=== PATIENT | female | born 1975 | race Caucasian/White ===

== ENCOUNTER 2025-06-01 23:32 | Emergency (ER) | payer OTHER, SELFPAY ==
--- NOTE | ~2025-06-01 | CT_ITS ---
EXAMINATION: CT abdomen pelvis w con DATE: 06/02/2025 02:05 INDICATION: Pelvic pain. Abscess. TECHNIQUE: Computed tomography (CT) of the abdomen and pelvis was performed with 100 mL Omnipaque-350 intravenous contrast. Automated exposure control and iterative reconstruction technique were employe d. The dose-length product was 2111.97 mGy-cm. COMPARISON: None FINDINGS: Lung bases are clear. Heart size normal. No pericardial or pleural effusion. Multiple small calcified gallstones the dependent aspect of the normal-appearing gallbladder. Liver, spleen, pancreas, bilate ral adrenal glands and kidneys are normal. Bowels including appendix are normal. Bladder, anteverted uterus and bilateral adnexa are unremarkable. No free intraperitoneal gas or fluid. There is prominen t soft tissue gas and stranding in the subcutaneous fat at the right pudendal region extending cephal ad into the right inguinal region and with minimal amount of gas within the right inguinal canal prop er which is concerning for necrotizing fasciitis. No abscess. Mild likely reactive right inguinal lym phadenopathy. No other pathologically enlarged abdominal or pelvic lymphadenopathy. Bones are unremar kable. IMPRESSION: 1. Stranding in soft tissue gas in the subcutaneous tissues at the right pudendal and inguinal region s suspicious for necrotizing fasciitis. Emergent surgical consultation was recommended and findings d iscussed with Dr. Nubia Benson by Dr. Rajesh Liu at 2:31 AM (-05:00). 2. Cholelithiasis. No acute intra-abdominal/pelvic process. Reviewed, dictated and finalized at location A. IMPRESSION: 1. Stranding in soft tissue gas in the subcutaneous tissues at the right pudend al and inguinal regions suspicious for necrotizing fasciitis. Emergent surgical consultation was recommended and findings discussed with Dr. Nubia Benson b y Dr. Rajesh Liu at 2:31 AM (-05:00). 2. Cholelithiasis. No acute intra-abdominal/pelvic process.
[2025-06-02] VITALS (14 sets, daily range): BP systolic 108–122; BP diastolic 42–60; PULSE 89–103; RESP 14–36; TEMP 36.6; O2SAT 96–99
--- OUTSIDE RECORDS SUMMARY | 2025-06-02 00:12 | XMS_ITS | Encounter Summary ---
Author Organization [facility] Address [address] [place] [address] Care Team Providers Care Systems Engineer Name Role Phone Rosie Aguilera DO Primary Care Provider [phone] Encounter Details Date Type Department Care Team (Late Contact Info) Description 05/22/2025 Results Follow-Up [facility] Family & Internal Medicine [address] [phone] Rosie Aguilera DO [address] [address] LIPID PANEL, BASIC METABOLIC PANEL, ALBUMIN URINE RANDOM W/CREATININE Social History Tobacco Use Types Packs/Day Years Used Date Smoking Tobacco: Never Smokeless Tobacco: Never Comments:Counseled by Dr Charisse vu. 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 [address] [place] [address] 12/26/2025 10:20 AM CDT Office Visit [facility] Medical Group Pulmonology Specialty Clinic - [address] [place] [address] Sebastien Naik MD 3 [facility] [address] [place] [address] documented as of this encounter Visit Diagnoses Diagnosis Dyslipidemia- Primary Other and unspecified hyperlipidemia documented in this encounter Additional Health Concerns Assessment Noted Time PHQ-9 Depression Total Score: 8 05/21/20 23 1:09 PM CDT documented as of this encounter Care Teams Systems Engineer Relationship Specialty Start Date End Date Rosie Aguilera DO [address] [place] [address] PCP - General FAMILY PRACTICE 05/21/25 documented as of this encounter
--- OUTSIDE RECORDS SUMMARY | 2025-06-02 00:12 | XMS_ITS | Encounter Summary ---
Author Organization [facility] Address [facility] [place] [address] Care Team Providers Care Spa Assistant Manager Name Role Phone Rosie Aguilera DO Primary Care Provider Encounter Details Date Type Department Care Team (Late st Contact Info) Description 05/21/2023 MyChart Message Enc [facility] Medical Group Multispecialty Care - [place] [address] [place] [address] [address] [place] [address] Sarthak Munguia MD [address] [place] [address] [address] [place] [address] Ileana Social History Tobacco Use Types Packs/Day Years Used Date Smoking Tobacco: Never Smokeless Tobacco: Never Comments:Counseled by Dr Charisse vu. 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 Question Answer Date of Assessment Author Status Little interest or pleasure in doing things Several days 05/21/2023 1:09 PM CDT Pennie Giordano Activ e Feeling down, depressed, or hopeless Several days 05/21/2023 1:09 PM CDT Pennie Giordano Active Patient Health Questionnaire-2 Score 2 05/21/2023 1:09 PM CDT Pennie Giordano Active * Question Answer Date of Assessment Author Status Trouble falling or staying asleep, or sleeping too much Nearly every day 05/21/2023 1:09 PM CDT Pennie Giordano Active Feeling tired or having little energy More than half the days 05/21/2023 1:09 PM CDT Pennie Giordano Active Poor appetite or overeating Not at all 05/21/2023 1:09 PM CDT Pennie Giordano Active Feeling bad about yourself - or that you are a failure or have let yourself or your family down Several days 05/21/2023 1:09 PM CDT Pennie Giordano Active Trouble concentrating on things, such as reading the newspaper or watching television Not at all 05/21/2023 1:09 PM SHUKRIT Pennie Giordano Active Moving or speaking so slowly that other people could have noticed? Or the opposite - being so fidgety or restless that you have been moving around a lot more than usual. Not at all 05/21/2023 1:09 PM SHUKRIT Pennie Giordano Active Thoughts that you would be better off or hurting yourself in some way Not at all 05/21/2023 1:09 PM CDT Pennie Giordano Active Patient Health Questionnaire-9 Score 8 05/21/2023 1:09 PM SHUKRIT Pennie Giordano Active * Calculated C-SSRS Risk Score (Lifetime/Recent) Answer Date of Assessment Author Status No Risk Indicated 05/21/2023 1:38 PM CDT Sarthak Munguia MD Active * If you checked off any problems on this questionnaire so far, Question Answer Date of Assessment Author Status How difficult have these problems made it for you to do your work, take care of things at home, or get along with other people? Somewhat difficult 05/21/2023 1:09 PM Pennie Brody Active * Over the last 2 weeks, how often have you been bothered by any of the following problems? Question Answer Date of Assessment Author Status Feeling nervous, anxious, or on edge 1 05/21/2023 1:10 PM CDT Giordano, Pennie D Activ e Not being able to stop or control worrying 0 05/21/2023 1:10 PM CDT Giordano Pennie D Acti ve Worrying too much about different things 0 05/21/2023 1:10 PM CDT Giordano Pennie D Acti ve Trouble relaxing 1 05/21/2023 1:10 PM CDT Echharris salgado Pennie D Active Being so restless that it is hard to sit still 0 05/21/2023 1:10 PM CDT Giordano, Pennie D Act abbie Becoming easily annoyed or irritable 3 05/21/2023 1:10 PM CDT Pasquale Pennie D Activ e Feeling afraid as if something awful might happen 0 05/21/2023 1:10 PM CDT Pasquale Pennie D Active SYD-7 Total Score 5 05/21/2023 1:10 PM CDT Latoya Orozcoi D Active * [place] Suicide Severity Rating Scale (Screener/Recent Self-Report) Question Answer Date of Assessment Author Status 1. Wish to be (Past 1 Month) No 05/21/2023 1:38 PM CDT Sarthak Munguia MD Active 2. Non-Specific Active Suici delmar Thoughts (Past 1 Month) No 05/21/2023 1:38 PM CDT Sarthak Munguia MD Active 6. Suicidal Behavior (Lifetime) No 05/21/2023 1:38 PM CDT Sarthak Munguia MD Active documented as of this encounter Plan of Treatment Upcoming Encounters Date Type Department Care Team (Late st Contact Info) Description 06/07/2025 9:00 AM CDT Office Visit [facility] Medical Group Family & Internal Medicine [address] [phone] Rosie Aguilera, DO [address] [address] 12/26/2025 10:20 AM CDT Office Visit [facility] Medical Group Pulmonology Specialty Clinic - [place] [address] [place] [address] Sebastien Naik MD [address] [place] [address] documented as of this encounter Visit Diagnoses Not on filedocumented in this encounter Additional Health Concerns Assessment Noted Time PHQ-9 Depression Total Score: 8 05/21/20 23 1:09 PM CDT documented as of this encounter Care Teams Spa Assistant Manager Relationship Specialty Start Date End Date Rosie Aguilera DO [address] [place] [address] PCP - General FAMILY PRACTICE 05/21/25 documented as of this encounter
--- OUTSIDE RECORDS SUMMARY | 2025-06-02 00:12 | XMS_ITS | Encounter Summary ---
Author Organization [facility] Address [facility] [place] [address] Care Team Providers Care Stadium Manager Name Role Phone Rosie Aguilera DO Primary Care Provider [phone] Encounter Details Date Type Department Care Team (Latest Contact Info) Description 11/17/2023 MyChart Message Enc [facility] Multispecialty Care - [place] [address] [address] [place] [address] [place] [address] [place] [address] [address] [place] [address] Pre-Authorization Needed for Farxiga 5mg Social History Tobacco Use Types Packs/Day Years Used Date Smoking Tobacco: Never Smokeless Tobacco: Never Comments:Counseled by Dr Charisse vu. 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 [place] [address] [place] [address] documented as of this encounter Visit Diagnoses Not on filedocumented in this encounter Additional Health Concerns Assessment Noted Time PHQ-9 Depression Total Score: 8 05/21/20 23 1:09 PM CDT documented as of this encounter Care Teams Stadium Manager Relationship Specialty Start Date End Date Rosie Aguilera DO [address] [place] [address] PCP - General FAMILY PRACTICE 05/21/25 documented as of this encounter
--- OUTSIDE RECORDS SUMMARY | 2025-06-02 00:12 | XMS_ITS | Encounter Summary ---
Author Organization [facility] Address [facility] [place] [address] Care Team Providers Care Jacket Changer Name Role Phone Rosie Aguilera DO Primary Care Provider [phone] Encounter Details Date Type Department Care Team (Latest Contact Info) Description 02/29/2024 MyChart Message Enc [facility] Multispecialty Care - [place] [address] [place] [address] [address] [place] [address] [place] [address] [place] [address] [address] [place] [address] Need Antibiotics for a skin Abcess Social History Tobacco Use Types Packs/Day Years Used Date Smoking Tobacco: Never Smokeless Tobacco: Never Comments:Counseled by Dr Charisse vu. 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 Gender Identity Female 05/21/2025 1:18 PM CDT Sexual Orientation Not on file documented as of this encounter Plan of Treatment Upcoming Encounters Date Type Department Care Team (Late st Contact Info) Description 06/07/2025 9:00 AM CDT Office Visit [facility] Medical Group Family & Internal Medicine - [address] [phone] Rosie Aguilera DO [address] [address] 12/26/2025 10:20 AM CDT Office Visit [facility] Medical Group Pulmonology Specialty Clinic - [address] [place] [address] Sebastien Naik MD [address] [place] [address] documented as of this encounter Visit Diagnoses Not on filedocumented in this encounter Additional Health Concerns Assessment Noted Time PHQ-9 Depression Total Score: 8 05/21/20 23 1:09 PM CDT documented as of this encounter Care Teams Jacket Changer Relationship Specialty Start Date End Date Rosie Aguilera DO [address] [place] [address] PCP - General FAMILY PRACTICE 05/21/25 documented as of this encounter
--- OUTSIDE RECORDS SUMMARY | 2025-06-02 00:12 | XMS_ITS | Encounter Summary ---
Author Organization [facility] Address [facility] [place] [address] Care Team Providers Care Core Dipper Name Role Phone Rosie Aguilera DO Primary Care Provider [phone] Encounter Details Date Type Department Care Team (Latest Contact Info) Description 05/26/2023 MyChart Message Enc [facility] Multispecialty Care - [place] [address] [place] [address] [address] [place] [address] [place] [address] [place] [address] 157 [place] [address] your rybelsus is approved thanks. Social History Tobacco Use Types Packs/Day Years Used Date Smoking Tobacco: Never Smokeless Tobacco: Never Comments:Counseled by Dr Charisse vu. 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 Gender Identity Female 05/21/2025 1:18 PM CDT Sexual Orientation Not on file documented as of this encounter Plan of Treatment Upcoming Encounters Date Type Department Care Team (Late st Contact Info) Description 06/07/2025 9:00 AM CDT Office Visit [facility] Medical Group Family & Internal Medicine - [address] [phone] Rosie Aguilera DO [address] [address] 12/26/2025 10:20 AM CDT Office Visit [facility] Medical Group Pulmonology Specialty Clinic - [address] [place] [address] Sebastien Niak MD [address] [place] [address] documented as of this encounter Visit Diagnoses Not on filedocumented in this encounter Additional Health Concerns Assessment Noted Time PHQ-9 Depression Total Score: 8 05/21/20 23 1:09 PM CDT documented as of this encounter Care Teams Core Dipper Relationship Specialty Start Date End Date Rosie Aguilera DO [address] [place] [address] PCP - General FAMILY PRACTICE 05/21/25 documented as of this encounter
--- OUTSIDE RECORDS SUMMARY | 2025-06-02 00:12 | XMS_ITS | Encounter Summary ---
Author Organization [facility] Address [facility] [place] [address] Care Team Providers Care Movie Theater Usher Name Role Phone Rosie Aguilera DO Primary Care Provider [phone] Encounter Details Date Type Department Care Team (Late st Contact Info) Description 06/10/2023 MyChart Message Enc [facility] Multispecialty Care - [place] [address] [address] [place] [address] [place] [address] [place] [address] 157 [place] [address] Blood Work Social History Tobacco Use Types Packs/Day Years Used Date Smoking Tobacco: Never Smokeless Tobacco: Never Comments:Counseled by Dr Charisse vu. 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 Gender Identity Female 05/21/2025 1:18 PM CDT Sexual Orientation Not on file documented as of this encounter Plan of Treatment Upcoming Encounters Date Type Department Care Team (Late st Contact Info) Description 06/07/2025 9:00 AM CDT Office Visit [facility] Family & Internal Medicine - [address] [phone] Rosie Aguilera DO [address] [address] 12/26/2025 10:20 AM CDT Office Visit [facility] Medical Group Pulmonology Specialty Clinic - [address] [place] [address] Sebastien Naik MD [address] [place] [address] [place] [address] documented as of this encounter Visit Diagnoses Not on filedocumented in this encounter Additional Health Concerns Assessment Noted Time PHQ-9 Depression Total Score: 8 05/21/20 23 1:09 PM CDT documented as of this encounter Care Teams Movie Theater Usher Relationship Specialty Start Date End Date Rosie Aguilera DO [address] [place] [address] PCP - General FAMILY PRACTICE 05/21/25 documented as of this encounter
--- OUTSIDE RECORDS SUMMARY | 2025-06-02 00:12 | XMS_ITS | Encounter Summary ---
Author Organization [facility] Address [facility] [place] [address] Care Team Providers Care Lean Engineer Name Role Phone Rosie Aguilera DO Primary Care Provider [phone] Encounter Details Date Type Department Care Team (Latest Contact Info) Description 05/26/2023 MyChart Message Enc [facility] Multispecialty Care - [address] [place] [address] Ana Stanton NP Prior authorization for Rybelsus Social History Tobacco Use Types Packs/Day Years Used Date Smoking Tobacco: Never Smokeless Tobacco: Never Comments:Counseled by Dr Charisse vu. 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 Gender Identity Female 05/21/2025 1:18 PM CDT Sexual Orientation Not on file documented as of this encounter Plan of Treatment Upcoming Encounters Date Type Department Care Team (Late st Contact Info) Description 06/07/2025 9:00 AM CDT Office [facility] Family & Internal Medicine - [address] [address] Rosie Aguilera DO [address] [address] 12/26/2025 10:20 AM CDT Office Visit [facility] Pulmonology Specialty Clinic - [address] [place] [address] Sebastien Naik MD [address] [place] [address] documented as of this encounter Visit Diagnoses Not on filedocumented in this encounter Additional Health Concerns Assessment Noted Time PHQ-9 Depression Total Score: 8 05/21/20 23 1:09 PM CDT documented as of this encounter Care Teams Lean Engineer Relationship Specialty Start Date End Date Rosie Aguilera DO [address] [place] [address] PCP - General FAMILY PRACTICE 05/21/25 documented as of this encounter
--- OUTSIDE RECORDS SUMMARY | 2025-06-02 00:12 | XMS_ITS | Encounter Summary ---
Author Organization [facility] Address [facility] [place] [address] Care Team Providers Care Sandwich Artist Name Role Phone Rosie Aguilera DO Primary Care Provider [phone] Encounter Details Date Type Department Care Team (Late st Contact Info) Description 05/24/2023 MyChart Message Enc [facility] Multispecialty Care - [place] [address] [address] [place] [address] Sarthak Munguia MD [address] [place] [address] [address] [place] [address] Ileana Social History Tobacco Use Types Packs/Day Years Used Date Smoking Tobacco: Never Smokeless Tobacco: Never Comments:Counseled by Dr Charisse vu. 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 Gender Identity Female 05/21/2025 1:18 PM CDT Sexual Orientation Not on file documented as of this encounter Plan of Treatment Upcoming Encounters Date Type Department Care Team (Late st Contact Info) Description 06/07/2025 9:00 AM CDT Office Visit [facility] Medical Group Family & Internal Medicine - [address] [address] Rosie Aguilera DO [address] [address] 12/26/2025 10:20 AM CDT Office Visit [facility] Medical Group Pulmonology Specialty Clinic - [address] [place] [address] Sebastien Naik MD [address] [place] [address] documented as of this encounter Visit Diagnoses Not on filedocumented in this encounter Additional Health Concerns Assessment Noted Time PHQ-9 Depression Total Score: 8 05/21/20 23 1:09 PM CDT documented as of this encounter Care Teams Sandwich Artist Relationship Specialty Start Date End Date Rosie Aguilera DO [address] [place] [address] PCP - General FAMILY PRACTICE 05/21/25 documented as of this encounter
--- OUTSIDE RECORDS SUMMARY | 2025-06-02 00:13 | XMS_ITS | Clinical Summary ---
Author Organization [facility] Address [address] [place] [address] Care Team Providers Care Greaser Helper Name Role Phone Rosie Aguilera DO Primary Care Provider [phone] Allergies Active Allergy Reactions Criticality Noted Date Comments Seasonal Runny Nose 05/21/2025 Medications insulin glargine (LANTUS SOLOSTAR) 100 UNIT/ML injection (PEN)Indications :Type 2 diabetes mellitus with hyperglycemia, with long-term current use of insulin ([facility]) Inject 28 Units into the skin nightly at bedtime. 15 mL 1 024 Active Additional Information Patient taking differently: 47 UnitsSubcutaneous Nightly at bedtime, Reported on 06/01/2025 insulin lispro, 1 Unit Dial, (HUMALOG) 100 UNIT/ML injection (PEN)Indications :Type 2 diabetes mellitus with hyperglycemia, with long-term current use of insulin ([facility]) Inject 6 Units into the skin 3 (three) times daily before meals. 9 mL 5 024 Active pravastatin (PRAVACHOL) 40 MG tabletIndication s:Type 2 diabetes mellitus with hyperglycemia, with long-term current use of insulin ([facility]),Hyperli pidemia associated with type 2 diabetes mellitus ([facility] HHS/HCC) TAKE 1 TABLET(40 MG) BY MOUTH EVERY NIGHT AT BEDTIME 90 tablet 1 024 Active lisinopril-hydro CHLOROthiazide (ZESTORETIC) 20-25 MG tabletIndication s:Type 2 diabetes mellitus with hyperglycemia, with long-term current use of insulin ([facility]),Hyperte nsion associated with type 2 diabetes mellitus ([facility]) take 1 tablet by mouth daily 90 tablet Active buPROPion XL (WELLBUTRIN XL) 150 MG 24 hr tabletIndication s:Anxiety,Episod e of recurrent major depressive disorder, unspecified depression episode severity TAKE 1 TABLET(150 MG) BY MOUTH EVERY MORNING 90 tablet 024 Active amLODIPine (NORVASC) 10 MG tablet Take 1 tablet (10 mg total) by mouth daily. Active venlafaxine XR (EFFEXOR-XR) 75 MG 24 hr capsule Take 1 capsule (75 mg total) by mouth daily. Active Drospirenone (SLYND) 4 MG Tab Take 4 mg by mouth daily. Active empagliflozin (JARDIANCE) 10 MG tabletIndication s:Type 2 diabetes mellitus with hyperglycemia, with long-term current use of insulin ([facility]) Take 1 tablet (10 mg total) by mouth daily. 30 tablet 2 025 Active atorvastatin (LIPITOR) 40 MG tabletIndication s:Dyslipidemia Take 1 tablet (40 mg total) by mouth nightly at bedtime. 30 tablet 3 025 Active estradiol (VIVELLE-DOT) 0.05 MG/24HR patch Place 1 patch (0.05 mg total) onto the skin twice a week. Active sulfamethoxazole -trimethoprim (BACTRIM DS) 800-160 MG tabletIndication s:Abscess Take 2 tablets by mouth 2 (two) times daily for 10 days. 40 tablet 025 2024 Active traMADol (ULTRAM) 50 MG tabletIndication s:Acute Pain < 7 Day Supply Take 1 tablet (50 mg total) by mouth every 6 (six) hours as needed for Pain. Indications: Acute Pain < 7 Day Supply 15 tablet 025 2024 Active nystatin (MYCOSTATIN) powderIndication s:Intertrigo Apply topically 2 (two) times daily. 30 g 025 Active Norgestimate-Eth inyl Estradiol 0.18/0.215/0.25 MG-25 MCG tabletIndication s: control counseling,Encou nter for surveillance of contraceptive pills Take 1 tablet by mouth daily. 28 tablet 023 2024 Discontin ued(Other - Please enter comment in Notes field) CPAP DEVICE, DME,Indications: CHUY (obstructive sleep apnea) Use nightly while sleeping; send to [facility]. 1 Device 023 2024 Discontin ued(Side effects) TRI-SPRINTEC 0.18/0.215/0.25 MG-35 MCG tablet Take 1 tablet by mouth daily. 023 2024 Discontin ued(Other - Please enter comment in Notes field) FLUoxetine (PROZAC) 20 MG capsuleIndicatio ns:Anxiety,Episo de of recurrent major depressive disorder, unspecified depression episode severity Take 3 capsules (60 mg total) by mouth daily. 270 capsule 1 023 2024 Discontin ued(Side effects) Semaglutide (RYBELSUS) 14 MG TabIndications:D iabetes Mellitus Take 14 mg by mouth daily. Indications: Diabetes 90 tablet 024 2024 Discontin ued(Side effects) Dapagliflozin Propanediol (FARXIGA) 5 MG TabIndications:T ype 2 diabetes mellitus with hyperglycemia, with long-term current use of insulin ([facility]) Take 1 tablet by mouth daily. 90 tablet 024 2024 Discontin ued(Side effects) buPROPion XL (WELLBUTRIN XL) 150 MG 24 hr tablet Take 1 tablet (150 mg total) by mouth daily. 2024 Discontin ued(Dupli rowena Med) SLYND 4 MG Tab 025 2024 Discontin ued(Dupli rowena Med) Active Problems Problem Noted Date Diagnosed Date Essential hypertension 03/08/2023 Morbid obesity 03/08/2023 Moderate episode of recurrent major depressive d isorder 08/12/2020 Overview (01/11/2023): Last Assessment & Plan: Stable Continue bupropion and fluoxetine BMI 60.0-69.9, adult 04/08/2018 Overview (01/11/2023): Last Assessment & Plan: BMI Follow-up includes: nutrition counseling, exercise counseling and education provided. Persistent disorder of initiating or maintaining sleep 04/08/2018 Obstructive sleep apnea 03/09/2018 Overview (01/11/2023): Last Assessment & Plan: Non compliant with CPAP Encouraged patient to use CPAP any time she sleeps or takes a nap Anxiety and depression 04/19/2017 Overview (01/11/2023): Last Assessment & Plan: Increase fluoxetine to 60mg daily Continue bupropion Encouraged her to start counseling Consider addition of buspar if anxiety remains uncontrolled Abnormal cervical Papanicolaou smear 04/06/2017 Type 2 diabetes mellitus ([facility]) 04/06 Overview (01/28/2023): Last Assessment & Plan: A1c today Continue omnipod Will check with insurance which GLP-1 is covered. Hyperlipidemia 01/24/2016 Overview (01/11/2023): Hyperlipidemia, unspecified hyperlipidemia type Last Assessment & Plan: Continue pravastatin Lipid panel today Resolved Problems Problem Noted Date Diagnosed Date Resolved Date Bilateral carpal tunnel syndrome 04/11/2020 05/18/2025 Overview (05/18/2025): Last Assessment & Plan: Recommended wearing wrist splints at night Referred to PMR for further management Difficulty using continuous positive airway pressure (CPAP) device 05/09/2018 05/18/2025 Left lower quadrant abdominal mass 04/28/2018 05/18/2025 Overview (05/18/2025): Last Assessment & Plan: states it is getting harder, reports no constitutional symptoms, I believe this is either due to injection or insect bite at this point I think we can safely follow her admitting have her try to use heat Encounters Date Type Department Care Team Description 06/01/2025 8:20 AM CDT Office Visit [facility] Family & Internal [address] [phone] Rosie Aguilera, DO Abscess (Pt is here today for a painful abscess on upper right inner thigh. Painful to walk. ) 06/01/2025 Abstract [facility] [place] [address] Delilah Hunt MA 06/01/2025 MyChart Message Enc [facility] [address] [phone] Rosie Aguilera, DO Abcess 06/01/2025 Travel 05/31/2025 Telephone [facility] [address] [phone] Rosie Aguilera, DO Advice (Nurse Triage - After Hours ([id number])/) 05/25/2025 Scan HEALTH INFO SRVCS Scanned, [facility] 05/25/2025 Telephone [facility] [address] [phone] Rosie Aguilera, DO Derm Problem 05/25/2025 MyChart Message Enc [facility] [address] [phone] Rosie Aguilera, DO [facility] 05/22/2025 MyChart Message Enc [facility] Family & Internal [address] [phone] Rosie Aguilera, DO Atorvastatin 05/22/2025 Results Follow-Up [facility] [address] [phone] Rosie Aguilera, DO LIPID PANEL, BASIC METABOLIC PANEL, ALBUMIN URINE RANDOM W/CREATININE 05/21/2025 1:00 PM CDT Office Visit [facility] Family & Internal Medicine [address] [phone] Rosie Aguilera, DO Meet and Greet Provider (P{t is here today for establish PCP. ); Hypertension; Hyperlipidemia; Diabetes 05/21/2025 Travel 03/15/2025 Scan [facility] HEALTH INFO SRVCS Scanned, [facility] 03/06/2025 Scan [facility] HEALTH INFO SRVCS Scanned, [facility] from Last 3 Months Immunizations Immunization Administration Dates Next Due Influenza (Generic) 10/18/2016 Influenza Adult (Generic) 07/26/2019,07/21/2018, 09/28/2016,07/18/2015 Tdap (Generic) 07/26/2019 Family History Medical History Relation Comments Depression Brother Cancer Father Lung Cancer Hypertension Father Cancer Maternal Grandfather Colon Cance r Colon Cancer Maternal Grandfather Diabetes Maternal Grandfather Heart Attack Maternal Grandfather Heart Disease Maternal Grandfather Hypertension Maternal Grandfather Diabetes Maternal Grandmother Heart Disease Maternal Grandmother Hypertension Maternal Grandmother Breast Cancer Maternal cousin Arthritis Mother COPD Mother Cancer Mother Kidney Cancer, S kin Cancer, Lung Cancer Diabetes Mother Early Mother at 72 in 20 20 Hyperlipidemia Mother Hypertension Mother Kidney Disease Mother Was on dialysis renal cancer Mother Diabetes Paternal Aunt Heart Attack Paternal Grandfather Heart Disease Paternal Grandfather Stroke Paternal Grandfather Cancer Paternal Grandmother Lukemia Diabetes Paternal Uncle 1 Diabetes Paternal Uncle 2 Diabetes Paternal Uncle 3 Thyroid cancer Sister 1 Cancer Sister 2 Thyroid Cancer Depression Sister 2 Relation Status Comments Brother Alive Father Alive Maternal Grandfather Maternal Grandmother Maternal cousin Mother Alive Paternal Aunt Paternal Grandfather Paternal Grandmother Paternal Uncle 1 Alive Paternal Uncle 2 Paternal Uncle 3 Alive Sister 1 Sister 2 Alive Social History Tobacco Use Types Packs/Day Years Used Date Smoking Tobacco: Never Smokeless Tobacco: Never Tobacco Cessation:Counseling Given: Yes Comments:Counseled by Dr Munguia. Alcohol Use Standard Drinks/Week Comments Never 0 (1 standard drink = 0.6 oz pur e alcohol) PHQ-2 Answer Date Recorded Patient Health Questionnaire-2 Score 1 05/21/2025 Comments No Sex and Gender Information Value Date Recorded Sex Assigned at Female 05/21/2025 1:18 PM CDT Legal Sex Female 8:24 AM ROUTE RETURNER Gender Identity Female 05/21/2025 1:18 PM CDT Sexual Orientation Not on file Last Filed Vital Signs Vital Sign Reading Time Taken Comments Blood Pressure 138/62 06/01/2025 8:08 AM CDT Pulse 113 06/01/2025 8:08 AM CDT Temperature 36.4 C (97.5 F) 06/01/2025 8:08 AM CDT Respiratory Rate 18 06/01/2025 8:08 AM CDT Oxygen Saturation 99% 06/01/2025 8:08 AM CDT Inhaled Oxygen Concentration - - Weight 159.5 kg (351 lb 11.2 oz) 06/01/2025 8:08 AM CDT Height 154.9 cm (5' 1) 06/01/2025 8:08 AM CDT Body Mass Index 66.45 06/01/2025 8:08 AM CDT Plan of Treatment Upcoming Encounters Date Type Department Care Team (Late st Contact Info) Description 06/07/2025 9:00 AM CDT Office Visit [facility] Family & Internal Medicine - [address] [phone] Rosie Aguilera DO 3 [facility] [address] [place] [address] 12/26/2025 10:20 AM CDT Office Visit [facility] Pulmonology Specialty Clinic - [address] [place] [address] Sebastien Naik MD 3 [facility] [address] [place] [address] Health Maintenance Due Date Last Done Comments Cervical Cancer Screening Pap Smear (Age 30 to 64) Every 3 Years 01/29/2024 01/28/2021 Annual Physical 05/21/2024 05/21/2023 Diabetes: Retinopathy Eye Exam 06/21/2025 Postponed from 1995 (Future Appointment) Hemoglobin A1C 08/21/2025 05/21/2025, 11/0 03/2023, 08/23/2023, Additional history exists Cervical Cancer Screening Pap with HPV Testing (Age 30 to 64) Every 5 Years 01/28/2026 01/28/2021 Cervical Cancer Screening with HPV 01/28/2026 COVID-19 Vaccine (2023- season) 2026 Postponed from 06/18/2024 (Patient Refused) Colorectal Cancer Screening Colonoscopy (10 Years) 05/21/2026 Postponed from 1977 (Patient Refused) Hepatitis B Vaccines (1 of 3 - 19+ 3-dose series) 05/21/2026 Postponed from 1996 (Patient/Guardian Refusal) Kidney Health Evaluation 05/21/2026 05/21/2025 Lipid Panel 05/21/2026 05/21/2025, 03/2023, 01/11/2023 Mammogram Screening 05/21/2026 04/09/2023, 03/03/2023, 11/14/2021, Additional history exists Postponed from 04/09/2025 (Patient Refused) Pneumococcal Vaccine: Pediatrics (0 to 5 Years) and At-Risk Patients (6 to 49 Years) (1 of 2 - PCV) 05/21/2026 Postponed from 1996 (Patient Refused) DTaP, Tdap and Td Vaccines (2 - Td or Tdap) 07/26/2029 07/26/2019 Hepatitis C Completed 08/23/2023 PHQ-2 (Physician Eek) Completed 05/21/2025 Meningococcal B Vaccine Aged Out No l onger eligible based on patient's age to complete this topic Meningococcal Vaccine Aged Out No dyan john eligible based on patient's age to complete this topic RSV Immunizations Under 20 Months Aged Out No longer eligible based on patient's age to complete this topic Procedures Procedure Name Priority Date/Time Associated Diagnosis Comments ALBUMIN URINE RANDOM W/CREATININE Routine 05/21/2025 4:21 PM CDT Type 2 diabetes mellitus with hyperglycemia, with long-term current use of insulin ([facility]) Essential hypertension BASIC METABOLIC PANEL Routine 05/21/2025 2:27 PM CDT Type 2 diabetes mellitus with hyperglycemia, with long-term current use of insulin ([facility]) Essential hypertension LIPID PANEL Routine 05/21/2025 2:27 PM CDT Hyperlipidemia, unspecified hyperlipidemia type COLLECTION VENOUS BLOOD VENIPUNCTURE Routine 05/21/2025 2:20 PM CDT Type 2 diabetes mellitus with hyperglycemia, with long-term current use of insulin ([facility]) Essential hypertension Hyperlipidemia, unspecified hyperlipidemia type COLLECT.CAPILLARY (FNGR,HEEL,EAR) Routine 05/21/2025 1:10 PM CDT Type 2 diabetes mellitus with hyperglycemia, with long-term current use of insulin ([facility]) HEMOGLOBIN, GLYCOSYLATED Routine 05/21/2025 HEPATITIS C ANTIBODY 08/23/2023 10:05 AM ROUTE RETURNER MG DIAG W JOE LT DIGI Routine 04/09/2023 1:25 PM CDT Abnormal mammogram from Last 3 Months or Most Recently Relevant to Health Maintenance Results * (ABNORMAL) ALBUMIN URINE RANDOM W/CREATININE (05/21/2025 4:21 PM CDT) MICROALBUMIN (U) 23.3(H) <20 MG/L 05/22/20 10:04 AM CDT [facility] CREATININE RANDOM (U) 127.5 MG/DL 05/22/2025 10:04 AM CDT [facility] ALBUMIN/CREAT RATIO 18.3 <30 MG/G 05/22/2025 10:04 AM CDT [facility] URINE SPECIMEN / Unknown 05/21/2025 4:21 PM CDT us Rosie Aguilera DO URINE ORDERABLES Final Result [facility] [address] [place] [address], [place] [phone] * (ABNORMAL) BASIC METABOLIC PANEL (05/21/2025 2:27 PM CDT) Pathologist [facility] SODIUM S/P/B 139 136 - 145 MMOL/L 05/22/2025 10:07 AM [facility] POTASSIUM S/P/B 4.9 3.5 - 5.1 MMOL/L 05/22/2025 10:07 AM [facility] CHLORIDE S/P/B 100 98 - 107 MMOL/L 05/22/2025 10:07 AM [facility] CO2 25.7 21 - 32 MMOL/L 05/22/2025 10:07 AM [facility] GLUCOSE 216(H) 70 - 99 MG/DL 05/22/2025 10:07 AM [facility] BUN 25(H) 7 - 18 MG/DL 05/22/2025 10:07 AM [facility] CREATININE S/P/B 0.84 0.55 - 1.02 MG/DL 05/22/2025 10:07 AM [facility] CALCIUM S/P/B 10.0 8.4 - 10.5 MG/DL 05/22/2025 10:07 AM [facility] ANION GAP 13.3 5 - 15 MMOL/L 05/22/2025 10:07 AM [facility] Comment:REFERENCE RANGE NOT ESTABLISHED OSMOLALITY (CALC) 299 MOSM/KG 025 10:07 AM [facility] Comment:REFERENCE RANGE NOT ESTABLISHED GFR ESTIMATE 86(L) >90 ML/MIN/1. 73 M2 05/22/2025 10:07 AM [facility] GFR NOTES GFR REFERENCE S: 05/22/2025 10:07 AM [facility] Comment: THE ESTIMATED GFR IS CALCULATED USING THE 2020 CKD-EPI EQUATION. THE FOLLOWING CATEGORIES FOR GRADING RENAL FUNCTION ARE RECOMMENDED BY THE INTERNATIONAL SOCIETY OF NEPHROLOGY (KDIGO 2012 CLINICAL PRACTICE GUIDELINE). G1,NORMAL OR HIGH: >89 ml/min/1.73 m2 G2,MILDLY DECREASED: 60-89 ml/min/1.73 m2 G3A,MILDLY TO MODERATELY DECREASED: 45-59 ml/min/1.73 m2 G3B,MODERATELY TO SEVERELY DECREASED: 30-44 ml/min/1.73 m2 G4,SEVERELY DECREASED: 15-29 ml/min/1.73 m2 G5,KIDNEY FAILURE: <15 ml/min/1.73 m2 05/21/2025 2:27 PM CDT Rosie Aguilera DO LABORATORY Final Result [facility] [address] [place] [address], * (ABNORMAL) LIPID PANEL (05/21/2025 2:27 PM CDT) CHOLESTEROL 235(H) <200 MG/DL 05/22/2025 10:07 AM CDT [facility] TRIGLYCERIDES 249(H) <150 MG/DL 05/22/2025 10:07 AM T [facility] HDL 71 >40 MG/DL 05/22/2025 10:07 AM CDT [facility] LDL-C 114(H) <100 MG/DL 05/22/2025 10:07 AM CDT [facility] VLDL CALCULATION 50(H) 5 - 28 MG/DL 05/22/2025 10:07 AM T [facility] CHOL/HDL RATIO 3.3 0.0 - 4.0 05/22/2025 10:07 AM CDT [facility] LDL/HDL 1.6 0.41 - 2.13 05/22/2025 10:07 AM T [facility] NON HDL CHOLESTEROL 164(H) <140 MG/DL 05/22/2025 10:07 AM T [facility] 05/21/2025 2:27 PM CDT Rosie Aguilera DO LABORATORY Final Result [facility] [id number] [facility] [place] [address], * HEMOGLOBIN, GLYCOSYLATED (05/21/2025) HGB A1C 10.7 % 05/21/2025 us [facility] Abstract LABORATORY Final Res ult * HEPATITIS C ANTIBODY (08/23/2023 10:05 AM ROUTE RETURNER) HEPATITIS C AB Non Reactive Non Reacti [facility] 1 Comment: HCV antibody alone does not differentiate between previously resolved infection and active infection. Equivocal and Reactive HCV antibody results should be followed up with an HCV RNA test to support the diagnosis of active HCV infection. 08/23/2023 10:0 5 AM ROUTE RETURNER 08/23/2023 Narrative [facility] - 08/24/2023 5:08 AM ROUTE RETURNER Performed at: 01 - [facility] [id number] Plumbing Manager: Maninder Saenz PhD, Phone: [phone] Sarthak Munguia MD LABORATORY Final Result [facility] [address] [place] [address] [facility] 1 * MG DIAG W JOE LT DIGI (04/09/2023 1:25 PM CDT) Anatomical Region Laterality Modality Breast Left Mammography 04/09/2023 3:05 PM CDT Narrative 04/09/2023 3:12 PM CDT EXAMINATION: Digital left diagnostic mammogram with 3-D tomography and left breast ultrasound [id number] EXAM DATE/TIME: 04/09/2023 1:25 PM REASON FOR EXAM: abnormal mammogram COMPARISON: October 2021, April 2020, February 2023. TECHNIQUE: Digital diagnostic mammography of the left breast was performed in addition to 3-D Tomosynthesis technique. This study was read with the assistance of a computer-aided detection system. Grayscale and color Doppler images of the left breast. TISSUE DENSITY: There are scattered areas of fibroglandular density. FINDINGS: The left breast mass is once again identified on compression views. Grade mammogram was performed and subsequent 10 gentle views were performed. The mass did persist. Subsequent targeted ultrasound is performed. At the 9:00 position approximately 10 cm from the nipple there is a small hyperechoic area that is present. This measures approximately 6 millimeters in maximal dimension. This is noted to be hyperechoic. No increased color flow is present within this. This may relate to an area of induration or inflammatory changes present within the subcutaneous breast tissues. Six-month follow-up recommended. =====IMPRESSION:===== Left breast mass persists mammographically. This is suspected to be an area of induration present subcutaneous left breast tissues. Six-month follow up recommended. ASSESSMENT: ACR BI-RADS 3 - PROBABLY BENIGN FINDING(S) - SHORT INTERVAL FOLLOW-UP SUGGESTED Recommendation: 1: Short interval follow-up in 6 months. Right COMMENTS: Ordered By: PAYAL TERAN Interpreted By: Jose Ramon Duque MD, 04/09/2023 3:05 PM Payal Teran MD MAMMO Final Result from Last 3 Months or Most Recently Relevant to Health Maintenance Insurance [facility] Care Teams Greaser Helper Relationship Specialty Start Date End Date Rosie Aguilera DO [address] [place] [phone] PCP - General FAMILY PRACTICE 05/21/25
--- OUTSIDE RECORDS SUMMARY | 2025-06-02 00:13 | XMS_ITS | Encounter Summary ---
Author Organization [facility] Address [address] [place] [address] Care Team Providers Care Drop Forger Name Role Phone Qi Gabriel MD Primary Care Pr ovider [facility] Rosie Aguilera DO Primary Care Provider Encounter Details Date Type Department Care Team (Late st Contact Info) Description 01/15/2023 MyChart Message Enc [facility] Multispecialty [address] [place] [address] Qi [facility] MD [facility] Social History Tobacco Use Types Packs/Day Years Used Date Smoking Tobacco: Never Smokeless Tobacco: Never Comments No Sex and Gender Information Value Date Recorded Sex Assigned at Female 05/21/2025 1:18 PM CDT Legal Sex Female 8:24 AM EXPRESSIVE MUSIC THERAPIST Gender Identity Female 05/21/2025 1:18 PM CDT Sexual Orientation Not on file COVID-19 Exposure Response Date Recorded In the last 10 days, have yo u been in contact with someone who was confirmed or suspected to have Coronavirus/COVID-19? No / Unsure 01/11/2023 8:56 AM CDT documented as of this encounter Plan of Treatment Upcoming Encounters Date Type Department Care Team (Late st Contact Info) Description 06/07/2025 9:00 AM CDT Office Visit [facility] Family & Internal Medicine - [address] [phone] Rosie Aguilera DO [address] [address] 12/26/2025 10:20 AM CDT Office Visit [facility] Pulmonology Specialty Clinic - [address] [place] [address] Sebastien Naik MD 3 [facility] [address] [place] [address] documented as of this encounter Visit Diagnoses Not on filedocumented in this encounter Care Teams Drop Forger Relationship Specialty Start Date End Date Qi Gabriel MD PCP - General FAMILY PRACTICE 01/11/23 03/21/23 Rosie Aguilera DO [address] [place] [id number] PCP - General FAMILY PRACTICE 05/21/25 documented as of this encounter
--- OUTSIDE RECORDS SUMMARY | 2025-06-02 00:13 | XMS_ITS | Encounter Summary ---
Author Organization [facility] Address [address] [place] [address] Care Team Providers Care Nc Machinist Name Role Phone Qi Gabriel MD Primary Care Pr ovider Rosie Gifford DO Primary Care Provider [phone] Encounter Details Date Type Department Care Team (Late Contact Info) Description 01/19/2023 Rupture Message Enc [facility] Multispecialty [address] [place] [address] [place], [facility] Provider medication Social History Tobacco Use Types Packs/Day Years Used Date Smoking Tobacco: Never Smokeless Tobacco: Never Comments No Sex and Gender Information Value Date Recorded Sex Assigned at Female 05/21/2025 1:18 PM CDT Legal Sex Female 8:24 AM PREPARER 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 No / Unsure 01/11/2023 8:56 AM CDT documented as of this encounter Plan of Treatment Upcoming Encounters Date Type Department Care Team (Late Contact Info) Description 06/07/2025 9:00 AM CDT Office Visit [facility] Family & Internal Medicine - [address] [address] Rosie Aguilera DO [address] [place] [address] 12/26/2025 10:20 AM CDT Office Visit [facility] Pul[facility]ology Specialty Clinic - [address] [place] [address] Sebastien Naik MD [address] [place] [address] documented as of this encounter Visit Diagnoses Not on filedocumented in this encounter Care Teams Nc Machinist Relationship Specialty Start Date End Date Qi Gabriel MD PCP - General FAMILY PRACTICE 01/11/23 03/21/23 Rosie Aguilera DO [address] [place] [address] PCP - General FAMILY PRACTICE 05/21/25 documented as of this encounter
--- OUTSIDE RECORDS SUMMARY | 2025-06-02 00:13 | XMS_ITS | Encounter Summary ---
Author Organization [facility] Address [address] [place] [address] Care Team Providers Care Public Transit Trolley Driver Name Role Phone Qi Gabriel MD Primary Care Pr ovider [facility] Rosie Aguilera DO Primary Care Provider [phone] Encounter Details Date Type Department Care Team (Late Contact Info) Description 01/13/2023 MyChart Message Enc [facility] Multispecialty [address] [place] [address] Qi Gabriel MD PRIOR AUTHORIZATION REQUIRED Social History Tobacco Use Types Packs/Day Years Used Date Smoking Tobacco: Never Smokeless Tobacco: Never Comments No Sex and Gender Information Value Date Recorded Sex Assigned at Female 05/21/2025 1:18 PM CDT Legal Sex Female 8:24 AM LEARNING AND DEVELOPMENT INTERN Gender Identity Female 05/21/2025 1:18 PM CDT [...] Description 06/07/2025 9:00 AM CDT Office Visit [facility] Family & Internal Medicine - [address] [address] Rosie Aguilera DO [address] [address] [place] [address] 12/26/2025 10:20 AM CDT Office Visit [facility] Medical Group Pul[facility]ology Specialty Clinic - [address] [place] [address] Sebastien Naik MD [address] [facility] [address] [place] [address] documented as of this encounter Visit Diagnoses Not on filedocumented in this encounter Care Teams Public Transit Trolley Driver Relationship Specialty Start Date End Date Qi Gabriel MD PCP - General FAMILY PRACTICE 01/11/23 03/21/23 Rosie Aguilera DO [address] [place] [address] PCP - General FAMILY PRACTICE 05/21/25 documented as of this encounter
--- OUTSIDE RECORDS SUMMARY | 2025-06-02 00:13 | XMS_ITS | Encounter Summary ---
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 Gender Identity Female 05/21/2025 1:18 PM CDT Sexual Orientation Not on file documented as of this encounter Plan of Treatment Upcoming Encounters Date Type Department Care Team (Late st Contact Info) Description 06/07/2025 9:00 AM CDT Office Visit [facility] Medical Group Family & Internal Medicine - [address] [address] Rosie Aguilera DO [address] [address] 12/26/2025 10:20 AM CDT Office Visit [facility] Medical Group Pulmonology Specialty Clinic - [address] [place] [address] Sebastien Naik MD [address] [place] [address] documented as of this encounter Visit Diagnoses Not on filedocumented in this encounter Additional Health Concerns Assessment Noted Time PHQ-9 Depression Total Score: 8 05/21/20 23 1:09 PM CDT documented as of this encounter Care Teams Repairer Pump Relationship Specialty Start Date End Date Rosie Aguilera DO [address] [place] [address] PCP - General FAMILY PRACTICE 05/21/25 documented as of this encounter
--- OUTSIDE RECORDS SUMMARY | 2025-06-02 00:13 | XMS_ITS | Encounter Summary ---
Author Organization [facility] Address [facility] [place] [address] Care Team Providers Care Garbage Truck Driver Name Role Phone Rosie Aguilera DO Primary Care Provider [phone] Encounter Details Date Type Department Care Team (Latest Contact Info) Description 07/26/2023 MyChart Message Enc [facility] Multispecialty Care - [address] [address] [address] [place] [address] Sarthak Munguia MD [address] [place] [address] 157 [place] [address] UPDATED MEDICATION LIST Social History Tobacco Use Types Packs/Day Years Used Date Smoking Tobacco: Never Smokeless Tobacco: Never Comments:Counseled by Dr Charisse vu. 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 Gender Identity Female 05/21/2025 1:18 PM CDT Sexual Orientation Not on file documented as of this encounter Plan of Treatment Upcoming Encounters Date Type Department Care Team (Late st Contact Info) Description 06/07/2025 9:00 AM CDT Office Visit [facility] Medical Group Family & Internal Medicine - [address] [address] Rosie Aguilera DO [address] [address] 12/26/2025 10:20 AM CDT Office Visit [facility] Medical Group Pulmonology Specialty Clinic - [address] [place] [address] Sebastien Naik MD [address] [place] [address] [place] [address] documented as of this encounter Visit Diagnoses Not on filedocumented in this encounter Additional Health Concerns Assessment Noted Time PHQ-9 Depression Total Score: 8 05/21/20 23 1:09 PM CDT documented as of this encounter Care Teams Garbage Truck Driver Relationship Specialty Start Date End Date Rosie Aguilera DO [address] [place] [address] PCP - General FAMILY PRACTICE 05/21/25 documented as of this encounter
--- OUTSIDE RECORDS SUMMARY | 2025-06-02 00:13 | XMS_ITS | Clinical Summary ---
Author Organization [facility] Address [address] [place] [address] Phone Care Team Providers Care Market Asset Protection Manager Name Role Phone Unavailable Primary Care Provider Unavailabl e Allergies Active Allergy Reactions Criticality Noted Date Comments Bupropion Other (See Comments) Low 04/11/2020 Prochlorperazine Unknown 01/28/2021 Medications amoxicillin-cl avulanate (AUGMENTIN) 875-125 mg tablet Take 1 Tablet by mouth every 12 hours. 14 Tablet 0 Active ALPRAZolam (XANAX) 0.25 mg tablet Take 1 Tablet by mouth see administration instructions. 0 Active metFORMIN (GLUCOPHAGE XR) 500 mg Extended Release 24 hour tablet Take 1,000 mg by mouth daily. 0 Active glipiZIDE (GLUCOTROL XL) 10 mg Extended Release 24 hour tablet Take 10 mg by mouth 2 times daily. 0 Active FLUoxetine (PROzac) 40 mg capsule Take 40 mg by mouth daily. 0 Active dulaglutide (TRULICITY) 1.5 mg/0.5 mL injection Inject 1.5 mg by subcutaneous injection every 7 days. 0 Active pravastatin (PRAVACHOL) 40 mg tablet Take 40 mg by mouth daily. 0 Active lisinopril-hyd roCHLOROthiazi de (ZESTORETIC) 20-25 mg tablet Take 1 Tablet by mouth daily. 1 Active fluticasone propionate (FLONASE) 50 mcg/spray [place], Suspension nasal inhaler Administer 2 Sprays in each nostril see administration instructions. 9 Active Insulin Pump Cartridge (Omnipod Dash 5 Pack Pod) Cartridge Inject 1 Packet by intramuscular injection see administration instructions. 0 Active flash glucose sensor (FreeStyle Ly 14 Day Sensor) Kit Inject 1 Device by intramuscular injection see administration instructions. 0 Active flash glucose scanning reader (FreeStyle Ly 14 Day [place]) Misc Take 1 Tablet by mouth see administration instructions. 0 Active Norgestimate-E thinyl estradiol (Iqd-Qn-Faqqur ec) 0.18/0.215/0.2 5 mg-25 mcg tablet Take 1 Tablet by mouth daily. 84 Tablet 4 1 Active Active Problems No known active problems Family History Medical History Relation Name Comments No Known Problems Daughter No Known Problems Maternal Grandmother No Known Problems Mother No Known Problems Other No Known Problems Sister Breast Cancer Neg Hx Cancer Neg Hx Ovarian Cancer Neg Hx Relation Name Status Comments Daughter Maternal Grandmother Mother Other Sister Social History Tobacco Use Types Packs/Day Years Used Date Smoking Tobacco: Never Smokeless Tobacco: Never Alcohol Use Standard Drinks/Week Comments Never 0 (1 standard drink = 0.6 oz pur e alcohol) Comments No Sex and Gender Information Value Date Recorded Sex Assigned at Not on file 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 Gender Identity Not on file Sexual Orientation Not on file Last Filed Vital Signs Vital Sign Reading Time Taken Comments Blood Pressure 130/70 01/28/2021 2:10 PM CDT Pulse - - Temperature - - Respiratory Rate - - Oxygen Saturation - - Inhaled Oxygen Concentration - - Weight 167.8 kg (370 lb) 01/28/2021 2:10 PM CDT Height 154.9 cm (5' 1) 01/28/2021 2:10 PM CDT Body Mass Index 69.91 01/28/2021 2:10 PM CDT Plan of Treatment Health Maintenance Due Date Last Done Comments DIABETES ANNUAL RETINAL EXAM 1995 DIABETES MICROALBUMIN ANNUAL SCREEN 1995 LDL CHOLESTEROL ANNUAL 1995 HEPATITIS B VACCINES (1 of 3 - 19+ 3-dose series) 1996 BREAST CANCER SCREENING 03/23/2018 03/23/2017 DIABETES HBA1C Q 6 MONTHS 07/17/2021 01/15/2021 DIABETES ANNUAL FOOT EXAM 01/15/2022 01/15/2021 COLORECTAL SCREENING 2022 Colorectal Cancer Screening 2022 FIT-DNA Q 3 years 2022 FIT/FOBT Q 1 year 2022 Flex Sig/CT Colonography Q 5 years 2022 PAP SMEAR 01/29/2024 01/28/2021 INFLUENZA VACCINE (#1) 2025 9, 07/21/2018, 09/28/2016, Additional history exists CERVICAL CANCER SCREENING 01/28/2026 HPV/Cotest (21-29) 01/28/2026 01/28/2021 HPV/Cotest (30-65) 01/28/2026 01/28/2021 DTAP/TDAP/TD VACCINES (2 - T d or Tdap) 07/26/2029 07/26/2019 Procedures Procedure Name Priority Date/Time Associated Diagnosis Comments CERV/VAG CYTO AGE BASED SCREEN PAP Routine 01/28/2021 3:14 PM CDT Well woman exam with routine gynecological exam MAMMO SCREEN BILAT W OR WO CAD Routine 03/23/2017 10:03 AM CDT Visit for screening mammogram from Last 3 Months or Most Recently Relevant to Health Maintenance Results * CERV/VAG CYTO AGE BASED SCREEN PAP (01/28/2021 3:14 PM CDT) COMMENT (PAP): SEE COMMENT 3:39 PM CDT [facility] Comment: This order for age-based cervical cancer and STI screening follows ACOG guidelines(PB 168, 140, KBO945). See individual assays for performing site location. CLINICAL INFORMATION Routine exam 02/03/2021 3:39 PM CDT [facility] LAST MENSTRUAL PERIOD INFORMATION NOT PROVIDED 02/03/2021 3:39 PM CDT [facility] PREV PAP: INFORMATION NOT PROVIDED 02/03/2021 3:39 PM CDT [facility] PREV BX: INFORMATION NOT PROVIDED 02/03/2021 3:39 PM CDT [facility] SOURCE Endocervix 02/03/2021 3:39 PM CDT [facility] ADEQUACY: SEE COMMENT 02/03/2021 3:39 PM CDT [facility] Comment: Satisfactory for evaluation. Endocervical/transformation zone component absent. Age and/or menstrual status not provided PAP INTERP Negative for intraepithelial lesion or malignancy. 02/03/2021 3:39 PM CDT [facility] COMMENT This Pap test has been evaluated with computer assisted technology. 02/03/2021 3:39 PM CDT [facility] ELECTRICAL LOGGING OPERATOR: SEE COMMENT 2020 3:39 PM CDT [facility] Comment: MDG, CT(ASCP) CT screening location: [place] [address] [address] BRIGIDO [facility] REVIEW ELECTRICAL LOGGING OPERATOR: SEE COMMENT 02/03/2021 3:39 PM CDT [facility] Comment: BEF, CT(ASCP) CT screening location: [place] [address] [address] BRIGIDO [facility] EXPLANATORY NOTE SEE COMMENT 3:39 PM CDT [facility] Comment: EXPLANATORY NOTE: The Pap is a screening test for cervical cancer. It is not a diagnostic test and is subject to false negative and false positive results. It is most reliable when a satisfactory sample, regularly obtained, is submitted with relevant clinical findings and history, and when the Pap result is evaluated along with historic and current clinical information. HPV E6/E7 Not Detected Not Detected 02/03/2021 3:39 PM CDT [facility] Comment: Methodology: Software Educator-Mediated Amplification This assay detects E6/E7 viral messenger RNA (mRNA) from 14 high-risk HPV types (16,18,31,33,35,39,45,51,52,56,58,59,66,68). The analytical performance characteristics of this assay have been determined by [employer]. The modifications have not been cleared or approved by the FDA. This assay has been validated pursuant to the CLIA regulations and is used for clinical purposes. For additional information, please refer to http://education.International Battery.Customcells/faq/JVO782q0 (This link if provided for information/ educational purposes only.) Genital SWAB OF ENDOCERVIX / Unknown Collection / Unknown 01/28/2021 3:14 PM CDT 01/28/2021 7:10 PM CDT Narrative [facility] - 02/03/2021 3:39 PM CDT Performing Organization Information: Site ID: [id number] Name: [facility] Address: [address] [address] Director: Manfred Mack D.O., MPH Site ID: [id number] [facility] Address: [address] [place] [id number] Director: Cece Ross us Jerman Berg MD PATHOLOGY/CYTOLOGY ORDERABLES Fi nal Result [facility] [phone] * MAMMO SCREEN BILAT W OR WO CAD (03/23/2017 10:03 AM CDT) Anatomical Region Laterality Modality Breast Bilateral Mammography Narrative 03/23/2017 1:38 PM CDT Bilateral digital screening mammogram with computer assisted diagnosis History: Annual screening exam. Findings: A bilateral screening mammogram was performed. This is the patient's baseline study. The breast parenchyma is almost completely fatty replaced. No masses, suspicious calcifications, or areas of asymmetry or distortion are identified. CAD was utilized. Impression: Negative screening mammogram. Recommendation: Routine annual follow-up Overall Assessment: Birads Category 1: Negative External Provider [facility] MAMMO ORDERABLES Final R esult from Last 3 Months or Most Recently Relevant to Health Maintenance Insurance BC EXCHANGE
--- OUTSIDE RECORDS SUMMARY | 2025-06-02 00:13 | XMS_ITS | Encounter Summary ---
Author Organization [facility] Address [facility] [place] [address] Care Team Providers Care Support Teacher Name Role Phone Rosie Aguilera DO Primary Care Provider [phone] Encounter Details Date Type Department Care Team (Latest Contact Info) Description 04/12/2023 MyChart Message Enc [facility] Multispecialty Care - [address] [address] [address] [place] [address] [place] [address] [place] [address] [address] [place] [address] Need a Refill on Farxiga 5mg STEWART Social History Tobacco Use Types Packs/Day Years Used Date Smoking Tobacco: Never Smokeless Tobacco: Never Comments No Sex and Gender Information Value Date Recorded Sex Assigned at Female 05/21/2025 1:18 PM CDT 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 Gender Identity Female 05/21/2025 1:18 PM CDT Sexual Orientation Not on file documented as of this encounter Plan of Treatment Upcoming Encounters Date Type Department Care Team (Late st Contact Info) Description 06/07/2025 9:00 AM CDT Office Visit [facility] Family & Internal Medicine - [address] [address] Rosie Aguilera DO [address] [address] 12/26/2025 10:20 AM CDT Office Visit [facility] Pulmonology Specialty Clinic - [address] [place] [address] Sebastien Naik MD [address] [place] [address] documented as of this encounter Visit Diagnoses Not on filedocumented in this encounter Care Teams Support Teacher Relationship Specialty Start Date End Date Rosie Aguilera DO [facility] [place] [address] PCP - General FAMILY PRACTICE 05/21/25 documented as of this encounter
--- OUTSIDE RECORDS SUMMARY | 2025-06-02 00:13 | XMS_ITS | Encounter Summary ---
Author Organization [facility] Address [address] [place] [address] Care Team Providers Care Sash Finisher Name Role Phone Qi Gabriel MD Primary Care Pr ovider Rosie Gifford DO Primary Care Provider [phone] Encounter Details Date Type Department Care Team (Late Contact Info) Description 01/19/2023 [facility] Message Enc [facility] Multispecialty [address] [place] [address] [employer], [facility] Provider medication Social History Tobacco Use Types Packs/Day Years Used Date Smoking Tobacco: Never Smokeless Tobacco: Never Comments No Sex and Gender Information Value Date Recorded Sex Assigned at Female 05/21/2025 1:18 PM CDT 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 Gender Identity Female 05/21/2025 1:18 PM CDT [...] Description 06/07/2025 9:00 AM CDT Office Visit [facility] Medical Group Family & Internal Medicine - [address] [address] Rosie Aguilera DO [address] [place] [address] 12/26/2025 10:20 AM CDT Office Visit [facility] Medical Group Pulmonology Specialty Clinic - [address] [place] [address] Sebastien Naik MD [address] [place] [address] documented as of this encounter Visit Diagnoses Not on filedocumented in this encounter Care Teams Sash Finisher Relationship Specialty Start Date End Date Qi Gabriel MD PCP - General FAMILY PRACTICE 01/11/23 03/21/23 Rosie Aguilera DO [address] [place] [address] PCP - General FAMILY PRACTICE 05/21/25 documented as of this encounter
--- OUTSIDE RECORDS SUMMARY | 2025-06-02 00:13 | XMS_ITS | Encounter Summary ---
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 Gender Identity Female 05/21/2025 1:18 PM CDT Sexual Orientation Not on file documented as of this encounter Plan of Treatment Upcoming Encounters Date Type Department Care Team (Late st Contact Info) Description 06/07/2025 9:00 AM CDT Office Visit [facility] Medical Group Family & Internal Medicine [address] [address] Rosie Aguilera DO [address] [address] 12/26/2025 10:20 AM CDT Office Visit [facility] Pulmonology Specialty Clinic - [address] [place] [address] Sebastien Naik MD [address] [place] [address] documented as of this encounter Procedures Procedure Name Priority Date/Time Associated Diagnosis Comments HEMOGLOBIN, GLYCOSYLATED Routine 05/21/2025 documented in this encounter Results * HEMOGLOBIN, GLYCOSYLATED (05/21/2025) HGB A1C 10.7 % 05/21/2025 [facility] Abstract LABORATORY Final Res ult documented in this encounter Visit Diagnoses Not on filedocumented in this encounter Additional Health Concerns Assessment Noted Time PHQ-9 Depression Total Score: 8 05/21/20 23 1:09 PM CDT documented as of this encounter Care Teams Rental Car Ferry Driver Relationship Specialty Start Date End Date Rosie Aguilera DO [address] [place] [address] PCP - General FAMILY PRACTICE 05/21/25 documented as of this encounter
--- OUTSIDE RECORDS SUMMARY | 2025-06-02 00:13 | XMS_ITS | Encounter Summary ---
Author Organization [facility] Address [address] [place] [address] Care Team Providers Care Emt Name Role Phone Qi Gabriel MD Primary Care Pr ovider Rosie Gifford DO Primary Care Provider [phone] Encounter Details Date Type Department Care Team (Late st Contact Info) Description 01/11/2023 MyChart Message Enc [facility] Multispecialty [address] [place] [address] Qi [facility] MD [facility] Social History Tobacco Use Types Packs/Day Years Used Date Smoking Tobacco: Never Smokeless Tobacco: Never Comments No Sex and Gender Information Value Date Recorded Sex Assigned at Female 05/21/2025 1:18 PM CDT 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 Gender Identity Female 05/21/2025 1:18 PM CDT [...] Description 06/07/2025 9:00 AM CDT Office Visit [facility] Medical Group Family & Internal Medicine - [address] [address] Rosie Aguilera DO [address] [address] [place] [address] 12/26/2025 10:20 AM CDT Office Visit [facility] Medical Group Pulmonology Specialty Clinic - [address] [place] [address] Sebastien Naik MD 3 [facility] [address] [place] [address] documented as of this encounter Visit Diagnoses Not on filedocumented in this encounter Care Teams Emt Relationship Specialty Start Date End Date Qi Gabriel MD PCP - General FAMILY PRACTICE 01/11/23 03/21/23 Rosie Aguilera DO [facility] [place] [address] PCP - General FAMILY PRACTICE 05/21/25 documented as of this encounter
--- OUTSIDE RECORDS SUMMARY | 2025-06-02 00:13 | XMS_ITS | Encounter Summary ---
Author Organization [facility] Address [address] [place] [address] Care Team Providers Care Roll Up Machine Operator Name Role Phone Qi Gabriel MD Primary Care Pr ovider Rosie Gifford DO Primary Care Provider [phone] Encounter Details Date Type Department Care Team (Late st Contact Info) Description 01/28/2023 MyChart Message Enc [facility] Multispecialty [address] [place] [address] Qi Gabriel MD Diarrhea/abdominal cramping Social History Tobacco Use Types Packs/Day Years Used Date Smoking Tobacco: Never Smokeless Tobacco: Never Comments No Sex and Gender Information Value Date Recorded Sex Assigned at Female 05/21/2025 1:18 PM CDT 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 No / Unsure 01/25/2023 8:47 AM CDT documented as of this encounter Plan of Treatment Upcoming Encounters Date Type Department Care Team (Late st Contact Info) Description 06/07/2025 9:00 AM CDT Office Visit [facility] Family & Internal Medicine - [address] [phone] Rosie Aguilera DO [address] [address] [place] [address] 12/26/2025 10:20 AM CDT Office Visit [facility] Pul[facility]ology Specialty Clinic - [address] [place] [address] Sebastien Naik MD 3 [facility] [address] [place] [address] documented as of this encounter Visit Diagnoses Not on filedocumented in this encounter Care Teams Roll Up Machine Operator Relationship Specialty Start Date End Date Qi Gabriel MD PCP - General FAMILY PRACTICE 01/11/23 03/21/23 Rosie Aguilera DO [facility] [place] [address] PCP - General FAMILY PRACTICE 05/21/25 documented as of this encounter
--- OUTSIDE RECORDS SUMMARY | 2025-06-02 00:13 | XMS_ITS | Encounter Summary ---
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 [address] [place] [address] 12/26/2025 10:20 AM CDT Office Visit [facility] Pulmonology Specialty Clinic - [address] [place] [address] Sebastien Naik MD 3 [facility] [address] [place] [address] documented as of this encounter Visit Diagnoses Not on filedocumented in this encounter Additional Health Concerns Assessment Noted Time PHQ-9 Depression Total Score: 8 05/21/20 23 1:09 PM CDT documented as of this encounter Care Teams Molding Machine Operator Helper Relationship Specialty Start Date End Date Rosie Aguilera DO [address] [place] [address] PCP - General FAMILY PRACTICE 05/21/25 documented as of this encounter
--- OUTSIDE RECORDS SUMMARY | 2025-06-02 00:13 | XMS_ITS | Encounter Summary ---
Author Organization [facility] Address [address] [place] [address] Care Team Providers Care Consumer Insights Specialist Name Role Phone Qi Gabriel MD Primary Care Pr ovider Rosie Gifford DO Primary Care Provider [phone] Encounter Details Date Type Department Care Team (Late Contact Info) Description 01/15/2023 X2TV Message Enc [facility] Multispecialty [address] [place] [address] [employer], [facility] Provider Lab Results Social History Tobacco Use Types Packs/Day Years Used Date Smoking Tobacco: Never Smokeless Tobacco: Never Comments No Sex and Gender Information Value Date Recorded Sex Assigned at Female 05/21/2025 1:18 PM CDT 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 Gender Identity Female 05/21/2025 1:18 PM CDT [...] Description 06/07/2025 9:00 AM CDT Office Visit [facility] Family & Internal Medicine - [address] [phone] Rosie Aguilera DO [address] [place] [address] 12/26/2025 10:20 AM CDT Office Visit [facility] Pulmonology Specialty Clinic - [address] [place] [address] Sebastien Naik MD [address] [place] [address] documented as of this encounter Visit Diagnoses Not on filedocumented in this encounter Care Teams Consumer Insights Specialist Relationship Specialty Start Date End Date Qi Gabriel MD PCP - General FAMILY PRACTICE 01/11/23 03/21/23 Rosie Aguilera DO [address] [place] [address] PCP - General FAMILY PRACTICE 05/21/25 documented as of this encounter
--- OUTSIDE RECORDS SUMMARY | 2025-06-02 00:13 | XMS_ITS | Encounter Summary ---
Author Organization [facility] Address [address] [place] [address] Care Team Providers Care Lacquer Coater Name Role Phone Qi Gabriel MD Primary Care Pr ovid Rosie Gifford DO Primary Care Provider [phone] Encounter Details Date Type Department Care Team (Late st Contact Info) Description 01/21/2023 MyChart Message Enc [facility] Multispecialty [address] [place] [address] Qi Gabriel MD Update on my prescriptions & health Social History Tobacco Use Types Packs/Day Years Used Date Smoking Tobacco: Never Smokeless Tobacco: Never Comments No Sex and Gender Information Value Date Recorded Sex Assigned at Female 05/21/2025 1:18 PM CDT 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 Gender Identity Female 05/21/2025 1:18 PM [...] Description 06/07/2025 9:00 AM CDT Office Visit [facility] Family & Internal Medicine - [address] [phone] Rosie Aguilera DO [address] [address] [place] [address] 12/26/2025 10:20 AM CDT Office Visit [facility] Pulmonology Specialty Clinic - [address] [place] [address] Sebastien Naik MD 3 [facility] [address] [place] [address] documented as of this encounter Visit Diagnoses Not on filedocumented in this encounter Care Teams Lacquer Coater Relationship Specialty Start Date End Date Qi Gabriel MD PCP - General FAMILY PRACTICE 01/11/23 03/21/23 Rosie Aguilera DO [facility] [place] [address] PCP - General FAMILY PRACTICE 05/21/25 documented as of this encounter
--- OUTSIDE RECORDS SUMMARY | 2025-06-02 00:13 | XMS_ITS | Encounter Summary ---
Author Organization [facility] Address [address] [place] [address] Care Team Providers Care Dieing Out Machine Operator Name Role Phone Qi Gabriel MD Primary Care Pr ovider [facility] Rosie Aguilera DO Primary Care Provider [phone] Encounter Details Date Type Department Care Team (Late st Contact Info) Description 01/18/2023 MyChart Message Enc [facility] Multispecialty [address] [place] [address] Qi Gabriel MD My Blood Sugar Readings 01-11-23/01-17-23 Social History Tobacco Use Types Packs/Day Years Used Date Smoking Tobacco: Never Smokeless Tobacco: Never Comments No Sex and Gender Information Value Date Recorded Sex Assigned at Female 05/21/2025 1:18 PM CDT Legal Sex Female 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 [facility] [address] [place] [address] 12/26/2025 10:20 AM CDT Office Visit [facility] Pulmonology Specialty Clinic - [address] [place] [address] Sebastien Naik MD 3 [facility] [address] [place] [address] documented as of this encounter Visit Diagnoses Not on filedocumented in this encounter Care Teams Dieing Out Machine Operator Relationship Specialty Start Date End Date Qi Gabriel MD PCP - General FAMILY PRACTICE 01/11/23 03/21/23 Rosie Aguilera DO [facility] [place] [address] PCP - General FAMILY PRACTICE 05/21/25 documented as of this encounter
--- OUTSIDE RECORDS SUMMARY | 2025-06-02 00:13 | XMS_ITS | Clinical Summary ---
Author Organization [facility] Address [address] [place] [address] Care Team Providers Care Shoe Lay Out Planner Name Role Phone Unavailable Primary Care Provider Unavailabl e Allergies Active Allergy Reactions Criticality Noted Date Comments Prochlorperazine Unknown Bupropion Mental status changes Low 04/11/2020 Medications norgestimate-et hinyl estradioL (ORTHO TRI-CYCLEN LO) 0.18/0.215/0.25 mg-25 mcg per tablet Active fluticasone propionate (FLONASE) 50 mcg/actuation nasal spray Administer 2 sprays into each nostril daily 16 g 5 9 Active insulin aspart (NovoLOG) 100 unit/mL vial for injection For use with omnipod maximum of 100 units a day 45 mL 3 2 Active metFORMIN XR (GLUCOPHAGE XR) 500 mg 24 hr tablet Take 2 tablets (1,000 mg total) by mouth daily with breakfast 180 tablet 3 2 Active Omnipod Dash 5 Pack Pod cartridge Replace cartridge every 2 days 50 each 3 2 Active FLUoxetine (PROzac) 20 mg capsule Take 3 capsules (60 mg total) by mouth daily 270 capsule 3 2 Active insulin glargine (insulin glargine) 100 unit/mL (3 mL) pen for injection Inject 40 Units under the skin nightly 36 mL 3 2 Active pen needle, diabetic 31 gauge x 5/16 needle Use to inject 4 times daily as directed. 400 each 4 2 Active insulin lispro (HumaLOG, ADMELOG) 100 unit/mL pen for injection Inject 25 Units under the skin 3 (three) times a day before meals Inject 1-4 times per day as directed. 72 mL 4 2 Active lisinopril-hydr oCHLOROthiazide (ZESTORETIC) 20-25 mg per tablet TAKE 1 TABLET BY MOUTH DAILY 90 tablet 1 3 Active buPROPion XL (WELLBUTRIN XL) 150 mg 24 hr tabletIndicatio ns:Moderate episode of recurrent major depressive disorder (HCC) TAKE 1 TABLET(150 MG) BY MOUTH EVERY MORNING 90 tablet 1 3 Active pravastatin (PRAVACHOL) 40 mg tablet TAKE 1 TABLET BY MOUTH DAILY 90 tablet 3 3 Active dulaglutide (TRULICITY) 0.75 mg/0.5 mL pen injector Inject 0.5 mL (0.75 mg total) under the skin every 7 days 2 mL 1 3 Active Active Problems Problem Noted Date Diagnosed Date Moderate episode of recurrent major depressive d isorder 08/12/2020 Assessment & Plan (11/05/2021 9:16 AM PUBLIC POLICY ANALYST): Stable Continue bupropion and fluoxetine Assessment & Plan (01/15/2021 11:20 AM CDT): Improved Continue bupropion 150 and prozac Assessment & Plan (08/12/2020 1:47 PM CDT): Continue Prozac 40 daily Trial Wellbutrin in combination with Prozac - she will discontinue if she develops worsening agitation/irritability like last time. Bilateral carpal tunnel syndrome 04/11/2020 Assessment & Plan (04/11/2020 9:41 AM CDT): Recommended wearing wrist splints at night Referred to PMR for further management Difficulty using continuous positive airway pressure (CPAP) device 05/09/2018 Left lower quadrant abdominal mass 04/28/2018 Assessment & Plan (04/28/2018 10:42 AM CDT): states it is getting harder, reports no constitutional symptoms, I believe this is either due to injection or insect bite at this point I think we can safely follow her admitting have her try to use heat BMI 60.0-69.9, adult ([facility]) 04/08/2018 Assessment & Plan (03/06/2022 12:05 PM CDT): BMI Follow-up includes: nutrition counseling, exercise counseling and education provided. Assessment & Plan (11/05/2021 8:47 AM PUBLIC POLICY ANALYST): BMI Follow-up includes: nutrition counseling, exercise counseling and education provided. Assessment & Plan (04/11/2020 8:47 AM CDT): BMI Follow-up includes: nutrition counseling, exercise counseling and education provided. Assessment & Plan (01/03/2020 4:52 PM CDT): BMI Follow-up includes: nutrition counseling, exercise counseling and education provided. Assessment & Plan (07/15/2018 1:21 PM CDT): Obesity is improving with lifestyle modifications. Discussed the patient's BMI. The BMI is above average; BMI management plan is completed. Diet interventions: moderate (500 kCal/d) deficit diet. Regular aerobic exercise program discussed. 1 mg DST to rule out [place]'s syndrome. Assessment & Plan (05/08/2018 12:00 AM CDT): Discussed the patient's BMI. The BMI is above average; BMI management plan is completed. Diet interventions: moderate (500 kCal/d) deficit diet. Regular aerobic exercise program discussed. Evaluation for [place]'s syndrome once off steroid cream. Surgical weight loss discussed: Not receptive to the idea. Persistent disorder of initiating or maintaining sleep 04/08/2018 Anxiety 03/29/2018 Assessment & Plan (11/05/2021 9:16 AM PUBLIC POLICY ANALYST): Increase fluoxetine to 60mg daily Continue bupropion Encouraged her to start counseling Consider addition of buspar if anxiety remains uncontrolled Assessment & Plan (04/11/2020 9:41 AM CDT): Continue fluoxetine and Xanax p.r.n. Obstructive sleep apnea 03/09/2018 Assessment & Plan (04/11/2020 9:39 AM CDT): Non compliant with CPAP Encouraged patient to use CPAP any time she sleeps or takes a nap Assessment & Plan (01/11/2020 8:05 AM CDT): We will order replacement CPAP machine supplies today Assessment & Plan (01/03/2020 4:51 PM CDT): Stable on current regimen Type 2 diabetes mellitus 04/06/2017 Assessment & Plan (03/06/2022 12:03 PM CDT): A1c today Continue omnipod Will check with insurance which GLP-1 is covered. Assessment & Plan (11/05/2021 9:15 AM PUBLIC POLICY ANALYST): A1c today asked patient to call her insurance company to see if there is a GLP1 that is more affordable than Trulicity was for her as I think this would be very beneficial Continue omnipod, metformin and glipizide Encouraged to schedule eye exam Urine micral/cr today Follow up 3 months Assessment & Plan (01/15/2021 11:20 AM CDT): Repeat A1c today Encouraged medication compliance Foot exam today without neuropathy Follow up 4 months Assessment & Plan (08/12/2020 1:46 PM CDT): Repeat A1c today Urine micral/cr today Continue current regimen Encouraged lifestyle modifications Follow up 3 months Assessment & Plan (04/11/2020 9:44 AM CDT): Blood glucose values appear well controlled on review of Omnipod report Repeat A1c today Continue current regimen Will order Dexcom Follow-up 3 months Assessment & Plan (01/11/2020 8:07 AM CDT): We have discussed various options we have decided on an insulin pump in the form of Omnipod, We will begin with evaluation with the company Assessment & Plan (01/03/2020 4:52 PM CDT): She is now on an insulin pump, due for an A1c we will recheck this today, continue to follow on current regimen Assessment & Plan (07/15/2018 1:22 PM CDT): 42 years old female with morbid obesity, hypertension and hyperlipidemia presents for follow-up of uncontrolled type 2 diabetes mellitus. Hemoglobin A1c has improved from 10.3% to 8.3%. 1. Will increase ozempic to 1 mg weekly. 2. Continue basaglar 25 units at bedtime. 3. Continue metformin ER 500 mg b.i.d. with meals 4. Continue glipizide 10 mg with b.i.d. with meals 5. Consistent carb diet exercise and weight loss discussed. 6. SMBG b.i.d. and send log in 4 weeks 7. Advised to call if having lows. Plan to taper off glipizide. Reminded to bring in blood sugar diary at next visit. Dietary recommendations for ADA diet. Regular aerobic exercise. Discussed ways to avoid symptomatic hypoglycemia. Discussed foot care. Reminded to get yearly retinal exam. Diabetes will be reassessed in 3 months. Potential side effects of Ozempic including but not limited to nausea, vomiting and acute pancreatitis discussed Assessment & Plan (05/08/2018 12:07 AM CDT): 42 years old female with history of morbid obesity, hypertension hyperlipidemia seen for management of uncontrolled type 2 diabetes mellitus. Hemoglobin A1c is 10.1%. Poor dietary compliance. 1. Will increase Ozempic to 0.5 mg weekly. 2. Will increase to 1 mg weekly in 4 weeks if tolerating. 3. Continue Lantus 25 units at bedtime. 4. Continue metformin ER 500 mg BID. 5. Continue glipizide 10 mg t.i.d. with meals. 6. SMBG b.i.d. and send log in 1-2 weeks. 6. Consistent carb diet and exercise as tolerated. 7. Referral for diabetes education/nutrition counseling. 8. RTC in 2 months. Potential side effects of Ozemic including but not limited to nausea, vomiting and acute pancreatitis discussed. No family history of MEN 2. Reports history of thyroid cancer in her sister (not sure of type). Advised to obtain more history from her sister. Will DC Ozemic if family history history is positive for MTC. Assessment & Plan (03/29/2018 9:32 AM CDT): A1c is very poor at 10.1 the patient also has a BMI of 66.1 we have increased her glargine insulin to 25 daily. I am also going to add ozempic I have given her samples she is to do see Endocrinology in April Assessment & Plan (03/09/2018 9:24 AM CDT): Diabetic control has been poor with review of patient's last a1c, I have reviewed and addressed all of the other diabetic benchmarks including the diabetic eye exam, foot exam, renal protection, reaching LDL goal of <100. Will make adjustments to the current regimen. Last a1c of 10.1, diabetic control is very unclear, I will refer her to Endocrinology as she has not been attended to in quite a time Hypertension 04/06/2017 Assessment & Plan (03/06/2022 12:04 PM CDT): BP well controlled Continue lisinopril-hctz 20-25 Continue weight loss Assessment & Plan (11/05/2021 9:13 AM PUBLIC POLICY ANALYST): BP above goal Continue weight loss Continue current regimen follow-up 3 months Assessment & Plan (01/15/2021 11:18 AM CDT): BP elevated but did not take meds this morning Continue current regimen Follow up 4 months Assessment & Plan (08/12/2020 1:45 PM CDT): BP acceptable Continue current regimen Assessment & Plan (04/11/2020 9:39 AM CDT): BP above goal Continue lisinopril-HCTZ 20-25 If still elevated at next visit, will increase lisinopril Assessment & Plan (01/11/2020 8:06 AM CDT): Blood pressure appears to be controlled currently Assessment & Plan (01/03/2020 4:51 PM CDT): Blood pressure appears to be controlled currently Assessment & Plan (03/29/2018 9:32 AM CDT): Blood pressure appears to be controlled currently Assessment & Plan (03/09/2018 9:25 AM CDT): Blood pressure is under good control currently Abnormal cervical Papanicolaou smear 04/06/2017 Hyperlipidemia 01/24/2016 Overview (01/21/2017): Hyperlipidemia, unspecified hyperlipidemia type Assessment & Plan (11/05/2021 9:12 AM PUBLIC POLICY ANALYST): Continue pravastatin Lipid panel today Assessment & Plan (08/12/2020 1:47 PM CDT): Continue pravastatin 40 Assessment & Plan (04/11/2020 9:40 AM CDT): Fasting lipid panel today Continue pravastatin 40 Assessment & Plan (07/15/2018 1:20 PM CDT): Controlled on pravastatin Assessment & Plan (05/08/2018 12:01 AM CDT): Stable on pravastatin. Assessment & Plan (03/09/2018 9:25 AM CDT): Recheck a lipid profile today continues on Pravachol Morbid obesity 01/24/2016 Overview (01/21/2017): Morbid obesity, unspecified obesity type Assessment & Plan (03/29/2018 9:33 AM CDT): She is describing quite a bit of problems with her family situation situational stress she states she is working now Continue encourage her to work on weight loss Resolved Problems Problem Noted Date Diagnosed Date Resolved Date URI, acute 11/29/2019 04/10/2020 Overview (01/11/2020): We discussed today. It sounds like the patient has an upper respiratory infection which is worsening. I recomended increased oral fluid intake. I will institute antibiotics and monitor as clinical course dictates. Preventative health care 07/26/2019 Assessment & Plan (07/26/2019 2:29 PM CDT): Patient here to today for physical exam. The patient was evaluated and all health maintenance objectives were discussed and addressed. Rash 07/26/2019 04/10/2020 Assessment & Plan (12/01/2019 11:17 AM PUBLIC POLICY ANALYST): Patient has a small erythematous rash on the posterior of her left calf, we will try Lotrisone ointment, follow on current regimen Assessment & Plan (07/26/2019 2:45 PM CDT): Evidence of his severe fungal rash under her pannus she will finish up Diflucan, begin nystatin powder Preventative [facility] care 03/09/2018 Assessment & Plan (03/09/2018 8:59 AM CDT): Patient here to today for physical exam. The patient was evaluated and all health maintenance objectives were discussed and addressed. Morbid obesity with BMI of 5 0.0-59.9, adult ([facility]) 11/23/2017 03/06/2022 Overview (03/09/2018): BMI Follow-up includes: nutrition counseling, exercise counseling and education provided. Assessment & Plan (01/15/2021 11:21 AM CDT): BMI Follow-up includes: nutrition counseling, exercise counseling and education provided. Assessment & Plan (08/12/2020 12:03 PM CDT): BMI Follow-up includes: nutrition counseling, exercise counseling and education provided. Assessment & Plan (07/26/2019 2:19 PM CDT): BMI Follow-up includes: nutrition counseling, exercise counseling and education provided. Assessment & Plan (03/09/2018 9:26 AM CDT): We had a very long discussion about her weight, I explained to her that she is very high risk for stroke and heart attack with her very poor control of diabetes and BMI of 66. She understands this at this time Assessment & Plan (11/23/2017 3:45 PM PUBLIC POLICY ANALYST): BMI Follow-up includes: nutrition counseling, exercise counseling and education provided. Sinus complaint 11/23/2017 04/10/2020 Assessment & Plan (11/23/2017 4:09 PM PUBLIC POLICY ANALYST): Start antibiotic. Irrigate sinuses with saline. If no improvement or symptoms progress contact office. Laryngitis 07/01/2017 04/10/2020 Assessment & Plan (07/01/2017 11:04 PM CDT): Unremarkable oropharyngeal exam. Try Medrol dose Pack. Strep throat 07/01/2017 04/10/2020 Assessment & Plan (07/01/2017 11:09 PM CDT): Strep swab NEGATIVE. Likely viral pharyngitis. Continue conservative measures. Hypercholesterolemia 04/06/2017 020 Assessment & Plan (03/29/2018 9:32 AM CDT): We reviewed her lipid abnormalities her triglycerides are very high likely due to her [id number] diabetes otherwise LDL is excellent Acute non-recurrent maxillary sinusitis 07/13/2016 04/10/2020 Overview (01/21/2017): Acute non-recurrent maxillary sinusitis Assessment & Plan (07/01/2017 11:04 PM CDT): Start Augmentin, Medrol dose pack. Essential hypertension 01/24/201604/10 Overview (01/21/2017): Essential hypertension, hypertension with unspecified goal Assessment & Plan (07/15/2018 1:21 PM CDT): Hypertension is stable on current regimen Dietary sodium restriction. Weight loss. Regular aerobic exercise. Assessment & Plan (05/08/2018 12:01 AM CDT): Well controlled on lisinopril-HCTZ. Immunizations Immunization Administration Dates Next Due Influenza, Quadrivalent, Spl it, Intramuscular 09/28/2016,07/18/2015 Influenza, Quadrivalent, Spl it, Preservative Free, Intramuscular 07/26/2019,07/21/2018 Influenza, Unspecified 03/06/2022(Deferr ed: Patient Refused),10/18/2016 Tdap 07/26/2019 Surgical History Surgery Date Site/Laterality Comments TONSILLECTOMY SINUS SURGERY Medical History Medical History Date Comments Type 2 diabetes mellitus Diabete s type 2; Comments: [facility] 01/24/2016 - Hypertension Hypertension Hyperlipidemia Hyperlipidemia; Comments: [facility] 01/24/2016 - Morbid obesity (HCC) Anxiety Depression Neuropathy in diabetes Sleep apnea Family History Medical History Relation Name Comments Diabetes Father's Brother Cancer Maternal Grandfather Colon c ancer Diabetes Maternal Grandfather Diabetes Maternal Grandmother Cancer Mother Kidney cancer s tatus post nephrectomy Coronary artery disease Mother Katrina nary artery disease; Diabetes Mother ESKD Requiring Dialysis Mother Diabetes Mother's Brother Diabetes Mother's Sister Cancer Sister Thyroid cancer Relation Name Status Comments Father's Brother Maternal Grandfather Maternal Grandmother Mother Alive Mother's Brother Mother's Sister Sister Alive Social History Tobacco Use Types Packs/Day Years Used Date Smoking Tobacco: Never Smokeless Tobacco: Never Alcohol Use Standard Drinks/Week Comments Not Currently 0 (1 standard drink = 0.6 oz pur e alcohol) PHQ-2 Answer Date Recorded PHQ-2 Total Score 0 03/06/2022 Comments No Sex and Gender Information Value Date Recorded Sex Assigned at Not on file Legal Sex Female 2:20 AM PUBLIC POLICY ANALYST Gender Identity Female 10/21/2019 10:23 PM PUBLIC POLICY ANALYST Sexual Orientation Not on file 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
--- OUTSIDE RECORDS SUMMARY | 2025-06-02 00:13 | XMS_ITS | Encounter Summary ---
Author Organization [facility] Address [facility] [place] [address] Care Team Providers Care Candy Department Manager Name Role Phone Rosie Aguilera DO Primary Care Provider [phone] Encounter Details Date Type Department Care Team (Late st Contact Info) Description 11/04/2023 MyChart Message Enc [facility] Care - [address] [address] [address] [place] [address] Sarthak Munguia MD [address] [place] [address] [address] [place] [address] Humalog Social History Tobacco Use Types Packs/Day Years Used Date Smoking Tobacco: Never Smokeless Tobacco: Never Comments:Counseled by Dr Charisse vu. 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 ASSISTANT Gender Identity Female 05/21/2025 1:18 PM CDT Sexual Orientation Not on file documented as of this encounter Plan of Treatment Upcoming Encounters Date Type Department Care Team (Late st Contact Info) Description 06/07/2025 9:00 AM CDT Office Visit [facility] Family & Internal Medicine - [address] [phone] Rosie Aguilera DO [address] [address] 12/26/2025 10:20 AM CDT Office Visit [facility]ty Clinic - [address] [place] [address] Sebastien Naik MD [address] [place] [address] [place] [address] documented as of this encounter Visit Diagnoses Not on filedocumented in this encounter Additional Health Concerns Assessment Noted Time PHQ-9 Depression Total Score: 8 05/21/20 23 1:09 PM CDT documented as of this encounter Care Teams Candy Department Manager Relationship Specialty Start Date End Date Rosie Aguilera DO [address] [place] [address] PCP - General FAMILY PRACTICE 05/21/25 documented as of this encounter
--- OUTSIDE RECORDS SUMMARY | 2025-06-02 00:13 | XMS_ITS | Encounter Summary ---
Author Organization [facility] Address [address] [place] [address] Care Team Providers Care Technical Communicator Name Role Phone Qi Gabriel MD Primary Care Pr ovider Rosie Gifford DO Primary Care Provider [phone] Encounter Details Date Type Department Care Team (Late st Contact Info) Description 01/11/2023 MyChart Message Enc [facility] Multispecialty [address] [place] [address] Qi Gabriel MD My Graphic Engineer's Number Social History Tobacco Use Types Packs/Day Years Used Date Smoking Tobacco: Never Smokeless Tobacco: Never Comments No Sex and Gender Information Value Date Recorded Sex Assigned at Female 05/21/2025 1:18 PM CDT Legal Sex Female 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 Gender Identity Female 05/21/2025 1:18 PM CDT [...] Description 06/07/2025 9:00 AM CDT Office Visit [facility] Family & Internal Medicine - [address] [phone] Rosie Aguilera DO [address] [address] [place] [address] 12/26/2025 10:20 AM CDT Office Visit [facility] Medical [facility] Pul[facility]ty [facility] - [address] [place] [address] Sebastien Naik MD 3 [facility] [address] [place] [address] documented as of this encounter Visit Diagnoses Not on filedocumented in this encounter Care Teams Technical Communicator Relationship Specialty Start Date End Date Qi Gabriel MD PCP - General FAMILY PRACTICE 01/11/23 03/21/23 Rosie Aguilera DO [facility] [place] [place] [address] PCP - General FAMILY PRACTICE 05/21/25 documented as of this encounter
--- OUTSIDE RECORDS SUMMARY | 2025-06-02 00:13 | XMS_ITS | Encounter Summary ---
Author Organization [facility] Address [address] [place] [address] Care Team Providers Care Ice Hockey Coach Name Role Phone Rosie Aguilera DO Primary Care Provider [phone] Encounter Details Date Type Department Care Team (Latest Contact Info) Description 05/25/2025 Scan [facility] INFO [facility] Scanned, Doc Med Group Social History Tobacco Use Types Packs/Day Years [...] PM CDT Legal Sex Female 8:24 AM PUBLICATION DIRECTOR Gender Identity Female 05/21/2025 1:18 PM CDT Sexual Orientation Not on file documented as of this encounter Plan of Treatment Upcoming Encounters Date Type Department Care Team (Late st Contact Info) Description 06/07/2025 9:00 AM CDT Office Visit [facility] Medical Group Family & Internal Medicine - [address] [address] Rosie Aguilera DO [address] [address] 12/26/2025 10:20 AM CDT Office Visit [facility] Medical [facility] Pul[facility]ty Clinic - [address] [place] [address] Sebastien Naik MD [address] [address] documented as of this encounter Visit Diagnoses Not on filedocumented in this encounter Additional Health Concerns Assessment Noted Time PHQ-9 Depression Total Score: 8 05/21/20 23 1:09 PM CDT documented as of this encounter Care Teams Ice Hockey Coach Relationship Specialty Start Date End Date Rosie Aguilera DO [facility] [place] [address] PCP - General FAMILY PRACTICE 05/21/25 documented as of this encounter
--- OUTSIDE RECORDS SUMMARY | 2025-06-02 00:13 | XMS_ITS | Encounter Summary ---
Author Organization [facility] Address [address] [place] [address] Care Team Providers Care Consumer Credit Counselor Name Role Phone Rosie Aguilera DO Primary Care Provider [phone] Reason for Visit * Reason Onset Date Comments Advice 05/31/2025 Nurse Triage - A fter Hours ([id number]) Encounter Details Date Type Department Care Team (Late st Contact [facility]) Description 05/31/2025 Telephone [facility] Medical Group Family & Internal Medicine [address] [phone] Rosie Aguilera DO [address] [address] Advice (Nurse Triage - After Hours ([id number])/) Social History Tobacco Use Types Packs/Day Years [...] PM CDT Legal Sex Female 8:[address]GE Gender Identity Female 05/21/2025 1:18 PM CDT Sexual Orientation Not on file documented as of this encounter Progress Notes * Thanh Donald - 05/31/2025 6:44 AM CDT Nurse Triage - After Hours ([id number]) Comments Pt Have A. Really Bad Abscess On Her Inner Thigh, and She Is On Antibiotics Until Wednesday, and It Hurts Really Bad and Gooey Assessment Notes pt states she has an abcess in her pubic area. pt is requesting an appointment for tomorrow. rn advised pt to call in the morning for an appointment. pt verbalized understanding. suzanna,rn information only documented in this encounter Plan of Treatment Upcoming Encounters Date Type Department Care Team (Late st Contact Info) Description 06/07/2025 9:00 AM CDT Office Visit [facility] Medical Group Family & Internal Medicine - [address] [phone] Rosie Aguilera DO 3 [facility]. [facility] [address] [place] [address] 12/26/2025 10:20 AM CDT Office Visit [facility] Medical [facility] Pulmonology Specialty Clinic - [address] [place] [address] Sebastien Naik MD 3 [facility] [address] [place] [address] documented as of this encounter Visit Diagnoses Not on filedocumented in this encounter Additional Health Concerns Assessment Noted Time PHQ-9 Depression Total Score: 8 05/21/20 23 1:09 PM CDT documented as of this encounter Care Teams Consumer Credit Counselor Relationship Specialty Start Date End Date Rosie Aguilera DO [address] [place] [address] PCP - General FAMILY PRACTICE 05/21/25 documented as of this encounter
--- OUTSIDE RECORDS SUMMARY | 2025-06-02 00:13 | XMS_ITS | Encounter Summary ---
Author Organization [facility] Address [address] [place] [address] Care Team Providers Care Coil Tester Name Role Phone Rosie Aguilera DO Primary Care Provider [phone] Reason for Visit * Reason Comments Abscess Pt is here today for a painful abscess on upper right inner thigh. Painful to walk. Encounter Details Date Type Department Care Team (Late st Contact Info) Description 06/01/2025 8:20 AM CDT Office Visit [facility] Medical Group Family & Internal Medicine [address] [phone] Rosie Aguilera DO [address] [place] [phone] Abscess (Pt is here today for a painful abscess on upper right inner thigh. Painful to walk. 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 Encounter Date: 06/01/2025 Reason for Visit: Abscess (Pt is here today for a painful abscess on upper right inner thigh. Painful to walk. ) History of Present Illness: Nelly Russ is a 49-year-old female here for painful abscess. Abscess first noticed approximately 3 days ago. Patient states abscess is on her upper right thigh however on exam it is under her pannus. Patient states her popped it open and it drained purulent material. She had some leftover antibiotics which she started. She stated that antibiotics were Bactrim. Patient statesit is no longer draining purulent material however it is still exquisitely tender. It is not bleeding. Patient denies any fevers, chills, body aches. ROS: See HPI. Medications: Medications Taking[1] Allergies: Review of patient's allergies indicates: Allergen Reactions Seasonal Runny Nose Medical History: Past Medical History[2] Surgical History: Past Surgical History[3] Social History: Social History[4] Family History: Family History[5] PE: Vitals: 06/01/25 0808 Patient Position: Sitting BP Location: Right wrist Cuff size: Adult Small BP: 138/62 Pulse: (!) 113 Body mass index is 66.45 kg/m??. PHQ-9: 05/21/2023 1:09 PM 05/21/2025 1:19 PM PHQ2/PHQ 9 DEPRESSION SCREEN QUESTIONAIRE Little interest or pleasure in doing things Several days Several days Feeling down, depressed, or hopeless Several days Not at all Patient Health Questionnaire-2 Score 2 1 Trouble falling or staying asleep, or sleeping too much Almost all Feeling tired or having little energy Over half Poor appetite or overeating Not at all Feeling bad about yourself - or that you are a failure or have let yourself or your family down Several days Trouble concentrating on things, such as reading the newspaper or watching television Not at all Moving or speaking so slowly that other people could have noticed? Or the opposite - being so fidgety or restless that you have been moving around a lot more than usual. Not at all Thoughts that you would be better off or hurting yourself in some way Not at all Patient Health Questionnaire-9 Score 8 How difficult have these problems made it for you to do your work, take care of things at home, or get along with other people? Somewhat difficult Physical Exam Constitutional: General: She is not in acute distress. Appearance: Normal appearance. She is not ill-appearing, toxic-appearing or diaphoretic. HENT: Head: Normocephalic and atraumatic. Pulmonary: Effort: Pulmonary effort is normal. No respiratory distress. Skin: Comments: Under right pannus there is a 1.5 cm abscess that has drained. Small amount of purulent material expressed. Slight surrounding erythema. Patient also had surrounding intertrigo. Very tenderto palpation. Neurological: Mental Status: She is alert. Psychiatric: Mood and Affect: Mood normal. Behavior: Behavior normal. Thought Content: Thought content normal. Judgment: Judgment normal. Diagnoses/Impression: 1. Abscess sulfamethoxazole-trimethoprim (BACTRIM DS) 800-160 MG tablet traMADol (ULTRAM) 50 MG tablet 2. Intertrigo nystatin (MYCOSTATIN) powder Recommendations and Plan: 1. Abscess Start Bactrim. Short course of tramadol prescribed for exquisite pain that is refractory to ibuprofen. Keep area clean and dry. Follow-up in 1 week. - sulfamethoxazole-trimethoprim (BACTRIM DS) 800-160 MG tablet; Take 2 tablets by mouth 2 (two) times daily for 10 days. Dispense: 40 tablet; Refill: 0 - traMADol (ULTRAM) 50 MG tablet; Take 1 tablet (50 mg total) by mouth every 6 (six) hours as needed for Pain. Indications: Acute Pain < 7 Day Supply Dispense: 15 tablet; Refill: 0 2. Intertrigo Keep area clean, cool, and dry. Start topical nystatin powder. Follow-up in 1 week. - nystatin (MYCOSTATIN) powder; Apply topically 2 (two) times daily. Dispense: 30 g; Refill: 0 Rosie Aguilera DO 06/01/2025 [1] Outpatient Medications Marked as Taking for the 06/01/25 encounter (Office Visit) with Rosie Aguilera DO Medication Sig Dispense Refill amLODIPine (NORVASC) 10 MG tablet Take 1 tablet (10 mg total) by mouth daily. atorvastatin (LIPITOR) 40 MG tablet Take 1 tablet (40 mg total) by mouth nightly at bedtime. 30 tablet 3 buPROPion XL (WELLBUTRIN XL) 150 MG 24 hr tablet TAKE 1 TABLET(150 MG) BY MOUTH EVERY MORNING 90 tablet 0 Drospirenone (SLYND) 4 MG Tab Take 4 mg by mouth daily. empagliflozin (JARDIANCE) 10 MG tablet Take 1 tablet (10 mg total) by mouth daily. 30 tablet 2 estradiol (VIVELLE-DOT) 0.05 MG/24HR patch Place 1 patch (0.05 mg total) onto the skin twice a week. insulin glargine (LANTUS SOLOSTAR) 100 UNIT/ML injection (PEN) Inject 28 Units into the skin nightly at bedtime. (Patient taking differently: Inject 47 Units into the skin nightly at bedtime.) 15 mL 1 insulin lispro, 1 Unit Dial, (HUMALOG) 100 UNIT/ML injection (PEN) Inject 6 Units into the skin 3 (three) times daily before meals. 9 mL 5 lisinopril-hydroCHLOROthiazide (ZESTORETIC) 20-25 MG tablet take 1 tablet by mouth daily 90 tablet 0 nystatin (MYCOSTATIN) powder Apply topically 2 (two) times daily. 30 g 0 pravastatin (PRAVACHOL) 40 MG tablet TAKE 1 TABLET(40 MG) BY MOUTH EVERY NIGHT AT BEDTIME 90 tablet1 sulfamethoxazole-trimethoprim (BACTRIM DS) 800-160 MG tablet Take 2 tablets by mouth 2 (two) times daily for 10 days. 40 tablet 0 traMADol (ULTRAM) 50 MG tablet Take 1 tablet (50 mg total) by mouth every 6 (six) hours as needed for Pain. Indications: Acute Pain < 7 Day Supply 15 tablet 0 venlafaxine XR (EFFEXOR-XR) 75 MG 24 hr capsule Take 1 capsule (75 mg total) by mouth daily. [2] Past Medical History: Diagnosis Date Anxiety Arthritis I don't know Perimenopause Depression Diabetes mellitus (CMS/HCC HHS/HCC) Hypertension [3] History reviewed. No pertinent surgical history. [4] Social History Tobacco Use Smoking status: Never Smokeless tobacco: Never Tobacco comments: Counseled by Dr Munguia. Vaping Use Vaping status: Never Used Substance Use Topics Alcohol use: Never Drug use: Never [5] Family History Problem Relation Name Age of Onset Diabetes Mother Flakita Lange Hypertension Mother Flakita Lange Hyperlipidemia Mother Flakita Lange Other (renal cancer) Mother Flakita Lange Arthritis Mother Flakita Lange Cancer Mother Flakita Lange Kidney Cancer, Skin Cancer, Lung Cancer COPD Mother Flakita Lange Kidney Disease Mother Flakita Lange Was on dialysis Early Mother Flakita Lange at 72 in 2019 Thyroid cancer Sister Diabetes Maternal Grandmother Violet Toybes Hypertension Maternal Grandmother Violet Toybes Heart Disease Maternal Grandmother Violet Toybes Hypertension Father Manfred Lange Cancer Father Manfred Lange Lung Cancer Diabetes Maternal Grandfather Messi Toybes Heart Attack Maternal Grandfather Messi Toybes Colon Cancer Maternal Grandfather Messi Toybes Cancer Maternal Grandfather Messi Toybes Colon Cancer Hypertension Maternal Grandfather Messi Toybes Heart Disease Maternal Grandfather Messi Toybes Heart Attack Paternal Grandfather Musa Lange 74 Stroke Paternal Grandfather Musa Lange Heart Disease Paternal Grandfather Musa Lange Breast Cancer Maternal cousin Sonia Brasgoran-Marisolnaomycheo Cancer Paternal Grandmother Joanie (Ronakjefferson) Nazario Lukemia Cancer Sister [place] Thyroid Cancer Depression Sister [place] Depression Brother Everette Lange Diabetes Paternal Uncle Andrew Lange Diabetes Paternal Uncle Martinez Lange Diabetes Paternal Uncle Dg Lange Diabetes Paternal Aunt Tompkins (Sherman) Yeny documented in this encounter Plan of Treatment Upcoming Encounters Date Type Department Care Team (Late st Contact Info) Description 06/07/2025 9:00 AM CDT Office Visit [facility] Medical Group Family & Internal Medicine - [address] [phone] Rosie Aguilera DO 3 [facility]. [email or web address] [address] [place] [address] 12/26/2025 10:20 AM CDT Office Visit [facility] Medical Group Pulmonology Specialty Clinic - [address] [place] [address] Sebastien Naik MD 3 [facility] [address] [place] [address] documented as of this encounter Visit Diagnoses Diagnosis Abscess- Primary Cellulitis and abscess of unspecified site Intertrigo Other specified erythematous condition documented in this encounter Additional Health Concerns Assessment Noted Time PHQ-9 Depression Total Score: 8 05/21/20 23 1:09 PM CDT documented as of this encounter Care Teams Coil Tester Relationship Specialty Start Date End Date Rosie Aguilera DO [address] [place] [address] PCP - General FAMILY PRACTICE 05/21/25 documented as of this encounter
--- OUTSIDE RECORDS SUMMARY | 2025-06-02 00:13 | XMS_ITS | Encounter Summary ---
Author Organization [facility] Address [facility] [place] [address] Care Team Providers Care Traveling Auditor Name Role Phone Rosie Aguilrea DO Primary Care Provider [phone] Encounter Details Date Type Department Care Team (Latest Contact Info) Description 04/14/2023 MyChart Message Enc [facility] Multispecialty Care - [address] [address] [address] [place] [address] [place] [address] [place] [address] [address] [place] [address] Ozempic 0.25-0.5 Social History Tobacco Use Types Packs/Day Years Used Date Smoking Tobacco: Never Smokeless Tobacco: Never Comments No Sex and Gender Information Value Date Recorded Sex Assigned at Female 05/21/2025 1:18 PM CDT 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 Gender Identity Female 05/21/2025 1:18 PM CDT Sexual Orientation Not on file documented as of this encounter Plan of Treatment Upcoming Encounters Date Type Department Care Team (Late st Contact Info) Description 06/07/2025 9:00 AM CDT Office Visit [facility] Medical Group Family & Internal Medicine - [address] [phone] Rosie Aguilera DO [address] [address] 12/26/2025 10:20 AM CDT Office Visit [facility] Medical Group Pulmonology Specialty Clinic - [address] [place] [address] Sebastien Naik MD [address] [place] [address] documented as of this encounter Visit Diagnoses Not on filedocumented in this encounter Care Teams Traveling Auditor Relationship Specialty Start Date End Date Rosie Aguilera DO [address] [place] [address] PCP - General FAMILY PRACTICE 05/21/25 documented as of this encounter
--- OUTSIDE RECORDS SUMMARY | 2025-06-02 00:13 | XMS_ITS | Encounter Summary ---
Author Organization [facility] Address [address] [place] [address] Care Team Providers Care Capital Campaign Fundraiser Name Role Phone Qi Gabriel MD Primary Care Pr ovider [facility] Rosie Aguilera DO Primary Care Provider [phone] Encounter Details Date Type Department Care Team (Late st Contact Info) Description 01/28/2023 MyChart Message Enc [facility] Multispecialty [address] [place] [address] Qi Gabriel MD [facility] Social History Tobacco Use Types Packs/Day Years Used Date Smoking Tobacco: Never Smokeless Tobacco: Never Comments No Sex and Gender Information Value Date Recorded Sex Assigned at Female 05/21/2025 1:18 PM CDT 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 Family & Internal Medicine - [address] [phone] Rosie Aguilera DO [address] [address] 12/26/2025 10:20 AM CDT Office Visit [facility] Medical Group Pulmonology Specialty Clinic - [address] [place] [address] Sebastien Niak MD 3 [facility] [address] [place] [address] documented as of this encounter Visit Diagnoses Not on filedocumented in this encounter Care Teams Capital Campaign Fundraiser Relationship Specialty Start Date End Date Qi Gabriel MD PCP - General FAMILY PRACTICE 01/11/23 03/21/23 Rosie Aguilera DO [address] [place] [address] PCP - General FAMILY PRACTICE 05/21/25 documented as of this encounter
--- OUTSIDE RECORDS SUMMARY | 2025-06-02 00:13 | XMS_ITS | Encounter Summary ---
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 Internal [address] [phone] Rosie Aguilera DO 3 [facility]. [facility] [address] [place] [address] 12/26/2025 10:20 AM CDT Office Visit [facility] Medical Group Pulmonology Specialty Clinic - [address] [place] [address] Sebastien Naik MD 3 [facility] [address] [place] [address] documented as of this encounter Visit Diagnoses Not on filedocumented in this encounter Additional Health Concerns Assessment Noted Time PHQ-9 Depression Total Score: 8 05/21/20 23 1:09 PM CDT documented as of this encounter Care Teams Bank Sales And Service Manager Relationship Specialty Start Date End Date Rosie Aguilera DO [address] [place] [address] PCP - General FAMILY PRACTICE 05/21/25 documented as of this encounter
--- NOTE | 2025-06-02 00:29 | ED.SKABFB ---
HPI - Skin/Abscess/Foreign Bdy General Chief complaint: Skin/Abscess/Foreign Body <Rosa Benson PA-C - Last Filed: 06/03/25 14:15> Stated complaint: abcess <WOLFGANG Nayak Last Filed: 06/03/25 14:15> Time Seen by Provider: 06/01/25 23:42 <WOLFGANG Nayak Last Filed: 06/03/25 14:15> Source: patient <Rosa WOLFGANG Renee Last Filed: 06/03/25 14:15> Mode of arrival: ambulatory <WOLFGANG Nayak Last Filed: 06/03/25 14:15> Limitations: no limitations <Rosa Benson PA-C - Last Filed: 06/03/25 14:15> History of Present Illness HPI narrative: This is a 49-year-old female that presents to the emergency department for swelling and pain to the right pubic area. Reports redness, swelling, pain worsening over the last 3 days. Denies fevers. <Rosa Benson PA-C - Last Filed: 06/03/25 14:15> Related Data Allergies/Adverse reactions: Allergies Allergy/AdvReac Type Severity Reaction Status Date / Time No Known Allergies Allergy Verified 06/02/25 02:15 <Rosa Benson PA-C - Last Filed: 06/03/25 14:15> Review of Systems Review of Systems: All systems reviewed & are unremarkable except as noted in HPI and below <Rosa Benson PA-C - Last Filed: 06/03/25 14:15> [facility] Past Medical History Medical History: Medical History (Updated 06/03/25 @ 00:00 by Background [place]) History of diabetes mellitus <WOLFGANG Nayak Last Filed: 06/03/25 14:15> Exam Narrative: GENERAL: Well-appearing, obese, and in no acute distress. HEAD: Normocephalic, atraumatic. EYES: EOMI. CHEST: Clear to auscultation. No respiratory distress. No wheezes rales or rhonchi HEART: Regular rate and rhythm. No murmur heard. Normal peripheral pulses. ABDOMEN: Soft, nontender, nondistended, normal active bowel sounds. Pubic area with severe edema, erythema draining brown liquid when palpated EXTREMITIES: Normal range of motion. No edema. SKIN: Warm, dry, no rash. NEURO: No focal deficits. Alert and oriented x3. PSYCH: Normal mood and affect <Rosa Benson PA-C - Last Filed: 06/03/25 14:15> Course LANGUAGE THERAPIST/PA Physician Supervision This visit was performed by both a physician and an APC. I performed all aspects of the MDM as documented. <Tom Mabry MD - Last Filed: 06/02/25 07:13> Consultations Consultation #1: Spoke with Dr. Khalil, [place] surgeon, about patient and workup who recommends transfer to the ER <Rosa Benson PA-C - Last Filed: 06/03/25 14:15> Date: 06/02/25 <Rosa Benson PA-C - Last Filed: 06/03/25 14:15> Consultation #2: Dr. Barba accepts patient as transfer to [place] [facility] <Rosa Benson PA-C - Last Filed: 06/03/25 14:15> Date: 06/02/25 <Rosa Benson PA-C - Last Filed: 06/03/25 14:15> Vital Signs Vital signs: Vital Signs Pulse Rate 98 06/02/25 01:08 Respiratory Rate 29 H 06/02/25 01:08 Pulse Oximetry 97 06/02/25 01:08 Temperature 98 F 06/02/25 01:11 Pulse Rate 90 06/02/25 04:00 Respiratory Rate 36 H 06/02/25 04:00 Blood Pressure 122/60 06/02/25 03:31 Pulse Oximetry 98 06/02/25 03:45 Oxygen Delivery Room Air 06/02/25 01:11 <Rosa Benson PA-C - Last Filed: 06/03/25 14:15> Vital Signs Pulse Rate 98 06/02/25 01:08 Respiratory Rate 29 H 06/02/25 01:08 Pulse Oximetry 97 06/02/25 01:08 Temperature 98 F 06/02/25 01:11 Pulse Rate 90 06/02/25 04:00 Respiratory Rate 36 H 06/02/25 04:00 Blood Pressure 122/60 06/02/25 03:31 Pulse Oximetry 98 06/02/25 03:45 Oxygen Delivery Room Air 06/02/25 01:11 <Tom Mabry MD - Last Filed: 06/02/25 07:13> MDM - Skin/Abscess/Foreign Bdy MDM Narrative Medical decision making narrative: Patient presents the emergency department for redness, swelling, abnormal drainage from the right groin. Patient is afebrile and nontoxic appearing. Her vitals are stable. CBC with leukocytosis to 28.8. Metabolic panel with evidence of dehydration, patient hydrated with IV fluids. Lactic acid is elevated at 2.3, CRP greater than 9. CT abdomen and pelvis concerning for necrotizing fasciitis. Blood cultures and wound cultures obtained, patient started on IV antibiotics. Spoke with Dr. Khalil, [place] surgeon, about patient and workup who recommends transfer to the ER. Dr. Barba accepts patient as transfer to [place] [facility] <Rosa Benson PA-C - Last Filed: 06/03/25 14:15> Differential Diagnosis Differential diagnosis: Likely abscess of skin or subcutaneous tissue and other (Necrotizing fasciitis) <Rosa Benson PA-C - Last Filed: 06/03/25 14:15> Lab Data Result diagrams: 06/02/25 00:43 06/02/25 02:29 <Rosa Benson PA-C - Last Filed: 06/03/25 14:15> Labs: Lab Results 06/02/25 06/02/25 06/02/25 Range/Units 00:43 01:15 02:29 WBC 28.8 H (4.5-10.0) K/mm3 RBC 4.62 (4.2-5.4) M/mm3 Hgb 13.2 (12.0-15.0) g/dL Hct 39.4 (37.0-47.0) % MCV 85.3 (80-100) fl MCH 28.6 (26-34) pg MCHC 33.5 (32-36) g/dl RDW 13.4 (11.5-14.5) % Plt Count 334 (150-375) k/mm3 MPV 10.5 H (7.4-10.4) fl Immature Gran % (Auto) Not Reportable Neut % (Auto) Not Reportable Lymph % (Auto) Not Reportable Piatt % (Auto) Not Reportable Eos % (Auto) Not Reportable Baso % (Auto) Not Reportable Lymph # (Auto) Not Reportable Piatt # (Auto) Not Reportable Eos # (Auto) Not Reportable Baso # (Auto) Not Reportable Abs Immat Gran (auto) Not Reportable Absolute Neuts (auto) Not Reportable Absolute Nucleated RBC Not Reportable Total Counted 100 Neutrophils % (Manual) 88 H (46-73) % Band Neutrophils % 3 (0-6) % Lymphocytes % (Manual) 5.0 L (18-44) % Monocytes % (Manual) 4 (3-9) % Nucleated RBC % Not Reportable Abs Neuts (Manual) 26.20 H (1.3-6.7) K/mm3 Abs Lymphs (Manual) 1.44 (1.1-4.5) K/mm3 Abs Monocytes (Manual) 1.15 H (0.1-0.90) K/mm3 Platelet Estimate Increased (Adequate) Anisocytosis 1+ Leslie Cells 1+ Schistocytes None seen ESR 17 (0-20) mm/hr PT 14.9 H (11.1-14.7) Seconds INR 1.2 APTT 30.4 (22.3-36.8) Seconds Sodium 126 L (137-145) mmol/L Potassium 4.3 (3.4-5.0) mmol/L Chloride 95 L (98-107) mmol/L Carbon Dioxide 13 L (22-30) mmol/L Anion Gap 18 H (4-12) mmol/L BUN 30 H (7-17) mg/dL Creatinine 1.47 H (0.7-1.0) mg/dL Estim Creat Clear Calc 62 ml/min Estimated GFR 38 L (59 - ) Glucose 455 H (65-110) mg/dL Lactic Acid 2.3 H (0.7-2.0) mmol/L Calcium 9.0 (8.4-10.2) mg/dL Total Bilirubin 0.5 (0.2-1.3) mg/dL AST 25 (14-36) U/L ALT 23 (6-35) U/L Alkaline Phosphatase 136 H (38-126) U/L C-Reactive Protein > 45.0 H (<1.0) mg/dL Total Protein 6.5 (6.3-8.2) g/dL Albumin 3.3 L (3.5-5.1) g/dL <Rosa Benson PA-C - Last Filed: 06/03/25 14:15> Lab Results 06/02/25 06/02/25 06/02/25 Range/Units 00:43 01:15 02:29 WBC 28.8 H (4.5-10.0) K/mm3 RBC 4.62 (4.2-5.4) M/mm3 Hgb 13.2 (12.0-15.0) g/dL Hct 39.4 (37.0-47.0) % MCV 85.3 (80-100) fl MCH 28.6 (26-34) pg MCHC 33.5 (32-36) g/dl RDW 13.4 (11.5-14.5) % Plt Count 334 (150-375) k/mm3 MPV 10.5 H (7.4-10.4) fl Immature Gran % (Auto) Not Reportable Neut % (Auto) Not Reportable Lymph % (Auto) Not Reportable Piatt % (Auto) Not Reportable Eos % (Auto) Not Reportable Baso % (Auto) Not Reportable Lymph # (Auto) Not Reportable Piatt # (Auto) Not Reportable Eos # (Auto) Not Reportable Baso # (Auto) Not Reportable Abs Immat Gran (auto) Not Reportable Absolute Neuts (auto) Not Reportable Absolute Nucleated RBC Not Reportable Total Counted 100 Neutrophils % (Manual) 88 H (46-73) % Band Neutrophils % 3 (0-6) % Lymphocytes % (Manual) 5.0 L (18-44) % Monocytes % (Manual) 4 (3-9) % Nucleated RBC % Not Reportable Abs Neuts (Manual) 26.20 H (1.3-6.7) K/mm3 Abs Lymphs (Manual) 1.44 (1.1-4.5) K/mm3 Abs Monocytes (Manual) 1.15 H (0.1-0.90) K/mm3 Platelet Estimate Increased (Adequate) Anisocytosis 1+ [place] Cells 1+ Schistocytes None seen ESR 17 (0-20) mm/hr PT 14.9 H (11.1-14.7) Seconds INR 1.2 APTT 30.4 (22.3-36.8) Seconds Sodium 126 L (137-145) mmol/L Potassium 4.3 (3.4-5.0) mmol/L Chloride 95 L (98-107) mmol/L Carbon Dioxide 13 L (22-30) mmol/L Anion Gap 18 H (4-12) mmol/L BUN 30 H (7-17) mg/dL Creatinine 1.47 H (0.7-1.0) mg/dL Estim Creat Clear Calc 62 ml/min Estimated GFR 38 L (59 - ) Glucose 455 H (65-110) mg/dL Lactic Acid 2.3 H (0.7-2.0) mmol/L Calcium 9.0 (8.4-10.2) mg/dL Total Bilirubin 0.5 (0.2-1.3) mg/dL AST 25 (14-36) U/L ALT 23 (6-35) U/L Alkaline Phosphatase 136 H (38-126) U/L C-Reactive Protein > 45.0 H (<1.0) mg/dL Total Protein 6.5 (6.3-8.2) g/dL Albumin 3.3 L (3.5-5.1) g/dL <Tom Mabry MD - Last Filed: 06/02/25 07:13> Imaging Data Radiologist's impression: CT abdomen pelvis with contrast: Abnormal fat stranding with extensive tracking subcutaneous emphysema extending from the right inguinal region inferiorly to the medial aspect of the proximal thigh and into the right pannus. Appearance consistent with necrotizing fasciitis and emergent surgical consultation is recommended <Rosa Benson PA-C - Last Filed: 06/03/25 14:15> Critical Care Time Critical Care Time Critical Care Time: Yes <Rosa Benson PA-C - Last Filed: 06/03/25 14:15> Total Critical Care Time: 35 <Rosa Benson PA-C - Last Filed: 06/03/25 14:15> 95 <Tom Mabry MD - Last Filed: 06/02/25 07:13> Discharge Plan Discharge Clinical Impression: Narendra gangrene in female, Necrotizing fasciitis <Rosa Benson PA-C - Last Filed: 06/03/25 14:15> Patient Disposition: Acute Care Hospital <Rosa Benson PA-C - Last Filed: 06/03/25 14:15> Condition: Guarded Prognosis <Rosa Benson PA-C - Last Filed: 06/03/25 14:15> Patient Language: Bolivian <Rosa Benson PA-C - Last Filed: 06/03/25 14:15> Follow-up/Referrals: UNKNOWN,DOCTOR [Primary Care Provider] - <WOLFGANG Nayak Last Filed: 06/03/25 14:15>
[2025-06-02 00:52] LABS: Hematocrit 39.4 % (37.0-47.0); Hemoglobin 13.2 g/dL (12.0-15.0); Mean Corpuscular HGB Conc 33.5 g/dl (32-36); Mean Corpuscular Hemoglobin 28.6 pg (26-34); Mean Corpuscular Volume 85.3 fl (80-100); Platelet Count Result 334 k/mm3 (150-375); Red Blood Count 4.62 M/mm3 (4.2-5.4); White Blood Count 28.8 K/mm3 (4.5-10.0)
[2025-06-02 01:03] LABS: INR 1.2; Prothrombin Time 14.9 Seconds (11.1-14.7)
[2025-06-02 01:04] LABS: Partial Thromboplastin Time 30.4 Seconds (22.3-36.8)
[2025-06-02 01:13] LABS: Anisocytosis 1+; Band Neutrophils Percent 3 % (0-6); Burr Cells 1+; Lymphocytes Absolute Manual 1.44 K/mm3 (1.1-4.5); Lymphocytes Percent Manual 5.0 % (18-44); Monocytes Absolute Manual 1.15 K/mm3 (0.1-0.90); Monocytes Percent Manual 4 % (3-9); Neutrophils Absolute Manual 26.20 K/mm3 (1.3-6.7); Neutrophils Percent Manual 88 % (46-73); Schistocytes None Seen; Total Cells Counted 100
[2025-06-02] MEDS: CLINDAMYCIN 900 MG/D5W 50 ML 900 MG/50 ML PIGGYBACK 50 MG IVPB (02:25)
[2025-06-02] MEDS: Please add drug allergy info to patient profile. 1 EACH XX (02:34)
[2025-06-02] MEDS: FLUCONAZOLE 150 MG TABLET PO (02:39)
[2025-06-02] MEDS: MEROPENEM 1 GM in SODIUM CHLORIDE 0.9% IV 100 ML 200 ML IVPB (02:40)
[2025-06-02] MEDS: SODIUM CHLORIDE 0.9% IV 1,000 ML 999 ML IV CONT (02:40)
[2025-06-02 04:20] LABS: Alanine Aminotransferase 23 U/L (6-35); Albumin Level 3.3 g/dL (3.5-5.1); Alkaline Phosphatase 136 U/L (38-126); Anion Gap 18 mmol/L (4-12); Aspartate Amino Transferase 25 U/L (14-36); Bilirubin,Total 0.5 mg/dL (0.2-1.3); Blood Urea Nitrogen 30 mg/dL (7-17); CRP > 45.0 mg/dL (<1.0); Calcium 9.0 mg/dL (8.4-10.2); Carbon Dioxide 13 mmol/L (22-30); Chloride 95 mmol/L (98-107); Estimated CRCL calculation 62 ml/min; Estimated Glomerular Filt Rate 38; Glucose 455 mg/dL (65-110); Potassium 4.3 mmol/L (3.4-5.0); Sodium 126 mmol/L (137-145); Total Protein 6.5 g/dL (6.3-8.2)
== END 2025-06-02 03:55 | disposition short-term general hospital (02) ==
PROVIDERS: Emergency Provider Physician Assistant
DX: N76.82 Fournier disease of vagina and vulva (principal); E11.9 Type 2 diabetes mellitus without complications
CPT/HCPCS: 36415; 74177; 80053; 83605; 85025; 85610; 85652; 85730; 86140; 87040; 87070; 87075; 87205; 96365; 96368; 99284; A9270; J2185; J7030; Q9967

== ENCOUNTER 2025-08-21 16:31 | Emergency (ER) | payer OTHER, SELFPAY ==
[2025-08-21] VITALS (9 sets, daily range): BP systolic 123–174; BP diastolic 50–106; PULSE 84–107; RESP 12–23; TEMP 36.6; O2SAT 97–99
--- NOTE | ~2025-08-21 | CT_ITS ---
EXAMINATION: CT abdomen pelvis w con DATE: 08/21/2025 20:16 INDICATION: Rule out necrotizing fasciitis TECHNIQUE: Computed tomography (CT) of the abdomen and pelvis was performed with 100 cc Omnipaque 350 intravenous contrast. The dose-length product was 2168.44 mGy-cm. Automated exposure control and iterative reconstruction technique were employed. COMPARISON: CT dated 06/02/2025. FINDINGS: Lung bases are unremarkable. Heart size normal. No significant pleural or pericardial effusion. Small hiatal hernia. There are gallstones. There is geographic hypodensity of the liver near the falciform ligament, consistent with fatty infiltration. There is mild subcutaneous edema the lower abdomen. There is stranding of the right inguinal fat, although the inguinal region is incompletely occluded. No fluid collection is identified to suggest abscess. There are enlarged right inguinal lymph nodes, likely reactive. Nonobstructive bowel gas pattern. No significant vascular abnormality. No free air or free fluid. The spleen, pancreas, adrenal glands and kidneys are unremarkable. No acute osseous abnormality. Mild lumbar spondylosis. IMPRESSION: 1. Mild diffuse subcutaneous edema lower anterior abdominal wall, nonspecific. Fatty stranding is noted in the right inguinal region extending toward the groin, although incompletely visualized, suspicious for cellulitis. This abnormality is incompletely visualized. No definite abscess is seen. 2: Mildly enlarged right inguinal lymph nodes, likely reactive. 3: Cholelithiasis. Reviewed, dictated and finalized at location O. [facility] ATTENDANT IMPRESSION: 1. Mild diffuse subcutaneous edema lower anterior abdominal wall, nonspecific. Fatty stranding is noted in the right inguinal region extending toward the groi n, although incompletely visualized, suspicious for cellulitis. This abnormalit y is incompletely visualized. No definite abscess is seen. 2: Mildly enlarged right inguinal lymph nodes, likely reactive. 3: Cholelithiasis.
--- OUTSIDE RECORDS SUMMARY | 2025-08-21 16:58 | XMS_ITS | Encounter Summary ---
Author Organization [facility] Address [address] [place] [address] Care Team Providers Care Metal Coater Operator Name Role Phone Qi Gabriel MD Primary Care Pr ovidRosie Quick DO Primary Care Provider [phone] Encounter Details Date Type Department Care Team (Late st Contact Info) Description 01/15/2023 [employer]Rock Energ[employer] Message Enc [facility] Multispecialty Care - [address] [place] [address] Qi Gabriel MD Farxiin Social History Tobacco Use Types Packs/Day Years Used Date Smoking Tobacco: Never Smokeless Tobacco: Never Comments No Sex and Gender Information Value Date Recorded Sex Assigned at Female 05/21/2025 1:18 PM CDT Legal Sex Female 8:24 AM ADMISSIONS GATE ATTENDANT Gender Identity Female 05/21/2025 1:18 PM CDT [...] Care Team (Late st Contact Info) Description 08/30/2025 11:00 AM ADMISSIONS GATE ATTENDANT Office Visit [facility], [place] [address] [place] [address] Matthew Agustin MD 3 [place] [address] 12/26/2025 10:20 AM CDT Office Visit [facility] - [address] [place] [address] Sebastien Naik MD 3 [facility] [place] [facility] [place] [address] documented as of this encounter Visit Diagnoses Not on filedocumented in this encounter Care Teams Metal Coater Operator Relationship Specialty Start Date End Date Qi Gabriel MD PCP - General FAMILY PRACTICE 01/11/23 03/21/23 Rosie Aguilera DO [facility]1 [place] [address] PCP - General FAMILY PRACTICE 05/21/25 documented as of this encounter
--- OUTSIDE RECORDS SUMMARY | 2025-08-21 16:58 | XMS_ITS | Encounter Summary ---
Author Organization [facility] Address [facility] [place] [address] Care Team Providers Care Front Desk Specialist Name Role Phone Qi Gabriel MD Primary Care Pr ovidRosie Quick DO Primary Care Provider [phone] Encounter Details Date Type Department Care Team (Late Contact Info) Description 01/19/2023 [employer]IHO Technology Message Enc [facility] Multispecialty Care [address] [place] [address] [employer], [facility] Provider medication Social History Tobacco Use Types Packs/Day Years Used Date Smoking Tobacco: Never Smokeless Tobacco: Never Comments No Sex and Gender Information Value Date Recorded Sex Assigned at Female 05/21/2025 1:18 PM CDT Legal Sex Female 8:24 AM RESTORER PAPER AND PRINTS Gender Identity Female 05/21/2025 1:18 PM CDT [...] Department Care Team (Late Contact Info) Description 08/30/2025 11:00 AM RESTORER PAPER AND PRINTS Office Visit [facility], [facility] [address] [place] [address] Matthew Agustin MD 3 [place] [address] 12/26/2025 10:20 AM CDT Office Visit [facility] Pulmonology Specialty Clinic - [address] [place] [address] Sebastien Naik MD 3 [facility] [address] [place] [address] documented as of this encounter Visit Diagnoses Not on filedocumented in this encounter Care Teams Front Desk Specialist Relationship Specialty Start Date End Date Qi Gabriel MD PCP - General FAMILY PRACTICE 01/11/23 03/21/23 Rosie Aguilera DO [address] [place] [address] PCP - General FAMILY PRACTICE 05/21/25 documented as of this encounter
--- OUTSIDE RECORDS SUMMARY | 2025-08-21 16:58 | XMS_ITS | Encounter Summary ---
Author Organization [facility] Address [facility] [place] [address] Care Team Providers Care Asphalt Tamper Name Role Phone Qi Gabriel MD Primary Care Pr ovidRosie Quick DO Primary Care Provider [phone] Encounter Details Date Type Department Care Team (Late Contact Info) Description 01/19/2023 Picwing Message Enc [facility] Multispecialty Care [address] [place] [address] [employer], [facility] Provider medication Social History Tobacco Use Types Packs/Day Years Used Date Smoking Tobacco: Never Smokeless Tobacco: Never Comments No Sex and Gender Information Value Date Recorded Sex Assigned at Female 05/21/2025 1:18 PM CDT Legal Sex Female 8:24 AM CHURCH SUPERVISOR Gender Identity Female 05/21/2025 1:18 PM [...] (Late Contact Info) Description 08/30/2025 11:00 AM CHURCH SUPERVISOR Office Visit [facility] [facility] [address] [place] [address] Matthew Agustin MD 3 [place] [address] 12/26/2025 10:20 AM CDT Office Visit [facility] Pul[facility]ty [facility] - [address] [place] [address] Sebastien Naik MD 3 [facility] [address] [place] [address] documented as of this encounter Visit Diagnoses Not on filedocumented in this encounter Care Teams Asphalt Tamper Relationship Specialty Start Date End Date Qi Gabriel MD PCP - General FAMILY PRACTICE 01/11/23 03/21/23 Rosie Aguilera DO [address] [place] [address] PCP - General FAMILY PRACTICE 05/21/25 documented as of this encounter
--- OUTSIDE RECORDS SUMMARY | 2025-08-21 16:58 | XMS_ITS | Encounter Summary ---
Author Organization [facility] Address [address] [place] [address] Care Team Providers Care Medication Reconciliation Technician Name Role Phone Qi Gabriel MD Primary Care Pr ovidRosie Quick DO Primary Care Provider [phone] Encounter Details Date Type Department Care Team (Late st Contact Info) Description 01/11/2023 WebChalett Message Enc [facility] Multispecialty Care - [address] [place] [address] Qi Gabriel MD [facility] Social History Tobacco Use Types Packs/Day Years Used Date Smoking Tobacco: Never Smokeless Tobacco: Never Comments No Sex and Gender Information Value Date Recorded Sex Assigned at Female 05/21/2025 1:18 PM CDT Legal Sex Female 8:24 AM DISTRIBUTOR OF DIRECTORIES Gender Identity Female 05/21/2025 1:18 PM CDT [...] st Contact Info) Description 08/30/2025 11:00 AM DISTRIBUTOR OF DIRECTORIES Office Visit [facility] THREE [facility], [address] [address] Matthew Agustin MD 3 [place] [address] 12/26/2025 10:20 AM CDT Office Visit [facility] Pul[facility]ty Clinic - [address] [place] [address] Sebastien Naik MD [address] [address] documented as of this encounter Visit Diagnoses Not on filedocumented in this encounter Care Teams Medication Reconciliation Technician Relationship Specialty Start Date End Date Qi Gabriel MD PCP - General FAMILY PRACTICE 01/11/23 03/21/23 Rosie Aguilera DO [address] [place] [address] PCP - General FAMILY PRACTICE 05/21/25 documented as of this encounter
--- OUTSIDE RECORDS SUMMARY | 2025-08-21 16:58 | XMS_ITS | Encounter Summary ---
Author Organization [facility] Address [facility] [place] [address] Care Team Providers Care Otm Consultant Name Role Phone WillyRosie carranza Maylin CARCAMO Primary Care Provider [phone] Encounter Details Date Type Department Care Team (Latest Contact Info) Description 11/17/2023 MyChart Message Enc [facility] Multispecialty Care - [place] [address] [address] [place] [address] [place] [address] [place] [address] [address] [place] [address] Pre-Authorization Needed for Farxiga 5mg Social History Tobacco Use Types Packs/Day Years Used Date Smoking Tobacco: Never Smokeless Tobacco: Never Comments:Counseled by Dr Charisse vu. 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 AM FIRE PROTECTION DESIGNER Gender Identity Female 05/21/2025 1:18 PM CDT Sexual Orientation Not on file documented as of this encounter Plan of Treatment Upcoming Encounters Date Type Department Care Team (Late st Contact Info) Description 08/30/2025 11:00 AM FIRE PROTECTION DESIGNER Office Visit [facility] [facility], [address] [address] Matthew Agustin MD 3 [place] [address] 12/26/2025 10:20 AM CDT Office Visit [facility] Pulmonology Specialty Clinic - [address] [place] [address] Sebastien Naik MD 3 [facility] [address] [place] [address] documented as of this encounter Visit Diagnoses Not on filedocumented in this encounter Additional Health Concerns Assessment Noted Time PHQ-9 Depression Total Score: 8 05/21/20 23 1:09 PM CDT documented as of this encounter Care Teams Otm Consultant Relationship Specialty Start Date End Date Rosie Aguilera DO [address] [place] [address] PCP - General FAMILY PRACTICE 05/21/25 documented as of this encounter
--- OUTSIDE RECORDS SUMMARY | 2025-08-21 16:58 | XMS_ITS | Encounter Summary ---
Author Organization [facility] Address [address] [place] [address] Care Team Providers Care Cement Cutter Name Role Phone Qi Gabriel MD Primary Care Pr ovidRosie Quick DO Primary Care Provider [phone] Encounter Details Date Type Department Care Team (Late Contact Info) Description 01/13/2023 Bizzabot Message Enc [facility] Multispecialty Care [address] [place] [address] Qi Gabriel MD PRIOR AUTHORIZATION REQUIRED Social History Tobacco Use Types Packs/Day Years Used Date Smoking Tobacco: Never Smokeless Tobacco: Never Comments No Sex and Gender Information Value Date Recorded Sex Assigned at Female 05/21/2025 1:18 PM CDT Legal Sex Female 8:24 AM MIDLEVEL PROVIDER Gender Identity Female 05/21/2025 1:18 PM CDT [...] st Contact Info) Description 08/30/2025 11:00 AM MIDLEVEL PROVIDER Office Visit [facility] [facility], [place] [address] [place] [address] Matthew Agustin MD 3 [place] [address] 12/26/2025 10:20 AM CDT Office Visit [facility] Pulmonology Specialty Clinic - [address] [place] [address] Sebastien Naik MD 3 [facility] [place] [address] [place] [address] documented as of this encounter Visit Diagnoses Not on filedocumented in this encounter Care Teams Cement Cutter Relationship Specialty Start Date End Date Qi Gabriel MD PCP - General FAMILY PRACTICE 01/11/23 03/21/23 Rosie Aguilera DO [address] [place] [address] PCP - General FAMILY PRACTICE 05/21/25 documented as of this encounter
--- OUTSIDE RECORDS SUMMARY | 2025-08-21 16:58 | XMS_ITS | Data Portability ---
Author Organization [facility] Address [address] [place] [address] Assessment No assessment recorded. Plan of Treatment Reminders Order Date Submit Date Provider Last Modified By Organization Details Last Modified Time Details Appointments None recorded. Lab None recorded. Referral None recorded. Procedures None recorded. Surgeries None recorded. Imaging None recorded. Medication Orders estradiol 0.05 mg/24 hr semiweekly transdermal patch 2024 025 [id number], [address] [facility], [place], [id number], 12:04:14 Slynd 4 mg (28) tablet [address], [address] [place] [address], [address], 11:54:26 Patient TargetsNo targets recorded. Patient InstructionsNo instructions recorded. Reason for Referral None Reported. Procedures Surgical History Date Name Laterality Status Provider Name and Address Organization Details Recorded Time 02/27/2022 Date of Last Pap Smear completed [facility] 04/26/2025 12:00:08 tonsilectom y/adenoids completed [facility] 04/26/2025 12:13:18 Imaging Results None recorded. Procedure Notes None recorded. Medical Equipment None Reported. Allergies No known drug allergies Medications Name Sig Start Date Stop Date Status Note LastModified by Organization Details LastModified Time atorvastati n 40 mg tablet Take 1 tablet every day by oral route. active Not Available Not Available No t Available venlafaxine ER 37.5 mg capsule,ext ended release 24 hr TAKE 1 CAPSULE BY MOUTH EVERY DAY 04/26 completed Not Available Not Available Not Available venlafaxine ER 75 mg capsule,ext ended release 24 hr TAKE 1 CAPSULE BY MOUTH EVERY DAY active Not Available Not Available No t Available pravastatin 40 mg tablet 1 tablet every day by oral route. active Not Available Not Available No t Available sulfamethox azole 800 mg-trimetho prim 160 mg tablet TAKE 2 TABLETS BY MOUTH TWICE DAILY FOR 10 DAYS active Not Available Not Available No t Available amlodipine 10 mg tablet 1 tablet every day by oral route. active Not Available Not Available No t Available cephalexin 500 mg capsule TAKE 1 CAPSULE BY MOUTH FOUR TIMES DAILY FOR 10 DAYS active Not Available Not Available No t Available venlafaxine ER 75 mg capsule,ext ended release Take 1 capsule every day by oral route. 04/26 completed Not Available Not Available Not Available lisinopril 20 mg-hydrochl orothiazide 25 mg tablet Take 1 tablet every day by oral route. active Not Available Not Available No t Available mupirocin 2 % topical ointment APPLY GRAM TOPICALLY TO THE AFFECTED AREA THREE TIMES DAILY FOR 7 DAYS active Not Available Not Available No t Available insulin lispro (U-100) 100 unit/mL subcutaneou s pen ADMINISTE R 6 UNITS UNDER THE SKIN THREE TIMES DAILY WITH MEALS active Not Available Not Available No t Available bupropion HCl XL 150 mg 24 hr tablet, extended release 1 tablet every day by oral route. active Not Available Not Available No t Available Tri-Sprinte c (28) 0.18 mg(7)/0.215 mg(7)/0.25 mg(7)-0.035 mg tablet TAKE 1 TABLET BY MOUTH EVERY DAY 04/26 completed Not Available Not Available Not Available insulin lispro 04/26 completed Not Available Not Available Not Available Lantus Solostar U-100 Insulin 100 unit/mL (3 mL) subcutaneou s pen ADMINISTE R 47 UNITS UNDER THE SKIN EVERY DAY AT BEDTIME active Not Available Not Available No t Available Lantus Solostar U-100 Insulin 04/26 completed Not Available Not Available Not Available Estarylla 0.25 mg-0.035 mg tablet Take 1 tablet every day by oral route. 04/26 completed Not Available Not Available Not Available Farxiga 5 mg tablet TAKE 1 TABLET BY MOUTH EVERY DAY 04/26 completed Not Available Not Available Not Available Jardiance 10 mg tablet Take 1 tablet every day by oral route. active Not Available Not Available No t Available Slynd 4 mg (28) tablet Take 1 tablet every day by oral route. 05/23 completed Not Available Not Available Not Available Lyllana 0.05 mg/24 hr transdermal patch APPLY 1 PATCH TO SKIN TWICE A WEEK 2024 active Not Available Not Available Not Avai lable Ozempic 1 mg/dose (4 mg/3 mL) subcutaneou s pen injector INJECT 1 MG UNDER THE SKIN ONCE WEEKLY 04/26 completed Not Available Not Available Not Available Paxlovid 300 mg (150 mg x 2)-100 mg tablets in a dose pack FOLLOW PACKAGE DIRECTION S 04/26 completed Not Available Not Available Not Available Ozempic 2 mg/dose (8 mg/3 mL) subcutaneou s pen injector INJECT 2 MG UNDER THE SKIN ONCE WEEKLY ON THE SAME DAY OF EACH WEEK 04/26 completed Not Available Not Available Not Available Klayesta 100,000 unit/gram topical powder APPLY TO THE AFFECTED AREA TWICE DAILY active Not Available Not Available No t Available Vitals Date Recorded Body height Body mass index (BMI) Body weight Systolic And Diastolic Provider Name and Address Organization Details Last Updated DateTime 04/26/2025 154.94 cm 67.9 kg/m2 664347.38 g 162/82 mm[Hg] [facility] 04/26/2025 12:05:41 Date Recorded Body height Body mass index (BMI) Body weight Systolic And Diastolic Provider Name and Address Organization Details Last Updated DateTime 05/23/2025 154.94 cm 67.3 kg/m2 707439.88 g 126/69 mm[Hg] [facility] 05/23/2025 11:43:04 Social History Question Answer Notes LastModified by Organizat ion Details LastModified Time Tobacco Smoking Status Never Smoker Ana Padilla [facility] 04/26/2025 12:12:20 Do You Have An Advance Directive? No [email or web address] Information n ot available 04/26/2025 If You Are , What Was Your Level Of Alcohol Consumption Prior To ? None [email or web address] Information not available 04/26/2025 Are You Blind Or Do You Have Difficulty Seeing? No [email or web address] Information n ot available 04/26/2025 What Is Your Level Of Caffeine Consumption? Moderate [email or web address] Information not available 04/26/2025 In The 14 Days Before Symptom Onset, Have You Had Close Contact With A Laboratory-confirm ed COVID-19 While That Case Was Ill? No [email or web address] Information n ot available 04/26/2025 In The 14 Days Before Symptom Onset, Have You Had Close Contact With A Person Who Is Under Investigation For COVID-19 While That Person Was Ill? No Information not available 04/26/2025 Have You Been To An Area Known To Be High Risk For COVID-19? No [email or web address] Information not available 04/26/2025 Are You Deaf Or Do You Have Serious Difficulty Hearing? No Information not available 04/26/2025 What Is The Highest Grade Or Level Of School You Have Completed Or The Highest Degree You Have Received? TL48961-5 [email or web address] Information not available 04/26/2025 Are There Any Guns Present In Your Home? No [email or web address] Information not available 04/26/2025 Do You Use Protection During Sex? No [email or web address] Information not available 04/26/2025 Do You Use Your Seat Belt Or Car Seat Routinely? No [email or web address] Information not available 04/26/2025 Are You Sexually Active? No [email or web address] Information not available 04/26/2025 Do You Have Smoke And Carbon Monoxide Detectors In Your Home? Yes [email or web address] Information not available 04/26/2025 Do You Use Sunscreen Routinely? No [email or web address] Information not available 04/26/2025 Have You Used IV Drugs? No [email or web address] Information not available 04/26/2025 Do You Have Difficulty Walking Or Climbing Stairs? No [email or web address] Information not available 04/26/2025 Sex: Unknown Functional Status Question Answer Note LastModified by Organizat ion Details LastModified Time Do you use any illicit or recreational drugs? No Information not available 04/26/2025 What is your level of alcohol consumption? None Information not available 04/26/2025 Are you currently employed? No Information not available 04/26/2025 Are you able to walk independently without assistance or assistive devices? YESWOREST [email or web address] Information not available 04/26/2025 Are you able to care for yourself independently? Yes [email or web address] Information not available 04/26/2025 What is your occupation? N/A [email or web address] Information not available 04/26/2025 Do you have difficulty dressing, bathing, grooming, or toileting? No [email or web address] Information not available 04/26/2025 What is your exercise level? None [email or web address] Information not available 04/26/2025 Mental Status Question Answer Note LastModified by Organization D etails LastModified Time Do you feel stressed (tense, restless, nervous, or anxious, or unable to sleep at night)? [id number] [email or web address] Information not available 04/26/2025 Family History Relationship Description Onset Age of this Age Resolved Age Notes LastModified by Organization Details LastModified Time Paternal Uncle Hypertensive disorder [email or web address] Not available 2024 12:00:07 Brother Mental disorder [email or web address] Not available 2024 12:00:07 Father Malignant neoplasm of lung Not available 2024 12:00:07 Father Hypertensive disorder [email or web address] Not available 2024 12:00:07 Mother Malignant neoplasm of lung [email or web address] Not available 2024 12:00:07 Mother Hypertensive disorder [email or web address] Not available 2024 12:00:07 Mother Kidney disease Not available 2024 12:00:07 Paternal Aunt Hypertensive disorder [email or web address] Not available 2024 12:00:07 Maternal Grandmother Hypertensive disorder [email or web address] Not available 2024 12:00:07 Sister Disorder of thyroid gland [email or web address] Not available 2024 12:00:07 Sister Mental disorder [email or web address] Not available 2024 12:00:07 Maternal Grandfather Malignant neoplasm of colon [email or web address] Not available 2024 12:00:07 Maternal Grandfather Hypertensive disorder [email or web address] Not available 2024 12:00:07 Maternal Grandfather Heart disease [email or web address] Not available 2024 12:00:07 Paternal Grandfather Heart disease [email or web address] Not available 2024 12:00:07 Medical History Condition Response Allergies (Food, seasonal, environmental ) Y Diabetes Y Hypertension Y High Cholesterol Y Depression/ depression Y Gynecological History Statement/Question Response Flow Moderate Date of LMP 05/01/2025 On BCP's at Conception? N N Was last menstrual period normal N STIs/STDs N HPV Vaccine N Duration of Flow (days) 8 Current Control Method BCPs Are cycles usually normal N Frequency of Cycle (Q days) 28 Sexually Active? N Menses Monthly N Age of first menstrual cycle 13 Date of Last Pap Smear 02/27/2022 Sexual Problems? N Desired Control Method None LMP Definite N Obstetrics History GPAL:G 0 P 0 0 0 0 Past Encounters Encounter ID Performer Location Encounter Start Date Encounter Closed Date Diagnosis/Indication Diagnosis SNOMED-CT Code Diagnosis ICD10 Code Diagnosis IMO Codes Diagnosis Note [id number] Miguel Florian MD [facility] [address] [address] 04/26/2025 11:54:31 04/26/2025 14:36:23 Menopausal symptom 84139042 N95.1 [id number] Reviewed self-help strategies (dietary changes/ex ercise/acu puncture/e tc.), herbal and other OTC therapies, hormonal options as well as other medication s used to treat common menopausal symptoms.D iscussed switching to a progestero ne-only pill, such as Slynd, or hormonal IUD to help better manage periods and symptoms.D iscussed HRT, including risks/bene fits/AEs/c ontraindic ations. Discussed that systemic/o ral HRT with estrogen is not recommende d due to patient's elevated cardiovasc ular risk (hx of HTN, hyperlipid emia, obesity, and DM II).Patien t desires to trial Slynd.Samp le given, rx sent.Jessica gonzales to [facility] in 3 months for WWE/med check, or sooner with any questions or concerns.P CP list given as patient reports that she is searching for a new PCP. [id number] HOWIE TOMAS NP [facility] [address] [address] 05/23/2025 11:31:46 05/23/2025 13:56:58 Menopausal symptom [id number] N95.1 [id number] Patient reporting worsening hot flashes, night sweats, and joint pain since stopping KWABENA and starting Slynd.Disc ussed transderma l estradiol for HRT and to help improve vasomotor symptoms, including risks/bene fits/AEs/c ontraindic ations.Thi s method allows the hormone to be absorbed directly into the bloodstrea m, bypassing the gastrointe stinal tract and liver, which can reduce the risk of certain side effects associated with oral estrogen and has greater CV safety.We discussed Menopausal Hormone therapy (MHT) for women with intact uterus with the goals of reliving vaso-motor sx's using estrogen/p rogestin therapy (EPT) using lowest doses for shortest duration in women 40-59yo. Side effects can include but are not limited to: Irregular vag bleeding, breast tenderness , nausea, weight changes, libido changes, nausea. Adverse Rxn: Elevated BP migraine w/ visual changes, breast cancer dx, [place]/stroke, DVT/PE, Endometria l cancer. Please contact office with any new or worsening side effects or adverse reactions. Or if a medical emergency please go to nearest ED/Urgency care for further evaluation . Discussed progestero ne options for endometria l protection , including hormonal IUD, cyclical micronized progestero ne, or staying on POP.Lyndon mckeon desires to continue Slynd for BC and endometria l protection . Patient to [facility] in 2 months for WWE/med check, or sooner with any questions or concerns. Health Concerns Section Related Observation LastModified by Organization Detai ls LastModified Time None Recorded Concern Status LastModified by Organization Details LastModified Time None Recorded Advance Directives Directive N: Payers Insurance Date Sequence Insurance Name Policy Number Policy Williamson Covered Member ID Williamson Member ID Guarantor Name 05/22/2025 1 [id number] Nelly Russ [id number] Nelly Russ 05/23/2025 1 [facility] [place] Nelly Russ [id number] Nelly Russ Notes Date Note Type Note Provider Name and Address Organization Details Recorded Time 04/26/2025 text/html 49 y/o female presents to establish care and to discuss theodore-menopausal symptoms. Patient reports that she has been on a KWABENA for several years to regulate her periods and was recently switched from Tri-Sprintec to Estarylla KWABENA by PCP to help with menopausal sx, but reports that she has been having light bleeding since 04/06/25 on the new pill. Patient reports symptoms of join pain, hot flashes, and mood swings. Patient reports that she is also taking venlafaxine 75 mg PO daily and it is not helping her vasomotor symptoms. Patient reports that she is not sexually active. HOWIE TOMAS NP [address], [place], [address], [facility] 04/26/2025 14:28:23 05/23/2025 text/html 49 y/o female presents with c/o worsening hot flashes, night sweats, and joint pain since switching to Slynd from a KWABENA.Patient reports that she had irregular bleeding when she first started Slynd, but now she has not had bleeding since 05/01/25.Has been established with a new PCP. HOWIE TOMAS NP [address], [place], [address], [facility] 05/23/2025 13:43:30 OBGyn Episode No OBEpisode recorded.
--- OUTSIDE RECORDS SUMMARY | 2025-08-21 16:58 | XMS_ITS | Encounter Summary ---
Author Organization [facility] Address [address] [place] [address] Care Team Providers Care Web Manager Name Role Phone Qi Gabriel MD Primary Care Pr ovidRosie Quick DO Primary Care Provider [phone] Encounter Details Date Type Department Care Team (Late st Contact Info) Description 01/21/2023 Rapid Pathogen Screeningt Message Enc [facility] Multispecialty Care - [address] [place] [address] Qi Gabriel MD Update on my prescriptions & health Social History Tobacco Use Types Packs/Day Years Used Date Smoking Tobacco: Never Smokeless Tobacco: Never Comments No Sex and Gender Information Value Date Recorded Sex Assigned at Female 05/21/2025 1:18 PM CDT Legal Sex Female 8:24 AM BREAD JOCKEY Gender Identity Female 05/21/2025 1:18 PM CDT [...] st Contact Info) Description 08/30/2025 11:00 AM BREAD JOCKEY Office Visit [facility], [address] [address] Matthew Agustin MD 3 [place] [address] 12/26/2025 10:20 AM CDT Office Visit [facility] - [address] [place] [address] Sebastien Naik MD [address] [address] documented as of this encounter Visit Diagnoses Not on filedocumented in this encounter Care Teams Web Manager Relationship Specialty Start Date End Date Qi Gabriel MD PCP - General FAMILY PRACTICE 01/11/23 03/21/23 Rosie Aguilera DO [address] [place] [address] PCP - General FAMILY PRACTICE 05/21/25 documented as of this encounter
--- OUTSIDE RECORDS SUMMARY | 2025-08-21 16:58 | XMS_ITS | Encounter Summary ---
Author Organization [facility] Address [address] [place] [address] Care Team Providers Care Repairer Wood Furniture Name Role Phone Qi Gabriel MD Primary Care Pr ovidRosie Quick DO Primary Care Provider [phone] Encounter Details Date Type Department Care Team (Late Contact Info) Description 01/15/2023 Big Frame Message Enc [facility] Medical Group Multispecialty Care [address] [place] [address] [facility], [facility] Provider Lab Results Social History Tobacco Use Types Packs/Day Years Used Date Smoking Tobacco: Never Smokeless Tobacco: Never Comments No Sex and Gender Information Value Date Recorded Sex Assigned at Female 05/21/2025 1:18 PM CDT Legal Sex Female 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 HELPER Gender Identity Female 05/21/2025 1:18 PM [...] (Late Contact Info) Description 08/30/2025 11:00 AM MARBLE MECHANIC HELPER Office Visit [facility] [facility], [facility] [address] [place] [address] Matthew Agustin MD 3 [place] [address] 12/26/2025 10:20 AM CDT Office Visit [facility]ty [facility] - [address] [place] [address] Sebastien Naik MD 3 [facility] [place] [address] [place] [address] documented as of this encounter Visit Diagnoses Not on filedocumented in this encounter Care Teams Repairer Wood Furniture Relationship Specialty Start Date End Date Qi Gabriel MD PCP - General FAMILY PRACTICE 01/11/23 03/21/23 Rosie Aguilera DO [address] [place] [address] PCP - General FAMILY PRACTICE 05/21/25 documented as of this encounter
--- OUTSIDE RECORDS SUMMARY | 2025-08-21 16:58 | XMS_ITS | Encounter Summary ---
Author Organization [facility] Address [facility] [place] [address] Care Team Providers Care Electric Meter Tester Helper Name Role Phone WillyRosie carranza Maylin CARCAMO Primary Care Provider [phone] Encounter Details Date Type Department Care Team (Latest Contact Info) Description 05/26/2023 MyChart Message Enc [facility] Medical Group Multispecialty Care - [place] [address] [place] [address] [address] [place] [address] [place] [address] [place] [address] [address] [place] [address] your rybelsus is approved thanks. Social History Tobacco Use Types Packs/Day Years Used Date Smoking Tobacco: Never Smokeless Tobacco: Never Comments:Counseled by Dr Charisse vu. 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 PAINTER Gender Identity Female 05/21/2025 1:18 PM CDT Sexual Orientation Not on file documented as of this encounter Plan of Treatment Upcoming Encounters Date Type Department Care Team (Late st Contact Info) Description 08/30/2025 11:00 AM INDUSTRIAL SPRAY PAINTER Office Visit [facility] [facility] [place], [facility] [address] [place] [address] Matthew Agustin MD 3 [place] [address] 12/26/2025 10:20 AM CDT Office Visit [facility] Medical [facility] Pul[facility] Specialty Clinic - [address] [place] [address] Sebastien Naik MD 3 [facility] [place] [address] [place] [address] documented as of this encounter Visit Diagnoses Not on filedocumented in this encounter Additional Health Concerns Assessment Noted Time PHQ-9 Depression Total Score: 8 05/21/20 23 1:09 PM CDT documented as of this encounter Care Teams Electric Meter Tester Helper Relationship Specialty Start Date End Date Rosie Aguilera DO [address] [place] [address] PCP - General FAMILY PRACTICE 05/21/25 documented as of this encounter
--- OUTSIDE RECORDS SUMMARY | 2025-08-21 16:58 | XMS_ITS | Encounter Summary ---
Author Organization [facility] Address [facility] [place] [address] Care Team Providers Care Die Maker Name Role Phone WillyRosie Maylin CARCAMO Primary Care Provider [phone] Encounter Details Date Type Department Care Team (Latest Contact Info) Description 07/26/2023 MyChart Message Enc [facility] Medical Group Multispecialty Care - [place] [address] [address] [place] [address] [place] [address] [place] [address] [address] [place] [address] UPDATED MEDICATION LIST Social History Tobacco Use Types Packs/Day Years Used Date Smoking Tobacco: Never Smokeless Tobacco: Never Comments:Counseled by Dr Charisse vu. 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 AM DATA ENTRY SUPERVISOR Gender Identity Female 05/21/2025 1:18 PM CDT Sexual Orientation Not on file documented as of this encounter Plan of Treatment Upcoming Encounters Date Type Department Care Team (Late st Contact Info) Description 08/30/2025 11:00 AM DATA ENTRY SUPERVISOR Office Visit [facility] [facility], [place] [address] [place] [address] Matthew Agustin MD 3 [place], [place] [id number] 12/26/2025 10:20 AM CDT Office Visit [facility] Medical [facility] Pul[facility] Specialty Clinic - [address] [place] [address] Sebastien Naik MD [address] [place] [address] documented as of this encounter Visit Diagnoses Not on filedocumented in this encounter Additional Health Concerns Assessment Noted Time PHQ-9 Depression Total Score: 8 05/21/20 23 1:09 PM CDT documented as of this encounter Care Teams Die Maker Relationship Specialty Start Date End Date Rosie Aguilera DO [address] [place] [address] PCP - General FAMILY PRACTICE 05/21/25 documented as of this encounter
--- OUTSIDE RECORDS SUMMARY | 2025-08-21 16:58 | XMS_ITS | Encounter Summary ---
Author Organization [facility] Address Formerly [facility] [place] [address] Care Team Providers Care Welder Gas Tungsten Arc Name Role Phone WlilyRosie carranza Maylin CARCAMO Primary Care Provider [phone] Encounter Details Date Type Department Care Team (Latest Contact Info) Description 05/26/2023 MyChart Message Enc [facility] Medical Group Multispecialty Care - [address] [place] [address] Ana Stanton NP Prior authorization for [employer] Social History Tobacco Use Types Packs/Day Years Used Date Smoking Tobacco: Never Smokeless Tobacco: Never Comments:Counseled by Dr Charisse vu. 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 AM GARNETT MACHINE OPERATOR HELPER Gender Identity Female 05/21/2025 1:18 PM CDT Sexual Orientation Not on file documented as of this encounter Plan of Treatment Upcoming Encounters Date Type Department Care Team (Late st Contact Info) Description 08/30/2025 11:00 AM GARNETT MACHINE OPERATOR HELPER Office Visit [facility], [address] [address] Matthew Agustin MD 3 [place], [place] [id number] 12/26/2025 10:20 AM CDT Office Visit [facility] Medical [facility] Pul[facility]ology Specialty Clinic - [address] [place] [address] Sebastien Naik MD [address] [place] [address] documented as of this encounter Visit Diagnoses Not on filedocumented in this encounter Additional Health Concerns Assessment Noted Time PHQ-9 Depression Total Score: 8 05/21/20 23 1:09 PM CDT documented as of this encounter Care Teams Welder Gas Tungsten Arc Relationship Specialty Start Date End Date Rosie Aguilera DO [address] [place] [address] [id number] PCP - General FAMILY PRACTICE 05/21/25 documented as of this encounter
--- OUTSIDE RECORDS SUMMARY | 2025-08-21 16:58 | XMS_ITS | Encounter Summary ---
Author Organization [facility] Address [address] [place] [address] Care Team Providers Care Art Preparator Name Role Phone Rosie Aguilera DO Primary Care Provider [phone] Encounter Details Date Type Department Care Team (Late st Contact Info) Description 05/21/2023 MyChart Message Enc [facility] Medical Group Multispecialty Care - [place] [address] [place] [address] [address] [place] [address] Sarthak Munguia MD [address] [place] [address] [address] [place] [address] Ileana Social History Tobacco Use Types Packs/Day Years Used Date Smoking Tobacco: Never Smokeless Tobacco: Never Comments:Counseled by Dr Charisse vu. 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 AM MEDIA MARKETING SPECIALIST Gender Identity Female 05/21/2025 1:18 PM CDT Sexual Orientation Not on file documented as of this encounter Functional Status * Over the past 2 weeks, how often have you been bothered by any of the following problems? Question Answer Date of Assessment Author Status Little interest or pleasure in doing things Several days 05/21/2023 1:09 PM CDT Pennie Giordano, Nurse Ssn/Ssbn Assistant Navigator I Active Feeling down, depressed, or hopeless Several days 05/21/2023 1:09 PM SHUKRIT Chiara Giordano, Nurse Ssn/Ssbn Assistant Navigator I Active Patient Health Questionnaire-2 Score 2 05/21/2023 1:09 PM CDT Elvie Giordano, Nurse Annie I Active * Question Answer Date of Assessment Author Status Trouble falling or staying asleep, or sleeping too much Nearly every day 05/21/2023 1:09 PM SHUKRIT Pennie Giordano, Nurse Annie I Active Feeling tired or having little energy More than half the days 05/21/2023 1:09 PM SHUKRIT Pennie Giordano, Nurse Annie I Active Poor appetite or overeating Not at all 05/21/2023 1:09 PM SHUKRIT Pennie Giordano, Nurse Annie I Active Feeling bad about yourself - or that you are a failure or have let yourself or your family down Several days 05/21/2023 1:09 PM Pennie Brody, Nurse Annie I Active Trouble concentrating on things, such as reading the newspaper or watching television Not at all 05/21/2023 1:09 PM SHUKRIT Pennie Giordano, Nurse Annie I Active Moving or speaking so slowly that other people could have noticed? Or the opposite - being so fidgety or restless that you have been moving around a lot more than usual. Not at all 05/21/2023 1:09 PM Pennie Brody, Nurse Annie I Active Thoughts that you would be better off or hurting yourself in some way Not at all 05/21/2023 1:09 PM Pennie Brody, Nurse Annie I Active Patient Health Questionnaire-9 Score 8 05/21/2023 1:09 PM CDPennie Roman, Nurse Annie I Active * Calculated C-SSRS Risk Score (Lifetime/Recent) [...] other people? Somewhat difficult 05/21/2023 1:09 PM CDT Pennie Giordano, Nurse Ssn/Ssbn Assistant Navigator I Active * Over the last 2 weeks, how often have you been bothered by any of the following problems? Question Answer Date of Assessment Author Status Feeling nervous, anxious, or on edge 1 05/21/2023 1:10 PM CDT Pennie Giordano, Nurse Ssn/Ssbn Assistant Navigator I Active Not being able to stop or control worrying 0 05/21/2023 1:10 PM CDT Pennie Giordano, Nurse Ssn/Ssbn Assistant Navigator I Active Worrying too much about different things 0 05/21/2023 1:10 PM CDT Pennie Giordano, Nurse Ssn/Ssbn Assistant Navigator I Active Trouble relaxing 1 05/21/2023 1:10 PM CDT Pennie Rosario, Nurse Ssn/Ssbn Assistant Navigator I Active Being so restless that it is hard to sit still 0 05/21/2023 1:10 PM CDT Latoya Giordano i, Nurse Ssn/Ssbn Assistant Navigator I Active Becoming easily annoyed or irritable 3 05/21/2023 1:10 PM CDT Pennie Giordano, Nurse Ssn/Ssbn Assistant Navigator I Active Feeling afraid as if something awful might happen 0 05/21/2023 1:10 PM CDT Pennie Giordano, Nurse Ssn/Ssbn Assistant Navigator I Active SYD-7 Total Score 5 05/21/2023 1:10 PM CDT Pennie Giordano, Nurse Ssn/Ssbn Assistant Navigator I Active * [place] Suicide Severity Rating Scale (Screener/Recent Self-Report) Question Answer Date of Assessment Author Status 1. Wish to be (Past 1 Month) No 05/21/2023 1:38 PM SHUKRIT Sarthak Munguia MD Active 2. Non-Specific Active Suici delmar Thoughts (Past 1 Month) No 05/21/2023 1:38 PM SHUKRIT Sarthak Munguia MD Active 6. Suicidal Behavior (Lifetime) No 05/21/2023 1:38 PM Sarthak Lowe MD Active documented as of this encounter Plan of Treatment Upcoming Encounters Date Type Department Care Team (Late st Contact Info) Description 08/30/2025 11:00 AM MEDIA MARKETING SPECIALIST Office Visit [facility], [address] [address] Matthew Agustin MD 3 [place] [address] 12/26/2025 10:20 AM CDT Office Visit [facility] Medical Group Pulmonology Specialty Clinic - [address] [place] [address] Sebastien Naik MD [address] [address] documented as of this encounter Visit Diagnoses Not on filedocumented in this encounter Additional Health Concerns Assessment Noted Time PHQ-9 Depression Total Score: 8 05/21/20 23 1:09 PM CDT documented as of this encounter Care Teams Art Preparator Relationship Specialty Start Date End Date Rosie Aguilera DO [address] [place] [address] PCP - General FAMILY PRACTICE 05/21/25 documented as of this encounter
--- OUTSIDE RECORDS SUMMARY | 2025-08-21 16:58 | XMS_ITS | Encounter Summary ---
Author Organization [facility] Address Pending sale to [facility] [place] [address] Care Team Providers Care Back Filler Operator Name Role Phone WillyRosie carranza Maylin CARCAMO Primary Care Provider [phone] Encounter Details Date Type Department Care Team (Late st Contact Info) Description 11/04/2023 MyChart Message Enc [facility] Medical Group Multispecialty Care - [place] [address] [address] [place] [address] [place] [address] [place] [address] 157 [place] [address] Humalog Social History Tobacco Use Types Packs/Day Years Used Date Smoking Tobacco: Never Smokeless Tobacco: Never Comments:Counseled by Dr Charisse vu. 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 AM MUSIC LEADER Gender Identity Female 05/21/2025 1:18 PM CDT Sexual Orientation Not on file documented as of this encounter Plan of Treatment Upcoming Encounters Date Type Department Care Team (Late st Contact Info) Description 08/30/2025 11:00 AM MUSIC LEADER Office Visit [facility] [facility], [address] [address] Matthew Agustin MD 3 [place] [address] 12/26/2025 10:20 AM CDT Office Visit [facility] Medical Group Pulmonology Specialty Clinic - [address] [place] [address] Sebastien Naik MD [address] [place] [address] documented as of this encounter Visit Diagnoses Not on filedocumented in this encounter Additional Health Concerns Assessment Noted Time PHQ-9 Depression Total Score: 8 05/21/20 23 1:09 PM CDT documented as of this encounter Care Teams Back Filler Operator Relationship Specialty Start Date End Date Rosie Aguilera DO [address] [place] [address] PCP - General FAMILY PRACTICE 05/21/25 documented as of this encounter
--- OUTSIDE RECORDS SUMMARY | 2025-08-21 16:58 | XMS_ITS | Encounter Summary ---
Author Organization [facility] Address [facility] [place] [address] Care Team Providers Care Police Artist Name Role Phone WillyRosie carranza Maylin CARCAMO Primary Care Provider [phone] Encounter Details Date Type Department Care Team (Latest Contact Info) Description 02/29/2024 MyChart Message Enc [facility] Medical Group Multispecialty Care - [place] [address] [address] [place] [address] [place] [address] [place] [address] 157 [place] [address] Need Antibiotics for a skin Abcess Social History Tobacco Use Types Packs/Day Years Used Date Smoking Tobacco: Never Smokeless Tobacco: Never Comments:Counseled by Dr Charisse vu. 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 AM JOURNEYMAN MOLDER Gender Identity Female 05/21/2025 1:18 PM CDT Sexual Orientation Not on file documented as of this encounter Plan of Treatment Upcoming Encounters Date Type Department Care Team (Late st Contact Info) Description 08/30/2025 11:00 AM JOURNEYMAN MOLDER Office Visit [facility] [facility], [facility] [address] [place] [address] Matthew Agustin MD 3 [place] [address] 12/26/2025 10:20 AM CDT Office Visit [facility] Medical Group Pulmonology Specialty Clinic - [address] [place] [address] Sebastien Naik MD [address] [place] [address] documented as of this encounter Visit Diagnoses Not on filedocumented in this encounter Additional Health Concerns Assessment Noted Time PHQ-9 Depression Total Score: 8 05/21/20 23 1:09 PM CDT documented as of this encounter Care Teams Police Artist Relationship Specialty Start Date End Date Rosie Aguilera DO [address] [place] [address] PCP - General FAMILY PRACTICE 05/21/25 documented as of this encounter
--- OUTSIDE RECORDS SUMMARY | 2025-08-21 16:58 | XMS_ITS | Encounter Summary ---
Author Organization [facility] Address [address] [place] [address] Care Team Providers Care Tie Bucker Name Role Phone Qi Gabriel MD Primary Care Pr ovidRosie Quick DO Primary Care Provider [phone] Encounter Details Date Type Department Care Team (Late st Contact Info) Description 01/11/2023 Akashi Therapeuticst Message Enc [facility] Medical Group Multispecialty Care - [address] [place] [address] Qi Gabriel MD My Pilot Plant Technician's Number Social History Tobacco Use Types Packs/Day Years Used Date Smoking Tobacco: Never Smokeless Tobacco: Never Comments No Sex and Gender Information Value Date Recorded Sex Assigned at Female 05/21/2025 1:18 PM CDT Legal Sex Female 8:24 AM STORAGE CONSULTANT Gender Identity Female 05/21/2025 1:18 PM CDT [...] st Contact Info) Description 08/30/2025 11:00 AM STORAGE CONSULTANT Office Visit [facility] [facility], [address] [address] Matthew Agustin MD 3 [place] [address] 12/26/2025 10:20 AM CDT Office Visit [facility] Pulmonology Specialty Clinic - [address] [place] [address] Sebastien Naik MD [address] [address] documented as of this encounter Visit Diagnoses Not on filedocumented in this encounter Care Teams Tie Bucker Relationship Specialty Start Date End Date Qi Gabriel MD PCP - General FAMILY PRACTICE 01/11/23 03/21/23 Rosie Aguilera DO [address] [place] [address] PCP - General FAMILY PRACTICE 05/21/25 documented as of this encounter
--- OUTSIDE RECORDS SUMMARY | 2025-08-21 16:58 | XMS_ITS | Encounter Summary ---
Author Organization [facility] Address [facility] [place] [address] Care Team Providers Care Television Writer Name Role Phone WillyRosie carranza Maylin CARCAMO Primary Care Provider [phone] Encounter Details Date Type Department Care Team (Late st Contact Info) Description 06/10/2023 MyChart Message Enc [facility] Medical Group Multispecialty Care - [place] [address] [address] [place] [address] [place] [address] [place] [address] 157 [place] [address] Blood Work Social History Tobacco Use Types Packs/Day Years Used Date Smoking Tobacco: Never Smokeless Tobacco: Never Comments:Counseled by Dr Charisse vu. 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 AM PIPE FITTER WELDING Gender Identity Female 05/21/2025 1:18 PM CDT Sexual Orientation Not on file documented as of this encounter Plan of Treatment Upcoming Encounters Date Type Department Care Team (Late st Contact Info) Description 08/30/2025 11:00 AM PIPE FITTER WELDING Office [facility] [facility], [address] [address] Matthew Agustin MD 3 [place], [place] [address] 12/26/2025 10:20 AM CDT Office Visit [facility] Medical Group Pulmonology Specialty Clinic - [address] [place] [address] Sebastien Naik MD [address] [place] [address] documented as of this encounter Visit Diagnoses Not on filedocumented in this encounter Additional Health Concerns Assessment Noted Time PHQ-9 Depression Total Score: 8 05/21/20 23 1:09 PM CDT documented as of this encounter Care Teams Television Writer Relationship Specialty Start Date End Date Rosie Aguilera DO [address] [place] [address] PCP - General FAMILY PRACTICE 05/21/25 documented as of this encounter
--- OUTSIDE RECORDS SUMMARY | 2025-08-21 16:58 | XMS_ITS | Encounter Summary ---
Author Organization [facility] Address [address] [place] [address] Care Team Providers Care Police Patrol Lieutenant Name Role Phone Qi Gabriel MD Primary Care Pr ovidRosie Quick DO Primary Care Provider [phone] Encounter Details Date Type Department Care Team (Late st Contact Info) Description 01/18/2023 MyChart Message Enc [facility] Medical Group Multispecialty Care - [address] [place] [address] Qi Gabriel MD My Blood Sugar Readings 01-11-23/01-17-23 Social History Tobacco Use Types Packs/Day Years Used Date Smoking Tobacco: Never Smokeless Tobacco: Never Comments No Sex and Gender Information Value Date Recorded Sex Assigned at Female 05/21/2025 1:18 PM CDT Legal Sex Female 8:24 AM POT LINING SUPERVISOR Gender Identity Female 05/21/2025 1:18 PM [...] st Contact Info) Description 08/30/2025 11:00 AM POT LINING SUPERVISOR Office Visit [facility], [address] [address] Matthew Agustin MD 3 [place] [address] 12/26/2025 10:20 AM CDT Office Visit [facility] Pulmonology Specialty Clinic - [address] [place] [address] Sebastien Naik MD [address] [address] documented as of this encounter Visit Diagnoses Not on filedocumented in this encounter Care Teams Police Patrol Lieutenant Relationship Specialty Start Date End Date Qi Gabriel MD PCP - General FAMILY PRACTICE 01/11/23 03/21/23 Rosie Aguilera DO [address] [place] [address] PCP - General FAMILY PRACTICE 05/21/25 documented as of this encounter
--- OUTSIDE RECORDS SUMMARY | 2025-08-21 16:58 | XMS_ITS | Clinical Summary ---
Author Organization [facility] Address [address] [place] [address] Phone Care Team Providers Care Trap Puller Name Role Phone Unavailable Primary Care Provider [...] 1 Active fluticasone propionate (FLONASE) 50 mcg/spray [place], Suspension nasal inhaler Administer 2 Sprays in each nostril see administration instructions. 9 Active Insulin Pump Cartridge (Omnipod Dash 5 Pack Pod) Cartridge Inject 1 Packet by intramuscular injection see administration instructions. 0 Active flash glucose sensor (FreeStyle Ly 14 Day Sensor) Kit Inject 1 Device by intramuscular injection see administration instructions. 0 Active flash glucose scanning reader (FreeStyle Ly 14 Day [place]) Misc Take 1 Tablet by mouth see administration instructions. 0 Active Norgestimate-E thinyl estradiol (Wrr-Nb-Gqurtq ec) 0.18/0.215/0.2 5 mg-25 mcg tablet Take [...] on file Legal Sex Female 3:26 AM BUILDING INSULATION INSTALLER Gender Identity Not on file Sexual Orientation [...] STI screening follows ACOG guidelines(PB 168, 140, OYJ475). See individual assays for performing site location. [...] ADEQUACY: SEE COMMENT 02/03/2021 3:39 PM CDT [facility] Comment: Satisfactory for evaluation. Endocervical/transformation zone component absent. Age and/or menstrual status not provided PAP INTERP Negative for intraepithelial lesion or malignancy. 02/03/2021 3:39 PM CDT [facility] COMMENT This Pap test has been evaluated with computer assisted technology. 02/03/2021 3:39 PM CDT [facility] REAL ESTATE MANAGEMENT SPECIALIST: SEE COMMENT 2020 3:39 PM CDT [facility] Comment: MDG, CT(ASCP) CT screening location: [place] [address] [address] [facility] REVIEW REAL ESTATE MANAGEMENT SPECIALIST: SEE COMMENT 02/03/2021 3:39 PM CDT [facility] Comment: BEF, CT(ASCP) CT screening location: [place] [address] [address] BRIGIDO [facility] EXPLANATORY NOTE SEE COMMENT 3:39 PM CDT [facility] Comment: EXPLANATORY NOTE: The Pap [...] Detected Not Detected 02/03/2021 3:39 PM CDT [facility] Comment: Methodology: Guest Services Attendant-Mediated Amplification This assay detects E6/E7 viral messenger RNA (mRNA) from 14 high-risk HPV types (16,18,31,33,35,39,45,51,52,56,58,59,66,68). The analytical performance characteristics of this assay have been determined by [employer]. The modifications have not been cleared or approved by the FDA. This assay has been validated pursuant to the CLIA regulations and is used for clinical purposes. For additional information, please refer to http://education.Onaro.SoCloz/faq/IMY191w9 (This link if provided for information/ educational purposes only.) Genital SWAB OF ENDOCERVIX / Unknown Collection / Unknown 01/28/2021 3:14 PM CDT 01/28/2021 7:10 PM CDT Narrative [facility] - 02/03/2021 3:39 PM CDT Performing Organization Information: Site ID: [id number] Name: [facility] Address: [address] [address] Director: Manfred Mack D.O., MPH Site ID: [id number] [facility] Address: [address] [place] [address] Director: Cece Ross us Jerman Berg MD PATHOLOGY/CYTOLOGY ORDERABLES Fi nal Result [facility] [phone] * MAMMO SCREEN BILAT W OR WO [...] Assessment: Birads Category 1: Negative External Provider [facility] MAMMO ORDERABLES Final R esult from Last 3 Months or Most Recently Relevant to Health Maintenance Insurance BC EXCHANGE
--- OUTSIDE RECORDS SUMMARY | 2025-08-21 16:58 | XMS_ITS | Encounter Summary ---
Author Organization [facility] Address Count includes the [facility] [place] [address] Care Team Providers Care Publication Director Name Role Phone Rosie Aguilera Maylin CARCAMO Primary Care Provider [phone] Encounter Details Date Type Department Care Team (Late st Contact Info) Description 05/24/2023 MyChart Message Enc [facility] Medical Group Multispecialty Care - [place] [address] [address] [place] [address] [place] [address] [place] [address] 157 [place] [address] Ileana Social History Tobacco Use Types Packs/Day Years Used Date Smoking Tobacco: Never Smokeless Tobacco: Never Comments:Counseled by Dr Charisse vu. 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 AM SUPERVISOR ORNAMENTAL IRONWORKING Gender Identity Female 05/21/2025 1:18 PM CDT Sexual Orientation Not on file documented as of this encounter Plan of Treatment Upcoming Encounters Date Type Department Care Team (Late st Contact Info) Description 08/30/2025 11:00 AM SUPERVISOR ORNAMENTAL IRONWORKING Office Visit [facility] [facility], [place] [address] [place] [address] Matthew Agustin MD 3 [place] [address] 12/26/2025 10:20 AM CDT Office Visit [facility] Medical Group Pulmonology Specialty Clinic - [address] [place] [address] Sebastien Naik MD [address] [place] [address] documented as of this encounter Visit Diagnoses Not on filedocumented in this encounter Additional Health Concerns Assessment Noted Time PHQ-9 Depression Total Score: 8 05/21/20 23 1:09 PM CDT documented as of this encounter Care Teams Publication Director Relationship Specialty Start Date End Date Rosie Aguilera DO [address] [place] [address] PCP - General FAMILY PRACTICE 05/21/25 documented as of this encounter
--- OUTSIDE RECORDS SUMMARY | 2025-08-21 17:00 | XMS_ITS | Encounter Summary ---
Author Organization [facility] Address Formerly [facility] [place] [address] Care Team Providers Care Wash Tank Tender Name Role Phone Willy Rosie Carlisle DO Primary Care Provider [phone] Encounter Details Date Type Department Care Team (Latest Contact Info) Description 04/14/2023 MyChart Message Enc [facility] Medical Group Multispecialty Care - [place] [address] [address] [address] [place] [address] Sarthak Munguia MD [address] [place] [address] [address] [place] [address] Ozempic 0.25-0.5 Social History Tobacco Use Types Packs/Day Years Used Date Smoking Tobacco: Never Smokeless Tobacco: Never Comments No Sex and Gender Information Value Date Recorded Sex Assigned at Female 05/21/2025 1:18 PM CDT Legal Sex Female 8:24 AM SAP BUSINESS OBJECTS DEVELOPER Gender Identity Female 05/21/2025 1:18 PM CDT Sexual Orientation Not on file documented as of this encounter Plan of Treatment Upcoming Encounters Date Type Department Care Team (Late st Contact Info) Description 08/30/2025 11:00 AM SAP BUSINESS OBJECTS DEVELOPER Office Visit [facility] [facility], [place] [address] [place] [address] Matthew Agustin MD 3 [place] [address] 12/26/2025 10:20 AM CDT Office Visit [facility] Medical Group Pulmonology Specialty Clinic - [address] [place] [address] Sebastien Naik MD [address] [place] [address] documented as of this encounter Visit Diagnoses Not on filedocumented in this encounter Care Teams Wash Tank Tender Relationship Specialty Start Date End Date Rosie Aguilera DO [facility] [place] [address] PCP - General FAMILY PRACTICE 05/21/25 documented as of this encounter
--- OUTSIDE RECORDS SUMMARY | 2025-08-21 17:00 | XMS_ITS | Encounter Summary ---
Author Organization [facility] Address [address] [place] [address] Care Team Providers Care Senior Asic Engineer Name Role Phone Qi Gabriel MD Primary Care Pr ovidRosie Quick DO Primary Care Provider [phone] Encounter Details Date Type Department Care Team (Late st Contact Info) Description 01/28/2023 Glycomindst Message Enc [facility] Medical Group Multispecialty Care - [address] [place] [address] Qi Gabriel MD [id number] Social History Tobacco Use Types Packs/Day Years Used Date Smoking Tobacco: Never Smokeless Tobacco: Never Comments No Sex and Gender Information Value Date Recorded Sex Assigned at Female 05/21/2025 1:18 PM CDT Legal Sex Female 8:24 AM ELECTRODYNAMICIST Gender Identity Female 05/21/2025 1:18 PM CDT [...] st Contact Info) Description 08/30/2025 11:00 AM ELECTRODYNAMICIST Office Visit [facility] [facility], [place] [address] [place] [address] Matthew Agustin MD 3 [place] [address] 12/26/2025 10:20 AM CDT Office Visit [facility] Medical Group Pulmonology Specialty Clinic - [address] [place] [address] Sebastien Naik MD [address] [facility] [place] [facility] [address] documented as of this encounter Visit Diagnoses Not on filedocumented in this encounter Care Teams Senior Asic Engineer Relationship Specialty Start Date End Date Qi Gabriel MD PCP - General FAMILY PRACTICE 01/11/23 03/21/23 Rosie Aguilera DO [facility] [place] [address] PCP - General FAMILY PRACTICE 05/21/25 documented as of this encounter
--- OUTSIDE RECORDS SUMMARY | 2025-08-21 17:00 | XMS_ITS | Encounter Summary ---
Author Organization [facility] Address [address] [place] [address] Phone Care Team Providers Care Accounting Software Specialist Name Role Phone Rosie Aguilera DO Primary Care Provider [phone] Encounter Details Date Type Department Care Team (Late st Contact Info) Description 07/02/2025 Nursing Facility [facility] [place] [address] Zahraa Carreno, PATIENT SAFETY OFFICER, REGIONAL OPERATIONS DIRECTOR [address] [place] [address] Social History Tobacco Use Types Packs/Day Years Used Date Smoking Tobacco: Never Assessed Comments No Sex and Gender Information Value Date Recorded Sex Assigned at Not on file Legal Sex Female 12:09 PM CDT Gender Identity Not on file Sexual Orientation Not on file documented as of this encounter Progress Notes * Zahraa Carreno, PATIENT SAFETY OFFICER, REGIONAL OPERATIONS DIRECTOR - 07/02/2025 11:59 PM CDT [facility] PROGRESS NOTE Nelly J Petrona is a 49 y.o. female at [facility] for rehabilitation. Subjective: Interval History: I am seeing this resident for routine follow up encounter. Review of Systems: A 14 point comprehensive review of systems was negative except what is documented in interval history above. Objective: Exam: General: well developed well nourished, alert, oriented and in no acute distress Skin: normal coloration and turgor, no rashes HEENT: normocephalic, atraumatic. Pupils equal, round and reactive to light. Extraocular movements intact. Oronasopharynx pink and moist, no lesion or exudate. Neck: Supple. No JVD, lymphadenopathy thyromegaly or carotid bruits auscultated CVS: RRR, S1/S2 normal, no murmurs, gallops or rubs Chest: clear to auscultation, no wheezes, rales or rhonchi, symmetric air entry and normal respiratory effort Abdominal: large rt perineum wound with sutures intact with small opening with drainage, otherwise,soft, nontender, nondistended. Positive Bowel sounds, no organomegaly appreciated Extremities: no edema, no clubbing or cyanosis Neuro: alert and orient x 3. Moves all extremities well. No neurological deficits noted. Gait not tested Lab Results: none Imaging: none Assessment/Plan: Recent Necrotizing Fasciitis to Right Perineum Multiple Incision and drainage at [facility]. Sutures intact, found to have large volume of drainage from area. Sent to [facility] for CT A/P. Results noted and sent to her surgeon at [facility]. Pt to follow up in the office tomorrow at [facility] Continue local wound care DM type 2 A1C was > 11 during hospitalization at [facility] BS still running high in 200-300s Increased lantus insulin to 60 units and 20 unit with meals and continue sliding scale with insulin HTN/HLD Bp stable, continue antihypertensives CHUY Has not been using CPAP Morbid Obesity Wt 352lbs, encouraged diabetic low fat diet VTE Prophylaxis: activity By: Zahraa Carreno APRN, CNP, 07/03/2025 6:26 AM CDT documented in this encounter Plan of Treatment Not on file documented as of this encounter Visit Diagnoses Not on filedocumented in this encounter Care Teams Accounting Software Specialist Relationship Specialty Start Date End Date Rosie Aguilera DO [address] [place] [address] PCP - General Family Medicine 07/02/25 documented as of this encounter
--- OUTSIDE RECORDS SUMMARY | 2025-08-21 17:00 | XMS_ITS | Encounter Summary ---
Author Organization [facility] Address [facility]ly [facility] [place] [address] Care Team Providers Care Security Threat Analyst Name Role Phone Rosie Rivera DO Primary Care Provider [phone] Reason for Visit * Reason Onset Date Comments Medication Request 08/20/2025 Encounter Details Date Type Department Care Team (Late st Contact Info) Description 08/20/2025 Telephone [facility] Medical Group Family & Internal Medicine [address] [address] Rosie Rivera DO [address] [address] Medication Request Social History Tobacco Use Types Packs/Day Years [...] PM CDT Legal Sex Female 8:24 AM REVIEW TRAINER Gender Identity Female 05/21/2025 1:18 PM CDT Sexual Orientation Not on file documented as of this encounter Progress Notes * Graciela Downey MA - 08/20/2025 4:00 PM CST Refill request received from Patient Last visit with ROSIE RIVERA in FAMILY PRACTICE was on: 08/06/2025 in [facility] Future Appointments Date Time Provider Department Center 08/30/2025 11:00 AM [facility] 10:20 AM Sebastien Naik MD [facility]GP[facility] [id number] Prescription request responded to early today from a MyChart message from patient. [id number] - [place], [place] - [address] [place] [address] [place] [facility] [address] [facility] - [place], [place] - [address] [facility] [address] [facility] [address] Medications - Current, Listed Continuously[1] [1] Current Outpatient Medications: Acetaminophen 500 MG Cap, Take 1,000 mg by mouth 3 (three) times daily., Disp: , Rfl: amLODIPine (NORVASC) 10 MG tablet, Take 1 tablet (10 mg total) by mouth daily., Disp: , Rfl: apixaban (ELIQUIS) 5 MG tablet, Take 1 tablet (5 mg total) by mouth 2 (two) times daily., Disp: , Rfl: atorvastatin (LIPITOR) 40 MG tablet, Take 1 tablet (40 mg total) by mouth nightly at bedtime., Disp: 30 tablet, Rfl: 3 buPROPion XL (WELLBUTRIN XL) 150 MG 24 hr tablet, TAKE 1 TABLET(150 MG) BY MOUTH EVERY MORNING, Disp: 90 tablet, Rfl: 0 doxycycline monohydrate 100 MG capsule, Take 1 capsule (100 mg total) by mouth daily., Disp: , Rfl: Drospirenone (SLYND) 4 MG Tab, Take 4 mg by mouth daily., Disp: , Rfl: estradiol (CLIMARA) 0.05 MG/24HR, Place 1 patch (0.05 mg total) onto the skin once a week., Disp: ,Rfl: estradiol (VIVELLE-DOT) 0.05 MG/24HR patch, Place 1 patch (0.05 mg total) onto the skin twice a week., Disp: , Rfl: fluticasone propionate (FLONASE) 50 MCG/ACT nasal spray, 1 spray by Nasal route., Disp: , Rfl: gabapentin (NEURONTIN) 300 MG capsule, Take 1 capsule (300 mg total) by mouth 3 (three) times daily., Disp: , Rfl: gabapentin (NEURONTIN) 300 MG capsule, Take 1 capsule (300 mg total) by mouth 3 (three) times daily., Disp: 90 capsule, Rfl: 2 insulin glargine (LANTUS SOLOSTAR) 100 UNIT/ML injection (PEN), Inject 28 Units into the skin nightly at bedtime. (Patient taking differently: Inject 47 Units into the skin nightly at bedtime. 35 before breakfast 37 at night), Disp: 15 mL, Rfl: 1 insulin lispro, 1 Unit Dial, (HUMALOG) 100 UNIT/ML injection (PEN), Inject 18 Units into the skin 3(three) times daily. Plus sliding scale, Disp: 48.6 mL, Rfl: 1 lisinopril (PRINIVIL) 30 MG tablet, Take 1 tablet (30 mg total) by mouth daily., Disp: , Rfl: nystatin (MYCOSTATIN) powder, Apply topically 2 (two) times daily., Disp: 30 g, Rfl: 0 oxyCODONE immediate release (ROXICODONE) 5 MG immediate release tablet, , Disp: , Rfl: ramelteon (ROZEREM) 8 MG tablet, Take 1 tablet (8 mg total) by mouth daily., Disp: 30 tablet, Rfl: 2 semaglutide (OZEMPIC, 0.25 OR 0.5 MG/DOSE,) 2 MG/3ML injection (PEN), Inject 0.25 mg into the skin every 7 days. Indications: Diabetes, Disp: 3 Pen, Rfl: 3 Venlafaxine HCl (VENLAFAXINE XR) 75 MG TABLET SR 24 HR 24 hr tablet, Take 75 mg by mouth daily., Disp: , Rfl: venlafaxine XR (EFFEXOR-XR) 75 MG 24 hr capsule, Take 1 capsule (75 mg total) by mouth daily., Disp: , Rfl: EW TRAINER * Pia Sow - 08/20/2025 9:55 AM CST Refill request received from Patient Medication: insulin lispro, 1 Unit Dial, (HUMALOG) 100 UNIT/ML injection (PEN) Pharmacy: [id number] - [place] - [address] [place] Last visit with ROSIE RIVERA in FAMILY PRACTICE was on: 08/06/2025 in [facility] Future Appointments Date Time Provider Department Center 08/30/2025 11:00 AM [facility] 10:20 AM Sebastien Naik MD [id number] Patient said she only has 1 pen left please advise. EW TRAINER documented in this encounter Plan of Treatment Upcoming Encounters Date Type Department Care Team (Late st Contact Info) Description 08/30/2025 11:00 AM REVIEW TRAINER Office Visit [facility], [address] [address] Matthew Agustin MD 3 [place] [address] 12/26/2025 10:20 AM CDT Office Visit [facility] Medical Group Pulmonology Specialty Clinic - [address] [place] [address] Sebastien Naik MD [address] [address] documented as of this encounter Visit Diagnoses Not on filedocumented in this encounter Additional Health Concerns Assessment Noted Time PHQ-9 Depression Total Score: 8 05/21/20 23 1:09 PM CDT documented as of this encounter Care Teams Security Threat Analyst Relationship Specialty Start Date End Date Rosie Rivera DO [address] [place] [address] PCP - General FAMILY PRACTICE 05/21/25 documented as of this encounter
--- OUTSIDE RECORDS SUMMARY | 2025-08-21 17:00 | XMS_ITS | Encounter Summary ---
Author Organization [facility] Address [facility] [place] [address] Care Team Providers Care Central Office Maintainer Name Role Phone Rosie Aguilera DO Primary Care Provider [phone] Reason for Visit * Reason Onset Date Comments Lab Results 08/21/2025 Encounter Details Date Type Department Care Team (Late st Contact Info) Description 08/21/2025 Telephone [facility] Medical Group Family & Internal Medicine [address] [address] Rosie Aguilera DO [address] [address] Lab Results Social History Tobacco Use Types [...] Progress Notes * Graciela Downey MA - 08/21/2025 3:52 PM CST Labs where received from [facility] for a Anaerobic Bacteria w/Gram stain culture from her wound. Samplewas taken by LUANN. Results shown to Dr. Aguilera. Per Dr. Aguilera, pt is to go to ED results came back as MRSA. Spoke with patient and advised of results and Dr. Aguilera's advise. Pt was agreeable and will go to the ED. SSIONS GATE ATTENDANT documented in this encounter Plan of Treatment Upcoming Encounters Date Type Department Care Team (Late st Contact Info) Description 08/30/2025 11:00 AM ADMISSIONS GATE ATTENDANT Office Visit [facility] [place] [address] [place] [address] Matthew Agustin MD 3 [place] [address] 12/26/2025 10:20 AM CDT Office Visit [facility] Medical Group Pulmonology Specialty Clinic - [address] [place] [address] Sebastien Naik MD 3 [facility] [place] [address] [place] [address] documented as of this encounter Visit Diagnoses Not on filedocumented in this encounter Additional Health Concerns Assessment Noted Time PHQ-9 Depression Total Score: 8 05/21/20 23 1:09 PM CDT documented as of this encounter Care Teams Central Office Maintainer Relationship Specialty Start Date End Date Rosie Aguilera DO [address] [place] [address] PCP - General FAMILY PRACTICE 05/21/25 documented as of this encounter
--- OUTSIDE RECORDS SUMMARY | 2025-08-21 17:00 | XMS_ITS | Encounter Summary ---
Author Organization [facility] Address [address] [place] [address] Care Team Providers Care Youth Associate Name Role Phone Rosie Aguilera DO Primary Care Provider [phone] Encounter Details Date Type Department Care Team (Late Contact Info) Description 05/25/2025 MyChart Message Enc [facility] Medical Group Family & Internal Medicine [address] [phone] Rosie Aguilera DO 3 [facility]. 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 Gender Identity Female 05/21/2025 1:18 PM CDT Sexual Orientation Not on file documented as of this encounter Plan of Treatment Upcoming Encounters Date Type Department Care Team (Late st Contact Info) Description 08/30/2025 11:00 AM AIRPLANE PILOT COMMERCIAL Office Visit [facility] [address] [place], [place] [id number] Matthew Agustin MD 3 [place] [address] 12/26/2025 10:20 AM CDT Office Visit [facility] Medical Group Pulmonology Specialty Clinic - [address] [place] [address] Sebastien Naik MD 3 [facility] [place] [address] [place] [address] documented as of this encounter Visit Diagnoses Not on filedocumented in this encounter Additional Health Concerns Assessment Noted Time PHQ-9 Depression Total Score: 8 05/21/20 23 1:09 PM CDT documented as of this encounter Care Teams Youth Associate Relationship Specialty Start Date End Date Rosie Aguilera DO [address] [place] [address] PCP - General FAMILY PRACTICE 05/21/25 documented as of this encounter
--- OUTSIDE RECORDS SUMMARY | 2025-08-21 17:00 | XMS_ITS | Clinical Summary ---
Author Organization [facility] Address Formerly [facility] [place] [address] Care Team Providers Care Business Analysis Specialist Name Role Phone Rosie Aguilera DO Primary Care Provider [phone] Allergies Active Allergy Reactions Criticality Noted Date Comments Seasonal Runny Nose 05/21/2025 Medications insulin glargine (LANTUS SOLOSTAR) 100 UNIT/ML injection (PEN)Indicati ons:Type 2 diabetes mellitus with hyperglycemia , with long-term current use of insulin ([facility]) Inject 28 Units into the skin nightly at bedtime. 15 mL 1 024 Active Additional Information Patient taking differently: 47 UnitsSubcutaneous Nightly at bedtime, 35 before at night, Reported on 08/06/2025 buPROPion XL (WELLBUTRIN XL) 150 MG 24 hr tabletIndicat ions:Anxiety, Episode of recurrent major depressive disorder, unspecified depression [...] Take 4 mg by mouth daily. Active atorvastatin (LIPITOR) 40 MG tabletIndicat ions:Dyslipid emia Take 1 tablet (40 mg total) by mouth nightly at bedtime. 30 tablet 3 025 Active estradiol (VIVELLE-DOT) 0.05 MG/24HR patch Place 1 patch (0.05 mg total) onto the skin twice a week. Active nystatin (MYCOSTATIN) powderIndicat ions:Intertri go Apply topically 2 (two) times daily. 30 g Active apixaban (ELIQUIS) 5 MG tablet Take 1 tablet (5 mg total) by mouth 2 (two) times daily. 2024 Active gabapentin (NEURONTIN) 300 MG capsule Take 1 capsule (300 mg total) by mouth 3 (three) times daily. Active fluticasone propionate (FLONASE) 50 MCG/ACT nasal spray 1 spray by Nasal route. Active lisinopril (PRINIVIL) 30 MG tablet Take 1 tablet (30 mg total) by mouth daily. 2024 Active oxyCODONE immediate release (ROXICODONE) 5 MG immediate release tablet Active doxycycline monohydrate 100 MG capsule Take 1 capsule (100 mg total) by mouth daily. Active Acetaminophen 500 MG Cap Take 1,000 mg by mouth 3 (three) times daily. Active estradiol (CLIMARA) 0.05 MG/24HR Place 1 patch (0.05 mg total) onto the skin once a week. Active Venlafaxine HCl (VENLAFAXINE XR) 75 MG TABLET SR 24 HR 24 hr tablet Take 75 mg by mouth daily. Active semaglutide (OZEMPIC, 0.25 OR 0.5 MG/DOSE,) 2 MG/3ML injection (PEN)Indicati ons:Diabetes Mellitus Inject 0.25 mg into the skin every 7 days. Indications: Diabetes 3 Pen 3 Active gabapentin (NEURONTIN) 300 MG capsuleIndica tions:Wound pain Take 1 capsule (300 mg total) by mouth 3 (three) times daily. 90 capsule 2 Active ramelteon (ROZEREM) 8 MG tabletIndicat ions:Insomnia , unspecified type Take 1 tablet (8 mg total) by mouth daily. 30 tablet 2 Active insulin lispro, 1 Unit Dial, (HUMALOG) 100 UNIT/ML injection (PEN)Indicati ons:Type 2 diabetes mellitus with hyperglycemia , with long-term current use of insulin ([facility] HHS/HCC) Inject 18 Units into the skin 3 (three) times daily. Plus sliding scale 48.6 mL 1 025 Active insulin lispro, 1 Unit Dial, (HUMALOG) 100 UNIT/ML injection (PEN)Indicati ons:Type 2 diabetes mellitus with hyperglycemia , with long-term current use of insulin ([facility] HHS/HCC) Inject 6 Units into the skin 3 (three) times daily before meals. 9 mL 5 024 2024 Discontinued(D ose adjustment) pravastatin (PRAVACHOL) 40 MG tabletIndicat ions:Type 2 diabetes mellitus with hyperglycemia , with long-term current use of insulin ([facility] HHS/HCC),Hype rlipidemia associated with type 2 diabetes mellitus ([facility] HHS/HCC) TAKE 1 TABLET(40 MG) BY MOUTH EVERY NIGHT AT BEDTIME 90 tablet 1 024 2024 Discontinued(D ose adjustment) lisinopril-hy droCHLOROthia zide (ZESTORETIC) 20-25 MG tabletIndicat ions:Type 2 diabetes mellitus with hyperglycemia , with long-term current use of insulin ([facility] HHS/HCC),Hype rtension associated with type 2 diabetes mellitus ([facility] HHS/HCC) take 1 tablet by mouth daily 90 tablet 024 2024 Discontinued(D ose adjustment) empagliflozin (JARDIANCE) 10 MG tabletIndicat ions:Type 2 diabetes mellitus with hyperglycemia , with long-term current use of insulin ([facility] HHS/H[facility]) Take 1 tablet (10 mg total) by mouth daily. 30 tablet 2 2024 Discontinued ramelteon (ROZEREM) 8 MG tablet Take 1 tablet (8 mg total) by mouth daily. 025 2024 Discontinued(R eorder) insulin lispro, 1 Unit Dial, (HUMALOG) 100 UNIT/ML injection (PEN) Inject 18 Units into the skin 3 (three) times daily. 2024 Discontinued(R eorder) Active Problems Problem Noted Date Diagnosed Date [...] Papanicolaou smear 04/06/2017 Type 2 diabetes mellitus 04/06/2017 Overview (01/28/2023): Last Assessment & Plan: A1c [...] Encounters Date Type Department Care Team Description 08/21/2025 Telephone [facility] Family Internal [address] [phone] Rosie Aguilera, DO Lab Results 08/20/[address] [phone] Rosie Aguilera, DO Medication Request 08/17/[address] [phone] Rosie Aguilera, DO Information 08/07/2025 Telephone [facility] Internal [address] [phone] Rosie Aguilera, DO Prior Authorization (Ramelteon 8 mg tablets) 08/07/2025 Joosyhart Message Enc [address] [phone] Rosie Aguilera, DO Pain Meds for my Post Surgery Wound 08/06/2025 1:20 PM CDT Office Visit [facility] Internal [address] [phone] Rosie Aguilera, DO TCM (Pt is here for f/u from [facility] d/c on 07/25/25 for cellulitis. Previous admitted to [facility] from [place] for Necrotizing Fasciitis, then placed at [facility] in [place]. Pt does have home health coming to her house now. /Pt was dx with new onset of Afib while at [facility] and has an appt with [facility] on 08/30/25/) 08/06/2025 Travel 08/03/2025 Scan HEALTH INFO SRVCS Scanned, [facility] 08/01/2025 Telephone [facility] [address] [address] Malissa Alonso, RMA Consult 07/31/2025 Telephone [facility] Family Internal [address] [phone] Rosie Aguilera, DO Medication 07/26/2025 Orders Only [address] [phone] Rosie Aguilera, 07/26/2025 MyChart Message Enc [facility] [address] [phone] [place], [facility] Provider cardiology 07/25/2025 Telephone [facility] [address] [phone] Rosie Aguilera, Information 07/25/2025 MyChart Message Enc [address] [phone] Rosie Aguilera, A Referral for a Alcohol And Drug Counselor 07/16/2025 MyChart Message Enc [facility] [address] [phone] Rosie Aguilera, Admitted to [facility] 07/10/[address] [phone] Rosie Aguilera, Information 07/05/[address] [phone] Rosie Aguilera, DO Medication Request 07/05/2025 Scan HEALTH INFO SRVCS Scanned, [facility] 07/04/2025 MyChart Message Enc [facility] Family & Internal [phone] [place] [address] Rosie Aguilera, DO My Blood Sugars 07/02/2025 Telephone [facility] [address] [phone] Rosie Aguilera, DO Information 06/25/2025 MyChart Message Enc [facility] Family Internal [address] [phone] Rosie Aguilera, DO My hospital records 06/11/2025 MyChart Message Enc [facility] [address] [place] [address] Sebastien Naik MD CPAP Machine 06/11/2025 Telephone [facility] [address] [phone] Rosie Aguilera, DO Information 06/07/2025 MyChart Message Enc [facility] [address] [phone] Rosie Aguilera, DO URGENT PRIOR AUTHORIZATION For OMNIPOD 06/03/2025 MyChart Message Enc [facility] [address] [phone] Rosie Aguilera, DO Abcess-Yeast Infection Visit on 06-01-25 06/01/2025 8:20 AM CDT Office Visit [facility] [address] [phone] Rosie Aguilera, DO Abscess (Pt is here today for a painful abscess on upper right inner thigh. Painful to walk. ) 06/01/2025 Abstract [facility] BUSINESS OFFICE [address] [place] [address] Delilah Hunt MA 06/01/2025 MyChart Message Enc [facility] [address] [phone] Rosie Aguilera, DO Abcess 06/01/2025 Travel 05/31/[address] [phone] Rosie Aguilera, DO Advice (Nurse Triage - After Hours ([id number])/) 05/25/2025 Scan Auramist INFO SRVCS Scanned, [facility] 05/25/[address] [phone] Rosie Aguilera, DO Derm Problem 05/25/2025 MyChart Message Enc [address] [phone] Rosie Aguilera, DO [facility] 05/22/2025 MyChart Message Enc [facility] [address] [phone] Rosie Aguilera, DO Atorvastatin 05/22/2025 Results Follow-Up [address] [phone] Rosie Aguilera, LIPID PANEL, BASIC METABOLIC PANEL, ALBUMIN URINE RANDOM W/CREATININE 05/21/2025 1:00 PM CDT Office Visit [facility] [address] [phone] Rosie Aguilera, DO Meet and Greet Provider (P{t is here today for establish PCP. ); Hypertension; Hyperlipidemia; Diabetes 05/21/2025 Travel from Last 3 Months Immunizations Immunization Administration [...] PM CDT Legal Sex Female 8:24 AM [facility] Gender Identity Female 05/21/2025 1:18 PM CDT Sexual Orientation Not on file Last Filed Vital Signs Vital Sign Reading Time Taken Comments Blood Pressure 108/60 08/06/2025 1:27 PM CDT Pulse 91 08/06/2025 1:27 PM CDT Temperature 36.3 C (97.3 F) 08/06/2025 1:27 PM CDT Respiratory Rate 16 08/06/2025 1:27 PM CDT Oxygen Saturation 97% 08/06/2025 1:27 PM CDT Inhaled Oxygen Concentration - - Weight 160.3 kg (353 lb 6.4 oz) 08/06/2025 1:27 PM CDT Height 154.9 cm (5' 1) 08/06/2025 1:27 PM CDT Body Mass Index 66.77 08/06/2025 1:27 PM CDT Plan of Treatment Upcoming Encounters Date Type Department Care Team (Late st Contact Info) Description 08/30/2025 11:00 AM [facility] Office Visit [facility] [address] [place] [address] Matthew Agustin MD 3 [facility] [address] 12/26/2025 10:20 AM CDT Office Visit [facility] - [address] [place] [address] Sebastien Naik MD 3 [facility] [address] [place], [place] [phone] Health Maintenance Due Date Last Done Comments Diabetes: Retinopathy Eye Exam 1995 Cervical Cancer Screening Pap Smear (Age 30 to 64) Every 3 Years 01/29/2024 01/28/2021 Annual Physical 05/21/2024 05/21/2023 COVID-19 Vaccine ( season) 2025 Hemoglobin A1C 09/05/2025 06/05/2025, 080 01/2025, 06/27/2024, Additional history exists Cervical Cancer Screening Pap with HPV Testing (Age 30 to 64) Every 5 Years 01/28/2026 01/28/2021 Cervical Cancer Screening with HPV 01/28/2026 Hepatitis B Vaccines (1 of 3 - 19+ 3-dose series) 05/21/2026 Postponed from 1996 (Patient/Guardian Refusal) Kidney Health Evaluation 05/21/2026 05/21/2025 Lipid Panel 05/21/2026 05/21/2025, 09/0 03/2023, 01/11/2023 Mammogram Screening 05/21/2026 04/09/2023, 03/03/2023, 11/14/2021, Additional history exists Postponed from 04/09/2025 (Patient Refused) Pneumococcal Vaccine: Pediatrics (0 to 5 Years) and At-Risk Patients (6 to 49 Years) (1 of 2 - PCV) 05/21/2026 Postponed from 1996 (Patient Refused) Influenza Adult (#1) 2026 07/26/2019, 07/21/2018, 10/18/2016, Additional history exists Postponed from 07/18/2025 (Patient Refused) Colorectal Cancer Screening FIT-DNA (3 Years) 05/28/2028 05/28/2025, 05/28/2025 DTaP, Tdap and Td Vaccines (2 - Td or Tdap) 07/26/2029 07/26/2019 Hepatitis C Completed 08/23/2023 PHQ-2 (Physician [place]) Completed 05/21/2025 Hepatitis A Vaccines Aged Out No long er eligible based on patient's age to complete this topic Meningococcal B Vaccine Aged Out No l onger eligible based on patient's age to complete this topic Meningococcal Vaccine Aged Out No dyan john eligible based on patient's age to complete this topic RSV Immunizations Under 20 Months Aged Out No longer eligible based on patient's age to complete this topic Procedures Procedure Name Priority Date/Time Associated Diagnosis Comments WHITNEY (EXACT SCIENCE) Routine 05/28/2025 7:10 AM CDT Colon cancer screening ALBUMIN URINE RANDOM W/CREATININE Routine 05/21/2025 4:21 PM CDT Type 2 diabetes mellitus with hyperglycemia, with long-term current use of insulin ([facility]) Essential hypertension BASIC METABOLIC PANEL Routine 05/21/2025 2:27 PM CDT Type 2 diabetes mellitus with hyperglycemia, with long-term current use of insulin ([facility]) Essential hypertension LIPID PANEL Routine 05/21/2025 2:27 PM CDT Hyperlipidemia, unspecified hyperlipidemia type COLLECTION VENOUS BLOOD VENIPUNCTURE Routine 05/21/2025 2:20 PM CDT Type 2 diabetes mellitus with hyperglycemia, with long-term current use of insulin (CMS/HCC HHS/HCC) Essential hypertension Hyperlipidemia, unspecified hyperlipidemia type COLLECT.CAPILLARY (FNGR,HEEL,EAR) Routine 05/21/2025 1:10 PM CDT Type 2 diabetes mellitus with hyperglycemia, with long-term current use of insulin (CMS/HCC HHS/HCC) HEMOGLOBIN, GLYCOSYLATED Routine 05/21/2025 HEPATITIS C ANTIBODY 08/23/2023 10:05 AM [facility] MG DIAG W JOE LT DIGI Routine 04/09/2023 1:25 PM CDT Abnormal mammogram from Last 3 Months or Most Recently Relevant to Health Maintenance Results * COLOGUARD (EXACT SCIENCE) (05/28/2025 7:10 AM CDT) COLOGUARD RESULT Negative Negative [employer] (CLIA #:[id number]) Comment: The Cologuard (TM) test was performed on this specimen. NEGATIVE TEST RESULT. A negative Cologuard result indicates a low likelihood that a colorectal cancer (CRC) or advanced adenoma (adenomatous polyps with more advanced pre-malignant features) is present. The chance that a person with a negative Cologuard test has a colorectal cancer is less than 1 in 1500 (negative predictive value >99.9%) or has an advanced adenoma is less than 5.3% (negative predictive value 94.7%). These data are based on a prospective cross-sectional study of 10,000 individuals at average risk for colorectal cancer who were screened with both Cologuard and colonoscopy. (Becca Hankins al, N Engl J Med 2014;370(14):1286- 1297) The normal value (reference range) for this assay is negative. COLOGUARD RE-SCREENING RECOMMENDATION: Periodic colorectal cancer screening is an important part of preventive healthcare for asymptomatic individuals at average risk for colorectal cancer. Following a negative Cologuard result, the [place] [employer] Society and U.S. Multi-Society Task Force screening guidelines recommend a Cologuard re-screening interval of 3 years. References: [place] [employer] Guideline for Colorectal Cancer Screening: https://www.cancer.org/cancer/topbq-twndtv-tjqgbc/cufrovklt-rbuaetbov-tspjsmm/ac s-rec ommendations.html.; Derek DK, Justin CR, Darrel ContrerasK, Colorectal Cancer Screening: Recommendations for Physicians and Patients from the U.S. Multi-Society Task Force on Colorectal Cancer Screening , Am J Gastroenterology 2017; 112:1489-8990. TEST DESCRIPTION: Composite algorithmic analysis of stool DNA-biomarkers with hemoglobin immunoassay. Quantitative values of individual biomarkers are not reportable and are not associated with individual biomarker result reference ranges. Cologuard is intended for colorectal cancer screening of adults of either sex, 45 years or older, who are at average-risk for colorectal cancer (CRC). Cologuard has been approved for use by the U.S. FDA. The performance of Cologuard was established in a cross sectional study of average-risk adults aged 50-84. Cologuard performance in patients ages 45 to 49 years was estimated by sub-group analysis of near-age groups. Colonoscopies performed for a positive result may find as the most clinically significant lesion: colorectal cancer [4.0%], advanced adenoma (including sessile serrated polyps greater than or equal to 1cm diameter) [20%] or non- advanced adenoma [31%]; or no colorectal neoplasia [45%]. These estimates are derived from a prospective cross-sectional screening study of 10,000 individuals at average risk for colorectal cancer who were screened with both Cologuard and colonoscopy. (Becca Hankins al, N Engl J Med 2014;370(14):2481-2796.) Cologuard may produce a false negative or false positive result (no colorectal cancer or precancerous polyp present at colonoscopy follow up). A negative Cologuard test result does not guarantee the absence of CRC or advanced adenoma (pre-cancer). The current Cologuard screening interval is every 3 years. ([place] [employer] and U.S. Multi-Society Task Force). Cologuard performance data in a 10,000 patient pivotal study using colonoscopy as the reference method can be accessed at the following location: www.[employer].CityPockets/results. Additional description of the Cologuard test process, warnings and precautions can be found at www.[employer].com. STOOL STOOL SPECIMEN / Unknown 05/28/2025 7:10 AM CDT 05/29/2025 10:01 AM CDT us Rosie Aguilera DO BODY FLUIDS AND STOOLS ORDERABL ES Final Result [employer] [employer] [address] [place] [address], [place] [phone] [employer] (CLIA #:[id number]) [address] [place] [address] * (ABNORMAL) ALBUMIN URINE RANDOM W/CREATININE (05/21/2025 4:21 PM CDT) MICROALBUMIN (U) 23.3(H) <20 MG/L 05/22/20 10:04 AM CDT [facility] CREATININE RANDOM (U) 127.5 MG/DL 05/22/2025 10:04 AM CDT [facility] ALBUMIN/CREAT RATIO 18.3 <30 MG/G 05/22/2025 10:04 AM CDT [facility] URINE SPECIMEN / Unknown 05/21/2025 4:21 PM CDT us Rosie Aguilera DO URINE ORDERABLES Final Result Performing Organization Address [facility] de Phone Number [facility] [address] [place] [address], [place] [phone] * (ABNORMAL) BASIC METABOLIC PANEL (05/21/2025 2:27 PM CDT) SODIUM S/P/B 139 136 - 145 MMOL/L 05/22/2025 10:07 AM CDT [facility] POTASSIUM S/P/B 4.9 3.5 - 5.1 MMOL/L 05/22/2025 10:07 AM CDT [facility] CHLORIDE S/P/B 100 98 - 107 MMOL/L 05/22/2025 10:[address] [facility] CO2 25.7 21 - 32 MMOL/L 05/22/2025 10:[address] [facility] GLUCOSE 216(H) 70 - 99 MG/DL 05/22/2025 10:[address] [facility] BUN 25(H) 7 - 18 MG/DL 05/22/2025 10:[address] [facility] CREATININE S/P/B 0.84 0.55 - 1.02 MG/DL 05/22/2025 10:[address] [facility] CALCIUM S/P/B 10.0 8.4 - 10.5 MG/DL 05/22/2025 10:[address] [facility] ANION GAP 13.3 5 - 15 MMOL/L 05/22/2025 10:[address] [facility] Comment:REFERENCE RANGE NOT ESTABLISHED OSMOLALITY (CALC) 299 MOSM/KG 025 10:[address] [facility] Comment:REFERENCE RANGE NOT ESTABLISHED GFR ESTIMATE 86(L) >90 ML/MIN/1. 73 M2 05/22/2025 10:[address] [facility] GFR NOTES GFR REFERENCE S: 05/22/2025 10:[address] [facility] Comment: THE ESTIMATED GFR IS [...] CDT Rosie Aguilera DO LABORATORY Final Result [facility] [address] [place] [address], [place] [phone] * (ABNORMAL) LIPID PANEL (05/21/2025 2:27 PM CDT) CHOLESTEROL 235(H) <200 MG/DL 05/22/2025 10:07 AM CDT [facility] TRIGLYCERIDES 249(H) <150 MG/DL 05/22/2025 10:07 AM CDT [facility] HDL 71 >40 MG/DL 05/22/2025 10:07 AM CDT [facility] LDL-C 114(H) <100 MG/DL 05/22/2025 10:07 AM CDT [facility] VLDL CALCULATION 50(H) 5 - 28 MG/DL 05/22/2025 10:07 AM CDT [facility] CHOL/HDL RATIO 3.3 0.0 - 4.0 05/22/2025 10:07 AM CDT [facility] LDL/HDL 1.6 0.41 - 2.13 05/22/2025 10:07 AM CDT [facility] NON HDL CHOLESTEROL 164(H) <140 MG/DL 05/22/2025 10:07 AM CDT [facility] 05/21/2025 2:27 PM CDT us Rosie Aguilera DO LABORATORY Final Result [facility] [address] [place] [address], [place] [phone] * HEMOGLOBIN, GLYCOSYLATED (05/21/2025) HGB A1C 10.7 % 05/21/2025 us [facility] Abstract LABORATORY Final Res ult * HEPATITIS C ANTIBODY (08/23/2023 10:05 AM [facility]) HEPATITIS C AB Non Reactive Non Reacti [facility] 1 Comment: HCV antibody alone does not differentiate between previously resolved infection and active infection. Equivocal and Reactive HCV antibody results should be followed up with an HCV RNA test to support the diagnosis of active HCV infection. 08/23/2023 10:0 5 AM [facility] 08/23/2023 Narrative [facility] - 08/24/2023 5:08 AM [facility] Performed at: [address] [place] [id number] [employer] Adminstrator: Maninder Saenz PhD, Phone: [phone] us Sarthak Munguia MD LABORATORY Final Result Performing Organization Address City/State/[facility] Co de Phone Number [facility] [address] [phone] [facility] 1 * MG DIAG W JOE LT DIGI (04/09/2023 1:25 PM CDT) Anatomical Region Laterality Modality Breast Left Mammography 04/09/2023 3:05 PM CDT Narrative 04/09/2023 3:12 PM CDT EXAMINATION: Digital left diagnostic mammogram with 3-D tomography and left breast ultrasound [id number] EXAM DATE/TIME: 04/09/2023 1:25 PM REASON FOR [...] 6 months. Right COMMENTS: Ordered By: PAYAL WREN Interpreted By: Jose Ramon Duque MD, 04/09/2023 3:05 PM Payal Wren MD MAMMO Final Result from Last 3 Months or Most Recently Relevant to Health Maintenance Insurance Dr [facility] [address] Care Teams Business Analysis Specialist Relationship Specialty Start Date End Date Rosie Aguilera DO [address] [place] [id number] PCP - General FAMILY PRACTICE 05/21/25
--- OUTSIDE RECORDS SUMMARY | 2025-08-21 17:00 | XMS_ITS | Encounter Summary ---
Author Organization [facility] Address [address] [place] [id number] Care Team Providers Care Special Machine Operator Name Role Phone Rosie Aguilera Primary Care Provider [phone] Encounter Details Date Type Department Care Team (Latest Contact Info) Description 06/27/2024 Scan [facility] Scanned, Doc Med [facility] Social History Tobacco Use Types Packs/Day Years Used Date Smoking Tobacco: Never Smokeless Tobacco: Never Comments:Counseled by Dr Charisse vu. PHQ-2 Answer Date Recorded Patient Health Questionnaire-2 Score 1 05/21/2025 Comments No Sex and Gender Information Value Date Recorded Sex Assigned at Female 05/21/2025 1:18 PM CDT Legal Sex Female 8:24 AM PORTAL ADMINISTRATOR Gender Identity Female 05/21/2025 1:18 PM CDT Sexual Orientation Not on file documented as of this encounter Functional Status * Over the past 2 weeks, how often have you been bothered by any of the following problems? Question Answer Date of Assessment Author Status Little interest or pleasure in doing things Several days 05/21/2025 1:19 PM CDT Graciela Downey MA Activ e Feeling down, depressed, or hopeless Not at all 05/21/2025 1:19 PM CDT Graciela Downey M A Active Patient Health Questionnaire-2 Score 1 05/21/2025 1:19 PM CDT Graciela Downey MA Active documented as of this encounter Plan of Treatment Upcoming Encounters Date Type Department Care Team (Late Contact Info) Description 08/30/2025 11:00 AM PORTAL ADMINISTRATOR Office Visit [facility], [facility] [address] [place] [address] Matthew Agustin MD 3 [place] [address] 12/26/2025 10:20 AM CDT Office Visit [facility] - [address] [place] [address] Sebastien Naik MD 3 [facility] [address] [place] [address] documented as of this encounter Visit Diagnoses Not on filedocumented in this encounter Additional Health Concerns Assessment Noted Time PHQ-9 Depression Total Score: 8 05/21/20 23 1:09 PM CDT documented as of this encounter Care Teams Special Machine Operator Relationship Specialty Start Date End Date Rosie Aguilera DO [address] [place] [id number] PCP - General FAMILY PRACTICE 05/21/25 documented as of this encounter
--- OUTSIDE RECORDS SUMMARY | 2025-08-21 17:00 | XMS_ITS | Encounter Summary ---
Author Organization [facility] Address [address] [place] [address] Care Team Providers Care Plant Science Professor Name Role Phone Qi Gabriel MD Primary Care Pr ovidRosie Quick DO Primary Care Provider [phone] Encounter Details Date Type Department Care Team (Late st Contact Info) Description 01/28/2023 ValuNett Message Enc [facility] Multispecialty Care - [address] [place] [address] Qi Gabriel MD Diarrhea/abdominal cramping Social History Tobacco Use Types Packs/Day Years Used Date Smoking Tobacco: Never Smokeless Tobacco: Never Comments No Sex and Gender Information Value Date Recorded Sex Assigned at Female 05/21/2025 1:18 PM CDT Legal Sex Female 8:24 AM HOGSHEAD INSPECTOR Gender Identity Female 05/21/2025 1:18 PM CDT [...] st Contact Info) Description 08/30/2025 11:00 AM HOGSHEAD INSPECTOR Office Visit [facility], [address] [address] Matthew Agustin MD 3 [place] [address] 12/26/2025 10:20 AM CDT Office Visit [facility] - [address] [place] [address] Sebastien Naik MD [address] [address] documented as of this encounter Visit Diagnoses Not on filedocumented in this encounter Care Teams Plant Science Professor Relationship Specialty Start Date End Date Qi Gabriel MD PCP - General FAMILY PRACTICE 01/11/23 03/21/23 Rosie Aguilera DO [address] [place] [address] PCP - General FAMILY PRACTICE 05/21/25 documented as of this encounter
--- OUTSIDE RECORDS SUMMARY | 2025-08-21 17:00 | XMS_ITS | Clinical Summary ---
Author Organization [facility] Address [address] [place] [address] Phone Care Team Providers Care Supervisor Labor Gang Name Role Phone Rosie Aguilera Primary Care Provider [phone] Allergies No known active allergies Medications No known medications Encounters Date Type Department Care Team Description 07/05/2025 Nursing Facility [facility] [place] [address] Zahraa Carreno APRN, [place] 07/02/2025 12:09 PM CDT - 07/02/2025 7:21 PM CDT Emergency [facility] Emergency [address] [place] [address] Edgar Mckeon DO Disruption of wound of perineum in female Discharge Disposition: Discharged to home or Selfcare 07/02/2025 Nursing Facility [facility] [place] [address] Zahraa Carreno APRN, [place] 07/02/2025 Travel 06/29/2025 Nursing Facility [facility] [place] [address] Balaji Thrasher MD from Last 3 Months Social History Tobacco Use Types Packs/Day Years Used Date Smoking Tobacco: Never Assessed Comments No Sex and Gender Information Value Date Recorded Sex Assigned at Not on file Legal Sex Female 12:09 PM CDT Gender Identity Not on file Sexual Orientation Not on file Last Filed Vital Signs Vital Sign Reading Time Taken Comments Blood Pressure 126/60 07/02/2025 5:30 PM CDT Pulse 89 07/02/2025 3:30 PM CDT Temperature 37 C (98.6 F) 07/02/2025 12:15 PM CDT Respiratory Rate 17 07/02/2025 5:00 PM CDT Oxygen Saturation 99% 07/02/2025 3:30 PM CDT Inhaled Oxygen Concentration - - Weight 159.7 kg (352 lb) 07/02/2025 12:15 PM CDT Height 154.9 cm (5' 1) 07/02/2025 12:15 PM CDT Body Mass Index 66.51 07/02/2025 12:15 PM CDT Plan of Treatment Health Maintenance Due Date Last Done Comments Hepatitis B Immunization (1 of 3 - 19+ 3-dose series) 1996 HPV/Cotest 2007 Cologuard 2022 Colonoscopy 2022 Colorectal Cancer Screening 2022 Immunochemical Fecal Occult Blood 2022 Cervical Cancer Screening (CCS) 01/29/2024 Pap Smear 01/29/2024 01/28/2021 Mammogram 04/09/2024 04/09/2023, 02/15, 11/14/2021, Additional history exists Influenza Immunization (#1) 2025 10/0 06/2019, 07/21/2018, 10/18/2016, Additional history exists SARS-COV-2 Immunization ( - 2024- season) 2025 Respiratory Syncytial Virus (RSV) Immunization (Adult) (1 - 1-dose 75+ series) 2052 TdaP Immunization Completed 07/26/2019 Discussion re Starting/Frequency of Mammograms Completed 04/09/2023, 03/03/2023, 11/14/2021, Additional history exists Hepatitis C Virus (HCV) Screening Completed 08/23/2023 Human Papillomavirus (HPV) Immunization Aged Out No longer eligible based on patient's age to complete this topic Meningococcal Immunization (ACWY) Aged Out No longer eligible based on patient's age to complete this topic Pneumococcal Immunization Combined Aged Out No longer eligible based on patient's age to complete this topic Rotavirus Immunization Aged Out No lo nger eligible based on patient's age to complete this topic Procedures Procedure Name Priority Date/Time Associated Diagnosis Comments POCT GLUCOSE STAT 07/02/2025 3:[address] ABDOMEN PELVIS W/ CONTRAST Stat with Interpretation 07/02/2025 3:07 PM CDT GOLD TOP TUBE STAT 07/02/2025 1:20 PM CDT CBC WITH AUTO DIFFERENTIAL STAT 07/02/2025 1:20 PM CDT EXTRA TUBES STAT 07/02/2025 1:20 PM CDT LACTIC ACID (LACTATE) STAT 07/02/2025 1:20 PM CDT COMPLETE BLOOD COUNT (CBC) WITH DIFF STAT 07/02/2025 1:20 PM CDT CMP (COMPREHENSIVE METABOLIC PANEL) STAT 07/02/2025 1:20 PM CDT CULTURE, BLOOD STAT 07/02/2025 1:20 PM CDT CULTURE, BLOOD STAT 07/02/2025 1:20 PM CDT from Last 3 Months Results * (ABNORMAL) POCT Glucose (07/02/2025 3:28 PM CDT) GLUCOSE,BEDSID E POCT 113(H) 70 - 99 mg/dL 07/02/2025 3:33 PM CDT [facility] Blood 07/02/2025 3:28 PM CDT 07/02/2025 3:33 PM CDT us None Provider POINT OF CARE TESTING Final Resu lt [facility] [address] [place] [address] * CT ABDOMEN PELVIS W/ CONTRAST (07/02/2025 3:07 PM CDT) Anatomical Region Laterality Modality Abdomen N/A Computed Tomogra phy 07/02/2025 3:07 PM CDT Impressions 07/02/2025 3:32 PM CDT Impression: 1. A 5.0 cm soft tissue wound centered within the right labia which communicates with the patient's skin. Inflammatory changes extend more superiorly within the right perineum and along the right inguinal canal as well as posteriorly towards the right inferomedial gluteal crease. 2. No deeper organized/drainable fluid collection within the right perineum. No deeper areas of soft tissue gas separate from the wounds communicating with the patient's skin. 3. Enlarged right inguinal lymph nodes, reactive in nature. Narrative 07/02/2025 3:32 PM CDT DICTATING PHYSICIAN: Derek Rodriguez M.D. - [facility] Examination: CT abdomen and pelvis with contrast. Clinical Information: 49-year-old female with history of pelvic/lower abdominal wound. History of necrotizing fasciitis. Comparison: None. Technique: IV contrast: 100 mL of Isovue-300. Enteric contrast: Oral contrast: None. Technical comments: Standard technique. Dose reduction: This CT exam was performed using one or more of the following dose-reduction techniques: Automated exposure control, adjustment of the mA and/or kV according to patient size, and/or use of iterative reconstruction technique.Total exam DLP: 3023 mGy-cm. Findings: LOWER CHEST The heart is normal in size. No pericardial effusion. The lung bases are clear. No pleural effusion. UPPER ABDOMEN Liver and bile ducts: The liver is morphologically normal. No focal suspicious hepatic lesions demonstrated. Hepatic steatosis. The portal and hepatic veins are patent. No biliary ductal dilatation. Gallbladder: Cholelithiasis. No evident gallbladder wall thickening or pericholecystic inflammatory changes. Pancreas: Normal in morphology. No peripancreatic inflammatory changes. Spleen: Normal. RETROPERITONEUM Adrenals: Normal. Kidneys: The kidneys are morphologically normal and symmetrically enhance. No focal suspicious renal lesion demonstrated. No hydronephrosis or ureterectasis, bilaterally. Lymph nodes: Mildly prominent right inguinal lymph nodes, favored reactive in nature. No suspicious upper abdominal, mesenteric, or retroperitoneal lymphadenopathy. BOWEL AND PERITONEUM Bowel: The small and large bowel is normal in caliber and wall thickness. There is no small or large bowel obstruction. Mild colonic stool burden. The appendix is normal. The terminal ileum is normal. The distal esophagus, stomach, and duodenum are normal. The duodenum crosses midline. Free air or fluid: None. VASCULATURE There is no abdominal aortic aneurysm. The IVC is normal in caliber. The renal veins are patent. The mesenteric veins are patent. PELVIS Centered within the right labia, there is a 5.0 x 3.7 cm soft tissue wound which communicates with the patient's skin (series 303, image #252). There is overlying cutaneous thickening and subcutaneous stranding. Inflammatory changes extend superiorly within the right perineum and along the right inguinal canal. Inflammatory changes also extend posteriorly and possibly communicate with the right inferomedial gluteal fold (series 303, image #230). Adjacent mildly prominent right inguinal lymph nodes are favored reactive in nature. No evident organized/drainable fluid collection deeper within the right perineum or within the right inguinal region. Nonspecific subcutaneous stranding within the patient's pannus and mons pubis. No organized/drainable fluid collection within the anterior abdominal wall. BONES AND SOFT TISSUES No acute or suspicious osseous lesions demonstrated. Procedure Note Derek Rodriguez MD - 07/02/2025 DICTATING PHYSICIAN: Derek Rodriguez M.D. - [facility] Examination: CT abdomen and pelvis with contrast. Clinical Information: 49-year-old female with history of pelvic/lowerabdominal wound. History of necrotizing fasciitis. Comparison: None. Technique: IV contrast: 100 mL of Isovue-300. Enteric contrast: Oral contrast: None. Technical comments: Standard technique. Dose reduction: This CT exam was performed using one or more of thefollowing dose-reduction techniques: Automated exposure control,adjustment of the mA and/or kV according to patient size, and/or use ofiterative reconstruction technique.Total exam DLP: 3023 mGy-cm. Findings: LOWER CHEST The heart is normal in size. No pericardial effusion. The lung basesare clear. No pleural effusion. UPPER ABDOMEN Liver and bile ducts: The liver is morphologically normal. No focalsuspicious hepatic lesions demonstrated. Hepatic steatosis. The [place] hepatic veins are patent. No biliary ductal dilatation. Gallbladder: Cholelithiasis. No evident gallbladder wall thickeningor pericholecystic inflammatory changes. Pancreas: Normal in morphology. No peripancreatic inflammatorychanges. Spleen: Normal. RETROPERITONEUM Adrenals: Normal. Kidneys: The kidneys are morphologically normal and symmetricallyenhance. No focal suspicious renal lesion demonstrated. Nohydronephrosis or ureterectasis, bilaterally. Lymph nodes: Mildly prominent right inguinal lymph nodes, favoredreactive in nature. No suspicious upper abdominal, mesenteric, orretroperitoneal lymphadenopathy. BOWEL AND PERITONEUM Bowel: The small and large bowel is normal in caliber and wallthickness. There is no small or large bowel obstruction. Mild colonicstool burden. The appendix is normal. The terminal ileum is normal. Thedistal esophagus, stomach, and duodenum are normal. The duodenum crossesmidline. Free air or fluid: None. VASCULATURE There is no abdominal aortic aneurysm. The IVC is normal in caliber.The renal veins are patent. The mesenteric veins are patent. PELVIS Centered within the right labia, there is a 5.0 x 3.7 cm soft tissue woundwhich communicates with the patient's skin (series 303, image #252).There is overlying cutaneous thickening and subcutaneous stranding.Inflammatory changes extend superiorly within the right perineum and alongthe right inguinal canal. Inflammatory changes also extend posteriorlyand possibly communicate with the right inferomedial gluteal fold ([id number], image #230). Adjacent mildly prominent right inguinal lymph nodesare favored reactive in nature. No evident organized/drainable fluidcollection deeper within the right perineum or within the right inguinalregion. Nonspecific subcutaneous stranding within the patient's pannusand mons pubis. No organized/drainable fluid collection within theanterior abdominal wall. BONES AND SOFT TISSUES No acute or suspicious osseous lesions demonstrated. Impression: 1. A 5.0 cm soft tissue wound centered within the right labia whichcommunicates with the patient's skin. Inflammatory changes extend moresuperiorly within the right perineum and along the right inguinal canal aswell as posteriorly towards the right inferomedial gluteal crease. 2. No deeper organized/drainable fluid collection within the rightperineum. No deeper areas of soft tissue gas separate from the woundscommunicating with the patient's skin. 3. Enlarged right inguinal lymph nodes, reactive in nature. us Edgar Mckeon DO IMG CT ORDERABLES Final Result * Gold Top Tube (07/02/2025 1:20 PM CDT) Blood No Phlebotomy Charged / Unknown 07/02/2025 1:20 PM CDT 07/02/2025 1:33 PM CDT us Edgar Mckeon DO CHEMISTRY ORDERABLES Fi nal Result [facility] [address] [place] [address] * (ABNORMAL) CBC with Auto Differential (07/02/2025 1:20 PM CDT) WBC 10.53 4.00 - 12.00 10(3)/mcL 07/02/2025 2:21 PM CDT [facility] RBC 3.78(L) 3.80 - 5.30 10(6)/mcL 07/02/2025 2:21 PM CDT [facility] HEMOGLOBIN (HGB) 10.6(L) 12.0 - 15.8 g/dL 07/02/2025 2:21 PM CDT [facility] HEMATOCRIT (HCT) 34.7(L) 36.0 - 47.0 % 07/02/2025 2:21 PM CDT [facility] MCV 91.8 82.0 - 96.0 fL 07/02/2025 2:21 PM CDT [facility] MCH 28.0 26.0 - 34.0 pg 07/02/2025 2:21 PM CDT [facility] MCHC 30.5(L) 31.0 - 36.0 g/dL 07/02/2025 2:21 PM CDT [facility] PLATELET COUNT 441(H) 140 - 440 10(3)/mcL 07/02/2025 2:21 PM CDT [facility] RDW 16.6(H) 11.8 - 15.5 % 07/02/2025 2:21 PM CDT [facility] MPV 11.3 9.7 - 12.4 fL 07/02/2025 2:21 PM CDT [facility] NEUTROPHILS 51.6 47.0 - 73.0 % 07/02/2025 2:21 PM CDT [facility] LYMPHOCYTES 35.7 18.0 - 42.0 % 07/02/2025 2:21 PM CDT [facility] MONOCYTES 9.0 4.0 - 12.0 % 07/02/2025 2:21 PM CDT [facility] EOSINOPHILS 2.4 0.0 - 5.0 % 07/02/2025 2:21 PM CDT [facility] BASOPHILS 0.9 0.0 - 1.0 % 07/02/2025 2:21 PM CDT [facility] IMMATURE GRANULOCYTE 0.4 0.0 - 0.4 % 07/02/2025 2:21 PM CDT [facility] ABSOLUTE NEUTROPHILS 5.44 1.60 - 7.70 10(3)/[facility] 07/02/2025 2:21 PM CDT [facility] ABSOLUTE LYMPHOCYTES 3.76(H) 1.30 - 3.20 10(3)/[facility] 07/02/2025 2:21 PM CDT [facility] ABSOLUTE MONOCYTES 0.95 0.20 - 1.00 10(3)/[facility] 07/02/2025 2:21 PM CDT [facility] ABSOLUTE EOSINOPHIL 0.25 0.00 - 0.40 10(3)/[facility] 07/02/2025 2:21 PM CDT [facility] ABSOLUTE BASOPHILS 0.09 0.00 - 0.10 10(3)/[facility] 07/02/2025 2:21 PM CDT [facility] ABSOLUTE IMMATURE GRANULOCYTE 0.04(H) 0.00 - 0.03 10 (3) mcL. 07/02/2025 2:21 PM CDT [facility] NRBC PER 100 WBC 0 07/02/20 2:21 PM CDT [facility] RESULTS ARE CONSISTENT WITH PERIPHERAL SMEAR REVIEW Yes 07/02/2025 2:21 PM CDT [facility] Blood Venipuncture / Unknown 07/02/2025 1:20 PM CDT 07/02/2025 1:32 PM CDT us Edgar Mckeon DO HEMATOLOGY ORDERABLES F inal Result [facility] [address] [place] [address] * Lactic Acid (Lactate) Serum (07/02/2025 1:20 PM CDT) LACTIC ACID 1.1 0.7 - 2.0 mmol/L 07/02/2025 2:06 PM CDT [facility] Blood Venipuncture / Unknown 07/02/2025 1:20 PM CDT 07/02/2025 1:34 PM CDT us Edgar Mckeon DO CHEMISTRY ORDERABLES Fi nal Result Performing Organization Address [facility]/ZIP Co de Phone Number [facility] [address] [place] [address] * Culture, Blood (07/02/2025 1:20 PM CDT) Only the most recent of2 resultswithin the time period is included. CULTURE RESULTS NO GROWTH WITHIN 5 DAYS, FINAL RESULT 07/07/2025 2:00 PM CDT [facility] Culture BLOOD SPECIMEN / Unknown Venipuncture / Unknown 07/02/2025 1:20 PM CDT 07/02/2025 1:32 PM CDT us Edgar Mckeon DO MICROBIOLOGY - GENERAL ORDERABLES Final Result [facility] [address] [place] [address], * (ABNORMAL) CMP (Comprehensive Metabolic Panel) (07/02/2025 1:20 PM CDT) SODIUM 140 136 - 145 mmol/L 07/02/2025 2:08 PM CDT [facility] POTASSIUM 4.7 3.5 - 5.1 mmol/L 07/02/2025 2:08 PM CDT [facility] CHLORIDE 107 98 - 107 mmol/L 07/02/2025 2:08 PM CDT [facility] CO2, VENOUS 22 22 - 30 mmol/L 07/02/2025 2:08 PM CDT [facility] ANION GAP 15.7 <18.0 mmol/L 07/02/2025 2:08 PM CDT [facility] GLUCOSE 131(H) 70 - 99 mg/dL 07/02/2025 2:08 PM CDT [facility] BUN 26(H) 5 - 18 mg/dL 07/02/2025 2:08 PM CDT [facility] CREATININE, BLOOD 0.49(L) 0.60 - 1.00 mg/dL 07/02/2025 2:08 PM CDT [facility] BUN/CREATININE RATIO 53(H) 12 - 20 ratio 07/02/2025 2:08 PM CDT [facility] TOTAL PROTEIN 7.3 6.0 - 8.0 g/dL 07/02/2025 2:08 PM CDT [facility] ALBUMIN 3.7 3.5 - 5.0 g/dL 07/02/2025 2:08 PM CDT [facility] A/G RATIO 1.0 1.0 - 2.2 07/02/2025 2:08 PM CDT [facility] CALCIUM 9.2 8.7 - 10.5 mg/dL 07/02/2025 2:08 PM CDT [facility] T BILI 0.2 0.2 - 1.2 mg/dL 07/02/2025 2:08 PM CDT [facility] SGOT (AST) 31 <43 U/L 07/02/2025 2:08 PM CDT [facility] Comment: Specimen is hemolyzed. In vitro hemolysis could affect results. Clinical correlation advised. SGPT (ALT) 19 <56 U/L 07/02/2025 2:08 PM CDT [facility] ALKALINE PHOSPHATASE 65 40 - 150 U/L 07/02/2025 2:08 PM CDT [facility] GFR, ESTIMATED >60 >=60 07/02/2025 2:08 PM CDT [facility] Comment: Creatinine Clearance is the preferred criteria for selecting drug dose adjustments in renally impaired patients. The GFR is provided as additional pertinent clinical information. GFR is reported in mL/min/1.73 sq m. Calculation based on the 2020 Chronic Kidney Disease Epidemiology Collaboration (CKD-EPI) equation refit without adjustment for race. GFR, EST. >60 >=60 2:08 PM CDT [facility] Comment: Creatinine Clearance is the preferred criteria for selecting drug dose adjustments in renally impaired patients. The GFR is provided as additional pertinent clinical information. GFR is reported in mL/min/1.73 sq m. Calculation based on the 2009 Chronic Kidney Disease Epidemiology Collaboration (CKD-EPI). GFR, EST. NONAFRICAN >60 >=60 07/02/2025 2:08 PM CDT [facility] Comment: Creatinine Clearance is the preferred criteria for selecting drug dose adjustments in renally impaired patients. The GFR is provided as additional pertinent clinical information. GFR is reported in mL/min/1.73 sq m. Calculation based on the 2009 Chronic Kidney Disease Epidemiology Collaboration (CKD-EPI). Blood Venipuncture / Unknown 07/02/2025 1:20 PM CDT 07/02/2025 1:32 PM CDT us Edgar Mckeon DO CHEMISTRY ORDERABLES Fi nal Result [facility] [address] [place] [address] from Last 3 Months Insurance [facility] O[facility] Care Teams Supervisor Labor Gang Relationship Specialty Start Date End Date Rosie Aguilera DO [address] [address] [address] [place], [place] [id number] PCP - General Family Medicine 07/02/25
--- OUTSIDE RECORDS SUMMARY | 2025-08-21 17:00 | XMS_ITS | Encounter Summary ---
Author Organization [facility] Address [address] [place] [address] Phone Care Team Providers Care Appliance Assembler Name Role Phone Rosie Aguilera DO Primary Care Provider [phone] Encounter Details Date Type Department Care Team (Late st Contact Info) Description 07/05/2025 Nursing Facility [facility] [place] [address] Zahraa Carreno, JOSHUA, WINDER CONTORT OPERATOR [address] [place] [address] Social History Tobacco Use Types Packs/Day Years Used Date Smoking Tobacco: Never Assessed Comments No Sex and Gender Information Value Date Recorded Sex Assigned at Not on file Legal Sex Female 12:09 PM CDT Gender Identity Not on file Sexual Orientation Not on file documented as of this encounter Progress Notes * Zahraa Carreno, PHARMACOVIGILANCE SPECIALIST, WINDER CONTORT OPERATOR - 07/05/2025 11:59 PM CDT [facility] PROGRESS NOTE Nelly J Petrona is a 49 y.o. female at [facility] for rehabilitation. Subjective: Interval History: I am [...] air entry and normal respiratory effort Abdominal: soft, nontender, nondistended. Positive Bowel sounds, no organomegaly appreciated Extremities: no edema, no clubbing or cyanosis Neuro: alert and orient x 3. Moves all extremities well. No neurological deficits noted. Gait not tested Lab Results: none Imaging: none Assessment/Plan: Recent Necrotizing Fasciitis to Right Perineum Multiple Incision and drainage at [facility]. Sutures intact, found to have large volume of drainage from area. Sent to [facility] ED for CT A/P. Results noted and sent to her surgeon at [facility]. Pt to follow up in the office tomorrow at [facility] Continue local wound care Seen by surgeon at [facility] and continue current local wound care and sutures to be removed on next visit per pt DM type 2 A1C was > 11 during hospitalization at [facility] BS still running high in 200-300s Increased lantus insulin to 60 units and 20 unit with meals and continue sliding scale with insulin BS ranging 99-250s, encourage pt to limit snacking. Continue current basal bolurs with lantus and 20 units of meal time insulin with sliding scale HTN/HLD Bp stable, continue antihypertensives CHUY Has not been using CPAP Morbid Obesity Wt 352lbs, encouraged diabetic low fat diet VTE Prophylaxis: activity By: Zahraa Carreno APRN, CNP, 07/06/2025 4:29 AM CDT documented in this encounter Plan of Treatment Not on file documented as of this encounter Visit Diagnoses Not on filedocumented in this encounter Care Teams Appliance Assembler Relationship Specialty Start Date End Date Rosie Aguilera DO [address] [place] [address], [place] [address] [place] [address] PCP - General Family Medicine 07/02/25 documented as of this encounter
--- OUTSIDE RECORDS SUMMARY | 2025-08-21 17:00 | XMS_ITS | Encounter Summary ---
Author Organization [facility] Address [facility]ly [facility] [place] [address] Care Team Providers Care Radiologic Technologist Mammogram Name Role Phone Rosie Aguilera DO Primary Care Provider [phone] Encounter Details Date Type Department Care Team (Late Contact Info) Description 06/25/2025 MyChart Message Enc [facility] Family & Internal Medicine [address] [phone] Rosie Aguilera DO 3 [facility]. [facility] [address] [place], [place] [phone] My hospital records Social History Tobacco Use Types Packs/Day Years [...] PM CDT Legal Sex Female 8:24 AM PATIENT SERVICE COORDINATOR Gender Identity Female 05/21/2025 1:18 PM CDT Sexual Orientation Not on file documented as of this encounter Plan of Treatment Upcoming Encounters Date Type Department Care Team (Late Contact Info) Description 08/30/2025 11:00 AM PATIENT SERVICE COORDINATOR Office Visit Adelina [place] [facility] [address] [place], [place] [phone] Matthew Agustin MD [address] [place] [address] 12/26/2025 10:20 AM CDT Office Visit [facility] - [address] [place] [address] Sebastien Naik MD [address] [address] documented as of this encounter Visit Diagnoses Not on filedocumented in this encounter Additional Health Concerns Assessment Noted Time PHQ-9 Depression Total Score: 8 05/21/20 23 1:09 PM CDT documented as of this encounter Care Teams Radiologic Technologist Mammogram Relationship Specialty Start Date End Date Rosie Aguilera DO [address] [place] [address] PCP - General FAMILY PRACTICE 05/21/25 documented as of this encounter
--- OUTSIDE RECORDS SUMMARY | 2025-08-21 17:00 | XMS_ITS | Clinical Summary ---
Author Organization [facility] Address [address] [place] [address] Care Team Providers Care Phonograph Needle Tip Maker Name Role Phone Rosie Aguilera DO Primary Care Provider [phone] Chip Hagen MD Unavailable +- [phone] Chad Castellon MD Unavailable + [phone] Allergies No known active allergies Medications pen needle, diabetic 31 gauge x 5/16 needle Use to inject 4 times daily as directed. 400 each 4 04/30/20 22 Active buPROPion XL (WELLBUTRIN XL) 150 mg 24 hr tabletIndicatio ns:Moderate episode of recurrent major depressive disorder (HCC) TAKE 1 TABLET(150 MG) BY MOUTH EVERY MORNING 90 tablet 1 11/20/19 23 Active acetaminophen 500 mg capsule Take 2 capsules (1,000 mg total) by mouth 3 times a day 06/21/20 25 Active ramelteon (ROZEREM) 8 mg tabletIndicatio ns:Sleep-Onset Insomnia Take 1 tablet (8 mg total) by mouth nightly 0 06/21/20 25 026 Active amLODIPine (NORVASC) 10 mg tablet Take 1 tablet (10 mg total) by mouth daily Active atorvastatin (LIPITOR) 40 mg tablet Take 1 tablet (40 mg total) by mouth nightly Active drospirenone, contraceptive, (SLYND) tablet tablet Take 1 each (4 mg total) by mouth daily Active estradioL (CLIMARA) 0.05 mg/[address] 1 patch on the skin Twice a week Active venlafaxine 75 mg tablet extended release 24hr 24 hr tablet Take 1 tablet (75 mg total) by mouth daily Active fluticasone propionate (FLONASE) 50 mcg/actuation nasal spray Administer 1 spray into each nostril daily as needed for rhinitis 06/21/20 25 Active insulin lispro (HumaLOG, ADMELOG) 100 unit/mL pen for injection Inject 2-10 units under the skin 3 (three) times a day with meals. Blood glucose mg/dL 150-199: 2 units, 200-249: 4 units, 250-299: 6 units, 300-349: 8 units, 350 or greater: 10 units. Notify provider for blood glucose greater than 299 mg/dL. Refer to After Visit Summary for Sliding Scale Insulin Instructions. 06/21/20 25 Active doxycycline (VIBRAMYCIN) 100 mg capsuleIndicati ons:Chronic Suppression Take 1 tablet/capsul e (100 mg total) by mouth daily 120 tablet/caps ule 07/29/20 25 026 Active apixaban (ELIQUIS) 5 mg tabletIndicatio ns:atrial fibrillation Take 1 tablet (5 mg total) by mouth every 12 (twelve) hours 60 tablet 1 07/21/20 25 025 Active lisinopriL (PRINIVIL,ZESTR IL) 30 mg tablet Take 1 tablet (30 mg total) by mouth daily 30 tablet 1 07/21/20 25 025 Active insulin glargine 100 unit/mL (3 mL) pen for injection Inject 35 Units under the skin daily before breakfast AND 37 Units nightly. 21.6 mL 07/26/20 25 025 Active insulin lispro (HumaLOG, ADMELOG) 100 unit/mL pen for injection Inject 18 Units under the skin 3 (three) times a day with meals 16.2 mL 07/27/20 25 Active gabapentin (NEURONTIN) 300 mg capsule Take 1 capsule (300 mg total) by mouth 3 (three) times a day for 7 days 21 capsule 07/27/20 25 Active semaglutide (Ozempic) 0.25 mg or 0.5 mg(2 mg/1.5 mL) pen injector injection Inject 0.25 mg under the skin every 7 days for 30 days, THEN 0.5 mg every 7 days. 3 mL 3 11/14/19 22 025 Discontinued(S top Taking at Discharge) lisinopril-hydr oCHLOROthiazide (ZESTORETIC) 20-25 mg per tablet TAKE 1 TABLET BY MOUTH DAILY 90 tablet 1 11/20/19 23 025 Discontinued(S top Taking at Discharge) insulin lispro (HumaLOG, ADMELOG) 100 unit/mL pen for injection Inject 6 Units under the skin 2 (two) times a day as needed (Administer insulin when snack arrives.) 0 06/21/20 25 025 Discontinued(S top Taking at Discharge) ascorbic acid (VITAMIN C) 500 mg tablet,chewable Take 1 tablet/chew tab (500 mg total) by mouth 2 (two) times a day for 14 days 0 06/21/20 25 025 Discontinued(P atient Reported) gabapentin (NEURONTIN) 300 mg capsule Take 1 capsule (300 mg total) by mouth 3 (three) times a day 0 06/21/20 25 025 Discontinued PNV with aqeronf-ifdd-IS 27 mg iron- 1 mg tablet Take 1 tablet by mouth daily 0 06/21/20 25 025 Discontinued(S top Taking at Discharge) zinc sulfate (ZINCATE) 50 mg zinc (220 mg) capsule Take 1 capsule (220 mg total) by mouth daily for 14 days 0 06/21/20 25 025 Discontinued(S top Taking at Discharge) insulin lispro (HumaLOG, ADMELOG) 100 unit/mL pen for injection Inject 18 Units under the skin 3 (three) times a day with meals 06/21/20 25 025 Discontinued(P atient Reported) semaglutide (OZEMPIC) 0.25 mg or 0.5 mg (2 mg/3 mL) pen injector injection Inject 0.5 mg under the skin every 7 days for 2 doses 06/22/20 25 025 Discontinued(S top Taking at Discharge) insulin glargine 100 unit/mL vial for injection Inject 60 Units under the skin nightly 025 Discontinued(S top Taking at Discharge) doxycycline (MONODOX) 100 mg capsuleIndicati ons:Skin/Soft Tissue Infection Take 1 capsule (100 mg total) by mouth 2 (two) times a day for 7 days 14 capsule 07/21/20 25 025 insulin glargine 100 unit/mL (3 mL) pen for injection Inject 30 Units under the skin 2 (two) times a day 15 mL 1 07/21/20 025 Discontinued Active Problems Problem Noted Date Diagnosed Date Cellulitis of abdominal wall 07/14/2025 Encounter for medication review 06/21/2025 Assessment & Plan (06/21/2025 11:23 AM CDT): 06/21 [facility] dispense report reviewed and updated in admissions tab Hormone replacement therapy 06/21/2025 Assessment & Plan (06/21/2025 11:39 AM CDT): Home regimen: drospirenone (non-formulary), estradiol (continued) --- f/u PCP or previously established provider for ongoing management on hospital discharge Frequent loose stools 06/19/2025 Assessment & Plan (06/20/2025 8:22 AM CDT): 06/19 wbc 16, bm x4/24h, send cdiff 06/20 wbc 11, no bm/24h, cdiff cancelled RESOLVED Cdiff 06/12: negative Cdiff 06/19: no specimen to collect Discharge planning issues 06/11/2025 Assessment & Plan (06/22/2025 9:12 AM CDT): -06/11 OR tomorrow for closure, ADD weds vs Thurs -06/12 OR today, ADD end of week -06/13 pending VC, diabetes education, DOAC sommer, ADD end of week. -06/14 pending diabetes education, ADD tomorrow -06/15 Patient is medically stable for discharge, SW/CM updated. Discharge pending facility acceptance 06/17: recheck WBC tomorrow. Awaiting facility acceptance. 06/18-06/22 Awaiting SNF acceptance and ins auth Atrial fibrillation with rapid ventricular respo nse 06/05/2025 Assessment & Plan (06/22/2025 9:13 AM CDT): New onset 06/03. Required amio gtt. TSH wnl. Has been in NSR since. - 06/06: metop increased from 12.5 to 25mg BID - TTE without valvular pathology, hyperdynamic LV with EF 75% 06/07 HR 68-84, NSR 06/12 rate controlled, tele in OU, continue metoprolol, EKG: NSR, will discuss anticoagulation on discharge, will need sommer check 06/13 rate controlled, ordered sommer check, EKG on 06/13 shows normal sinus rhythm. 06/14-06/22 rate controlled and hemodynamically stable otherwise --- one new episode of Afib during admission, EKG/TTE unremarkable, NO DOAC on discharge, referral sent out for op Cardiology evaluation Nadia Lala Pradaxa $20 copay. Edoxaban [Savaysa) not covered CAD (coronary artery disease) 06/05/2025 Groin abscess 06/04/2025 Assessment & Plan (06/22/2025 9:11 AM CDT): 06/02: OR w/ Anabelle, I&D of R groin, perineum, packed with Dakins soaked kerlix. 06/04: OR w/ Tomasz, repeat I&D; minimal necrotic subcutaneous tissue at the right mons pubis wound base, minimal drainage, no further purulent fluid collections. Packed w/ Dakins soaked Kerlix. 06/07: OR w/ Gabriela, repeat I&D: Purulence in the deep wound space with overlying skin necrosis/ischemia, tunneling of the wound infero-posteriorly. Packed w/ Dakins soaked Kerlix. - 06/05: De-escalated from zosyn to cef/flagyl, vanc continued for +S. Lugdenensis - 06/07: Vanc d/lyla, linezolid started - 06/08: Continue WTD Dakins dressing changes and abx. Plan to RTOR tomorrow for I&D, possible closure. - 06/10: OR today, will post-op check, pain control. - 06/11: AFVSS, wbc 25.59 from 20.88, Irrigating Wound Vac intact, will RTOR tomorrow for closure - 06/12 OR today, wbc 18 from 25, abx as below - 06/13 POD1 from closure, wbc 20.49 from 18.16, JASMEET drain output 65cc, switched abx to bactrim x4days. - 06/14 POD2 from closure, wbc 18.95, JASMEET drain op 145cc, 2-3 sutures dehiscence, pic uploaded, will WTD BID. - 06/15 POD3 from closure, wbc stable, JASMEET drain op 30cc, continue WTD BID. Abx total 7 days from closure. 06/17: POD 5. WBC 19.73 from 18.7. Afebrile. JASMEET drain OP 50ml/24h; murky serosang. Bactrim stopped at end of 7-day course yesterday. Plan: continue dressing changes at least BID with interdry to skin folds, Vashe WTD to open area of dehisced sutures, dry ABD. Monitor WBC tomorrow; resume antibiotics if elevated. 06/18 POD 6, WBC slowly trending down 17.7, JASMEET drain serous 20 ml. Suture line clean with area that dehisced-tissue pink and clean. Vashe wet to dry BID. Interdry dressing to groin fold. 06/19 POD7 afebrile, wbc 16 from 17, hgb stable, wound clean, JASMEET 8cc/24h serous, continue local wound care 06/20 POD8 afebrile, wbc 11, wound clean - photo uploaded, JASMEET removed as it is no longer holding suction, continue local wound care 06/21 POD9 afebrile, no labs, wound unchanged 06/22 POD10 afebrile, no labs, wound unchanged - photo uploaded --- follow up with ACCS team on 06/28/2025 --- patient added to culture list Cultures Blood cx 06/02: negative Abscess cx 06/02: Mixed aerobic and anaerobic microorganisms Fungal: NGTD Tissue cx 06/02: Abundant Mixed aerobic and anaerobic microorganisms, rare Staphylococcus lugdunensis Fungal NGTD Tissue cx 06/04: mixed anaerobic microorganisms Antibiotics: Clindamycin (06/02 - 06/04) Zosyn (06/02- 06/04) Vancomycin (06/02- 06/06) Ceftriaxone (06/05 - 06/13) Flagyl (06/05 - 06/13 ) Linezolid (06/07 - 06/13) Bactrim (06/13- 06/16) Path: none Necrotizing soft tissue infection 06/02/2025 Assessment & Plan (06/12/2025 11:33 AM CDT): See alternate parameter for management Plantar fasciitis of right foot 07/14/2024 Moderate episode of recurrent major depressive d isorder 08/12/2020 Assessment & Plan (11/05/2021 9:16 AM VACUUM REPAIRER): Stable Continue bupropion and fluoxetine Assessment & [...] have her try to use heat BMI 50.0-59.9, adult 04/08/2018 Assessment & Plan (06/22/2025 9:12 AM CDT): Body mass index is 59.33 kg/m . --- semaglutide rx provided on discharge, f/u with PCP v Sal in network for ongoing management Assessment & Plan (03/06/2022 12:05 PM CDT): BMI Follow-up includes: nutrition counseling, exercise counseling and education provided. Assessment & Plan (11/05/2021 8:47 AM VACUUM REPAIRER): BMI Follow-up includes: nutrition counseling, exercise counseling [...] discussed. 1 mg DST to rule out Rebecca's syndrome. Assessment & Plan (05/08/2018 12:00 AM CDT): Discussed the patient's BMI. The BMI is above average; BMI management plan is completed. Diet interventions: moderate (500 kCal/d) deficit diet. Regular aerobic exercise program discussed. Evaluation for [place]'s syndrome once off steroid cream. Surgical weight loss discussed: Not receptive to the idea. Persistent disorder of initiating or maintaining sleep 04/08/2018 Anxiety 03/29/2018 Assessment & Plan (06/21/2025 11:41 AM CDT): Home regimen: welbutrin, venlefaxine (continued) --- f/u PCP or previously established provider for ongoing management on hospital discharge Assessment & Plan (11/05/2021 9:16 AM VACUUM REPAIRER): Increase fluoxetine to 60mg daily Continue bupropion Encouraged her to start counseling Consider addition of buspar if anxiety remains uncontrolled Assessment & Plan (04/11/2020 9:41 AM CDT): Continue fluoxetine and Xanax p.r.n. CHUY (obstructive sleep apnea) 03/09/2018 Assessment & Plan (06/06/2025 6:34 AM CDT): Pt has a dx of CHUY, but does not wear CPAP Assessment & Plan (04/11/2020 9:39 AM CDT): Non compliant with CPAP Encouraged patient to use CPAP any time she sleeps or takes a nap Assessment & Plan (01/11/2020 8:05 AM CDT): We will order replacement CPAP machine supplies today Assessment & Plan (01/03/2020 4:51 PM CDT): Stable on current regimen Type 2 diabetes mellitus 04/06/2017 Assessment & Plan (06/22/2025 9:11 AM CDT): 06/05 A1C 11 Home regimen: trulicity, metformin, 40u glargine qhs, lispro 25u with meals Presented w/ BG ~300s, AG 19, BHB 2.1. Resolved. Ongoing difficulty with glucose control requiring insulin gtt. - 06/06: Transitioned off of insulin gtt to degludec 12u qhs and lispro 4u TID, HDSSI. Glucose not well-controlled overnight. On reg diet today, will need dose adjustment. - 06/07: Insulin increased to 45u qhs, lispro 15u with meals, HDSSI. Glucose still uncontrolled overnight (200-280). Endocrinology consulted. - 06/08: Back on insulin gtt since yesterday. Endocrinology to assist with insulin regimen once requirements are clear - also recommended that pt should permanently d/c SGLT2 d/t high risk of future groin abscesses/NSTI. - 06/10: on insulin gtt since OR today. - 06/11: off insulin, switched to Tresiba 40 units every day, then discontinue insulin infusion 2 hours after first dose, lispro 14 units TID with meals and resistant correctional insulin TID/HS and 0200. - 06/12 remains off of insulin, additional tresiba + incr prandial coverage postop, Endo following, diabetes education ordered - 06/13 BG 127-234, Endo following, pending diabetes enducation. - 06/14 BG 182-263, Endo following, increased insulin dose. - 06/15 BG 188-235, Endo adjusted insulin and rec discharge treatment plan, diabetes education done. - 06/17-06/22 BG controlled, cont to appreciate endo recommendations and adjust as needed. Discharge plan: - discontinue empagliflozin and all SGLT2i indefinitely - glargine/insulin degludec 45 units subcutaneously Q AM - lispro 18 units subcutaneously TID with meals, 6 units BID PRN snacks and resistant (3 units per 50 points greater than 150 mg/dl) TID/HS; max daily dose 120 units) - semaglutide 0.5 mg subcutaneously x 2 weeks, then increase to 1.0 mg subcutaneously Q week x 2 weeks, then increase to 2.0 mg subcutaneously Q week Follow up with an welder 2nd shift in her insurance network and will contact them to schedule an appointment Assessment & Plan (03/06/2022 12:03 PM CDT): A1c today Continue omnipod Will check with insurance which GLP-1 is covered. Assessment & Plan (11/05/2021 9:15 AM VACUUM REPAIRER): A1c today asked patient to call her [...] a time Hypertension 04/06/2017 Assessment & Plan (06/22/2025 9:11 AM CDT): Holding home lisinopril-hctz, norvasc 06/06: Started on amlodipine 10mg and metoprolol increased to 25mg BID (see afib plan) 06/08: Resume lisinopril-hctz when able per Endo--> messaged with Endo, okay to resume as able. 06/18 Resumed lisinopril 20 mg and HCTZ 25 mg daily as surrogate for her combination medication at home. 06/19-06/22 HDS on current regimen --- f/u PCP for ongoing management on hospital discharge Assessment & Plan (03/06/2022 12:04 PM CDT): BP well controlled Continue lisinopril-hctz 20-25 Continue weight loss Assessment & Plan (11/05/2021 9:13 AM VACUUM REPAIRER): BP above goal Continue weight loss Continue [...] Hyperlipidemia, unspecified hyperlipidemia type Assessment & Plan (06/21/2025 11:39 AM CDT): Home regimen: atorvastatin (continued) --- f/u PCP for ongoing management on hospital discharge Assessment & Plan (11/05/2021 9:12 AM VACUUM REPAIRER): Continue pravastatin Lipid panel today Assessment & [...] antibiotics and monitor as clinical course dictates. [facility] health care 07/26/2019 Assessment & Plan (07/26/2019 2:29 PM CDT): Patient here to today for physical exam. The patient was evaluated and all health maintenance objectives were discussed and addressed. Rash 07/26/2019 04/10/2020 Assessment & Plan (12/01/2019 11:17 AM VACUUM REPAIRER): Patient has a small erythematous rash on the posterior of her left calf, we will try Lotrisone ointment, follow on current regimen Assessment & Plan (07/26/2019 2:45 PM CDT): Evidence of his severe fungal rash under her pannus she will finish up Diflucan, begin nystatin powder Preventative health care 03/09/2018 Assessment & Plan (03/09/2018 8:59 AM CDT): Patient here to today for physical exam. The patient was evaluated and all health maintenance objectives were discussed and addressed. Morbid obesity with BMI of 5 0.0-59.9, adult ([facility]) 11/23/2017 03/06/2022 Overview (03/09/2018): BMI Follow-up [...] time Assessment & Plan (11/23/2017 3:45 PM VACUUM REPAIRER): BMI Follow-up includes: nutrition counseling, exercise counseling and education provided. Sinus complaint 11/23/2017 04/10/2020 Assessment & Plan (11/23/2017 4:09 PM VACUUM REPAIRER): Start antibiotic. Irrigate sinuses with saline. If [...] are very high likely due to her tlo-eo-iyfnmny diabetes otherwise LDL is excellent Acute non-recurrent [...] 12:01 AM CDT): Well controlled on lisinopril-HCTZ. Encounters Date Type Department Care Team Description 08/03/2025 Telephone [facility] [address] [place] [address] [address] [place] [address] Socorro Morris, RN 08/03/2025 Telephone [facility] [address] [place] [address] [address] [place] [address] Chloé Villalta 08/03/2025 Telephone [facility] [address] [place] [address] [address] [place] [address] Socorro Morris, RN 08/02/2025 11:15 AM CDT Office Visit [facility] Acute and Critical Care Services [address] [place] [address] [place] [address] Necrotizing soft tissue infection (Primary Dx) 08/02/2025 Telephone [facility] [address] [facility] [address] [place] [address] Darien Koroma MD 08/02/2025 Telephone [facility] [address] [place] [address] [address] [place] [phone] Connie Carreno Appointment 07/23/2025 Telephone [facility] [address] [facility] [address] [place] [address] Chip Hagen MD Hospital Follow Up 07/14/2025 2:39 PM CDT - 07/26/2025 3:55 PM CDT Hospital Encounter [facility] [address] [place] [address] Miranda Chambers MD Shaba, Winnie, MD Kheirkhahan, Nazanin, MD Cellulitis of abdominal wall (Primary Dx); Paroxysmal A-fib (HCC); Primary hypertension Discharge Disposition: Discharge to home, home health skilled care 07/11/2025 Telephone [facility] [address] [place] [address] [address] [place] [phone] Connie Carreno wound/ wound d ishenced 07/05/2025 Telephone [facility] Acute and Critical Care Services [address] [place] [address] [address] [place] [address] Josephine Dhillon RN stitches coming out/lot of drainage 07/03/2025 10:30 AM CDT Office Visit [facility] Acute and Critical Care Services [address] [place] [address] [address] [place] [address] Necrotizing soft tissue infection (Primary Dx) 07/02/2025 Telephone [facility] Surgeon [address] [place] [address] Félix Arteaga MD 07/02/2025 Documentation General Surgery Adri Horvath PA 07/02/2025 Telephone [facility] [address] [place] [address] [address] [place] [phone] CarrenoRemigioen 06/29/2025 Documentation General Surgery Lisha Hernandez NP 06/12/2025 2:56 PM CDT Anesthesia Event [facility] Operating Room [address] [place] [phone] Higinio Tamayo MD PhD Aiyana Alcantara NP 06/12/2025 2:13 PM CDT - 06/12/2025 5:23 PM CDT Surgery [facility] Operating Room [address] [place] [phone] Claire Krishnan MD WOUND CLOSURE - PERINEUM 06/10/2025 4:06 PM CDT Anesthesia Event [facility] Operating Room [address] [place] [phone] Higinio Tamayo MD PhD Lucretia Robles MD 06/10/2025 2:45 PM CDT - 06/10/2025 5:05 PM CDT Surgery [facility] Operating Room [address] [place] [phone] Claire Krishnan MD DEBRIDEMENT - PERINEUM,PARTIAL CLOSURE WOUND 06/08/2025 Documentation [facility]patient [facility] Acute and Critical Care Services [address] [place] [address] [address] [place] [address] Krystyna Menjivar 06/07/2025 5:12 PM CDT Anesthesia Event [facility] Operating Room [address] [place] [phone] Dayana Dias MD Jablonski, Melody A., NP 06/07/2025 3:59 PM CDT - 06/07/2025 5:49 PM CDT Surgery [facility] Operating Room [address] [place] [phone] Dari Bojorquez MD DEBRIDEMENT - PERINEUM 06/04/2025 2:53 PM CDT Anesthesia Event [facility] Operating Room [address] [place] [address] Edgar Blank MD Fischer, Elissa U., NP 06/04/2025 1:15 PM CDT - 06/04/2025 3:55 PM CDT Surgery [facility] Operating Room [address] [place] [phone] Lexi Tolbert, IRRIGATION AND DEBRIDEMENT - GROIN, PERINEUM, VULVAR 06/02/2025 7:43 AM CDT Anesthesia Event [facility] Operating Room [address] [place] [phone] Niki Medrano MD Bharadwaj, Millie Malik MD 06/02/2025 7:30 AM CDT - 06/02/2025 9:20 AM CDT Surgery [facility] Operating Room [address] [place] [address] Romana Ahn MD IRRIGATION AND DEBRIDEMENT GROIN 06/02/2025 4:47 AM CDT - 06/22/2025 1:15 PM CDT Hospital Encounter [address] [phone] Sol Barba MD Matsumoto, Dari Pierre MD Acute abdominal pain (Primary Dx); Necrotizing soft tissue infection; At risk for sepsis; Necrotizing fasciitis (HCC); Groin abscess; BMI 50.0-59.9, adult (HCC); Atrial fibrillation with rapid ventricular response (HCC) Discharge Disposition: Discharge to SNF from Last 3 Months Immunizations Immunization Administration Dates Next Due Influenza, Quadrivalent, Spl it, Intramuscular 09/28/2016,07/18/2015 Influenza, Quadrivalent, Spl it, Preservative Free, Intramuscular 07/26/2019,07/21/2018 Influenza, Unspecified 03/06/2022(Deferr ed: Patient Refused),10/18/2016 Tdap 07/26/2019 Surgical History Surgery Date Site/Laterality Comments TONSILLECTOMY SINUS SURGERY Medical History Medical History Date Comments Type 2 diabetes mellitus Diabete s type 2; Comments: [facility] 01/24/2016 - Hypertension Hypertension Hyperlipidemia Hyperlipidemia; Comments: [facility] 01/24/2016 - Morbid obesity (HCC) Anxiety Depression [...] Never Smokeless Tobacco: Never Tobacco Cessation:Counseling Given: Not Answered Alcohol Use Standard Drinks/Week Comments Not Currently 0 (1 standard drink = 0.6 oz pur e alcohol) PHQ-2 Answer Date Recorded PHQ-2 Total Score 0 03/06/2022 Social Connection and Isolation Panel Answer Date Recorded In a typical week, how many times do you talk on the phone with family, friends, or neighbors? More than three times a week 07/16/2025 How often do you get togethe r with friends or relatives? Twice a week 07/16/2025 How often do you attend chur ch or hoahaoism services? Never 07/16/2025 Do you belong to any clubs o r organizations such as sabianism groups, unions, fraternal or athletic groups, or school groups? No 07/16/2025 How often do you attend meet ings of the clubs or organizations you belong to? Never 07/16/2025 Are you , , di vorced, , never , or living with a partner? 07/16/2025 AUDIT-C Answer Date Recorded Q1: How often do you have a drink containing alcohol? Never 07/14/2025 Q2: How many drinks containi ng alcohol do you have on a typical day when you are drinking? Patient does not drink Q3: How often do you have si x or more drinks on one occasion? Never 07/14/2025 Overall Financial Resource Strain (CARDIA) Answe r Date Recorded How hard is it for you to pa y for the very basics like food, housing, medical care, and heating? Not very hard 07/16/2025 Hunger Vital Sign Answer Date Recorded Within the past 12 months, y ou worried that your food would run out before you got the money to buy more. Never true 08/02/20 25 Within the past 12 months, t he food you bought just didn't last and you didn't have money to get more. Never true 08/02/2025 PRAPARE - Transportation Answer Date Re corded In the past 12 months, has l ack of transportation kept you from medical appointments or from getting medications? No 06/19 In the past 12 months, has l ack of transportation kept you from meetings, work, or from getting things needed for daily living? No 07/16/2025 Housing Stability Vital Sign Answer Alexander e Recorded In the last 12 months, was t here a time when you were not able to pay the mortgage or rent on time? No 07/16/2025 In the past 12 months, how m any times have you moved where you were living? 0 07/16/2025 At any time in the past 12 m [facility], were you homeless or living in a long term (including now)? No 07/16/2025 [facility] Utilities Answer Date Recorded In the past 12 months has th e electric, gas, oil, or water company threatened to shut off services in your home? No 07/16/2025 Personal Safety Answer Date Recorded Have you ever been in or are you currently in a harmful physical or emotional relationship or is someone making you feel afraid or unsafe? 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 Not on file Not on file Last Filed Vital Signs Vital Sign Reading Time Taken Comments Blood Pressure 158/57 08/02/2025 10:49 AM CDT Pulse 96 08/02/2025 10:49 AM CDT Temperature 36.2 C (97.2 F) 08/02/2025 10:49 AM CDT Respiratory Rate 16 07/26/2025 2:33 AM CDT Oxygen Saturation 99% 07/26/2025 7:50 AM CDT Inhaled Oxygen Concentration - - Weight 161.9 kg (357 lb) 08/02/2025 10:49 AM CDT Height 154.9 cm (5' 1) 08/02/2025 10:49 AM CDT Body Mass Index 67.45 08/02/2025 10:49 AM CDT Plan of Treatment Health Maintenance Due Date Last Done Comments Cervical Cancer Screening 1977 Colon Cancer Screening-Colonoscopy 1977 Hepatitis C Screening 1977 Hepatitis B Screening 1995 Pneumococcal vaccine <65 (1 of 2 - PCV) 1996 Regular Well Visit/Exam 18-64 07/26/2020 07/26/2019, 03/09/2018 Foot Exam 01/15/2022 01/15/2021, 06/2019, 07/15/2018 Albumin Creatinine Ratio, Urine 11/05/2022 , 08/12/2020 Dilated Eye Exam 11/24/2022 11/24/2021, 09/2019, 08/24/2018, Additional history exists Depression Screening 03/06/2023 03/06/2022, 11/05/2021, 01/15/2021, Additional history exists Breast Cancer Screening-Mammogram 03/03/2024 03/03/2023, 11/14/2021, 04/24/2020, Additional history exists Influenza Vaccine (#1) 2025 9, 07/21/2018, 10/18/2016, Additional history exists Hemoglobin A1C 12/06/2025 06/05/2025, 02/16, 11/05/2021, Additional history exists Lipid Panel 06/07/2026 06/07/2025, 05/18, 05/21/2025, Additional history exists eGFR 07/26/2026 07/26/2025, 06/2025, 07/25/2025, Additional history exists DTaP/Tdap/Td Vaccine (2 - Td or Tdap) 07/26/2029 07/26/2019 Procedures Procedure Name Priority Date/Time Associated Diagnosis Comments DISCHARGE DRESSING Routine 08/02/2025 11 :26 AM CDT EGFR Timed 07/26/2025 12:13 PM CDT BASIC METABOLIC PANEL Timed 07/26/2025 12:13 PM CDT POCT GLUCOSE DEVICE Routine 07/26/2025 1 1:53 AM CDT POCT GLUCOSE DEVICE Routine 07/26/2025 7 :58 AM CDT EGFR Routine 07/26/2025 6:33 AM CDT CBC WITHOUT DIFFERENTIAL Routine 07/26/2025 6:33 AM CDT BASIC METABOLIC PANEL Routine 07/26/2025 6:33 AM CDT POCT GLUCOSE DEVICE Routine 07/26/2025 2 :25 AM CDT POCT GLUCOSE DEVICE Routine 07/25/2025 9 :24 PM CDT POCT GLUCOSE DEVICE Routine 07/25/2025 4 :27 PM CDT POCT GLUCOSE DEVICE Routine 07/25/2025 1 0:53 AM CDT POCT GLUCOSE DEVICE Routine 07/25/2025 7 :34 AM CDT EGFR Routine 07/25/2025 5:46 AM CDT CBC WITHOUT DIFFERENTIAL Routine 07/25/2025 5:46 AM CDT BASIC METABOLIC PANEL Routine 07/25/2025 5:46 AM CDT POCT GLUCOSE DEVICE Routine 07/25/2025 2 :39 AM CDT POCT GLUCOSE DEVICE Routine 07/24/2025 8 :21 PM CDT POCT GLUCOSE DEVICE Routine 07/24/2025 4 :35 PM CDT POCT GLUCOSE DEVICE Routine 07/24/2025 1 1:17 AM CDT POCT GLUCOSE DEVICE Routine 07/24/2025 7 :58 AM CDT EGFR Routine 07/24/2025 4:53 AM CDT CBC WITHOUT DIFFERENTIAL Routine 07/24/2025 4:53 AM CDT BASIC METABOLIC PANEL Routine 07/24/2025 4:53 AM CDT POCT GLUCOSE DEVICE Routine 07/24/2025 2 :34 AM CDT POCT GLUCOSE DEVICE Routine 07/23/2025 8 :40 PM CDT POCT GLUCOSE DEVICE Routine 07/23/2025 5 :08 PM CDT POCT GLUCOSE DEVICE Routine 07/23/2025 1 1:36 AM CDT POCT GLUCOSE DEVICE Routine 07/23/2025 7 :35 AM CDT EGFR Routine 07/23/2025 5:10 AM CDT CBC WITHOUT DIFFERENTIAL Routine 07/23/2025 5:10 AM CDT BASIC METABOLIC PANEL Routine 07/23/2025 5:10 AM CDT POCT GLUCOSE DEVICE Routine 07/23/2025 2 :37 AM CDT POCT GLUCOSE DEVICE Routine 07/22/2025 7 :54 PM CDT POCT GLUCOSE DEVICE Routine 07/22/2025 4 :48 PM CDT POCT GLUCOSE DEVICE Routine 07/22/2025 1 1:39 AM CDT POCT GLUCOSE DEVICE Routine 07/22/2025 7 :41 AM CDT EGFR Routine 07/22/2025 5:22 AM CDT CBC WITHOUT DIFFERENTIAL Routine 07/22/2025 5:22 AM CDT BASIC METABOLIC PANEL Routine 07/22/2025 5:22 AM CDT POCT GLUCOSE DEVICE Routine 07/22/2025 3 :07 AM CDT POCT GLUCOSE DEVICE Routine 07/21/2025 7 :43 PM CDT POCT GLUCOSE DEVICE Routine 07/21/2025 4 :21 PM CDT POCT GLUCOSE DEVICE Routine 07/21/2025 1 1:27 AM CDT POCT GLUCOSE DEVICE Routine 07/21/2025 7 :53 AM CDT EGFR Routine 07/21/2025 5:45 AM CDT CBC WITHOUT DIFFERENTIAL Routine 07/21/2025 5:45 AM CDT BASIC METABOLIC PANEL Routine 07/21/2025 5:45 AM CDT POCT GLUCOSE DEVICE Routine 07/21/2025 2 :27 AM CDT POCT GLUCOSE DEVICE Routine 07/20/2025 9 :29 PM CDT POCT GLUCOSE DEVICE Routine 07/20/2025 7 :19 PM CDT POCT GLUCOSE DEVICE Routine 07/20/2025 4 :38 PM CDT EGFR STAT 07/20/2025 3:03 PM CDT CREATININE STAT 07/20/2025 3:03 PM CDT HEPATIC FUNCTION PANEL STAT 07/20/2025 3:03 PM CDT CBC WITHOUT DIFFERENTIAL STAT 07/20/2025 3:03 PM CDT PROTIME-INR STAT 07/20/2025 3:03 PM CDT POCT GLUCOSE DEVICE Routine 07/20/2025 1 1:33 AM CDT VANCOMYCIN LEVEL TROUGH Timed 07/20/2025 10:14 AM CDT POCT GLUCOSE DEVICE Routine 07/20/2025 7 :46 AM CDT EGFR Timed 07/20/2025 6:05 AM CDT CREATININE Timed 07/20/2025 6:05 AM CDT POCT GLUCOSE DEVICE Routine 07/20/2025 1 :37 AM CDT POCT GLUCOSE DEVICE Routine 07/19/2025 8 :54 PM CDT POCT GLUCOSE DEVICE Routine 07/19/2025 4 :43 PM CDT POCT GLUCOSE DEVICE Routine 07/19/2025 1 1:39 AM CDT POCT GLUCOSE DEVICE Routine 07/19/2025 7 :56 AM CDT EGFR Routine 07/19/2025 5:15 AM CDT DIFFERENTIAL AUTO Routine 07/19/2025 5:1 5 AM CDT COMPREHENSIVE METABOLIC PANEL Routine 07/19/2025 5:15 AM CDT CBC WITH AUTO DIFFERENTIAL Routine 07/19/2025 5:15 AM CDT POCT GLUCOSE DEVICE Routine 07/19/2025 2 :12 AM CDT POCT GLUCOSE DEVICE Routine 07/18/2025 8 :54 PM CDT POCT GLUCOSE DEVICE Routine 07/18/2025 4 :57 PM CDT RESPIRATORY PATHOGEN PANEL Routine 07/18/2025 3:51 PM CDT XR CHEST 1 VIEW IP Routine 07/18/2025 2:45 PM CDT POCT GLUCOSE DEVICE Routine 07/18/2025 1 2:09 PM CDT POCT GLUCOSE DEVICE Routine 07/18/2025 7 :59 AM CDT PRO B-TYPE NATRIURETIC PEPTIDE Add-On 07/18/2025 4:36 AM CDT EGFR Routine 07/18/2025 4:36 AM CDT DIFFERENTIAL AUTO Routine 07/18/2025 4:3 6 AM CDT COMPREHENSIVE METABOLIC PANEL Routine 07/18/2025 4:36 AM CDT CBC WITH AUTO DIFFERENTIAL Routine 07/18/2025 4:36 AM CDT POCT GLUCOSE DEVICE Routine 07/18/2025 1 :59 AM CDT VANCOMYCIN LEVEL TROUGH Timed 07/17/2025 9:06 PM CDT POCT GLUCOSE DEVICE Routine 07/17/2025 7 :39 PM CDT POCT GLUCOSE DEVICE Routine 07/17/2025 4 :40 PM CDT POCT GLUCOSE DEVICE Routine 07/17/2025 1 1:28 AM CDT POCT GLUCOSE DEVICE Routine 07/17/2025 7 :38 AM CDT EGFR Routine 07/17/2025 5:44 AM CDT DIFFERENTIAL AUTO Routine 07/17/2025 5:4 4 AM CDT COMPREHENSIVE METABOLIC PANEL Routine 07/17/2025 5:44 AM CDT CBC WITH AUTO DIFFERENTIAL Routine 07/17/2025 5:44 AM CDT POCT GLUCOSE DEVICE Routine 07/17/2025 2 :06 AM CDT POCT GLUCOSE DEVICE Routine 07/16/2025 8 :50 PM CDT POCT GLUCOSE DEVICE Routine 07/16/2025 4 :51 PM CDT POCT GLUCOSE DEVICE Routine 07/16/2025 1 2:06 PM CDT POCT GLUCOSE DEVICE Routine 07/16/2025 7 :54 AM CDT EGFR Routine 07/16/2025 7:45 AM CDT DIFFERENTIAL AUTO Routine 07/16/2025 7:4 5 AM CDT VANCOMYCIN LEVEL TROUGH Timed 07/16/2025 7:45 AM CDT COMPREHENSIVE METABOLIC PANEL Routine 07/16/2025 7:45 AM CDT CBC WITH AUTO DIFFERENTIAL Routine 07/16/2025 7:45 AM CDT POCT GLUCOSE DEVICE Routine 07/16/2025 5 :28 AM CDT POCT GLUCOSE DEVICE Routine 07/16/2025 2 :18 AM CDT POCT GLUCOSE DEVICE Routine 07/15/2025 9 :53 PM CDT POCT GLUCOSE DEVICE Routine 07/15/2025 4 :32 PM CDT POCT GLUCOSE DEVICE Routine 07/15/2025 1 1:34 AM CDT POCT GLUCOSE DEVICE Routine 07/15/2025 7 :25 AM CDT EGFR Routine 07/15/2025 4:19 AM CDT DIFFERENTIAL AUTO Routine 07/15/2025 4:1 9 AM CDT MAGNESIUM Routine 07/15/2025 4:19 AM CDT COMPREHENSIVE METABOLIC PANEL Routine 07/15/2025 4:19 AM CDT CBC WITH AUTO DIFFERENTIAL Routine 07/15/2025 4:19 AM CDT POCT GLUCOSE DEVICE Routine 07/15/2025 2 :34 AM CDT URINALYSIS, MICROSCOPIC ONLY STAT 07/14/2025 10:44 PM CDT URINE CULTURE STAT 07/14/2025 10:44 PM CDT URINALYSIS AND REFLEX TO MICROSCOPIC AND CULTURE STAT 07/14/2025 10:44 PM CDT POCT GLUCOSE DEVICE Routine 07/14/2025 8 :00 PM CDT POCT GLUCOSE DEVICE Routine 07/14/2025 6 :[address] ABDOMEN PELVIS W CONTRAST ED 07/14/2025 4:14 PM CDT XR CHEST 1 VIEW ED 07/14/2025 4:07 PM CDT BLOOD CULTURE STAT 07/14/2025 2:51 PM CDT BLOOD CULTURE STAT 07/14/2025 2:51 PM CDT EGFR STAT 07/14/2025 2:26 PM CDT DIFFERENTIAL AUTO STAT 07/14/2025 2:2 6 PM CDT SEPSIS LACTATE WITH REFLEX STAT 07/14/2025 2:26 PM CDT COMPREHENSIVE METABOLIC PANEL STAT 07/14/2025 2:26 PM CDT CBC WITH AUTO DIFFERENTIAL STAT 07/14/2025 2:26 PM CDT APPLY DRESSING Routine 07/03/2025 10:51 AM CDT POCT GLUCOSE DEVICE Routine 06/22/2025 1 2:19 PM CDT POCT GLUCOSE DEVICE Routine 06/22/2025 6 :58 AM CDT POCT GLUCOSE DEVICE Routine 06/22/2025 2 :40 AM CDT POCT GLUCOSE DEVICE Routine 06/21/2025 8 :16 PM CDT POCT GLUCOSE DEVICE Routine 06/21/2025 5 :59 PM CDT POCT GLUCOSE DEVICE Routine 06/21/2025 1 1:57 AM CDT POCT GLUCOSE DEVICE Routine 06/21/2025 7 :48 AM CDT POCT GLUCOSE DEVICE Routine 06/21/2025 6 :07 AM CDT POCT GLUCOSE DEVICE Routine 06/21/2025 1 :41 AM CDT POCT GLUCOSE DEVICE Routine 06/20/2025 9 :11 PM CDT POCT GLUCOSE DEVICE Routine 06/20/2025 5 :13 PM CDT POCT GLUCOSE DEVICE Routine 06/20/2025 1 2:25 PM CDT POCT GLUCOSE DEVICE Routine 06/20/2025 8 :39 AM CDT POCT GLUCOSE DEVICE Routine 06/20/2025 1 :46 AM CDT INFECTION PREVENTION NIKHIL AURIS PCR, SURVEILLANCE Routine 06/20/2025 12:31 AM CDT MANUAL DIFFERENTIAL Routine 06/19/2025 1 0:31 PM CDT EGFR Routine 06/19/2025 10:31 PM CDT ALBUMIN Routine 06/19/2025 10:31 PM CDT PREALBUMIN Routine 06/19/2025 10:31 PM CDT PHOSPHORUS Routine 06/19/2025 10:31 PM CDT CBC WITHOUT DIFFERENTIAL Routine 06/19/2025 10:31 PM CDT BASIC METABOLIC PANEL Routine 06/19/2025 10:31 PM CDT POCT GLUCOSE DEVICE Routine 06/19/2025 8 :13 PM CDT POCT GLUCOSE DEVICE Routine 06/19/2025 5 :10 PM CDT POCT GLUCOSE DEVICE Routine 06/19/2025 1 2:10 PM CDT POCT GLUCOSE DEVICE Routine 06/19/2025 8 :54 AM CDT POCT GLUCOSE DEVICE Routine 06/19/2025 1 2:47 AM CDT EGFR Routine 06/18/2025 9:47 PM CDT PHOSPHORUS Routine 06/18/2025 9:47 PM CDT CBC WITHOUT DIFFERENTIAL Routine 06/18/2025 9:47 PM CDT BASIC METABOLIC PANEL Routine 06/18/2025 9:47 PM CDT POCT GLUCOSE DEVICE Routine 06/18/2025 7 :50 PM CDT POCT GLUCOSE DEVICE Routine 06/18/2025 4 :44 PM CDT POCT GLUCOSE DEVICE Routine 06/18/2025 1 1:44 AM CDT POCT GLUCOSE DEVICE Routine 06/18/2025 8 :00 AM CDT POCT GLUCOSE DEVICE Routine 06/18/2025 2 :19 AM CDT POCT GLUCOSE DEVICE Routine 06/17/2025 8 :06 PM CDT EGFR Routine 06/17/2025 7:36 PM CDT PHOSPHORUS Routine 06/17/2025 7:36 PM CDT MAGNESIUM Routine 06/17/2025 7:36 PM CDT CBC WITHOUT DIFFERENTIAL Routine 06/17/2025 7:36 PM CDT BASIC METABOLIC PANEL Routine 06/17/2025 7:36 PM CDT POCT GLUCOSE DEVICE Routine 06/17/2025 6 :23 PM CDT POCT GLUCOSE DEVICE Routine 06/17/2025 1 2:51 PM CDT POCT GLUCOSE DEVICE Routine 06/17/2025 9 :39 AM CDT POCT GLUCOSE DEVICE Routine 06/17/2025 1 :54 AM CDT EGFR Routine 06/16/2025 10:31 PM CDT PHOSPHORUS Routine 06/16/2025 10:31 PM CDT MAGNESIUM Routine 06/16/2025 10:31 PM CDT CBC WITHOUT DIFFERENTIAL Routine 06/16/2025 10:31 PM CDT BASIC METABOLIC PANEL Routine 06/16/2025 10:31 PM CDT POCT GLUCOSE DEVICE Routine 06/16/2025 9 :01 PM CDT POCT GLUCOSE DEVICE Routine 06/16/2025 3 :57 PM CDT POCT GLUCOSE DEVICE Routine 06/16/2025 1 1:45 AM CDT POCT GLUCOSE DEVICE Routine 06/16/2025 7 :51 AM CDT EGFR Routine 06/15/2025 9:56 PM CDT PHOSPHORUS Routine 06/15/2025 9:56 PM CDT MAGNESIUM Routine 06/15/2025 9:56 PM CDT CBC WITHOUT DIFFERENTIAL Routine 06/15/2025 9:56 PM CDT BASIC METABOLIC PANEL Routine 06/15/2025 9:56 PM CDT POCT GLUCOSE DEVICE Routine 06/15/2025 8 :05 PM CDT POCT GLUCOSE DEVICE Routine 06/15/2025 5 :35 PM CDT COVID-19 CORONAVIRUS RNA Routine 06/15/2025 12:21 PM CDT POCT GLUCOSE DEVICE Routine 06/15/2025 1 2:05 PM CDT POCT GLUCOSE DEVICE Routine 06/15/2025 7 :52 AM CDT SODIUM, WHOLE BLOOD STAT 06/15/2025 3 :46 AM CDT INFECTION PREVENTION NIKHIL AURIS PCR, SURVEILLANCE Routine 06/15/2025 3:46 AM CDT EGFR Routine 06/14/2025 8:41 PM CDT PHOSPHORUS Routine 06/14/2025 8:41 PM CDT MAGNESIUM Routine 06/14/2025 8:41 PM CDT CBC WITHOUT DIFFERENTIAL Routine 06/14/2025 8:41 PM CDT BASIC METABOLIC PANEL Routine 06/14/2025 8:41 PM CDT POCT GLUCOSE DEVICE Routine 06/14/2025 7 :42 PM CDT POCT GLUCOSE DEVICE Routine 06/14/2025 4 :59 PM CDT POCT GLUCOSE DEVICE Routine 06/14/2025 1 1:50 AM CDT POCT GLUCOSE DEVICE Routine 06/14/2025 7 :49 AM CDT EGFR Routine 06/13/2025 11:24 PM CDT PHOSPHORUS Routine 06/13/2025 11:24 PM CDT MAGNESIUM Routine 06/13/2025 11:24 PM CDT CBC WITHOUT DIFFERENTIAL Routine 06/13/2025 11:24 PM CDT BASIC METABOLIC PANEL Routine 06/13/2025 11:24 PM CDT POCT GLUCOSE DEVICE Routine 06/13/2025 7 :58 PM CDT POCT GLUCOSE DEVICE Routine 06/13/2025 4 :03 PM CDT POCT GLUCOSE DEVICE Routine 06/13/2025 1 2:11 PM CDT ECG 12-LEAD Routine 06/13/2025 10:56 AM CDT POCT GLUCOSE DEVICE Routine 06/13/2025 8 :01 AM CDT EGFR Routine 06/12/2025 9:05 PM CDT ALBUMIN Routine 06/12/2025 9:05 PM CDT PREALBUMIN Timed 06/12/2025 9:05 PM CDT PHOSPHORUS Routine 06/12/2025 9:05 PM CDT MAGNESIUM Routine 06/12/2025 9:05 PM CDT CBC WITHOUT DIFFERENTIAL Routine 06/12/2025 9:05 PM CDT BASIC METABOLIC PANEL Routine 06/12/2025 9:05 PM CDT POCT GLUCOSE DEVICE Routine 06/12/2025 9 :01 PM CDT POCT GLUCOSE DEVICE Routine 06/12/2025 5 :22 PM CDT [place] 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 Routine 06/12/2025 3:36 PM CDT [place] AN ELECTIVE ENDOTRACHEAL AIRWAY Routine 06/12/2025 3:36 PM CDT DEBRIDEMENT - PERINEUM 06/12/2025 3:02 PM CDT Necrotizing soft tissue infection BMI 50.0-59.9, adult (HCC) Case Notes 06/11/25, Sent email to [place] resource nurse about blank dpc. [facility] Special Needs lithotomy POCT GLUCOSE DEVICE Routine 06/12/2025 2 :51 PM CDT POCT GLUCOSE DEVICE Routine 06/12/2025 1 :11 PM CDT INFECTION PREVENTION VRE CULTURE Routine 06/12/2025 9:46 AM CDT C. DIFFICILE TESTING STAT 06/12/2025 9:46 AM CDT POCT GLUCOSE DEVICE Routine 06/12/2025 7 :29 AM CDT POCT GLUCOSE DEVICE Routine 06/12/2025 4 :10 AM CDT POCT GLUCOSE DEVICE Routine 06/12/2025 1 2:29 AM CDT EGFR Routine 06/11/2025 8:41 PM CDT PHOSPHORUS Routine 06/11/2025 8:41 PM CDT MAGNESIUM Routine 06/11/2025 8:41 PM CDT CBC WITHOUT DIFFERENTIAL Routine 06/11/2025 8:41 PM CDT BASIC METABOLIC PANEL Routine 06/11/2025 8:41 PM CDT POCT GLUCOSE DEVICE Routine 06/11/2025 7 :57 PM CDT POCT GLUCOSE DEVICE Routine 06/11/2025 4 :59 PM CDT POCT GLUCOSE DEVICE Routine 06/11/2025 3 :02 PM CDT POCT GLUCOSE DEVICE Routine 06/11/2025 2 :20 PM CDT POCT GLUCOSE DEVICE Routine 06/11/2025 1 :05 PM CDT POCT GLUCOSE DEVICE Routine 06/11/2025 1 2:09 PM CDT POCT GLUCOSE DEVICE Routine 06/11/2025 1 1:13 AM CDT POCT GLUCOSE DEVICE Routine 06/11/2025 1 0:08 AM CDT POCT GLUCOSE DEVICE Routine 06/11/2025 9 :23 AM CDT POCT GLUCOSE DEVICE Routine 06/11/2025 7 :59 AM CDT POCT GLUCOSE DEVICE Routine 06/11/2025 6 :02 AM CDT POCT GLUCOSE DEVICE Routine 06/11/2025 4 :30 AM CDT POCT GLUCOSE DEVICE Routine 06/11/2025 3 :37 AM CDT POCT GLUCOSE DEVICE Routine 06/11/2025 2 :29 AM CDT POCT GLUCOSE DEVICE Routine 06/11/2025 1 :26 AM CDT POCT GLUCOSE DEVICE Routine 06/11/2025 1 2:16 AM CDT POCT GLUCOSE DEVICE Routine 06/10/2025 1 1:00 PM CDT POCT GLUCOSE DEVICE Routine 06/10/2025 9 :52 PM CDT POCT GLUCOSE DEVICE Routine 06/10/2025 8 :58 PM CDT EGFR Routine 06/10/2025 8:47 PM CDT PHOSPHORUS Routine 06/10/2025 8:47 PM CDT MAGNESIUM Routine 06/10/2025 8:47 PM CDT CBC WITHOUT DIFFERENTIAL Routine 06/10/2025 8:47 PM CDT BASIC METABOLIC PANEL Routine 06/10/2025 8:47 PM CDT POCT GLUCOSE DEVICE Routine 06/10/2025 8 :03 PM CDT POCT GLUCOSE DEVICE Routine 06/10/2025 6 :55 PM CDT POCT GLUCOSE DEVICE Routine 06/10/2025 6 :01 PM CDT POCT GLUCOSE DEVICE Routine 06/10/2025 4 :52 PM CDT [place] 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 Routine 06/10/2025 4:40 PM CDT [place] AN ELECTIVE ENDOTRACHEAL AIRWAY Routine 06/10/2025 4:40 PM CDT POCT HCG, URINE Routine 06/10/2025 4:16 PM CDT PLACEMENT WOUND VACUUM 06/10/2025 4:14 PM CDT Necrotizing soft tissue infection DEBRIDEMENT - PERINEUM 06/10/2025 4:14 PM CDT Necrotizing soft tissue infection POCT GLUCOSE DEVICE Routine 06/10/2025 3 :36 PM CDT POCT GLUCOSE DEVICE Routine 06/10/2025 2 :22 PM CDT POCT GLUCOSE DEVICE Routine 06/10/2025 1 :11 PM CDT POCT GLUCOSE DEVICE Routine 06/10/2025 1 2:19 PM CDT POCT GLUCOSE DEVICE Routine 06/10/2025 1 1:13 AM CDT POCT GLUCOSE DEVICE Routine 06/10/2025 1 0:09 AM CDT POCT GLUCOSE DEVICE Routine 06/10/2025 9 :13 AM CDT POCT GLUCOSE DEVICE Routine 06/10/2025 7 :56 AM CDT POCT GLUCOSE DEVICE Routine 06/10/2025 6 :56 AM CDT POCT GLUCOSE DEVICE Routine 06/10/2025 6 :11 AM CDT POCT GLUCOSE DEVICE Routine 06/10/2025 4 :50 AM CDT POCT GLUCOSE DEVICE Routine 06/10/2025 4 :06 AM CDT POCT GLUCOSE DEVICE Routine 06/10/2025 3 :11 AM CDT POCT GLUCOSE DEVICE Routine 06/10/2025 1 :58 AM CDT POCT GLUCOSE DEVICE Routine 06/10/2025 1 :07 AM CDT POCT GLUCOSE DEVICE Routine 06/10/2025 1 2:08 AM CDT POCT GLUCOSE DEVICE Routine 06/09/2025 1 1:11 PM CDT POCT GLUCOSE DEVICE Routine 06/09/2025 1 0:03 PM CDT POCT GLUCOSE DEVICE Routine 06/09/2025 9 :06 PM CDT EGFR Routine 06/09/2025 8:07 PM CDT PHOSPHORUS Routine 06/09/2025 8:07 PM CDT MAGNESIUM Routine 06/09/2025 8:07 PM CDT CBC WITHOUT DIFFERENTIAL Routine 06/09/2025 8:07 PM CDT BASIC METABOLIC PANEL Routine 06/09/2025 8:07 PM CDT POCT GLUCOSE DEVICE Routine 06/09/2025 8 :05 PM CDT POCT GLUCOSE DEVICE Routine 06/09/2025 7 :09 PM CDT POCT GLUCOSE DEVICE Routine 06/09/2025 6 :17 PM CDT POCT GLUCOSE DEVICE Routine 06/09/2025 5 :14 PM CDT POCT GLUCOSE DEVICE Routine 06/09/2025 4 :19 PM CDT POCT GLUCOSE DEVICE Routine 06/09/2025 3 :09 PM CDT POCT GLUCOSE DEVICE Routine 06/09/2025 2 :11 PM CDT POCT GLUCOSE DEVICE Routine 06/09/2025 1 :15 PM CDT POCT GLUCOSE DEVICE Routine 06/09/2025 1 2:00 PM CDT POCT GLUCOSE DEVICE Routine 06/09/2025 1 1:03 AM CDT POCT GLUCOSE DEVICE Routine 06/09/2025 1 0:03 AM CDT POCT GLUCOSE DEVICE Routine 06/09/2025 9 :18 AM CDT POCT GLUCOSE DEVICE Routine 06/09/2025 8 :02 AM CDT POCT GLUCOSE DEVICE Routine 06/09/2025 6 :53 AM CDT POCT GLUCOSE DEVICE Routine 06/09/2025 6 :10 AM CDT POCT GLUCOSE DEVICE Routine 06/09/2025 4 :58 AM CDT POCT GLUCOSE DEVICE Routine 06/09/2025 4 :07 AM CDT POCT GLUCOSE DEVICE Routine 06/09/2025 3 :01 AM CDT POCT GLUCOSE DEVICE Routine 06/09/2025 2 :06 AM CDT POCT GLUCOSE DEVICE Routine 06/09/2025 1 :02 AM CDT POCT GLUCOSE DEVICE Routine 06/09/2025 1 2:09 AM CDT POCT GLUCOSE DEVICE Routine 06/08/2025 1 1:08 PM CDT POCT GLUCOSE DEVICE Routine 06/08/2025 1 0:05 PM CDT POCT GLUCOSE DEVICE Routine 06/08/2025 9 :11 PM CDT EGFR Routine 06/08/2025 8:49 PM CDT PHOSPHORUS Routine 06/08/2025 8:49 PM CDT MAGNESIUM Routine 06/08/2025 8:49 PM CDT CBC WITHOUT DIFFERENTIAL Routine 06/08/2025 8:49 PM CDT BASIC METABOLIC PANEL Routine 06/08/2025 8:49 PM CDT POCT GLUCOSE DEVICE Routine 06/08/2025 8 :04 PM CDT POCT GLUCOSE DEVICE Routine 06/08/2025 6 :59 PM CDT POCT GLUCOSE DEVICE Routine 06/08/2025 6 :00 PM CDT POCT GLUCOSE DEVICE Routine 06/08/2025 4 :59 PM CDT POCT GLUCOSE DEVICE Routine 06/08/2025 4 :07 PM CDT POCT GLUCOSE DEVICE Routine 06/08/2025 2 :49 PM CDT POCT GLUCOSE DEVICE Routine 06/08/2025 1 2:50 PM CDT POCT GLUCOSE DEVICE Routine 06/08/2025 1 0:57 AM CDT POCT GLUCOSE DEVICE Routine 06/08/2025 1 0:07 AM CDT POCT GLUCOSE DEVICE Routine 06/08/2025 8 :54 AM CDT POCT GLUCOSE DEVICE Routine 06/08/2025 7 :59 AM CDT POCT GLUCOSE DEVICE Routine 06/08/2025 6 :58 AM CDT POCT GLUCOSE DEVICE Routine 06/08/2025 5 :59 AM CDT CRITICAL CARE Routine 06/08/2025 5:57 AM CDT Necrotizing soft tissue infection POCT GLUCOSE DEVICE Routine 06/08/2025 4 :59 AM CDT POCT GLUCOSE DEVICE Routine 06/08/2025 3 :59 AM CDT POCT GLUCOSE DEVICE Routine 06/08/2025 3 :03 AM CDT POCT GLUCOSE DEVICE Routine 06/08/2025 2 :04 AM CDT POCT GLUCOSE DEVICE Routine 06/08/2025 1 2:57 AM CDT POCT GLUCOSE DEVICE Routine 06/08/2025 1 2:04 AM CDT POCT GLUCOSE DEVICE Routine 06/07/2025 1 1:06 PM CDT POCT GLUCOSE DEVICE Routine 06/07/2025 1 0:04 PM CDT POCT GLUCOSE DEVICE Routine 06/07/2025 9 :01 PM CDT LIPID PANEL Routine 06/07/2025 8:02 PM CDT EGFR Routine 06/07/2025 8:02 PM CDT PHOSPHORUS Routine 06/07/2025 8:02 PM CDT MAGNESIUM Routine 06/07/2025 8:02 PM CDT CBC WITHOUT DIFFERENTIAL Routine 06/07/2025 8:02 PM CDT BASIC METABOLIC PANEL Routine 06/07/2025 8:02 PM CDT CRITICAL CARE Routine 06/07/2025 7:41 PM CDT Acute abdominal pain POCT GLUCOSE DEVICE Routine 06/07/2025 7 :33 PM CDT POCT GLUCOSE DEVICE Routine 06/07/2025 6 :52 PM CDT [place] 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 Routine 06/07/2025 5:49 PM CDT [place] AN ELECTIVE ENDOTRACHEAL AIRWAY Routine 06/07/2025 5:49 PM CDT DEBRIDEMENT - PERINEUM 06/07/2025 5:12 PM CDT Necrotizing soft tissue infection Groin abscess POCT GLUCOSE DEVICE Routine 06/07/2025 4 :55 PM CDT POCT GLUCOSE DEVICE Routine 06/07/2025 4 :15 PM CDT POCT GLUCOSE DEVICE Routine 06/07/2025 3 :03 PM CDT POCT GLUCOSE DEVICE Routine 06/07/2025 2 :24 PM CDT POCT GLUCOSE DEVICE Routine 06/07/2025 1 :[address] PELVIS W CONTRAST ED Urgent/IP Urgent 06/07/2025 12:51 PM CDT POCT GLUCOSE DEVICE Routine 06/07/2025 1 2:06 PM CDT POCT GLUCOSE DEVICE Routine 06/07/2025 1 1:00 AM CDT POCT GLUCOSE DEVICE Routine 06/07/2025 9 :54 AM CDT CRITICAL CARE Routine 06/07/2025 6:44 AM CDT Necrotizing fasciitis (HCC) POCT GLUCOSE DEVICE Routine 06/07/2025 1 :59 AM CDT VANCOMYCIN LEVEL TROUGH Timed 06/06/2025 10:29 PM CDT POCT GLUCOSE DEVICE Routine 06/06/2025 8 :51 PM CDT EGFR Routine 06/06/2025 7:52 PM CDT PHOSPHORUS Routine 06/06/2025 7:52 PM CDT MAGNESIUM Routine 06/06/2025 7:52 PM CDT CBC WITHOUT DIFFERENTIAL Routine 06/06/2025 7:52 PM CDT BASIC METABOLIC PANEL Routine 06/06/2025 7:52 PM CDT POCT GLUCOSE DEVICE Routine 06/06/2025 7 :16 PM CDT CRITICAL CARE Routine 06/06/2025 7:00 PM CDT Acute abdominal pain CRITICAL CARE Routine 06/06/2025 3:20 PM CDT Necrotizing fasciitis (HCC) POCT GLUCOSE DEVICE Routine 06/06/2025 2 :30 PM CDT POCT GLUCOSE DEVICE Routine 06/06/2025 1 1:30 AM CDT POCT GLUCOSE DEVICE Routine 06/06/2025 7 :25 AM CDT POCT GLUCOSE DEVICE Routine 06/06/2025 3 :52 AM CDT POCT GLUCOSE DEVICE Routine 06/06/2025 2 :24 AM CDT POCT GLUCOSE DEVICE Routine 06/05/2025 1 1:59 PM CDT POCT GLUCOSE DEVICE Routine 06/05/2025 1 1:09 PM CDT EGFR Routine 06/05/2025 9:06 PM CDT HEMOGLOBIN A1C Routine 06/05/2025 9:06 PM CDT PHOSPHORUS Routine 06/05/2025 9:06 PM CDT MAGNESIUM Routine 06/05/2025 9:06 PM CDT CBC WITHOUT DIFFERENTIAL Routine 06/05/2025 9:06 PM CDT BASIC METABOLIC PANEL Routine 06/05/2025 9:06 PM CDT POCT GLUCOSE DEVICE Routine 06/05/2025 8 :48 PM CDT CRITICAL CARE Routine 06/05/2025 6:49 PM CDT Acute abdominal pain POCT GLUCOSE DEVICE Routine 06/05/2025 6 :33 PM CDT CRITICAL CARE Routine 06/05/2025 5:01 PM CDT Groin abscess TRANSTHORACIC ECHO (TTE) COMPLETE W DOPPLER/CF W CONTRAST Routine 06/05/2025 2:22 PM CDT POCT GLUCOSE DEVICE Routine 06/05/2025 1 :19 PM CDT POCT GLUCOSE DEVICE Routine 06/05/2025 1 2:55 PM CDT POCT GLUCOSE DEVICE Routine 06/05/2025 1 2:07 PM CDT POCT GLUCOSE DEVICE Routine 06/05/2025 1 1:09 AM CDT POCT GLUCOSE DEVICE Routine 06/05/2025 1 0:03 AM CDT POCT GLUCOSE DEVICE Routine 06/05/2025 8 :55 AM CDT POCT GLUCOSE DEVICE Routine 06/05/2025 8 :03 AM CDT POCT GLUCOSE DEVICE Routine 06/05/2025 7 :26 AM CDT POCT GLUCOSE DEVICE Routine 06/05/2025 6 :10 AM CDT POCT GLUCOSE DEVICE Routine 06/05/2025 4 :59 AM CDT POCT GLUCOSE DEVICE Routine 06/05/2025 4 :02 AM CDT POCT GLUCOSE DEVICE Routine 06/05/2025 2 :08 AM CDT POCT GLUCOSE DEVICE Routine 06/05/2025 1 2:08 AM CDT POCT GLUCOSE DEVICE Routine 06/04/2025 1 0:53 PM CDT POCT GLUCOSE DEVICE Routine 06/04/2025 1 0:10 PM CDT EGFR Timed 06/04/2025 9:35 PM CDT PHOSPHORUS Timed 06/04/2025 9:35 PM CDT MAGNESIUM Timed 06/04/2025 9:35 PM CDT CBC WITHOUT DIFFERENTIAL Timed 06/04/2025 9:35 PM CDT BASIC METABOLIC PANEL Timed 06/04/2025 9:35 PM CDT POCT GLUCOSE DEVICE Routine 06/04/2025 8 :56 PM CDT POCT GLUCOSE DEVICE Routine 06/04/2025 8 :08 PM CDT CRITICAL CARE Routine 06/04/2025 6:15 PM CDT Acute abdominal pain POCT GLUCOSE DEVICE Routine 06/04/2025 6 :06 PM CDT CRITICAL CARE Routine 06/04/2025 4:36 PM CDT Necrotizing fasciitis (HCC) POCT GLUCOSE DEVICE Routine 06/04/2025 4 :24 PM CDT TISSUE AEROBIC AND ANAEROBIC CULTURE AND GRAM STAIN STAT 06/04/2025 3:55 PM CDT POCT GLUCOSE DEVICE Routine 06/04/2025 3 :33 PM CDT [place] 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 Routine 06/04/2025 3:31 PM CDT [place] AN ELECTIVE ENDOTRACHEAL AIRWAY Routine 06/04/2025 3:31 PM CDT DEBRIDEMENT - PERINEUM 06/04/2025 2:57 PM CDT Necrotizing soft tissue infection Case Notes [facility] [phone] Special Needs lithotomy POCT GLUCOSE DEVICE Routine 06/04/2025 2 :03 PM CDT POCT GLUCOSE DEVICE Routine 06/04/2025 1 :03 PM CDT POCT GLUCOSE DEVICE Routine 06/04/2025 1 2:05 PM CDT POCT GLUCOSE DEVICE Routine 06/04/2025 1 1:08 AM CDT POCT GLUCOSE DEVICE Routine 06/04/2025 1 0:01 AM CDT POCT GLUCOSE DEVICE Routine 06/04/2025 9 :22 AM CDT EGFR Timed 06/04/2025 8:24 AM CDT PHOSPHORUS Timed 06/04/2025 8:24 AM CDT MAGNESIUM Timed 06/04/2025 8:24 AM CDT CBC WITHOUT DIFFERENTIAL Timed 06/04/2025 8:24 AM CDT BASIC METABOLIC PANEL Timed 06/04/2025 8:24 AM CDT POCT GLUCOSE DEVICE Routine 06/04/2025 7 :36 AM CDT POCT GLUCOSE DEVICE Routine 06/04/2025 3 :57 AM CDT POCT GLUCOSE DEVICE Routine 06/03/2025 1 1:33 PM CDT EGFR Timed 06/03/2025 10:05 PM CDT PHOSPHORUS Timed 06/03/2025 10:05 PM CDT MAGNESIUM Timed 06/03/2025 10:05 PM CDT CBC WITHOUT DIFFERENTIAL Timed 06/03/2025 10:05 PM CDT BASIC METABOLIC PANEL Timed 06/03/2025 10:05 PM CDT THYROID FUNCTION CASCADE Routine 06/03/2025 10:05 PM CDT CRITICAL CARE Routine 06/03/2025 7:24 PM CDT Acute abdominal pain POCT GLUCOSE DEVICE Routine 06/03/2025 6 :48 PM CDT POCT GLUCOSE DEVICE Routine 06/03/2025 3 :30 PM CDT CRITICAL CARE Routine 06/03/2025 3:00 PM CDT Necrotizing fasciitis (HCC) POCT GLUCOSE DEVICE Routine 06/03/2025 2 :45 PM CDT POCT GLUCOSE DEVICE Routine 06/03/2025 1 :02 PM CDT POCT GLUCOSE DEVICE Routine 06/03/2025 1 2:02 PM CDT POCT GLUCOSE DEVICE Routine 06/03/2025 1 1:13 AM CDT POCT GLUCOSE DEVICE Routine 06/03/2025 8 :53 AM CDT POCT GLUCOSE DEVICE Routine 06/03/2025 6 :53 AM CDT POCT GLUCOSE DEVICE Routine 06/03/2025 4 :54 AM CDT POCT GLUCOSE DEVICE Routine 06/03/2025 3 :51 AM CDT POCT GLUCOSE DEVICE Routine 06/03/2025 2 :51 AM CDT POCT GLUCOSE DEVICE Routine 06/03/2025 1 2:57 AM CDT POCT GLUCOSE DEVICE Routine 06/02/2025 1 1:53 PM CDT POCT GLUCOSE DEVICE Routine 06/02/2025 1 0:55 PM CDT POCT GLUCOSE DEVICE Routine 06/02/2025 9 :56 PM CDT LIPID PANEL STAT 06/02/2025 9:54 PM CDT EGFR STAT 06/02/2025 9:54 PM CDT PHOSPHORUS STAT 06/02/2025 9:54 PM CDT MAGNESIUM STAT 06/02/2025 9:54 PM CDT CBC WITHOUT DIFFERENTIAL STAT 06/02/2025 9:54 PM CDT BASIC METABOLIC PANEL STAT 06/02/2025 9:54 PM CDT POCT GLUCOSE DEVICE Routine 06/02/2025 8 :55 PM CDT POCT GLUCOSE DEVICE Routine 06/02/2025 8 :01 PM CDT CRITICAL CARE Routine 06/02/2025 7:10 PM CDT Acute abdominal pain POCT GLUCOSE DEVICE Routine 06/02/2025 6 :49 PM CDT POCT GLUCOSE DEVICE Routine 06/02/2025 5 :07 PM CDT EGFR Timed 06/02/2025 4:35 PM CDT PHOSPHORUS Timed 06/02/2025 4:35 PM CDT MAGNESIUM Timed 06/02/2025 4:35 PM CDT BASIC METABOLIC PANEL Timed 06/02/2025 4:35 PM CDT POCT GLUCOSE DEVICE Routine 06/02/2025 4 :28 PM CDT POCT GLUCOSE DEVICE Routine 06/02/2025 3 :16 PM CDT POCT GLUCOSE DEVICE Routine 06/02/2025 2 :34 PM CDT EGFR Routine 06/02/2025 1:35 PM CDT COMPREHENSIVE METABOLIC PANEL Routine 06/02/2025 1:35 PM CDT CBC WITHOUT DIFFERENTIAL Routine 06/02/2025 1:35 PM CDT BETA-HYDROXYBUTYRATE Routine 06/02/2025 1:35 PM CDT POCT GLUCOSE DEVICE Routine 06/02/2025 1 2:54 PM CDT POCT GLUCOSE DEVICE Routine 06/02/2025 1 1:50 AM CDT POCT GLUCOSE DEVICE Routine 06/02/2025 1 0:54 AM CDT POCT GLUCOSE DEVICE Routine 06/02/2025 9 :44 AM CDT MYCOLOGY (FUNGAL) CULTURE AND STAIN Routine 06/02/2025 9:26 AM CDT AEROBIC AND ANAEROBIC CULTURE AND GRAM STAIN Routine 06/02/2025 9:26 AM CDT MYCOLOGY (FUNGAL) CULTURE AND STAIN Routine 06/02/2025 9:26 AM CDT TISSUE AEROBIC AND ANAEROBIC CULTURE AND GRAM STAIN Routine 06/02/2025 9:26 AM CDT POCT GLUCOSE DEVICE Routine 06/02/2025 9 :06 AM CDT POCT GLUCOSE DEVICE Routine 06/02/2025 8 :35 AM CDT ANESTHESIA INTUBATION Routine 06/02/2025 8:24 AM CDT IRRIGATION AND DEBRIDEMENT 06/02/2025 7:43 AM CDT Necrotizing soft tissue infection CRITICAL CARE Routine 06/02/2025 6:48 AM CDT Necrotizing fasciitis (HCC) POCT GLUCOSE DEVICE Routine 06/02/2025 6 :36 AM CDT URINALYSIS, MICROSCOPIC ONLY STAT 06/02/2025 6:11 AM CDT B CHECK SAMPLE STAT 06/02/2025 6:11 AM CDT URINALYSIS AND REFLEX TO MICROSCOPIC AND CULTURE STAT 06/02/2025 6:11 AM CDT POCT KETONE, BLOOD Routine 06/02/2025 5: 25 AM CDT POCT GLUCOSE DEVICE Routine 06/02/2025 5 :24 AM CDT COMPREHENSIVE METABOLIC PANEL STAT 06/02/2025 5:22 AM CDT EGFR STAT 06/02/2025 5:22 AM CDT DIFFERENTIAL AUTO STAT 06/02/2025 5:2 2 AM CDT BLOOD GAS, VENOUS STAT 06/02/2025 5:2 2 AM CDT ERYTHROCYTE SEDIMENTATION RATE STAT 06/02/2025 5:22 AM CDT CRP (ACUTE PHASE) STAT 06/02/2025 5:2 2 AM CDT PROTIME-INR STAT 06/02/2025 5:22 AM CDT APTT STAT 06/02/2025 5:22 AM CDT TYPE AND SCREEN STAT 06/02/2025 5:22 AM CDT CBC WITH AUTO DIFFERENTIAL STAT 06/02/2025 5:22 AM CDT SEPSIS LACTATE WITH REFLEX STAT 06/02/2025 5:22 AM CDT BLOOD CULTURE STAT 06/02/2025 5:22 AM CDT BLOOD CULTURE STAT 06/02/2025 5:[address] BODY OUTSIDE CONSULT Routine 06/02/2025 5:21 AM CDT DIABETIC EYE EXAM Routine 11/24/2021 SCREENING MAMMOGRAM BILATERAL W TIM Schedule Routine, Read Routine (OP Routine) 11/14/2021 9:21 AM 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 us Terry Javier MD NURSING WOUND CARE Final Re sult * eGFR (07/26/2025 12:13 PM CDT) eGFR >90 >=60 mL/min/1. 73 m2 Comment: Interpretive Data Reference Interval Normal >/= 90 mL/min/1.73m2 Mildly decreased* 60 - 89 mL/min/1.73m2 Mildly to moderately decreased 45 - 59 mL/min/1.73m2 Moderately to severely decreased 30 - 44 mL/min/1.73m2 Severely decreased 15 - 29 mL/min/1.73m2 Kidney Failure < 15 mL/min/1.73m2 *Relative to young adult level Estimated glomerular filtration rate is determined by the 2020 CKD-EPI equation recommended by the National Kidney Foundation (A Unifying Approach to GFR Estimation: Recommendations of the NKF-ASK Task Force on Reassessing the Inclusion of Race in Diagnosing Kidney Disease, JASN 2020). The CKD-EPI equation should not be used for patients with unstable renal function and has not been validated in children and those over 70. Current interpretive data was last reviewed 2021. Blood 07/26/2025 12:1 3 PM CDT 07/26/2025 12:20 PM CDT Miranda Chambers MD LAB BLOOD ORDERABLES Final Result [facility] ([place]) 1 [facility] [place] [place] [address] * (ABNORMAL) Basic metabolic panel (07/26/2025 12:13 PM CDT) Sodium 138 135 - 145 mmol/L [facility] ([place]) Potassium, pl 4.0 3.3 - 4.9 mmol/L [facility] ([place]) Chloride 99 97 - 110 mmol/L [facility] ([place]) CO2 29 22 - 32 mmol/L [facility] ([place]) Anion gap 10 2 - 15 mmol/L [facility] ([place]) BUN 25 6 - 25 mg/dL [facility] ([place]) Creatinine 0.51(L) 0.60 - 1.10 mg/dL [facility] ([place]) Glucose 207(H) 70 - 199 mg/dL [facility] ([place]) Comment: Interpretive Data Fasting glucose >/= 126 mg/dl is diagnostic for diabetes. Fasting is defined as no caloric intake for at least 8 hours. Fasting glucose between 100 mg/dl to 125 mg/dl is diagnostic of prediabetes. In a patient with classic symptoms of hyperglycemia or hyperglycemic crisis, a random glucose >/= 200 mg/dl is diagnostic for diabetes. In the absence of unequivocal hyperglycemia, results should be confirmed by repeat testing. The classification and Diagnosis of Diabetes Diabetes Care 2021; 46: S19-S40. Current interpretive data was last revised 2022. Calcium 9.7 8.5 - 10.3 mg/dL [facility] ([place]) Blood 07/26/2025 12:1 3 PM CDT 07/26/2025 12:20 PM CDT Miranda Chambers MD LAB BLOOD ORDERABLES Final Result [facility] ([place]) 1 [facility] [place] [place] [address] * POCT glucose (07/26/2025 11:53 AM CDT) Glucose, POC 199 70 - 199 mg/dL Blood 07/26/2025 11:5 3 AM CDT 07/26/2025 11:53 AM CDT Miranda Chambers MD LAB POCT ORDERABLES - DEVICE Final Result [facility] ([place]) 1 [facility] [place] [place] [address] * (ABNORMAL) POCT glucose (07/26/2025 7:58 AM CDT) Glucose, POC 202(H) 70 - 199 mg/dL Blood 07/26/2025 7:58 AM CDT 07/26/2025 7:58 AM CDT Miranda Chambers MD LAB POCT ORDERABLES - DEVICE Final Result Performing Organization Address City/[facility]/ZIP Co de Phone Number [facility] ([place]) 1 [facility] [place] [place] [address] * eGFR (07/26/2025 6:33 AM CDT) eGFR >90 >=60 mL/min/1. 73 m2 Comment: Interpretive Data Reference Interval Normal >/= 90 mL/min/1.73m2 Mildly decreased* 60 - 89 mL/min/1.73m2 Mildly to moderately decreased 45 - 59 mL/min/1.73m2 Moderately to severely decreased 30 - 44 mL/min/1.73m2 Severely decreased 15 - 29 mL/min/1.73m2 Kidney Failure < 15 mL/min/1.73m2 *Relative to young adult level Estimated glomerular filtration rate is determined by the 2020 CKD-EPI equation recommended by the National Kidney Foundation (A Unifying Approach to GFR Estimation: Recommendations of the NKF-ASK Task Force on Reassessing the Inclusion of Race in Diagnosing Kidney Disease, JASN 2020). The CKD-EPI equation should not be used for patients with unstable renal function and has not been validated in children and those over 70. Current interpretive data was last reviewed 2021. Blood 07/26/2025 6:33 AM CDT 07/26/2025 6:36 AM CDT us Nova Michael MD LAB BLOOD ORDERABLES Yolanda abdul Result [facility] ([place]) 1 [facility] [place] [address] * (ABNORMAL) CBC without differential (07/26/2025 6:33 AM CDT) WBC 14.52(H) 3.80 - 9.90 K/cumm Hgb 10.4(L) 11.9 - 15.5 g/dL [facility] ([place]) Hct 34.3(L) 35.6 - 45.5 % [facility] ([place]) Plt 496(H) 150 - 400 K/cumm [facility] ([place]) MPV 9.2 9.1 - 12.3 fL [facility] ([place]) RBC 3.95 3.90 - 5.20 M/cumm [facility] ([place]) MCV 86.8 81.3 - 96.4 fL [facility] ([place]) MCH 26.3(L) 27.1 - 33.3 pg [facility] ([place]) MCHC 30.3(L) 32.3 - 35.7 g/dL [facility] ([place]) RDW CV 16.1(H) 11.1 - 14.9 % [facility] ([place]) RDW SD 50.3(H) 35.7 - 48.1 fL [facility] ([place]) NRBC abs 0.00 0.00 - 0.01 K/cumm [facility] ([place]) Blood 07/26/2025 6:33 AM CDT 07/26/2025 6:36 AM CDT us Nova Michael MD LAB BLOOD ORDERABLES Yolanda l Result [facility] ([place]) 1 [facility] [place] [address] * (ABNORMAL) Basic metabolic panel (07/26/2025 6:33 AM CDT) Sodium 138 135 - 145 mmol/L [facility] ([place]) Potassium, pl 5.6(H) 3.3 - 4.9 mmol/L [facility] ([place]) Chloride 100 97 - 110 mmol/L [facility] ([place]) CO2 29 22 - 32 mmol/L [facility] ([place]) Anion gap 9 2 - 15 mmol/L [facility] ([place]) BUN 25 6 - 25 mg/dL [facility] ([place]) Creatinine 0.53(L) 0.60 - 1.10 mg/dL [facility] ([place]) Glucose 189 70 - 199 mg/dL [facility] ([place]) Comment: Interpretive Data Fasting glucose >/= 126 mg/dl is diagnostic for diabetes. Fasting is defined as no caloric intake for at least 8 hours. Fasting glucose between 100 mg/dl to 125 mg/dl is diagnostic of prediabetes. In a patient with classic symptoms of hyperglycemia or hyperglycemic crisis, a random glucose >/= 200 mg/dl is diagnostic for diabetes. In the absence of unequivocal hyperglycemia, results should be confirmed by repeat testing. The classification and Diagnosis of Diabetes Diabetes Care 202; 46: S19-S40. Current interpretive data was last revised 2022. Calcium 9.4 8.5 - 10.3 mg/dL [facility] ([place]) Blood 07/26/2025 6:33 AM CDT 07/26/2025 6:36 AM CDT Nova Michael MD LAB BLOOD ORDERABLES Yolanda l Result [facility] ([place]) 1 [facility] [place] [address] * POCT glucose (07/26/2025 2:25 AM CDT) Glucose, POC 138 70 - 199 mg/dL Blood 07/26/2025 2:25 AM CDT 07/26/2025 2:25 AM CDT us Miranda Chambers MD LAB POCT ORDERABLES - DEVICE Final Result Performing Organization Address City/[facility]/ZIP Co de Phone Number [facility] ([place]) 1 [facility] [place] [address] * POCT glucose (07/25/2025 9:24 PM CDT) Glucose, POC 186 70 - 199 mg/dL Blood 07/25/2025 9:24 PM CDT 07/25/2025 9:24 PM CDT us Miranda Chambers MD LAB POCT ORDERABLES - DEVICE Final Result Performing Organization Address City/[facility]/ZIP Co de Phone Number [facility] ([place]) 1 [facility] [place] [address] * POCT glucose (07/25/2025 4:27 PM CDT) Glucose, POC 160 70 - 199 mg/dL Blood 07/25/2025 4:27 PM CDT 07/25/2025 4:27 PM CDT Miranda Chambers MD LAB POCT ORDERABLES - DEVICE Final Result [facility] ([place]) 1 [facility] [place] [address] * POCT glucose (07/25/2025 10:53 AM CDT) Glucose, POC 193 70 - 199 mg/dL Blood 07/25/2025 10:5 3 AM CDT 07/25/2025 10:53 AM CDT Miranda Chambers MD LAB POCT ORDERABLES - DEVICE Final Result [facility] [place]) 1 [facility] [place] [address] * POCT glucose (07/25/2025 7:34 AM CDT) Glucose, POC 189 70 - 199 mg/dL Blood 07/25/2025 7:34 AM CDT 07/25/2025 7:34 AM CDT Miranda Chambers MD LAB POCT ORDERABLES - DEVICE Final Result Performing Organization Address City/[facility] Co de Phone Number [facility] [place]) 1 [facility] [place] [address] * eGFR (07/25/2025 5:46 AM CDT) eGFR >90 >=60 mL/min/1. 73 m2 Comment: Interpretive Data Reference Interval Normal >/= 90 mL/min/1.73m2 Mildly decreased* 60 - 89 mL/min/1.73m2 Mildly to moderately decreased 45 - 59 mL/min/1.73m2 Moderately to severely decreased 30 - 44 mL/min/1.73m2 Severely decreased 15 - 29 mL/min/1.73m2 Kidney Failure < 15 mL/min/1.73m2 *Relative to young adult level Estimated glomerular filtration rate is determined by the 2020 CKD-EPI equation recommended by the National Kidney Foundation (A Unifying Approach to GFR Estimation: Recommendations of the NKF-ASK Task Force on Reassessing the Inclusion of Race in Diagnosing Kidney Disease, JASN 2020). The CKD-EPI equation should not be used for patients with unstable renal function and has not been validated in children and those over 70. Current interpretive data was last reviewed 2021. Blood 07/25/2025 5:46 AM CDT 07/25/2025 5:48 AM CDT us Nova Michael MD LAB BLOOD ORDERABLES Yolanda l Result [facility] ([place]) 1 [facility] [place] [employer] [place] [address] * (ABNORMAL) CBC without differential (07/25/2025 5:46 AM CDT) [facility] WBC 14.76(H) 3.80 - 9.90 K/cumm Hgb 10.1(L) 11.9 - 15.5 g/dL [facility] ([place]) Hct 33.0(L) 35.6 - 45.5 % [facility] ([place]) Plt 470(H) 150 - 400 K/cumm [facility] ([place]) MPV 9.0(L) 9.1 - 12.3 fL [facility] ([place]) RBC 3.78(L) 3.90 - 5.20 M/cumm [facility] ([place]) MCV 87.3 81.3 - 96.4 fL [facility] ([place]) MCH 26.7(L) 27.1 - 33.3 pg [facility] ([place]) MCHC 30.6(L) 32.3 - 35.7 g/dL [facility] ([place]) RDW CV 16.0(H) 11.1 - 14.9 % [facility] ([place]) RDW SD 50.3(H) 35.7 - 48.1 fL [facility] ([place]) NRBC abs 0.00 0.00 - 0.01 K/cumm [facility] ([place]) Blood 07/25/2025 5:46 AM CDT 07/25/2025 5:48 AM CDT us Nova Michael MD LAB BLOOD ORDERABLES Yolanda l Result [facility] ([place]) 1 [facility] [place] [address] * (ABNORMAL) Basic metabolic panel (07/25/2025 5:46 AM CDT) Sodium 138 135 - 145 mmol/L [facility] ([place]) Potassium, pl 4.4 3.3 - 4.9 mmol/L [facility] ([place]) Chloride 100 97 - 110 mmol/L [facility] ([place]) CO2 27 22 - 32 mmol/L [facility] ([place]) Anion gap 11 2 - 15 mmol/L [facility] ([place]) BUN 25 6 - 25 mg/dL [facility] ([place]) Creatinine 0.54(L) 0.60 - 1.10 mg/dL [facility] ([place]) Glucose 184 70 - 199 mg/dL [facility] ([place]) Comment: Interpretive Data Fasting glucose >/= 126 mg/dl is diagnostic for diabetes. Fasting is defined as no caloric intake for at least 8 hours. Fasting glucose between 100 mg/dl to 125 mg/dl is diagnostic of prediabetes. In a patient with classic symptoms of hyperglycemia or hyperglycemic crisis, a random glucose >/= 200 mg/dl is diagnostic for diabetes. In the absence of unequivocal hyperglycemia, results should be confirmed by repeat testing. The classification and Diagnosis of Diabetes Diabetes Care 2021; 46: S19-S40. Current interpretive data was last revised 2022. Calcium 9.3 8.5 - 10.3 mg/dL [facility] ([place]) Blood 07/25/2025 5:46 AM CDT 07/25/2025 5:48 AM CDT us Nova Michael MD LAB BLOOD ORDERABLES Yolanda l Result [facility] ([place]) 1 [facility] [place] [address] * POCT glucose (07/25/2025 2:39 AM CDT) Glucose, POC 152 70 - 199 mg/dL Blood 07/25/2025 2:39 AM CDT 07/25/2025 2:39 AM CDT Miranda Chambers MD LAB POCT ORDERABLES - DEVICE Final Result [facility] ([place]) 1 [facility] [place] [address] * POCT glucose (07/24/2025 8:21 PM CDT) Glucose, POC 162 70 - 199 mg/dL Blood 07/24/2025 8:21 PM CDT 07/24/2025 8:21 PM CDT Miranda Chambers MD LAB POCT ORDERABLES - DEVICE Final Result Performing Organization Address City/[facility]/ZIP Co de Phone Number [facility] ([place]) 1 [facility] [place] [address] * POCT glucose (07/24/2025 4:35 PM CDT) Glucose, POC 139 70 - 199 mg/dL Blood 07/24/2025 4:35 PM CDT 07/24/2025 4:35 PM CDT Miranda Chambers MD LAB POCT ORDERABLES - DEVICE Final Result Performing Organization Address City/[facility]/ZIP Co de Phone Number [facility] ([place]) 1 [facility] [place] [address] * (ABNORMAL) POCT glucose (07/24/2025 11:17 AM CDT) Glucose, POC 223(H) 70 - 199 mg/dL Blood 07/24/2025 11:1 7 AM CDT 07/24/2025 11:17 AM CDT us Miranda Chambers MD LAB POCT ORDERABLES - DEVICE Final Result [facility] ([place]) 1 [facility] [place] [address] * (ABNORMAL) POCT glucose (07/24/2025 7:58 AM CDT) Glucose, POC 213(H) 70 - 199 mg/dL Blood 07/24/2025 7:58 AM CDT 07/24/2025 7:58 AM CDT us Miranda Chambers MD LAB POCT ORDERABLES - DEVICE Final Result Performing Organization Address City/[facility]/ZIP Co de Phone Number [facility] ([place]) 1 [facility] [place] [place] [address] * eGFR (07/24/2025 4:53 AM CDT) Pathologist [facility] eGFR >90 >=60 mL/min/1. 73 m2 Comment: Interpretive Data Reference Interval Normal >/= 90 mL/min/1.73m2 Mildly decreased* 60 - 89 mL/min/1.73m2 Mildly to moderately decreased 45 - 59 mL/min/1.73m2 Moderately to severely decreased 30 - 44 mL/min/1.73m2 Severely decreased 15 - 29 mL/min/1.73m2 Kidney Failure < 15 mL/min/1.73m2 *Relative to young adult level Estimated glomerular filtration rate is determined by the 2020 CKD-EPI equation recommended by the National Kidney Foundation (A Unifying Approach to GFR Estimation: Recommendations of the NKF-ASK Task Force on Reassessing the Inclusion of Race in Diagnosing Kidney Disease, JASN 2020). The CKD-EPI equation should not be used for patients with unstable renal function and has not been validated in children and those over 70. Current interpretive data was last reviewed 2021. Blood 07/24/2025 4:53 AM CDT 07/24/2025 4:59 AM CDT us Nova Michael MD LAB BLOOD ORDERABLES Yolanda l Result Performing Organization Address City/[facility]/ZIP Co de Phone Number [facility] ([place]) 1 [facility] [place] [place] [address] * (ABNORMAL) CBC without differential (07/24/2025 4:53 AM CDT) WBC 14.46(H) 3.80 - 9.90 K/cumm Hgb 10.0(L) 11.9 - 15.5 g/dL [facility] ([place]) Hct 32.8(L) 35.6 - 45.5 % [facility] ([place]) Plt 494(H) 150 - 400 K/cumm [facility] ([place]) MPV 8.9(L) 9.1 - 12.3 fL [facility] ([place]) RBC 3.75(L) 3.90 - 5.20 M/cumm [facility] ([place]) MCV 87.5 81.3 - 96.4 fL [facility] ([place]) MCH 26.7(L) 27.1 - 33.3 pg [facility] ([place]) MCHC 30.5(L) 32.3 - 35.7 g/dL [facility] ([place]) RDW CV 15.9(H) 11.1 - 14.9 % [facility] ([place]) RDW SD 50.4(H) 35.7 - 48.1 fL [facility] ([place]) NRBC abs 0.00 0.00 - 0.01 K/cumm [facility] ([place]) Blood 07/24/2025 4:53 AM CDT 07/24/2025 4:59 AM CDT us Nova Michael MD LAB BLOOD ORDERABLES Yolanda l Result [facility] ([place]) 1 [facility] [place] [address] * (ABNORMAL) Basic metabolic panel (07/24/2025 4:53 AM CDT) Pathologist [facility] Sodium 140 135 - 145 mmol/L [facility] ([place]) Potassium, pl 4.1 3.3 - 4.9 mmol/L [facility] ([place]) Chloride 100 97 - 110 mmol/L [facility] ([place]) CO2 29 22 - 32 mmol/L [facility] ([place] Anion gap 11 2 - 15 mmol/L [facility] ([place]) BUN 18 6 - 25 mg/dL [facility] ([place]) Creatinine 0.52(L) 0.60 - 1.10 mg/dL [facility] ([place]) Glucose 164 70 - 199 mg/dL [facility] ([place]) Comment: Interpretive Data Fasting glucose >/= 126 mg/dl is diagnostic for diabetes. Fasting is defined as no caloric intake for at least 8 hours. Fasting glucose between 100 mg/dl to 125 mg/dl is diagnostic of prediabetes. In a patient with classic symptoms of hyperglycemia or hyperglycemic crisis, a random glucose >/= 200 mg/dl is diagnostic for diabetes. In the absence of unequivocal hyperglycemia, results should be confirmed by repeat testing. The classification and Diagnosis of Diabetes Diabetes Care 2021; 46: S19-S40. Current interpretive data was last revised 2022. Calcium 9.4 8.5 - 10.3 mg/dL [facility] ([place]) Blood 07/24/2025 4:53 AM CDT 07/24/2025 4:59 AM CDT Nova Michael MD LAB BLOOD ORDERABLES Yolanda l Result [facility] ([place]) 1 [facility] [place] [place] [address] * POCT glucose (07/24/2025 2:34 AM CDT) [facility] Signature Glucose, POC 145 70 - 199 mg/dL Blood 07/24/2025 2:34 AM CDT 07/24/2025 2:34 AM CDT Nova Michael MD LAB POCT ORDERABLES - DEV ICE Final Result [facility] ([place]) 1 [facility] [place] [employer] [place] [address] * POCT glucose (07/23/2025 8:40 PM CDT) Glucose, POC 134 70 - 199 mg/dL Blood 07/23/2025 8:40 PM CDT 07/23/2025 8:40 PM CDT Nova Michael MD LAB POCT ORDERABLES - DEV ICE Final Result Performing Organization Address City/[facility]/ZIP Co de Phone Number [id number] ([place]) [address] [place] [place] [address] * POCT glucose (07/23/2025 5:08 PM CDT) Glucose, POC 123 70 - 199 mg/dL Blood 07/23/2025 5:08 PM CDT 07/23/2025 5:08 PM CDT Nova Michael MD LAB POCT ORDERABLES - DEV ICE Final Result Performing Organization Address City/[facility] Co de Phone Number VIKKI MERCADO ([place]) 1 [facility] [place] [address] * (ABNORMAL) POCT glucose (07/23/2025 11:36 AM CDT) Glucose, POC 239(H) 70 - 199 mg/dL Blood 07/23/2025 11:3 6 AM CDT 07/23/2025 11:36 AM CDT Nova Michael MD LAB POCT ORDERABLES - DEV ICE Final Result VIKKI MERCADO ([place]) 1 [facility] [place] [address] * (ABNORMAL) POCT glucose (07/23/2025 7:35 AM CDT) Glucose, POC 229(H) 70 - 199 mg/dL Blood 07/23/2025 7:35 AM CDT 07/23/2025 7:35 AM CDT Nova Michael MD LAB POCT ORDERABLES - DEV ICE Final Result Performing Organization Address City/[facility]/ZIP Co de Phone Number VIKKI MERCADO ([place]) 1 [facility] [place] [place] [address] * eGFR (07/23/2025 5:10 AM CDT) eGFR >90 >=60 mL/min/1. 73 m2 Comment: Interpretive Data Reference Interval Normal >/= 90 mL/min/1.73m2 Mildly decreased* 60 - 89 mL/min/1.73m2 Mildly to moderately decreased 45 - 59 mL/min/1.73m2 Moderately to severely decreased 30 - 44 mL/min/1.73m2 Severely decreased 15 - 29 mL/min/1.73m2 Kidney Failure < 15 mL/min/1.73m2 *Relative to young adult level Estimated glomerular filtration rate is determined by the 2020 CKD-EPI equation recommended by the National Kidney Foundation (A Unifying Approach to GFR Estimation: Recommendations of the NKF-ASK Task Force on Reassessing the Inclusion of Race in Diagnosing Kidney Disease, JASN 2020). The CKD-EPI equation should not be used for patients with unstable renal function and has not been validated in children and those over 70. Current interpretive data was last reviewed 2021. Blood 07/23/2025 5:10 AM CDT 07/23/2025 5:13 AM CDT us Nova Michael MD LAB BLOOD ORDERABLES Yolanda l Result VIKKI MERCADO ([place]) 1 [facility] [place] [employer] [place] [address] * (ABNORMAL) CBC without differential (07/23/2025 5:10 AM CDT) WBC 14.55(H) 3.80 - 9.90 K/cumm Hgb 9.6(L) 11.9 - 15.5 g/dL [facility] ([place]) Hct 31.7(L) 35.6 - 45.5 % [facility] ([place]) Plt 458(H) 150 - 400 K/cumm [facility] ([place]) MPV 8.8(L) 9.1 - 12.3 fL [facility] ([place]) RBC 3.65(L) 3.90 - 5.20 M/cumm [facility] ([place]) MCV 86.8 81.3 - 96.4 fL [facility] ([place]) MCH 26.3(L) 27.1 - 33.3 pg [facility] ([place]) MCHC 30.3(L) 32.3 - 35.7 g/dL [facility] ([place]) RDW CV 15.8(H) 11.1 - 14.9 % [facility] ([place]) RDW SD 49.7(H) 35.7 - 48.1 fL [facility] ([place]) NRBC abs 0.00 0.00 - 0.01 K/cumm [facility] ([place]) Blood 07/23/2025 5:10 AM CDT 07/23/2025 5:13 AM CDT us Nova Michael MD LAB BLOOD ORDERABLES Yolanda abdul Result [facility] ([place]) 1 [facility] [place] [address] * (ABNORMAL) Basic metabolic panel (07/23/2025 5:10 AM CDT) Sodium 135 135 - 145 mmol/L [facility] ([place]) Potassium, pl 4.5 3.3 - 4.9 mmol/L [facility] ([place]) Chloride 95(L) 97 - 110 mmol/L [facility] ([place]) CO2 29 22 - 32 mmol/L [facility] ([place]) Anion gap 11 2 - 15 mmol/L [facility] ([place]) BUN 18 6 - 25 mg/dL [facility] ([place]) Creatinine 0.50(L) 0.60 - 1.10 mg/dL [facility] ([place]) Glucose 199 70 - 199 mg/dL VIKKI [facility] ([place]) Comment: Interpretive Data Fasting glucose >/= 126 mg/dl is diagnostic for diabetes. Fasting is defined as no caloric intake for at least 8 hours. Fasting glucose between 100 mg/dl to 125 mg/dl is diagnostic of prediabetes. In a patient with classic symptoms of hyperglycemia or hyperglycemic crisis, a random glucose >/= 200 mg/dl is diagnostic for diabetes. In the absence of unequivocal hyperglycemia, results should be confirmed by repeat testing. The classification and Diagnosis of Diabetes Diabetes Care 2021; 46: S19-S40. Current interpretive data was last revised 2022. Calcium 9.5 8.5 - 10.3 mg/dL VIKKI [facility] ([place]) Blood 07/23/2025 5:10 AM CDT 07/23/2025 5:13 AM CDT Nova Michael MD LAB BLOOD ORDERABLES Yolanda l Result Performing Organization Address City/[facility]/ZIP Co de Phone Number VIKKI [facility] ([place]) 1 [facility] [place] [place] [address] * POCT glucose (07/23/2025 2:37 AM CDT) Glucose, POC 193 70 - 199 mg/dL Blood 07/23/2025 2:37 AM CDT 07/23/2025 2:37 AM CDT Nova Michael MD LAB POCT ORDERABLES - DEV ICE Final Result [facility] ([place]) 1 [facility] [place] [address] * POCT glucose (07/22/2025 7:54 PM CDT) Glucose, POC 196 70 - 199 mg/dL Blood 07/22/2025 7:54 PM CDT 07/22/2025 7:54 PM CDT us Nova Michael MD LAB POCT ORDERABLES - DEV ICE Final Result Performing Organization Address [facility] Co de Phone Number VIKKI MERCADO ([place]) 1 [facility] [place] [address] * POCT glucose (07/22/2025 4:48 PM CDT) Glucose, POC 161 70 - 199 mg/dL Blood 07/22/2025 4:48 PM CDT 07/22/2025 4:48 PM CDT us Nova Michael MD LAB POCT ORDERABLES - DEV ICE Final Result Performing Organization Address [facility] de Phone Number VIKKI MERCADO ([place]) 1 [facility] [place] [place] [address] * (ABNORMAL) POCT glucose (07/22/2025 11:39 AM CDT) Glucose, POC 212(H) 70 - 199 mg/dL Blood 07/22/2025 11:3 9 AM CDT 07/22/2025 11:39 AM CDT us Nova Michael MD LAB POCT ORDERABLES - DEV ICE Final Result Performing Organization Address [facility] de Phone Number VIKKI MERCADO ([place]) 1 [facility] [place] [place] [address] * (ABNORMAL) POCT glucose (07/22/2025 7:41 AM CDT) Glucose, POC 201(H) 70 - 199 mg/dL Blood 07/22/2025 7:41 AM CDT 07/22/2025 7:41 AM CDT us Nova Michael MD LAB POCT ORDERABLES - DEV ICE Final Result Performing Organization Address [facility]/State/ZIP Co de Phone Number VIKKI MERCADO ([place]) 1 [facility] [place] [address] * eGFR (07/22/2025 5:22 AM CDT) eGFR >90 >=60 mL/min/1. 73 m2 Comment: Interpretive Data Reference Interval Normal >/= 90 mL/min/1.73m2 Mildly decreased* 60 - 89 mL/min/1.73m2 Mildly to moderately decreased 45 - 59 mL/min/1.73m2 Moderately to severely decreased 30 - 44 mL/min/1.73m2 Severely decreased 15 - 29 mL/min/1.73m2 Kidney Failure < 15 mL/min/1.73m2 *Relative to young adult level Estimated glomerular filtration rate is determined by the 2020 CKD-EPI equation recommended by the National Kidney Foundation (A Unifying Approach to GFR Estimation: Recommendations of the NKF-ASK Task Force on Reassessing the Inclusion of Race in Diagnosing Kidney Disease, JASN 2020). The CKD-EPI equation should not be used for patients with unstable renal function and has not been validated in children and those over 70. Current interpretive data was last reviewed 2021. Blood 07/22/2025 5:22 AM CDT 07/22/2025 5:29 AM CDT us Nova Michael MD LAB BLOOD ORDERABLES Yolanda abdul Result VIKKI MONTENEGRON) 1 [facility] [place] [address] * (ABNORMAL) CBC without differential (07/22/2025 5:22 AM CDT) WBC 13.69(H) 3.80 - 9.90 K/cumm Hgb 9.6(L) 11.9 - 15.5 g/dL [facility] ([place]) Hct 31.6(L) 35.6 - 45.5 % [facility] ([place]) Plt 476(H) 150 - 400 K/cumm [facility] ([place]) MPV 9.0(L) 9.1 - 12.3 fL [facility] ([place]) RBC 3.61(L) 3.90 - 5.20 M/cumm [facility] ([place]) MCV 87.5 81.3 - 96.4 fL [facility] ([place]) MCH 26.6(L) 27.1 - 33.3 pg [facility] ([place]) MCHC 30.4(L) 32.3 - 35.7 g/dL [facility] ([place]) RDW CV 15.9(H) 11.1 - 14.9 % [facility] ([place]) RDW SD 50.1(H) 35.7 - 48.1 fL [facility] ([place]) NRBC abs 0.00 0.00 - 0.01 K/cumm [facility] ([place]) Blood 07/22/2025 5:22 AM CDT 07/22/2025 5:29 AM CDT Nova Michael MD LAB BLOOD ORDERABLES Yolanda l Result [facility] ([place]) 1 [facility] Department of Laboratories [place], [place] [id number] * (ABNORMAL) Basic metabolic panel (07/22/2025 5:22 AM CDT) Sodium 141 135 - 145 mmol/L [facility] ([place]) Potassium, pl 4.1 3.3 - 4.9 mmol/L [facility] ([place]) Chloride 99 97 - 110 mmol/L [facility] ([place]) CO2 30 22 - 32 mmol/L [facility] ([place]) Anion gap 12 2 - 15 mmol/L [facility] ([place]) BUN 11 6 - 25 mg/dL [facility] ([place]) Creatinine 0.47(L) 0.60 - 1.10 mg/dL [facility] ([place]) Glucose 199 70 - 199 mg/dL [facility] ([place]) Comment: Interpretive Data Fasting glucose >/= 126 mg/dl is diagnostic for diabetes. Fasting is defined as no caloric intake for at least 8 hours. Fasting glucose between 100 mg/dl to 125 mg/dl is diagnostic of prediabetes. In a patient with classic symptoms of hyperglycemia or hyperglycemic crisis, a random glucose >/= 200 mg/dl is diagnostic for diabetes. In the absence of unequivocal hyperglycemia, results should be confirmed by repeat testing. The classification and Diagnosis of Diabetes Diabetes Care 2021; 46: S19-S40. Current interpretive data was last revised 2022. Calcium 9.7 8.5 - 10.3 mg/dL TITUS[facility] ROGEL[facility] ([place]) Blood 07/22/2025 5:22 AM CDT 07/22/2025 5:29 AM CDT Nova Michael MD LAB BLOOD ORDERABLES Yolanda l Result Performing Organization Address City/[facility]/ZIP Co de Phone Number VIKKI MERCADO ([place]) 1 [facility] [place] [address] * POCT glucose (07/22/2025 3:07 AM CDT) Glucose, POC 174 70 - 199 mg/dL Blood 07/22/2025 3:07 AM CDT 07/22/2025 3:07 AM CDT Nova Michael MD LAB POCT ORDERABLES - DEV ICE Final Result Performing Organization Address [facility] Co de Phone Number VIKKI MERCADO ([place]) 1 [facility] [place] [address] * (ABNORMAL) POCT glucose (07/21/2025 7:43 PM CDT) Glucose, POC 281(H) 70 - 199 mg/dL Blood 07/21/2025 7:43 PM CDT 07/21/2025 7:43 PM CDT Nova Michael MD LAB POCT ORDERABLES - DEV ICE Final Result Performing Organization Address City/[facility] Co de Phone Number VIKKI MERCADO ([place]) 1 [facility] [place] [address] * POCT glucose (07/21/2025 4:21 PM CDT) Glucose, POC 180 70 - 199 mg/dL Blood 07/21/2025 4:21 PM CDT 07/21/2025 4:21 PM CDT Nova Michael MD LAB POCT ORDERABLES - DEV ICE Final Result VIKKI MERCADO ([place]) 1 [place] [address] * (ABNORMAL) POCT glucose (07/21/2025 11:27 AM CDT) [facility] Signature Glucose, POC 253(H) 70 - 199 mg/dL Blood 07/21/2025 11:2 7 AM CDT 07/21/2025 11:27 AM CDT us Nova Michael MD LAB POCT ORDERABLES - DEV ICE Final Result VIKKI MERCADO ([place]) 1 [facility] [place] [address] * POCT glucose (07/21/2025 7:53 AM CDT) [facility] Glucose, POC 192 70 - 199 mg/dL Blood 07/21/2025 7:53 AM CDT 07/21/2025 7:53 AM CDT Nova Michael MD LAB POCT ORDERABLES - DEV ICE Final Result VIKKI MERCADO ([place]) 1 [place] [address] * eGFR (07/21/2025 5:45 AM CDT) eGFR >90 >=60 mL/min/1. 73 m2 Comment: Interpretive Data Reference Interval Normal >/= 90 mL/min/1.73m2 Mildly decreased* 60 - 89 mL/min/1.73m2 Mildly to moderately decreased 45 - 59 mL/min/1.73m2 Moderately to severely decreased 30 - 44 mL/min/1.73m2 Severely decreased 15 - 29 mL/min/1.73m2 Kidney Failure < 15 mL/min/1.73m2 *Relative to young adult level Estimated glomerular filtration rate is determined by the 2020 CKD-EPI equation recommended by the National Kidney Foundation (A Unifying Approach to GFR Estimation: Recommendations of the NKF-ASK Task Force on Reassessing the Inclusion of Race in Diagnosing Kidney Disease, JASN 2020). The CKD-EPI equation should not be used for patients with unstable renal function and has not been validated in children and those over 70. Current interpretive data was last reviewed 2021. Blood 07/21/2025 5:45 AM CDT 07/21/2025 5:48 AM CDT us Nova Michael MD LAB BLOOD ORDERABLES Yolanda abdul Result VIKKI [facility] ([place]) 1 [facility] [place] [address] * (ABNORMAL) CBC without differential (07/21/2025 5:45 AM CDT) WBC 13.95(H) 3.80 - 9.90 K/cumm Hgb 9.2(L) 11.9 - 15.5 g/dL [facility] ([place]) Hct 30.4(L) 35.6 - 45.5 % [facility] ([place]) Plt 460(H) 150 - 400 K/cumm [facility] ([place]) MPV 9.0(L) 9.1 - 12.3 fL [facility] ([place]) RBC 3.50(L) 3.90 - 5.20 M/cumm [facility] ([place]) MCV 86.9 81.3 - 96.4 fL [facility] ([place]) MCH 26.3(L) 27.1 - 33.3 pg [facility] ([place]) MCHC 30.3(L) 32.3 - 35.7 g/dL [facility] ([place]) RDW CV 15.9(H) 11.1 - 14.9 % [facility] ([place]) RDW SD 49.6(H) 35.7 - 48.1 fL [facility] ([place]) NRBC abs 0.00 0.00 - 0.01 K/cumm [facility] ([place]) Blood 07/21/2025 5:45 AM CDT 07/21/2025 5:48 AM CDT us Nova Michael MD LAB BLOOD ORDERABLES Yolanda abdul Result [facility] ([place]) 1 [facility] [place] [address] * (ABNORMAL) Basic metabolic panel (07/21/2025 5:45 AM CDT) Sodium 142 135 - 145 mmol/L [facility] ([place]) Potassium, pl 3.9 3.3 - 4.9 mmol/L [facility] ([place]) Chloride 102 97 - 110 mmol/L [facility] ([place]) CO2 28 22 - 32 mmol/L [facility] ([place]) Anion gap 12 2 - 15 mmol/L [facility] ([place]) BUN 13 6 - 25 mg/dL [facility] ([place]) Creatinine 0.52(L) 0.60 - 1.10 mg/dL [facility] ([place]) Glucose 213(H) 70 - 199 mg/dL [facility] ([place]) Comment: Interpretive Data Fasting glucose >/= 126 mg/dl is diagnostic for diabetes. Fasting is defined as no caloric intake for at least 8 hours. Fasting glucose between 100 mg/dl to 125 mg/dl is diagnostic of prediabetes. In a patient with classic symptoms of hyperglycemia or hyperglycemic crisis, a random glucose >/= 200 mg/dl is diagnostic for diabetes. In the absence of unequivocal hyperglycemia, results should be confirmed by repeat testing. The classification and Diagnosis of Diabetes Diabetes Care 2021; 46: S19-S40. Current interpretive data was last revised 2022. Calcium 9.4 8.5 - 10.3 mg/dL VIKKI MERCADO ([place]) Blood 07/21/2025 5:45 AM CDT 07/21/2025 5:48 AM CDT Nova Michael MD LAB BLOOD ORDERABLES Yolanda l Result VIKKI MERCADO ([place]) 1 [facility] [place] [address] * POCT glucose (07/21/2025 2:27 AM CDT) Glucose, POC 97 70 - 199 mg/dL Blood 07/21/2025 2:27 AM CDT 07/21/2025 2:27 AM CDT Nova Michael MD LAB POCT ORDERABLES - DEV ICE Final Result Performing Organization Address [facility] Co de Phone Number VIKKI MERCADO ([place]) 1 [facility] [place] [address] * POCT glucose (07/20/2025 9:29 PM CDT) Glucose, POC 111 70 - 199 mg/dL Blood 07/20/2025 9:29 PM CDT 07/20/2025 9:29 PM CDT Nova Michael MD LAB POCT ORDERABLES - DEV ICE Final Result Performing Organization Address City/[facility] Co de Phone Number VIKKI MERCADO ([place]) 1 [facility] [place] [address] * POCT glucose (07/20/2025 7:19 PM CDT) Glucose, POC 85 70 - 199 mg/dL Blood 07/20/2025 7:19 PM CDT 07/20/2025 7:19 PM CDT Nova Michael MD LAB POCT ORDERABLES - DEV ICE Final Result VIKKI [place]gsJ[place]) 1 [facility] [place] [address] * POCT glucose (07/20/2025 4:38 PM CDT) Glucose, POC 122 70 - 199 mg/dL Blood 07/20/2025 4:38 PM CDT 07/20/2025 4:38 PM CDT Nova Michael MD LAB POCT ORDERABLES - DEV ICE Final Result Performing Organization Address City/[facility] Co de Phone Number VIKKI [place]) 1 [facility] [place] [address] * eGFR (07/20/2025 3:03 PM CDT) eGFR >90 >=60 mL/min/1. 73 m2 Comment: Interpretive Data Reference Interval Normal >/= 90 mL/min/1.73m2 Mildly decreased* 60 - 89 mL/min/1.73m2 Mildly to moderately decreased 45 - 59 mL/min/1.73m2 Moderately to severely decreased 30 - 44 mL/min/1.73m2 Severely decreased 15 - 29 mL/min/1.73m2 Kidney Failure < 15 mL/min/1.73m2 *Relative to young adult level Estimated glomerular filtration rate is determined by the 2020 CKD-EPI equation recommended by the National Kidney Foundation (A Unifying Approach to GFR Estimation: Recommendations of the NKF-ASK Task Force on Reassessing the Inclusion of Race in Diagnosing Kidney Disease, JASN 2020). The CKD-EPI equation should not be used for patients with unstable renal function and has not been validated in children and those over 70. Current interpretive data was last reviewed 2021. Blood 07/20/2025 3:03 PM CDT 07/20/2025 3:07 PM CDT Nova Michael MD LAB BLOOD ORDERABLES Yolanda l Result VIKKI MERCADO ([place]) 1 [facility] [place] [address] * Protime-INR (07/20/2025 3:03 PM CDT) PT 11.6 10.2 - 13.5 sec VIKKI [facility] ([place]) INR 1.03 0.90 - 1.20 VIKKI [facility] ([place]) Comment: Interpretive data Oral anticoagulant therapeutic ranges: Venous thromboembolism prophylaxis or treatment: 2.0-3.0 CARDIOLOGY Standard range: 2.0-3.0 High-intensity range: 2.5-3.5 Refer to indication-specific guidelines for appropriate target ranges for prosthetic heart valve replacement. Current interpretive data was last revised on 2019. Blood 07/20/2025 3:03 PM CDT 07/20/2025 3:07 PM CDT Narrative [facility] ([place]) - 07/20/2025 3:39 PM CDT Baseline prior to apixaban initiation. us Nova Michael MD LAB BLOOD ORDERABLES Yolanda l Result Performing Organization Address City/[facility]/ZIP Co de Phone Number VIKKI MERCADO ([place]) 1 [facility] [place] [address] * (ABNORMAL) CBC without differential (07/20/2025 3:03 PM CDT) WBC 14.10(H) 3.80 - 9.90 K/cumm Hgb 9.4(L) 11.9 - 15.5 g/dL VIKKI [facility] ([place]) Hct 30.5(L) 35.6 - 45.5 % [facility] ([place]) Plt 517(H) 150 - 400 K/cumm [facility] ([place]) MPV 9.1 9.1 - 12.3 fL [facility] ([place]) RBC 3.50(L) 3.90 - 5.20 M/cumm [facility] ([place]) MCV 87.1 81.3 - 96.4 fL [facility] ([place]) MCH 26.9(L) 27.1 - 33.3 pg [facility] ([place]) MCHC 30.8(L) 32.3 - 35.7 g/dL [facility] ([place]) RDW CV 15.8(H) 11.1 - 14.9 % [facility] ([place]) RDW SD 49.5(H) 35.7 - 48.1 fL [facility] ([place]) NRBC abs 0.00 0.00 - 0.01 K/cumm [facility] ([place]) Blood 07/20/2025 3:03 PM CDT 07/20/2025 3:07 PM CDT Narrative [facility] ([place]) - 07/20/2025 3:09 PM CDT Baseline prior to apixaban initiation. Nova Michael MD LAB BLOOD ORDERABLES Yolanda l Result Performing Organization Address City/[facility]/ZIP Co de Phone Number VIKKI MERCADO ([place]) 1 [facility] [place] [place] [address] * (ABNORMAL) Creatinine (07/20/2025 3:03 PM CDT) Creatinine 0.48(L) 0.60 - 1.10 mg/dL [facility] ([place]) Blood 07/20/2025 3:03 PM CDT 07/20/2025 3:07 PM CDT Narrative [facility] ([place]) - 07/20/2025 3:27 PM CDT Baseline prior to apixaban initiation. Nova Michael MD LAB BLOOD ORDERABLES Yolanda l Result VIKKI MERCADO ([place]) 1 [facility] [place] [employer] [place] [address] * (ABNORMAL) Hepatic function panel (07/20/2025 3:03 PM CDT) Bilirubin, total 0.2 0.1 - 1.2 mg/dL [facility] ([place]) Bilirubin, direct 0.1 0.1 - 0.3 mg/dL [facility] ([place]) Protein, pl 6.6 6.5 - 8.5 g/dL [facility] ([place]) Albumin 3.2(L) 3.5 - 5.0 g/dL [facility] ([place]) Alk phos 101 40 - 130 Units/L [facility] ([place]) ALT 43 7 - 45 Units/L [facility] ([place]) AST 21 10 - 45 Units/L [facility] ([place]) Blood 07/20/2025 3:03 PM CDT 07/20/2025 3:07 PM CDT Narrative [facility] ([place]) - 07/20/2025 3:27 PM CDT Baseline prior to apixaban initiation. Nova Michael MD LAB BLOOD ORDERABLES Yolanda l Result [facility] ([place]) 1 [facility] [place] [place] [address] * POCT glucose (07/20/2025 11:33 AM CDT) Glucose, POC 172 70 - 199 mg/dL Blood 07/20/2025 11:3 3 AM CDT 07/20/2025 11:33 AM CDT Nova Michael MD LAB POCT ORDERABLES - DEV ICE Final Result VIKKI [facility] ([place]) 1 [facility] [place] [place] [address] * Vancomycin level trough (07/20/2025 10:14 AM CDT) Vancomycin trough 10.0 10.0 - 20.0 mcg/mL VIKKI MERCADO ([place]) Blood 07/20/2025 10:1 4 AM CDT 07/20/2025 10:19 AM CDT Narrative VIKKI CASTELLON) - 07/20/2025 10:47 AM CDT Line bag and called to [facility]. 07/20/2025 08:52:38 CDT [id number] Nova Michael MD LAB BLOOD ORDERABLES Yolanda l Result VIKKI MERCADO ([place]) 1 [facility] [place] [address] * POCT glucose (07/20/2025 7:46 AM CDT) Glucose, POC 181 70 - 199 mg/dL Blood 07/20/2025 7:46 AM CDT 07/20/2025 7:46 AM CDT us Nova Michael MD LAB POCT ORDERABLES - DEV ICE Final Result Performing Organization Address City/[facility]/ZIP Co de Phone Number VIKKI MERCADO ([place]) 1 [facility] [place] [place] [address] * eGFR (07/20/2025 6:05 AM CDT) eGFR >90 >=60 mL/min/1. 73 m2 Comment: Interpretive Data Reference Interval Normal >/= 90 mL/min/1.73m2 Mildly decreased* 60 - 89 mL/min/1.73m2 Mildly to moderately decreased 45 - 59 mL/min/1.73m2 Moderately to severely decreased 30 - 44 mL/min/1.73m2 Severely decreased 15 - 29 mL/min/1.73m2 Kidney Failure < 15 mL/min/1.73m2 *Relative to young adult level Estimated glomerular filtration rate is determined by the 2020 CKD-EPI equation recommended by the National Kidney Foundation (A Unifying Approach to GFR Estimation: Recommendations of the NKF-ASK Task Force on Reassessing the Inclusion of Race in Diagnosing Kidney Disease, JASN 2020). The CKD-EPI equation should not be used for patients with unstable renal function and has not been validated in children and those over 70. Current interpretive data was last reviewed 2021. Blood 07/20/2025 6:05 AM CDT 07/20/2025 6:28 AM CDT Nova Michael MD LAB BLOOD ORDERABLES Yolanda l Result VIKKI MERCADO ([place]) 1 [facility] [place] [address] * (ABNORMAL) Creatinine (07/20/2025 6:05 AM CDT) Creatinine 0.45(L) 0.60 - 1.10 mg/dL [facility] ([place]) Blood 07/20/2025 6:05 AM CDT 07/20/2025 6:28 AM CDT Nova Michael MD LAB BLOOD ORDERABLES Yolanda l Result Performing Organization Address City/[facility] Co de Phone Number VIKKI MERCADO ([place]) [address] [place] [address] [place] [address] * POCT glucose (07/20/2025 1:37 AM CDT) Glucose, POC 182 70 - 199 mg/dL Blood 07/20/2025 1:37 AM CDT 07/20/2025 1:37 AM CDT Nova Michael MD LAB POCT ORDERABLES - DEV ICE Final Result Performing Organization Address City/[facility] Co de Phone Number VIKKI MERCADO ([place]) 1 [facility] [place] [place] [address] * POCT glucose (07/19/2025 8:54 PM CDT) Glucose, POC 125 70 - 199 mg/dL Blood 07/19/2025 8:54 PM CDT 07/19/2025 8:54 PM CDT Nova Michael MD LAB POCT ORDERABLES - DEV ICE Final Result Performing Organization Address City/[facility] Co de Phone Number VIKKI MERCADO ([place]) 1 [facility] [place] [place] [address] * POCT glucose (07/19/2025 4:43 PM CDT) Glucose, POC 186 70 - 199 mg/dL Blood 07/19/2025 4:43 PM CDT 07/19/2025 4:43 PM CDT Nova Michael MD LAB POCT ORDERABLES - DEV ICE Final Result Performing Organization Address [facility] de Phone Number VIKKI MERCADO ([place]) 1 [facility] [place] [place] [address] * (ABNORMAL) POCT glucose (07/19/2025 11:39 AM CDT) Glucose, POC 274(H) 70 - 199 mg/dL Blood 07/19/2025 11:3 9 AM CDT 07/19/2025 11:39 AM CDT Nova Michael MD LAB POCT ORDERABLES - DEV ICE Final Result Performing Organization Address City/[facility] Co de Phone Number VIKKI MERCADO ([place]) 1 [facility] [place] [place] [address] * POCT glucose (07/19/2025 7:56 AM CDT) Glucose, POC 193 70 - 199 mg/dL Blood 07/19/2025 7:56 AM CDT 07/19/2025 7:56 AM CDT us Nova Michael MD LAB POCT ORDERABLES - DEV ICE Final Result Performing Organization Address City/[facility]/ZIP Co de Phone Number VIKKI MERCADO ([place]) 1 [facility] [place] [place] [address] * eGFR (07/19/2025 5:15 AM CDT) eGFR >90 >=60 mL/min/1. 73 m2 Comment: Interpretive Data Reference Interval Normal >/= 90 mL/min/1.73m2 Mildly decreased* 60 - 89 mL/min/1.73m2 Mildly to moderately decreased 45 - 59 mL/min/1.73m2 Moderately to severely decreased 30 - 44 mL/min/1.73m2 Severely decreased 15 - 29 mL/min/1.73m2 Kidney Failure < 15 mL/min/1.73m2 *Relative to young adult level Estimated glomerular filtration rate is determined by the 2020 CKD-EPI equation recommended by the National Kidney Foundation (A Unifying Approach to GFR Estimation: Recommendations of the NKF-ASK Task Force on Reassessing the Inclusion of Race in Diagnosing Kidney Disease, JASN 2020). The CKD-EPI equation should not be used for patients with unstable renal function and has not been validated in children and those over 70. Current interpretive data was last reviewed 2021. Blood 07/19/2025 5:15 AM CDT 07/19/2025 6:16 AM CDT us Trip Ley MD LAB BLOOD ORDERABLES Fi nal Result Performing Organization Address City/[facility]/ZIP Co de Phone Number VIKKI MERCADO ([place]) 1 [facility] [place] [employer] [place] [address] * (ABNORMAL) Differential, auto (07/19/2025 5:15 AM CDT) Neutrophil abs 9.27(H) 1.50 - 6.50 K/cumm Imm gran abs 0.11(H) 0.00 - 0.10 K/cumm VIKKI MERCADO ([place]) Lymphocyte abs 3.93(H) 0.80 - 3.30 K/cumm [facility] ([place]) Monocyte abs 1.09(H) 0.20 - 0.80 K/cumm [facility] ([place]) Eosinophil abs 0.39 0.00 - 0.50 K/cumm [facility] ([place]) Basophil abs 0.06 0.00 - 0.10 K/cumm [facility] ([place]) Neutrophil pct 62.5 % [facility] ([place]) Comment: Interpretive Data Percent cell count reference ranges are not reported, since discordance with absolute values may lead to misinterpretation of CBC data. Current Interpretive Data was last revised on 2018. Imm gran pct 0.7 % [facility] ([place]) Comment: Interpretive Data Percent cell count reference ranges are not reported, since discordance with absolute values may lead to misinterpretation of CBC data. Current Interpretive Data was last revised on 2018. Lymphocyte pct 26.5 % [facility] ([place]) Comment: Interpretive Data Percent cell count reference ranges are not reported, since discordance with absolute values may lead to misinterpretation of CBC data. Current Interpretive Data was last revised on 2018. Monocyte pct 7.3 % [facility] ([place]) Comment: Interpretive Data Percent cell count reference ranges are not reported, since discordance with absolute values may lead to misinterpretation of CBC data. Current Interpretive Data was last revised on 2018. Eosinophil pct 2.6 % [facility] ([place]) Comment: Interpretive Data Percent cell count reference ranges are not reported, since discordance with absolute values may lead to misinterpretation of CBC data. Current Interpretive Data was last revised on 2018. Basophil pct 0.4 % [facility] ([place]) Comment: Interpretive Data Percent cell count reference ranges are not reported, since discordance with absolute values may lead to misinterpretation of CBC data. Current Interpretive Data was last revised on 2018. Blood 07/19/2025 5:15 AM CDT 07/19/2025 6:16 AM CDT us Trip Ley MD LAB BLOOD ORDERABLES Fi nal Result [facility] ([place]) 1 [facility] [place] [address] * (ABNORMAL) CBC with auto differential (07/19/2025 5:15 AM CDT) [facility] WBC 14.85(H) 3.80 - 9.90 K/cumm Hgb 9.9(L) 11.9 - 15.5 g/dL [facility] ([place]) Hct 32.8(L) 35.6 - 45.5 % [facility] ([place]) Plt 587(H) 150 - 400 K/cumm [facility] ([place]) MPV 9.7 9.1 - 12.3 fL [facility] ([place]) RBC 3.72(L) 3.90 - 5.20 M/cumm [facility] ([place]) MCV 88.2 81.3 - 96.4 fL [facility] ([place]) MCH 26.6(L) 27.1 - 33.3 pg [facility] ([place]) MCHC 30.2(L) 32.3 - 35.7 g/dL [facility] ([place]) RDW CV 16.0(H) 11.1 - 14.9 % [facility] ([place]) RDW SD 51.2(H) 35.7 - 48.1 fL [facility] ([place]) NRBC abs 0.00 0.00 - 0.01 K/cumm [facility] ([place]) Blood 07/19/2025 5:15 AM CDT 07/19/2025 6:16 AM CDT us Trip Ley MD LAB BLOOD ORDERABLES nal Result VIKKI MERCADO ([place]) 1 [facility] [place] [address] * (ABNORMAL) Comprehensive metabolic panel (07/19/2025 5:15 AM CDT) [facility] Sodium 142 135 - 145 mmol/L [facility] ([place]) Potassium, pl 4.1 3.3 - 4.9 mmol/L [facility] ([place]) Chloride 103 97 - 110 mmol/L [facility] ([place]) CO2 26 22 - 32 mmol/L [facility] ([place]) Anion gap 13 2 - 15 mmol/L [facility] ([place]) BUN 10 6 - 25 mg/dL [facility] ([place]) Creatinine 0.48(L) 0.60 - 1.10 mg/dL [facility] ([place]) Glucose 157 70 - 199 mg/dL [facility] ([place]) Comment: Interpretive Data Fasting glucose >/= 126 mg/dl is diagnostic for diabetes. Fasting is defined as no caloric intake for at least 8 hours. Fasting glucose between 100 mg/dl to 125 mg/dl is diagnostic of prediabetes. In a patient with classic symptoms of hyperglycemia or hyperglycemic crisis, a random glucose >/= 200 mg/dl is diagnostic for diabetes. In the absence of unequivocal hyperglycemia, results should be confirmed by repeat testing. The classification and Diagnosis of Diabetes Diabetes Care 2021; 46: S19-S40. Current interpretive data was last revised 2022. Calcium 9.7 8.5 - 10.3 mg/dL [facility] ([place]) Bilirubin, total 0.3 0.1 - 1.2 mg/dL [facility] ([place]) Protein, pl 7.5 6.5 - 8.5 g/dL [facility] ([place]) Albumin 3.4(L) 3.5 - 5.0 g/dL [facility] ([place]) Alk phos 128 40 - 130 Units/L [facility] ([place]) ALT 62(H) 7 - 45 Units/L [facility] ([place]) AST 38 10 - 45 Units/L [facility] ([place]) Blood 07/19/2025 5:15 AM CDT 07/19/2025 6:16 AM CDT us Trip Ley MD LAB BLOOD ORDERABLES Fi nal Result [facility] ([place]) 1 [facility] [place] [address] * POCT glucose (07/19/2025 2:12 AM CDT) Glucose, POC 113 70 - 199 mg/dL Blood 07/19/2025 2:12 AM CDT 07/19/2025 2:12 AM CDT Nova Michael MD LAB POCT ORDERABLES - DEV ICE Final Result Performing Organization Address [facility]/ZIP Co de Phone Number VIKKI MERCADO ([place]) 1 [facility] [place] [place] [address] * POCT glucose (07/18/2025 8:54 PM CDT) [facility] Glucose, POC 185 70 - 199 mg/dL Blood 07/18/2025 8:54 PM CDT 07/18/2025 8:54 PM CDT Nova Michael MD LAB POCT ORDERABLES - DEV ICE Final Result Performing Organization Address [facility] Co de Phone Number TITUSJOE MERCADO ([place]) 1 [place] [address] * (ABNORMAL) POCT glucose (07/18/2025 4:57 PM CDT) [facility] Glucose, POC 214(H) 70 - 199 mg/dL Blood 07/18/2025 4:57 PM CDT 07/18/2025 4:57 PM CDT Nova Michael MD LAB POCT ORDERABLES - DEV ICE Final Result Performing Organization Address City/[facility] Co de Phone Number VIKKI MERCADO ([place]) 1 [facility] [place] [place] [address] * Respiratory pathogen panel Nasopharyngeal (07/18/2025 3:51 PM CDT) [facility] Influenza A RNA Not Detected Not Detected [facility] Comment:Testing performed by : [facility], [address] [place] [address], [place]., [address] Influenza B RNA Not Detected Not Detected [facility] ([place]) Comment:Testing performed by : [facility], [address] [place] [address]., [id number] RSV RNA Not Detected Not Detected [facility] ([place]) Comment:Testing performed by : [facility], [address] [place] [address]., [id number] COVID-19 RNA Not Detected Not Detected [facility] ([place]) Comment:Testing performed by : [facility], [address] [place] [address]., [id number] Coronavirus 229E RNA Not Detected Not Detected [facility] ([place]) Comment:Testing performed by : [facility], [address] [place] [address]., [id number] Coronavirus HKU1 RNA Not Detected Not Detected [facility] ([place]) Comment:Testing performed by : [facility], [address] [place] [address]., [id number] Coronavirus NL63 RNA Not Detected Not Detected [facility] ([place]) Comment:Testing performed by : [facility], [address] [place] [address], [id number] Coronavirus OC43 RNA Not Detected Not Detected [facility] ([place]) Comment:Testing performed by : [facility], [address] [place] [address]., [address] Adenovirus DNA Not Detected Not Detected [facility] ([place]) Comment:Testing performed by : [facility], [address] [place] [address], [id number] Metapneumovirus RNA Not Detected Not Detected [facility] ([place]) Comment:Testing performed by : [facility], [address] [place] [address], [id number] Rhinovirus/Enterov irus RNA Not Detected Not Detected [facility] ([place]) Comment:Testing performed by : [facility], [address] [place] [address]., [address] Parainfluenza 1 RNA Not Detected Not Detected [facility] ([place]) Comment:Testing performed by : [facility], [address] [place] [address], [id number] Parainfluenza 2 RNA Not Detected Not Detected [facility] ([place]) Comment:Testing performed by : [facility], [address] [place] [address], [address] Parainfluenza 3 RNA Not Detected Not Detected [facility] ([place]) Comment:Testing performed by : [facility], [address] [place] [address]., [address] Parainfluenza 4 RNA Not Detected Not Detected [facility] ([place]) Comment:Testing performed by : [facility], [address] [place] [address]., [id number] B. pertussis DNA Not Detected Not Detected [facility] ([place]) Comment:Testing performed by : [facility], [address] [place] [address]., [id number] B. parapertussis DNA Not Detected Not Detected [facility] ([place]) Comment:Testing performed by : [facility], [address] [place] [address]., [id number] C. pneumoniae DNA Not Detected Not Detected [facility] ([place]) Comment:Testing performed by : [facility], [address] [place] [address]., [id number] M. pneumoniae DNA Not Detected Not Detected [facility] ([place]) Comment: Interpretive Data [employer] FilmArray Respiratory Panel (RP2.1) assay is a multiplexed real-time PCR based nucleic acid test capable of simultaneous qualitative detection and identification of multiple respiratory viral and bacterial nucleic acids, including SARS Coronavirus 2 (the causative agent of COVID-19). The following bacteria, viruses and virus subtypes can be identified using the FilmArray RP2.1 assay: Bordetella pertussis, Bordetella parapertussis, Chlamydia pneumoniae, Mycoplasma pneumoniae, Adenovirus, SARS Coronavirus 2, seasonal coronaviruses (Coronavirus HKU1, Coronavirus NL63, Coronavirus 229E, and Coronavirus OC43), Influenza A, Influenza A subtype H1, Influenza A subtype H3, Influenza A subtype 2009 H1, Influenza B, Metapneumovirus, Parainfluenza 1, Parainfluenza 2, Parainfluenza 3, Parainfluenza 4, RSV, Rhinovirus/Enterovirus. Due to the genetic similarity between human Rhinovirus and Enterovirus, the FilmArray RP2.1 assay cannot reliably differentiate them. Coronavirus OC43 may cross-react with some isolates of Coronavirus HKU1. A dual positive result may be due to cross-reactivity or may indicate a co- infection. The detection and identification of specific viral and bacterial nucleic acids from individuals exhibiting signs and symptoms of a respiratory infection aids in the diagnosis of respiratory infection if used in conjunction with other clinical and epidemiological information. The results of this test should not be used as the sole basis for diagnosis, treatment, or other management decisions. Negative results in the setting of a respiratory illness may be due to infection with pathogens that are not detected by this test. Positive results do not rule out infection/co-infection with other organisms. The agent(s) detected by the FilmArray RP2.1 may not be the definite cause of disease. Additional testing (lab, imaging, etc.) may be necessary when evaluating a patient with possible respiratory tract infection. The FilmArray RP2.1 assay has FDA clearance for testing of CLINICAL SCIENTIST swabs. The performance characteristics of this assay have been determined by [facility]. Current interpretive data was last revised on 2021. Testing performed by: [facility], [address] [place] [address]., [id number] Nasopharyngeal 07/18/2025 3: 51 PM CDT 07/18/2025 5:23 PM CDT Narrative VIKKI MERCADO ([place]) - 07/18/2025 7:00 PM CDT Is the Patient experiencing symptoms consistent with COVID?->Unknown Surveillance testing for transplant patient?->No Nova Michael MD LAB MICROBIOLOGY - GENERA L ORDERABLES Final Result VIKKI ROGELIO ([place]) 1 [facility] [place] [address] CH * XR CHEST 1 VIEW PORTABLE (07/18/2025 2:45 PM CDT) Anatomical Region Laterality Modality Body, Chest N/A Computed Radiogr aphy 07/18/2025 10:1 3 PM CDT Narrative 07/18/2025 10:14 PM CDT EXAM DESCRIPTION: XR CHEST 1 VIEW REASON FOR STUDY: wheezing wheezing TECHNIQUE: Single radiographic view of the chest. COMPARISON: None. FINDINGS: LUNGS/PLEURA: Evaluation of the lung morgan is somewhat limited secondary to underpenetration. Lungs are relatively well expanded. HEART/MEDIASTINUM: Cardiac silhouette is normal. Remaining mediastinal silhouettes are unremarkable. HARDWARE/LINES/TUBES: EKG leads overlie the film. BONES: No acute findings. IMPRESSION: Limited chest x-ray without gross cardiopulmonary disease. THIS IS AN ELECTRONICALLY VERIFIED FINAL REPORT 07/18/2025 10:14 PM - Electronically signed by Helen Mccullough M.D. SN: Report ID: [id number] Reading Location: [id number] Procedure Note Helen Mccullough MD - 07/18/2025 EXAM DESCRIPTION: XR CHEST 1 VIEW REASON FOR STUDY: wheezing wheezing TECHNIQUE: Single radiographic view of the chest. COMPARISON: None. FINDINGS: LUNGS/PLEURA: Evaluation of the lung morgan is somewhat limitedsecondary to underpenetration. Lungs are relatively well expanded. HEART/MEDIASTINUM: Cardiac silhouette is normal. Remaining mediastinal silhouettes are unremarkable. HARDWARE/LINES/TUBES: EKG leads overlie the film. BONES: No acute findings. IMPRESSION: Limited chest x-ray without gross cardiopulmonary disease. THIS IS AN ELECTRONICALLY VERIFIED FINAL REPORT 07/18/2025 10:14 PM - Electronically signed by Helen Mccullough M.D. SN: Report ID: [id number] Reading Location: [id number] Nova Michael MD IMG XR PROCEDURES Final R esult * (ABNORMAL) POCT glucose (07/18/2025 12:09 PM CDT) Glucose, POC 257(H) 70 - 199 mg/dL Blood 07/18/2025 12:0 9 PM CDT 07/18/2025 12:09 PM CDT Nova Michael MD LAB POCT ORDERABLES - DEV ICE Final Result [facility] ([place]) 1 [facility] [place] [address] * (ABNORMAL) POCT glucose (07/18/2025 7:59 AM CDT) Glucose, POC 288(H) 70 - 199 mg/dL Blood 07/18/2025 7:59 AM CDT 07/18/2025 7:59 AM CDT Nova Michael MD LAB POCT ORDERABLES - DEV ICE Final Result Performing Organization Address City/[facility]/ZIP Co de Phone Number [facility] ([place]) 1 [facility] [place] [place] [address] * eGFR (07/18/2025 4:36 AM CDT) eGFR >90 >=60 mL/min/1. 73 m2 Comment: Interpretive Data Reference Interval Normal >/= 90 mL/min/1.73m2 Mildly decreased* 60 - 89 mL/min/1.73m2 Mildly to moderately decreased 45 - 59 mL/min/1.73m2 Moderately to severely decreased 30 - 44 mL/min/1.73m2 Severely decreased 15 - 29 mL/min/1.73m2 Kidney Failure < 15 mL/min/1.73m2 *Relative to young adult level Estimated glomerular filtration rate is determined by the 2020 CKD-EPI equation recommended by the National Kidney Foundation (A Unifying Approach to GFR Estimation: Recommendations of the NKF-ASK Task Force on Reassessing the Inclusion of Race in Diagnosing Kidney Disease, JASN 2020). The CKD-EPI equation should not be used for patients with unstable renal function and has not been validated in children and those over 70. Current interpretive data was last reviewed 2021. Blood 07/18/2025 4:36 AM CDT 07/18/2025 5:48 AM CDT us Trip Ley MD LAB BLOOD ORDERABLES Fi nal Result Performing Organization Address City/[facility]/ZIP Co de Phone Number [facility] ([place]) 1 [facility] [place] [place] [address] * (ABNORMAL) Differential, auto (07/18/2025 4:36 AM CDT) Neutrophil abs 10.19(H) 1.50 - 6.50 K/cumm Imm gran abs 0.06 0.00 - 0.10 K/cumm [facility] ([place]) Lymphocyte abs 2.52 0.80 - 3.30 K/cumm [facility] ([place]) Monocyte abs 0.97(H) 0.20 - 0.80 K/cumm [facility] ([place]) Eosinophil abs 0.34 0.00 - 0.50 K/cumm [facility] ([place]) Basophil abs 0.05 0.00 - 0.10 K/cumm [facility] ([place]) Neutrophil pct 72.1 % [facility] ([place]) Comment: Interpretive Data Percent cell count reference ranges are not reported, since discordance with absolute values may lead to misinterpretation of CBC data. Current Interpretive Data was last revised on 2018. Imm gran pct 0.4 % [facility] ([place]) Comment: Interpretive Data Percent cell count reference ranges are not reported, since discordance with absolute values may lead to misinterpretation of CBC data. Current Interpretive Data was last revised on 2018. Lymphocyte pct 17.8 % [facility] ([place]) Comment: Interpretive Data Percent cell count reference ranges are not reported, since discordance with absolute values may lead to misinterpretation of CBC data. Current Interpretive Data was last revised on 2018. Monocyte pct 6.9 % [facility] ([place]) Comment: Interpretive Data Percent cell count reference ranges are not reported, since discordance with absolute values may lead to misinterpretation of CBC data. Current Interpretive Data was last revised on 2018. Eosinophil pct 2.4 % [facility] ([place]) Comment: Interpretive Data Percent cell count reference ranges are not reported, since discordance with absolute values may lead to misinterpretation of CBC data. Current Interpretive Data was last revised on 2018. Basophil pct 0.4 % [facility] ([place]) Comment: Interpretive Data Percent cell count reference ranges are not reported, since discordance with absolute values may lead to misinterpretation of CBC data. Current Interpretive Data was last revised on 2018. Blood 07/18/2025 4:36 AM CDT 07/18/2025 5:21 AM CDT us Trip Ley MD LAB BLOOD ORDERABLES Fi nal Result VIKKI MERCADO ([place]) 1 [facility] [place] [address] * Pro B-type natriuretic peptide (07/18/2025 4:36 AM CDT) NT-proBNP 178 <=300 pg/mL VIKKI MERCADO ([place]) Comment: Interpretive Comments: A. Dyspnea in Acute Care Setting All Ages: < 300 pg/ml, acute heart failure unlikely. < 50 yrs: 300 - 450 pg/ml, further investigation warranted. > 450 pg/ml, acute heart failure likely. 50 - 74 yrs: 300 - 900 pg/ml, further investigation warranted. > 900 pg/ml, acute heart failure likely . > or = 75 yrs: 450 - 1800 pg/ml, further investigation warranted. > 1800 pg/ml, acute heart failure likely. B. Non-acute Setting < 75 yrs < 125 pg/ml, rules out heart failure. > or = 125 pg/ml, further investigation warranted. > or = 75 yrs < 450 pg/ml, rules out heart failure. > or = 450 pg/ml, further investigation warranted. - Knowledge of each individual patient's NT-proBNP range may be more useful than using similar cut-points for every patient. Please note that marked elevations in NT-proBNP levels may be observed in state other than Left Ventricular Congestive Failure, including: acute coronary syndromes, right heart strain/failure (including pulmonary embolism and cor pulmonale), critical illness, renal failure, as well as advanced age. - References: 1. Berry HYMAN et.al. Eur Heart J. 2006:27:330-337. 2. Triny RW, Jj CAMACHO. J. AM Eugenia Cardiol: Cardiovasc Imag. 2009;2: 216- 225. Interpretive Data Last Revised Date: 2018. Blood 07/18/2025 4:36 AM CDT 07/18/2025 2:39 PM CDT us Nova Michael MD LAB BLOOD ORDERABLES Yolanda l Result [facility] ([place]) 1 [facility] [place] [address] * (ABNORMAL) CBC with auto differential (07/18/2025 4:36 AM CDT) WBC 14.13(H) 3.80 - 9.90 K/cumm Hgb 9.5(L) 11.9 - 15.5 g/dL [facility] ([place]) Hct 31.4(L) 35.6 - 45.5 % [facility] ([place]) Plt 516(H) 150 - 400 K/cumm [facility] ([place]) MPV 9.9 9.1 - 12.3 fL [facility] ([place]) RBC 3.56(L) 3.90 - 5.20 M/cumm [facility] ([place]) MCV 88.2 81.3 - 96.4 fL [facility] ([place]) MCH 26.7(L) 27.1 - 33.3 pg [facility] ([place]) MCHC 30.3(L) 32.3 - 35.7 g/dL [facility] ([place]) RDW CV 16.0(H) 11.1 - 14.9 % [facility] ([place]) RDW SD 51.1(H) 35.7 - 48.1 fL [facility] ([place]) NRBC abs 0.00 0.00 - 0.01 K/cumm [facility] ([place]) Blood 07/18/2025 4:36 AM CDT 07/18/2025 5:21 AM CDT us Trip Ley MD LAB BLOOD ORDERABLES Fi nal Result VIKKI MERCADO ([place]) 1 [facility] [place] [address] * (ABNORMAL) Comprehensive metabolic panel (07/18/2025 4:36 AM CDT) Sodium 140 135 - 145 mmol/L [facility] ([place]) Potassium, pl 4.0 3.3 - 4.9 mmol/L [facility] ([place]) Chloride 103 97 - 110 mmol/L [facility] ([place]) CO2 22 22 - 32 mmol/L [facility] ([place]) Anion gap 15 2 - 15 mmol/L [facility] ([place]) BUN 10 6 - 25 mg/dL [facility] ([place]) Creatinine 0.45(L) 0.60 - 1.10 mg/dL [facility] ([place]) Glucose 239(H) 70 - 199 mg/dL [facility] ([place]) Comment: Interpretive Data Fasting glucose >/= 126 mg/dl is diagnostic for diabetes. Fasting is defined as no caloric intake for at least 8 hours. Fasting glucose between 100 mg/dl to 125 mg/dl is diagnostic of prediabetes. In a patient with classic symptoms of hyperglycemia or hyperglycemic crisis, a random glucose >/= 200 mg/dl is diagnostic for diabetes. In the absence of unequivocal hyperglycemia, results should be confirmed by repeat testing. The classification and Diagnosis of Diabetes Diabetes Care 2021; 46: S19-S40. Current interpretive data was last revised 2022. Calcium 9.1 8.5 - 10.3 mg/dL [facility] ([place]) Bilirubin, total 0.4 0.1 - 1.2 mg/dL [facility] ([place]) Protein, pl 7.1 6.5 - 8.5 g/dL [facility] ([place]) Albumin 3.1(L) 3.5 - 5.0 g/dL [facility] ([place]) Alk phos 115 40 - 130 Units/L [facility] [facility] ([facility]) ALT 51(H) 7 - 45 Units/L [facility] ([place]) AST 38 10 - 45 Units/L [facility] ([place]) Blood 07/18/2025 4:36 AM CDT 07/18/2025 5:48 AM CDT Trip Ley MD LAB BLOOD ORDERABLES Fi nal Result VIKKI MERCADO ([place]) 1 [facility] [place] [address] * POCT glucose (07/18/2025 1:59 AM CDT) Glucose, POC 185 70 - 199 mg/dL Comment:Glu2: RN/MD Notified Blood 07/18/2025 1:59 AM CDT 07/18/2025 1:59 AM CDT us Nova Michael MD LAB POCT ORDERABLES - DEV ICE Final Result Performing Organization Address [facility] Co de Phone Number VIKKI MERCADO ([place]) 1 [facility] [place] [address] * Vancomycin level trough (07/17/2025 9:06 PM CDT) [facility] Vancomycin trough 17.1 10.0 - 20.0 mcg/mL VIKKI MERCADO ([place]) Blood 07/17/2025 9:06 PM CDT 07/17/2025 9:11 PM CDT us Sylvia Malone MD LAB BLOOD ORDERABLES Final Resul t Performing Organization Address [facility] Co de Phone Number VIKKI MERCADO ([place]) 1 [facility] [place] [place] [address] * (ABNORMAL) POCT glucose (07/17/2025 7:39 PM CDT) Glucose, POC 236(H) 70 - 199 mg/dL Blood 07/17/2025 7:39 PM CDT 07/17/2025 7:39 PM CDT us Nova Michael MD LAB POCT ORDERABLES - DEV ICE Final Result Performing Organization Address City/[facility]/ZIP Co de Phone Number VIKKI MERCADO ([place]) 1 [facility] [place] [place] [address] * (ABNORMAL) POCT glucose (07/17/2025 4:40 PM CDT) Glucose, POC 225(H) 70 - 199 mg/dL Blood 07/17/2025 4:40 PM CDT 07/17/2025 4:40 PM CDT Nova Michael MD LAB POCT ORDERABLES - DEV ICE Final Result Performing Organization Address City/[facility]/ZIP Co de Phone Number VIKKI MERCADO ([place]) 1 [facility] [place] [address] * (ABNORMAL) POCT glucose (07/17/2025 11:28 AM CDT) Glucose, POC 337(H) 70 - 199 mg/dL Blood 07/17/2025 11:2 8 AM CDT 07/17/2025 11:28 AM CDT Nova Michael MD LAB POCT ORDERABLES - DEV ICE Final Result Performing Organization Address City/[facility] Co de Phone Number VIKKI MERCADO ([place]) 1 [facility] [place] [address] * (ABNORMAL) POCT glucose (07/17/2025 7:38 AM CDT) Glucose, POC 315(H) 70 - 199 mg/dL Blood 07/17/2025 7:38 AM CDT 07/17/2025 7:38 AM CDT Nova Michael MD LAB POCT ORDERABLES - DEV ICE Final Result Performing Organization Address City/[facility] Co de Phone Number VIKKI MERCADO ([place]) 1 [facility] [place] [address] * eGFR (07/17/2025 5:44 AM CDT) eGFR >90 >=60 mL/min/1. 73 m2 Comment: Interpretive Data Reference Interval Normal >/= 90 mL/min/1.73m2 Mildly decreased* 60 - 89 mL/min/1.73m2 Mildly to moderately decreased 45 - 59 mL/min/1.73m2 Moderately to severely decreased 30 - 44 mL/min/1.73m2 Severely decreased 15 - 29 mL/min/1.73m2 Kidney Failure < 15 mL/min/1.73m2 *Relative to young adult level Estimated glomerular filtration rate is determined by the 2020 CKD-EPI equation recommended by the National Kidney Foundation (A Unifying Approach to GFR Estimation: Recommendations of the NKF-ASK Task Force on Reassessing the Inclusion of Race in Diagnosing Kidney Disease, JASN 2020). The CKD-EPI equation should not be used for patients with unstable renal function and has not been validated in children and those over 70. Current interpretive data was last reviewed 2021. Blood 07/17/2025 5:44 AM CDT 07/17/2025 6:11 AM CDT us Trip Ley MD LAB BLOOD ORDERABLES Fi nal Result [facility] ([place]) 1 [facility] [place] [address] * (ABNORMAL) Differential, auto (07/17/2025 5:44 AM CDT) Neutrophil abs 13.40(H) 1.50 - 6.50 K/cumm Imm gran abs 0.07 0.00 - 0.10 K/cumm [facility] ([place]) Lymphocyte abs 2.19 0.80 - 3.30 K/cumm [facility] ([place]) Monocyte abs 1.06(H) 0.20 - 0.80 K/cumm [facility] ([place]) Eosinophil abs 0.30 0.00 - 0.50 K/cumm [facility] ([place]) Basophil abs 0.07 0.00 - 0.10 K/cumm [facility] ([place]) Neutrophil pct 78.4 % [facility] ([place]) Comment: Interpretive Data Percent cell count reference ranges are not reported, since discordance with absolute values may lead to misinterpretation of CBC data. Current Interpretive Data was last revised on 2018. Imm gran pct 0.4 % [facility] ([place]) Comment: Interpretive Data Percent cell count reference ranges are not reported, since discordance with absolute values may lead to misinterpretation of CBC data. Current Interpretive Data was last revised on 2018. Lymphocyte pct 12.8 % [facility] ([place]) Comment: Interpretive Data Percent cell count reference ranges are not reported, since discordance with absolute values may lead to misinterpretation of CBC data. Current Interpretive Data was last revised on 2018. Monocyte pct 6.2 % [facility]KK[facility] MERCAD[facility] ([place]) Comment: Interpretive Data Percent cell count reference ranges are not reported, since discordance with absolute values may lead to misinterpretation of CBC data. Current Interpretive Data was last revised on 2018. Eosinophil pct 1.8 % [facility] ([place]) Comment: Interpretive Data Percent cell count reference ranges are not reported, since discordance with absolute values may lead to misinterpretation of CBC data. Current Interpretive Data was last revised on 2018. Basophil pct 0.4 % [facility]KK[facility] MERCADO ([place]) Comment: Interpretive Data Percent cell count reference ranges are not reported, since discordance with absolute values may lead to misinterpretation of CBC data. Current Interpretive Data was last revised on 2018. Blood 07/17/2025 5:44 AM CDT 07/17/2025 6:11 AM CDT us Trip Ley MD LAB BLOOD ORDERABLES Fi nal Result VIKKI MERCADO ([place]) 1 [facility] Department of Laboratories [place], [place] [id number] * (ABNORMAL) CBC with auto differential (07/17/2025 5:44 AM CDT) WBC 17.09(H) 3.80 - 9.90 K/cumm Hgb 9.6(L) 11.9 - 15.5 g/dL [facility] ([place]) Hct 31.7(L) 35.6 - 45.5 % [facility] ([place]) Plt 509(H) 150 - 400 K/cumm [facility] ([place]) MPV 9.8 9.1 - 12.3 fL [facility] ([place]) RBC 3.61(L) 3.90 - 5.20 M/cumm [facility] ([place]) MCV 87.8 81.3 - 96.4 fL [facility] ([place]) MCH 26.6(L) 27.1 - 33.3 pg [facility] ([place]) MCHC 30.3(L) 32.3 - 35.7 g/dL [facility] ([place]) RDW CV 15.9(H) 11.1 - 14.9 % [facility] ([place]) RDW SD 49.5(H) 35.7 - 48.1 fL [facility] ([place]) NRBC abs 0.00 0.00 - 0.01 K/cumm [facility] ([place]) Blood 07/17/2025 5:44 AM CDT 07/17/2025 6:11 AM CDT us Trip Ley MD LAB BLOOD ORDERABLES nal Result [facility] ([place]) 1 [facility] [place] [address] * (ABNORMAL) Comprehensive metabolic panel (07/17/2025 5:44 AM CDT) Sodium 138 135 - 145 mmol/L [facility] ([place]) Potassium, pl 3.9 3.3 - 4.9 mmol/L [facility] ([place]) Chloride 103 97 - 110 mmol/L [facility] ([place]) CO2 20(L) 22 - 32 mmol/L [facility] ([place]) Anion gap 15 2 - 15 mmol/L [facility] ([place]) BUN 10 6 - 25 mg/dL [facility] ([place]) Creatinine 0.47(L) 0.60 - 1.10 mg/dL [facility] ([place]) Glucose 310(H) 70 - 199 mg/dL [facility] ([place]) Comment: Interpretive Data Fasting glucose >/= 126 mg/dl is diagnostic for diabetes. Fasting is defined as no caloric intake for at least 8 hours. Fasting glucose between 100 mg/dl to 125 mg/dl is diagnostic of prediabetes. In a patient with classic symptoms of hyperglycemia or hyperglycemic crisis, a random glucose >/= 200 mg/dl is diagnostic for diabetes. In the absence of unequivocal hyperglycemia, results should be confirmed by repeat testing. The classification and Diagnosis of Diabetes Diabetes Care 202; 46: S19-S40. Current interpretive data was last revised 2022. Calcium 8.8 8.5 - 10.3 mg/dL [facility] ([place]) Bilirubin, total 0.3 0.1 - 1.2 mg/dL [facility] ([place]) Protein, pl 6.8 6.5 - 8.5 g/dL [facility] ([place]) Albumin 3.1(L) 3.5 - 5.0 g/dL [facility] ([place]) Alk phos 109 40 - 130 Units/L [facility] ([place]) ALT 26 7 - 45 Units/L [facility] ([place]) AST 20 10 - 45 Units/L [facility] ([place]) Blood 07/17/2025 5:44 AM CDT 07/17/2025 6:11 AM CDT us Trip Ley MD LAB BLOOD ORDERABLES Fi nal Result Performing Organization Address [facility]/ZIP Co de Phone Number VIKKI MERCADO ([place]) 1 [facility] [place] [address] * POCT glucose (07/17/2025 2:06 AM CDT) Glucose, POC 180 70 - 199 mg/dL Blood 07/17/2025 2:06 AM CDT 07/17/2025 2:06 AM CDT us Sylvia Malone MD LAB POCT ORDERABLES - DEVICE Fin al Result VIKKI MERCADO ([place]) 1 [facility] [place] [address] * (ABNORMAL) POCT glucose (07/16/2025 8:50 PM CDT) Glucose, POC 253(H) 70 - 199 mg/dL Blood 07/16/2025 8:50 PM CDT 07/16/2025 8:50 PM CDT us Sylvia Malone MD LAB POCT ORDERABLES - DEVICE Fin al Result VIKKI MERCADO ([place]) 1 [place] [address] * (ABNORMAL) POCT glucose (07/16/2025 4:51 PM CDT) Glucose, POC 217(H) 70 - 199 mg/dL Blood 07/16/2025 4:51 PM CDT 07/16/2025 4:51 PM CDT us Sylvia Malone MD LAB POCT ORDERABLES - DEVICE Fin al Result Performing Organization Address City/[facility]/ZIP Co de Phone Number VIKKI MERCADO ([place]) 1 [facility] [place] [address] * (ABNORMAL) POCT glucose (07/16/2025 12:06 PM CDT) Glucose, POC 225(H) 70 - 199 mg/dL Blood 07/16/2025 12:0 6 PM CDT 07/16/2025 12:06 PM CDT us Sylvia Malone MD LAB POCT ORDERABLES - DEVICE Fin al Result VIKKI MERCADO ([place]) 1 [facility] [place] [address] * (ABNORMAL) POCT glucose (07/16/2025 7:54 AM CDT) [facility] Glucose, POC 237(H) 70 - 199 mg/dL Blood 07/16/2025 7:54 AM CDT 07/16/2025 7:54 AM CDT us Sylvia Malone MD LAB POCT ORDERABLES - DEVICE Fin al Result Performing Organization Address City/[facility]/ZIP Co de Phone Number VIKKI MERCADO ([place]) [address] [place] [address] [place] [address] * eGFR (07/16/2025 7:45 AM CDT) [facility] eGFR >90 >=60 mL/min/1. 73 m2 Comment: Interpretive Data Reference Interval Normal >/= 90 mL/min/1.73m2 Mildly decreased* 60 - 89 mL/min/1.73m2 Mildly to moderately decreased 45 - 59 mL/min/1.73m2 Moderately to severely decreased 30 - 44 mL/min/1.73m2 Severely decreased 15 - 29 mL/min/1.73m2 Kidney Failure < 15 mL/min/1.73m2 *Relative to young adult level Estimated glomerular filtration rate is determined by the 2020 CKD-EPI equation recommended by the National Kidney Foundation (A Unifying Approach to GFR Estimation: Recommendations of the NKF-ASK Task Force on Reassessing the Inclusion of Race in Diagnosing Kidney Disease, JASN 2020). The CKD-EPI equation should not be used for patients with unstable renal function and has not been validated in children and those over 70. Current interpretive data was last reviewed 2021. Blood 07/16/2025 7:45 AM CDT 07/16/2025 8:12 AM CDT us Trip Ley MD LAB BLOOD ORDERABLES Fi nal Result [facility] ([place]) 1 [facility] [place] [address] * (ABNORMAL) Differential, auto (07/16/2025 7:45 AM CDT) Neutrophil abs 16.04(H) 1.50 - 6.50 K/cumm Imm gran abs 0.11(H) 0.00 - 0.10 K/cumm [facility] ([place]) Lymphocyte abs 2.14 0.80 - 3.30 K/cumm [facility] ([place]) Monocyte abs 1.18(H) 0.20 - 0.80 K/cumm [facility] ([place]) Eosinophil abs 0.11 0.00 - 0.50 K/cumm [facility] ([place]) Basophil abs 0.06 0.00 - 0.10 K/cumm [facility] ([place]) Neutrophil pct 81.6 % [facility] ([place]) Comment: Interpretive Data Percent cell count reference ranges are not reported, since discordance with absolute values may lead to misinterpretation of CBC data. Current Interpretive Data was last revised on 2018. Imm gran pct 0.6 % [facility] ([place]) Comment: Interpretive Data Percent cell count reference ranges are not reported, since discordance with absolute values may lead to misinterpretation of CBC data. Current Interpretive Data was last revised on 2018. Lymphocyte pct 10.9 % [facility] ([place]) Comment: Interpretive Data Percent cell count reference ranges are not reported, since discordance with absolute values may lead to misinterpretation of CBC data. Current Interpretive Data was last revised on 2018. Monocyte pct 6.0 % [facility] ([place]) Comment: Interpretive Data Percent cell count reference ranges are not reported, since discordance with absolute values may lead to misinterpretation of CBC data. Current Interpretive Data was last revised on 2018. Eosinophil pct 0.6 % [facility] ([place]) Comment: Interpretive Data Percent cell count reference ranges are not reported, since discordance with absolute values may lead to misinterpretation of CBC data. Current Interpretive Data was last revised on 2018. Basophil pct 0.3 % [facility] ([place]) Comment: Interpretive Data Percent cell count reference ranges are not reported, since discordance with absolute values may lead to misinterpretation of CBC data. Current Interpretive Data was last revised on 2018. Blood 07/16/2025 7:45 AM CDT 07/16/2025 8:12 AM CDT us Trip Ley MD LAB BLOOD ORDERABLES Fi nal Result [facility] ([place]) 1 [facility] [place] [address] * (ABNORMAL) CBC with auto differential (07/16/2025 7:45 AM CDT) WBC 19.64(H) 3.80 - 9.90 K/cumm Hgb 9.3(L) 11.9 - 15.5 g/dL [facility] ([place]) Hct 30.6(L) 35.6 - 45.5 % [facility] ([place]) Plt 493(H) 150 - 400 K/cumm [facility] ([place]) MPV 9.9 9.1 - 12.3 fL [facility] ([place]) RBC 3.43(L) 3.90 - 5.20 M/cumm [facility] ([place]) MCV 89.2 81.3 - 96.4 fL [facility] ([place]) MCH 27.1 27.1 - 33.3 pg [facility] ([place]) MCHC 30.4(L) 32.3 - 35.7 g/dL [facility] ([place]) RDW CV 15.9(H) 11.1 - 14.9 % [facility] ([place]) RDW SD 50.7(H) 35.7 - 48.1 fL [facility] ([place]) NRBC abs 0.00 0.00 - 0.01 K/cumm [facility] ([place]) Blood 07/16/2025 7:45 AM CDT 07/16/2025 8:12 AM CDT us Trip Ley MD LAB BLOOD ORDERABLES Fi nal Result VIKKI MERCADO ([place]) 1 [facility] [place] [address] * (ABNORMAL) Vancomycin level trough (07/16/2025 7:45 AM CDT) Vancomycin trough 9.5(L) 10.0 - 20.0 mcg/mL [facility] ([place]) Blood 07/16/2025 7:45 AM CDT 07/16/2025 8:12 AM CDT us Miranda Chambers MD LAB BLOOD ORDERABLES Final Result [facility] ([place]) 1 [facility] [place] [address] * (ABNORMAL) Comprehensive metabolic panel (07/16/2025 7:45 AM CDT) Sodium 137 135 - 145 mmol/L [facility] ([place]) Potassium, pl 4.0 3.3 - 4.9 mmol/L [facility] ([place]) Chloride 102 97 - 110 mmol/L [facility] ([place]) CO2 22 22 - 32 mmol/L [facility] ([place]) Anion gap 13 2 - 15 mmol/L [facility] ([place]) BUN 8 6 - 25 mg/dL [facility] ([place]) Creatinine 0.42(L) 0.60 - 1.10 mg/dL [facility] ([place]) Glucose 243(H) 70 - 199 mg/dL [facility] ([place]) Comment: Interpretive Data Fasting glucose >/= 126 mg/dl is diagnostic for diabetes. Fasting is defined as no caloric intake for at least 8 hours. Fasting glucose between 100 mg/dl to 125 mg/dl is diagnostic of prediabetes. In a patient with classic symptoms of hyperglycemia or hyperglycemic crisis, a random glucose >/= 200 mg/dl is diagnostic for diabetes. In the absence of unequivocal hyperglycemia, results should be confirmed by repeat testing. The classification and Diagnosis of Diabetes Diabetes Care 2021; 46: S19-S40. Current interpretive data was last revised 2022. Calcium 8.9 8.5 - 10.3 mg/dL [facility] ([place]) Bilirubin, total 0.3 0.1 - 1.2 mg/dL [facility] ([place]) Protein, pl 6.8 6.5 - 8.5 g/dL [facility] ([place]) Albumin 3.3(L) 3.5 - 5.0 g/dL [facility] ([place]) Alk phos 84 40 - 130 Units/L [facility] ([place]) ALT 20 7 - 45 Units/L [facility] ([place]) AST 15 10 - 45 Units/L [facility] ([place]) Blood 07/16/2025 7:45 AM CDT 07/16/2025 8:12 AM CDT us Trip Ley MD LAB BLOOD ORDERABLES Fi nal Result VIKKI MERCADO ([place]) 1 [facility] [place] [employer] [place] [address] * (ABNORMAL) POCT glucose (07/16/2025 5:28 AM CDT) Glucose, POC 321(H) 70 - 199 mg/dL Blood 07/16/2025 5:28 AM CDT 07/16/2025 5:28 AM CDT us Sylvia Malone MD LAB POCT ORDERABLES - DEVICE Fin al Result Performing Organization Address [facility]/ZIP Co de Phone Number VIKKI MERCADO ([place]) 1 [facility] [place] [employer] [place] [address] * (ABNORMAL) POCT glucose (07/16/2025 2:18 AM CDT) Glucose, POC 311(H) 70 - 199 mg/dL Blood 07/16/2025 2:18 AM CDT 07/16/2025 2:18 AM CDT Sylvia Malone MD LAB POCT ORDERABLES - DEVICE Fin al Result VIKKI MERCADO ([place]) 1 [facility] [place] [address] * (ABNORMAL) POCT glucose (07/15/2025 9:53 PM CDT) Glucose, POC 231(H) 70 - 199 mg/dL Blood 07/15/2025 9:53 PM CDT 07/15/2025 9:53 PM CDT Sylvia Malone MD LAB POCT ORDERABLES - DEVICE Fin al Result Performing Organization Address City/[facility] Co de Phone Number [facility] ([place]) 1 [facility] [place] [address] * (ABNORMAL) POCT glucose (07/15/2025 4:32 PM CDT) Glucose, POC 248(H) 70 - 199 mg/dL Blood 07/15/2025 4:32 PM CDT 07/15/2025 4:32 PM CDT Sylvia Malone MD LAB POCT ORDERABLES - DEVICE Fin al Result Performing Organization Address [facility] Co de Phone Number [facility] ([place]) [address] [place] [address] [place] [address] * (ABNORMAL) POCT glucose (07/15/2025 11:34 AM CDT) Glucose, POC 375(H) 70 - 199 mg/dL Blood 07/15/2025 11:3 4 AM CDT 07/15/2025 11:34 AM CDT Sylvia Malone MD LAB POCT ORDERABLES - DEVICE Fin al Result Performing Organization Address City/[facility] Co de Phone Number [facility] ([place]) 1 [facility] [place] [address] * (ABNORMAL) POCT glucose (07/15/2025 7:25 AM CDT) Glucose, POC 267(H) 70 - 199 mg/dL Blood 07/15/2025 7:25 AM CDT 07/15/2025 7:25 AM CDT us Sylvia Malone MD LAB POCT ORDERABLES - DEVICE Fin al Result VIKKI MERCADO ([place]) 1 [facility] [place] [place] [address] * eGFR (07/15/2025 4:19 AM CDT) eGFR >90 >=60 mL/min/1. 73 m2 Comment: Interpretive Data Reference Interval Normal >/= 90 mL/min/1.73m2 Mildly decreased* 60 - 89 mL/min/1.73m2 Mildly to moderately decreased 45 - 59 mL/min/1.73m2 Moderately to severely decreased 30 - 44 mL/min/1.73m2 Severely decreased 15 - 29 mL/min/1.73m2 Kidney Failure < 15 mL/min/1.73m2 *Relative to young adult level Estimated glomerular filtration rate is determined by the 2020 CKD-EPI equation recommended by the National Kidney Foundation (A Unifying Approach to GFR Estimation: Recommendations of the NKF-ASK Task Force on Reassessing the Inclusion of Race in Diagnosing Kidney Disease, JASN 2020). The CKD-EPI equation should not be used for patients with unstable renal function and has not been validated in children and those over 70. Current interpretive data was last reviewed 2021. Blood 07/15/2025 4:19 AM CDT 07/15/2025 5:16 AM CDT us Trip Ley MD LAB BLOOD ORDERABLES Fi nal Result VIKKI MERCADO ([place]) 1 [facility] [place] [place] [address] * (ABNORMAL) Differential, auto (07/15/2025 4:19 AM CDT) Neutrophil abs 17.23(H) 1.50 - 6.50 K/cumm Imm gran abs 0.13(H) 0.00 - 0.10 K/cumm [facility] ([place]) Lymphocyte abs 1.86 0.80 - 3.30 K/cumm [facility] ([place]) Monocyte abs 1.65(H) 0.20 - 0.80 K/cumm [facility] ([place]) Eosinophil abs 0.10 0.00 - 0.50 K/cumm [facility] ([place]) Basophil abs 0.07 0.00 - 0.10 K/cumm [facility] ([place]) Neutrophil pct 82.0 % [facility] ([place]) Comment: Interpretive Data Percent cell count reference ranges are not reported, since discordance with absolute values may lead to misinterpretation of CBC data. Current Interpretive Data was last revised on 2018. Imm gran pct 0.6 % [facility] ([place]) Comment: Interpretive Data Percent cell count reference ranges are not reported, since discordance with absolute values may lead to misinterpretation of CBC data. Current Interpretive Data was last revised on 2018. Lymphocyte pct 8.8 % [facility] ([place]) Comment: Interpretive Data Percent cell count reference ranges are not reported, since discordance with absolute values may lead to misinterpretation of CBC data. Current Interpretive Data was last revised on 2018. Monocyte pct 7.8 % [facility] ([place]) Comment: Interpretive Data Percent cell count reference ranges are not reported, since discordance with absolute values may lead to misinterpretation of CBC data. Current Interpretive Data was last revised on 2018. Eosinophil pct 0.5 % [facility] ([place]) Comment: Interpretive Data Percent cell count reference ranges are not reported, since discordance with absolute values may lead to misinterpretation of CBC data. Current Interpretive Data was last revised on 2018. Basophil pct 0.3 % [facility] ([place]) Comment: Interpretive Data Percent cell count reference ranges are not reported, since discordance with absolute values may lead to misinterpretation of CBC data. Current Interpretive Data was last revised on 2018. Blood 07/15/2025 4:19 AM CDT 07/15/2025 5:16 AM CDT us Trip Ley MD LAB BLOOD ORDERABLES Fi nal Result [facility] ([place]) 1 [facility] [place] [place] [address] * (ABNORMAL) CBC with auto differential (07/15/2025 4:19 AM CDT) WBC 21.04(H) 3.80 - 9.90 K/cumm Hgb 9.9(L) 11.9 - 15.5 g/dL [facility] ([place]) Hct 32.2(L) 35.6 - 45.5 % [facility] ([place]) Plt 516(H) 150 - 400 K/cumm [facility] ([place]) MPV 10.3 9.1 - 12.3 fL [facility] ([place]) RBC 3.63(L) 3.90 - 5.20 M/cumm [facility] ([place]) MCV 88.7 81.3 - 96.4 fL [facility] ([place]) MCH 27.3 27.1 - 33.3 pg [facility] ([place]) MCHC 30.7(L) 32.3 - 35.7 g/dL [facility] ([place]) RDW CV 15.8(H) 11.1 - 14.9 % [facility] ([place]) RDW SD 50.9(H) 35.7 - 48.1 fL [facility] ([place]) NRBC abs 0.00 0.00 - 0.01 K/cumm [facility] ([place]) Blood 07/15/2025 4:19 AM CDT 07/15/2025 5:16 AM CDT us Trip Ley MD LAB BLOOD ORDERABLES Fi nal Result VIKKI MERCADO ([place]) 1 [facility] [employer] [place] [place] [address] * Magnesium (07/15/2025 4:19 AM CDT) Magnesium 1.6 1.4 - 2.5 mg/dL [facility] ([place]) Blood 07/15/2025 4:19 AM CDT 07/15/2025 5:16 AM CDT Trip Ley MD LAB BLOOD ORDERABLES Fi nal Result [facility] ([place]) 1 [facility] [place] [address] * (ABNORMAL) Comprehensive metabolic panel (07/15/2025 4:19 AM CDT) Sodium 135 135 - 145 mmol/L [facility] ([place]) Potassium, pl 3.9 3.3 - 4.9 mmol/L [facility] ([place]) Chloride 101 97 - 110 mmol/L [facility] ([place]) CO2 21(L) 22 - 32 mmol/L [facility] ([place]) Anion gap 13 2 - 15 mmol/L [facility] ([place]) BUN 14 6 - 25 mg/dL [facility] ([place]) Creatinine 0.49(L) 0.60 - 1.10 mg/dL [facility] ([place]) Glucose 269(H) 70 - 199 mg/dL [facility] ([place]) Comment: Interpretive Data Fasting glucose >/= 126 mg/dl is diagnostic for diabetes. Fasting is defined as no caloric intake for at least 8 hours. Fasting glucose between 100 mg/dl to 125 mg/dl is diagnostic of prediabetes. In a patient with classic symptoms of hyperglycemia or hyperglycemic crisis, a random glucose >/= 200 mg/dl is diagnostic for diabetes. In the absence of unequivocal hyperglycemia, results should be confirmed by repeat testing. The classification and Diagnosis of Diabetes Diabetes Care 2021; 46: S19-S40. Current interpretive data was last revised 2022. Calcium 8.9 8.5 - 10.3 mg/dL [facility] ([place]) Bilirubin, total 0.4 0.1 - 1.2 mg/dL [facility] ([place]) Protein, pl 7.0 6.5 - 8.5 g/dL [facility] ([place]) Albumin 3.5 3.5 - 5.0 g/dL [facility] ([place]) Alk phos 82 40 - 130 Units/L [facility] ([place]) ALT 18 7 - 45 Units/L [facility] ([place]) AST 13 10 - 45 Units/L [facility] ([place]) Blood 07/15/2025 4:19 AM CDT 07/15/2025 5:16 AM CDT us Trip Ley MD LAB BLOOD ORDERABLES Fi nal Result VIKKI [facility] ([place]) 1 [facility] [place] [address] * (ABNORMAL) POCT glucose (07/15/2025 2:34 AM CDT) Glucose, POC 268(H) 70 - 199 mg/dL Blood 07/15/2025 2:34 AM CDT 07/15/2025 2:34 AM CDT us Miranda Chambers MD LAB POCT ORDERABLES - DEVICE Final Result Performing Organization Address [facility] Co de Phone Number VIKKI [facility] ([place]) 1 [facility] [place] [address] * (ABNORMAL) Urinalysis reflex to microscopic and culture Urine (07/14/2025 10:44 PM CDT) Color, ur Yellow Yellow Clarity, ur Clear Clear VIKKI A ([place]) Specific gravity, ur 1.037(H) 1.003 - 1.030 [facility] ([place]) pH, urine 6.0 [facility] ([place]) Comment: Interpretive Data U rine pH is affected by diet, medications, systemic acid-base disturbances, and renal tubular function. pH may affect urinary stone formation. For example, urine pH below 6.0 may help reduce the tendency for calcium phosphate stones and pH greater than 6.0 may reduce the tendency for uric acid stone formation. Source: [facility] [employer] Current Interpretive Data was last revised on 2017 Protein, ur ql Trace Negative [facility] ([place]) Glucose, ur ql 1+(A) Negative [facility] ([place]) Ketones, ur Negative Negative [facility] ([place]) Bilirubin, ur Negative Negative [facility] ([place]) Blood, ur Negative Negative [facility] ([place]) Urobilinogen, ur <2.0 <2.0 mg/dL [facility] ([place]) Nitrite, ur Negative Negative [facility] ([place]) Leukocyte esterase, ur 4+(A) Negative [facility] ([place]) UA reflex comment Reflex to microscopic UA will be performed. [facility] ([place]) Urine 07/14/2025 10:4 4 PM CDT 07/14/2025 10:56 PM CDT Narrative [facility] ([place]) - 07/14/2025 11:02 PM CDT If patient unable to urinate, straight cath us Trip Ley MD LAB MICROBIOLOGY - GENE RAL ORDERABLES Final Result Performing Organization Address City/[facility]/ZIP Co de Phone Number VIKKI [facility] ([place]) 1 [facility] [employer] [place] [address] * (ABNORMAL) Urinalysis, microscopic only (07/14/2025 10:44 PM CDT) WBC, ur 21-50(A) 0 - 5 /HPF RBC, ur 3-5(A) 0 - 2 /HPF [facility] ([place]) Epithelial cells, squamous, ur 1-5 0 - 5 /HPF [facility] ([place]) Bacteria, ur Trace(A) [facility] ([place]) Culture Reflex Comment Reflex to urine culture will be performed. [facility] ([place]) Urine 07/14/2025 10:4 4 PM CDT 07/14/2025 10:56 PM CDT us Sky Monroe MD LAB URINE ORDERABLES Final Result Performing Organization Address City/[facility]/ZIP Co de Phone Number VIKKI [facility] ([place]) 1 [facility] [place] [address] * Urine culture Urine (07/14/2025 10:44 PM CDT) Report Final Report: Less than 100,000 colonies/mL (clinically insignificant growth based on current clinical standards) Comment:Testing performed by : [facility], [address] [place]., [address] Organism (CLINICALLY INSIGNIFICANT GROWTH [facility]E [facility] ([place]) Urine 07/14/2025 10:4 4 PM CDT 07/15/2025 2:11 AM CDT Narrative [facility] ([place]) - 07/16/2025 3:13 AM CDT Urine culture reflexed based upon urinalysis results. Testing performed by [facility] Microbiology Laboratory ([phone]) us Sky Monroe MD LAB MICROBIOLOGY - GENERAL ORDERABLES Final Result Performing Organization Address City/[facility]/ZIP Co de Phone Number VIKKI [facility] ([place]) 1 [facility] [place] [place] [address] * (ABNORMAL) POCT glucose (07/14/2025 8:00 PM CDT) Glucose, POC 238(H) 70 - 199 mg/dL Blood 07/14/2025 8:00 PM CDT 07/14/2025 8:00 PM CDT Miranda Chambers MD LAB POCT ORDERABLES - DEVICE Final Result VIKKI [facility] ([place]) 1 [facility] [place] [place] [address] * POCT glucose (07/14/2025 6:16 PM CDT) Glucose, POC 196 70 - 199 mg/dL Blood 07/14/2025 6:16 PM CDT 07/14/2025 6:16 PM CDT Miranda Chambers MD LAB POCT ORDERABLES - DEVICE Final Result [facility] [place] 1 [facility] [place] [address] * CT Abdomen Pelvis W Contrast (07/14/2025 4:14 PM CDT) Anatomical Region Laterality Modality Body N/A Computed Tomogra phy 07/14/2025 4:18 PM CDT Narrative 07/14/2025 4:30 PM CDT EXAM DESCRIPTION: CT ABDOMEN PELVIS W CONTRAST REASON FOR STUDY: Pain, significant erythema to right lower quadrant after recent necrotizing fasciitis infection Complaint of redness and pain above previous surgical site, RLQ. States she has had several surgeries on her abd that had necrotizing fascitis. TECHNIQUE: CT scan of the abdomen and pelvis performed with intravenous and without oral contrast using helical scanning technique with dynamic intravenous contrast injection. Reconstructed coronal and sagittal MPR images reviewed. All images stored on PACS. Automated exposure control was used as a dose optimization technique for this examination. CONTRAST TYPE/DOSE: 100mL of IOVERSOL 350 MG IODINE/ML INTRAVENOUS SYRINGE injected via intravenous COMPARISON: CT pelvis 06/07/2025 FINDINGS: LOWER CHEST: No significant pulmonary abnormalities. No effusion. LIVER: Normal size. No identified cystic or solid masses. GALLBLADDER: Cholelithiasis. No gallbladder wall thickening or surrounding inflammatory stranding. BILE DUCTS: No intrahepatic or extrahepatic ductal dilatation. SPLEEN: Normal size. No focal lesions. PANCREAS: No identified cystic or solid masses. No significant calcifications. No adjacent inflammation or peripancreatic fluid collections. Pancreatic duct not dilated. ADRENALS: Normal. KIDNEYS/URINARY TRACT: No identified significant cystic or solid masses. No visualized stones. No hydronephrosis or hydroureter. Symmetric enhancement. Urinary bladder is unremarkable. GI: No dilated bowel loops. No obvious wall thickening. No evidence of acute appendicitis. No significant diverticular disease. PERITONEUM: No ascites or free air. RETROPERITONEUM: No mass or adenopathy. REPRODUCTIVE: No significant abnormality. VASCULATURE: No abdominal aortic aneurysm. MUSCULOSKELETAL: No significant abnormality. OTHER: Subcutaneous edema in the right groin region. A few foci of gas within the right labial region. No organized fluid collection. IMPRESSION: 1. Subcutaneous edema in the right groin region. A few foci of gas within the right labial region. No organized fluid collection. 2. Cholelithiasis. THIS IS AN ELECTRONICALLY VERIFIED FINAL REPORT 07/14/2025 4:30 PM - Electronically signed by Zan Julian M.D. KR: KR Report ID: [id number] Reading Location: [id number] Procedure Note Zan Julian MD - 07/14/2025 EXAM DESCRIPTION: CT ABDOMEN PELVIS W CONTRAST REASON FOR STUDY: Pain, significant erythema to right lower quadrantafter recent necrotizing fasciitis infection Complaint of redness and pain above previous surgical site, RLQ. Mell has had several surgeries on her abd that had necrotizing fascitis. TECHNIQUE: CT scan of the abdomen and pelvis performed with intravenousand without oral contrast using helical scanning technique with dynamic intravenous contrast injection. Reconstructed coronal and sagittal MPRimages reviewed. All images stored on PACS. Automated exposure control was usedas a dose optimization technique for this examination. CONTRAST TYPE/DOSE: 100mL of IOVERSOL 350 MG IODINE/ML INTRAVENOUSSYRINGE injected via intravenous COMPARISON: CT pelvis 06/07/2025 FINDINGS: LOWER CHEST: No significant pulmonary abnormalities. No effusion. LIVER: Normal size. No identified cystic or solid masses. GALLBLADDER: Cholelithiasis. No gallbladder wall thickening orsurrounding inflammatory stranding. BILE DUCTS: No intrahepatic or extrahepatic ductal dilatation. SPLEEN: Normal size. No focal lesions. PANCREAS: No identified cystic or solid masses. No significant calcifications. No adjacent inflammation or peripancreatic fluidcollections. Pancreatic duct not dilated. ADRENALS: Normal. KIDNEYS/URINARY TRACT: No identified significant cystic or solid masses.No visualized stones. No hydronephrosis or hydroureter. Symmetricenhancement. Urinary bladder is unremarkable. GI: No dilated bowel loops. No obvious wall thickening. No evidence of acute appendicitis. No significant diverticular disease. PERITONEUM: No ascites or free air. RETROPERITONEUM: No mass or adenopathy. REPRODUCTIVE: No significant abnormality. VASCULATURE: No abdominal aortic aneurysm. MUSCULOSKELETAL: No significant abnormality. OTHER: Subcutaneous edema in the right groin region. A few foci of gas within the right labial region. No organized fluid collection. IMPRESSION: 1. Subcutaneous edema in the right groin region. A few foci of gaswithin the right labial region. No organized fluid collection. 2. Cholelithiasis. THIS IS AN ELECTRONICALLY VERIFIED FINAL REPORT 07/14/2025 4:30 PM - Electronically signed by Zan Julian M.D. 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 States she has had several surgeries on her abd that had necrotizing fascitis. Pain is R lower abd. TECHNIQUE: Single radiographic view(s) of the chest. COMPARISON: No prior. FINDINGS: LUNGS: Minimal prominence of vascularity. No confluent infiltrate or effusion. Minimal haziness of the lungs favors prominent overlapping soft tissues and portable technique. Mild edema possible. HEART/MEDIASTINUM: Prominent cardiomegaly. LINES/TUBES: None. BONES: No acute osseous abnormality. IMPRESSION: There is prominent cardiomegaly and mild prominence of vascularity. THIS IS AN ELECTRONICALLY VERIFIED FINAL REPORT 07/14/2025 4:09 PM - Electronically signed by Evert Manley M.D. 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 States she has had several surgeries on herabd that had necrotizing fascitis. Pain is R lower abd. TECHNIQUE: Single radiographic view(s) of the chest. COMPARISON: No prior. FINDINGS: LUNGS: Minimal prominence of vascularity. No confluent infiltrate or effusion. Minimal haziness of the lungs favors prominent overlappingsoft tissues and portable technique. Mild edema possible. HEART/MEDIASTINUM: Prominent cardiomegaly. LINES/TUBES: None. BONES: No acute osseous abnormality. IMPRESSION: There is prominent cardiomegaly and mild prominence of vascularity. THIS IS AN ELECTRONICALLY VERIFIED FINAL REPORT 07/14/2025 4:09 PM - Electronically signed by Evert Manley M.D. MJ: BRAYAN Report ID: [id number] Reading Location: [place] [address] Sky Monroe MD IMG XR PROCEDURES Final Res ult * Blood culture Blood Peripheral (07/14/2025 2:51 PM CDT) Report Final Report: No growth Comment:Testing performed by : [facility], [address] [facility], [place]., [address] Blood (Peripheral) 07/14/2025 2:51 PM CDT 07/14/2025 6:08 PM CDT Narrative [facility] ([place]) - 07/19/2025 7:00 AM CDT From a different site than #1. Draw Blood cultures before administration of Antibiotics Collection->Peripheral 1. Blood cultures are incubated for 4 days on a continuously monitored blood culture system. The first report of a negative culture is issued within 24 hours of receipt of the specimen in the laboratory. 2. Positive culture results are reported as soon as they are detected. 3. The most important factor for detection of microbes in the setting of bloodstream infection is the volume of blood submitted for culture. Failure to collect an optimal blood volume can result in false negative blood cultures. 4. For pediatric patients, the recommended blood volume to collect follows a weight based strategy. See the electronic test catalog for collection instructions. 5. For positive blood cultures, a rapid molecular test may be performed for organism identification using the adelso ePlex blood culture identification panel for gram positive (BCID-GP) and gram negative (BCID-GN) organisms. This nucleic acid amplification test detects microbial DNA in positive blood culture broth. This assay has been cleared by the [place] Food and Drug Administration and its performance characteristics have been verified by the [facility] Microbiology Laboratory. For questions about this culture, contact the Microbiology Laboratory at [phone]. Interpretive data was last revised on 24. Ashley SCOTT LAB MICROBIOLOGY - GENERAL PEDRO [place] Final Result VIKKI [facility] ([place]) 1 [facility] [place] [address] * Blood culture Blood Peripheral (07/14/2025 2:51 PM CDT) Report Final Report: No growth Comment:Testing performed by : [facility], [address] [facility], [place]., [address] Blood (Peripheral) 07/14/2025 2:51 PM CDT 07/14/2025 6:08 PM CDT Narrative VIKKI [facility] ([place]) - 07/19/2025 7:00 AM CDT Draw Blood cultures before administration of Antibiotics Collection->Peripheral 1. Blood cultures are incubated for 4 days on a continuously monitored blood culture system. The first report of a negative culture is issued within 24 hours of receipt of the specimen in the laboratory. 2. Positive culture results are reported as soon as they are detected. 3. The most important factor for detection of microbes in the setting of bloodstream infection is the volume of blood submitted for culture. Failure to collect an optimal blood volume can result in false negative blood cultures. 4. For pediatric patients, the recommended blood volume to collect follows a weight based strategy. See the electronic test catalog for collection instructions. 5. For positive blood cultures, a rapid molecular test may be performed for organism identification using the adelso ePlex blood culture identification panel for gram positive (BCID-GP) and gram negative (BCID-GN) organisms. This nucleic acid amplification test detects microbial DNA in positive blood culture broth. This assay has been cleared by the [place] Food and Drug Administration and its performance characteristics have been verified by the [facility]. For questions about this culture, contact the Microbiology Laboratory at [phone]. Interpretive data was last revised on 24. Ashley SCOTT LAB MICROBIOLOGY - GENERAL PEDRO [place] Final Result VIKKI [facility] [place]) 1 [facility] [place] [place] [address] * Sepsis Lactate w/ Reflex (07/14/2025 2:26 PM CDT) Pathologist [facility] Sepsis Lactate 1.7 0.7 - 2.0 mmol/L Blood 07/14/2025 2:26 PM CDT 07/14/2025 2:30 PM CDT Miranda Chambers MD LAB BLOOD ORDERABLES Final Result VIKKI [facility] ([place]) 1 [facility] [place] [place] [address] * eGFR (07/14/2025 2:26 PM CDT) eGFR >90 >=60 mL/min/1. 73 m2 Comment: Interpretive Data Reference Interval Normal >/= 90 mL/min/1.73m2 Mildly decreased* 60 - 89 mL/min/1.73m2 Mildly to moderately decreased 45 - 59 mL/min/1.73m2 Moderately to severely decreased 30 - 44 mL/min/1.73m2 Severely decreased 15 - 29 mL/min/1.73m2 Kidney Failure < 15 mL/min/1.73m2 *Relative to young adult level Estimated glomerular filtration rate is determined by the 2020 CKD-EPI equation recommended by the National Kidney Foundation (A Unifying Approach to GFR Estimation: Recommendations of the NKF-ASK Task Force on Reassessing the Inclusion of Race in Diagnosing Kidney Disease, YAMILASN 2020). The CKD-EPI equation should not be used for patients with unstable renal function and has not been validated in children and those over 70. Current interpretive data was last reviewed 2021. Blood 07/14/2025 2:26 PM CDT 07/14/2025 2:30 PM CDT Miranda Chambers MD LAB BLOOD ORDERABLES Final Result [facility] ([place]) 1 [facility] [place] [address] * (ABNORMAL) Differential, auto (07/14/2025 2:26 PM CDT) Neutrophil abs 16.83(H) 1.50 - 6.50 K/cumm Imm gran abs 0.08 0.00 - 0.10 K/cumm [facility] ([place]) Lymphocyte abs 1.69 0.80 - 3.30 K/cumm [facility] ([place]) Monocyte abs 1.02(H) 0.20 - 0.80 K/cumm [facility] ([place]) Eosinophil abs 0.04 0.00 - 0.50 K/cumm [facility] ([place]) Basophil abs 0.05 0.00 - 0.10 K/cumm [facility] ([place]) Neutrophil pct 85.3 % [facility] ([place]) Comment: Interpretive Data Percent cell count reference ranges are not reported, since discordance with absolute values may lead to misinterpretation of CBC data. Current Interpretive Data was last revised on 2018. Imm gran pct 0.4 % [facility] ([place]) Comment: Interpretive Data Percent cell count reference ranges are not reported, since discordance with absolute values may lead to misinterpretation of CBC data. Current Interpretive Data was last revised on 2018. Lymphocyte pct 8.6 % [facility] ([place]) Comment: Interpretive Data Percent cell count reference ranges are not reported, since discordance with absolute values may lead to misinterpretation of CBC data. Current Interpretive Data was last revised on 2018. Monocyte pct 5.2 % [facility] ([place]) Comment: Interpretive Data Percent cell count reference ranges are not reported, since discordance with absolute values may lead to misinterpretation of CBC data. Current Interpretive Data was last revised on 2018. Eosinophil pct 0.2 % [facility] ([place]) Comment: Interpretive Data Percent cell count reference ranges are not reported, since discordance with absolute values may lead to misinterpretation of CBC data. Current Interpretive Data was last revised on 2018. Basophil pct 0.3 % [facility] ([place]) Comment: Interpretive Data Percent cell count reference ranges are not reported, since discordance with absolute values may lead to misinterpretation of CBC data. Current Interpretive Data was last revised on 2018. Blood 07/14/2025 2:26 PM CDT 07/14/2025 2:30 PM CDT us Miranda Chambers MD LAB BLOOD ORDERABLES Final Result [facility] ([place]) 1 [facility] [place] [address] * (ABNORMAL) CBC with auto differential (07/14/2025 2:26 PM CDT) WBC 19.71(H) 3.80 - 9.90 K/cumm Hgb 10.7(L) 11.9 - 15.5 g/dL [facility] ([place]) Hct 34.1(L) 35.6 - 45.5 % [facility] ([place]) Plt 510(H) 150 - 400 K/cumm [facility] ([place]) MPV 9.8 9.1 - 12.3 fL [facility] ([place]) RBC 3.87(L) 3.90 - 5.20 M/cumm [facility] ([place]) MCV 88.1 81.3 - 96.4 fL [facility] ([place]) MCH 27.6 27.1 - 33.3 pg [facility] ([place]) MCHC 31.4(L) 32.3 - 35.7 g/dL [facility] ([place]) RDW CV 15.9(H) 11.1 - 14.9 % [facility] ([place]) RDW SD 50.3(H) 35.7 - 48.1 fL [facility] ([place]) NRBC abs 0.00 0.00 - 0.01 K/cumm [facility] ([place]) Blood 07/14/2025 2:2 6 PM CDT 07/14/2025 2:30 PM CDT Miranda Chambers MD LAB BLOOD ORDERABLES Final Result [facility] ([place]) 1 [facility] [place] [address] * (ABNORMAL) Comprehensive metabolic panel (07/14/2025 2:26 PM CDT) Sodium 135 135 - 145 mmol/L [facility] ([place]) Potassium, pl 4.3 3.3 - 4.9 mmol/L [facility] ([place]) Chloride 101 97 - 110 mmol/L [facility] ([place]) CO2 19(L) 22 - 32 mmol/L [facility] ([place]) Anion gap 15 2 - 15 mmol/L [facility] ([place]) BUN 16 6 - 25 mg/dL [facility] ([place]) Creatinine 0.46(L) 0.60 - 1.10 mg/dL [facility] ([place]) Glucose 283(H) 70 - 199 mg/dL [facility] ([place]) Comment: Interpretive Data Fasting glucose >/= 126 mg/dl is diagnostic for diabetes. Fasting is defined as no caloric intake for at least 8 hours. Fasting glucose between 100 mg/dl to 125 mg/dl is diagnostic of prediabetes. In a patient with classic symptoms of hyperglycemia or hyperglycemic crisis, a random glucose >/= 200 mg/dl is diagnostic for diabetes. In the absence of unequivocal hyperglycemia, results should be confirmed by repeat testing. The classification and Diagnosis of Diabetes Diabetes Care 202; 46: S19-S40. Current interpretive data was last revised 2022. Calcium 9.3 8.5 - 10.3 mg/dL [facility] ([place]) Bilirubin, total 0.4 0.1 - 1.2 mg/dL [facility] ([place]) Protein, pl 7.0 6.5 - 8.5 g/dL [facility] ([place]) Albumin 3.6 3.5 - 5.0 g/dL [facility] ([place]) Alk phos 73 40 - 130 Units/L [facility] ([place]) ALT 18 7 - 45 Units/L [facility] ([place]) AST 18 10 - 45 Units/L [facility] ([place]) Blood 07/14/2025 2:26 PM CDT 07/14/2025 2:30 PM CDT us Miranda Chambers MD LAB BLOOD ORDERABLES Final Result Performing Organization Address City/[facility]/ZIP Co de Phone Number VIKKI [facility] ([place]) 1 [facility] [place] [address] * Apply dressing Incision Perineum Right Groin (07/03/2025 10:51 AM CDT) Narrative rBandi Stoll RN - 07/03/2025 10:51 AM CDT Lightly moistened kerlix WTD, cover with abd pad and tape in place with medipore tape Wound care performed per order. us Madeleine Ryan DO NURSING WOUND CARE Final Result * POCT glucose (06/22/2025 12:19 PM CDT) Glucose, POC 149 70 - 199 mg/dL Blood 06/22/2025 12:1 9 PM CDT 06/22/2025 12:19 PM CDT us Dari Bojorquez MD LAB POCT ORDERABLES - DEVICE Final Result [facility] Department [place] [address] * POCT glucose (06/22/2025 6:58 AM CDT) Glucose, POC 121 70 - 199 mg/dL Blood 06/22/2025 6:58 AM CDT 06/22/2025 6:58 AM CDT Dari Bojorquez MD LAB POCT ORDERABLES - DEVICE Final Result Performing Organization Address [facility] Co de Phone Number [facility] [place] [address] * POCT glucose (06/22/2025 2:40 AM CDT) Glucose, POC 81 70 - 199 mg/dL Blood 06/22/2025 2:40 AM CDT 06/22/2025 2:40 AM CDT Dari Bojorquez MD LAB POCT ORDERABLES - DEVICE Final Result Performing Organization Address [facility] Co de Phone Number [facility] [place] [address] * POCT glucose (06/21/2025 8:16 PM CDT) Glucose, POC 156 70 - 199 mg/dL Blood 06/21/2025 8:16 PM CDT 06/21/2025 8:16 PM CDT Dari Bojorquez MD LAB POCT ORDERABLES - DEVICE Final Result Performing Organization Address [facility] Co de Phone Number [facility] [place] [address] * POCT glucose (06/21/2025 5:59 PM CDT) Glucose, POC 111 70 - 199 mg/dL Comment:Glu2: RN/ Notified Glucose comment 1 Glu2: RN/ Notified [facility] Blood 06/21/2025 5:59 PM CDT 06/21/2025 5:59 PM CDT us Dari Bojorquez MD LAB POCT ORDERABLES - DEVICE Final Result Performing Organization Address [facility] de Phone Number [facility] [place] [address] * POCT glucose (06/21/2025 11:57 AM CDT) Glucose, POC 134 70 - 199 mg/dL Blood 06/21/2025 11:5 7 AM CDT 06/21/2025 11:57 AM CDT us Dari Bojorquez MD LAB POCT ORDERABLES - DEVICE Final Result Performing Organization Address [facility] de Phone Number [facility] [place] [address] * POCT glucose (06/21/2025 7:48 AM CDT) Glucose, POC 126 70 - 199 mg/dL Blood 06/21/2025 7:48 AM CDT 06/21/2025 7:48 AM CDT us Dari Bojorquez MD LAB POCT ORDERABLES - DEVICE Final Result Performing Organization Address [facility] de Phone Number [facility] [place] [address] * POCT glucose (06/21/2025 6:07 AM CDT) Glucose, POC 104 70 - 199 mg/dL Blood 06/21/2025 6:07 AM CDT 06/21/2025 6:07 AM CDT Dari Bojorquez MD LAB POCT ORDERABLES - DEVICE Final Result Performing Organization Address City/[facility] Co de Phone Number [facility] [place] [address] * POCT glucose (06/21/2025 1:41 AM CDT) Glucose, POC 197 70 - 199 mg/dL Blood 06/21/2025 1:41 AM CDT 06/21/2025 1:41 AM CDT us Dari Bojorquez MD LAB POCT ORDERABLES - DEVICE Final Result Performing Organization Address [facility] [place] [address] * POCT glucose (06/20/2025 9:11 PM CDT) Glucose, POC 130 70 - 199 mg/dL Blood 06/20/2025 9:11 PM CDT 06/20/2025 9:11 PM CDT Dari Bojorquez MD LAB POCT ORDERABLES - DEVICE Final Result Performing Organization Address [facility]/ZIP Co de Phone Number [facility] [place] [address] * POCT glucose (06/20/2025 5:13 PM CDT) Glucose, POC 99 70 - 199 mg/dL Blood 06/20/2025 5:13 PM CDT 06/20/2025 5:13 PM CDT Dari Bojorquez MD LAB POCT ORDERABLES - DEVICE Final Result Performing Organization Address City/[facility]/ZIP Co de Phone Number [facility] [place] [address] * (ABNORMAL) POCT glucose (06/20/2025 12:25 PM CDT) Glucose, POC 205(H) 70 - 199 mg/dL Blood 06/20/2025 12:2 5 PM CDT 06/20/2025 12:25 PM CDT Dari Bojorquez MD LAB POCT ORDERABLES - DEVICE Final Result Performing Organization Address City/[facility] Co de Phone Number [facility] [place] [address] * POCT glucose (06/20/2025 8:39 AM CDT) Glucose, POC 134 70 - 199 mg/dL Blood 06/20/2025 8:39 AM CDT 06/20/2025 8:39 AM CDT Dari Bojorquez MD LAB POCT ORDERABLES - DEVICE Final Result Performing Organization Address [facility] de Phone Number [facility] [place] [address] * POCT glucose (06/20/2025 1:46 AM CDT) Glucose, POC 120 70 - 199 mg/dL Blood 06/20/2025 1:46 AM CDT 06/20/2025 1:46 AM CDT Dari Bojorquez MD LAB POCT ORDERABLES - DEVICE Final Result Performing Organization Address [facility] de Phone Number [id number] [place] [address] * Infection Prevention Nikhil auris PCR, surveillance Axilla/Groin (06/20/2025 12:31 AM CDT) Nikhil auris DNA Not Detected Not Detected [facility] Comment: Interpretive Data Testing performed by [facility] using the Daisy adelso 6800 Nikhil auris assay. This assay detects DNA from Nikhil auris using Real-Time PCR. This assay is laboratory developed and is not cleared by the [place] Food and Drug Administration. The performance characteristics have been verified by the [facility]. Axilla/Groin 06/20/2025 12:3 1 AM CDT 06/20/2025 12:52 AM CDT Narrative [facility] - 06/20/2025 2:26 PM CDT Order placed by [facility] due to ring surveillance. us Instant Order Generic Provider LAB MICROBIOLOGY - GENERAL ORDERABLES Final Result [facility] Department [place] [address] [facility] * eGFR (06/19/2025 10:31 PM CDT) eGFR 83 >=60 mL/min/1. 73 m2 Comment: Interpretive Data Reference Interval Normal >/= 90 mL/min/1.73m2 Mildly decreased* 60 - 89 mL/min/1.73m2 Mildly to moderately decreased 45 - 59 mL/min/1.73m2 Moderately to severely decreased 30 - 44 mL/min/1.73m2 Severely decreased 15 - 29 mL/min/1.73m2 Kidney Failure < 15 mL/min/1.73m2 *Relative to young adult level Estimated glomerular filtration rate is determined by the 2020 CKD-EPI equation recommended by the National Kidney Foundation (A Unifying Approach to GFR Estimation: Recommendations of the NKF-ASK Task Force on Reassessing the Inclusion of Race in Diagnosing Kidney Disease, JASN 202). The CKD-EPI equation should not be used for patients with unstable renal function and has not been validated in children and those over 70. Current interpretive data was last reviewed 2021. Blood 06/19/2025 10:3 1 PM CDT 06/19/2025 11:00 PM CDT Kelly SCOTT LAB BLOOD ORDERABLES Fin al Result [facility] Department [place] [address] * (ABNORMAL) Manual Differential (06/19/2025 10:31 PM CDT) Differential Manual Cells [facility]ed [facility] Neutrophil abs 5.99 1.50 - 6.50 K/cumm [facility] Lymphocyte abs 4.70(H) 0.80 - 3.30 K/cumm [facility] Monocyte abs 0.58 0.20 - 0.80 K/cumm [facility] Eosinophil abs 0.29 0.00 - 0.50 K/cumm [facility] Basophil abs 0.09 0.00 - 0.10 K/cumm [facility] Neutrophil pct 51.4 % [facility] Comment: Interpretive Data Percent cell count reference ranges are not reported, since discordance with absolute values may lead to misinterpretation of CBC data. Current Interpretive Data was last revised on 2018. Lymphocyte pct 40.3 % [facility] Comment: Interpretive Data Percent cell count reference ranges are not reported, since discordance with absolute values may lead to misinterpretation of CBC data. Current Interpretive Data was last revised on 2018. Monocyte pct 5.0 % [facility] Comment: Interpretive Data Percent cell count reference ranges are not reported, since discordance with absolute values may lead to misinterpretation of CBC data. Current Interpretive Data was last revised on 2018. Eosinophil pct 2.5 % [facility] Comment: Interpretive Data Percent cell count reference ranges are not reported, since discordance with absolute values may lead to misinterpretation of CBC data. Current Interpretive Data was last revised on 2018. Basophil pct 0.8 % [facility] Comment: Interpretive Data Percent cell count reference ranges are not reported, since discordance with absolute values may lead to misinterpretation of CBC data. Current Interpretive Data was last revised on 2018. Blood 06/19/2025 10:3 1 PM CDT 06/19/2025 11:03 PM CDT Kelly SCOTT LAB BLOOD ORDERABLES Fin al Result [facility] Department [place] [address] * (ABNORMAL) CBC without differential (06/19/2025 10:31 PM CDT) WBC 11.66(H) 3.80 - 9.90 K/cumm Hgb 12.3 11.9 - 15.5 g/dL [facility] Hct 38.5 35.6 - 45.5 % [facility] Plt 349 150 - 400 K/cumm [facility] MPV 9.2 9.1 - 12.3 fL [facility] RBC 4.30 3.90 - 5.20 M/cumm [facility] MCV 89.5 81.3 - 96.4 fL [facility] MCH 28.6 27.1 - 33.3 pg [facility] MCHC 31.9(L) 32.3 - 35.7 g/dL [facility] RDW CV 17.6(H) 11.1 - 14.9 % [facility] RDW SD 48.2(H) 35.7 - 48.1 fL [facility] NRBC abs 0.03(H) 0.00 - 0.01 K/cumm [facility] Morphologic Screen Results confirmed by manual morphology review. [facility] Blood 06/19/2025 10:3 1 PM CDT 06/19/2025 11:00 PM CDT Kelly SCOTT LAB BLOOD ORDERABLES Parmjit dianne Result - Final [facility] Department [place] [address] * Prealbumin (06/19/2025 10:31 PM CDT) Prealbumin 28.0 20.0 - 40.0 mg/dL Comment: Repeated and Verified Telephone report made to: Lona Vasquez RN on 06/20/2025 17:40:23 CDT by [facility] . Blood 06/19/2025 10:3 1 PM CDT 06/19/2025 11:00 PM CDT Jovita Mo CLINICAL SCIENTIST LAB BLOOD ORDERABLES Edite d Result - Final Performing Organization Address City/[facility]/ZIP Co de Phone Number [facility] Department [place] [address] * Phosphorus (06/19/2025 10:31 PM CDT) Pathologist [facility] Phosphorus, pl 4.5 2.3 - 4.5 mg/dL Blood 06/19/2025 10:3 1 PM CDT 06/19/2025 11:00 PM CDT Kelly No PA LAB BLOOD ORDERABLES Fin al Result Performing Organization Address [facility] Co de Phone Number [facility] Department [place] [address] * (ABNORMAL) Albumin (06/19/2025 10:31 PM CDT) [facility] Albumin 3.1(L) 3.5 - 5.0 g/dL Blood 06/19/2025 10:3 1 PM CDT 06/19/2025 11:00 PM CDT Jovita Mo CLINICAL SCIENTIST LAB BLOOD ORDERABLES Final Result Performing Organization Address [facility] Co de Phone Number [facility] Department [place] [address] * Basic metabolic panel (06/19/2025 10:31 PM CDT) Sodium 141 135 - 145 mmol/L Potassium, pl 4.5 3.3 - 4.9 mmol/L [facility] Chloride 105 97 - 110 mmol/L [facility] CO2 28 22 - 32 mmol/L [facility] Anion gap 8 2 - 15 mmol/L [facility] BUN 18 6 - 25 mg/dL [facility] Creatinine 0.87 0.60 - 1.10 mg/dL [facility] Glucose 118 70 - 199 mg/dL [facility] Comment: Interpretive Data Fasting glucose >/= 126 mg/dl is diagnostic for diabetes. Fasting is defined as no caloric intake for at least 8 hours. Fasting glucose between 100 mg/dl to 125 mg/dl is diagnostic of prediabetes. In a patient with classic symptoms of hyperglycemia or hyperglycemic crisis, a random glucose >/= 200 mg/dl is diagnostic for diabetes. In the absence of unequivocal hyperglycemia, results should be confirmed by repeat testing. The classification and Diagnosis of Diabetes Diabetes Care 2021; 46: S19-S40. Current interpretive data was last revised 2022. Calcium 8.7 8.5 - 10.3 mg/dL [facility] Blood 06/19/2025 10:3 1 PM CDT 06/19/2025 11:00 PM CDT us Kelly SCOTT LAB BLOOD ORDERABLES Fin al Result Performing Organization Address City/[facility]/ZIP Co de Phone Number [facility] Department [place] [place] [address] * POCT glucose (06/19/2025 8:13 PM CDT) [facility] Signature Glucose, POC 121 70 - 199 mg/dL Blood 06/19/2025 8:13 PM CDT 06/19/2025 8:13 PM CDT us Dari Bojorquez MD LAB POCT ORDERABLES - DEVICE Final Result Performing Organization Address [facility] Co de Phone Number [facility] Department [place] [address] * POCT glucose (06/19/2025 5:10 PM CDT) Glucose, POC 132 70 - 199 mg/dL Blood 06/19/2025 5:10 PM CDT 06/19/2025 5:10 PM CDT Dari Bojorquez MD LAB POCT ORDERABLES - DEVICE Final Result Performing Organization Address City/[facility]/ZIP Co de Phone Number [facility] [place] [address] * POCT glucose (06/19/2025 12:10 PM CDT) Glucose, POC 150 70 - 199 mg/dL Blood 06/19/2025 12:1 0 PM CDT 06/19/2025 12:10 PM CDT Dari Bojorquez MD LAB POCT ORDERABLES - DEVICE Final Result Performing Organization Address City/[facility] Co de Phone Number [facility] [place] [address] * POCT glucose (06/19/2025 8:54 AM CDT) Glucose, POC 145 70 - 199 mg/dL Blood 06/19/2025 8:54 AM CDT 06/19/2025 8:54 AM CDT Dari Bojorquez MD LAB POCT ORDERABLES - DEVICE Final Result Performing Organization Address [facility] Co de Phone Number [facility] [place] [address] * POCT glucose (06/19/2025 12:47 AM CDT) Glucose, POC 104 70 - 199 mg/dL Blood 06/19/2025 12:4 7 AM CDT 06/19/2025 12:47 AM CDT us Dari Bojorquez MD LAB POCT ORDERABLES - DEVICE Final Result Performing Organization Address [facility] Co de Phone Number [facility] Department [place] [address] * eGFR (06/18/2025 9:47 PM CDT) eGFR >90 >=60 mL/min/1. 73 m2 Comment: Interpretive Data Reference Interval Normal >/= 90 mL/min/1.73m2 Mildly decreased* 60 - 89 mL/min/1.73m2 Mildly to moderately decreased 45 - 59 mL/min/1.73m2 Moderately to severely decreased 30 - 44 mL/min/1.73m2 Severely decreased 15 - 29 mL/min/1.73m2 Kidney Failure < 15 mL/min/1.73m2 *Relative to young adult level Estimated glomerular filtration rate is determined by the 2020 CKD-EPI equation recommended by the National Kidney Foundation (A Unifying Approach to GFR Estimation: Recommendations of the NKF-ASK Task Force on Reassessing the Inclusion of Race in Diagnosing Kidney Disease, JASN 2020). The CKD-EPI equation should not be used for patients with unstable renal function and has not been validated in children and those over 70. Current interpretive data was last reviewed 2021. Blood 06/18/2025 9:47 PM CDT 06/18/2025 10:06 PM CDT us Kelly SCOTT LAB BLOOD ORDERABLES Fin al Result Performing Organization Address City/[facility]/ZIP Co de Phone Number [facility] Department [place] [address] * (ABNORMAL) CBC without differential (06/18/2025 9:47 PM CDT) WBC 16.03(H) 3.80 - 9.90 K/cumm Hgb 9.4(L) 11.9 - 15.5 g/dL [facility] Hct 29.4(L) 35.6 - 45.5 % [facility] Plt 725(H) 150 - 400 K/cumm [facility] MPV 9.0(L) 9.1 - 12.3 fL [facility] RBC 3.29(L) 3.90 - 5.20 M/cumm [facility] MCV 89.4 81.3 - 96.4 fL [facility] MCH 28.6 27.1 - 33.3 pg [facility] MCHC 32.0(L) 32.3 - 35.7 g/dL [facility] RDW CV 17.0(H) 11.1 - 14.9 % [facility] RDW SD 46.6 35.7 - 48.1 fL [facility] NRBC abs 0.14(H) 0.00 - 0.01 K/cumm [facility] Blood 06/18/2025 9:47 PM CDT 06/18/2025 10:04 PM CDT Kelly SCOTT LAB BLOOD ORDERABLES Fin al Result [facility] [place] [address] * Phosphorus (06/18/2025 9:47 PM CDT) Pathologist [facility] Phosphorus, pl 4.4 2.3 - 4.5 mg/dL Blood 06/18/2025 9:47 PM CDT 06/18/2025 10:06 PM CDT Kelly SCOTT LAB BLOOD ORDERABLES Fin al Result [facility] [place] [address] * Basic metabolic panel (06/18/2025 9:47 PM CDT) Sodium 141 135 - 145 mmol/L Potassium, pl 4.9 3.3 - 4.9 mmol/L [facility] Chloride 104 97 - 110 mmol/L [facility] CO2 26 22 - 32 mmol/L [facility] Anion gap 11 2 - 15 mmol/L [facility] BUN 19 6 - 25 mg/dL [facility] Creatinine 0.60 0.60 - 1.10 mg/dL [facility] Glucose 94 70 - 199 mg/dL [facility] Comment: Interpretive Data Fasting glucose >/= 126 mg/dl is diagnostic for diabetes. Fasting is defined as no caloric intake for at least 8 hours. Fasting glucose between 100 mg/dl to 125 mg/dl is diagnostic of prediabetes. In a patient with classic symptoms of hyperglycemia or hyperglycemic crisis, a random glucose >/= 200 mg/dl is diagnostic for diabetes. In the absence of unequivocal hyperglycemia, results should be confirmed by repeat testing. The classification and Diagnosis of Diabetes Diabetes Care 202; 46: S19-S40. Current interpretive data was last revised 2022. Calcium 8.9 8.5 - 10.3 mg/dL [facility] Blood 06/18/2025 9:47 PM CDT 06/18/2025 10:06 PM CDT us Kelly SCOTT LAB BLOOD ORDERABLES Fin al Result Performing Organization Address City/[facility]/ZIP Co de Phone Number [facility] Department [place] [address] * POCT glucose (06/18/2025 7:50 PM CDT) [facility] Signature Glucose, POC 172 70 - 199 mg/dL Blood 06/18/2025 7:50 PM CDT 06/18/2025 7:50 PM CDT us Dari Bojorquez MD LAB POCT ORDERABLES - DEVICE Final Result Performing Organization Address [facility] Co de Phone Number [facility] Department [place] [address] * POCT glucose (06/18/2025 4:44 PM CDT) Glucose, POC 186 70 - 199 mg/dL Blood 06/18/2025 4:44 PM CDT 06/18/2025 4:44 PM CDT Dari Bojorquez MD LAB POCT ORDERABLES - DEVICE Final Result Performing Organization Address City/[facility] Co de Phone Number [facility] [place] [address] * POCT glucose (06/18/2025 11:44 AM CDT) Glucose, POC 145 70 - 199 mg/dL Blood 06/18/2025 11:4 4 AM CDT 06/18/2025 11:44 AM CDT Dari Bojorquez MD LAB POCT ORDERABLES - DEVICE Final Result Performing Organization Address [facility] Co de Phone Number [facility] [place] [address] * POCT glucose (06/18/2025 8:00 AM CDT) Glucose, POC 136 70 - 199 mg/dL Blood 06/18/2025 8:00 AM CDT 06/18/2025 8:00 AM CDT Dari Bojorquez MD LAB POCT ORDERABLES - DEVICE Final Result Performing Organization Address City/[facility] Co de Phone Number [facility] [place] [address] * POCT glucose (06/18/2025 2:19 AM CDT) Glucose, POC 93 70 - 199 mg/dL Blood 06/18/2025 2:19 AM CDT 06/18/2025 2:19 AM CDT Dari Bojorquez MD LAB POCT ORDERABLES - DEVICE Final Result Performing Organization Address City/State/[facility] Co de Phone Number [facility] [place] [address] * POCT glucose (06/17/2025 8:06 PM CDT) Glucose, POC 196 70 - 199 mg/dL Blood 06/17/2025 8:06 PM CDT 06/17/2025 8:06 PM CDT Dari Bojorquez MD LAB POCT ORDERABLES - DEVICE Final Result Performing Organization Address [facility] de Phone Number [facility] [place] [address] * eGFR (06/17/2025 7:36 PM CDT) eGFR >90 >=60 mL/min/1. 73 m2 Comment: Interpretive Data Reference Interval Normal >/= 90 mL/min/1.73m2 Mildly decreased* 60 - 89 mL/min/1.73m2 Mildly to moderately decreased 45 - 59 mL/min/1.73m2 Moderately to severely decreased 30 - 44 mL/min/1.73m2 Severely decreased 15 - 29 mL/min/1.73m2 Kidney Failure < 15 mL/min/1.73m2 *Relative to young adult level Estimated glomerular filtration rate is determined by the 2020 CKD-EPI equation recommended by the National Kidney Foundation (A Unifying Approach to GFR Estimation: Recommendations of the NKF-ASK Task Force on Reassessing the Inclusion of Race in Diagnosing Kidney Disease, JASN 2020). The CKD-EPI equation should not be used for patients with unstable renal function and has not been validated in children and those over 70. Current interpretive data was last reviewed 2021. Blood 06/17/2025 7:36 PM CDT 06/17/2025 9:27 PM CDT Kelly SCOTT LAB BLOOD ORDERABLES Fin al Result Performing Organization Address [facility] Co de Phone Number [facility] Department [place] [address] * (ABNORMAL) CBC without differential (06/17/2025 7:36 PM CDT) WBC 17.70(H) 3.80 - 9.90 K/cumm Hgb 9.0(L) 11.9 - 15.5 g/dL [facility] Hct 28.8(L) 35.6 - 45.5 % [facility] Plt 752(H) 150 - 400 K/cumm [facility] MPV 9.1 9.1 - 12.3 fL [facility] RBC 3.18(L) 3.90 - 5.20 M/cumm [facility] MCV 90.6 81.3 - 96.4 fL [facility] MCH 28.3 27.1 - 33.3 pg [facility] MCHC 31.3(L) 32.3 - 35.7 g/dL [facility] RDW CV 16.2(H) 11.1 - 14.9 % [facility] RDW SD 46.5 35.7 - 48.1 fL [facility] NRBC abs 0.10(H) 0.00 - 0.01 K/cumm [facility] Blood 06/17/2025 7:36 PM CDT 06/17/2025 9:28 PM CDT Kelly SCOTT LAB BLOOD ORDERABLES Fin al Result Performing Organization Address [facility] Co de Phone Number [facility] Department [place] [address] * Phosphorus (06/17/2025 7:36 PM CDT) Pathologist [facility] Phosphorus, pl 4.5 2.3 - 4.5 mg/dL Blood 06/17/2025 7:36 PM CDT 06/17/2025 9:27 PM CDT Kelly SCOTT LAB BLOOD ORDERABLES Fin al Result Performing Organization Address [facility] de Phone Number [facility] [place] [address] * Magnesium (06/17/2025 7:36 PM CDT) Pathologist [facility] Magnesium 1.6 1.4 - 2.5 mg/dL Blood 06/17/2025 7:36 PM CDT 06/17/2025 9:27 PM CDT Kelly SCOTT LAB BLOOD ORDERABLES Fin al Result Performing Organization Address [facility] de Phone Number [facility] Department [place] [address] * Basic metabolic panel (06/17/2025 7:36 PM CDT) Pathologist [facility] Sodium 140 135 - 145 mmol/L Potassium, pl 4.5 3.3 - 4.9 mmol/L [facility] Chloride 102 97 - 110 mmol/L [facility] CO2 26 22 - 32 mmol/L [facility] Anion gap 12 2 - 15 mmol/L [facility] BUN 18 6 - 25 mg/dL [facility] Creatinine 0.65 0.60 - 1.10 mg/dL [facility] Glucose 158 70 - 199 mg/dL [facility] Comment: Interpretive Data Fasting glucose >/= 126 mg/dl is diagnostic for diabetes. Fasting is defined as no caloric intake for at least 8 hours. Fasting glucose between 100 mg/dl to 125 mg/dl is diagnostic of prediabetes. In a patient with classic symptoms of hyperglycemia or hyperglycemic crisis, a random glucose >/= 200 mg/dl is diagnostic for diabetes. In the absence of unequivocal hyperglycemia, results should be confirmed by repeat testing. The classification and Diagnosis of Diabetes Diabetes Care 202; 46: S19-S40. Current interpretive data was last revised 2022. Calcium 8.9 8.5 - 10.3 mg/dL [facility] Blood 06/17/2025 7:36 PM CDT 06/17/2025 9:27 PM CDT Kelly SCOTT LAB BLOOD ORDERABLES Fin al Result Performing Organization Address City/[facility]/ZIP Co de Phone Number [facility] [place] [address] * POCT glucose (06/17/2025 6:23 PM CDT) Glucose, POC 115 70 - 199 mg/dL Blood 06/17/2025 6:23 PM CDT 06/17/2025 6:23 PM CDT us Dari Bojorquez MD LAB POCT ORDERABLES - DEVICE Final Result Performing Organization Address [facility] Co de Phone Number [facility] [place] [address] * POCT glucose (06/17/2025 12:51 PM CDT) Glucose, POC 158 70 - 199 mg/dL Blood 06/17/2025 12:5 1 PM CDT 06/17/2025 12:51 PM CDT us Dari Bojorquez MD LAB POCT ORDERABLES - DEVICE Final Result Performing Organization Address City/[facility] Co de Phone Number [facility] [place] [address] * POCT glucose (06/17/2025 9:39 AM CDT) Glucose, POC 156 70 - 199 mg/dL Blood 06/17/2025 9:39 AM CDT 06/17/2025 9:39 AM CDT Dari Bojorquez MD LAB POCT ORDERABLES - DEVICE Final Result Performing Organization Address City/[facility] Co de Phone Number [facility] [place] [address] * POCT glucose (06/17/2025 1:54 AM CDT) Glucose, POC 100 70 - 199 mg/dL Blood 06/17/2025 1:54 AM CDT 06/17/2025 1:54 AM CDT Dari Bojorquez MD LAB POCT ORDERABLES - DEVICE Final Result Performing Organization Address City/[facility] Co de Phone Number [facility] [place] [address] * eGFR (06/16/2025 10:31 PM CDT) eGFR >90 >=60 mL/min/1. 73 m2 Comment: Interpretive Data Reference Interval Normal >/= 90 mL/min/1.73m2 Mildly decreased* 60 - 89 mL/min/1.73m2 Mildly to moderately decreased 45 - 59 mL/min/1.73m2 Moderately to severely decreased 30 - 44 mL/min/1.73m2 Severely decreased 15 - 29 mL/min/1.73m2 Kidney Failure < 15 mL/min/1.73m2 *Relative to young adult level Estimated glomerular filtration rate is determined by the 2020 CKD-EPI equation recommended by the National Kidney Foundation (A Unifying Approach to GFR Estimation: Recommendations of the NKF-ASK Task Force on Reassessing the Inclusion of Race in Diagnosing Kidney Disease, JASN 2020). The CKD-EPI equation should not be used for patients with unstable renal function and has not been validated in children and those over 70. Current interpretive data was last reviewed 2021. Blood 06/16/2025 10:3 1 PM CDT 06/16/2025 11:28 PM CDT Kelly SCOTT LAB BLOOD ORDERABLES Fin al Result Performing Organization Address [facility] Co de Phone Number [facility] Department [place] [address] * (ABNORMAL) CBC without differential (06/16/2025 10:31 PM CDT) WBC 19.73(H) 3.80 - 9.90 K/cumm Hgb 8.8(L) 11.9 - 15.5 g/dL [facility] Hct 27.6(L) 35.6 - 45.5 % [facility] Plt 783(H) 150 - 400 K/cumm [facility] MPV 9.3 9.1 - 12.3 fL [facility] RBC 3.09(L) 3.90 - 5.20 M/cumm [facility] MCV 89.3 81.3 - 96.4 fL [facility] MCH 28.5 27.1 - 33.3 pg [facility] MCHC 31.9(L) 32.3 - 35.7 g/dL [facility] RDW CV 15.9(H) 11.1 - 14.9 % [facility] RDW SD 46.9 35.7 - 48.1 fL [facility] NRBC abs 0.07(H) 0.00 - 0.01 K/cumm [facility] Blood 06/16/2025 10:3 1 PM CDT 06/16/2025 11:30 PM CDT Kelly SCOTT LAB BLOOD ORDERABLES Ramiro al Result Performing Organization Address [facility] Co de Phone Number [facility] Department [place] [address] * Phosphorus (06/16/2025 10:31 PM CDT) Phosphorus, pl 4.4 2.3 - 4.5 mg/dL Blood 06/16/2025 10:3 1 PM CDT 06/16/2025 11:[address] [facility] [place] LAB BLOOD ORDERABLES Fin al Result Performing Organization Address City/[facility] Co de Phone Number [facility] [place] [address] * Magnesium (06/16/2025 10:31 PM CDT) Pathologist [facility] Magnesium 1.7 1.4 - 2.5 mg/dL Blood 06/16/2025 10:3 1 PM CDT 06/16/2025 11:[address] [facility] Kelly No [place] LAB BLOOD ORDERABLES Fin al Result Performing Organization Address [facility] de Phone Number [facility] [place] [address] * Basic metabolic panel (06/16/2025 10:31 PM CDT) Pathologist [facility] Sodium 140 135 - 145 mmol/L Potassium, pl 4.6 3.3 - 4.9 mmol/L [facility] Chloride 104 97 - 110 mmol/L [facility] CO2 25 22 - 32 mmol/L [facility] Anion gap 11 2 - 15 mmol/L [facility] BUN 16 6 - 25 mg/dL [facility] Creatinine 0.69 0.60 - 1.10 mg/dL [facility] Glucose 111 70 - 199 mg/dL [facility] Comment: Interpretive Data Fasting glucose >/= 126 mg/dl is diagnostic for diabetes. Fasting is defined as no caloric intake for at least 8 hours. Fasting glucose between 100 mg/dl to 125 mg/dl is diagnostic of prediabetes. In a patient with classic symptoms of hyperglycemia or hyperglycemic crisis, a random glucose >/= 200 mg/dl is diagnostic for diabetes. In the absence of unequivocal hyperglycemia, results should be confirmed by repeat testing. The classification and Diagnosis of Diabetes Diabetes Care 2021; 46: S19-S40. Current interpretive data was last revised 2022. Calcium 9.2 8.5 - 10.3 mg/dL [facility] Blood 06/16/2025 10:3 1 PM CDT 06/16/2025 11:28 PM CDT Kelly SCOTT LAB BLOOD ORDERABLES Fin al Result Performing Organization Address City/[facility] Co de Phone Number [facility] [place] [address] * POCT glucose (06/16/2025 9:01 PM CDT) Glucose, POC 133 70 - 199 mg/dL Blood 06/16/2025 9:01 PM CDT 06/16/2025 9:01 PM CDT us Dari Bojorquez MD LAB POCT ORDERABLES - DEVICE Final Result Performing Organization Address [facility] de Phone Number [facility] [place] [address] * POCT glucose (06/16/2025 3:57 PM CDT) Glucose, POC 172 70 - 199 mg/dL Blood 06/16/2025 3:57 PM CDT 06/16/2025 3:57 PM CDT Dari Bojorquez MD LAB POCT ORDERABLES - DEVICE Final Result Performing Organization Address [facility] de Phone Number [facility] [place] [address] * POCT glucose (06/16/2025 11:45 AM CDT) Glucose, POC 137 70 - 199 mg/dL Blood 06/16/2025 11:4 5 AM CDT 06/16/2025 11:45 AM CDT Dari Bojorquez MD LAB POCT ORDERABLES - DEVICE Final Result Performing Organization Address City/[facility] Co de Phone Number [facility] [place] [address] * POCT glucose (06/16/2025 7:51 AM CDT) Glucose, POC 176 70 - 199 mg/dL Blood 06/16/2025 7:51 AM CDT 06/16/2025 7:51 AM CDT Dari Bojorquez MD LAB POCT ORDERABLES - DEVICE Final Result Performing Organization Address [facility] de Phone Number [facility] Department [place] [address] * eGFR (06/15/2025 9:56 PM CDT) eGFR >90 >=60 mL/min/1. 73 m2 Comment: Interpretive Data Reference Interval Normal >/= 90 mL/min/1.73m2 Mildly decreased* 60 - 89 mL/min/1.73m2 Mildly to moderately decreased 45 - 59 mL/min/1.73m2 Moderately to severely decreased 30 - 44 mL/min/1.73m2 Severely decreased 15 - 29 mL/min/1.73m2 Kidney Failure < 15 mL/min/1.73m2 *Relative to young adult level Estimated glomerular filtration rate is determined by the 2020 CKD-EPI equation recommended by the National Kidney Foundation (A Unifying Approach to GFR Estimation: Recommendations of the NKF-ASK Task Force on Reassessing the Inclusion of Race in Diagnosing Kidney Disease, JASN 2020). The CKD-EPI equation should not be used for patients with unstable renal function and has not been validated in children and those over 70. Current interpretive data was last reviewed 2021. Blood 06/15/2025 9:56 PM CDT 06/15/2025 10:35 PM CDT Kelly SCOTT LAB BLOOD ORDERABLES Fin al Result Performing Organization Address [facility] de Phone Number [facility] Department [place] [address] * (ABNORMAL) CBC without differential (06/15/2025 9:56 PM CDT) Pathologist [facility] WBC 18.70(H) 3.80 - 9.90 K/cumm Hgb 8.8(L) 11.9 - 15.5 g/dL [facility] Hct 27.2(L) 35.6 - 45.5 % [facility] Plt 736(H) 150 - 400 K/cumm [facility] MPV 8.9(L) 9.1 - 12.3 fL [facility] RBC 3.10(L) 3.90 - 5.20 M/cumm [facility] MCV 87.7 81.3 - 96.4 fL [facility] MCH 28.4 27.1 - 33.3 pg [facility] MCHC 32.4 32.3 - 35.7 g/dL [facility] RDW CV 15.3(H) 11.1 - 14.9 % [facility] RDW SD 44.8 35.7 - 48.1 fL [facility] NRBC abs 0.04(H) 0.00 - 0.01 K/cumm [facility] Blood 06/15/2025 9:56 PM CDT 06/15/2025 10:36 PM CDT Kelly SCOTT LAB BLOOD ORDERABLES Fin al Result Performing Organization Address [facility]/ZIP Co de Phone Number [facility] Department [place] [address] * Phosphorus (06/15/2025 9:56 PM CDT) Pathologist [facility] Phosphorus, pl 3.2 2.3 - 4.5 mg/dL Blood 06/15/2025 9:56 PM CDT 06/15/2025 10:35 PM CDT Kelly SCOTT LAB BLOOD ORDERABLES Fin al Result Performing Organization Address [facility] de Phone Number [facility] [place] [address] * Magnesium (06/15/2025 9:56 PM CDT) Pathologist [facility] Magnesium 1.7 1.4 - 2.5 mg/dL Blood 06/15/2025 9:56 PM CDT 06/15/2025 10:35 PM CDT Kelly SCOTT LAB BLOOD ORDERABLES Fin al Result Performing Organization Address [facility] de Phone Number [facility] [place] [address] * Basic metabolic panel (06/15/2025 9:56 PM CDT) Pathologist [facility] Sodium 142 135 - 145 mmol/L Comment:Repeated and Verifie d Potassium, pl 4.3 3.3 - 4.9 mmol/L [facility] Chloride 106 97 - 110 mmol/L [facility] Comment:Repeated and Verifie d CO2 28 22 - 32 mmol/L [facility] Anion gap 8 2 - 15 mmol/L [facility] Comment:Reviewed BUN 14 6 - 25 mg/dL [facility] Creatinine 0.64 0.60 - 1.10 mg/dL [facility] Glucose 153 70 - 199 mg/dL [facility] Comment: Interpretive Data Fasting glucose >/= 126 mg/dl is diagnostic for diabetes. Fasting is defined as no caloric intake for at least 8 hours. Fasting glucose between 100 mg/dl to 125 mg/dl is diagnostic of prediabetes. In a patient with classic symptoms of hyperglycemia or hyperglycemic crisis, a random glucose >/= 200 mg/dl is diagnostic for diabetes. In the absence of unequivocal hyperglycemia, results should be confirmed by repeat testing. The classification and Diagnosis of Diabetes Diabetes Care 2021; 46: S19-S40. Current interpretive data was last revised 2022. Calcium 9.2 8.5 - 10.3 mg/dL [facility] Blood 06/15/2025 9:56 PM CDT 06/15/2025 10:35 PM CDT Kelly SCOTT LAB BLOOD ORDERABLES Fin al Result Performing Organization Address City/[facility] Co de Phone Number [facility] [place] [address] * (ABNORMAL) POCT glucose (06/15/2025 8:05 PM CDT) Glucose, POC 227(H) 70 - 199 mg/dL Blood 06/15/2025 8:05 PM CDT 06/15/2025 8:05 PM CDT Dari Bojorquez MD LAB POCT ORDERABLES - DEVICE Final Result Performing Organization Address [facility] Co de Phone Number [facility] [place] [address] * POCT glucose (06/15/2025 5:35 PM CDT) Glucose, POC 197 70 - 199 mg/dL Comment:Glu2: RN/MD Notified Glucose comment 1 Glu2: RN/MD Notified [facility] Blood 06/15/2025 5:35 PM CDT 06/15/2025 5:35 PM CDT Dari Bojorquez MD LAB POCT ORDERABLES - DEVICE Final Result Performing Organization Address City/[facility]/ZIP Co de Phone Number [facility] [place] [address] * COVID-19 Coronavirus RNA Nasopharyngeal (06/15/2025 12:21 PM CDT) Pathologist [facility] COVID-19 RNA Negative Negative [facility] Nasopharyngeal 06/15/2025 12 :21 PM CDT 06/15/2025 12:50 PM CDT Ariadna FLOREZ [facility] - 06/15/2025 1:25 PM CDT Is the patient experiencing any symptoms consistent with COVID (eg. Fever, cough, shortness of breath)?->No What is the reason for testing?->Screening for post-acute care placement Interpretive data Testing performed by [facility] ([phone]). This test is performed using the [employer] Xpert Xpress CoV-2 plus assay. This is a real-time RT-PCR test intended for the qualitative detection of nucleic acid from the SARS-CoV-2. This assay has been cleared by the [place] Food and Drug administration. The performance characteristics have been verified by the [facility]. Results must be considered in the clinical context, and a negative result does not rule out infection. Interpretive data last revised 2024. Interpretive data Testing performed by [facility] ([phone]). This test is performed using the [employer]ishop[employer] Xpert Xpress CoV-2 plus assay. This is a real-time RT-PCR test intended for the qualitative detection of nucleic acid from the SARS-CoV-2. This assay has been cleared by the [place] Food and Drug administration. The performance characteristics have been verified by the [facility]. Results must be considered in the clinical context, and a negative result does not rule out infection. Interpretive data last revised 2024. us Yessy Campbell PhD LAB MICROBIOLOGY - GENERAL ORDER RUPERTO Final Result [facility] [place] [address] [facility] * (ABNORMAL) POCT glucose (06/15/2025 12:05 PM CDT) Glucose, POC 215(H) 70 - 199 mg/dL Comment:Glu2: RN/ Notified Glucose comment 1 Glu2: RACHEL/ Notified [facility] Blood 06/15/2025 12:0 5 PM CDT 06/15/2025 12:05 PM CDT Dari Bojorquez MD LAB POCT ORDERABLES - DEVICE Final Result Performing Organization Address [facility] Co de Phone Number [facility] Department [place] [address] * (ABNORMAL) POCT glucose (06/15/2025 7:52 AM CDT) [facility] Glucose, POC 235(H) 70 - 199 mg/dL Comment:Glu2: RACHEL/ Notified Glucose comment 1 Glu2: RACHEL/ Notified [facility] Blood 06/15/2025 7:52 AM CDT 06/15/2025 7:52 AM CDT Dari Bojorquez MD LAB POCT ORDERABLES - DEVICE Final Result Performing Organization Address [facility] de Phone Number [facility] Department [place] [address] * Infection Prevention Nikhil auris PCR, surveillance Axilla/Groin (06/15/2025 3:46 AM CDT) [facility] Nikhil auris DNA Not Detected Not Detected [facility] Comment: Interpretive Data Testing performed by [facility] Infectious Disease Laboratory using the Daisy adelso 6800 Nikhil auris assay. This assay detects DNA from Nikhil auris using Real-Time PCR. This assay is laboratory developed and is not cleared by the [place] Food and Drug Administration. The performance characteristics have been verified by the [facility]. Axilla/Groin 06/15/2025 3:46 AM CDT 06/15/2025 4:17 AM CDT Narrative VIKKI [facility] - 06/15/2025 2:26 PM CDT Order placed by [facility] due to ring surveillance. us Instant Order Generic Provider LAB MICROBIOLOGY - GENERAL ORDERABLES Final Result [facility] Department [place] [address] [facility] * Sodium, whole blood (06/15/2025 3:46 AM CDT) Sodium, Whole Blood 140 135 - 145 mmol/L Blood 06/15/2025 3:46 AM CDT 06/15/2025 3:55 AM CDT us Dari Bojorquez MD LAB BLOOD ORDERABLES Final Result Performing Organization Address City/[facility]/ZIP Co de Phone Number [facility] Department [place] [address] * eGFR (06/14/2025 8:41 PM CDT) eGFR >90 >=60 mL/min/1. 73 m2 Comment: Interpretive Data Reference Interval Normal >/= 90 mL/min/1.73m2 Mildly decreased* 60 - 89 mL/min/1.73m2 Mildly to moderately decreased 45 - 59 mL/min/1.73m2 Moderately to severely decreased 30 - 44 mL/min/1.73m2 Severely decreased 15 - 29 mL/min/1.73m2 Kidney Failure < 15 mL/min/1.73m2 *Relative to young adult level Estimated glomerular filtration rate is determined by the 2020 CKD-EPI equation recommended by the National Kidney Foundation (A Unifying Approach to GFR Estimation: Recommendations of the NKF-ASK Task Force on Reassessing the Inclusion of Race in Diagnosing Kidney Disease, JASN 2020). The CKD-EPI equation should not be used for patients with unstable renal function and has not been validated in children and those over 70. Current interpretive data was last reviewed 2021. Blood 06/14/2025 8:41 PM CDT 06/14/2025 8:56 PM CDT Kelly SCOTT LAB BLOOD ORDERABLES Fin al Result Performing Organization Address [facility] Co de Phone Number [facility] Department [place] [address] * (ABNORMAL) CBC without differential (06/14/2025 8:41 PM CDT) Pathologist [facility] WBC 18.53(H) 3.80 - 9.90 K/cumm Hgb 8.4(L) 11.9 - 15.5 g/dL [facility] Hct 26.0(L) 35.6 - 45.5 % [facility] Plt 664(H) 150 - 400 K/cumm [facility] MPV 8.8(L) 9.1 - 12.3 fL [facility] RBC 2.94(L) 3.90 - 5.20 M/cumm [facility] MCV 88.4 81.3 - 96.4 fL [facility] MCH 28.6 27.1 - 33.3 pg [facility] MCHC 32.3 32.3 - 35.7 g/dL [facility] RDW CV 14.8 11.1 - 14.9 % [facility] RDW SD 45.4 35.7 - 48.1 fL [facility] NRBC abs 0.00 0.00 - 0.01 K/cumm [facility] Blood 06/14/2025 8:41 PM CDT 06/14/2025 8:55 PM CDT Kelly SCOTT LAB BLOOD ORDERABLES Fin al Result Performing Organization Address [facility] Co de Phone Number [facility] Department [place] [address] * Phosphorus (06/14/2025 8:41 PM CDT) Pathologist [facility] Phosphorus, pl 2.3 2.3 - 4.5 mg/dL Blood 06/14/2025 8:41 PM CDT 06/14/2025 8:56 PM CDT Kelly SCOTT LAB BLOOD ORDERABLES Fin al Result Performing Organization Address City/[facility]/ZIP Co de Phone Number [facility] Department [place] [address] * Magnesium (06/14/2025 8:41 PM CDT) [facility] Magnesium 1.5 1.4 - 2.5 mg/dL Blood 06/14/2025 8:41 PM CDT 06/14/2025 8:56 PM CDT Kelly SCOTT LAB BLOOD ORDERABLES Fin al Result Performing Organization Address [facility] de Phone Number [facility] Department [place] [address] * (ABNORMAL) Basic metabolic panel (06/14/2025 8:41 PM CDT) [facility] Sodium 150(H) 135 - 145 mmol/L Comment:Repeated and Verifie d Potassium, pl 4.8 3.3 - 4.9 mmol/L [facility] Chloride 115(H) 97 - 110 mmol/L [facility] CO2 25 22 - 32 mmol/L [facility] Anion gap 10 2 - 15 mmol/L [facility] BUN 11 6 - 25 mg/dL [facility] Creatinine 0.56(L) 0.60 - 1.10 mg/dL [facility] Glucose 200(H) 70 - 199 mg/dL [facility] Comment: Interpretive Data Fasting glucose >/= 126 mg/dl is diagnostic for diabetes. Fasting is defined as no caloric intake for at least 8 hours. Fasting glucose between 100 mg/dl to 125 mg/dl is diagnostic of prediabetes. In a patient with classic symptoms of hyperglycemia or hyperglycemic crisis, a random glucose >/= 200 mg/dl is diagnostic for diabetes. In the absence of unequivocal hyperglycemia, results should be confirmed by repeat testing. The classification and Diagnosis of Diabetes Diabetes Care 2021; 46: S19-S40. Current interpretive data was last revised 2022. Calcium 8.5 8.5 - 10.3 mg/dL [facility] Blood 06/14/2025 8:41 PM CDT 06/14/2025 8:56 PM CDT us Kelly SCOTT LAB BLOOD ORDERABLES Fin al Result [facility] [place] [address] * POCT glucose (06/14/2025 7:42 PM CDT) Glucose, POC 188 70 - 199 mg/dL Blood 06/14/2025 7:42 PM CDT 06/14/2025 7:42 PM CDT us Dari Bojorquez MD LAB POCT ORDERABLES - DEVICE Final Result Performing Organization Address City/[facility]/ZIP Co de Phone Number [facility] [place] [address] * POCT glucose (06/14/2025 4:59 PM CDT) Glucose, POC 131 70 - 199 mg/dL Blood 06/14/2025 4:59 PM CDT 06/14/2025 4:59 PM CDT Dari Bojorquez MD LAB POCT ORDERABLES - DEVICE Final Result Performing Organization Address City/[facility] Co de Phone Number [facility] [place] [address] * (ABNORMAL) POCT glucose (06/14/2025 11:50 AM CDT) Glucose, POC 263(H) 70 - 199 mg/dL Comment:Glu2: RN/ Notified Glucose comment 1 Glu2: RN/ Notified [facility] Blood 06/14/2025 11:5 0 AM CDT 06/14/2025 11:50 AM CDT us Dari Bojorquez MD LAB POCT ORDERABLES - DEVICE Final Result Performing Organization Address City/[facility] Co de Phone Number [facility] Department [place] [address] * (ABNORMAL) POCT glucose (06/14/2025 7:49 AM CDT) Glucose, POC 220(H) 70 - 199 mg/dL Comment:Glu2: RACHEL/ Notified Glucose comment 1 Glu2: RACHEL/ Notified [facility] Blood 06/14/2025 7:49 AM CDT 06/14/2025 7:49 AM CDT us Dari Bojorquez MD LAB POCT ORDERABLES - DEVICE Final Result Performing Organization Address [facility] de Phone Number [facility] Department [place] [address] * eGFR (06/13/2025 11:24 PM CDT) eGFR >90 >=60 mL/min/1. 73 m2 Comment: Interpretive Data Reference Interval Normal >/= 90 mL/min/1.73m2 Mildly decreased* 60 - 89 mL/min/1.73m2 Mildly to moderately decreased 45 - 59 mL/min/1.73m2 Moderately to severely decreased 30 - 44 mL/min/1.73m2 Severely decreased 15 - 29 mL/min/1.73m2 Kidney Failure < 15 mL/min/1.73m2 *Relative to young adult level Estimated glomerular filtration rate is determined by the 2020 CKD-EPI equation recommended by the National Kidney Foundation (A Unifying Approach to GFR Estimation: Recommendations of the NKF-ASK Task Force on Reassessing the Inclusion of Race in Diagnosing Kidney Disease, JASN 2020). The CKD-EPI equation should not be used for patients with unstable renal function and has not been validated in children and those over 70. Current interpretive data was last reviewed 2021. Blood 06/13/2025 11:2 4 PM CDT 06/13/2025 11:42 PM CDT Kelly SCOTT LAB BLOOD ORDERABLES Fin al Result Performing Organization Address City/[facility]/ZIP Co de Phone Number [facility] Department [place] [address] * (ABNORMAL) CBC without differential (06/13/2025 11:24 PM CDT) WBC 18.95(H) 3.80 - 9.90 K/cumm Hgb 9.3(L) 11.9 - 15.5 g/dL [facility] Hct 28.5(L) 35.6 - 45.5 % [facility] Plt 546(H) 150 - 400 K/cumm [facility] MPV 9.2 9.1 - 12.3 fL [facility] RBC 3.20(L) 3.90 - 5.20 M/cumm [facility] MCV 89.1 81.3 - 96.4 fL [facility] MCH 29.1 27.1 - 33.3 pg [facility] MCHC 32.6 32.3 - 35.7 g/dL [facility] RDW CV 14.7 11.1 - 14.9 % [facility] RDW SD 46.3 35.7 - 48.1 fL [facility] NRBC abs 0.00 0.00 - 0.01 K/cumm [facility] Blood 06/13/2025 11:2 4 PM CDT 06/13/2025 11:43 PM CDT Kelly SCOTT LAB BLOOD ORDERABLES Fin al Result Performing Organization Address City/[facility]/ZIP Co de Phone Number [facility] Department [place] [address] * Phosphorus (06/13/2025 11:24 PM CDT) [facility] Phosphorus, pl 2.9 2.3 - 4.5 mg/dL Blood 06/13/2025 11:2 4 PM CDT 06/13/2025 11:42 PM CDT Kelly SCOTT LAB BLOOD ORDERABLES Fin al Result Performing Organization Address [facility] [place] [address] * Magnesium (06/13/2025 11:24 PM CDT) [facility] Magnesium 1.8 1.4 - 2.5 mg/dL Blood 06/13/2025 11:2 4 PM CDT 06/13/2025 11:42 PM CDT Kelly SCTOT LAB BLOOD ORDERABLES Fin al Result Performing Organization Address [facility] de Phone Number [facility] [place] [address] * (ABNORMAL) Basic metabolic panel (06/13/2025 11:24 PM CDT) [facility] Sodium 141 135 - 145 mmol/L Potassium, pl 4.3 3.3 - 4.9 mmol/L [facility] Chloride 106 97 - 110 mmol/L [facility] CO2 27 22 - 32 mmol/L [facility] Anion gap 8 2 - 15 mmol/L [facility] BUN 14 6 - 25 mg/dL [facility] Creatinine 0.51(L) 0.60 - 1.10 mg/dL [facility] Glucose 193 70 - 199 mg/dL [facility] Comment: Interpretive Data Fasting glucose >/= 126 mg/dl is diagnostic for diabetes. Fasting is defined as no caloric intake for at least 8 hours. Fasting glucose between 100 mg/dl to 125 mg/dl is diagnostic of prediabetes. In a patient with classic symptoms of hyperglycemia or hyperglycemic crisis, a random glucose >/= 200 mg/dl is diagnostic for diabetes. In the absence of unequivocal hyperglycemia, results should be confirmed by repeat testing. The classification and Diagnosis of Diabetes Diabetes Care 2021; 46: S19-S40. Current interpretive data was last revised 2022. Calcium 8.2(L) 8.5 - 10.3 mg/dL [facility] Blood 06/13/2025 11:2 4 PM CDT 06/13/2025 11:42 PM CDT Kelly SCOTT LAB BLOOD ORDERABLES Fin al Result Performing Organization Address [facility] Co de Phone Number [facility] Department [place] [address] * POCT glucose (06/13/2025 7:58 PM CDT) Glucose, POC 182 70 - 199 mg/dL Blood 06/13/2025 7:58 PM CDT 06/13/2025 7:58 PM CDT Dari Bojorquez MD LAB POCT ORDERABLES - DEVICE Final Result Performing Organization Address [facility] de Phone Number [facility] Department [place] [address] * POCT glucose (06/13/2025 4:03 PM CDT) Glucose, POC 195 70 - 199 mg/dL Blood 06/13/2025 4:03 PM CDT 06/13/2025 4:03 PM CDT Dari Bojorquez MD LAB POCT ORDERABLES - DEVICE Final Result Performing Organization Address [facility]/State/ZIP Co de Phone Number [facility] Department [place] [address] * (ABNORMAL) POCT glucose (06/13/2025 12:11 PM CDT) Glucose, POC 226(H) 70 - 199 mg/dL Blood 06/13/2025 12:1 1 PM CDT 06/13/2025 12:11 PM CDT us Dari Bojorquez MD LAB POCT ORDERABLES - DEVICE Final Result Performing Organization Address [facility] Co de Phone Number [facility] [place] [address] * ECG 12 lead (06/13/2025 10:56 AM CDT) [facility] Ventricular Rate EKG/Min 63 BPM [facility] Atrial Rate 63 BPM [facility] [place]-Interval (MSEC) 148 ms [facility] QRS-Interval (MSEC) 82 ms [facility] QT-Interval (MSEC) 396 ms [facility] QTc 405 ms [facility] P [place] 20 degrees [facility] R [place] 50 degrees [facility] T [place] 72 degrees [facility] Diagnosis Normal sinus rhythm Low voltage QRS Septal infarct , age undetermined Abnormal ECG No previous ECGs available Confirmed by Peter HEALY, [id number] on 06/14/2025 12:48:01 PM [facility] 06/13/2025 10:5 6 AM CDT 06/14/2025 12:48 PM CDT us Jovita Mo CLINICAL SCIENTIST ECG ORDERABLES Final Resu lt [facility] * POCT glucose (06/13/2025 8:01 AM CDT) Glucose, POC 189 70 - 199 mg/dL Blood 06/13/2025 8:01 AM CDT 06/13/2025 8:01 AM CDT Dari Bojorquez MD LAB POCT ORDERABLES - DEVICE Final Result Performing Organization Address [facility] Co de Phone Number [facility] Department [place] [address] * eGFR (06/12/2025 9:05 PM CDT) Pathologist [facility] eGFR >90 >=60 mL/min/1. 73 m2 Comment: Interpretive Data Reference Interval Normal >/= 90 mL/min/1.73m2 Mildly decreased* 60 - 89 mL/min/1.73m2 Mildly to moderately decreased 45 - 59 mL/min/1.73m2 Moderately to severely decreased 30 - 44 mL/min/1.73m2 Severely decreased 15 - 29 mL/min/1.73m2 Kidney Failure < 15 mL/min/1.73m2 *Relative to young adult level Estimated glomerular filtration rate is determined by the 2020 CKD-EPI equation recommended by the National Kidney Foundation (A Unifying Approach to GFR Estimation: Recommendations of the NKF-ASK Task Force on Reassessing the Inclusion of Race in Diagnosing Kidney Disease, JASN 2020). The CKD-EPI equation should not be used for patients with unstable renal function and has not been validated in children and those over 70. Current interpretive data was last reviewed 2021. Blood 06/12/2025 9:05 PM CDT 06/12/2025 9:34 PM CDT us Kelly SCOTT LAB BLOOD ORDERABLES Fin al Result Performing Organization Address City/[facility]/ZIP Co de Phone Number [facility] Department [place] [address] * (ABNORMAL) CBC without differential (06/12/2025 9:05 PM CDT) Pathologist [facility] WBC 20.49(H) 3.80 - 9.90 K/cumm Hgb 9.2(L) 11.9 - 15.5 g/dL [facility] Hct 29.2(L) 35.6 - 45.5 % [facility] Plt 603(H) 150 - 400 K/cumm [facility] MPV 9.1 9.1 - 12.3 fL [facility] RBC 3.25(L) 3.90 - 5.20 M/cumm [facility] MCV 89.8 81.3 - 96.4 fL [facility] MCH 28.3 27.1 - 33.3 pg [facility] MCHC 31.5(L) 32.3 - 35.7 g/dL [facility] RDW CV 14.7 11.1 - 14.9 % [facility] RDW SD 46.4 35.7 - 48.1 fL [facility] NRBC abs 0.00 0.00 - 0.01 K/cumm [facility] Blood 06/12/2025 9:05 PM CDT 06/12/2025 9:24 PM CDT us Kelly No PA LAB BLOOD ORDERABLES Fin al Result [facility] Department [place] [address] * (ABNORMAL) Prealbumin (06/12/2025 9:05 PM CDT) Prealbumin 18.0(L) 20.0 - 40.0 mg/dL Blood 06/12/2025 9:05 PM CDT 06/12/2025 9:26 PM CDT us Jovita Mo CLINICAL SCIENTIST LAB BLOOD ORDERABLES Final Result [facility] Department [place] [address] * Phosphorus (06/12/2025 9:05 PM CDT) Phosphorus, pl 3.3 2.3 - 4.5 mg/dL Blood 06/12/2025 9:05 PM CDT 06/12/2025 9:21 PM CDT Kelly SCOTT LAB BLOOD ORDERABLES Fin al Result Performing Organization Address [facility] de Phone Number [facility] [place] [address] * Magnesium (06/12/2025 9:05 PM CDT) [facility] Magnesium 1.4 1.4 - 2.5 mg/dL Blood 06/12/2025 9:05 PM CDT 06/12/2025 9:21 PM CDT Kelly SCOTT LAB BLOOD ORDERABLES Fin al Result Performing Organization Address [facility] de Phone Number [facility] [place] [address] * (ABNORMAL) Albumin (06/12/2025 9:05 PM CDT) [facility] Albumin 2.6(L) 3.5 - 5.0 g/dL Blood 06/12/2025 9:05 PM CDT 06/12/2025 9:21 PM CDT Dari Bojorquez MD LAB BLOOD ORDERABLES Final Result Performing Organization Address [facility] [place] [address] * (ABNORMAL) Basic metabolic panel (06/12/2025 9:05 PM CDT) [facility] Sodium 141 135 - 145 mmol/L Potassium, pl 4.3 3.3 - 4.9 mmol/L [facility] Chloride 107 97 - 110 mmol/L [facility] CO2 25 22 - 32 mmol/L [facility] Anion gap 9 2 - 15 mmol/L [facility] BUN 9 6 - 25 mg/dL [facility] Creatinine 0.49(L) 0.60 - 1.10 mg/dL [facility] Glucose 209(H) 70 - 199 mg/dL [facility] Comment: Interpretive Data Fasting glucose >/= 126 mg/dl is diagnostic for diabetes. Fasting is defined as no caloric intake for at least 8 hours. Fasting glucose between 100 mg/dl to 125 mg/dl is diagnostic of prediabetes. In a patient with classic symptoms of hyperglycemia or hyperglycemic crisis, a random glucose >/= 200 mg/dl is diagnostic for diabetes. In the absence of unequivocal hyperglycemia, results should be confirmed by repeat testing. The classification and Diagnosis of Diabetes Diabetes Care 2021; 46: S19-S40. Current interpretive data was last revised 2022. Calcium 8.2(L) 8.5 - 10.3 mg/dL [facility] Blood 06/12/2025 9:05 PM CDT 06/12/2025 9:21 PM CDT us Kelly SCOTT LAB BLOOD ORDERABLES Fin al Result [facility] Department of [employer] [place], [place] [id number] * (ABNORMAL) POCT glucose (06/12/2025 9:01 PM CDT) Glucose, POC 234(H) 70 - 199 mg/dL Blood 06/12/2025 9:01 PM CDT 06/12/2025 9:01 PM CDT Dari Bojorquez MD LAB POCT ORDERABLES - DEVICE Final Result [facility] Department [place] [address] * POCT glucose (06/12/2025 5:22 PM CDT) Glucose, POC 146 70 - 199 mg/dL Blood 06/12/2025 5:22 PM CDT 06/12/2025 5:22 PM CDT us Dari Bojorquez MD LAB POCT ORDERABLES - DEVICE Final Result VI[facility]I [facility] Department [place] [address] * [place] AN ELECTIVE ENDOTRACHEAL AIRWAY, [place] 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 (06/12/2025 3:36 PM CDT) Narrative Narendra Barnard CRNA - 06/12/2025 3:36 PM CDT Narendra Barnard CRNA 06/12/2025 3:36 PM Airway Patient location: OR Urgency: elective Date/time: 06/12/2025 3:36 PM Indications for airway management: anesthesia Difficult airway: no Staff: Supervising provider: Higinio Tamayo MD PhD Placed by: Other staff: Narendra Barnard CRNA Emergent airway documentation: Risks and benefits discussed: yes Consent obtained: yes Consent given by: patient Airway prep: Preoxygenated: yes Patient position: sniffing Mask difficulty assessment: 0 - not attempted Spontaneous ventilation during airway: absent Sedation level during airway: GA Final airway details: Final airway type: endotracheal airway Tube type: ETT ETT size: 7.0 mm Cuffed: yes Technique used for successful ETT placement: video laryngoscopy Devices/Methods used in placement: stylet Insertion site: oral Blade type: Jacklyn Video blade type: Moore Blade size: 3 Cormack-Lehane (video): grade I - full view of glottis Cuff volume: 8 mL Cuff inflated with: air ETT to lips: 22 cm Placement verified by: auscultation and CO2 detection Airway secured with: silk tape Number of attempts: 1 us Higinio Tamayo MD PhD ANESTHESIA ORDERABLES Final Result * POCT glucose (06/12/2025 2:51 PM CDT) Glucose, POC 127 70 - 199 mg/dL Blood 06/12/2025 2:51 PM CDT 06/12/2025 2:51 PM CDT Dari Bojorquez MD LAB POCT ORDERABLES - DEVICE Final Result Performing Organization Address [facility] Co de Phone Number [facility] [place] [address] * POCT glucose (06/12/2025 1:11 PM CDT) Pathologist [facility] Glucose, POC 180 70 - 199 mg/dL Blood 06/12/2025 1:11 PM CDT 06/12/2025 1:11 PM CDT Dari Bojorquez MD LAB POCT ORDERABLES - DEVICE Final Result Performing Organization Address [facility] [place] [address] * C. difficile testing Stool (06/12/2025 9:46 AM CDT) Pathologist [facility] Result Negative Negative Toxin Result Negative Negative [facility] C. diff result Negative, free toxin Negative, free toxin [facility] C. diff interp Negative for toxigenic Clostridioides (Clostridium) difficile. Analysis was performed using a glutamate dehydrogenase antigen detection assay combined with a C. difficile toxin detection assay. [facility] Stool 06/12/2025 9:46 AM CDT 06/12/2025 11:12 AM CDT Jovita Mo NP LAB MICROBIOLOGY - GENERAL ORDERABLES Final Result Performing Organization Address [facility] [place] [address] * Infection Prevention VRE Culture Stool (06/12/2025 9:46 AM CDT) Pathologist [facility] Report Final Report: Negative Stool 06/12/2025 9:46 AM CDT 06/12/2025 12:21 PM CDT Narrative [facility] 06/14/2025 2:19 PM CDT Surveillance culture for Infection Prevention purposes only; results indicate colonization, not infection requiring treatment. Testing performed by [facility] ([phone]). Jovita Mo NP LAB MICROBIOLOGY - GENERAL ORDERABLES Final Result Performing Organization Address City/[facility] Co de Phone Number [facility] [place] [address] * POCT glucose (06/12/2025 7:29 AM CDT) Glucose, POC 197 70 - 199 mg/dL Blood 06/12/2025 7:29 AM CDT 06/12/2025 7:29 AM CDT Dari Bojorquez MD LAB POCT ORDERABLES - DEVICE Final Result Performing Organization Address [facility] Co de Phone Number [facility] [place] [address] * POCT glucose (06/12/2025 4:10 AM CDT) Glucose, POC 187 70 - 199 mg/dL Blood 06/12/2025 4:10 AM CDT 06/12/2025 4:10 AM CDT Dari Bojorquez MD LAB POCT ORDERABLES - DEVICE Final Result Performing Organization Address City/[facility] Co de Phone Number [facility] [place] [address] * POCT glucose (06/12/2025 12:29 AM CDT) Glucose, POC 167 70 - 199 mg/dL Blood 06/12/2025 12:2 9 AM CDT 06/12/2025 12:29 AM CDT us Dari Bojorquez MD LAB POCT ORDERABLES - DEVICE Final Result Performing Organization Address [facility] Co de Phone Number VIKK[facility] Department [place] [address] * eGFR (06/11/2025 8:41 PM CDT) eGFR >90 >=60 mL/min/1. 73 m2 Comment: Interpretive Data Reference Interval Normal >/= 90 mL/min/1.73m2 Mildly decreased* 60 - 89 mL/min/1.73m2 Mildly to moderately decreased 45 - 59 mL/min/1.73m2 Moderately to severely decreased 30 - 44 mL/min/1.73m2 Severely decreased 15 - 29 mL/min/1.73m2 Kidney Failure < 15 mL/min/1.73m2 *Relative to young adult level Estimated glomerular filtration rate is determined by the 2020 CKD-EPI equation recommended by the National Kidney Foundation (A Unifying Approach to GFR Estimation: Recommendations of the NKF-ASK Task Force on Reassessing the Inclusion of Race in Diagnosing Kidney Disease, JASN 2020). The CKD-EPI equation should not be used for patients with unstable renal function and has not been validated in children and those over 70. Current interpretive data was last reviewed 2021. Blood 06/11/2025 8:41 PM CDT 06/11/2025 9:01 PM CDT us Kelly SCOTT LAB BLOOD ORDERABLES Fin al Result Performing Organization Address City/[facility]/ZIP Co de Phone Number [facility] Department [place] [address] * (ABNORMAL) CBC without differential (06/11/2025 8:41 PM CDT) WBC 18.16(H) 3.80 - 9.90 K/cumm Hgb 9.3(L) 11.9 - 15.5 g/dL [facility] Hct 29.1(L) 35.6 - 45.5 % [facility] Plt 553(H) 150 - 400 K/cumm [facility] MPV 9.3 9.1 - 12.3 fL [facility] RBC 3.30(L) 3.90 - 5.20 M/cumm [facility] MCV 88.2 81.3 - 96.4 fL [facility] MCH 28.2 27.1 - 33.3 pg [facility] MCHC 32.0(L) 32.3 - 35.7 g/dL [facility] RDW CV 14.9 11.1 - 14.9 % [facility] RDW SD 47.0 35.7 - 48.1 fL [facility] NRBC abs 0.02(H) 0.00 - 0.01 K/cumm [facility] Blood 06/11/2025 8:41 PM CDT 06/11/2025 9:01 PM CDT Kelly SCOTT LAB BLOOD ORDERABLES Fin al Result Performing Organization Address City/[facility] Co de Phone Number [facility] Department [place] [place] [address] * Phosphorus (06/11/2025 8:41 PM CDT) [facility] Phosphorus, pl 3.2 2.3 - 4.5 mg/dL Blood 06/11/2025 8:41 PM CDT 06/11/2025 9:01 PM CDT Kelly SCOTT LAB BLOOD ORDERABLES Fin al Result [facility] [place] [address] * Magnesium (06/11/2025 8:41 PM CDT) Magnesium 1.5 1.4 - 2.5 mg/dL Blood 06/11/2025 8:41 PM CDT 06/11/2025 9:01 PM CDT Kelly SCOTT LAB BLOOD ORDERABLES Fin al Result Performing Organization Address [facility] Co de Phone Number [facility] [place] [address] * Basic metabolic panel (06/11/2025 8:41 PM CDT) [facility] Sodium 143 135 - 145 mmol/L Potassium, pl 4.2 3.3 - 4.9 mmol/L [facility] Chloride 108 97 - 110 mmol/L [facility] CO2 25 22 - 32 mmol/L [facility] Anion gap 10 2 - 15 mmol/L [facility] BUN 11 6 - 25 mg/dL [facility] Creatinine 0.67 0.60 - 1.10 mg/dL [facility] Glucose 150 70 - 199 mg/dL [facility] Comment: Interpretive Data Fasting glucose >/= 126 mg/dl is diagnostic for diabetes. Fasting is defined as no caloric intake for at least 8 hours. Fasting glucose between 100 mg/dl to 125 mg/dl is diagnostic of prediabetes. In a patient with classic symptoms of hyperglycemia or hyperglycemic crisis, a random glucose >/= 200 mg/dl is diagnostic for diabetes. In the absence of unequivocal hyperglycemia, results should be confirmed by repeat testing. The classification and Diagnosis of Diabetes Diabetes Care 2021; 46: S19-S40. Current interpretive data was last revised 2022. Calcium 8.5 8.5 - 10.3 mg/dL [facility] Blood 06/11/2025 8:41 PM CDT 06/11/2025 9:01 PM CDT Kelly SCOTT LAB BLOOD ORDERABLES Fin al Result Performing Organization Address [facility] Co de Phone Number [facility] [place] [address] * POCT glucose (06/11/2025 7:57 PM CDT) Glucose, POC 174 70 - 199 mg/dL Blood 06/11/2025 7:57 PM CDT 06/11/2025 7:57 PM CDT us Dari Bojorquez MD LAB POCT ORDERABLES - DEVICE Final Result Performing Organization Address City/[facility] Co de Phone Number [facility] [place] [address] * POCT glucose (06/11/2025 4:59 PM CDT) Glucose, POC 126 70 - 199 mg/dL Blood 06/11/2025 4:59 PM CDT 06/11/2025 4:59 PM CDT us Dari Bojorquez MD LAB POCT ORDERABLES - DEVICE Final Result Performing Organization Address [facility] Co de Phone Number [facility] [place] [address] * POCT glucose (06/11/2025 3:02 PM CDT) Glucose, POC 114 70 - 199 mg/dL Blood 06/11/2025 3:02 PM CDT 06/11/2025 3:02 PM CDT us Dari Bojorquez MD LAB POCT ORDERABLES - DEVICE Final Result Performing Organization Address [facility] Co de Phone Number [facility] [place] [address] * POCT glucose (06/11/2025 2:20 PM CDT) Glucose, POC 124 70 - 199 mg/dL Blood 06/11/2025 2:20 PM CDT 06/11/2025 2:20 PM CDT us Dari Bojorquez MD LAB POCT ORDERABLES - DEVICE Final Result Performing Organization Address [facility] Co de Phone Number [facility] [place] [address] * POCT glucose (06/11/2025 1:05 PM CDT) Glucose, POC 114 70 - 199 mg/dL Blood 06/11/2025 1:05 PM CDT 06/11/2025 1:05 PM CDT Dari Bojorquez MD LAB POCT ORDERABLES - DEVICE Final Result Performing Organization Address [facility] de Phone Number [facility] [place] [address] * POCT glucose (06/11/2025 12:09 PM CDT) Glucose, POC 152 70 - 199 mg/dL Blood 06/11/2025 12:0 9 PM CDT 06/11/2025 12:09 PM CDT Dari Bojorquez MD LAB POCT ORDERABLES - DEVICE Final Result Performing Organization Address [facility] de Phone Number [facility] [place] [address] * POCT glucose (06/11/2025 11:13 AM CDT) Glucose, POC 162 70 - 199 mg/dL Blood 06/11/2025 11:1 3 AM CDT 06/11/2025 11:13 AM CDT Dari Bojorquez MD LAB POCT ORDERABLES - DEVICE Final Result Performing Organization Address City/[facility]/ZIP Co de Phone Number [facility] [place] [address] * (ABNORMAL) POCT glucose (06/11/2025 10:08 AM CDT) Glucose, POC 205(H) 70 - 199 mg/dL Blood 06/11/2025 10:0 8 AM CDT 06/11/2025 10:08 AM CDT us Dari Bojorquez MD LAB POCT ORDERABLES - DEVICE Final Result Performing Organization Address [facility] Co de Phone Number [facility] [place] [address] * POCT glucose (06/11/2025 9:23 AM CDT) Glucose, POC 176 70 - 199 mg/dL Blood 06/11/2025 9:23 AM CDT 06/11/2025 9:23 AM CDT us Dari Bojorquez MD LAB POCT ORDERABLES - DEVICE Final Result Performing Organization Address [facility] Co de Phone Number [facility] [place] [address] * POCT glucose (06/11/2025 7:59 AM CDT) Glucose, POC 76 70 - 199 mg/dL Blood 06/11/2025 7:59 AM CDT 06/11/2025 7:59 AM CDT Dari Bojorquez MD LAB POCT ORDERABLES - DEVICE Final Result Performing Organization Address [facility]/ZIP Co de Phone Number [facility] [place] [address] * POCT glucose (06/11/2025 6:02 AM CDT) Glucose, POC 113 70 - 199 mg/dL Blood 06/11/2025 6:02 AM CDT 06/11/2025 6:02 AM CDT us Dari Bojorquez MD LAB POCT ORDERABLES - [place] [address] * POCT glucose (06/11/2025 4:30 AM CDT) Glucose, POC 117 70 - 199 mg/dL Blood 06/11/2025 4:30 AM CDT 06/11/2025 4:30 AM CDT us Dari Bojorquez MD LAB POCT ORDERABLES - DEVICE Final Result Performing Organization Address [facility]/[place] [address] * POCT glucose (06/11/2025 3:37 AM CDT) Glucose, POC 117 70 - 199 mg/dL Blood 06/11/2025 3:37 AM CDT 06/11/2025 3:37 AM CDT us Dari Bojorquez MD LAB POCT ORDERABLES - DEVICE Final Result Performing Organization Address [facility]/[place] [address] * POCT glucose (06/11/2025 2:29 AM CDT) Glucose, POC 121 70 - 199 mg/dL Blood 06/11/2025 2:29 AM CDT 06/11/2025 2:29 AM CDT Dari Bojorquez MD LAB POCT ORDERABLES - DEVICE Final Result Performing Organization Address [facility] de Phone Number [facility] [place] [address] * POCT glucose (06/11/2025 1:26 AM CDT) Glucose, POC 140 70 - 199 mg/dL Blood 06/11/2025 1:26 AM CDT 06/11/2025 1:26 AM CDT Dari Bojorquez MD LAB POCT ORDERABLES - DEVICE Final Result Performing Organization Address [facility] de Phone Number [facility] [place] [address] * POCT glucose (06/11/2025 12:16 AM CDT) Glucose, POC 157 70 - 199 mg/dL Blood 06/11/2025 12:1 6 AM CDT 06/11/2025 12:16 AM CDT Dari Bojorquez MD LAB POCT ORDERABLES - DEVICE Final Result Performing Organization Address [facility] de Phone Number [facility] [place] [address] * POCT glucose (06/10/2025 11:00 PM CDT) Glucose, POC 194 70 - 199 mg/dL Blood 06/10/2025 11:0 0 PM CDT 06/10/2025 11:00 PM CDT us Dari Bojorquez MD LAB POCT ORDERABLES - DEVICE Final Result Performing Organization Address [facility] Co de Phone Number [facility] [place] [address] * (ABNORMAL) POCT glucose (06/10/2025 9:52 PM CDT) Glucose, POC 211(H) 70 - 199 mg/dL Blood 06/10/2025 9:52 PM CDT 06/10/2025 9:52 PM CDT Dari Bojorquez MD LAB POCT ORDERABLES - DEVICE Final Result Performing Organization Address [facility] Co de Phone Number [facility] [place] [address] * POCT glucose (06/10/2025 8:58 PM CDT) Glucose, POC 164 70 - 199 mg/dL Blood 06/10/2025 8:58 PM CDT 06/10/2025 8:58 PM CDT Dari Bojorquez MD LAB POCT ORDERABLES - DEVICE Final Result Performing Organization Address [facility] Co de Phone Number [facility] [place] [address] * eGFR (06/10/2025 8:47 PM CDT) eGFR >90 >=60 mL/min/1. 73 m2 Comment: Interpretive Data Reference Interval Normal >/= 90 mL/min/1.73m2 Mildly decreased* 60 - 89 mL/min/1.73m2 Mildly to moderately decreased 45 - 59 mL/min/1.73m2 Moderately to severely decreased 30 - 44 mL/min/1.73m2 Severely decreased 15 - 29 mL/min/1.73m2 Kidney Failure < 15 mL/min/1.73m2 *Relative to young adult level Estimated glomerular filtration rate is determined by the 2020 CKD-EPI equation recommended by the National Kidney Foundation (A Unifying Approach to GFR Estimation: Recommendations of the NKF-ASK Task Force on Reassessing the Inclusion of Race in Diagnosing Kidney Disease, JASN 2020). The CKD-EPI equation should not be used for patients with unstable renal function and has not been validated in children and those over 70. Current interpretive data was last reviewed 2021. Blood 06/10/2025 8:47 PM CDT 06/10/2025 9:07 PM CDT us Kelly SCOTT LAB BLOOD ORDERABLES Fin al Result [facility] Department [place] [address] * (ABNORMAL) CBC without differential (06/10/2025 8:47 PM CDT) WBC 25.59(H) 3.80 - 9.90 K/cumm Hgb 10.2(L) 11.9 - 15.5 g/dL [facility] Hct 32.5(L) 35.6 - 45.5 % [facility] Plt 522(H) 150 - 400 K/cumm [facility] MPV 9.4 9.1 - 12.3 fL [facility] RBC 3.67(L) 3.90 - 5.20 M/cumm [facility] MCV 88.6 81.3 - 96.4 fL [facility] MCH 27.8 27.1 - 33.3 pg [facility] MCHC 31.4(L) 32.3 - 35.7 g/dL [facility] RDW CV 14.6 11.1 - 14.9 % [facility] RDW SD 46.5 35.7 - 48.1 fL [facility] NRBC abs 0.02(H) 0.00 - 0.01 K/cumm [facility] Blood 06/10/2025 8:47 PM CDT 06/10/2025 9:07 PM CDT Kelly SCOTT LAB BLOOD ORDERABLES Fin al Result Performing Organization Address [facility] Co de Phone Number [facility] [place] [address] * Phosphorus (06/10/2025 8:47 PM CDT) Pathologist [facility] Phosphorus, pl 3.5 2.3 - 4.5 mg/dL Blood 06/10/2025 8:47 PM CDT 06/10/2025 9:07 PM CDT Kelly SCOTT LAB BLOOD ORDERABLES Fin al Result Performing Organization Address [facility] de Phone Number [facility] [place] [address] * Magnesium (06/10/2025 8:47 PM CDT) [facility] Magnesium 1.6 1.4 - 2.5 mg/dL Blood 06/10/2025 8:47 PM CDT 06/10/2025 9:07 PM CDT Kelly SCOTT LAB BLOOD ORDERABLES Fin al Result Performing Organization Address [facility] de Phone Number [facility] [place] [address] * (ABNORMAL) Basic metabolic panel (06/10/2025 8:47 PM CDT) Pathologist [facility] Sodium 147(H) 135 - 145 mmol/L Potassium, pl 4.4 3.3 - 4.9 mmol/L [facility] Chloride 113(H) 97 - 110 mmol/L [facility] CO2 24 22 - 32 mmol/L [facility] Anion gap 10 2 - 15 mmol/L [facility] BUN 9 6 - 25 mg/dL [facility] Creatinine 0.49(L) 0.60 - 1.10 mg/dL [facility] Glucose 153 70 - 199 mg/dL [facility] Comment: Interpretive Data Fasting glucose >/= 126 mg/dl is diagnostic for diabetes. Fasting is defined as no caloric intake for at least 8 hours. Fasting glucose between 100 mg/dl to 125 mg/dl is diagnostic of prediabetes. In a patient with classic symptoms of hyperglycemia or hyperglycemic crisis, a random glucose >/= 200 mg/dl is diagnostic for diabetes. In the absence of unequivocal hyperglycemia, results should be confirmed by repeat testing. The classification and Diagnosis of Diabetes Diabetes Care 2021; 46: S19-S40. Current interpretive data was last revised 2022. Calcium 8.7 8.5 - 10.3 mg/dL [facility] Blood 06/10/2025 8:47 PM CDT 06/10/2025 9:07 PM CDT Kelly SCOTT LAB BLOOD ORDERABLES Fin al Result [facility] Department [place] [place] [address] * POCT glucose (06/10/2025 8:03 PM CDT) Glucose, POC 141 70 - 199 mg/dL Blood 06/10/2025 8:03 PM CDT 06/10/2025 8:03 PM CDT Dari Bojorquez MD LAB POCT ORDERABLES - DEVICE Final Result [facility] Department [place] [place] [address] * POCT glucose (06/10/2025 6:55 PM CDT) Glucose, POC 125 70 - 199 mg/dL Blood 06/10/2025 6:55 PM CDT 06/10/2025 6:55 PM CDT Dari Bojorquez MD LAB POCT ORDERABLES - DEVICE Final Result Performing Organization Address [facility] de Phone Number [facility] [place] [address] * POCT glucose (06/10/2025 6:01 PM CDT) Glucose, POC 111 70 - 199 mg/dL Blood 06/10/2025 6:01 PM CDT 06/10/2025 6:01 PM CDT Dari Bojorquez MD LAB POCT ORDERABLES - DEVICE Final Result Performing Organization Address [facility] de Phone Number [facility] [place] [address] * POCT glucose (06/10/2025 4:52 PM CDT) Glucose, POC 103 70 - 199 mg/dL Blood 06/10/2025 4:52 PM CDT 06/10/2025 4:52 PM CDT Dari Bojorquez MD LAB POCT ORDERABLES - DEVICE Final Result Performing Organization Address [facility] [place] [address] * [place] AN ELECTIVE ENDOTRACHEAL AIRWAY, [place] 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 (06/10/2025 4:40 PM CDT) Narrative Roselia Rios CRNA - 06/10/2025 4:40 PM CDT Roselia Rios CRNA 06/10/2025 4:40 PM Airway Patient location: OR Urgency: elective Indications for airway management: anesthesia Difficult airway: no Staff: Supervising provider: Higinio Tamayo MD PhD Placed by: GRILL CHEF: Roselia Rios CRNA Emergent airway documentation: Risks and benefits discussed: yes Consent obtained: yes Consent given by: patient Airway prep: Preoxygenated: yes Patient position: sniffing MILS maintained throughout: yes Mask difficulty assessment: 0 - not attempted Spontaneous ventilation during airway: absent Sedation level during airway: GA Final airway details: Final airway type: endotracheal airway Tube type: ETT ETT size: 7.0 mm Cuffed: yes Technique used for successful ETT placement: video laryngoscopy Devices/Methods used in placement: intubating stylet Insertion site: oral Blade type: Jacklyn Video blade type: Moore Blade size: 3 Cormack-Lehane (video): grade I - full view of glottis Cuff volume: 8 mL Cuff inflated with: air ETT to teeth: 22 cm Placement verified by: auscultation and CO2 detection Airway secured with: silk tape Number of attempts: 1 us Higinio Tamayo MD PhD ANESTHESIA ORDERABLES Final Result * POCT hCG, urine (06/10/2025 4:16 PM CDT) HCG, ur, POC Negative Negative Lot Number [id number] QC Backgroud Clear Acceptable QC Control Line Acceptable Urine 06/10/2025 4:16 PM CDT us Higinio Tamayo MD PhD POINT OF CARE TEST ORD ERABLES Final Result * POCT glucose (06/10/2025 3:36 PM CDT) Glucose, POC 116 70 - 199 mg/dL Blood 06/10/2025 3:36 PM CDT 06/10/2025 3:36 PM CDT us Dari Bojorquez MD LAB POCT ORDERABLES - DEVICE Final Result [facility] [place] [address] * POCT glucose (06/10/2025 2:22 PM CDT) Glucose, POC 131 70 - 199 mg/dL Blood 06/10/2025 2:22 PM CDT 06/10/2025 2:22 PM CDT Dari Bojorquez MD LAB POCT ORDERABLES - DEVICE Final Result Performing Organization Address [facility] de Phone Number [facility] [place] [address] * POCT glucose (06/10/2025 1:11 PM CDT) Glucose, POC 124 70 - 199 mg/dL Blood 06/10/2025 1:11 PM CDT 06/10/2025 1:11 PM CDT Dari Bojorquez MD LAB POCT ORDERABLES - DEVICE Final Result Performing Organization Address [facility] de Phone Number [facility] [place] [address] * POCT glucose (06/10/2025 12:19 PM CDT) Glucose, POC 99 70 - 199 mg/dL Blood 06/10/2025 12:1 9 PM CDT 06/10/2025 12:19 PM CDT Dari Bojorquez MD LAB POCT ORDERABLES - DEVICE Final Result Performing Organization Address [facility] de Phone Number [facility] [place] [address] * POCT glucose (06/10/2025 11:13 AM CDT) Glucose, POC 103 70 - 199 mg/dL Blood 06/10/2025 11:1 3 AM CDT 06/10/2025 11:13 AM CDT us Dari Bojorquez MD LAB POCT ORDERABLES - DEVICE Final Result Performing Organization Address City/[facility] Co de Phone Number [facility] [place] [address] * POCT glucose (06/10/2025 10:09 AM CDT) Glucose, POC 114 70 - 199 mg/dL Blood 06/10/2025 10:0 9 AM CDT 06/10/2025 10:09 AM CDT us Dari Bojorquez MD LAB POCT ORDERABLES - DEVICE Final Result Performing Organization Address [facility] de Phone Number [facility] [place] [address] * POCT glucose (06/10/2025 9:13 AM CDT) Glucose, POC 123 70 - 199 mg/dL Blood 06/10/2025 9:13 AM CDT 06/10/2025 9:13 AM CDT us Dari Bojorquez MD LAB POCT ORDERABLES - DEVICE Final Result Performing Organization Address [facility] Co de Phone Number [facility] Department [place] [place] [address] * POCT glucose (06/10/2025 7:56 AM CDT) Glucose, POC 130 70 - 199 mg/dL Blood 06/10/2025 7:56 AM CDT 06/10/2025 7:56 AM CDT Dari Bojorquez MD LAB POCT ORDERABLES - DEVICE Final Result Performing Organization Address [facility] Co de Phone Number [facility] Department [place] [address] * POCT glucose (06/10/2025 6:56 AM CDT) Glucose, POC 144 70 - 199 mg/dL Blood 06/10/2025 6:56 AM CDT 06/10/2025 6:56 AM CDT us Dari Bojorquez MD LAB POCT ORDERABLES - DEVICE Final Result Performing Organization Address [facility]/[place] [address] * POCT glucose (06/10/2025 6:11 AM CDT) Glucose, POC 115 70 - 199 mg/dL Blood 06/10/2025 6:11 AM CDT 06/10/2025 6:11 AM CDT us Dari Bojorquez MD LAB POCT ORDERABLES - DEVICE Final Result Performing Organization Address [facility]/[place] [address] * POCT glucose (06/10/2025 4:50 AM CDT) Glucose, POC 92 70 - 199 mg/dL Blood 06/10/2025 4:50 AM CDT 06/10/2025 4:50 AM CDT us Dari Bojorquez MD LAB POCT ORDERABLES - DEVICE Final Result Performing Organization Address [facility]/[place] [address] * POCT glucose (06/10/2025 4:06 AM CDT) Glucose, POC 105 70 - 199 mg/dL Blood 06/10/2025 4:06 AM CDT 06/10/2025 4:06 AM CDT Dari Bojorquez MD LAB POCT ORDERABLES - DEVICE Final Result Performing Organization Address [facility] Co de Phone Number [facility] [place] [address] * POCT glucose (06/10/2025 3:11 AM CDT) Glucose, POC 129 70 - 199 mg/dL Blood 06/10/2025 3:11 AM CDT 06/10/2025 3:11 AM CDT Dari Bojorquez MD LAB POCT ORDERABLES - DEVICE Final Result Performing Organization Address [facility] de Phone Number [facility] [place] [address] * POCT glucose (06/10/2025 1:58 AM CDT) Glucose, POC 155 70 - 199 mg/dL Blood 06/10/2025 1:58 AM CDT 06/10/2025 1:58 AM CDT Dari Bojorquez MD LAB POCT ORDERABLES - DEVICE Final Result Performing Organization Address [facility] de Phone Number [facility] [place] [address] * POCT glucose (06/10/2025 1:07 AM CDT) Glucose, POC 122 70 - 199 mg/dL Blood 06/10/2025 1:07 AM CDT 06/10/2025 1:07 AM CDT us Dari Bojorquez MD LAB POCT ORDERABLES - DEVICE Final Result Performing Organization Address [facility] Co de Phone Number [facility] [place] [address] * POCT glucose (06/10/2025 12:08 AM CDT) Glucose, POC 144 70 - 199 mg/dL Blood 06/10/2025 12:0 8 AM CDT 06/10/2025 12:08 AM CDT Dari Bojorquez MD LAB POCT ORDERABLES - DEVICE Final Result Performing Organization Address [facility] de Phone Number [facility] [place] [address] * POCT glucose (06/09/2025 11:11 PM CDT) Glucose, POC 159 70 - 199 mg/dL Blood 06/09/2025 11:1 1 PM CDT 06/09/2025 11:11 PM CDT us Dari Bojorquez MD LAB POCT ORDERABLES - DEVICE Final Result Performing Organization Address [facility] Co de Phone Number [facility] Department [place] [address] * POCT glucose (06/09/2025 10:03 PM CDT) Glucose, POC 183 70 - 199 mg/dL Blood 06/09/2025 10:0 3 PM CDT 06/09/2025 10:03 PM CDT Dari Bojorquez MD LAB POCT ORDERABLES - DEVICE Final Result Performing Organization Address [facility] Co de Phone Number [facility] [place] [address] * (ABNORMAL) POCT glucose (06/09/2025 9:06 PM CDT) [facility] Glucose, POC 206(H) 70 - 199 mg/dL Blood 06/09/2025 9:06 PM CDT 06/09/2025 9:06 PM CDT us Dari Bojorquez MD LAB POCT ORDERABLES - DEVICE Final Result Performing Organization Address City/[facility]/ZIP Co de Phone Number [facility] [place] [address] * eGFR (06/09/2025 8:07 PM CDT) [facility] eGFR >90 >=60 mL/min/1. 73 m2 Comment: Interpretive Data Reference Interval Normal >/= 90 mL/min/1.73m2 Mildly decreased* 60 - 89 mL/min/1.73m2 Mildly to moderately decreased 45 - 59 mL/min/1.73m2 Moderately to severely decreased 30 - 44 mL/min/1.73m2 Severely decreased 15 - 29 mL/min/1.73m2 Kidney Failure < 15 mL/min/1.73m2 *Relative to young adult level Estimated glomerular filtration rate is determined by the 2020 CKD-EPI equation recommended by the National Kidney Foundation (A Unifying Approach to GFR Estimation: Recommendations of the NKF-ASK Task Force on Reassessing the Inclusion of Race in Diagnosing Kidney Disease, JASN 2020). The CKD-EPI equation should not be used for patients with unstable renal function and has not been validated in children and those over 70. Current interpretive data was last reviewed 2021. Blood 06/09/2025 8:07 PM CDT 06/09/2025 8:59 PM CDT us Kelly SCOTT LAB BLOOD ORDERABLES Fin al Result [facility] Department [place] [address] * (ABNORMAL) CBC without differential (06/09/2025 8:07 PM CDT) [facility] WBC 20.86(H) 3.80 - 9.90 K/cumm Hgb 9.5(L) 11.9 - 15.5 g/dL [facility] Hct 30.3(L) 35.6 - 45.5 % [facility] Plt 431(H) 150 - 400 K/cumm [facility] MPV 9.9 9.1 - 12.3 fL [facility] RBC 3.42(L) 3.90 - 5.20 M/cumm [facility] MCV 88.6 81.3 - 96.4 fL [facility] MCH 27.8 27.1 - 33.3 pg [facility] MCHC 31.4(L) 32.3 - 35.7 g/dL [facility] RDW CV 14.6 11.1 - 14.9 % [facility] RDW SD 46.2 35.7 - 48.1 fL [facility] NRBC abs 0.02(H) 0.00 - 0.01 K/cumm [facility] Blood 06/09/2025 8:07 PM CDT 06/09/2025 8:59 PM CDT Kelly SCOTT LAB BLOOD ORDERABLES Fin al Result Performing Organization Address City/[facility] Co de Phone Number [facility] Department [place] [address] * Phosphorus (06/09/2025 8:07 PM CDT) [facility] Phosphorus, pl 2.4 2.3 - 4.5 mg/dL Blood 06/09/2025 8:07 PM CDT 06/09/2025 8:59 PM CDT Kelly SCOTT LAB BLOOD ORDERABLES Fin al Result Performing Organization Address City/State/[facility] Co de Phone Number [facility] Department [place] [address] * Magnesium (06/09/2025 8:07 PM CDT) [facility] Magnesium 1.5 1.4 - 2.5 mg/dL Blood 06/09/2025 8:07 PM CDT 06/09/2025 8:59 PM CDT Kelly SCOTT LAB BLOOD ORDERABLES Fin al Result Performing Organization Address [facility] Co de Phone Number [facility] [place] [address] * (ABNORMAL) Basic metabolic panel (06/09/2025 8:07 PM CDT) [facility] Sodium 141 135 - 145 mmol/L Potassium, pl 4.1 3.3 - 4.9 mmol/L [facility] Chloride 107 97 - 110 mmol/L [facility] CO2 25 22 - 32 mmol/L [facility] Anion gap 9 2 - 15 mmol/L [facility] [facility] 10 6 - 25 mg/dL [facility] Creatinine 0.49(L) 0.60 - 1.10 mg/dL [facility] Glucose 210(H) 70 - 199 mg/dL [facility] Comment: Interpretive Data Fasting glucose >/= 126 mg/dl is diagnostic for diabetes. Fasting is defined as no caloric intake for at least 8 hours. Fasting glucose between 100 mg/dl to 125 mg/dl is diagnostic of prediabetes. In a patient with classic symptoms of hyperglycemia or hyperglycemic crisis, a random glucose >/= 200 mg/dl is diagnostic for diabetes. In the absence of unequivocal hyperglycemia, results should be confirmed by repeat testing. The classification and Diagnosis of Diabetes Diabetes Care 2021; 46: S19-S40. Current interpretive data was last revised 2022. Calcium 8.2(L) 8.5 - 10.3 mg/dL [facility] Blood 06/09/2025 8:07 PM CDT 06/09/2025 8:59 PM CDT us Kelly SCOTT LAB BLOOD ORDERABLES Fin al Result Performing Organization Address [facility] Co de Phone Number [facility] [place] [address] * (ABNORMAL) POCT glucose (06/09/2025 8:05 PM CDT) Glucose, POC 208(H) 70 - 199 mg/dL Blood 06/09/2025 8:05 PM CDT 06/09/2025 8:05 PM CDT us Dari Bojorquez MD LAB POCT ORDERABLES - DEVICE Final Result Performing Organization Address [facility] de Phone Number [facility] [place] [address] * (ABNORMAL) POCT glucose (06/09/2025 7:09 PM CDT) Glucose, POC 248(H) 70 - 199 mg/dL Blood 06/09/2025 7:09 PM CDT 06/09/2025 7:09 PM CDT us Dari Bojorquez MD LAB POCT ORDERABLES - DEVICE Final Result Performing Organization Address [facility] Co de Phone Number [facility] [place] [address] * POCT glucose (06/09/2025 6:17 PM CDT) Glucose, POC 176 70 - 199 mg/dL Blood 06/09/2025 6:17 PM CDT 06/09/2025 6:17 PM CDT Dari Bojorquez MD LAB POCT ORDERABLES - DEVICE Final Result Performing Organization Address [facility] Co de Phone Number [facility] [place] [address] * POCT glucose (06/09/2025 5:14 PM CDT) Glucose, POC 186 70 - 199 mg/dL Blood 06/09/2025 5:14 PM CDT 06/09/2025 5:14 PM CDT us Dari Bojorquez MD LAB POCT ORDERABLES - DEVICE Final Result Performing Organization Address [facility] [place] [address] * POCT glucose (06/09/2025 4:19 PM CDT) Glucose, POC 193 70 - 199 mg/dL Blood 06/09/2025 4:19 PM CDT 06/09/2025 4:19 PM CDT us Dari Bojorquez MD LAB POCT ORDERABLES - DEVICE Final Result Performing Organization Address [facility] Co de Phone Number [facility] [place] [address] * POCT glucose (06/09/2025 3:09 PM CDT) Glucose, POC 187 70 - 199 mg/dL Blood 06/09/2025 3:09 PM CDT 06/09/2025 3:09 PM CDT Dari Bojorquez MD LAB POCT ORDERABLES - DEVICE Final Result Performing Organization Address [facility] Co de Phone Number [facility] [place] [address] * POCT glucose (06/09/2025 2:11 PM CDT) Glucose, POC 180 70 - 199 mg/dL Blood 06/09/2025 2:11 PM CDT 06/09/2025 2:11 PM CDT Dari Bojorquez MD LAB POCT ORDERABLES - DEVICE Final Result Performing Organization Address [facility] Co de Phone Number [facility] [place] [address] * POCT glucose (06/09/2025 1:15 PM CDT) Glucose, POC 191 70 - 199 mg/dL Blood 06/09/2025 1:15 PM CDT 06/09/2025 1:15 PM CDT us Dari Bojorquez MD LAB POCT ORDERABLES - DEVICE Final Result Performing Organization Address [facility] Co de Phone Number [facility] [place] [address] * POCT glucose (06/09/2025 12:00 PM CDT) Glucose, POC 147 70 - 199 mg/dL Blood 06/09/2025 12:0 0 PM CDT 06/09/2025 12:00 PM CDT Dari Bojorquez MD LAB POCT ORDERABLES - DEVICE Final Result Performing Organization Address [facility] Co de Phone Number [facility] [place] [address] * (ABNORMAL) POCT glucose (06/09/2025 11:03 AM CDT) Glucose, POC 202(H) 70 - 199 mg/dL Blood 06/09/2025 11:0 3 AM CDT 06/09/2025 11:03 AM CDT Dari Bojorquez MD LAB POCT ORDERABLES - DEVICE Final Result Performing Organization Address [facility] de Phone Number [facility] [place] [address] * POCT glucose (06/09/2025 10:03 AM CDT) Glucose, POC 186 70 - 199 mg/dL Blood 06/09/2025 10:0 3 AM CDT 06/09/2025 10:03 AM CDT Dari Bojorquez MD LAB POCT ORDERABLES - DEVICE Final Result Performing Organization Address [facility] de Phone Number [facility] [place] [address] * POCT glucose (06/09/2025 9:18 AM CDT) Glucose, POC 154 70 - 199 mg/dL Blood 06/09/2025 9:18 AM CDT 06/09/2025 9:18 AM CDT Dari Bojorquez MD LAB POCT ORDERABLES - DEVICE Final Result Performing Organization Address [facility] [place] [address] * POCT glucose (06/09/2025 8:02 AM CDT) Glucose, POC 102 70 - 199 mg/dL Blood 06/09/2025 8:02 AM CDT 06/09/2025 8:02 AM CDT Dari Bojorquez MD LAB POCT ORDERABLES - DEVICE Final Result Performing Organization Address City/[facility]/ZIP Co de Phone Number [facility] [place] [address] * POCT glucose (06/09/2025 6:53 AM CDT) Glucose, POC 111 70 - 199 mg/dL Blood 06/09/2025 6:53 AM CDT 06/09/2025 6:53 AM CDT Dari Bojorquez MD LAB POCT ORDERABLES - DEVICE Final Result Performing Organization Address [facility] [place] [address] * POCT glucose (06/09/2025 6:10 AM CDT) Glucose, POC 121 70 - 199 mg/dL Blood 06/09/2025 6:10 AM CDT 06/09/2025 6:10 AM CDT Dari Bojorquez MD LAB POCT ORDERABLES - DEVICE Final Result Performing Organization Address [facility]/ZIP Co de Phone Number [facility] [place] [address] * POCT glucose (06/09/2025 4:58 AM CDT) Glucose, POC 115 70 - 199 mg/dL Blood 06/09/2025 4:58 AM CDT 06/09/2025 4:58 AM CDT Dari Bojorquez MD LAB POCT ORDERABLES - DEVICE Final Result Performing Organization Address [facility]/ZIP Co de Phone Number [facility] [place] [address] * POCT glucose (06/09/2025 4:07 AM CDT) Glucose, POC 132 70 - 199 mg/dL Blood 06/09/2025 4:07 AM CDT 06/09/2025 4:07 AM CDT Dari Bojorquez MD LAB POCT ORDERABLES - DEVICE Final Result Performing Organization Address [facility]/ZIP Co de Phone Number [facility] [place] [address] * POCT glucose (06/09/2025 3:01 AM CDT) Glucose, POC 85 70 - 199 mg/dL Blood 06/09/2025 3:01 AM CDT 06/09/2025 3:01 AM CDT us Dari Bojorquez MD LAB POCT ORDERABLES - DEVICE Final Result Performing Organization Address [facility]/ZIP Co de Phone Number [facility] [place] [address] * POCT glucose (06/09/2025 2:06 AM CDT) Glucose, POC 125 70 - 199 mg/dL Blood 06/09/2025 2:06 AM CDT 06/09/2025 2:06 AM CDT Dari Bojorquez MD LAB POCT ORDERABLES - DEVICE Final Result Performing Organization Address [facility] [place] [address] * POCT glucose (06/09/2025 1:02 AM CDT) Glucose, POC 142 70 - 199 mg/dL Blood 06/09/2025 1:02 AM CDT 06/09/2025 1:02 AM CDT Dari Bojorquez MD LAB POCT ORDERABLES - DEVICE Final Result Performing Organization Address [facility] de Phone Number [facility] [place] [address] * POCT glucose (06/09/2025 12:09 AM CDT) Glucose, POC 172 70 - 199 mg/dL Blood 06/09/2025 12:0 9 AM CDT 06/09/2025 12:09 AM CDT Dari Bojorquez MD LAB POCT ORDERABLES - DEVICE Final Result Performing Organization Address [facility] de Phone Number [facility] [place] [address] * (ABNORMAL) POCT glucose (06/08/2025 11:08 PM CDT) Glucose, POC 208(H) 70 - 199 mg/dL Blood 06/08/2025 11:0 8 PM CDT 06/08/2025 11:08 PM CDT Dari Bojorquez MD LAB POCT ORDERABLES - DEVICE Final Result Performing Organization Address [facility] [place] [address] * (ABNORMAL) POCT glucose (06/08/2025 10:05 PM CDT) Glucose, POC 202(H) 70 - 199 mg/dL Blood 06/08/2025 10:0 5 PM CDT 06/08/2025 10:05 PM CDT Dari Bojorquez MD LAB POCT ORDERABLES - DEVICE Final Result [facility] Department [place] [address] * POCT glucose (06/08/2025 9:11 PM CDT) Glucose, POC 169 70 - 199 mg/dL Blood 06/08/2025 9:11 PM CDT 06/08/2025 9:11 PM CDT Dari Bojorquez MD LAB POCT ORDERABLES - DEVICE Final Result Performing Organization Address [facility] Co de Phone Number [facility] [place] [address] * eGFR (06/08/2025 8:49 PM CDT) [facility] eGFR >90 >=60 mL/min/1. 73 m2 Comment: Interpretive Data Reference Interval Normal >/= 90 mL/min/1.73m2 Mildly decreased* 60 - 89 mL/min/1.73m2 Mildly to moderately decreased 45 - 59 mL/min/1.73m2 Moderately to severely decreased 30 - 44 mL/min/1.73m2 Severely decreased 15 - 29 mL/min/1.73m2 Kidney Failure < 15 mL/min/1.73m2 *Relative to young adult level Estimated glomerular filtration rate is determined by the 2020 CKD-EPI equation recommended by the National Kid[employer] (A Unifying Approach to GFR Estimation: Recommendations of the NKF-ASK Task Force on Reassessing the Inclusion of Race in Diagnosing Kidney Disease, JASN 2020). The CKD-EPI equation should not be used for patients with unstable renal function and has not been validated in children and those over 70. Current interpretive data was last reviewed 2021. Blood 06/08/2025 8:49 PM CDT 06/08/2025 9:04 PM CDT Kelly SCOTT LAB BLOOD ORDERABLES Fin al Result Performing Organization Address [facility]/ZIP Co de Phone Number [facility] Department [place] [address] * (ABNORMAL) CBC without differential (06/08/2025 8:49 PM CDT) WBC 26.41(H) 3.80 - 9.90 K/cumm Hgb 10.2(L) 11.9 - 15.5 g/dL [facility] Hct 32.3(L) 35.6 - 45.5 % [facility] Plt 430(H) 150 - 400 K/cumm [facility] MPV 9.7 9.1 - 12.3 fL [facility] RBC 3.65(L) 3.90 - 5.20 M/cumm [facility] MCV 88.5 81.3 - 96.4 fL [facility] MCH 27.9 27.1 - 33.3 pg [facility] MCHC 31.6(L) 32.3 - 35.7 g/dL [facility] RDW CV 14.4 11.1 - 14.9 % [facility] RDW SD 45.8 35.7 - 48.1 fL [facility] NRBC abs 0.07(H) 0.00 - 0.01 K/cumm [facility] Blood 06/08/2025 8:49 PM CDT 06/08/2025 9:04 PM CDT Kelly SCOTT LAB BLOOD ORDERABLES Fin al Result [facility] [place] [address] * Phosphorus (06/08/2025 8:49 PM CDT) Phosphorus, pl 3.3 2.3 - 4.5 mg/dL Blood 06/08/2025 8:49 PM CDT 06/08/2025 9:04 PM CDT Kelly SCOTT LAB BLOOD ORDERABLES Fin al Result Performing Organization Address [facility]/ZIP Co de Phone Number [facility] [place] [address] * Magnesium (06/08/2025 8:49 PM CDT) Pathologist [facility] Magnesium 1.7 1.4 - 2.5 mg/dL Blood 06/08/2025 8:49 PM CDT 06/08/2025 9:04 PM CDT Kelly SCOTT LAB BLOOD ORDERABLES Fin al Result Performing Organization Address [facility] de Phone Number [facility] [place] [address] * (ABNORMAL) Basic metabolic panel (06/08/2025 8:49 PM CDT) [facility] Sodium 140 135 - 145 mmol/L Potassium, pl 4.0 3.3 - 4.9 mmol/L [facility] Chloride 106 97 - 110 mmol/L [facility] CO2 24 22 - 32 mmol/L [facility] Anion gap 10 2 - 15 mmol/L [facility] BUN 10 6 - 25 mg/dL [facility] Creatinine 0.50(L) 0.60 - 1.10 mg/dL [facility] Glucose 107 70 - 199 mg/dL [facility] Comment: Interpretive Data Fasting glucose >/= 126 mg/dl is diagnostic for diabetes. Fasting is defined as no caloric intake for at least 8 hours. Fasting glucose between 100 mg/dl to 125 mg/dl is diagnostic of prediabetes. In a patient with classic symptoms of hyperglycemia or hyperglycemic crisis, a random glucose >/= 200 mg/dl is diagnostic for diabetes. In the absence of unequivocal hyperglycemia, results should be confirmed by repeat testing. The classification and Diagnosis of Diabetes Diabetes Care 2021; 46: S19-S40. Current interpretive data was last revised 2022. Calcium 8.6 8.5 - 10.3 mg/dL [facility] Blood 06/08/2025 8:49 PM CDT 06/08/2025 9:04 PM CDT Kelly SCOTT LAB BLOOD ORDERABLES Fin al Result Performing Organization Address [facility] Co de Phone Number [facility] [place] [address] * POCT glucose (06/08/2025 8:04 PM CDT) Glucose, POC 77 70 - 199 mg/dL Blood 06/08/2025 8:04 PM CDT 06/08/2025 8:04 PM CDT Dari Bojorquez MD LAB POCT ORDERABLES - DEVICE Final Result Performing Organization Address [facility] Co de Phone Number [facility] [place] [address] * POCT glucose (06/08/2025 6:59 PM CDT) Glucose, POC 132 70 - 199 mg/dL Blood 06/08/2025 6:5 9 PM CDT 06/08/2025 6:59 PM CDT Dari Bojorquez MD LAB POCT ORDERABLES - DEVICE Final Result Performing Organization Address [facility] de Phone Number [facility] [place] [address] * POCT glucose (06/08/2025 6:00 PM CDT) Glucose, POC 125 70 - 199 mg/dL Blood 06/08/2025 6:00 PM CDT 06/08/2025 6:00 PM CDT Dari Bojorquez MD LAB POCT ORDERABLES - DEVICE Final Result Performing Organization Address [facility] de Phone Number [facility] [place] [address] * POCT glucose (06/08/2025 4:59 PM CDT) Glucose, POC 144 70 - 199 mg/dL Blood 06/08/2025 4:59 PM CDT 06/08/2025 4:59 PM CDT us Dair Bojorquez MD LAB POCT ORDERABLES - DEVICE Final Result Performing Organization Address [facility] de Phone Number [facility] [place] [address] * POCT glucose (06/08/2025 4:07 PM CDT) Glucose, POC 182 70 - 199 mg/dL Blood 06/08/2025 4:07 PM CDT 06/08/2025 4:07 PM CDT Dari Bojorquez MD LAB POCT ORDERABLES - DEVICE Final Result Performing Organization Address [facility] de Phone Number [facility] [place] [address] * (ABNORMAL) POCT glucose (06/08/2025 2:49 PM CDT) Glucose, POC 218(H) 70 - 199 mg/dL Blood 06/08/2025 2:49 PM CDT 06/08/2025 2:49 PM CDT Dari Bojorquez MD LAB POCT ORDERABLES - DEVICE Final Result Performing Organization Address [facility]/State/ZIP Co de Phone Number [facility] [place] [address] * POCT glucose (06/08/2025 12:50 PM CDT) Glucose, POC 139 70 - 199 mg/dL Blood 06/08/2025 12:5 0 PM CDT 06/08/2025 12:50 PM CDT us Dari Bojorquez MD LAB POCT ORDERABLES - DEVICE Final Result Performing Organization Address [facility] [place] [address] * POCT glucose (06/08/2025 10:57 AM CDT) Glucose, POC 149 70 - 199 mg/dL Blood 06/08/2025 10:5 7 AM CDT 06/08/2025 10:57 AM CDT us Dari Bojorquez MD LAB POCT ORDERABLES - DEVICE Final Result Performing Organization Address [facility]/ZIP Co de Phone Number [facility] [place] [address] * POCT glucose (06/08/2025 10:07 AM CDT) Glucose, POC 141 70 - 199 mg/dL Blood 06/08/2025 10:0 7 AM CDT 06/08/2025 10:07 AM CDT us Dari Bojorquez MD LAB POCT ORDERABLES - DEVICE Final Result [facility] [place] [address] * POCT glucose (06/08/2025 8:54 AM CDT) Glucose, POC 102 70 - 199 mg/dL Blood 06/08/2025 8:54 AM CDT 06/08/2025 8:54 AM CDT Dari Bojorquez MD LAB POCT ORDERABLES - DEVICE Final Result Performing Organization Address [facility] Co de Phone Number [facility] [place] [address] * POCT glucose (06/08/2025 7:59 AM CDT) Glucose, POC 104 70 - 199 mg/dL Blood 06/08/2025 7:59 AM CDT 06/08/2025 7:59 AM CDT us Dari Bojorquez MD LAB POCT ORDERABLES - DEVICE Final Result Performing Organization Address [facility] Co de Phone Number [facility] [place] [address] * POCT glucose (06/08/2025 6:58 AM CDT) Glucose, POC 123 70 - 199 mg/dL Blood 06/08/2025 6:58 AM CDT 06/08/2025 6:58 AM CDT Dari Bojorquez MD LAB POCT ORDERABLES - DEVICE Final Result Performing Organization Address [facility] Co de Phone Number [facility] [place] [address] * POCT glucose (06/08/2025 5:59 AM CDT) Glucose, POC 149 70 - 199 mg/dL Blood 06/08/2025 5:59 AM CDT 06/08/2025 5:59 AM CDT us Dari Bojorquez MD LAB POCT ORDERABLES - DEVICE Final Result Performing Organization Address [facility] Co de Phone Number [facility] Department [place] [address] * Critical Care (06/08/2025 5:57 AM CDT) Narrative Rajesh Jeffries MD - 06/08/2025 5:57 AM CDT Rajesh Jeffries MD 06/09/2025 5:58 AM Critical Care Performed by: Rajesh Jeffries MD Authorized by: Rajesh Jeffries MD CRITICAL CARE: Team: SICU BLUE Shift: AM Level of Billing: Subsequent Hospital Visit Level 3 My time spent with this patient was 25 minutes: Critical Provider Statement: I have seen and examined the patient on this day of service. I have reviewed and confirmed the history, physical exam, laboratory, and radiographic data as documented in the ICU note. I have reviewed and discussed my treatment plan with the patient's team and other medical/healthcare management consultant staff. This time was in addition to and separate from care provided by other practitioners on this day of service. us Rajesh Jeffries MD IN CLINIC/BEDSIDE ORDERABLE S Final Result * POCT glucose (06/08/2025 4:59 AM CDT) Glucose, POC 172 70 - 199 mg/dL Blood 06/08/2025 4:59 AM CDT 06/08/2025 4:59 AM CDT us Dari Bojorquez MD LAB POCT ORDERABLES - DEVICE Final Result Performing Organization Address [facility]/ZIP Co de Phone Number [facility] [place] [address] * POCT glucose (06/08/2025 3:59 AM CDT) Glucose, POC 194 70 - 199 mg/dL Blood 06/08/2025 3:59 AM CDT 06/08/2025 3:59 AM CDT us Dari Bojorquez MD LAB POCT ORDERABLES - DEVICE Final Result Performing Organization Address [facility] Co de Phone Number [facility] [place] [address] * POCT glucose (06/08/2025 3:03 AM CDT) Glucose, POC 174 70 - 199 mg/dL Blood 06/08/2025 3:03 AM CDT 06/08/2025 3:03 AM CDT Dari Bojorquez MD LAB POCT ORDERABLES - DEVICE Final Result Performing Organization Address [facility] de Phone Number [facility] [place] [address] * (ABNORMAL) POCT glucose (06/08/2025 2:04 AM CDT) Glucose, POC 244(H) 70 - 199 mg/dL Blood 06/08/2025 2:04 AM CDT 06/08/2025 2:04 AM CDT Dari Bojorquez MD LAB POCT ORDERABLES - DEVICE Final Result Performing Organization Address [facility] [place] [address] * (ABNORMAL) POCT glucose (06/08/2025 12:57 AM CDT) Glucose, POC 221(H) 70 - 199 mg/dL Blood 06/08/2025 12:5 7 AM CDT 06/08/2025 12:57 AM CDT Dari Bojorquez MD LAB POCT ORDERABLES - DEVICE Final Result Performing Organization Address [facility] Co de Phone Number [facility] [place] [address] * (ABNORMAL) POCT glucose (06/08/2025 12:04 AM CDT) Glucose, POC 243(H) 70 - 199 mg/dL Comment:Glu2: RN/MD Notified Glucose comment 1 Glu2: RN/MD Notified [facility] Blood 06/08/2025 12:0 4 AM CDT 06/08/2025 12:04 AM CDT us Dari Bojorquez MD LAB POCT ORDERABLES - DEVICE Final Result Performing Organization Address [facility] Co de Phone Number [facility] [place] [address] * POCT glucose (06/07/2025 11:06 PM CDT) Glucose, POC 186 70 - 199 mg/dL Blood 06/07/2025 11:0 6 PM CDT 06/07/2025 11:06 PM CDT us Dari Bojorquez MD LAB POCT ORDERABLES - DEVICE Final Result Performing Organization Address [facility] Co de Phone Number [facility] [place] [address] * (ABNORMAL) POCT glucose (06/07/2025 10:04 PM CDT) Glucose, POC 205(H) 70 - 199 mg/dL Blood 06/07/2025 10:0 4 PM CDT 06/07/2025 10:04 PM CDT us Dari Bojorquez MD LAB POCT ORDERABLES - DEVICE Final Result [facility] [place] [address] * POCT glucose (06/07/2025 9:01 PM CDT) Glucose, POC 140 70 - 199 mg/dL Blood 06/07/2025 9:01 PM CDT 06/07/2025 9:01 PM CDT us Dari Bojorquez MD LAB POCT ORDERABLES - DEVICE Final Result Performing Organization Address [facility] HEALTH CARE SERVICES Co de Phone Number [facility] [place] [address] * eGFR (06/07/2025 8:02 PM CDT) eGFR >90 >=60 mL/min/1. 73 m2 Comment: Interpretive Data Reference Interval Normal >/= 90 mL/min/1.73m2 Mildly decreased* 60 - 89 mL/min/1.73m2 Mildly to moderately decreased 45 - 59 mL/min/1.73m2 Moderately to severely decreased 30 - 44 mL/min/1.73m2 Severely decreased 15 - 29 mL/min/1.73m2 Kidney Failure < 15 mL/min/1.73m2 *Relative to young adult level Estimated glomerular filtration rate is determined by the 2020 CKD-EPI equation recommended by the National Kidney Foundation (A Unifying Approach to GFR Estimation: Recommendations of the NKF-ASK Task Force on Reassessing the Inclusion of Race in Diagnosing Kidney Disease, JASN 2020). The CKD-EPI equation should not be used for patients with unstable renal function and has not been validated in children and those over 70. Current interpretive data was last reviewed 2021. Blood 06/07/2025 8:02 PM CDT 06/07/2025 8:20 PM CDT us Kelly SCOTT LAB BLOOD ORDERABLES Fin al Result Performing Organization Address [facility] de Phone Number [facility] Department [place] [address] * (ABNORMAL) CBC without differential (06/07/2025 8:02 PM CDT) Pathologist [facility] WBC 24.89(H) 3.80 - 9.90 K/cumm Hgb 11.6(L) 11.9 - 15.5 g/dL [facility] Hct 35.9 35.6 - 45.5 % [facility] Plt 444(H) 150 - 400 K/cumm [facility] MPV 9.5 9.1 - 12.3 fL [facility] RBC 4.12 3.90 - 5.20 M/cumm [facility] MCV 87.1 81.3 - 96.4 fL [facility] MCH 28.2 27.1 - 33.3 pg [facility] MCHC 32.3 32.3 - 35.7 g/dL [facility] RDW CV 14.5 11.1 - 14.9 % [facility] RDW SD 45.8 35.7 - 48.1 fL [facility] NRBC abs 0.07(H) 0.00 - 0.01 K/cumm [facility] Blood 06/07/2025 8:02 PM CDT 06/07/2025 8:20 PM CDT Kelly SCOTT LAB BLOOD ORDERABLES Fin al Result Performing Organization Address [facility] de Phone Number [facility] Department [place] [address] * Phosphorus (06/07/2025 8:02 PM CDT) Pathologist [facility] Phosphorus, pl 4.1 2.3 - 4.5 mg/dL Blood 06/07/2025 8:02 PM CDT 06/07/2025 8:14 PM CDT Kelly SCOTT LAB BLOOD ORDERABLES Fin al Result Performing Organization Address [facility] Co de Phone Number [facility] Department [place] [address] * Magnesium (06/07/2025 8:02 PM CDT) Magnesium 2.2 1.4 - 2.5 mg/dL Blood 06/07/2025 8:02 PM CDT 06/07/2025 8:14 PM CDT Kelly Mendoza No PA LAB BLOOD ORDERABLES Fin al Result Performing Organization Address [facility] de Phone Number [facility] Department [place] [address] * (ABNORMAL) Lipid panel (06/07/2025 8:02 PM CDT) Cholesterol 99 30 - 199 mg/dL Comment: Interpretive Data Ages < or = 19 years Acceptable: <170 mg/dL Borderline high: 170-199 mg/dL High: >or= 200 mg/dL Ages > or = 20 years Desirable: <200 mg/dL Borderline high: 200-239 mg/dL High: >or= 240 mg/dL Literature References: 1. Expert Panel on Integrated Guidelines for Cardiovascular Health and Risk Reduction in Children and Adolescents. Pediatrics 2011;128:S213 2. NCEP Expert Panel. Circulation 2004;110:227 Current Interpretive Data was last revised on 2018. Triglycerides 153(H) <=149 mg/dL [facility] Comment: Interpretive Data Ages < or = 9 years Acceptable: <75 mg/dL Borderline high: 75-99 mg/dL High: >or= 100 mg/dL Ages 10 to 20 years Acceptable: <90 mg/dL Borderline high: 90-129 mg/dL High: >or= 130 mg/dL Ages > or = 20 years Desirable: <150 mg/dL Borderline high: 150-199 mg/dL High: 200-499 mg/dL Very high: >or= 499 mg/dL Literature References: 1. Expert Panel on Integrated Guidelines for Cardiovascular Health and Risk Reduction in Children and Adolescents. Pediatrics 2011;128:S213 2. NCEP Expert Panel. Circulation 2004;110:227 Current Interpretive Data was last revised on 2018. HDL 33(L) >=40 mg/dL [facility] Comment: Interpretive Data Ages < or = 19 years Acceptable: >45 mg/dL Borderline low: 40-45 mg/dL Low: <40 mg/dL Ages > or = 20 years Desirable: >or= 60 mg/dL Low: <40 mg/dL Literature References: 1. Expert Panel on Integrated Guidelines for Cardiovascular Health and Risk Reduction in Children and Adolescents. Pediatrics 2011;128:S213 2. NCEP Expert Panel. Circulation 2004;110:227 Current Interpretive Data was last revised on 2018. LDL, calculated 40 <=129 mg/dL [facility] Comment: Interpretive Data Ages < or = 19 years Acceptable: <110 mg/dL Borderline high: 110-129 mg/dL High: >or= 130 mg/dL Ages > or = 20 years Optimal: <100 mg/dL Near optimal: 100-129 mg/dL Borderline high: 130-159 mg/dL High: >160 mg/dL Calculated using the Jean LDL-C estimating equation. This equation was implemented on 2024. Prior to this date LDL-C was estimated using the Friedewald equation. Literature References: 1. Expert Panel on Integrated Guidelines for Cardiovascular Health and Risk Reduction in Children and Adolescents. Pediatrics 2011;128:S213 2. NCEP Expert Panel. Circulation 2004;110:227 3. Jean Deal et al. PAULA Cardiol. 2019February 15;5(5):540-548. doi: [email or web address] Current Interpretive Data was last revised on 2024. Non-HDL Cholesterol 66 mg/dL [facility] Comment: Interpretive Data Ages < or = 19 years Acceptable: <120 mg/dL Borderline high: 120-144 mg/dL High: >145 mg/dL Ages > or = 20 years When triglycerides are >200 mg/dL, Non-HDL cholesterol is a secondary target of therapy with treatment goals that are 30 mg/dL greater than the LDL cholesterol target. Literature References: 1. Expert Panel on Integrated Guidelines for Cardiovascular Health and Risk Reduction in Children and Adolescents. Pediatrics 2011;128:S213 2. NCEP Expert Panel. Circulation 2004;110:227 Current Interpretive Data was last revised on 2018. Chol/HDL ratio 3 [facility] Blood 06/07/2025 8:02 PM CDT 06/07/2025 8:14 PM CDT us Dari Bojorquez MD LAB BLOOD ORDERABLES Final Result [facility] Department [place] [address] * (ABNORMAL) Basic metabolic panel (06/07/2025 8:02 PM CDT) Sodium 144 135 - 145 mmol/L Potassium, pl 4.3 3.3 - 4.9 mmol/L [facility] Chloride 109 97 - 110 mmol/L [facility] CO2 26 22 - 32 mmol/L [facility] Anion gap 9 2 - 15 mmol/L [facility] BUN 8 6 - 25 mg/dL [facility] Creatinine 0.52(L) 0.60 - 1.10 mg/dL [facility] Glucose 127 70 - 199 mg/dL [facility] Comment: Interpretive Data Fasting glucose >/= 126 mg/dl is diagnostic for diabetes. Fasting is defined as no caloric intake for at least 8 hours. Fasting glucose between 100 mg/dl to 125 mg/dl is diagnostic of prediabetes. In a patient with classic symptoms of hyperglycemia or hyperglycemic crisis, a random glucose >/= 200 mg/dl is diagnostic for diabetes. In the absence of unequivocal hyperglycemia, results should be confirmed by repeat testing. The classification and Diagnosis of Diabetes Diabetes Care 2021; 46: S19-S40. Current interpretive data was last revised 2022. Calcium 8.7 8.5 - 10.3 mg/dL [facility] Blood 06/07/2025 8:02 PM CDT 06/07/2025 8:14 PM CDT us Kelly SCOTT LAB BLOOD ORDERABLES Fin al Result [facility] Department [place] [address] * Critical Care (06/07/2025 7:41 PM CDT) Narrative Joana Cuellar MD - 06/07/2025 7:41 PM CDT Joana Cuellar MD 06/08/2025 6:14 AM Critical Care Performed by: Joana Cuellar MD Authorized by: Joana Cuellar MD CRITICAL CARE: Team: SICU BLUE Shift: PM Level of Billing: Critical Care My time spent with this patient was 30 minutes: Critical Provider Statement: I have seen and examined the patient on this day of service. I have reviewed and confirmed the history, physical exam, laboratory and radiologic data as documented in the signed ICU note. I have reviewed and discussed my treatment plan with the ICU team and other medical/healthcare management consultant staff, making frequent assessments and decisions regarding this patient's complex medical care. Critical Care time was exclusive of time spent performing separately billed procedures, treating other patients, and teaching. This time was in addition to and separate from critical care provided by other practitioners in my group on this day of service. Critical Care was necessary to treat or prevent imminent or life-threatening deterioration of the following conditions: Acute pain/acute postoperative pain Necrotizing soft tissue infection This time was spent by me doing the following: Serial laboratory checks, Resuscitation with fluids and Obtaining peripheral venous access or blood draws Acute pain control Review of prior or current culture/gram stain results Preparation for emergent procedure/operating room I spent time discussing the management of this critically ill patient with consultants and the medical staff and I spent time reviewing and interpreting data from bedside monitors, laboratory results, and imaging us Joana Cuellar MD IN CLINIC/BEDSIDE ORDERABLES F inal Result * POCT glucose (06/07/2025 7:33 PM CDT) Glucose, POC 108 70 - 199 mg/dL Blood 06/07/2025 7:33 PM CDT 06/07/2025 7:33 PM CDT us Dari Bojorquez MD LAB POCT ORDERABLES - DEVICE Final Result Performing Organization Address [facility] Co de Phone Number [facility] [place] [address] * POCT glucose (06/07/2025 6:52 PM CDT) Glucose, POC 107 70 - 199 mg/dL Blood 06/07/2025 6:52 PM CDT 06/07/2025 6:52 PM CDT Dari Bojorquez MD LAB POCT ORDERABLES - DEVICE Final Result Performing Organization Address [facility] de Phone Number [facility] [place] [address] * [place] AN ELECTIVE ENDOTRACHEAL AIRWAY, [place] 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 (06/07/2025 5:49 PM CDT) Narrative Radhika Cage CRNA - 06/07/2025 5:49 PM CDT Radhika Cage CRNA 06/07/2025 5:49 PM Airway Patient location: OR Urgency: elective Indications for airway management: anesthesia and airway protection Difficult airway: no Staff: Supervising provider: Dayana Dias MD Placed by: GRILL CHEF: Radhika Cage CRNA Emergent airway documentation: Risks and benefits discussed: yes Consent obtained: yes Consent given by: patient Airway prep: Preoxygenated: yes Patient position: sniffing MILS maintained throughout: yes Mask difficulty assessment: 1 - vent by mask Spontaneous ventilation during airway: absent Sedation level during airway: GA Final airway details: Final airway type: endotracheal airway Tube type: ETT ETT size: 7.0 mm Cuffed: yes Technique used for successful ETT placement: video laryngoscopy Devices/Methods used in placement: stylet Insertion site: oral Blade type: Jacklyn Video blade type: Moore Blade size: 3 Cormack-Lehane (video): grade I - full view of glottis Initial cuff pressure: 27 cm H2O Cuff volume: 7 mL Cuff inflated with: air ETT to teeth: 22 cm Placement verified by: auscultation and CO2 detection Airway secured with: silk tape Number of attempts: 1 Planned trial extubation: yes Dayana Dias MD ANESTHESIA ORD ERABLES Final Result * POCT glucose (06/07/2025 4:55 PM CDT) Glucose, POC 142 70 - 199 mg/dL Blood 06/07/2025 4:55 PM CDT 06/07/2025 4:55 PM CDT Dari Bojorquez MD LAB POCT ORDERABLES - DEVICE Final Result Performing Organization Address [facility] de Phone Number [facility] [place] [address] * POCT glucose (06/07/2025 4:15 PM CDT) Glucose, POC 133 70 - 199 mg/dL Blood 06/07/2025 4:15 PM CDT 06/07/2025 4:15 PM CDT Dari Bojorquez MD LAB POCT ORDERABLES - DEVICE Final Result Performing Organization Address [facility] de Phone Number [facility] [place] [address] * POCT glucose (06/07/2025 3:03 PM CDT) Glucose, POC 156 70 - 199 mg/dL Blood 06/07/2025 3:03 PM CDT 06/07/2025 3:03 PM CDT Dari Bojorquez MD LAB POCT ORDERABLES - DEVICE Final Result Performing Organization Address [facility] Co de Phone Number [facility] [place] [address] * POCT glucose (06/07/2025 2:24 PM CDT) Glucose, POC 170 70 - 199 mg/dL Blood 06/07/2025 2:24 PM CDT 06/07/2025 2:24 PM CDT Dari Bojorquez MD LAB POCT ORDERABLES - DEVICE Final Result Performing Organization Address [facility] Co de Phone Number [facility] Department [place] [address] * POCT glucose (06/07/2025 1:11 PM CDT) Glucose, POC 182 70 - 199 mg/dL Blood 06/07/2025 1:11 PM CDT 06/07/2025 1:11 PM CDT Dari Bojorquez MD LAB POCT ORDERABLES - DEVICE Final Result Performing Organization Address [facility] de Phone Number [facility] [place] [place] [address] * CT Pelvis W Contrast (06/07/2025 12:51 PM CDT) Anatomical Region Laterality Modality Body N/A Computed Tomogra phy 06/07/2025 12:5 8 PM CDT Impressions 06/07/2025 1:10 PM CDT Mildly improved subcutaneous soft tissue gas and stranding in the right groin region likely related to necrotizing fasciitis status post debridement. Dictated by: Yessy Reynolds M.D. The radiology attending physician has personally reviewed this study, and had reviewed and/or edited this written report and agrees with it. Electronically signed by: Carmen Thornton M.D. Narrative 06/07/2025 1:10 PM CDT EXAMINATION: Computed tomography of the pelvis with intravenous contrast HISTORY: Status post debridement of groin necrotizing fasciitis TECHNIQUE: Transaxial computed tomographic images of the pelvis were obtained with intravenous contrast according to the standard protocol after the uneventful administration of 93 mL Opti-Ray 350 intravenous contrast. COMPARISON: CT 06/02/2025 FINDINGS: Noted are subcutaneous soft tissue gas and stranding in the right groin region status post debridement likely related to mildly improved necrotizing fasciitis. No organized fluid collections to suggest abscess formation. A Castrejon catheter is noted within a decompressed bladder. Normal appearance of pelvic organs. Procedure Note Carmen Thornton MD - 06/07/2025 EXAMINATION: Computed tomography of the pelvis with intravenous contrast HISTORY: Status post debridement of groin necrotizing fasciitis TECHNIQUE: Transaxial computed tomographic images of the pelvis were obtained with intravenous contrast according to the standard protocol after the uneventful administration of 93 mL Opti-Ray 350 intravenous contrast. COMPARISON: CT 06/02/2025 FINDINGS: Noted are subcutaneous soft tissue gas and stranding in the right groin region status post debridement likely related to mildly improved necrotizing fasciitis. No organized fluid collections to suggest abscess formation. A Castrejon catheter is noted within a decompressed bladder. Normal appearance of pelvic organs. IMPRESSION: Mildly improved subcutaneous soft tissue gas and stranding in the right groin region likely related to necrotizing fasciitis status post debridement. Dictated by: Yessy Reynolds M.D. The radiology attending physician has personally reviewed this study, and had reviewed and/or edited this written report and agrees with it. Electronically signed by: Carmen Thornton M.D. Dari Bojorquez MD IMG CT PROCEDURES Fi nal Result * (ABNORMAL) POCT glucose (06/07/2025 12:06 PM CDT) Glucose, POC 209(H) 70 - 199 mg/dL Blood 06/07/2025 12:0 6 PM CDT 06/07/2025 12:06 PM CDT Dari Bojorquez MD LAB POCT ORDERABLES - DEVICE Final Result [facility] [place] [address] * (ABNORMAL) POCT glucose (06/07/2025 11:00 AM CDT) Glucose, POC 217(H) 70 - 199 mg/dL Blood 06/07/2025 11:0 0 AM CDT 06/07/2025 11:00 AM CDT Dari Bojorquez MD LAB POCT ORDERABLES - DEVICE Final Result Performing Organization Address [facility] [place] [address] * (ABNORMAL) POCT glucose (06/07/2025 9:54 AM CDT) Glucose, POC 201(H) 70 - 199 mg/dL Blood 06/07/2025 9:54 AM CDT 06/07/2025 9:54 AM CDT Dari Bojorquez MD LAB POCT ORDERABLES - DEVICE Final Result Performing Organization Address [facility] [place] [address] * Critical Care (06/07/2025 6:44 AM CDT) Narrative Rajesh Jeffries MD - 06/07/2025 6:44 AM CDT Rajesh Jeffries MD 06/08/2025 6:45 AM Critical Care Performed by: Rajesh Jeffries MD Authorized by: Rajesh Jeffries MD CRITICAL CARE: Team: SICU BLUE Shift: AM Level of Billing: Subsequent Hospital Visit Level 3 My time spent with this patient was 20 minutes: Critical Provider Statement: I have seen and examined the patient on this day of service. I have reviewed and confirmed the history, physical exam, laboratory, and radiographic data as documented in the ICU note. I have reviewed and discussed my treatment plan with the patient's team and other medical/healthcare management consultant staff. This time was in addition to and separate from care provided by other practitioners on this day of service. Rajesh Jeffries MD IN CLINIC/BEDSIDE ORDERABLE S Final Result * (ABNORMAL) POCT glucose (06/07/2025 1:59 AM CDT) Glucose, POC 200(H) 70 - 199 mg/dL Blood 06/07/2025 1:59 AM CDT 06/07/2025 1:59 AM CDT Result [facility] Dari Bojorquez MD LAB POCT ORDERABLES - DEVICE Final Result Performing Organization Address [facility] de Phone Number [facility] Department [place] [address] * (ABNORMAL) Vancomycin level trough Draw trough 30 minutes prior to 4th dose. (06/06/2025 10:29 PM CDT) [facility] Vancomycin trough 7.1(L) 10.0 - 20.0 mcg/mL Blood 06/06/2025 10:2 9 PM CDT 06/06/2025 10:35 PM CDT Narrative [facility] 06/06/2025 11:43 PM CDT Draw trough 30 minutes prior to 4th dose. Result [facility] Kelly SCOTT LAB BLOOD ORDERABLES Fin al Result Performing Organization Address [facility] Co de Phone Number [facility] Department [place] [address] * (ABNORMAL) POCT glucose (06/06/2025 8:51 PM CDT) Glucose, POC 283(H) 70 - 199 mg/dL Blood 06/06/2025 8:51 PM CDT 06/06/2025 8:51 PM CDT Dari Bojorquez MD LAB POCT ORDERABLES - DEVICE Final Result Performing Organization Address [facility] Co de Phone Number [facility] Department [place] [address] * eGFR (06/06/2025 7:52 PM CDT) Pathologist [facility] eGFR >90 >=60 mL/min/1. 73 m2 Comment: Interpretive Data Reference Interval Normal >/= 90 mL/min/1.73m2 Mildly decreased* 60 - 89 mL/min/1.73m2 Mildly to moderately decreased 45 - 59 mL/min/1.73m2 Moderately to severely decreased 30 - 44 mL/min/1.73m2 Severely decreased 15 - 29 mL/min/1.73m2 Kidney Failure < 15 mL/min/1.73m2 *Relative to young adult level Estimated glomerular filtration rate is determined by the 2020 CKD-EPI equation recommended by the National Kidney Foundation (A Unifying Approach to GFR Estimation: Recommendations of the NKF-ASK Task Force on Reassessing the Inclusion of Race in Diagnosing Kidney Disease, JASN 2020). The CKD-EPI equation should not be used for patients with unstable renal function and has not been validated in children and those over 70. Current interpretive data was last reviewed 2021. Blood 06/06/2025 7:52 PM CDT 06/06/2025 8:05 PM CDT Kelly SCOTT LAB BLOOD ORDERABLES Fin al Result Performing Organization Address [facility] Co de Phone Number [facility] Department [place] [address] * (ABNORMAL) CBC without differential (06/06/2025 7:52 PM CDT) [facility] WBC 21.30(H) 3.80 - 9.90 K/cumm Hgb 11.0(L) 11.9 - 15.5 g/dL [facility] Hct 33.4(L) 35.6 - 45.5 % [facility] Plt 416(H) 150 - 400 K/cumm [facility] MPV 10.0 9.1 - 12.3 fL [facility] RBC 3.90 3.90 - 5.20 M/cumm [facility] MCV 85.6 81.3 - 96.4 fL [facility] MCH 28.2 27.1 - 33.3 pg [facility] MCHC 32.9 32.3 - 35.7 g/dL [facility] RDW CV 14.0 11.1 - 14.9 % [facility] RDW SD 43.5 35.7 - 48.1 fL [facility] NRBC abs 0.06(H) 0.00 - 0.01 K/cumm [facility] Blood 06/06/2025 7:52 PM CDT 06/06/2025 8:05 PM CDT Kelly SCOTT LAB BLOOD ORDERABLES Fin al Result Performing Organization Address [facility] de Phone Number [facility] Department [place] [address] * (ABNORMAL) Phosphorus (06/06/2025 7:52 PM CDT) Pathologist [facility] Phosphorus, pl 2.2(L) 2.3 - 4.5 mg/dL Blood 06/06/2025 7:52 PM CDT 06/06/2025 8:05 PM CDT Kelly SCOTT LAB BLOOD ORDERABLES Fin al Result [facility] [place] [address] * Magnesium (06/06/2025 7:52 PM CDT) Pathologist [facility] Magnesium 1.7 1.4 - 2.5 mg/dL Blood 06/06/2025 7:52 PM CDT 06/06/2025 8:05 PM CDT Kelly SCOTT LAB BLOOD ORDERABLES Fin al Result [facility] Department [place] [address] * (ABNORMAL) Basic metabolic panel (06/06/2025 7:52 PM CDT) Sodium 139 135 - 145 mmol/L Potassium, pl 4.4 3.3 - 4.9 mmol/L [facility] Chloride 107 97 - 110 mmol/L [facility] CO2 22 22 - 32 mmol/L [facility] Anion gap 10 2 - 15 mmol/L [facility] BUN 11 6 - 25 mg/dL [facility] Creatinine 0.46(L) 0.60 - 1.10 mg/dL [facility] Glucose 283(H) 70 - 199 mg/dL [facility] Comment: Interpretive Data Fasting glucose >/= 126 mg/dl is diagnostic for diabetes. Fasting is defined as no caloric intake for at least 8 hours. Fasting glucose between 100 mg/dl to 125 mg/dl is diagnostic of prediabetes. In a patient with classic symptoms of hyperglycemia or hyperglycemic crisis, a random glucose >/= 200 mg/dl is diagnostic for diabetes. In the absence of unequivocal hyperglycemia, results should be confirmed by repeat testing. The classification and Diagnosis of Diabetes Diabetes Care 202; 46: S19-S40. Current interpretive data was last revised 2022. Calcium 8.5 8.5 - 10.3 mg/dL [facility] Blood 06/06/2025 7:52 PM CDT 06/06/2025 8:05 PM CDT Kelly SCOTT LAB BLOOD ORDERABLES Fin al Result [facility] Department [place] [address] * (ABNORMAL) POCT glucose (06/06/2025 7:16 PM CDT) Glucose, POC 273(H) 70 - 199 mg/dL Comment:Glu2: RN/MD Notified Glucose comment 1 Glu2: RN/MD Notified VIKKI [facility] Blood 06/06/2025 7:16 PM CDT 06/06/2025 7:16 PM CDT us Dari Bojorquez MD LAB POCT ORDERABLES - DEVICE Final Result [facility] Department [place] [address] * Critical Care (06/06/2025 7:00 PM CDT) Narrative Joana Cuellar MD - 06/06/2025 7:00 PM CDT Joana Cuellar MD 06/07/2025 6:00 AM Critical Care Performed by: Joana Cuellar MD Authorized by: Joana Cuellar MD CRITICAL CARE: Team: SICU BLUE Shift: PM Level of Billing: Critical Care My time spent with this patient was 30 minutes: Critical Provider Statement: I have seen and examined the patient on this day of service. I have reviewed and confirmed the history, physical exam, laboratory and radiologic data as documented in the signed ICU note. I have reviewed and discussed my treatment plan with the ICU team and other medical/healthcare management consultant staff, making frequent assessments and decisions regarding this patient's complex medical care. Critical Care time was exclusive of time spent performing separately billed procedures, treating other patients, and teaching. This time was in addition to and separate from critical care provided by other practitioners in my group on this day of service. Critical Care was necessary to treat or prevent imminent or life-threatening deterioration of the following conditions: Acute pain/acute postoperative pain Hypo- or Hyperglycemia This time was spent by me doing the following: Serial bedside patient exams, Serial laboratory checks and Obtaining peripheral venous access or blood draws Administration of sedatives and psychotropic medications Glycemic control I spent time reviewing and interpreting data from bedside monitors, laboratory results, and imaging and I spent time discussing the management of this critically ill patient with consultants and the medical staff us Joana Cuellar MD IN CLINIC/BEDSIDE ORDERABLES F inal Result * Critical Care (06/06/2025 3:20 PM CDT) Narrative Rajesh Jeffries MD - 06/06/2025 3:20 PM CDT Rajesh Jeffries MD 06/06/2025 3:21 PM Critical Care Performed by: Rajesh Jeffries MD Authorized by: Rajesh Jeffries MD CRITICAL CARE: Team: SICU BLUE Shift: AM Level of Billing: Subsequent Hospital Visit Level 3 My time spent with this patient was 25 minutes: Critical Provider Statement: I have seen and examined the patient on this day of service. I have reviewed and confirmed the history, physical exam, laboratory, and radiographic data as documented in the ICU note. I have reviewed and discussed my treatment plan with the patient's team and other medical/healthcare management consultant staff. This time was in addition to and separate from care provided by other practitioners on this day of service. us Rajesh Jeffries MD IN CLINIC/BEDSIDE ORDERABLE S Final Result * (ABNORMAL) POCT glucose (06/06/2025 2:30 PM CDT) Glucose, POC 250(H) 70 - 199 mg/dL Blood 06/06/2025 2:30 PM CDT 06/06/2025 2:30 PM CDT Dari Bojorquez MD LAB POCT ORDERABLES - DEVICE Final Result [facility] Department [place] [address] * (ABNORMAL) POCT glucose (06/06/2025 11:30 AM CDT) Glucose, POC 278(H) 70 - 199 mg/dL Comment:Glu2: RN/ Notified Glucose comment 1 Glu2: RN/ Notified [facility] Blood 06/06/2025 11:3 0 AM CDT 06/06/2025 11:30 AM CDT Dari Bojorquez MD LAB POCT ORDERABLES - DEVICE Final Result Performing Organization Address [facility] [place] [address] * (ABNORMAL) POCT glucose (06/06/2025 7:25 AM CDT) Glucose, POC 257(H) 70 - 199 mg/dL Comment:Glu2: RN/MD Notified Glucose comment 1 Glu2: RN/MD Notified [facility] Blood 06/06/2025 7:25 AM CDT 06/06/2025 7:25 AM CDT us Dari Bojorquez MD LAB POCT ORDERABLES - DEVICE Final Result Performing Organization Address [facility] [place] [address] * (ABNORMAL) POCT glucose (06/06/2025 3:52 AM CDT) Glucose, POC 219(H) 70 - 199 mg/dL Blood 06/06/2025 3:52 AM CDT 06/06/2025 3:52 AM CDT us Dari Bojorquez MD LAB POCT ORDERABLES - DEVICE Final Result Performing Organization Address [facility] de Phone Number [facility] [place] [address] * (ABNORMAL) POCT glucose (06/06/2025 2:24 AM CDT) Glucose, POC 237(H) 70 - 199 mg/dL Blood 06/06/2025 2:24 AM CDT 06/06/2025 2:24 AM CDT us Dari Bojorquez MD LAB POCT ORDERABLES - DEVICE Final Result Performing Organization Address [facility] Co de Phone Number [facility] [place] [address] * (ABNORMAL) POCT glucose (06/05/2025 11:59 PM CDT) Glucose, POC 277(H) 70 - 199 mg/dL Blood 06/05/2025 11:5 9 PM CDT 06/05/2025 11:59 PM CDT us Dari Bojorquez MD LAB POCT ORDERABLES - DEVICE Final Result Performing Organization Address [facility] Co de Phone Number [facility] [place] [address] * (ABNORMAL) POCT glucose (06/05/2025 11:09 PM CDT) [facility] Glucose, POC 280(H) 70 - 199 mg/dL Comment:Glu2: RN/MD Notified Glucose comment 1 Glu2: RN/MD Notified [facility] Blood 06/05/2025 11:0 9 PM CDT 06/05/2025 11:09 PM CDT us Dari Bojorquez MD LAB POCT ORDERABLES - DEVICE Final Result Performing Organization Address [facility] de Phone Number [facility] [place] [address] * eGFR (06/05/2025 9:06 PM CDT) [facility] eGFR >90 >=60 mL/min/1. 73 m2 Comment: Interpretive Data Reference Interval Normal >/= 90 mL/min/1.73m2 Mildly decreased* 60 - 89 mL/min/1.73m2 Mildly to moderately decreased 45 - 59 mL/min/1.73m2 Moderately to severely decreased 30 - 44 mL/min/1.73m2 Severely decreased 15 - 29 mL/min/1.73m2 Kidney Failure < 15 mL/min/1.73m2 *Relative to young adult level Estimated glomerular filtration rate is determined by the 2020 CKD-EPI equation recommended by the National Kidney Foundation (A Unifying Approach to GFR Estimation: Recommendations of the NKF-ASK Task Force on Reassessing the Inclusion of Race in Diagnosing Kidney Disease, JASN 2020). The CKD-EPI equation should not be used for patients with unstable renal function and has not been validated in children and those over 70. Current interpretive data was last reviewed 2021. Blood 06/05/2025 9:06 PM CDT 06/05/2025 9:39 PM CDT us Kelly SCOTT LAB BLOOD ORDERABLES Fin al Result [facility] Department [place] [address] * (ABNORMAL) CBC without differential (06/05/2025 9:06 PM CDT) WBC 17.75(H) 3.80 - 9.90 K/cumm Hgb 11.5(L) 11.9 - 15.5 g/dL [facility] Hct 34.3(L) 35.6 - 45.5 % [facility] Plt 378 150 - 400 K/cumm [facility] MPV 10.4 9.1 - 12.3 fL [facility] RBC 4.05 3.90 - 5.20 M/cumm [facility] MCV 84.7 81.3 - 96.4 fL [facility] MCH 28.4 27.1 - 33.3 pg [facility] MCHC 33.5 32.3 - 35.7 g/dL [facility] RDW CV 14.3 11.1 - 14.9 % [facility] RDW SD 44.3 35.7 - 48.1 fL [facility] NRBC abs 0.03(H) 0.00 - 0.01 K/cumm [facility] Blood 06/05/2025 9:06 PM CDT 06/05/2025 9:40 PM CDT Kelly SCOTT LAB BLOOD ORDERABLES Fin al Result Performing Organization Address [facility] de Phone Number [facility] [place] [address] * Phosphorus (06/05/2025 9:06 PM CDT) Phosphorus, pl 2.6 2.3 - 4.5 mg/dL Blood 06/05/2025 9:06 PM CDT 06/05/2025 9:39 PM CDT Kelly SCOTT LAB BLOOD ORDERABLES Fin al Result Performing Organization Address [facility] [place] [address] * Magnesium (06/05/2025 9:06 PM CDT) Magnesium 2.1 1.4 - 2.5 mg/dL Blood 06/05/2025 9:06 PM CDT 06/05/2025 9:39 PM CDT Kelly SCOTT LAB BLOOD ORDERABLES Fin al Result Performing Organization Address [facility] Phone Number [facility] [place] [address] * (ABNORMAL) Hemoglobin A1c (06/05/2025 9:06 PM CDT) Hgb A1C 11.0(H) 4.0 - 5.6 % Estimated Average Glucose 269 mg/dL [facility] Comment: The ADA recommends reporting an estimated Average Glucose (eAG) with all Hemoglobin A1c results using the equation derived from a study of 507 normal and diabetic adults. Minority populations were underrepresented and children were not included. (Diabetes Care 2020; 43(S1): S66-S76). The eAG is not equivalent to a fasting glucose. Blood 06/05/2025 9:06 PM CDT 06/05/2025 9:40 PM CDT Kelly SCOTT LAB BLOOD ORDERABLES Fin al Result Performing Organization Address [facility] Co de Phone Number [facility] Department [place] [place] [address] * (ABNORMAL) Basic metabolic panel (06/05/2025 9:06 PM CDT) [facility] Sodium 137 135 - 145 mmol/L Potassium, pl 4.6 3.3 - 4.9 mmol/L [facility] Chloride 103 97 - 110 mmol/L [facility] CO2 23 22 - 32 mmol/L [facility] Anion gap 11 2 - 15 mmol/L [facility] BUN 15 6 - 25 mg/dL [facility] Creatinine 0.73 0.60 - 1.10 mg/dL [facility] Glucose 356(H) 70 - 199 mg/dL [facility] Comment: Interpretive Data Fasting glucose >/= 126 mg/dl is diagnostic for diabetes. Fasting is defined as no caloric intake for at least 8 hours. Fasting glucose between 100 mg/dl to 125 mg/dl is diagnostic of prediabetes. In a patient with classic symptoms of hyperglycemia or hyperglycemic crisis, a random glucose >/= 200 mg/dl is diagnostic for diabetes. In the absence of unequivocal hyperglycemia, results should be confirmed by repeat testing. The classification and Diagnosis of Diabetes Diabetes Care 2021; 46: S19-S40. Current interpretive data was last revised 2022. Calcium 8.4(L) 8.5 - 10.3 mg/dL [facility] Blood 06/05/2025 9:06 PM CDT 06/05/2025 9:39 PM CDT Kelly SCOTT LAB BLOOD ORDERABLES Fin al Result Performing Organization Address [facility] Co de Phone Number [facility] Department [place] [address] * (ABNORMAL) POCT glucose (06/05/2025 8:48 PM CDT) Glucose, POC 341(H) 70 - 199 mg/dL Blood 06/05/2025 8:48 PM CDT 06/05/2025 8:48 PM CDT us Dari Bojorquez MD LAB POCT ORDERABLES - DEVICE Final Result [facility] Department [place] [address] * Critical Care (06/05/2025 6:49 PM CDT) Narrative Joana Cuellar MD - 06/05/2025 6:49 PM CDT Joana Cuellar MD 06/06/2025 5:27 AM Critical Care Performed by: Joana Cuellar MD Authorized by: Joana Cuellar MD CRITICAL CARE: Team: SICU BLUE Shift: PM Level of Billing: Critical Care My time spent with this patient was 30 minutes: Critical Provider Statement: I have seen and examined the patient on this day of service. I have reviewed and confirmed the history, physical exam, laboratory and radiologic data as documented in the signed ICU note. I have reviewed and discussed my treatment plan with the ICU team and other medical/healthcare management consultant staff, making frequent assessments and decisions regarding this patient's complex medical care. Critical Care time was exclusive of time spent performing separately billed procedures, treating other patients, and teaching. This time was in addition to and separate from critical care provided by other practitioners in my group on this day of service. Critical Care was necessary to treat or prevent imminent or life-threatening deterioration of the following conditions: Acute pain/acute postoperative pain Hypo- or Hyperglycemia This time was spent by me doing the following: Serial laboratory checks, Serial bedside patient exams and Obtaining peripheral venous access or blood draws Acute pain control Glycemic control Review of prior or current culture/gram stain results I spent time reviewing and interpreting data from bedside monitors, laboratory results, and imaging and I spent time discussing the management of this critically ill patient with consultants and the medical staff us Joana Cuellar MD IN CLINIC/BEDSIDE ORDERABLES F inal Result * (ABNORMAL) POCT glucose (06/05/2025 6:33 PM CDT) [facility] Glucose, POC 255(H) 70 - 199 mg/dL Blood 06/05/2025 6:33 PM CDT 06/05/2025 6:33 PM CDT us Dari Bojorquez MD LAB POCT ORDERABLES - DEVICE Final Result [facility] Department [place] [address] * Critical Care (06/05/2025 5:01 PM CDT) Narrative Rajesh Jeffries MD - 06/05/2025 5:01 PM CDT Rajesh Jeffries MD 06/05/2025 5:01 PM Critical Care Performed by: Rajesh Jeffries MD Authorized by: Rajesh Jeffries MD CRITICAL CARE: Team: SICU BLUE Shift: AM Level of Billing: Critical Care My time spent with this patient was 35 minutes: Critical Provider Statement: I have seen and examined the patient on this day of service. I have reviewed and confirmed the history, physical exam, laboratory and radiologic data as documented in the signed ICU note. I have reviewed and discussed my treatment plan with the ICU team and other medical/healthcare management consultant staff, making frequent assessments and decisions regarding this patient's complex medical care. Critical Care time was exclusive of time spent performing separately billed procedures, treating other patients, and teaching. This time was in addition to and separate from critical care provided by other practitioners in my group on this day of service. Critical Care was necessary to treat or prevent imminent or life-threatening deterioration of the following conditions: us Rajesh Jeffries MD IN CLINIC/BEDSIDE ORDERABLE S Final Result * TRANSTHORACIC ECHO (TTE) COMPLETE W DOPPLER/CF W CONTRAST (06/05/2025 2:22 PM CDT) EF Mod BP 75 % CONS SCIMAGE Anatomical Region Laterality Modality Ultrasound 06/05/2025 1:34 PM CDT Narrative 06/05/2025 2:42 PM CDT [facility] Cardiac [place] [address] Transthoracic Echocardiographic Report Patient Name: DORIAN MONTIEL J : 1975 (49y 7m) Gender: F Study Date: 06/05/2025 13:34:27 Ht(Inch): 61 Wt(Lb): 313.94 BSA: 2.48 Tank Setter Helper: Iwona Couch RDCS Location: [id number] Order Provider: DARI BOJORQUEZ Heart Rate: 87 BMI: 59.31 BP: 120 / 79 Ref Provider: DARI BOJORQUEZ PROCEDURES: Echocardiographic Report: Transthoracic complete echo with strain imaging and contrast, 2D, spectral and tissue Doppler, color flow Doppler, M-mode. Contrast: Contrast Enhancement was Employed: After initial imaging due to sub- optimal quality related to co-morbidity defined by patient's body habitus, due to suboptimal image quality with inadequate visualization of at least 2 of 16 LV wall segments in any view after initial imaging. Perflutren contrast was administered using the volume necessary to obtain adequate images and. 1.1 ml Optison Administered, (1.9 ml wasted). Technically difficult study due to: Poor acoustic windows. INDICATIONS: Atrial fibrillation and Atrial flutter. CONCLUSIONS: 1. Normal left ventricular size based on volume index. Normal LV wall thickness. There is hyperdynamic left ventricular systolic function. The Ejection Fraction (Cintron's) is measured at 75 %. Unable to assess global longitudinal strain due to image quality. No left ventricular thrombus visualized. 2. There are no regional wall motion abnormalities. 3. Normal right ventricular size. Normal right ventricular systolic function. 4. Unable to determine PASP due to inadequate TR jet. 5. Normal Sinus rhythm was seen during the study. 6. No significant valvular pathology identified. ATTESTATION: I have personally reviewed and interpreted this study without fellow or resident. - DISCLAIMER: The study images and the final report will be retained in the patient chart by the Echo Laboratory for the legally required time period. This chart constitutes the legal record of any testing performed. FINDINGS: Left Ventricle: Normal left ventricular size based on volume index. Normal LV wall thickness. There is hyperdynamic left ventricular systolic function. The Ejection Fraction (Cintron's) is measured at 75 %. Unable to assess global longitudinal strain due to image quality. No left ventricular thrombus visualized. Regional Wall Motion: There are no regional wall motion abnormalities. Right Ventricle: Normal right ventricular size. Normal right ventricular systolic function. Left Atrium: The left atrium is normal in size. Right Atrium: The right atrium is normal in size. Mitral Valve: Normal mitral valve structure. No mitral regurgitation. No stenosis present. Aortic Valve: Normal trileaflet aortic valve. No aortic regurgitation. No aortic valve stenosis. The mean transaortic gradient is 5 mmHg. The aortic valve area by the continuity equation (using VTI) is 2.57 cm2. Aortic valve dimensionless index is 0.89. Tricuspid Valve: Normal tricuspid valve structure. No tricuspid regurgitation. No tricuspid valve stenosis. Pulmonic Valve: The pulmonic valve is not well visualized due to poor acoustic windows. No pulmonic regurgitation. No pulmonic valve stenosis present. Pericardium: The pericardium is not well visualized due to poor acoustic windows. Aorta: Normal aortic root size at sinuses of Valsalva. Normal aortic root size when indexed. The ascending aorta is normal in size when indexed. IVC: The IVC was <2.1 cm and collapsibility >50%. (est. RA pressure 0-5 mmHg). PASP: Unable to determine PASP due to inadequate TR jet. Rhythm: Normal Sinus rhythm was seen during the study. MEASUREMENTS: 2D/MM Value Range Doppler Value Range LVIDd 2D 4.86 cm [ 3.80 - 5.20 ] AV Peak Betito 1.4 m/s [ 1.0 - 1.7 ] LVIDs 2D 2.62 cm [ 2.20 - 3.50 ] AV Peak PG 7.84 mmHg IVSd 2D 0.91 cm [ 0.60 - 0.90 ] AV Mean PG 5 mmHg LVPWd 2D 0.88 cm [ 0.60 - 0.90 ] AV VTI 25.9 cm LV Thickness Ratio 1.0 LVOT Peak Betito 1.2 m/s [ 0.7 - 1.1 ] LV FS 2D 46.07 % [ 27.00 - 45.00 ] LVOT Peak PG 5.76 mmHg LV Mass 2D 153.44 g LVOT Mean PG 5 mmHg LV Mass Index 2D 61.98 g/m2 LVOT VTI 23.0 cm RWT 0.36 LVOT Diam 1.92 cm EDV Mod BP 116.72 ml [ 46.00 - 106.00 ] LIAN VTI 2.57 cm2 LV EDV Index 47.15 ml/m2 LVOT/AV VTI 0.89 - Dimensionless index (DVI) ESV Mod BP 28.83 ml [ 14.00 - 42.00 ] MV E Peak Betito 1.0 m/s [ 0.6 - 1.3 ] EF Mod BP 75 % [ 54 - 74 ] MV A Peak Betito 0.6 m/s [ 1.0 - 1.2 ] LA Length 4C 5.21 cm MV E/A 1.6 ratio [ 0.8 - 1.5 ] LA Length 2C 4.85 cm MV Decel Time 197.09 msec [ 104.00 - 258.00 ] LA Volume BP 31.05 ml Med E` Betito 10.3 cm/sec [ 8.0 - 25.0 ] LA Volume Index 12.54 ml/m2 [ 16.00 - 34.00 ] Lat E` Betito 10.6 cm/sec [ 10.0 - 25.0 ] RV Base Dimen 2D 3.9 cm [ 2.5 - 4.2 ] Average E/E` 9.57 TAPSE 2.59 cm [ 1.71 - 5.00 ] RV S` 19.83 cm/sec RA Volume 20.38 ml PV Peak Betito 0.8 m/s [ 0.4 - 0.8 ] RA Volume Index 8.23 ml/m2 PV Peak PG 2.56 mmHg IVC Diam 1.62 cm IVC Collapse 67 % AoR Diam 2D 2.78 cm [ 2.70 - 3.70 ] Ao Root Index 1.12 cm/m2 [ 1.00 - 2.00 ] Asc Ao Diam 2D 2.77 cm Asc Ao Index 1.12 cm/m2 Electronically Signed By: Alonso Russell MD 06/05/2025 14:41:36 CDT Procedure Note Alonso Russell MD - 06/05/2025 [facility] Cardiac Diagnostic [place] [address] Transthoracic Echocardiographic Report Patient Name: DORIAN MONTIEL J : 1975 (49y 7m) Gender: F Study Date: 06/05/2025 13:34:27 Ht(Inch): 61 Wt(Lb): 313.94 BSA: 2.48 Tank Setter Helper: Iwona Couch RDCS Location: [id number] Order Provider:DARI BOJORQUEZ Heart Rate: 87 BMI: 59.31 BP: 120 / 79 Ref Provider: DARI BOJORQUEZ PROCEDURES: Echocardiographic Report: Transthoracic complete echo with strain imagingand contrast, 2D, spectral and tissue Doppler, color flow Doppler, M-mode. Contrast: Contrast Enhancement was Employed: After initial imaging due tosub- optimal quality related to co-morbidity defined by patient's body habitus, due tosuboptimal image quality with inadequate visualization of at least 2 of 16 LV wallsegments in any view after initial imaging. Perflutren contrast was administered using thevolume necessary to obtain adequate images and. 1.1 ml Optison Administered, (1.9ml wasted). Technically difficult study due to: Poor acoustic windows. INDICATIONS: Atrial fibrillation and Atrial flutter. CONCLUSIONS: 1. Normal left ventricular size based on volume index. Normal LV wallthickness. There is hyperdynamic left ventricular systolic function. The Ejection Fraction(Cintron's) is measured at 75 %. Unable to assess global longitudinal strain due to imagequality. No left ventricular thrombus visualized. 2. There are no regional wall motion abnormalities. 3. Normal right ventricular size. Normal right ventricular systolicfunction. 4. Unable to determine PASP due to inadequate TR jet. 5. Normal Sinus rhythm was seen during the study. 6. No significant valvular pathology identified. ATTESTATION: I have personally reviewed and interpreted this study without fellow orresident. - DISCLAIMER: The study images and the final report will be retained in the patientchart by the Echo Laboratory for the legally required time period. This chart constitutesthe legal record of any testing performed. FINDINGS: Left Ventricle: Normal left ventricular size based on volume index. NormalLV wall thickness. There is hyperdynamic left ventricular systolic function. TheEjection Fraction (Cintron's) is measured at 75 %. Unable to assess globallongitudinal strain due to image quality. No left ventricular thrombus visualized. Regional Wall Motion: There are no regional wall motion abnormalities. Right Ventricle: Normal right ventricular size. Normal right ventricularsystolic function. Left Atrium: The left atrium is normal in size. Right Atrium: The right atrium is normal in size. Mitral Valve: Normal mitral valve structure. No mitral regurgitation. Nostenosis present. Aortic Valve: Normal trileaflet aortic valve. No aortic regurgitation. Noaortic valve stenosis. The mean transaortic gradient is 5 mmHg. The aortic valve areaby the continuity equation (using VTI) is 2.57 cm2. Aortic valve dimensionlessindex is 0.89. Tricuspid Valve: Normal tricuspid valve structure. No tricuspidregurgitation. No tricuspid valve stenosis. Pulmonic Valve: The pulmonic valve is not well visualized due to pooracoustic windows. No pulmonic regurgitation. No pulmonic valve stenosis present. Pericardium: The pericardium is not well visualized due to poor acousticwindows. Aorta: Normal aortic root size at sinuses of Valsalva. Normal aortic rootsize when indexed. The ascending aorta is normal in size when indexed. IVC: The IVC was <2.1 cm and collapsibility >50%. (est. RA pressure 0-5mmHg). PASP: Unable to determine PASP due to inadequate TR jet. Rhythm: Normal Sinus rhythm was seen during the study. MEASUREMENTS: 2D/MM Value Range DopplerValue Range LVIDd 2D 4.86 cm [ 3.80 - 5.20 ] AV Peak Vel1.4 m/s [ 1.0 - 1.7 ] LVIDs 2D 2.62 cm [ 2.20 - 3.50 ] AV Peak PG7.84 mmHg IVSd 2D 0.91 cm [ 0.60 - 0.90 ] AV Mean PG5 mmHg LVPWd 2D 0.88 cm [ 0.60 - 0.90 ] AV VTI25.9 cm LV Thickness Ratio 1.0 LVOT Peak Vel1.2 m/s [ 0.7 - 1.1 ] LV FS 2D 46.07 % [ 27.00 - 45.00 ] LVOT Peak PG5.76 mmHg LV Mass 2D 153.44 g LVOT Mean PG5 mmHg LV Mass Index 2D 61.98 g/m2 LVOT VTI23.0 cm RWT 0.36 LVOT Diam1.92 cm EDV Mod BP 116.72 ml [ 46.00 - 106.00 ] LIAN VTI2.57 cm2 LV EDV Index 47.15 ml/m2 LVOT/AV VTI0.89 - Dimensionless index (DVI) ESV Mod BP 28.83 ml [ 14.00 - 42.00 ] MV E Peak Vel1.0 m/s [ 0.6 - 1.3 ] EF Mod BP 75 % [ 54 - 74 ] MV A Peak Vel0.6 m/s [ 1.0 - 1.2 ] LA Length 4C 5.21 cm MV E/A1.6 ratio [ 0.8 - 1.5 ] LA Length 2C 4.85 cm MV Decel Alor785.09 msec [ 104.00 - 258.00 ] LA Volume BP 31.05 ml Med E` Vel10.3 cm/sec [ 8.0 - 25.0 ] LA Volume Index 12.54 ml/m2 [ 16.00 - 34.00 ] Lat E` Vel10.6 cm/sec [ 10.0 - 25.0 ] RV Base Dimen 2D 3.9 cm [ 2.5 - 4.2 ] Average E/E`9.57 TAPSE 2.59 cm [ 1.71 - 5.00 ] RV S`19.83 cm/sec RA Volume 20.38 ml PV Peak Vel0.8 m/s [ 0.4 - 0.8 ] RA Volume Index 8.23 ml/m2 PV Peak PG2.56 mmHg IVC Diam1.62 cm IVC Collapse 67 % AoR Diam 2D 2.78 cm [ 2.70 - 3.70 ] Ao Root Index 1.12 cm/m2 [ 1.00 - 2.00 ] Asc Ao Diam 2D2.77 cm Asc Ao Index1.12 cm/m2 Electronically Signed By: Alonso Russell MD 06/05/2025 14:41:36 CDT Dari Bojorquez MD CV ECHO PROCEDURES F inal Result * (ABNORMAL) POCT glucose (06/05/2025 1:19 PM CDT) Glucose, POC 212(H) 70 - 199 mg/dL Blood 06/05/2025 1:19 PM CDT 06/05/2025 1:19 PM CDT us Dari Bojorquez MD LAB POCT ORDERABLES - DEVICE Final Result [facility] [place] [address] * (ABNORMAL) POCT glucose (06/05/2025 12:55 PM CDT) Glucose, POC 203(H) 70 - 199 mg/dL Blood 06/05/2025 12:5 5 PM CDT 06/05/2025 12:55 PM CDT us Dari Bojorquez MD LAB POCT ORDERABLES - DEVICE Final Result Performing Organization Address [facility] de Phone Number [facility] [place] [address] * POCT glucose (06/05/2025 12:07 PM CDT) Glucose, POC 197 70 - 199 mg/dL Blood 06/05/2025 12:0 7 PM CDT 06/05/2025 12:07 PM CDT us Dari Bojorquez MD LAB POCT ORDERABLES - DEVICE Final Result Performing Organization Address [facility] de Phone Number [facility] [place] [address] * POCT glucose (06/05/2025 11:09 AM CDT) Glucose, POC 152 70 - 199 mg/dL Blood 06/05/2025 11:0 9 AM CDT 06/05/2025 11:09 AM CDT us Dari Bojorquez MD LAB POCT ORDERABLES - DEVICE Final Result Performing Organization Address [facility] de Phone Number [facility] [place] [address] * POCT glucose (06/05/2025 10:03 AM CDT) Glucose, POC 172 70 - 199 mg/dL Blood 06/05/2025 10:0 3 AM CDT 06/05/2025 10:03 AM CDT Dari Bojorquez MD LAB POCT ORDERABLES - DEVICE Final Result Performing Organization Address [facility] Co de Phone Number [facility] [place] [address] * POCT glucose (06/05/2025 8:55 AM CDT) Glucose, POC 137 70 - 199 mg/dL Blood 06/05/2025 8:55 AM CDT 06/05/2025 8:55 AM CDT us Dari Bojorquez MD LAB POCT ORDERABLES - DEVICE Final Result Performing Organization Address [facility] [place] [address] * POCT glucose (06/05/2025 8:03 AM CDT) Glucose, POC 110 70 - 199 mg/dL Blood 06/05/2025 8:03 AM CDT 06/05/2025 8:03 AM CDT us Dari Bojorquez MD LAB POCT ORDERABLES - DEVICE Final Result Performing Organization Address [facility] Co de Phone Number [facility] [place] [address] * POCT glucose (06/05/2025 7:26 AM CDT) Glucose, POC 134 70 - 199 mg/dL Blood 06/05/2025 7:26 AM CDT 06/05/2025 7:26 AM CDT Dari Bojorquez MD LAB POCT ORDERABLES - DEVICE Final Result Performing Organization Address [facility] Co de Phone Number [facility] [place] [address] * POCT glucose (06/05/2025 6:10 AM CDT) Glucose, POC 128 70 - 199 mg/dL Blood 06/05/2025 6:10 AM CDT 06/05/2025 6:10 AM CDT Dari Bojorquez MD LAB POCT ORDERABLES - DEVICE Final Result Performing Organization Address [facility] Co de Phone Number [facility] [place] [address] * POCT glucose (06/05/2025 4:59 AM CDT) Glucose, POC 99 70 - 199 mg/dL Blood 06/05/2025 4:59 AM CDT 06/05/2025 4:59 AM CDT us Dari Bojorquez MD LAB POCT ORDERABLES - DEVICE Final Result Performing Organization Address [facility] Co de Phone Number [facility] [place] [address] * POCT glucose (06/05/2025 4:02 AM CDT) Glucose, POC 98 70 - 199 mg/dL Blood 06/05/2025 4:02 AM CDT 06/05/2025 4:02 AM CDT Dari Bojorquez MD LAB POCT ORDERABLES - DEVICE Final Result Performing Organization Address [facility] Co de Phone Number [facility] [place] [address] * POCT glucose (06/05/2025 2:08 AM CDT) Glucose, POC 108 70 - 199 mg/dL Blood 06/05/2025 2:08 AM CDT 06/05/2025 2:08 AM CDT Dari Bojorquez MD LAB POCT ORDERABLES - DEVICE Final Result Performing Organization Address [facility] Co de Phone Number [facility] [place] [address] * POCT glucose (06/05/2025 12:08 AM CDT) Glucose, POC 121 70 - 199 mg/dL Blood 06/05/2025 12:0 8 AM CDT 06/05/2025 12:08 AM CDT us Dari Bojorquez MD LAB POCT ORDERABLES - DEVICE Final Result Performing Organization Address [facility] de Phone Number [facility] [place] [address] * POCT glucose (06/04/2025 10:53 PM CDT) Glucose, POC 114 70 - 199 mg/dL Blood 06/04/2025 10:5 3 PM CDT 06/04/2025 10:53 PM CDT us Dari Bojorquez MD LAB POCT ORDERABLES - DEVICE Final Result Performing Organization Address [facility] [place] [address] * POCT glucose (06/04/2025 10:10 PM CDT) Glucose, POC 132 70 - 199 mg/dL Blood 06/04/2025 10:1 0 PM CDT 06/04/2025 10:10 PM CDT Dari Bojorquez MD LAB POCT ORDERABLES - DEVICE Final Result Performing Organization Address [facility] Co de Phone Number [facility] [place] [address] * eGFR (06/04/2025 9:35 PM CDT) [facility] eGFR >90 >=60 mL/min/1. 73 m2 Comment: Interpretive Data Reference Interval Normal >/= 90 mL/min/1.73m2 Mildly decreased* 60 - 89 mL/min/1.73m2 Mildly to moderately decreased 45 - 59 mL/min/1.73m2 Moderately to severely decreased 30 - 44 mL/min/1.73m2 Severely decreased 15 - 29 mL/min/1.73m2 Kidney Failure < 15 mL/min/1.73m2 *Relative to young adult level Estimated glomerular filtration rate is determined by the 2020 CKD-EPI equation recommended by the National Kidney Foundation (A Unifying Approach to GFR Estimation: Recommendations of the NKF-ASK Task Force on Reassessing the Inclusion of Race in Diagnosing Kidney Disease, JASN 2020). The CKD-EPI equation should not be used for patients with unstable renal function and has not been validated in children and those over 70. Current interpretive data was last reviewed 2021. Blood 06/04/2025 9:35 PM CDT 06/04/2025 10:47 PM CDT us Dari Bojorquez MD LAB BLOOD ORDERABLES Final Result Performing Organization Address [facility] Co de Phone Number [facility] Department [place] [address] * (ABNORMAL) CBC without differential (06/04/2025 9:35 PM CDT) [facility] WBC 23.38(H) 3.80 - 9.90 K/cumm Hgb 11.4(L) 11.9 - 15.5 g/dL [facility] Hct 33.4(L) 35.6 - 45.5 % [facility] Plt 360 150 - 400 K/cumm [facility] MPV 10.6 9.1 - 12.3 fL [facility] RBC 3.97 3.90 - 5.20 M/cumm [facility] MCV 84.1 81.3 - 96.4 fL [facility] MCH 28.7 27.1 - 33.3 pg [facility] MCHC 34.1 32.3 - 35.7 g/dL [facility] RDW CV 14.2 11.1 - 14.9 % [facility] RDW SD 43.8 35.7 - 48.1 fL [facility] NRBC abs 0.00 0.00 - 0.01 K/cumm [facility] Blood 06/04/2025 9:35 PM CDT 06/04/2025 10:47 PM CDT Dari Bojorquez MD LAB BLOOD ORDERABLES Final Result Performing Organization Address [facility]/ZIP Co de Phone Number [facility] Department [place] [address] * Phosphorus (06/04/2025 9:35 PM CDT) Phosphorus, pl 4.0 2.3 - 4.5 mg/dL Blood 06/04/2025 9:35 PM CDT 06/04/2025 10:47 PM CDT Dari Bojorquez MD LAB BLOOD ORDERABLES Final Result [facility] Department [place] [address] * Magnesium (06/04/2025 9:35 PM CDT) Magnesium 2.5 1.4 - 2.5 mg/dL Blood 06/04/2025 9:35 PM CDT 06/04/2025 10:47 PM CDT Dari Bojorquez MD LAB BLOOD ORDERABLES Final Result [facility] Department [place] [address] * (ABNORMAL) Basic metabolic panel (06/04/2025 9:35 PM CDT) Sodium 137 135 - 145 mmol/L Potassium, pl 4.5 3.3 - 4.9 mmol/L [facility] Chloride 104 97 - 110 mmol/L [facility] CO2 24 22 - 32 mmol/L [facility] Anion gap 9 2 - 15 mmol/L [facility] BUN 18 6 - 25 mg/dL [facility] Creatinine 0.59(L) 0.60 - 1.10 mg/dL [facility] Glucose 128 70 - 199 mg/dL [facility] Comment: Interpretive Data Fasting glucose >/= 126 mg/dl is diagnostic for diabetes. Fasting is defined as no caloric intake for at least 8 hours. Fasting glucose between 100 mg/dl to 125 mg/dl is diagnostic of prediabetes. In a patient with classic symptoms of hyperglycemia or hyperglycemic crisis, a random glucose >/= 200 mg/dl is diagnostic for diabetes. In the absence of unequivocal hyperglycemia, results should be confirmed by repeat testing. The classification and Diagnosis of Diabetes Diabetes Care 202; 46: S19-S40. Current interpretive data was last revised 2022. Calcium 8.7 8.5 - 10.3 mg/dL [facility] Blood 06/04/2025 9:35 PM CDT 06/04/2025 10:47 PM CDT us Dari Bojorquez MD LAB BLOOD ORDERABLES Final Result Performing Organization Address [facility]/ZIP Co de Phone Number [facility] Department [place] [address] * POCT glucose (06/04/2025 8:56 PM CDT) Glucose, POC 153 70 - 199 mg/dL Blood 06/04/2025 8:5 6 PM CDT 06/04/2025 8:56 PM CDT us Dari Bojorquez MD LAB POCT ORDERABLES - DEVICE Final Result Performing Organization Address [facility] Co de Phone Number [facility] [place] [address] * POCT glucose (06/04/2025 8:08 PM CDT) Glucose, POC 129 70 - 199 mg/dL Blood 06/04/2025 8:08 PM CDT 06/04/2025 8:08 PM CDT Dari Bojorquez MD LAB POCT ORDERABLES - DEVICE Final Result Performing Organization Address [facility] Co de Phone Number [facility] [place] [address] * Critical Care (06/04/2025 6:15 PM CDT) Narrative Joana Cuellar MD - 06/04/2025 6:15 PM CDT Joana Cuellar MD 06/05/2025 5:09 AM Critical Care Performed by: Joana Cuellar MD Authorized by: Joana Cuellar MD CRITICAL CARE: Team: SICU BLUE Shift: PM Level of Billing: Critical Care My time spent with this patient was 30 minutes: Critical Provider Statement: I have seen and examined the patient on this day of service. I have reviewed and confirmed the history, physical exam, laboratory and radiologic data as documented in the signed ICU note. I have reviewed and discussed my treatment plan with the ICU team and other medical/healthcare management consultant staff, making frequent assessments and decisions regarding this patient's complex medical care. Critical Care time was exclusive of time spent performing separately billed procedures, treating other patients, and teaching. This time was in addition to and separate from critical care provided by other practitioners in my group on this day of service. Critical Care was necessary to treat or prevent imminent or life-threatening deterioration of the following conditions: Acute pain/acute postoperative pain Hypo- or Hyperglycemia This time was spent by me doing the following: Serial bedside patient exams, Serial laboratory checks and Obtaining peripheral venous access or blood draws Acute pain control Active and frequent monitoring of intake/output and volumen status and Glycemic control Review of prior or current culture/gram stain results I spent time reviewing and interpreting data from bedside monitors, laboratory results, and imaging and I spent time discussing the management of this critically ill patient with consultants and the medical staff us Joana Cuellar MD IN CLINIC/BEDSIDE ORDERABLES F inal Result * POCT glucose (06/04/2025 6:06 PM CDT) Glucose, POC 157 70 - 199 mg/dL Blood 06/04/2025 6:06 PM CDT 06/04/2025 6:06 PM CDT us Dari Bojorquez MD LAB POCT ORDERABLES - DEVICE Final Result [facility] Department [place] [address] * Critical Care (06/04/2025 4:36 PM CDT) Narrative Rajesh Jeffries MD - 06/04/2025 4:36 PM CDT Rajesh Jeffries MD 06/04/2025 4:36 PM Critical Care Performed by: Rajesh Jeffries MD Authorized by: Rajesh Jeffries MD CRITICAL CARE: Team: SICU BLUE Shift: AM Level of Billing: Critical Care My time spent with this patient was 30 minutes: Critical Provider Statement: I have seen and examined the patient on this day of service. I have reviewed and confirmed the history, physical exam, laboratory and radiologic data as documented in the signed ICU note. I have reviewed and discussed my treatment plan with the ICU team and other medical/healthcare management consultant staff, making frequent assessments and decisions regarding this patient's complex medical care. Critical Care time was exclusive of time spent performing separately billed procedures, treating other patients, and teaching. This time was in addition to and separate from critical care provided by other practitioners in my group on this day of service. Critical Care was necessary to treat or prevent imminent or life-threatening deterioration of the following conditions: us Rajesh Jeffries MD IN CLINIC/BEDSIDE ORDERABLE S Final Result * POCT glucose (06/04/2025 4:24 PM CDT) Glucose, POC 135 70 - 199 mg/dL Blood 06/04/2025 4:24 PM CDT 06/04/2025 4:24 PM CDT us Dari Bojorquez MD LAB POCT ORDERABLES - DEVICE Final Result Performing Organization Address [facility]/ZIP Co de Phone Number [facility] Department [place] [address] * (ABNORMAL) Tissue aerobic and anaerobic culture and gram stain Tissue Groin, right (06/04/2025 3:55PM CDT) Pathologist [facility] Direct Specimen Exam Stain: Rare polymorphonuclear leukocytes seen. Rare Gram Positive Cocci Rare Gram Negative Bacilli Report Final Report: Rare Mixed anaerobic microorganisms (.) [facility] Organism MIXED ANAEROBIC MICROORGANISMS [facility] Tissue (Groin, right) 06/04/2025 3:55 PM CDT 06/04/2025 5:48 PM CDT Narrative [facility] - 06/13/2025 2:37 PM CDT Right groin tissue Specimen collected in the operating room. Testing performed by [facility] ([phone]) Specimens submitted from normally sterile body sites will have all bacterial morphotypes identified. Specimens that contain grossly mixed leonardo and/or are from body sites that are not normally sterile will be examined for Staphylococcus aureus, Pseudomonas aeruginosa, beta-hemolytic strep, vancomycin-resistant Enterococcus, Bacteroides, Parabacteroides, Clostridium perfringens and fungus. If any of these are isolated, the organism will be reported. Current interpretive data was last revised on 2019. us Lexi Tolbert DO LAB MICROBIOLOGY - GEN ERAL ORDERABLES Final Result [facility] Department [place] [address] * POCT glucose (06/04/2025 3:33 PM CDT) Glucose, POC 125 70 - 199 mg/dL Blood 06/04/2025 3:33 PM CDT 06/04/2025 3:33 PM CDT us Dari Bojorquez MD LAB POCT ORDERABLES - DEVICE Final Result Performing Organization Address [facility] Co de Phone Number [facility] [place] [address] * [place] AN ELECTIVE ENDOTRACHEAL AIRWAY, [place] 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 (06/04/2025 3:31 PM CDT) Narrative Elvis Encinas CRNA - 06/04/2025 3:31 PM CDT Elvis Encinas CRNA 06/04/2025 3:31 PM Airway Patient location: OR Urgency: elective Date/time: 06/04/2025 3:07 PM Indications for airway management: anesthesia Difficult airway: no Staff: Supervising provider: Edgar Blank MD Placed by: GRILL CHEF: Elvis Encinas CRNA Emergent airway documentation: Risks and benefits discussed: yes Consent obtained: yes Consent given by: patient Airway prep: Preoxygenated: yes Patient position: sniffing Mask difficulty assessment: 0 - not attempted Spontaneous ventilation during airway: absent Sedation level during airway: GA Final airway details: Final airway type: endotracheal airway Tube type: ETT ETT size: 7.0 mm Cuffed: yes Technique used for successful ETT placement: video laryngoscopy Devices/Methods used in placement: intubating stylet Insertion site: oral Blade type: Jacklyn Video blade type: Moore Blade size: 3 Cormack-Lehane (video): grade I - full view of glottis Cuff volume: 8 mL Cuff inflated with: air ETT to lips: 21 cm Placement verified by: auscultation and CO2 detection Airway secured with: silk tape Number of attempts: 1 Planned trial extubation: yes us Edgar Blank MD ANESTHESIA ORDERABLES F inal Result * POCT glucose (06/04/2025 2:03 PM CDT) Glucose, POC 156 70 - 199 mg/dL Blood 06/04/2025 2:03 PM CDT 06/04/2025 2:03 PM CDT us Dari Bojorquez MD LAB POCT ORDERABLES - DEVICE Final Result Performing Organization Address [facility] Co de Phone Number [facility] [place] [address] * POCT glucose (06/04/2025 1:03 PM CDT) Glucose, POC 140 70 - 199 mg/dL Blood 06/04/2025 1:03 PM CDT 06/04/2025 1:03 PM CDT Dari Bojorquez MD LAB POCT ORDERABLES - DEVICE Final Result Performing Organization Address [facility] Co de Phone Number [facility] [place] [address] * POCT glucose (06/04/2025 12:05 PM CDT) Glucose, POC 155 70 - 199 mg/dL Blood 06/04/2025 12:0 5 PM CDT 06/04/2025 12:05 PM CDT Dari Bojorquez MD LAB POCT ORDERABLES - DEVICE Final Result Performing Organization Address [facility] Co de Phone Number [facility] [place] [address] * (ABNORMAL) POCT glucose (06/04/2025 11:08 AM CDT) Glucose, POC 216(H) 70 - 199 mg/dL Blood 06/04/2025 11:0 8 AM CDT 06/04/2025 11:08 AM CDT Dari Bojorquez MD LAB POCT ORDERABLES - DEVICE Final Result Performing Organization Address [facility] Co de Phone Number [facility] [place] [address] * POCT glucose (06/04/2025 10:01 AM CDT) Pathologist [facility] Glucose, POC 198 70 - 199 mg/dL Blood 06/04/2025 10:0 1 AM CDT 06/04/2025 10:01 AM CDT us Dari Bjoorquez MD LAB POCT ORDERABLES - DEVICE Final Result Performing Organization Address [facility] Co de Phone Number [facility] [place] [address] * (ABNORMAL) POCT glucose (06/04/2025 9:22 AM CDT) Glucose, POC 244(H) 70 - 199 mg/dL Blood 06/04/2025 9:22 AM CDT 06/04/2025 9:22 AM CDT Dari Bojorquez MD LAB POCT ORDERABLES - DEVICE Final Result Performing Organization Address [facility] Co de Phone Number [facility] [place] [address] * eGFR (06/04/2025 8:24 AM CDT) Pathologist [facility] eGFR >90 >=60 mL/min/1. 73 m2 Comment: Interpretive Data Reference Interval Normal >/= 90 mL/min/1.73m2 Mildly decreased* 60 - 89 mL/min/1.73m2 Mildly to moderately decreased 45 - 59 mL/min/1.73m2 Moderately to severely decreased 30 - 44 mL/min/1.73m2 Severely decreased 15 - 29 mL/min/1.73m2 Kidney Failure < 15 mL/min/1.73m2 *Relative to young adult level Estimated glomerular filtration rate is determined by the 2020 CKD-EPI equation recommended by the National Kidney Foundation (A Unifying Approach to GFR Estimation: Recommendations of the NKF-ASK Task Force on Reassessing the Inclusion of Race in Diagnosing Kidney Disease, JASN 2020). The CKD-EPI equation should not be used for patients with unstable renal function and has not been validated in children and those over 70. Current interpretive data was last reviewed 2021. Blood 06/04/2025 8:24 AM CDT 06/04/2025 8:36 AM CDT us Dari Bojorquez MD LAB BLOOD ORDERABLES Final Result [facility] Department [place] [address] * (ABNORMAL) CBC without differential (06/04/2025 8:24 AM CDT) WBC 23.18(H) 3.80 - 9.90 K/cumm Hgb 11.3(L) 11.9 - 15.5 g/dL [facility] Hct 33.3(L) 35.6 - 45.5 % [facility] Plt 350 150 - 400 K/cumm [facility] MPV 10.6 9.1 - 12.3 fL [facility] RBC 3.96 3.90 - 5.20 M/cumm [facility] MCV 84.1 81.3 - 96.4 fL [facility] MCH 28.5 27.1 - 33.3 pg [facility] MCHC 33.9 32.3 - 35.7 g/dL [facility] RDW CV 14.1 11.1 - 14.9 % [facility] RDW SD 43.5 35.7 - 48.1 fL [facility] NRBC abs 0.02(H) 0.00 - 0.01 K/cumm [facility] Blood 06/04/2025 8:24 AM CDT 06/04/2025 8:36 AM CDT us Dari Bojorquez MD LAB BLOOD ORDERABLES Final Result Performing Organization Address City/[facility] Co de Phone Number [facility] [place] [address] * Phosphorus (06/04/2025 8:24 AM CDT) Pathologist [facility] Phosphorus, pl 3.8 2.3 - 4.5 mg/dL Blood 06/04/2025 8:24 AM CDT 06/04/2025 8:36 AM CDT us Dari Bojorquez MD LAB BLOOD ORDERABLES Final Result Performing Organization Address [facility] de Phone Number [facility] [place] [address] * (ABNORMAL) Magnesium (06/04/2025 8:24 AM CDT) Magnesium 2.7(H) 1.4 - 2.5 mg/dL Blood 06/04/2025 8:24 AM CDT 06/04/2025 8:36 AM CDT Dari Bojorquez MD LAB BLOOD ORDERABLES Final Result Performing Organization Address [facility] Co de Phone Number [facility] [place] [address] * (ABNORMAL) Basic metabolic panel (06/04/2025 8:24 AM CDT) Sodium 135 135 - 145 mmol/L Potassium, pl 4.7 3.3 - 4.9 mmol/L [facility] Chloride 104 97 - 110 mmol/L [facility] CO2 21(L) 22 - 32 mmol/L [facility] Anion gap 10 2 - 15 mmol/L [facility] BUN 24 6 - 25 mg/dL [facility] Creatinine 0.80 0.60 - 1.10 mg/dL [facility] Glucose 234(H) 70 - 199 mg/dL [facility] Comment: Interpretive Data Fasting glucose >/= 126 mg/dl is diagnostic for diabetes. Fasting is defined as no caloric intake for at least 8 hours. Fasting glucose between 100 mg/dl to 125 mg/dl is diagnostic of prediabetes. In a patient with classic symptoms of hyperglycemia or hyperglycemic crisis, a random glucose >/= 200 mg/dl is diagnostic for diabetes. In the absence of unequivocal hyperglycemia, results should be confirmed by repeat testing. The classification and Diagnosis of Diabetes Diabetes Care 2021; 46: S19-S40. Current interpretive data was last revised 2022. Calcium 8.1(L) 8.5 - 10.3 mg/dL [facility] Blood 06/04/2025 8:24 AM CDT 06/04/2025 8:36 AM CDT us Dari Bojorquez MD LAB BLOOD ORDERABLES Final Result Performing Organization Address City/[facility]/ZIP Co de Phone Number [facility] Department [place] [address] * (ABNORMAL) POCT glucose (06/04/2025 7:36 AM CDT) Glucose, POC 219(H) 70 - 199 mg/dL Blood 06/04/2025 7:36 AM CDT 06/04/2025 7:36 AM CDT Dari Bojorquez MD LAB POCT ORDERABLES - DEVICE Final Result Performing Organization Address [facility]/ZIP Co de Phone Number [facility] Department [place] [address] * (ABNORMAL) POCT glucose (06/04/2025 3:57 AM CDT) Glucose, POC 219(H) 70 - 199 mg/dL Blood 06/04/2025 3:5 7 AM CDT 06/04/2025 3:57 AM CDT Dari Bojorquez MD LAB POCT ORDERABLES - DEVICE Final Result Performing Organization Address [facility] [place] [address] * (ABNORMAL) POCT glucose (06/03/2025 11:33 PM CDT) Glucose, POC 258(H) 70 - 199 mg/dL Blood 06/03/2025 11:3 3 PM CDT 06/03/2025 11:33 PM CDT Dari Bojorquez MD LAB POCT ORDERABLES - DEVICE Final Result Performing Organization Address [facility] de Phone Number [facility] [place] [address] * eGFR (06/03/2025 10:05 PM CDT) eGFR 64 >=60 mL/min/1. 73 m2 Comment: Interpretive Data Reference Interval Normal >/= 90 mL/min/1.73m2 Mildly decreased* 60 - 89 mL/min/1.73m2 Mildly to moderately decreased 45 - 59 mL/min/1.73m2 Moderately to severely decreased 30 - 44 mL/min/1.73m2 Severely decreased 15 - 29 mL/min/1.73m2 Kidney Failure < 15 mL/min/1.73m2 *Relative to young adult level Estimated glomerular filtration rate is determined by the 2020 CKD-EPI equation recommended by the National Kidney Foundation (A Unifying Approach to GFR Estimation: Recommendations of the NKF-ASK Task Force on Reassessing the Inclusion of Race in Diagnosing Kidney Disease, JASN 2020). The CKD-EPI equation should not be used for patients with unstable renal function and has not been validated in children and those over 70. Current interpretive data was last reviewed 2021. Blood 06/03/2025 10:0 5 PM CDT 06/03/2025 10:20 PM CDT Dari Bojorquez MD LAB BLOOD ORDERABLES Final Result Performing Organization Address City/[facility]/ZIP Co de Phone Number [facility] Department [place] [address] * Thyroid Function [place] (06/03/2025 10:05 PM CDT) Pathologist [facility] TSH 0.70 0.30 - 4.20 mcIUnit/mL Blood 06/03/2025 10:0 5 PM CDT 06/03/2025 10:20 PM CDT Dari Bojorquez MD LAB BLOOD ORDERABLES Final Result Performing Organization Address [facility] Co de Phone Number [facility] Department [place] [place] [address] * (ABNORMAL) CBC without differential (06/03/2025 10:05 PM CDT) Pathologist [facility] WBC 24.56(H) 3.80 - 9.90 K/cumm Hgb 11.5(L) 11.9 - 15.5 g/dL [facility] Hct 33.5(L) 35.6 - 45.5 % [facility] Plt 342 150 - 400 K/cumm [facility] MPV 10.7 9.1 - 12.3 fL [facility] RBC 4.00 3.90 - 5.20 M/cumm [facility] MCV 83.8 81.3 - 96.4 fL [facility] MCH 28.8 27.1 - 33.3 pg [facility] MCHC 34.3 32.3 - 35.7 g/dL [facility] RDW CV 13.6 11.1 - 14.9 % [facility] RDW SD 42.4 35.7 - 48.1 fL [facility] NRBC abs 0.04(H) 0.00 - 0.01 K/cumm [facility] Blood 06/03/2025 10:0 5 PM CDT 06/03/2025 10:20 PM CDT Dari Bojorquez MD LAB BLOOD ORDERABLES Final Result Performing Organization Address City/[facility]/ZIP Co de Phone Number [facility] [place] [address] * Phosphorus (06/03/2025 10:05 PM CDT) Pathologist [facility] Phosphorus, pl 3.6 2.3 - 4.5 mg/dL Blood 06/03/2025 10:0 5 PM CDT 06/03/2025 10:20 PM CDT Dari Bojorquez MD LAB BLOOD ORDERABLES Final Result Performing Organization Address City/[facility] Co de Phone Number [facility] [place] [address] * (ABNORMAL) Magnesium (06/03/2025 10:05 PM CDT) Pathologist [facility] Magnesium 2.9(H) 1.4 - 2.5 mg/dL Blood 06/03/2025 10:0 5 PM CDT 06/03/2025 10:20 PM CDT Dari Bojorquez MD LAB BLOOD ORDERABLES Final Result Performing Organization Address City/[facility]/ZIP Co de Phone Number [facility] Department [place] [address] * (ABNORMAL) Basic metabolic panel (06/03/2025 10:05 PM CDT) Sodium 133(L) 135 - 145 mmol/L Potassium, pl 4.6 3.3 - 4.9 mmol/L [facility] Chloride 99 97 - 110 mmol/L [facility] CO2 25 22 - 32 mmol/L [facility] Anion gap 9 2 - 15 mmol/L [facility] BUN 29(H) 6 - 25 mg/dL [facility] Creatinine 1.07 0.60 - 1.10 mg/dL [facility] Glucose 296(H) 70 - 199 mg/dL [facility] Comment: Interpretive Data Fasting glucose >/= 126 mg/dl is diagnostic for diabetes. Fasting is defined as no caloric intake for at least 8 hours. Fasting glucose between 100 mg/dl to 125 mg/dl is diagnostic of prediabetes. In a patient with classic symptoms of hyperglycemia or hyperglycemic crisis, a random glucose >/= 200 mg/dl is diagnostic for diabetes. In the absence of unequivocal hyperglycemia, results should be confirmed by repeat testing. The classification and Diagnosis of Diabetes Diabetes Care 2021; 46: S19-S40. Current interpretive data was last revised 2022. Calcium 8.7 8.5 - 10.3 mg/dL [facility] Blood 06/03/2025 10:0 5 PM CDT 06/03/2025 10:20 PM CDT us Dari Bojorquez MD LAB BLOOD ORDERABLES Final Result [facility] Department [place] [address] * Critical Care (06/03/2025 7:24 PM CDT) Narrative Joana Cuellar MD - 06/03/2025 7:24 PM CDT Joana Cuellar MD 06/03/2025 7:39 PM Critical Care Performed by: Joana Cuellar MD Authorized by: Joana Cuellar MD CRITICAL CARE: Team: SICU BLUE Shift: PM Level of Billing: Critical Care My time spent with this patient was 30 minutes: Critical Provider Statement: I have seen and examined the patient on this day of service. I have reviewed and confirmed the history, physical exam, laboratory and radiologic data as documented in the signed ICU note. I have reviewed and discussed my treatment plan with the ICU team and other medical/healthcare management consultant staff, making frequent assessments and decisions regarding this patient's complex medical care. Critical Care time was exclusive of time spent performing separately billed procedures, treating other patients, and teaching. This time was in addition to and separate from critical care provided by other practitioners in my group on this day of service. Critical Care was necessary to treat or prevent imminent or life-threatening deterioration of the following conditions: Acute pain/acute postoperative pain Hypo- or Hyperglycemia Necrotizing soft tissue infection This time was spent by me doing the following: Serial laboratory checks, Serial bedside patient exams and Obtaining peripheral venous access or blood draws Acute pain control Active and frequent monitoring of intake/output and volumen status and Glycemic control Active repletion of electrolytes Review of prior or current culture/gram stain results I spent time reviewing and interpreting data from bedside monitors, laboratory results, and imaging and I spent time discussing the management of this critically ill patient with consultants and the medical staff us Joana Cuellar MD IN CLINIC/BEDSIDE ORDERABLES F inal Result * POCT glucose (06/03/2025 6:48 PM CDT) Glucose, POC 195 70 - 199 mg/dL Blood 06/03/2025 6:48 PM CDT 06/03/2025 6:48 PM CDT us Dari Bojorquez MD LAB POCT ORDERABLES - DEVICE Final Result [facility] Department [place] [address] * (ABNORMAL) POCT glucose (06/03/2025 3:30 PM CDT) Glucose, POC 238(H) 70 - 199 mg/dL Blood 06/03/2025 3:30 PM CDT 06/03/2025 3:30 PM CDT us Dari Bojorquez MD LAB POCT ORDERABLES - DEVICE Final Result Performing Organization Address City/[facility]/ZIP Co de Phone Number [facility] Department [place] [address] * Critical Care (06/03/2025 3:00 PM CDT) Narrative Rajesh Jeffries MD - 06/03/2025 3:00 PM CDT Rajesh Jeffries MD 06/03/2025 3:01 PM Critical Care Performed by: Rajesh Jeffries MD Authorized by: Rajesh Jeffries MD CRITICAL CARE: Team: SICU BLUE Shift: AM Level of Billing: Critical Care My time spent with this patient was 40 minutes: Critical Provider Statement: I have seen and examined the patient on this day of service. I have reviewed and confirmed the history, physical exam, laboratory and radiologic data as documented in the signed ICU note. I have reviewed and discussed my treatment plan with the ICU team and other medical/healthcare management consultant staff, making frequent assessments and decisions regarding this patient's complex medical care. Critical Care time was exclusive of time spent performing separately billed procedures, treating other patients, and teaching. This time was in addition to and separate from critical care provided by other practitioners in my group on this day of service. Critical Care was necessary to treat or prevent imminent or life-threatening deterioration of the following conditions: us Rajesh Jeffries MD IN CLINIC/BEDSIDE ORDERABLE S Final Result * POCT glucose (06/03/2025 2:45 PM CDT) Glucose, POC 192 70 - 199 mg/dL Blood 06/03/2025 2:45 PM CDT 06/03/2025 2:45 PM CDT us Dari Bojorquez MD LAB POCT ORDERABLES - DEVICE Final Result Performing Organization Address City/[facility]/ZIP Co de Phone Number [facility] [place] [address] * POCT glucose (06/03/2025 1:02 PM CDT) Glucose, POC 189 70 - 199 mg/dL Blood 06/03/2025 1:02 PM CDT 06/03/2025 1:02 PM CDT Dari Bojorquez MD LAB POCT ORDERABLES - DEVICE Final Result Performing Organization Address City/[facility]/[place] [address] * POCT glucose (06/03/2025 12:02 PM CDT) Glucose, POC 184 70 - 199 mg/dL Blood 06/03/2025 12:0 2 PM CDT 06/03/2025 12:02 PM CDT us Dari Bojorquez MD LAB POCT ORDERABLES - DEVICE Final Result Performing Organization Address City/[facility]/[place] [address] * POCT glucose (06/03/2025 11:13 AM CDT) Glucose, POC 192 70 - 199 mg/dL Blood 06/03/2025 11:1 3 AM CDT 06/03/2025 11:13 AM CDT Dari Bojorquez MD LAB POCT ORDERABLES - DEVICE Final Result Performing Organization Address [facility] [place] [address] * POCT glucose (06/03/2025 8:53 AM CDT) Glucose, POC 120 70 - 199 mg/dL Blood 06/03/2025 8:53 AM CDT 06/03/2025 8:53 AM CDT us Dari Bojorquez MD LAB POCT ORDERABLES - DEVICE Final Result Performing Organization Address [facility] de Phone Number [facility] [place] [address] * POCT glucose (06/03/2025 6:53 AM CDT) Glucose, POC 113 70 - 199 mg/dL Blood 06/03/2025 6:53 AM CDT 06/03/2025 6:53 AM CDT Dari Bojorquez MD LAB POCT ORDERABLES - DEVICE Final Result Performing Organization Address [facility] de Phone Number [facility] [place] [address] * POCT glucose (06/03/2025 4:54 AM CDT) Glucose, POC 129 70 - 199 mg/dL Blood 06/03/2025 4:54 AM CDT 06/03/2025 4:54 AM CDT Dari Bojorquez MD LAB POCT ORDERABLES - DEVICE Final Result Performing Organization Address [facility] de Phone Number [facility] [place] [address] * POCT glucose (06/03/2025 3:51 AM CDT) Glucose, POC 131 70 - 199 mg/dL Blood 06/03/2025 3:51 AM CDT 06/03/2025 3:51 AM CDT Dari Bojorquez MD LAB POCT ORDERABLES - DEVICE Final Result Performing Organization Address [facility] Co de Phone Number [facility] [place] [address] * POCT glucose (06/03/2025 2:51 AM CDT) Glucose, POC 140 70 - 199 mg/dL Blood 06/03/2025 2:51 AM CDT 06/03/2025 2:51 AM CDT Dari Bojorquez MD LAB POCT ORDERABLES - DEVICE Final Result Performing Organization Address [facility] Co de Phone Number [facility] [place] [address] * POCT glucose (06/03/2025 12:57 AM CDT) Glucose, POC 112 70 - 199 mg/dL Blood 06/03/2025 12:5 7 AM CDT 06/03/2025 12:57 AM CDT Dari Bojorquez MD LAB POCT ORDERABLES - DEVICE Final Result Performing Organization Address [facility] Co de Phone Number [facility] [place] [address] * POCT glucose (06/02/2025 11:53 PM CDT) Glucose, POC 115 70 - 199 mg/dL Blood 06/02/2025 11:5 3 PM CDT 06/02/2025 11:53 PM CDT Dari Bojorquez MD LAB POCT ORDERABLES - DEVICE Final Result Performing Organization Address City/[facility] Co de Phone Number [facility] [place] [address] * POCT glucose (06/02/2025 10:55 PM CDT) Glucose, POC 114 70 - 199 mg/dL Blood 06/02/2025 10:5 5 PM CDT 06/02/2025 10:55 PM CDT us Dari Bojorquez MD LAB POCT ORDERABLES - DEVICE Final Result [facility] [place] [address] * POCT glucose (06/02/2025 9:56 PM CDT) Glucose, POC 113 70 - 199 mg/dL Blood 06/02/2025 9:56 PM CDT 06/02/2025 9:56 PM CDT us Dari Bojorquez MD LAB POCT ORDERABLES - DEVICE Final Result Performing Organization Address City/[facility] [place] [address] * (ABNORMAL) eGFR (06/02/2025 9:54 PM CDT) eGFR 45(L) >=60 mL/min/1. 73 m2 Comment: Interpretive Data Reference Interval Normal >/= 90 mL/min/1.73m2 Mildly decreased* 60 - 89 mL/min/1.73m2 Mildly to moderately decreased 45 - 59 mL/min/1.73m2 Moderately to severely decreased 30 - 44 mL/min/1.73m2 Severely decreased 15 - 29 mL/min/1.73m2 Kidney Failure < 15 mL/min/1.73m2 *Relative to young adult level Estimated glomerular filtration rate is determined by the 2020 CKD-EPI equation recommended by the National Kidney Foundation (A Unifying Approach to GFR Estimation: Recommendations of the NKF-ASK Task Force on Reassessing the Inclusion of Race in Diagnosing Kidney Disease, JASN 202). The CKD-EPI equation should not be used for patients with unstable renal function and has not been validated in children and those over 70. Current interpretive data was last reviewed 2021. Blood 06/02/2025 9:54 PM CDT 06/02/2025 10:23 PM CDT Dari Bojorquez MD LAB BLOOD ORDERABLES Final Result [facility] Department [place] [address] * (ABNORMAL) CBC without differential (06/02/2025 9:54 PM CDT) WBC 28.16(H) 3.80 - 9.90 K/cumm Hgb 10.8(L) 11.9 - 15.5 g/dL [facility] Hct 33.0(L) 35.6 - 45.5 % [facility] Plt 335 150 - 400 K/cumm [facility] MPV 10.9 9.1 - 12.3 fL [facility] RBC 3.83(L) 3.90 - 5.20 M/cumm [facility] MCV 86.2 81.3 - 96.4 fL [facility] MCH 28.2 27.1 - 33.3 pg [facility] MCHC 32.7 32.3 - 35.7 g/dL [facility] RDW CV 13.6 11.1 - 14.9 % [facility] RDW SD 42.4 35.7 - 48.1 fL [facility] NRBC abs 0.00 0.00 - 0.01 K/cumm [facility] Blood 06/02/2025 9:54 PM CDT 06/02/2025 10:23 PM CDT us Dari Bojorquez MD LAB BLOOD ORDERABLES Final Result [facility] [place] [address] * (ABNORMAL) Phosphorus (06/02/2025 9:54 PM CDT) Pathologist [facility] Phosphorus, pl 5.4(H) 2.3 - 4.5 mg/dL Blood 06/02/2025 9:54 PM CDT 06/02/2025 10:23 PM CDT Dari Bojorquez MD LAB BLOOD [place] [address] * Magnesium (06/02/2025 9:54 PM CDT) [facility] Magnesium 2.4 1.4 - 2.5 mg/dL Blood 06/02/2025 9:54 PM CDT 06/02/2025 10:23 PM CDT Dari Bojorquez MD LAB BLOOD ORDERABLES Final Result Performing Organization Address City/[facility] [place] [address] * (ABNORMAL) Lipid panel (06/02/2025 9:54 PM CDT) [facility] Cholesterol 105 30 - 199 mg/dL Comment: Interpretive Data Ages < or = 19 years Acceptable: <170 mg/dL Borderline high: 170-199 mg/dL High: >or= 200 mg/dL Ages > or = 20 years Desirable: <200 mg/dL Borderline high: 200-239 mg/dL High: >or= 240 mg/dL Literature References: 1. Expert Panel on Integrated Guidelines for Cardiovascular Health and Risk Reduction in Children and Adolescents. Pediatrics 2011;128:S213 2. NCEP Expert Panel. Circulation 2004;110:227 Current Interpretive Data was last revised on 2018. Triglycerides 178(H) <=149 mg/dL [facility] Comment: Interpretive Data Ages < or = 9 years Acceptable: <75 mg/dL Borderline high: 75-99 mg/dL High: >or= 100 mg/dL Ages 10 to 20 years Acceptable: <90 mg/dL Borderline high: 90-129 mg/dL High: >or= 130 mg/dL Ages > or = 20 years Desirable: <150 mg/dL Borderline high: 150-199 mg/dL High: 200-499 mg/dL Very high: >or= 499 mg/dL Literature References: 1. Expert Panel on Integrated Guidelines for Cardiovascular Health and Risk Reduction in Children and Adolescents. Pediatrics 2011;128:S213 2. NCEP Expert Panel. Circulation 2004;110:227 Current Interpretive Data was last revised on 2018. HDL 29(L) >=40 mg/dL [facility] Comment: Interpretive Data Ages < or = 19 years Acceptable: >45 mg/dL Borderline low: 40-45 mg/dL Low: <40 mg/dL Ages > or = 20 years Desirable: >or= 60 mg/dL Low: <40 mg/dL Literature References: 1. Expert Panel on Integrated Guidelines for Cardiovascular Health and Risk Reduction in Children and Adolescents. Pediatrics 2011;128:S213 2. NCEP Expert Panel. Circulation 2004;110:227 Current Interpretive Data was last revised on 2018. LDL, calculated 46 <=129 mg/dL [facility] Comment: Interpretive Data Ages < or = 19 years Acceptable: <110 mg/dL Borderline high: 110-129 mg/dL High: >or= 130 mg/dL Ages > or = 20 years Optimal: <100 mg/dL Near optimal: 100-129 mg/dL Borderline high: 130-159 mg/dL High: >160 mg/dL Calculated using the Jean LDL-C estimating equation. This equation was implemented on 2024. Prior to this date LDL-C was estimated using the Friedewald equation. Literature References: 1. Expert Panel on Integrated Guidelines for Cardiovascular Health and Risk Reduction in Children and Adolescents. Pediatrics 2011;128:S213 2. NCEP Expert Panel. Circulation 2004;110:227 3. Jean Deal et al. PAULA Cardiol. 2020 February 15;5(5):540-548. doi: 10.1001/[email or web address].2020.0013 Current Interpretive Data was last revised on 2024. Non-HDL Cholesterol 76 mg/dL [facility] Comment: Interpretive Data Ages < or = 19 years Acceptable: <120 mg/dL Borderline high: 120-144 mg/dL High: >145 mg/dL Ages > or = 20 years When triglycerides are >200 mg/dL, Non-HDL cholesterol is a secondary target of therapy with treatment goals that are 30 mg/dL greater than the LDL cholesterol target. Literature References: 1. Expert Panel on Integrated Guidelines for Cardiovascular Health and Risk Reduction in Children and Adolescents. Pediatrics 2011;128:S213 2. NCEP Expert Panel. Circulation 2004;110:227 Current Interpretive Data was last revised on 2018. Chol/HDL ratio 4 [facility] Blood 06/02/2025 9:54 PM CDT 06/02/2025 10:23 PM CDT Dari Bojorquez MD LAB BLOOD ORDERABLES Final Result [facility] Department [place] [address] * (ABNORMAL) Basic metabolic panel (06/02/2025 9:54 PM CDT) Sodium 138 135 - 145 mmol/L Potassium, pl 4.0 3.3 - 4.9 mmol/L [facility] Chloride 102 97 - 110 mmol/L [facility] CO2 21(L) 22 - 32 mmol/L [facility] Anion gap 15 2 - 15 mmol/L [facility] BUN 35(H) 6 - 25 mg/dL [facility] Creatinine 1.45(H) 0.60 - 1.10 mg/dL [facility] Glucose 104 70 - 199 mg/dL [facility] Comment: Interpretive Data Fasting glucose >/= 126 mg/dl is diagnostic for diabetes. Fasting is defined as no caloric intake for at least 8 hours. Fasting glucose between 100 mg/dl to 125 mg/dl is diagnostic of prediabetes. In a patient with classic symptoms of hyperglycemia or hyperglycemic crisis, a random glucose >/= 200 mg/dl is diagnostic for diabetes. In the absence of unequivocal hyperglycemia, results should be confirmed by repeat testing. The classification and Diagnosis of Diabetes Diabetes Care 2021; 46: S19-S40. Current interpretive data was last revised 2022. Calcium 8.6 8.5 - 10.3 mg/dL [facility] Blood 06/02/2025 9:54 PM CDT 06/02/2025 10:23 PM CDT us Dari Bojorquez MD LAB BLOOD ORDERABLES Final Result Performing Organization Address City/[facility]/[place] [address] * POCT glucose (06/02/2025 8:55 PM CDT) Glucose, POC 164 70 - 199 mg/dL Blood 06/02/2025 8:55 PM CDT 06/02/2025 8:55 PM CDT us Dari Bojorquez MD LAB POCT ORDERABLES - DEVICE Final Result Performing Organization Address City/[facility] Co de Phone Number [facility] Department [place] [place] [address] * POCT glucose (06/02/2025 8:01 PM CDT) Glucose, POC 171 70 - 199 mg/dL Blood 06/02/2025 8:01 PM CDT 06/02/2025 8:01 PM CDT Dari Bojorquez MD LAB POCT ORDERABLES - DEVICE Final Result Performing Organization Address City/[facility] Co de Phone Number [facility] [place] [address] * Critical Care (06/02/2025 7:10 PM CDT) Narrative Joana Cuellar MD - 06/02/2025 7:10 PM CDT Joana Cuellar MD 06/02/2025 11:44 PM Critical Care Performed by: Joana Cuellar MD Authorized by: Joana Cuellar MD CRITICAL CARE: Team: SICU BLUE Shift: PM Level of Billing: Critical Care My time spent with this patient was 30 minutes: Critical Provider Statement: I have seen and examined the patient on this day of service. I have reviewed and confirmed the history, physical exam, laboratory and radiologic data as documented in the signed ICU note. I have reviewed and discussed my treatment plan with the ICU team and other medical/healthcare management consultant staff, making frequent assessments and decisions regarding this patient's complex medical care. Critical Care time was exclusive of time spent performing separately billed procedures, treating other patients, and teaching. This time was in addition to and separate from critical care provided by other practitioners in my group on this day of service. Critical Care was necessary to treat or prevent imminent or life-threatening deterioration of the following conditions: Acute pain/acute postoperative pain Acute electrolyte derangement, Acute kidney injury and Hypo- or Hyperglycemia Necrotizing soft tissue infection This time was spent by me doing the following: Serial laboratory checks, Serial bedside patient exams and Obtaining peripheral venous access or blood draws Acute pain control Active and frequent monitoring of intake/output and volumen status Active repletion of electrolytes Review of prior or current culture/gram stain results and Empiric broad coverage antibiotics I spent time reviewing and interpreting data from bedside monitors, laboratory results, and imaging and I spent time discussing the management of this critically ill patient with consultants and the medical staff us Joana Cuellar MD IN CLINIC/BEDSIDE ORDERABLES F inal Result * (ABNORMAL) POCT glucose (06/02/2025 6:49 PM CDT) Glucose, POC 211(H) 70 - 199 mg/dL Blood 06/02/2025 6:49 PM CDT 06/02/2025 6:49 PM CDT us Dari Bojorquez MD LAB POCT ORDERABLES - DEVICE Final Result [facility] Department [place] [address] * POCT glucose (06/02/2025 5:07 PM CDT) [facility] Glucose, POC 101 70 - 199 mg/dL Blood 06/02/2025 5:07 PM CDT 06/02/2025 5:07 PM CDT us Dari Bojorquez MD LAB POCT ORDERABLES - DEVICE Final Result Performing Organization Address [facility] de Phone Number [facility] [place] [address] * (ABNORMAL) eGFR (06/02/2025 4:35 PM CDT) [facility] eGFR 55(L) >=60 mL/min/1. 73 m2 Comment: Interpretive Data Reference Interval Normal >/= 90 mL/min/1.73m2 Mildly decreased* 60 - 89 mL/min/1.73m2 Mildly to moderately decreased 45 - 59 mL/min/1.73m2 Moderately to severely decreased 30 - 44 mL/min/1.73m2 Severely decreased 15 - 29 mL/min/1.73m2 Kidney Failure < 15 mL/min/1.73m2 *Relative to young adult level Estimated glomerular filtration rate is determined by the 2020 CKD-EPI equation recommended by the National Kidney Foundation (A Unifying Approach to GFR Estimation: Recommendations of the NKF-ASK Task Force on Reassessing the Inclusion of Race in Diagnosing Kidney Disease, JASN 2020). The CKD-EPI equation should not be used for patients with unstable renal function and has not been validated in children and those over 70. Current interpretive data was last reviewed 2021. Blood 06/02/2025 4:35 PM CDT 06/02/2025 4:44 PM CDT us Dari Bojorquez MD LAB BLOOD ORDERABLES Final Result Performing Organization Address [facility]/ZIP Co de Phone Number [facility] [place] [address] * (ABNORMAL) Phosphorus (06/02/2025 4:35 PM CDT) [facility] Phosphorus, pl 5.3(H) 2.3 - 4.5 mg/dL Blood 06/02/2025 4:35 PM CDT 06/02/2025 4:44 PM CDT Dari Bojorquez MD LAB BLOOD ORDERABLES Final Result Performing Organization Address City/[facility]/ZIP Co de Phone Number [facility] [place] [address] * Magnesium (06/02/2025 4:35 PM CDT) [facility] Magnesium 2.4 1.4 - 2.5 mg/dL Blood 06/02/2025 4:35 PM CDT 06/02/2025 4:44 PM CDT Dari Bojorquez MD LAB BLOOD ORDERABLES Final Result Performing Organization Address City/[facility] Co de Phone Number [facility] [place] [address] * (ABNORMAL) Basic metabolic panel (06/02/2025 4:35 PM CDT) [facility] Sodium 138 135 - 145 mmol/L Potassium, pl 4.2 3.3 - 4.9 mmol/L [facility] Chloride 103 97 - 110 mmol/L [facility] CO2 22 22 - 32 mmol/L [facility] Anion gap 13 2 - 15 mmol/L [facility] BUN 31(H) 6 - 25 mg/dL [facility] Creatinine 1.23(H) 0.60 - 1.10 mg/dL [facility] Glucose 105 70 - 199 mg/dL [facility] Comment: Interpretive Data Fasting glucose >/= 126 mg/dl is diagnostic for diabetes. Fasting is defined as no caloric intake for at least 8 hours. Fasting glucose between 100 mg/dl to 125 mg/dl is diagnostic of prediabetes. In a patient with classic symptoms of hyperglycemia or hyperglycemic crisis, a random glucose >/= 200 mg/dl is diagnostic for diabetes. In the absence of unequivocal hyperglycemia, results should be confirmed by repeat testing. The classification and Diagnosis of Diabetes Diabetes Care 2021; 46: S19-S40. Current interpretive data was last revised 2022. Calcium 8.6 8.5 - 10.3 mg/dL [facility] Blood 06/02/2025 4:35 PM CDT 06/02/2025 4:44 PM CDT Dari Bojorquez MD LAB BLOOD ORDERABLES Final Result Performing Organization Address [facility] de Phone Number [facility] Department [place] [address] * POCT glucose (06/02/2025 4:28 PM CDT) Glucose, POC 100 70 - 199 mg/dL Blood 06/02/2025 4:28 PM CDT 06/02/2025 4:28 PM CDT Dari Bojorquez MD LAB POCT ORDERABLES - DEVICE Final Result Performing Organization Address [facility] de Phone Number [facility] Department [place] [address] * POCT glucose (06/02/2025 3:16 PM CDT) Glucose, POC 102 70 - 199 mg/dL Blood 06/02/2025 3:16 PM CDT 06/02/2025 3:16 PM CDT Dari Bojorquez MD LAB POCT ORDERABLES - DEVICE Final Result Performing Organization Address [facility]/ZIP Co de Phone Number [facility] Department [place] [address] * POCT glucose (06/02/2025 2:34 PM CDT) Pathologist [facility] Glucose, POC 132 70 - 199 mg/dL Blood 06/02/2025 2:34 PM CDT 06/02/2025 2:34 PM CDT us Dari Bojorquez MD LAB POCT ORDERABLES - DEVICE Final Result Performing Organization Address [facility] de Phone Number [facility] [place] [address] * (ABNORMAL) eGFR (06/02/2025 1:35 PM CDT) [facility] eGFR 54(L) >=60 mL/min/1. 73 m2 Comment: Interpretive Data Reference Interval Normal >/= 90 mL/min/1.73m2 Mildly decreased* 60 - 89 mL/min/1.73m2 Mildly to moderately decreased 45 - 59 mL/min/1.73m2 Moderately to severely decreased 30 - 44 mL/min/1.73m2 Severely decreased 15 - 29 mL/min/1.73m2 Kidney Failure < 15 mL/min/1.73m2 *Relative to young adult level Estimated glomerular filtration rate is determined by the 2020 CKD-EPI equation recommended by the National Kidney Foundation (A Unifying Approach to GFR Estimation: Recommendations of the NKF-ASK Task Force on Reassessing the Inclusion of Race in Diagnosing Kidney Disease, JASN 2020). The CKD-EPI equation should not be used for patients with unstable renal function and has not been validated in children and those over 70. Current interpretive data was last reviewed 2021. Blood 06/02/2025 1:35 PM CDT 06/02/2025 1:56 PM CDT us Dari Bojorquez MD LAB BLOOD ORDERABLES Final Result [facility] Department [place] [address] * Beta-hydroxybutyrate (06/02/2025 1:35 PM CDT) [facility] Beta-Hydroxybut yrate 0.2 0.0 - 0.5 mmol/L Blood 06/02/2025 1:35 PM CDT 06/02/2025 2:00 PM CDT Dari Bojorquez MD LAB BLOOD ORDERABLES Edited Result - Final [facility] [place] [address] * (ABNORMAL) CBC without differential (06/02/2025 1:35 PM CDT) [facility] WBC 28.31(H) 3.80 - 9.90 K/cumm Hgb 11.6(L) 11.9 - 15.5 g/dL [facility] Hct 34.6(L) 35.6 - 45.5 % [facility] Plt 331 150 - 400 K/cumm [facility] MPV 10.7 9.1 - 12.3 fL [facility] RBC 4.08 3.90 - 5.20 M/cumm [facility] MCV 84.8 81.3 - 96.4 fL [facility] MCH 28.4 27.1 - 33.3 pg [facility] MCHC 33.5 32.3 - 35.7 g/dL [facility] RDW CV 13.6 11.1 - 14.9 % [facility] RDW SD 42.1 35.7 - 48.1 fL [facility] NRBC abs 0.00 0.00 - 0.01 K/cumm [facility] Blood 06/02/2025 1:35 PM CDT 06/02/2025 1:56 PM CDT us Dari Bojorquez MD LAB BLOOD ORDERABLES Final Result [facility] Department [place] [address] * (ABNORMAL) Comprehensive metabolic panel (06/02/2025 1:35 PM CDT) Sodium 137 135 - 145 mmol/L Comment:Repeated and Verifie d Potassium, pl 4.2 3.3 - 4.9 mmol/L [facility] Chloride 102 97 - 110 mmol/L [facility] CO2 22 22 - 32 mmol/L [facility] Anion gap 14 2 - 15 mmol/L [facility] BUN 29(H) 6 - 25 mg/dL [facility] Creatinine 1.24(H) 0.60 - 1.10 mg/dL [facility] Glucose 163 70 - 199 mg/dL [facility] Comment: Interpretive Data Fasting glucose >/= 126 mg/dl is diagnostic for diabetes. Fasting is defined as no caloric intake for at least 8 hours. Fasting glucose between 100 mg/dl to 125 mg/dl is diagnostic of prediabetes. In a patient with classic symptoms of hyperglycemia or hyperglycemic crisis, a random glucose >/= 200 mg/dl is diagnostic for diabetes. In the absence of unequivocal hyperglycemia, results should be confirmed by repeat testing. The classification and Diagnosis of Diabetes Diabetes Care 202; 46: S19-S40. Current interpretive data was last revised 2022. Calcium 8.9 8.5 - 10.3 mg/dL [facility] Bilirubin, total <0.2 0.1 - 1.2 mg/dL [facility] Protein, pl 6.9 6.5 - 8.5 g/dL [facility] Albumin 3.0(L) 3.5 - 5.0 g/dL [facility] Alk phos 146(H) 40 - 130 Units/L [facility] ALT 19 7 - 45 Units/L [facility] AST 20 10 - 45 Units/L [facility] Blood 06/02/2025 1:35 PM CDT 06/02/2025 1:56 PM CDT us Dari Bojorquez MD LAB BLOOD ORDERABLES Final Result Performing Organization Address [facility] Co de Phone Number [facility] [place] [address] * POCT glucose (06/02/2025 12:54 PM CDT) Glucose, POC 181 70 - 199 mg/dL Blood 06/02/2025 12:5 4 PM CDT 06/02/2025 12:54 PM CDT Dari Bojorquez MD LAB POCT ORDERABLES - DEVICE Final Result Performing Organization Address [facility] de Phone Number [facility] [place] [address] * (ABNORMAL) POCT glucose (06/02/2025 11:50 AM CDT) Glucose, POC 245(H) 70 - 199 mg/dL Blood 06/02/2025 11:5 0 AM CDT 06/02/2025 11:50 AM CDT Dari Bojorquez MD LAB POCT ORDERABLES - DEVICE Final Result Performing Organization Address [facility] de Phone Number [facility] [place] [address] * (ABNORMAL) POCT glucose (06/02/2025 10:54 AM CDT) Glucose, POC 291(H) 70 - 199 mg/dL Blood 06/02/2025 10:5 4 AM CDT 06/02/2025 10:54 AM CDT Dari Bojorquez MD LAB POCT ORDERABLES - DEVICE Final Result Performing Organization Address [facility] Co de Phone Number [facility] [place] Department [place] [address] * (ABNORMAL) POCT glucose (06/02/2025 9:44 AM CDT) Glucose, POC 336(H) 70 - 199 mg/dL Blood 06/02/2025 9:44 AM CDT 06/02/2025 9:44 AM CDT us Dari Bojorquez MD LAB POCT ORDERABLES - DEVICE Final Result [facility] [place] [address] * (ABNORMAL) Tissue aerobic and anaerobic culture and gram stain Tissue Perineum (06/02/2025 9:26 AM CDT) Pathologist [facility] Direct Specimen Exam Stain: Few polymorphonuclear leukocytes seen. Abundant Gram Positive Bacilli Abundant Gram Negative Bacilli Abundant Gram Positive Cocci Report Final Report: Abundant Mixed aerobic and anaerobic microorganisms Includes the following: Rare Staphylococcus lugdunensis (.) [facility] Organism STAPHYLOCOCCUS LUGDUNENSIS [facility] Organism MIXED AEROBIC AND ANAEROBIC MICROORGANISMS [facility] Tissue (Perineum) 06/02/2025 9:26 AM CDT 06/02/2025 11:55 AM CDT Narrative [facility] - 06/09/2025 2:03 PM CDT Perineal deep tissue Testing performed by [facility] ([phone]) Specimens submitted from normally sterile body sites will have all bacterial morphotypes identified. Specimens that contain grossly mixed leonardo and/or are from body sites that are not normally sterile will be examined for Staphylococcus aureus, Pseudomonas aeruginosa, beta-hemolytic strep, vancomycin-resistant Enterococcus, Bacteroides, Parabacteroides, Clostridium perfringens and fungus. If any of these are isolated, the organism will be reported. Current interpretive data was last revised on 2019. Organism Antibiotic Method Susceptibility Staphylococcus lugdunensis Vancomycin INTERPRETATION Susceptible Staphylococcus lugdunensis Trimethoprim with Sulfamethoxazole INTERPRETATION Susceptible Staphylococcus lugdunensis Linezolid INTERPRETATION Susceptible Staphylococcus lugdunensis Doxycycline INTERPRETATION Susceptible Staphylococcus lugdunensis Clindamycin INTERPRETATION Susceptible Staphylococcus lugdunensis Erythromycin INTERPRETATION Resistant Staphylococcus lugdunensis Oxacillin INTERPRETATION Resistant Staphylococcus lugdunensis Cefazolin INTERPRETATION Resistant Staphylococcus lugdunensis Ceftriaxone INTERPRETATION Resistant Dari Bojorquez MD LAB MICROBIOLOGY - G ENERAL ORDERABLES Final Result Performing Organization Address [facility] de Phone Number [facility] Department [place] [address] * Mycology (fungal) culture and stain Abscess Perineum (06/02/2025 9:26 AM CDT) Direct Specimen Exam Stain: No Fungal elements seen. Report Final Report: No growth of fungus [facility] Abscess (Perineum) 06/02/2025 9:26 AM CDT 06/02/2025 11:57 AM CDT Narrative [facility] - 06/30/2025 1:15 PM CDT Right perineal fluid Testing performed by [facility] ([phone]). us Dari Bojorquez MD LAB MICROBIOLOGY - G ENERAL ORDERABLES Final Result Performing Organization Address [facility] de Phone Number [facility] [place] [address] * Mycology (fungal) culture and stain Tissue Perineum (06/02/2025 9:26 AM CDT) Direct Specimen Exam Stain: No Fungal elements seen. Report Final Report: No growth of fungus [facility] Tissue (Perineum) 06/02/2025 9:26 AM CDT 06/02/2025 11:55 AM CDT Narrative [facility] - 06/30/2025 1:15 PM CDT Perineal deep tissue Testing performed by [facility] ([phone]). Dari Bojorquez MD LAB MICROBIOLOGY - G ENERAL ORDERABLES Final Result Performing Organization Address [facility] de Phone Number [facility] Department [place] [address] * (ABNORMAL) Aerobic and anaerobic culture and gram stain Abscess Groin, right (06/02/2025 9:26 AM CDT) Direct Specimen Exam Stain: Few polymorphonuclear leukocytes seen. Moderate Gram Positive Bacilli Moderate Gram Positive Cocci Few Gram Negative Bacilli Report Final Report: Moderate Mixed aerobic and anaerobic microorganisms (.) [facility] Organism MIXED AEROBIC AND ANAEROBIC MICROORGANISMS [facility] Abscess (Groin, right) 06/02/2025 9:26 AM CDT 06/02/2025 11:57 AM CDT Narrative [facility] - 06/08/2025 3:13 PM CDT Right perineal fluid Testing performed by [facility] ([phone]) Specimens submitted from normally sterile body sites will have all bacterial morphotypes identified. Specimens that contain grossly mixed leonardo and/or are from body sites that are not normally sterile will be examined for Staphylococcus aureus, Pseudomonas aeruginosa, beta-hemolytic strep, vancomycin-resistant Enterococcus, Bacteroides, Parabacteroides, Clostridium perfringens and fungus. If any of these are isolated, the organism will be reported. Current interpretive data was last revised on 2019. us Dari Bojorquez MD LAB MICROBIOLOGY - G ENERAL ORDERABLES Final Result Performing Organization Address [facility] Co de Phone Number [facility] NASSAR Baljit [facility] Department [place] [address] * (ABNORMAL) POCT glucose (06/02/2025 9:06 AM CDT) Glucose, POC 296(H) 70 - 199 mg/dL Blood 06/02/2025 9:06 AM CDT 06/02/2025 9:06 AM CDT us Dari Bojorquez MD LAB POCT ORDERABLES - DEVICE Final Result Performing Organization Address [facility] Co de Phone Number [facility] Department [place] [address] * (ABNORMAL) POCT glucose (06/02/2025 8:35 AM CDT) Glucose, POC 286(H) 70 - 199 mg/dL Blood 06/02/2025 8:35 AM CDT 06/02/2025 8:35 AM CDT us Dari Bojorquez MD LAB POCT ORDERABLES - DEVICE Final Result Performing Organization Address [facility] de Phone Number [facility] [place] [address] * Airway (06/02/2025 8:24 AM CDT) Narrative Meme Posadas MD - 06/02/2025 8:24 AM CDT Meme Posadas MD 06/02/2025 8:25 AM Airway Patient location: OR Urgency: elective Indications for airway management: anesthesia Difficult airway: no Staff: Supervising provider: Niki Medrano MD Placed by: Resident: Meme Posadas MD Emergent airway documentation: Risks and benefits discussed: yes Consent obtained: yes Airway prep: Preoxygenated: yes Patient position: sniffing Mask difficulty assessment: 0 - not attempted Spontaneous ventilation during airway: absent Sedation level during airway: GA Final airway details: Final airway type: endotracheal airway Tube type: ETT ETT size: 7.0 mm Cuffed: yes Technique used for successful ETT placement: video laryngoscopy Devices/Methods used in placement: stylet Insertion site: oral Blade type: Jacklyn Video blade type: Moore Blade size: 3 Cormack-Lehane (video): grade I - full view of glottis Cuff inflated with: air ETT to lips: 24 cm Placement verified by: auscultation and CO2 detection Airway secured with: silk tape Number of attempts: 1 Planned trial extubation: yes us Niki Medrano MD ANESTHESIA ORDERABLES Final Re sult * Critical Care (06/02/2025 6:48 AM CDT) Narrative Rajesh Jeffries MD - 06/02/2025 6:48 AM CDT Rajesh Jeffries MD 06/03/2025 6:49 AM Critical Care Performed by: Rajesh Jeffries MD Authorized by: Rajesh Jeffries MD CRITICAL CARE: Team: SICU BLUE Shift: AM Level of Billing: Critical Care My time spent with this patient was 30 minutes: Critical Provider Statement: I have seen and examined the patient on this day of service. I have reviewed and confirmed the history, physical exam, laboratory and radiologic data as documented in the signed ICU note. I have reviewed and discussed my treatment plan with the ICU team and other medical/healthcare management consultant staff, making frequent assessments and decisions regarding this patient's complex medical care. Critical Care time was exclusive of time spent performing separately billed procedures, treating other patients, and teaching. This time was in addition to and separate from critical care provided by other practitioners in my group on this day of service. Critical Care was necessary to treat or prevent imminent or life-threatening deterioration of the following conditions: us Rajesh Jeffries MD IN CLINIC/BEDSIDE ORDERABLE S Final Result * (ABNORMAL) POCT glucose (06/02/2025 6:36 AM CDT) Glucose, POC 388(H) 70 - 199 mg/dL Blood 06/02/2025 6:36 AM CDT 06/02/2025 6:36 AM CDT us Dari Bojorquez MD LAB POCT ORDERABLES - DEVICE Final Result [facility] [place] [address] * Check Sample (06/02/2025 6:11 AM CDT) ABO Rh B Positive [facility] OTHER 06/02/2025 6:11 AM CDT 06/02/2025 6:29 AM CDT Dari Bojorquez MD LAB BLOOD ORDERABLES Final Result Performing Organization Address City/[facility]/ZIP Co de Phone Number [facility] [place] [address] [facility] * (ABNORMAL) Urinalysis reflex to microscopic and culture Urine (06/02/2025 6:11 AM CDT) Color, ur Straw Yellow Clarity, ur Clear Clear [facility] Specific gravity, ur 1.035(H) 1.003 - 1.030 [facility] pH, urine 6.0 [facility] Comment: Interpretive Data U rine pH is affected by diet, medications, systemic acid-base disturbances, and renal tubular function. pH may affect urinary stone formation. For example, urine pH below 6.0 may help reduce the tendency for calcium phosphate stones and pH greater than 6.0 may reduce the tendency for uric acid stone formation. Source: [facility] Current Interpretive Data was last revised on 2017 Protein, ur ql 1+(A) Negative [facility] Glucose, ur ql 4+(A) Negative [facility] Ketones, ur 1+(A) Negative [facility] Bilirubin, ur Negative Negative [facility] Blood, ur Negative Negative [facility] Urobilinogen, ur <2.0 <2.0 mg/dL [facility] Nitrite, ur Negative Negative [facility] Leukocyte esterase, ur Negative Negative [facility] UA reflex comment Reflex to microscopic UA will be performed. [facility] Urine 06/02/2025 6:11 AM CDT 06/02/2025 6:19 AM CDT us Mónica Hayes DO LAB MICROBIOLOGY - GENERAL ORDERABLES Final Result Performing Organization Address [facility]/ZIP Co de Phone Number [facility] Department [place] [address] * (ABNORMAL) Urinalysis, microscopic only (06/02/2025 6:11 AM CDT) WBC, ur 6-10(A) 0 - 5 /HPF RBC, ur 0-2 0 - 2 /HPF [facility] Epithelial cells, squamous, ur 1-5 0 - 5 /HPF [facility] Yeast, ur TRACE [facility] Culture Reflex Comment Reflex conditions for urine culture (WBC >10) not met. [facility] Urine 06/02/2025 6:11 AM CDT 06/02/2025 6:19 AM CDT Mónica Hayes DO LAB URINE ORDERABLE S Final Result Performing Organization Address [facility] de Phone Number [facility] Department [place] [address] * (ABNORMAL) POCT ketone, blood (06/02/2025 5:25 AM CDT) Beta-Hydroxybut yrate, POC 2.1(H) 0.0 - 0.5 mmol/L Blood 06/02/2025 5:25 AM CDT 06/02/2025 5:25 AM CDT Sol Barba MD LAB POCT ORDERABLES - DEVIC E Final Result Performing Organization Address City/[facility]/ZIP Co de Phone Number [facility] Department [place] [address] * (ABNORMAL) POCT glucose (06/02/2025 5:24 AM CDT) Glucose, POC 378(H) 70 - 199 mg/dL Blood 06/02/2025 5:24 AM CDT 06/02/2025 5:24 AM CDT Sol Barba MD LAB POCT ORDERABLES - DEVIC E Final Result VIKKI NASSAR [facility] Department [place] [address] * Sepsis Lactate w/ Reflex (06/02/2025 5:22 AM CDT) Sepsis Lactate 1.9 0.7 - 2.0 mmol/L Blood 06/02/2025 5:22 AM CDT 06/02/2025 5:36 AM CDT us Mónica Hayes DO LAB BLOOD ORDERABLE S Final Result Performing Organization Address City/[facility] Co de Phone Number [facility] Department [place] [address] * (ABNORMAL) eGFR (06/02/2025 5:22 AM CDT) eGFR 55(L) >=60 mL/min/1. 73 m2 Comment: Interpretive Data Reference Interval Normal >/= 90 mL/min/1.73m2 Mildly decreased* 60 - 89 mL/min/1.73m2 Mildly to moderately decreased 45 - 59 mL/min/1.73m2 Moderately to severely decreased 30 - 44 mL/min/1.73m2 Severely decreased 15 - 29 mL/min/1.73m2 Kidney Failure < 15 mL/min/1.73m2 *Relative to young adult level Estimated glomerular filtration rate is determined by the 2020 CKD-EPI equation recommended by the National Kid[employer] (A Unifying Approach to GFR Estimation: Recommendations of the NKF-ASK Task Force on Reassessing the Inclusion of Race in Diagnosing Kidney Disease, JASN 2020). The CKD-EPI equation should not be used for patients with unstable renal function and has not been validated in children and those over 70. Current interpretive data was last reviewed 2021. Blood 06/02/2025 5:22 AM CDT 06/02/2025 6:02 AM CDT us Dari Bojorquez MD LAB BLOOD ORDERABLES Final Result VIKKI NASSAR [facility] Department [place] [address] * (ABNORMAL) Differential, auto (06/02/2025 5:22 AM CDT) Neutrophil abs 25.43(H) 1.50 - 6.50 K/cumm Imm gran abs 0.68(H) 0.00 - 0.10 K/cumm [facility] Lymphocyte abs 1.47 0.80 - 3.30 K/cumm [facility] Monocyte abs 1.31(H) 0.20 - 0.80 K/cumm [facility] Eosinophil abs 0.05 0.00 - 0.50 K/cumm [facility] Basophil abs 0.15(H) 0.00 - 0.10 K/cumm [facility] Neutrophil pct 87.4 % [facility] Comment: Interpretive Data Percent cell count reference ranges are not reported, since discordance with absolute values may lead to misinterpretation of CBC data. Current Interpretive Data was last revised on 2018. Imm gran pct 2.3 % [facility] Comment: Interpretive Data Percent cell count reference ranges are not reported, since discordance with absolute values may lead to misinterpretation of CBC data. Current Interpretive Data was last revised on 2018. Lymphocyte pct 5.1 % [facility] Comment: Interpretive Data Percent cell count reference ranges are not reported, since discordance with absolute values may lead to misinterpretation of CBC data. Current Interpretive Data was last revised on 2018. Monocyte pct 4.5 % [facility] Comment: Interpretive Data Percent cell count reference ranges are not reported, since discordance with absolute values may lead to misinterpretation of CBC data. Current Interpretive Data was last revised on 2018. Eosinophil pct 0.2 % [facility] Comment: Interpretive Data Percent cell count reference ranges are not reported, since discordance with absolute values may lead to misinterpretation of CBC data. Current Interpretive Data was last revised on 2018. Basophil pct 0.5 % [facility] Comment: Interpretive Data Percent cell count reference ranges are not reported, since discordance with absolute values may lead to misinterpretation of CBC data. Current Interpretive Data was last revised on 2018. Blood 06/02/2025 5:22 AM CDT 06/02/2025 6:01 AM CDT Mónica Hayes LAB BLOOD ORDERABLE S Final Result Performing Organization Address City/[facility]/ZIP Co de Phone Number [facility] Department [place] [place] [address] * (ABNORMAL) CBC with auto differential (06/02/2025 5:22 AM CDT) WBC 29.09(H) 3.80 - 9.90 K/cumm Hgb 12.9 11.9 - 15.5 g/dL [facility] Hct 37.6 35.6 - 45.5 % [facility] Plt 311 150 - 400 K/cumm [facility] MPV 11.2 9.1 - 12.3 fL [facility] RBC 4.50 3.90 - 5.20 M/cumm [facility] MCV 83.6 81.3 - 96.4 fL [facility] MCH 28.7 27.1 - 33.3 pg [facility] MCHC 34.3 32.3 - 35.7 g/dL [facility] RDW CV 13.4 11.1 - 14.9 % [facility] RDW SD 41.2 35.7 - 48.1 fL [facility] NRBC abs 0.00 0.00 - 0.01 K/cumm [facility] Blood 06/02/2025 5:22 AM CDT 06/02/2025 6:01 AM CDT us Mónica Hayes DO LAB BLOOD ORDERABLE S Final Result Performing Organization Address City/[facility]/ZIP Co de Phone Number [facility] [place] [address] * Blood culture Blood Peripheral (06/02/2025 5:22 AM CDT) Report Final Report: No growth Blood (Peripheral) 06/02/2025 5:22 AM CDT 06/02/2025 5:38 AM CDT Narrative VIKKI NASSAR - 06/06/2025 7:00 AM CDT From a different site than #1. Draw Blood cultures before administration of Antibiotics Collection->Peripheral Received two aerobic blood culture bottles 1. Blood cultures are incubated for 4 days on a continuously monitored blood culture system. The first report of a negative culture is issued within 24 hours of receipt of the specimen in the laboratory. 2. Positive culture results are reported as soon as they are detected. 3. The most important factor for detection of microbes in the setting of bloodstream infection is the volume of blood submitted for culture. Failure to collect an optimal blood volume can result in false negative blood cultures. 4. For pediatric patients, the recommended blood volume to collect follows a weight based strategy. See the electronic test catalog for collection instructions. 5. For positive blood cultures, a rapid molecular test may be performed for organism identification using the [employer]elso ePlex blood culture identification panel for gram positive (BCID-GP) and gram negative (BCID-GN) organisms. This nucleic acid amplification test detects microbial DNA in positive blood culture broth. This assay has been cleared by the [place] Food and Drug Administration and its performance characteristics have been verified by the [facility] Microbiology Laboratory. For questions about this culture, contact the Microbiology Laboratory at [phone]. Interpretive data was last revised on 24. Mónica Hayes DO LAB MICROBIOLOGY - GENERAL ORDERABLES Final Result VIKKI [facility] [place] [address] * Blood culture Blood Peripheral (06/02/2025 5:22 AM CDT) Report Final Report: No growth Blood (Peripheral) 06/02/2025 5:22 AM CDT 06/02/2025 5:38 AM CDT Narrative VIKKI JACKSON - 06/06/2025 7:00 AM CDT Draw Blood cultures before administration of Antibiotics Collection->Peripheral Received two anaerobic blood culture bottles 1. Blood cultures are incubated for 4 days on a continuously monitored blood culture system. The first report of a negative culture is issued within 24 hours of receipt of the specimen in the laboratory. 2. Positive culture results are reported as soon as they are detected. 3. The most important factor for detection of microbes in the setting of bloodstream infection is the volume of blood submitted for culture. Failure to collect an optimal blood volume can result in false negative blood cultures. 4. For pediatric patients, the recommended blood volume to collect follows a weight based strategy. See the electronic test catalog for collection instructions. 5. For positive blood cultures, a rapid molecular test may be performed for organism identification using the [employer]el[employer]Plex blood culture identification panel for gram positive (BCID-GP) and gram negative (BCID-GN) organisms. This nucleic acid amplification test detects microbial DNA in positive blood culture broth. This assay has been cleared by the [place] Food and Drug Administration and its performance characteristics have been verified by the [facility] Microbiology Laboratory. For questions about this culture, contact the Microbiology Laboratory at [phone]. Interpretive data was last revised on 24. Mónica Hayes DO LAB MICROBIOLOGY - GENERAL ORDERABLES Final Result VIKKI NASSAR [facility] Department [place] [address] * (ABNORMAL) aPTT (06/02/2025 5:22 AM CDT) [facility] aPTT 17(L) 26 - 38 sec Comment: No clot detected in sample - [id number] - 06/02/25, 7:10 AM Interpretive Data Heparin therapeutic range: 66.0 - 100.0 seconds. Range based on correlation with therapeutic heparin activity range of 0.3 - 0.7 Units/mL. Current interpretive data was last revised on 2023. Blood 06/02/2025 5:22 AM CDT 06/02/2025 5:42 AM CDT Mónica Hayes DO LAB BLOOD ORDERABLE S Final Result [facility] [place] [address] * (ABNORMAL) Erythrocyte sedimentation rate (06/02/2025 5:22 AM CDT) Erythrocyte sedimentation rate 44(H) 1 - 20 mm/hr Blood 06/02/2025 5:22 AM CDT 06/02/2025 6:01 AM CDT Mónica Hayes LAB BLOOD ORDERABLE S Final Result Performing Organization Address [facility] [place] [address] * Protime-INR (06/02/2025 5:22 AM CDT) Pathologist [facility] PT 12.2 10.2 - 13.5 sec INR 1.08 0.90 - 1.20 [facility] Comment: Interpretive data Oral anticoagulant therapeutic ranges: Venous thromboembolism prophylaxis or treatment: 2.0-3.0 CARDIOLOGY Standard range: 2.0-3.0 High-intensity range: 2.5-3.5 Refer to indication-specific guidelines for appropriate target ranges for prosthetic heart valve replacement. Current interpretive data was last revised on 2019. Blood 06/02/2025 5:22 AM CDT 06/02/2025 5:42 AM CDT Mónica Hayes LAB BLOOD ORDERABLE S Final Result Performing Organization Address [facility] [place] [address] * Type and screen (06/02/2025 5:22 AM CDT) ABO Rh B Positive James, indirect Negative [facility] Blood 06/02/2025 5:22 AM CDT 06/02/2025 5:44 AM CDT Narrative [facility] - 06/02/2025 6:38 AM CDT Has the patient had Daratumumab or Isatuximab in the past 6 months?->Unknown Mónica Hayes DO LAB BLOOD BANK TEST ORDERABLES Final Result Performing Organization Address City/[facility] Co de Phone Number [facility] Department [place] [address] * (ABNORMAL) CRP (acute phase) (06/02/2025 5:22 AM CDT) Pathologist [facility] CRP 277.4(H) <=10.0 mg/L Comment:Repeated on Dilution Blood 06/02/2025 5:22 AM CDT 06/02/2025 5:42 AM CDT Mónica Hayes DO LAB BLOOD ORDERABLE S Final Result Performing Organization Address [facility] de Phone Number [facility] [place] [address] * (ABNORMAL) Blood gas, venous (06/02/2025 5:22 AM CDT) pH, Venous 7.35 7.32 - 7.43 PCO2, Venous 31(L) 40 - 50 mmHg [facility] PO2, Venous 49 mmHg [facility] Comment: Interpretive Data No Reference Range Established Current Interpretive Data was last revised on 2018. HCO3 Venous, Calculated 18(L) 20 - 30 mmol/L [facility] BE, venous -7 mmol/L [facility] Comment: Interpretive Data No Reference Range Established Current Interpretive Data was last revised on 2018. Blood 06/02/2025 5:22 AM CDT 06/02/2025 5:36 AM CDT Dari Bojorquez MD LAB BLOOD ORDERABLES Final Result [facility] Department [place] [address] * (ABNORMAL) Comprehensive metabolic panel (06/02/2025 5:22 AM CDT) Sodium 127(L) 135 - 145 mmol/L Potassium, pl 4.7 3.3 - 4.9 mmol/L [facility] Comment:Hemolyzed; Potassium value may be falsely elevated by as much as 0.3-0.5 mmol/L. Suggest redraw and reanalysis. Chloride 93(L) 97 - 110 mmol/L [facility] CO2 15(L) 22 - 32 mmol/L [facility] Anion gap 19(H) 2 - 15 mmol/L [facility] BUN 29(H) 6 - 25 mg/dL [facility] Creatinine 1.22(H) 0.60 - 1.10 mg/dL [facility] Glucose 371(H) 70 - 199 mg/dL [facility] Comment: Interpretive Data Fasting glucose >/= 126 mg/dl is diagnostic for diabetes. Fasting is defined as no caloric intake for at least 8 hours. Fasting glucose between 100 mg/dl to 125 mg/dl is diagnostic of prediabetes. In a patient with classic symptoms of hyperglycemia or hyperglycemic crisis, a random glucose >/= 200 mg/dl is diagnostic for diabetes. In the absence of unequivocal hyperglycemia, results should be confirmed by repeat testing. The classification and Diagnosis of Diabetes Diabetes Care 202; 46: S19-S40. Current interpretive data was last revised 2022. Calcium 8.7 8.5 - 10.3 mg/dL [facility] Bilirubin, total 0.4 0.1 - 1.2 mg/dL [facility] Protein, pl 6.8 6.5 - 8.5 g/dL [facility] Albumin 2.8(L) 3.5 - 5.0 g/dL [facility] Alk phos 139(H) 40 - 130 Units/L [facility] ALT 20 7 - 45 Units/L [facility] AST 27 10 - 45 Units/L [facility] Comment:Hemolyzed; result ma y be falsely elevated Blood 06/02/2025 5:22 AM CDT 06/02/2025 5:42 AM CDT Dari Bojorquez MD LAB BLOOD ORDERABLES Final Result [facility] Department [place] [address] * CT Body Outside Consult (06/02/2025 5:21 AM CDT) Anatomical Region Laterality Modality Body N/A Computed Tomogra phy 06/02/2025 5:45 AM CDT Impressions 06/02/2025 11:11 AM CDT Findings suspicious for necrotizing soft tissue infection involving the right buttock, perineum, and right labia majora. No drainable fluid collection. The findings, conclusions and recommendations within this report do not replace the initial findings, conclusions and recommendations made at the facility where the study was performed based upon the imaging and clinical condition at that time. Comparison with the prior report and clinical history is necessary. The provided images may or may not represent the [employer] source data set and thus may contain changes that may lower the accuracy of this second-opinion interpretation. Dictated by: Bart Winslow MD The radiology attending physician has personally reviewed this study, and had reviewed and/or edited this written report and agrees with it. Electronically signed by: Benedicto Dsouza MD Narrative 06/02/2025 11:11 AM CDT EXAMINATION: RADIOLOGY CONSULTATION ON OUTSIDE IMAGING STUDY STUDY INITIALLY PERFORMED: 06/02/2025 at [facility]. TYPE OF STUDY: Multiple CT images of the abdomen and pelvis with intravenous contrast are provided at the time of this interpretation. CONTRAST ROUTE: Contrast was administered via the intravenous route. The protocol was adequate to address the clinical question. The outside final report was not available at the time of this second opinion interpretation. TYPE OF CONSULTATION: Consult on outside imaging study with images submitted through Outside Image Sharing Service DATE OF CONSULTATION: 06/02/2025 5:38 AM HISTORY: Concern for necrotizing fasciitis COMPARISON: None available. FINDINGS: Normal heart size. No pericardial effusion. Motion in the imaged lung bases. Within this limitation, the imaged lung bases are clear. No pleural effusion. Small hiatal hernia. No suspicious liver lesions. No intrahepatic or extrahepatic biliary ductal dilation. The portal, splenic, and superior mesenteric veins are patent. Cholelithiasis without evidence of cholecystitis. Normal pancreas, spleen, bilateral adrenal glands the kidneys enhance symmetrically. No hydronephrosis. Normal urinary bladder. The uterus is present and anteverted. No suspicious adnexal mass. Normal course and caliber of large bowel. Normal appendix. No evidence of small bowel obstruction. No abdominal or pelvic lymphadenopathy. Prominent right inguinal lymph nodes are likely reactive. For example, a 1.7 cm right inguinal lymph node on series 4 image 199. Extending along the right aspect of the perineum into the patient's pannus and into the right labia majora, there is stranding with extensive locules of gas. There is no drainable fluid collection. No suspicious osseous lesions. Procedure Note Benedicto Dsouza MD - 06/02/2025 EXAMINATION: RADIOLOGY CONSULTATION ON OUTSIDE IMAGING STUDY STUDY INITIALLY PERFORMED: 06/02/2025 at [facility]. TYPE OF STUDY: Multiple CT images of the abdomen and pelvis with intravenous contrast are provided at the time of this interpretation. CONTRAST ROUTE: Contrast was administered via the intravenous route. The protocol was adequate to address the clinical question. The outside final report was not available at the time of this second opinion interpretation. TYPE OF CONSULTATION: Consult on outside imaging study with images submitted through Outside Image Sharing Service DATE OF CONSULTATION: 06/02/2025 5:38 AM HISTORY: Concern for necrotizing fasciitis COMPARISON: None available. FINDINGS: Normal heart size. No pericardial effusion. Motion in the imaged lung bases. Within this limitation, the imaged lung bases are clear. No pleural effusion. Small hiatal hernia. No suspicious liver lesions. No intrahepatic or extrahepatic biliary ductal dilation. The portal, splenic, and superior mesenteric veins are patent. Cholelithiasis without evidence of cholecystitis. Normal pancreas, spleen, bilateral adrenal glands the kidneys enhance symmetrically. No hydronephrosis. Normal urinary bladder. The uterus is present and anteverted. No suspicious adnexal mass. Normal course and caliber of large bowel. Normal appendix. No evidence of small bowel obstruction. No abdominal or pelvic lymphadenopathy. Prominent right inguinal lymph nodes are likely reactive. For example, a 1.7 cm right inguinal lymph node on series 4 image 199. Extending along the right aspect of the perineum into the patient's pannus and into the right labia majora, there is stranding with extensive locules of gas. There is no drainable fluid collection. No suspicious osseous lesions. IMPRESSION: Findings suspicious for necrotizing soft tissue infection involving the right buttock, perineum, and right labia majora. No drainable fluid collection. The findings, conclusions and recommendations within this report do not replace the initial findings, conclusions and recommendations made at the facility where the study was performed based upon the imaging and clinical condition at that time. Comparison with the prior report and clinical history is necessary. The provided images may or may not represent the [employer] source data set and thus may contain changes that may lower the accuracy of this second-opinion interpretation. Dictated by: Bart Winslow MD The radiology attending physician has personally reviewed this study, and had reviewed and/or edited this written report and agrees with it. Electronically signed by: Benedicto Dsouza MD Mónica Hayes DO IMG CT PROCEDURES F inal Result * (ABNORMAL) Diabetic Eye Exam (11/24/2021) Impressions Abby Arenas - 11/24/2021 Mild nonproliferative diabetic retinopathy Follow up in 6 months ([facility]) (Scanned document in media) Historical Provider HEALTH MAINTENANCE Final Result * Screening Mammogram Bilateral W Tim (11/14/2021 9:21 AM VACUUM REPAIRER) Anatomical Region Laterality Modality Breast Bilateral Mammography Narrative 11/17/2021 9:31 AM VACUUM REPAIRER Mammogram Technique: Bilateral Digital Breast Tomosynthesis, Bilateral C-view 2D Screening mammogram. Views obtained: bilateral craniocaudal and bilateral mediolateral oblique. Computer Aided Detection was performed. Mammogram Findings: The present examination has been compared to prior imaging studies performed at [facility] on 04/24/2020, and at [facility] on 03/23/2017. The breasts are almost entirely fatty. There is no suspicious abnormality in either breast. Impression: There is no mammographic evidence of malignancy. Annual screening mammography is recommended. OVERALL FINAL ASSESSMENT: BI-RADS CATEGORY 1: Negative. Procedure Note Noemy Richardson MD - 11/17/2021 Mammogram Technique: Bilateral Digital Breast Tomosynthesis, Bilateral C-view 2D Screening mammogram. Views obtained: bilateral craniocaudal and bilateral mediolateral oblique. Computer Aided Detection was performed. Mammogram Findings: The present examination has been compared to prior imaging studies performed at [facility] on 04/24/2020, and at [facility] on 03/23/2017. The breasts are almost entirely fatty. There is no suspicious abnormality in either breast. Impression: There is no mammographic evidence of malignancy. Annual screening mammography is recommended. OVERALL FINAL ASSESSMENT: BI-RADS CATEGORY 1: Negative. us Melodie Mckinney MD IMG MAMMO PROCEDURES F inal Result * (ABNORMAL) Albumin Creatinine Ratio, Urine (11/05/2021 9:19 AM VACUUM REPAIRER) Creatinine, ur 125 20 - 275 mg/dL [facility] Microalbumin, ur 7.3 See Note: mg/dL [facility] Comment: Reference Range: Reference Range Not established Microalbumin/creat ratio 58(H) <30 mcg/mg creat [facility] Comment: The ADA defines abnormalities in albumin excretion as follows: Albuminuria Category Result (mcg/mg creatinine) Normal to Mildly increased <30 Moderately increased 30-299 Severely increased > OR = 300 The ADA recommends that at least two of three specimens collected within a 3-6 month period be abnormal before considering a patient to be within a diagnostic category. Urine 11/05/2021 9:19 AM VACUUM REPAIRER 11/06/2021 6:41 AM VACUUM REPAIRER Melodie Mckinney MD LAB URINE ORDERABLES F inal Result [facility] [id number] [id number] * DIABETES FOOT EXAM (07/26/2019) Diabetic Foot Exam Normal us Historical Provider HEALTH MAINTENANCE Final Result from Last 3 Months or Most Recently Relevant to Health Maintenance Insurance [facility] Member Subscriber Plan / Payer (Ef fective 2024-Present) Name:Dorian Montiel Relation to Subscriber:Self Name:Dorian Montiel Payer ID:[id number] (NAIC) Group ID:[id number] Type:HEALTHCARE/EXCHANGE Address: [address] [facility] Advance Directives For more information, please contact: [phone] Documents on File Type Date Recorded Patient Porcelain Enamel Laborer Expl anation ADVANCE DIRECTIVE 06/27/2025 5:41 PM POWER OF ROOF PROMENADE TILE SETTER-MEDICAL ADVANCE DIRECTIVE 06/06/2025 2:19 PM Power of Pipe Recovery Specialist * Full Code (Latest Code Status on File) Date Activated Date Inactivated Comments 07/14/2025 7:32 PM 07/26/2025 7:55 PM * Full Code Date Activated Date Inactivated Comments 06/02/2025 1:23 PM 06/22/2025 5:24 PM Care Teams Phonograph Needle Tip Maker Relationship Specialty Start Date End Date Rosie Aguilera DO [address] [place] [address] PCP - General 06/04/25 Chip Hagen MD [address] [place] [address] Consulting Physician Infectious Diseases 07/26/25 Chad Castellon MD [address] [place] [address] [place] [address] Surgeon General Surgery 07/26/25
--- OUTSIDE RECORDS SUMMARY | 2025-08-21 17:00 | XMS_ITS | Encounter Summary ---
Author Organization [facility] Address [facility] [place] [address] Care Team Providers Care Marketing And Communications Officer Name Role Phone Rosie Aguilera DO Primary Care Provider [phone] Encounter Details Date Type Department Care Team (Late st Contact Info) Description 06/01/2025 MyChart Message Enc [facility] Medical Group Family & Internal Medicine [address] [phone] Rosie Aguilera DO 3 [facility]. [facility] [address] [place], [place] [phone] Abcess Social History Tobacco Use Types Packs/Day [...] PM CDT Legal Sex Female 8:24 AM GENERAL INTERN Gender Identity Female 05/21/2025 1:18 PM CDT Sexual Orientation Not on file documented as of this encounter Plan of Treatment Upcoming Encounters Date Type Department Care Team (Late st Contact Info) Description 08/30/2025 11:00 AM GENERAL INTERN Office Visit [facility] [facility], [facility] [place] [address] [place], [place] [phone] Matthew Agustin MD 3 [place] [address] 12/26/2025 10:20 AM CDT Office Visit [facility] Medical Group Pulmonology Specialty Clinic - [address] [place] [address] Sebastien Naik MD [address] [address] documented as of this encounter Visit Diagnoses Not on filedocumented in this encounter Additional Health Concerns Assessment Noted Time PHQ-9 Depression Total Score: 8 05/21/20 23 1:09 PM CDT documented as of this encounter Care Teams Marketing And Communications Officer Relationship Specialty Start Date End Date Rosie Aguilera DO [address] [place] [address] PCP - General FAMILY PRACTICE 05/21/25 documented as of this encounter
--- OUTSIDE RECORDS SUMMARY | 2025-08-21 17:00 | XMS_ITS | Encounter Summary ---
Author Organization [facility] Address [address] [place] [address] Phone Care Team Providers Care Resident Assistant Name Role Phone Rosie Aguilera DO Primary Care Provider [phone] Encounter Details Date Type Department Care Team (Late st Contact Info) Description 06/29/2025 Nursing Facility [facility] [place] [address] Balaji Thrasher MD [address] [place] [address] Social History Tobacco Use Types Packs/Day Years Used Date Smoking Tobacco: Never Assessed Comments Unknown Sex and Gender Information Value Date Recorded Sex Assigned at Not on file Legal Sex Female 12:09 PM CDT Gender Identity Not on file Sexual Orientation Not on file documented as of this encounter Plan of Treatment Not on file documented as of this encounter Visit Diagnoses Not on filedocumented in this encounter Care Teams Resident Assistant Relationship Specialty Start Date End Date Rosie Aguilera DO [address] [place] [phone] PCP - General Family Medicine 07/02/25 documented as of this encounter
--- OUTSIDE RECORDS SUMMARY | 2025-08-21 17:00 | XMS_ITS | Encounter Summary ---
Author Organization [facility] Address [facility] [place] [address] Care Team Providers Care Author Name Role Phone Rosie Aguilera DO Primary Care Provider [phone] Encounter Details Date Type Department Care Team (Latest Contact Info) Description 04/12/2023 MyChart Message Enc [facility] Medical Group Multispecialty Care - [place] [address] [address] [place] [address] Sarthak Munguia MD [address] [place] [address] [address] [place] [address] Need a Refill on Farxiga 5mg STEWART Social History Tobacco Use Types Packs/Day Years Used Date Smoking Tobacco: Never Smokeless Tobacco: Never Comments No Sex and Gender Information Value Date Recorded Sex Assigned at Female 05/21/2025 1:18 PM CDT Legal Sex Female 8:24 AM OCCUPATIONAL THERAPIST PER DIEM Gender Identity Female 05/21/2025 1:18 PM CDT Sexual Orientation Not on file documented as of this encounter Plan of Treatment Upcoming Encounters Date Type Department Care Team (Late st Contact Info) Description 08/30/2025 11:00 AM OCCUPATIONAL THERAPIST PER DIEM Office Visit [facility] [place] [address] [place] [address] Matthew Agustin MD 3 [place] [address] 12/26/2025 10:20 AM CDT Office Visit [facility] Medical Group Pulmonology Specialty Clinic - [address] [place] [address] Sebastien Naik MD [address] [place] [address] documented as of this encounter Visit Diagnoses Not on filedocumented in this encounter Care Teams Author Relationship Specialty Start Date End Date Rosie Aguilera DO [facility] [place] [address] PCP - General FAMILY PRACTICE 05/21/25 documented as of this encounter
--- OUTSIDE RECORDS SUMMARY | 2025-08-21 17:00 | XMS_ITS | Encounter Summary ---
Author Organization [facility] Address [facility]6 [place] [address] Care Team Providers Care Healthcare Consulting Manager Name Role Phone Rosie Aguilera DO Primary Care Provider [phone] Encounter Details Date Type Department Care Team (Late Contact Info) Description 06/03/2025 MyChart Message Enc [facility] Medical Group Family & Internal Medicine [address] [phone] Rosie Aguilera DO 3 [facility]. [facility] [address] [place], [place] [phone] Abcess-Yeast Infection Visit on 06-01-25 Social History Tobacco Use Types Packs/Day Years [...] PM CDT Legal Sex Female 8:24 AM DESIGN STUDIO CONSULTANT Gender Identity Female 05/21/2025 1:18 PM CDT Sexual Orientation Not on file documented as of this encounter Plan of Treatment Upcoming Encounters Date Type Department Care Team (Late st Contact Info) Description 08/30/2025 11:00 AM DESIGN STUDIO CONSULTANT Office Visit [facility] [place] [facility], [facility] [address] [place], [place] [phone] Matthew Agustin MD 3 [place] [address] 12/26/2025 10:20 AM CDT Office Visit [facility] Medical Group Pulmonology Specialty Clinic - [address] [place] [address] Sebastien Naik MD [address] [address] documented as of this encounter Visit Diagnoses Not on filedocumented in this encounter Additional Health Concerns Assessment Noted Time PHQ-9 Depression Total Score: 8 05/21/20 23 1:09 PM CDT documented as of this encounter Care Teams Healthcare Consulting Manager Relationship Specialty Start Date End Date Rosie Aguilera DO [address] [place] [phone] PCP - General FAMILY PRACTICE 05/21/25 documented as of this encounter
--- NOTE | 2025-08-21 18:04 | ED.WOUNDLAC ---
HPI - Wound/Laceration General Chief Complaint: Wound/Laceration <Caitie Izaguirre MD - Last Filed: 08/21/25 18:08> Stated Complaint: MRSA on groin <Caitie Izaguirre MD - Last Filed: 08/21/25 18:08> Time Seen by Provider: 08/21/25 17:57 <Caitie Izaguirre MD - Last Filed: 08/21/25 18:08> History of Present Illness HPI narrative: 49F who had history of necrotizing fasciitis requiring multiple surgeries and debridements presents here with increasing discharge the last 2-3 days was told that it was MRSA positive and come to the emergency room. She is already on daily prophylactic dose of doxycycline. <Caitie Izaguirre MD - Last Filed: 08/21/25 18:08> Related Data Allergies/Adverse Reactions: Allergies Allergy/AdvReac Type Severity Reaction Status Date / Time No Known Allergies Allergy Verified 08/21/25 16:42 <Caitie Izaguirre MD - Last Filed: 08/21/25 18:08> Review of Systems Review of Systems: All systems reviewed & are unremarkable except as noted in HPI and below <Caitie Izaguirre MD - Last Filed: 08/21/25 18:08> [facility] Past Medical History Medical History: Medical History (Updated 08/21/25 @ 18:08 by Caitie Izaguirre MD) History of diabetes mellitus <Caitie Izaguirre MD - Last Filed: 08/21/25 18:08> Exam Narrative: EXAMINATION OF ORGAN SYSTEMS/BODY AREAS: Constitutional: Vital signs per nursing GENERAL:[No acute distress, non-toxic appearing.] HEAD: Normal with no signs of head trauma. EYES: EOMI, conjunctiva normal ENT: Hearing grossly intact LUNGS: Nonlabored breathing. HEART: [Regular rate and rhythm] ABD: [Soft], [nontender to palpation] EXT: Normal range of motion SKIN: Open wound right groin, malodorous, with some yellowish discharge. No significant tenderness, no obvious crepitus NEURO: [Alert and oriented x 3. No gross focal sensory or strength deficits.] PSYCH: Normal affect <Caitie Izaguirre MD - Last Filed: 08/21/25 18:08> Course Course Emergency Course: ZYCH: Patient signed out to me pending CT of the pelvis. CT abdomen pelvis did not show any signs of necrotizing fasciitis. CT did show fat stranding in the right groin which is consistent with the patient's infection on exam. Per the patient she had cultures taken by primary care physician which were positive for MRSA. She has been started on vancomycin. I reach out to [facility] and they directed me to [facility] where it itches where she had her last admission. Case was discussed with Dr. Ramon. he requested we start her on cefepime. She has been started on cefepime. She is now waiting transfer to [facility]. <Sameer Hickey MD - Last Filed: 08/21/25 21:36> Vital Signs Vital signs: Vital Signs Temperature 97.8 F 08/21/25 16:39 Pulse Rate 85 08/21/25 16:39 Respiratory Rate 18 08/21/25 16:39 Blood Pressure 134/58 L 08/21/25 16:39 Pulse Oximetry 99 08/21/25 16:39 Temperature 97.8 F 08/21/25 16:39 Pulse Rate 88 08/21/25 21:00 Respiratory Rate 12 08/21/25 21:00 Blood Pressure 126/61 08/21/25 21:00 Pulse Oximetry 97 08/21/25 21:00 <Caitie Izaguirre MD - Last Filed: 08/21/25 18:08> Vital Signs Temperature 97.8 F 08/21/25 16:39 Pulse Rate 85 08/21/25 16:39 Respiratory Rate 18 08/21/25 16:39 Blood Pressure 134/58 L 08/21/25 16:39 Pulse Oximetry 99 08/21/25 16:39 Temperature 97.8 F 08/21/25 16:39 Pulse Rate 88 08/21/25 21:00 Respiratory Rate 12 08/21/25 21:00 Blood Pressure 126/61 08/21/25 21:00 Pulse Oximetry 97 08/21/25 21:00 <Sameer Hickey MD - Last Filed: 08/21/25 21:36> MDM - Wound/Laceration MDM Narrative Medical decision making narrative: Patient presenting here with concern for necrotizing fasciitis or other infection, she still has a wound from several months ago that has been healing but and started draining and was pursued positive, on exam there is some yellowish discharge but no significant tenderness, crepitus, or obvious necrotic tissue. Will start her on antibiotics at this time, obtain CT for further evaluation. Signed out to oncoming ER physician <Caitie Izaguirre MD - Last Filed: 08/21/25 18:08> Lab Data Result diagrams: 08/21/25 18:43 08/21/25 18:43 <Caitie Izaguirre MD - Last Filed: 08/21/25 18:08> Labs: Lab Results 08/21/25 08/21/25 08/21/25 Range/Units 18:42 18:43 19:39 WBC 15.7 H (4.5-10.0) K/mm3 RBC 4.71 (4.2-5.4) M/mm3 Hgb 11.8 L (12.0-15.0) g/dL Hct 38.8 (37.0-47.0) % MCV 82.4 (80-100) fl MCH 25.1 L (26-34) pg MCHC 30.4 L (32-36) g/dl RDW 16.1 H (11.5-14.5) % Plt Count 450 H (150-375) k/mm3 MPV 9.6 (7.4-10.4) fl Immature Gran % (Auto) 0.3 (0-0.5) % Neut % (Auto) 63.0 (45.5-73.1) % Lymph % (Auto) 29.0 (18.3-44.2) % [place] % (Auto) 5.8 (2.6-8.5) % Eos % (Auto) 1.5 (0-4.4) % Baso % (Auto) 0.4 (0.2-1.2) % Lymph # (Auto) 4.55 H (0.9-3.2) K/mm3 [place] # (Auto) 0.9 H (0.1-0.6) K/mm3 Eos # (Auto) 0.2 (0-0.3) K/mm3 Baso # (Auto) 0.1 (0.0-0.1) K/mm3 Abs Immat Gran (auto) 0.05 H (0.00-0.031) K/mm3 Absolute Neuts (auto) 9.9 H (1.3-6.7) K/mm3 Absolute Nucleated RBC 0.000 (0.0-0.012) K/mm3 Nucleated RBC % 0.0 (0.0-0.2) % PT 12.7 (11.1-14.7) Seconds INR 0.9 APTT 26.0 (22.3-36.8) Seconds Sodium 136 L (137-145) mmol/L Potassium 4.2 (3.4-5.0) mmol/L Chloride 102 (98-107) mmol/L Carbon Dioxide 24 (22-30) mmol/L Anion Gap 10 (4-12) mmol/L BUN 21 H (7-17) mg/dL Creatinine 0.54 L (0.7-1.0) mg/dL Estim Creat Clear Calc 158 ml/min Estimated GFR > 60 (59 - ) Glucose 135 H (65-110) mg/dL POC Capillary Glucose 130 H (65-105) mg/dl Lactic Acid 1.8 (0.7-2.0) mmol/L Calcium 9.2 (8.4-10.2) mg/dL Total Bilirubin 0.3 (0.2-1.3) mg/dL AST 29 (14-36) U/L ALT 26 (6-35) U/L Alkaline Phosphatase 81 (38-126) U/L C-Reactive Protein 1.7 H (<1.0) mg/dL Total Protein 7.7 (6.3-8.2) g/dL Albumin 4.3 (3.5-5.1) g/dL Urine Color Yellow (Yellow) Urine Appearance Clear (Clear) Urine pH 6.5 (5.0-9.0) Ur Specific [place] 1.013 (1.001-1.035) Urine Protein Negative (Negative) mg/dL Urine Glucose (UA) Negative (Negative) mg/dL Urine Ketones Negative (Negative) mg/dL Ur Blood (Man) 1+ H (Negative) Urine Nitrate Negative (Negative) Urine Bilirubin Negative (Negative) Urine Urobilinogen 0.2 (<2.0) mg/dL Leukocyte Esterase Rfl Negative (Negative) HARRISON/UL Urine RBC 11-20 H (0-2) /hpf Urine WBC 0-5 (0-3) /hpf Ur Squamous Epith Cells None seen (Few) /hpf Urine Bacteria None seen /hpf Urine Casts 0-2 Urine Test Negative <Caitie Izaguirre, MD - Last Filed: 08/21/25 18:08> Lab Results 08/21/25 08/21/25 08/21/25 Range/Units 18:42 18:43 19:39 WBC 15.7 H (4.5-10.0) K/mm3 RBC 4.71 (4.2-5.4) M/mm3 Hgb 11.8 L (12.0-15.0) g/dL Hct 38.8 (37.0-47.0) % MCV 82.4 (80-100) fl MCH 25.1 L (26-34) pg MCHC 30.4 L (32-36) g/dl RDW 16.1 H (11.5-14.5) % Plt Count 450 H (150-375) k/mm3 MPV 9.6 (7.4-10.4) fl Immature Gran % (Auto) 0.3 (0-0.5) % Neut % (Auto) 63.0 (45.5-73.1) % Lymph % (Auto) 29.0 (18.3-44.2) % [place] % (Auto) 5.8 (2.6-8.5) % Eos % (Auto) 1.5 (0-4.4) % Baso % (Auto) 0.4 (0.2-1.2) % Lymph # (Auto) 4.55 H (0.9-3.2) K/mm3 [place] # (Auto) 0.9 H (0.1-0.6) K/mm3 Eos # (Auto) 0.2 (0-0.3) K/mm3 Baso # (Auto) 0.1 (0.0-0.1) K/mm3 Abs Immat Gran (auto) 0.05 H (0.00-0.031) K/mm3 Absolute Neuts (auto) 9.9 H (1.3-6.7) K/mm3 Absolute Nucleated RBC 0.000 (0.0-0.012) K/mm3 Nucleated RBC % 0.0 (0.0-0.2) % PT 12.7 (11.1-14.7) Seconds INR 0.9 APTT 26.0 (22.3-36.8) Seconds Sodium 136 L (137-145) mmol/L Potassium 4.2 (3.4-5.0) mmol/L Chloride 102 (98-107) mmol/L Carbon Dioxide 24 (22-30) mmol/L Anion Gap 10 (4-12) mmol/L BUN 21 H (7-17) mg/dL Creatinine 0.54 L (0.7-1.0) mg/dL Estim Creat Clear Calc 158 ml/min Estimated GFR > 60 (59 - ) Glucose 135 H (65-110) mg/dL POC Capillary Glucose 130 H (65-105) mg/dl Lactic Acid 1.8 (0.7-2.0) mmol/L Calcium 9.2 (8.4-10.2) mg/dL Total Bilirubin 0.3 (0.2-1.3) mg/dL AST 29 (14-36) U/L ALT 26 (6-35) U/L Alkaline Phosphatase 81 (38-126) U/L C-Reactive Protein 1.7 H (<1.0) mg/dL Total Protein 7.7 (6.3-8.2) g/dL Albumin 4.3 (3.5-5.1) g/dL Urine Color Yellow (Yellow) Urine Appearance Clear (Clear) Urine pH 6.5 (5.0-9.0) Ur Specific [place] 1.013 (1.001-1.035) Urine Protein Negative (Negative) mg/dL Urine Glucose (UA) Negative (Negative) mg/dL Urine Ketones Negative (Negative) mg/dL Ur Blood (Man) 1+ H (Negative) Urine Nitrate Negative (Negative) Urine Bilirubin Negative (Negative) Urine Urobilinogen 0.2 (<2.0) mg/dL Leukocyte Esterase Rfl Negative (Negative) HARRISON/UL Urine RBC 11-20 H (0-2) /hpf Urine WBC 0-5 (0-3) /hpf Ur Squamous Epith Cells None seen (Few) /hpf Urine Bacteria None seen /hpf Urine Casts 0-2 Urine Test Negative <Sameer Hickey MD - Last Filed: 08/21/25 21:36> Discharge Plan Discharge Clinical Impression: Wound infection <Caitie Izaguirre MD - Last Filed: 08/21/25 18:08> Patient Disposition: Still a Patient <Caitie Izaguirre MD - Last Filed: 08/21/25 18:08> Condition: Stable <Caitie Izaguirre MD - Last Filed: 08/21/25 18:08> Patient Language: Telugu <Caitie Izaguirre MD - Last Filed: 08/21/25 18:08> Follow-up/Referrals: UNKNOWN,DOCTOR [Primary Care Provider] <Caitie Izaguirre MD - Last Filed: 08/21/25 18:08>
--- NOTE | 2025-08-21 18:50 | PC.NURSE ---
Pt. requesting pain medication for her 05/[address] Izaguirre notified.
[2025-08-21 18:54] LABS: Hematocrit 38.8 % (37.0-47.0); Hemoglobin 11.8 g/dL (12.0-15.0); Immature Granulocyte Percent A 0.3 % (0-0.5); Lymphocytes Absolute Auto 4.55 K/mm3 (0.9-3.2); Mean Corpuscular HGB Conc 30.4 g/dl (32-36); Mean Corpuscular Hemoglobin 25.1 pg (26-34); Mean Corpuscular Volume 82.4 fl (80-100); Nucleated Red Blood Cells Absolute Auto 0.000 K/mm3 (0.0-0.012); Nucleated Red Blood Cells Perc 0.0 % (0.0-0.2); Platelet Count Result 450 k/mm3 (150-375); Red Blood Count 4.71 M/mm3 (4.2-5.4); White Blood Count 15.7 K/mm3 (4.5-10.0)
[2025-08-21 18:56] LABS: Add Urine Microscopic? YES; Appearance Urine Clear (Clear); Glucose Urine UA Negative (Negative); Leukocyte Esterase Ur Negative LEU/UL (Negative); Nitrate Urine Negative (Negative); Non Pathogenic Casts 0-2; Specific Grav Ur 1.013 (1.001-1.035)
[2025-08-21] MEDS: oxyCODONE/ACETAMINOPHEN (*CRX) 5-325 MG TABLET 1 TABLET PO (18:56)
[2025-08-21 19:04] LABS: INR 0.9; Prothrombin Time 12.7 Seconds (11.1-14.7)
[2025-08-21 19:05] LABS: Partial Thromboplastin Time 26.0 Seconds (22.3-36.8)
[2025-08-21 19:14] LABS: Alanine Aminotransferase 26 U/L (6-35); Albumin Level 4.3 g/dL (3.5-5.1); Alkaline Phosphatase 81 U/L (38-126); Anion Gap 10 mmol/L (4-12); Aspartate Amino Transferase 29 U/L (14-36); Bilirubin,Total 0.3 mg/dL (0.2-1.3); Blood Urea Nitrogen 21 mg/dL (7-17); CRP 1.7 mg/dL (<1.0); Calcium 9.2 mg/dL (8.4-10.2); Carbon Dioxide 24 mmol/L (22-30); Chloride 102 mmol/L (98-107); Estimated CRCL calculation 158 ml/min; Estimated Glomerular Filt Rate > 60; Glucose 135 mg/dL (65-110); Potassium 4.2 mmol/L (3.4-5.0); Sodium 136 mmol/L (137-145); Total Protein 7.7 g/dL (6.3-8.2)
--- NOTE | 2025-08-21 19:20 | PC.NURSE ---
lab called to add on urine test. CT aware.
--- OUTSIDE RECORDS SUMMARY | 2025-08-21 19:31 | XMS_ITS | Encounter Summary ---
Author Organization [facility] Address [address] [place] [address] Care Team Providers Care Threader Operator Name Role Phone Qi Gabriel MD Primary Care Pr ovidRosie Quick DO Primary Care Provider [phone] Encounter Details Date Type Department Care Team (Late st Contact Info) Description 01/11/2023 Mediaflyt Message Enc [facility] Medical Group Multispecialty Care - [address] [place] [address] Qi [facility] Social History Tobacco Use Types Packs/Day Years Used Date Smoking Tobacco: Never Smokeless Tobacco: Never Comments No Sex and Gender Information Value Date Recorded Sex Assigned at Female 05/21/2025 1:18 PM CDT Legal Sex Female 8:24 AM CHEMICAL ETCH OPERATOR Gender Identity Female 05/21/2025 1:18 PM [...] st Contact Info) Description 08/30/2025 11:00 AM CHEMICAL ETCH OPERATOR Office Visit [facility], [address] [address] Matthew Agustin MD 3 [place] [address] 12/26/2025 10:20 AM CDT Office Visit [facility] Medical Group Pulmonology Specialty Clinic - [address] [place] [address] Sebastien Naik MD [address] [address] documented as of this encounter Visit Diagnoses Not on filedocumented in this encounter Care Teams Threader Operator Relationship Specialty Start Date End Date Qi Gabriel MD PCP - General FAMILY PRACTICE 01/11/23 03/21/23 Rosie Aguilera DO [address] [place] [address] PCP - General FAMILY PRACTICE 05/21/25 documented as of this encounter
--- OUTSIDE RECORDS SUMMARY | 2025-08-21 19:31 | XMS_ITS | Encounter Summary ---
Author Organization [facility] Address [address] [place] [address] Care Team Providers Care Principal Systems Engineer Name Role Phone Rosie Aguilera DO Primary Care Provider Encounter Details Date Type Department Care Team (Late st Contact Info) Description 05/21/2023 MyChart Message Enc [facility] Medical Group Multispecialty Care - [place] [address] [place] [address] [address] [place] [address] Sarthak Munguia MD [address] [place] [address] [address] [place] [address] Ileana Social History Tobacco Use Types Packs/Day Years Used Date Smoking Tobacco: Never Smokeless Tobacco: Never Comments:Counseled by Dr Charisse vu. 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 AM RESOLUTION MANAGER Gender Identity Female 05/21/2025 1:18 PM CDT Sexual Orientation Not on file documented as of this encounter Functional Status * Over the past 2 weeks, how often have you been bothered by any of the following problems? Question Answer Date of Assessment Author Status Little interest or pleasure in doing things Several days 05/21/2023 1:09 PM CDT Pennie Giordano, Nurse Assistant To The Ceo I Active Feeling down, depressed, or hopeless Several days 05/21/2023 1:09 PM SHUKRIT Chiara Giordano, Nurse Assistant To The Ceo I Active Patient Health Questionnaire-2 Score 2 [...] Not at all 05/21/2023 1:09 PM SHUKRIT Pnenie Giordano, Nurse Annie I Active Moving or [...] 05/21/2023 1:09 PM CDT Pennie Giordano, Nurse Assistant To The Ceo I Active * Over the last 2 weeks, how often have you been bothered by any of the following problems? Question Answer Date of Assessment Author Status Feeling nervous, anxious, or on edge 1 05/21/2023 1:10 PM CDT Pennie Giordano, Nurse Assistant To The Ceo I Active Not being able to stop or control worrying 0 05/21/2023 1:10 PM CDT Pennie Giordano, Nurse Assistant To The Ceo I Active Worrying too much about different things 0 05/21/2023 1:10 PM CDT Pennie Giordano, Nurse Assistant To The Ceo I Active Trouble relaxing 1 05/21/2023 1:10 PM CDT Pennie Rosario, Nurse Assistant To The Ceo I Active Being so restless that it is hard to sit still 0 05/21/2023 1:10 PM CDT Latoya Giordano i, Nurse Assistant To The Ceo I Active Becoming easily annoyed or irritable 3 05/21/2023 1:10 PM CDT Pennie Giordano, Nurse Assistant To The Ceo I Active Feeling afraid as if something awful might happen 0 05/21/2023 1:10 PM CDT Pennie Giordano, Nurse Assistant To The Ceo I Active SYD-7 Total Score 5 05/21/2023 1:10 PM CDT Pennie Giordano, Nurse Assistant To The Ceo I Active * Forest Suicide Severity Rating Scale (Screener/Recent Self-Report) Question [...] st Contact Info) Description 08/30/2025 11:00 AM RESOLUTION MANAGER Office Visit [facility], [address] [address] Matthew Agustin MD 3 [place] [address] 12/26/2025 10:20 AM CDT Office Visit [facility] - [address] [place] [address] Sebastien aNik MD [address] [address] documented as of this encounter Visit Diagnoses Not on filedocumented in this encounter Additional Health Concerns Assessment Noted Time PHQ-9 Depression Total Score: 8 05/21/20 23 1:09 PM CDT documented as of this encounter Care Teams Principal Systems Engineer Relationship Specialty Start Date End Date Rosie Aguilera DO [address] [place] [address] PCP - General FAMILY PRACTICE 05/21/25 documented as of this encounter
--- OUTSIDE RECORDS SUMMARY | 2025-08-21 19:31 | XMS_ITS | Encounter Summary ---
Author Organization [facility] Address [address] [place] [address] Care Team Providers Care Drain Tiler Name Role Phone Qi Gabriel MD Primary Care Pr ovidRosie Quick DO Primary Care Provider [phone] Encounter Details Date Type Department Care Team (Late st Contact Info) Description 01/21/2023 EMOSpeecht Message Enc [facility] Medical Group Multispecialty Care - [address] [place] [address] Qi Gabriel MD Update on my prescriptions & health Social History Tobacco Use Types Packs/Day Years Used Date Smoking Tobacco: Never Smokeless Tobacco: Never Comments No Sex and Gender Information Value Date Recorded Sex Assigned at Female 05/21/2025 1:18 PM CDT Legal Sex Female 8:24 AM GROOMING ASSISTANT Gender Identity Female 05/21/2025 1:18 PM [...] st Contact Info) Description 08/30/2025 11:00 AM GROOMING ASSISTANT Office Visit [facility] [facility], [address] [address] Matthew Agustin MD 3 [place] [address] 12/26/2025 10:20 AM CDT Office Visit [facility] Medical [facility]ty Clinic - [address] [place] [address] Sebastien Naik MD [address] [address] documented as of this encounter Visit Diagnoses Not on filedocumented in this encounter Care Teams Drain Tiler Relationship Specialty Start Date End Date Qi Gabriel MD PCP - General FAMILY PRACTICE 01/11/23 03/21/23 Rosie Aguilera DO [address] [place] [address] PCP - General FAMILY PRACTICE 05/21/25 documented as of this encounter
--- OUTSIDE RECORDS SUMMARY | 2025-08-21 19:31 | XMS_ITS | Encounter Summary ---
Author Organization [facility] Address [address] [place] [address] Care Team Providers Care Animal Control Supervisor Name Role Phone Qi Gabriel MD Primary Care Pr ovidRosie Quick DO Primary Care Provider [phone] Encounter Details Date Type Department Care Team (Late st Contact Info) Description 01/15/2023 Kiva System[employer] Message Enc [facility] Medical Group Multispecialty Care - [address] [place] [address] Qi Gabriel MD [employer] Social History Tobacco Use Types Packs/Day Years Used Date Smoking Tobacco: Never Smokeless Tobacco: Never Comments No Sex and Gender Information Value Date Recorded Sex Assigned at Female 05/21/2025 1:18 PM CDT Legal Sex Female 8:24 AM BANK OFFICER Gender Identity Female 05/21/2025 1:18 PM CDT [...] st Contact Info) Description 08/30/2025 11:00 AM BANK OFFICER Office Visit [facility] THREE [facility] [place] [address] [place] [address] Matthew Agustin MD 3 [place] [address] 12/26/2025 10:20 AM CDT Office Visit [facility] Medical Group Pul[facility] Specialty Clinic - [address] [place] [address] Sebastien Naik MD 3 [facility] [place] [facility] [place] [address] documented as of this encounter Visit Diagnoses Not on filedocumented in this encounter Care Teams Animal Control Supervisor Relationship Specialty Start Date End Date Qi Gabriel MD PCP - General FAMILY PRACTICE 01/11/23 03/21/23 Rosie Aguilera DO [facility] [place] [address] PCP - General FAMILY PRACTICE 05/21/25 documented as of this encounter
--- OUTSIDE RECORDS SUMMARY | 2025-08-21 19:31 | XMS_ITS | Encounter Summary ---
Author Organization [facility] Address [facility] [place] [address] Care Team Providers Care Headwaitress Name Role Phone WillyRosie carranza Maylin CARCAMO Primary Care Provider [phone] Encounter Details Date Type Department Care Team (Late st Contact Info) Description 11/04/2023 MyChart Message Enc [facility] Medical Group Multispecialty Care - [place] [address] [address] [place] [address] [place] [address] [place] [address] 157 [place] [address] Humalog Social History Tobacco Use Types Packs/Day Years Used Date Smoking Tobacco: Never Smokeless Tobacco: Never Comments:Counseled by Dr Charisse vu. 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 AM POWER ELECTRONICS ENGINEER Gender Identity Female 05/21/2025 1:18 PM CDT Sexual Orientation Not on file documented as of this encounter Plan of Treatment Upcoming Encounters Date Type Department Care Team (Late st Contact Info) Description 08/30/2025 11:00 AM POWER ELECTRONICS ENGINEER Office Visit [facility] [facility], [address] [address] Matthew Agustin MD 3 [place] [address] 12/26/2025 10:20 AM CDT Office Visit [facility] Medical Group Pul[facility] Specialty Clinic - [address] [place] [address] Sebastien Naik MD [address] [place] [address] documented as of this encounter Visit Diagnoses Not on filedocumented in this encounter Additional Health Concerns Assessment Noted Time PHQ-9 Depression Total Score: 8 05/21/20 23 1:09 PM CDT documented as of this encounter Care Teams Headwaitress Relationship Specialty Start Date End Date Rosie Aguilera DO [address] [place] [address] PCP - General FAMILY PRACTICE 05/21/25 documented as of this encounter
--- OUTSIDE RECORDS SUMMARY | 2025-08-21 19:31 | XMS_ITS | Encounter Summary ---
Author Organization [facility] Address [facility] [place] [address] Care Team Providers Care Continuous Mining Machine Company Miner Name Role Phone Qi Gabriel MD Primary Care Pr ovidRosie Quick DO Primary Care Provider [phone] Encounter Details Date Type Department Care Team (Late Contact Info) Description 01/19/2023 [employer] Message Enc [facility] Medical Group Multispecialty Care [address] [place] [address] [employer], [facility] Provider medication Social History Tobacco Use Types Packs/Day Years Used Date Smoking Tobacco: Never Smokeless Tobacco: Never Comments No Sex and Gender Information Value Date Recorded Sex Assigned at Female 05/21/2025 1:18 PM CDT Legal Sex Female 8:24 AM WOOD HEEL FLAP INSERTER Gender Identity Female 05/21/2025 1:18 PM CDT [...] (Late Contact Info) Description 08/30/2025 11:00 AM WOOD HEEL FLAP INSERTER Office Visit [facility] THREE [facility] [address] [place] [address] Matthew Agustin MD 3 [place] [address] 12/26/2025 10:20 AM CDT Office Visit [facility] Medical Group Pulmonology Specialty Clinic - [address] [place] [address] Sebastien Naik MD 3 [facility] [address] [place] [address] documented as of this encounter Visit Diagnoses Not on filedocumented in this encounter Care Teams Continuous Mining Machine Company Miner Relationship Specialty Start Date End Date Qi Gabriel MD PCP - General FAMILY PRACTICE 01/11/23 03/21/23 Rosie Aguilera DO [address] [place] [address] PCP - General FAMILY PRACTICE 05/21/25 documented as of this encounter
--- OUTSIDE RECORDS SUMMARY | 2025-08-21 19:31 | XMS_ITS | Encounter Summary ---
Author Organization [facility] Address [facility] [place] [address] Care Team Providers Care Cashier Supervisor Name Role Phone WillyRosie carranza Maylin CARCAMO Primary Care Provider [phone] Encounter Details Date Type Department Care Team (Latest Contact Info) Description 11/17/[address] [facility] Medical Group Multispecialty Care - [place] [address] [address] [place] [address] [place] [address] [place] [address] 157 [place] [address] Pre-Authorization Needed for Farxiga 5mg Social History Tobacco Use Types Packs/Day Years Used Date Smoking Tobacco: Never Smokeless Tobacco: Never Comments:Counseled by Dr Charisse vu. 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 AM PAPER AND PULP MILL OPERATOR Gender Identity Female 05/21/2025 1:18 PM CDT Sexual Orientation Not on file documented as of this encounter Plan of Treatment Upcoming Encounters Date Type Department Care Team (Late st Contact Info) Description 08/30/2025 11:00 AM PAPER AND PULP MILL OPERATOR Office Visit [facility], [address] [address] Matthew Agustin MD 3 [place] [address] 12/26/2025 10:20 AM CDT Office Visit [facility] Medical [facility] Pul[facility]ology Specialty Clinic - [address] [place] [address] Sebastien Naik MD 3 [facility] [address] [place] [address] documented as of this encounter Visit Diagnoses Not on filedocumented in this encounter Additional Health Concerns Assessment Noted Time PHQ-9 Depression Total Score: 8 05/21/20 23 1:09 PM CDT documented as of this encounter Care Teams Cashier Supervisor Relationship Specialty Start Date End Date Rosie Aguilera DO [address] [place] [place] [address] PCP - General FAMILY PRACTICE 05/21/25 documented as of this encounter
--- OUTSIDE RECORDS SUMMARY | 2025-08-21 19:31 | XMS_ITS | Encounter Summary ---
Author Organization [facility] Address [facility]6 [place] [address] Care Team Providers Care [facility] Pricing Consultant Name Role Phone Rosie Aguilera Maylin CARCAMO Primary Care Provider [phone] Encounter Details Date Type Department Care Team (Late st Contact Info) Description 05/24/2023 MyChart Message Enc [facility] Medical Group Multispecialty Care - [place] [address] [address] [place] [address] [place] [address] [place] [address] 157 [place] [address] Ileana Social History Tobacco Use Types Packs/Day Years Used Date Smoking Tobacco: Never Smokeless Tobacco: Never Comments:Counseled by Dr Charisse vu. 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 AM TRANSMITTER SUPERVISOR Gender Identity Female 05/21/2025 1:18 PM CDT Sexual Orientation Not on file documented as of this encounter Plan of Treatment Upcoming Encounters Date Type Department Care Team (Late st Contact Info) Description 08/30/2025 11:00 AM TRANSMITTER SUPERVISOR Office Visit [facility] THREE [facility], [place] [address] [place] [address] Matthew Agustin MD 3 [place] [address] 12/26/2025 10:20 AM CDT Office Visit [facility] Medical Group Pulmonology Specialty Clinic - [address] [place] [address] Sebastien Naik MD [address] [place] [address] documented as of this encounter Visit Diagnoses Not on filedocumented in this encounter Additional Health Concerns Assessment Noted Time PHQ-9 Depression Total Score: 8 05/21/20 23 1:09 PM CDT documented as of this encounter Care Teams Healthcare Network Pricing Consultant Relationship Specialty Start Date End Date Rosie Aguilera DO [address] [place] [address] PCP - General FAMILY PRACTICE 05/21/25 documented as of this encounter
--- OUTSIDE RECORDS SUMMARY | 2025-08-21 19:31 | XMS_ITS | Encounter Summary ---
Author Organization [facility] Address [facility]6 [place] [address] Care Team Providers Care Warp Dyeing Vat Tender Name Role Phone WillyRosie carranza Maylin CARCAMO Primary Care Provider [phone] Encounter Details Date Type Department Care Team (Late st Contact Info) Description 06/10/2023 MyChart Message Enc [facility] Medical Group Multispecialty Care - [place] [address] [address] [place] [address] [place] [address] [place] [address] 157 [place] [address] Blood Work Social History Tobacco Use Types Packs/Day Years Used Date Smoking Tobacco: Never Smokeless Tobacco: Never Comments:Counseled by Dr Charisse vu. 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 AM TETRYL BOILING TUB OPERATOR Gender Identity Female 05/21/2025 1:18 PM CDT Sexual Orientation Not on file documented as of this encounter Plan of Treatment Upcoming Encounters Date Type Department Care Team (Late st Contact Info) Description 08/30/2025 11:00 AM TETRYL BOILING TUB OPERATOR Office Visit [facility] [facility], [address] [address] Matthew Agustin MD 3 [place], [place] [id number] 12/26/2025 10:20 AM CDT Office Visit [facility] Medical Group Pulmonology Specialty Clinic - [address] [place] [address] Sebastien Naik MD [address] [place] [address] documented as of this encounter Visit Diagnoses Not on filedocumented in this encounter Additional Health Concerns Assessment Noted Time PHQ-9 Depression Total Score: 8 05/21/20 23 1:09 PM CDT documented as of this encounter Care Teams Warp Dyeing Vat Tender Relationship Specialty Start Date End Date Rosie Aguilera DO [address] [place] [address] PCP - General FAMILY PRACTICE 05/21/25 documented as of this encounter
--- OUTSIDE RECORDS SUMMARY | 2025-08-21 19:31 | XMS_ITS | Encounter Summary ---
Author Organization [facility] Address [address] [place] [address] Care Team Providers Care Occupational Therapy Asst Name Role Phone Qi Gabriel MD Primary Care Pr ovidRosie Quick DO Primary Care Provider [phone] Encounter Details Date Type Department Care Team (Late Contact Info) Description 01/15/2023 [employer] Message Enc [facility] Medical Group Multispecialty Care [address] [place] [address] [employer], [facility] Provider Lab Results Social History Tobacco Use Types Packs/Day Years Used Date Smoking Tobacco: Never Smokeless Tobacco: Never Comments No Sex and Gender Information Value Date Recorded Sex Assigned at Female 05/21/2025 1:18 PM CDT Legal Sex Female 8:24 AM PARK POLICE Gender Identity Female 05/21/2025 1:18 PM CDT [...] (Late Contact Info) Description 08/30/2025 11:00 AM PARK POLICE Office Visit [facility] THREE [facility] [address] [place] [address] Matthew Agustin MD 3 [place] [address] 12/26/2025 10:20 AM CDT Office Visit [facility] Medical Group Pulmonology Specialty Clinic - [address] [place] [address] Sebastien Naik MD 3 [facility] [place] [address] [place] [address] documented as of this encounter Visit Diagnoses Not on filedocumented in this encounter Care Teams Occupational Therapy Asst Relationship Specialty Start Date End Date Qi Gabriel MD PCP - General FAMILY PRACTICE 01/11/23 03/21/23 Rosie Aguilera DO [address] [place] [address] PCP - General FAMILY PRACTICE 05/21/25 documented as of this encounter
--- OUTSIDE RECORDS SUMMARY | 2025-08-21 19:31 | XMS_ITS | Encounter Summary ---
Author Organization [facility] Address [facility]6 [place] [address] Care Team Providers Care Audio Production Engineer Name Role Phone WillyRosie carranza Maylin CARCAMO Primary Care Provider [phone] Encounter Details Date Type Department Care Team (Latest Contact Info) Description 05/26/2023 MyChart Message Enc [facility] Medical Group Multispecialty Care - [address] [place] [address] Ana Stanton NP Prior authorization for [employer] Social History Tobacco Use Types Packs/Day Years Used Date Smoking Tobacco: Never Smokeless Tobacco: Never Comments:Counseled by Dr Charisse vu. 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 AM GLOVE OPERATOR Gender Identity Female 05/21/2025 1:18 PM CDT Sexual Orientation Not on file documented as of this encounter Plan of Treatment Upcoming Encounters Date Type Department Care Team (Late st Contact Info) Description 08/30/2025 11:00 AM GLOVE OPERATOR Office Visit [facility] [facility], [address] [address] Matthew Agustin MD 3 [place], [place] [address] 12/26/2025 10:20 AM CDT Office Visit [facility] Medical Group Pulmonology Specialty Clinic - [address] [place] [address] Sebastien Naik MD [address] [place] [address] documented as of this encounter Visit Diagnoses Not on filedocumented in this encounter Additional Health Concerns Assessment Noted Time PHQ-9 Depression Total Score: 8 05/21/20 23 1:09 PM CDT documented as of this encounter Care Teams Audio Production Engineer Relationship Specialty Start Date End Date Rosie Aguilera DO [address] [place] [id number] PCP - General FAMILY PRACTICE 05/21/25 documented as of this encounter
--- OUTSIDE RECORDS SUMMARY | 2025-08-21 19:31 | XMS_ITS | Clinical Summary ---
Author Organization [facility] Address [address] [place] [address] Phone Care Team Providers Care Thread Machine Operator Name Role Phone Unavailable Primary Care Provider [...] 1 Active fluticasone propionate (FLONASE) 50 mcg/spray [place], Suspension nasal inhaler Administer 2 Sprays in each nostril see administration instructions. 9 Active Insulin Pump Cartridge (Omnipod Dash 5 Pack Pod) Cartridge Inject 1 Packet by intramuscular injection see administration instructions. 0 Active flash glucose sensor (FreeStyle Ly 14 Day Sensor) Kit Inject 1 Device by intramuscular injection see administration instructions. 0 Active flash glucose scanning reader (FreeStyle Ly 14 Day [place]) Misc Take 1 Tablet by mouth see administration instructions. 0 Active Norgestimate-E thinyl estradiol (Elp-Aq-Xhxwro ec) 0.18/0.215/0.2 5 mg-25 mcg tablet Take [...] on file Legal Sex Female 3:26 AM REVERBERATORY SKIMMER Gender Identity Not on file Sexual Orientation [...] STI screening follows ACOG guidelines(PB 168, 140, XAJ211). See individual assays for performing site location. [...] lesion or malignancy. 02/03/2021 3:39 PM CDT [facility] COMMENT This Pap test has been evaluated with computer assisted technology. 02/03/2021 3:39 PM CDT [facility] INVENTORY PLANNER: SEE COMMENT 2020 3:39 PM CDT [facility] Comment: MDG, CT(ASCP) CT screening location: [place] [address] [address] BRIGIDO [facility] REVIEW INVENTORY PLANNER: SEE COMMENT 02/03/2021 3:39 PM CDT [facility] Comment: BEF, CT(ASCP) CT screening location: [place] [address] [address] BRIGIDO Manning [facility] EXPLANATORY NOTE SEE COMMENT 3:39 PM [...] CDT [facility] Comment: Methodology: Engineer Sergeant-Mediated Amplification This assay detects E6/E7 viral messenger RNA (mRNA) from 14 high-risk HPV types (16,18,31,33,35,39,45,51,52,56,58,59,66,68). The analytical performance characteristics of this assay have been determined by [facility]. The modifications have not been cleared or approved by the FDA. This assay has been validated pursuant to the CLIA regulations and is used for clinical purposes. For additional information, please refer to http://education.Valmarc.BMdr/faq/BVD569y4 (This link if provided for information/ educational purposes only.) Genital SWAB OF ENDOCERVIX / Unknown Collection / Unknown 01/28/2021 3:14 PM CDT 01/28/2021 7:10 PM CDT Narrative [facility] - 02/03/2021 3:39 PM CDT Performing Organization Information: Site ID: [id number] Name: [facility] Address: [address] [address] Director: Manfred Mack D.O., MPH Site ID: [place] Name: [facility] Address: [address] [place] [address] Director: Cece Ross us Jerman Berg MD PATHOLOGY/CYTOLOGY ORDERABLES Fi nal Result [facility] [phone] * MAMMO SCREEN BILAT W OR WO [...] Assessment: Birads Category 1: Negative External Provider [facility] MAMMO ORDERABLES Final R esult from Last 3 Months or Most Recently Relevant to Health Maintenance Insurance BC EXCHANGE
--- OUTSIDE RECORDS SUMMARY | 2025-08-21 19:31 | XMS_ITS | Encounter Summary ---
Author Organization [facility] Address [address] [place] [address] Care Team Providers Care Automotive Service Advisor Name Role Phone Qi Gabriel MD Primary Care Pr ovidRosie Quick DO Primary Care Provider [phone] Encounter Details Date Type Department Care Team (Late st Contact Info) Description 01/11/2023 InSpherot Message Enc [facility] Medical Group Multispecialty Care - [address] [place] [address] Qi Gabriel MD My Solar Thermal Installer's Number Social History Tobacco Use Types Packs/Day Years Used Date Smoking Tobacco: Never Smokeless Tobacco: Never Comments No Sex and Gender Information Value Date Recorded Sex Assigned at Female 05/21/2025 1:18 PM CDT Legal Sex Female 8:24 AM DIRECTOR OF TEACHING AND LEARNING Gender Identity Female 05/21/2025 1:18 PM CDT [...] st Contact Info) Description 08/30/2025 11:00 AM DIRECTOR OF TEACHING AND LEARNING Office Visit [facility] [facility], [address] [address] Matthew Agustin MD 3 [place] [address] 12/26/2025 10:20 AM CDT Office Visit [facility]ty [facility] - [address] [place] [address] Sebastien Naik MD [address] [address] documented as of this encounter Visit Diagnoses Not on filedocumented in this encounter Care Teams Automotive Service Advisor Relationship Specialty Start Date End Date Qi Gabriel MD PCP - General FAMILY PRACTICE 01/11/23 03/21/23 Rosie Aguilera DO [address] [place] [address] PCP - General FAMILY PRACTICE 05/21/25 documented as of this encounter
--- OUTSIDE RECORDS SUMMARY | 2025-08-21 19:31 | XMS_ITS | Encounter Summary ---
Author Organization [facility] Address [address] [place] [address] Care Team Providers Care Structural Steel Worker Helper Name Role Phone Qi Gabriel MD Primary Care Pr ovidRosie Quick DO Primary Care Provider [phone] Encounter Details Date Type Department Care Team (Late Contact Info) Description 01/13/2023 Touchtalentt Message Enc [facility] Medical Group Multispecialty Care [address] [place] [address] Qi Gabriel MD PRIOR AUTHORIZATION REQUIRED Social History Tobacco Use Types Packs/Day Years Used Date Smoking Tobacco: Never Smokeless Tobacco: Never Comments No Sex and Gender Information Value Date Recorded Sex Assigned at Female 05/21/2025 1:18 PM CDT Legal Sex Female 8:24 AM PSYCHOLOGY ASSISTANT Gender Identity Female 05/21/2025 1:18 PM [...] st Contact Info) Description 08/30/2025 11:00 AM PSYCHOLOGY ASSISTANT Office Visit [facility] THREE [facility], [place] [address] [place] [address] Matthew Agustin MD 3 [place] [address] 12/26/2025 10:20 AM CDT Office Visit [facility] Specialty Clinic - [address] [place] [address] Sebastien Naik MD 3 [facility] [place] [address] [place] [address] documented as of this encounter Visit Diagnoses Not on filedocumented in this encounter Care Teams Structural Steel Worker Helper Relationship Specialty Start Date End Date Qi Gabriel MD PCP - General FAMILY PRACTICE 01/11/23 03/21/23 Rosie Aguilera DO [address] [place] [address] PCP - General FAMILY PRACTICE 05/21/25 documented as of this encounter
--- OUTSIDE RECORDS SUMMARY | 2025-08-21 19:31 | XMS_ITS | Encounter Summary ---
Author Organization [facility] Address [facility] [place] [address] Care Team Providers Care Pig Iron Loader Name Role Phone WillyRosie carranza Maylin CARCAMO Primary Care Provider [phone] Encounter Details Date Type Department Care Team (Latest Contact Info) Description 02/29/2024 MyChart Message Enc [facility] Medical Group Multispecialty Care - [place] [address] [address] [place] [address] [place] [address] [place] [address] [address] [place] [address] Need Antibiotics for a skin Abcess Social History Tobacco Use Types Packs/Day Years Used Date Smoking Tobacco: Never Smokeless Tobacco: Never Comments:Counseled by Dr Charisse vu. 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 AM ELEVATOR INSTALLER APPRENTICE Gender Identity Female 05/21/2025 1:18 PM CDT Sexual Orientation Not on file documented as of this encounter Plan of Treatment Upcoming Encounters Date Type Department Care Team (Late st Contact Info) Description 08/30/2025 11:00 AM ELEVATOR INSTALLER APPRENTICE Office Visit [facility] THREE [facility] [address] [place] [address] Matthew Agustin MD 3 [place] [address] 12/26/2025 10:20 AM CDT Office Visit [facility] Medical [facility] Pul[facility]ology Specialty Clinic - [address] [place] [address] Sebastien Naik MD [address] [place] [address] documented as of this encounter Visit Diagnoses Not on filedocumented in this encounter Additional Health Concerns Assessment Noted Time PHQ-9 Depression Total Score: 8 05/21/20 23 1:09 PM CDT documented as of this encounter Care Teams Pig Iron Loader Relationship Specialty Start Date End Date Rosie Aguilera DO [address] [place] [address] PCP - General FAMILY PRACTICE 05/21/25 documented as of this encounter
--- OUTSIDE RECORDS SUMMARY | 2025-08-21 19:31 | XMS_ITS | Encounter Summary ---
Author Organization [facility] Address [facility] [place] [address] Care Team Providers Care Heel Shaper Name Role Phone WillyRosie Maylin CARCAMO Primary Care Provider [phone] Encounter Details Date Type Department Care Team (Latest Contact Info) Description 07/26/2023 MyChart Message Enc [facility] Medical Group Multispecialty Care - [place] [address] [address] [place] [address] [place] [address] [place] [address] [address] [place] [address] UPDATED MEDICATION LIST Social History Tobacco Use Types Packs/Day Years Used Date Smoking Tobacco: Never Smokeless Tobacco: Never Comments:Counseled by Dr Charisse vu. 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 AM TRANSISTOR TESTER Gender Identity Female 05/21/2025 1:18 PM CDT Sexual Orientation Not on file documented as of this encounter Plan of Treatment Upcoming Encounters Date Type Department Care Team (Late st Contact Info) Description 08/30/2025 11:00 AM TRANSISTOR TESTER Office Visit [facility] [facility], [place] [address] [place] [address] Matthew Agustin MD 3 [place], [place] [id number] 12/26/2025 10:20 AM CDT Office Visit [facility] Medical Group Pulmonology Specialty Clinic - [address] [place] [address] Sebastien Naik MD [address] [place] [address] documented as of this encounter Visit Diagnoses Not on filedocumented in this encounter Additional Health Concerns Assessment Noted Time PHQ-9 Depression Total Score: 8 05/21/20 23 1:09 PM CDT documented as of this encounter Care Teams Heel Shaper Relationship Specialty Start Date End Date Rosie Aguilera DO [address] [place] [address] PCP - General FAMILY PRACTICE 05/21/25 documented as of this encounter
--- OUTSIDE RECORDS SUMMARY | 2025-08-21 19:31 | XMS_ITS | Encounter Summary ---
Author Organization [facility] Address [address] [place] [address] Care Team Providers Care Finishing Trimmer Name Role Phone Qi Gabriel MD Primary Care Pr ovidRosie Quick DO Primary Care Provider [phone] Encounter Details Date Type Department Care Team (Late st Contact Info) Description 01/18/[address] [facility] Medical Group Multispecialty Care - [address] [place] [address] Qi Gabriel MD My Blood Sugar Readings 01-11-23/01-17-23 Social History Tobacco Use Types Packs/Day Years Used Date Smoking Tobacco: Never Smokeless Tobacco: Never Comments No Sex and Gender Information Value Date Recorded Sex Assigned at Female 05/21/2025 1:18 PM CDT Legal Sex Female 8:24 AM FAMILY PROTECTION SPECIALIST Gender Identity Female 05/21/2025 1:18 PM [...] st Contact Info) Description 08/30/2025 11:00 AM FAMILY PROTECTION SPECIALIST Office Visit [facility] THREE [facility], [address] [address] Matthew Agustin MD 3 [place] [address] 12/26/2025 10:20 AM CDT Office Visit [facility] Pul[facility]ology Specialty Clinic - [address] [place] [address] Sebastien Naik MD [address] [address] documented as of this encounter Visit Diagnoses Not on filedocumented in this encounter Care Teams Finishing Trimmer Relationship Specialty Start Date End Date Qi Gabriel MD PCP - General FAMILY PRACTICE 01/11/23 03/21/23 Rosie Aguilera DO [address] [place] [address] PCP - General FAMILY PRACTICE 05/21/25 documented as of this encounter
--- OUTSIDE RECORDS SUMMARY | 2025-08-21 19:31 | XMS_ITS | Encounter Summary ---
Author Organization [facility] Address [facility] [place] [address] Care Team Providers Care Real Estate Teacher Name Role Phone Qi Gabriel MD Primary Care Pr ovidRosie Quick DO Primary Care Provider [phone] Encounter Details Date Type Department Care Team (Late Contact Info) Description 01/19/2023 Benjamin's Desk Message Enc [facility] Medical Group Multispecialty Care [address] [place] [address] [facility], [facility] Provider medication Social History Tobacco Use Types Packs/Day Years Used Date Smoking Tobacco: Never Smokeless Tobacco: Never Comments No Sex and Gender Information Value Date Recorded Sex Assigned at Female 05/21/2025 1:18 PM CDT Legal Sex Female 8:24 AM WINDOW SHADE CUTTER AND MOUNTER Gender Identity Female 05/21/2025 1:18 PM CDT [...] (Late Contact Info) Description 08/30/2025 11:00 AM WINDOW SHADE CUTTER AND MOUNTER Office Visit [facility] THREE [facility] [address] [place] [address] Matthew Agustin MD 3 [place] [address] 12/26/2025 10:20 AM CDT Office Visit [facility] Medical [facility] Pulmonology Specialty Clinic - [address] [place] [address] Sebastien Naik MD 3 [facility] [address] [place] [address] documented as of this encounter Visit Diagnoses Not on filedocumented in this encounter Care Teams Real Estate Teacher Relationship Specialty Start Date End Date Qi Gabriel MD PCP - General FAMILY PRACTICE 01/11/23 03/21/23 Rosie Aguilera DO [address] [place] [address] PCP - General FAMILY PRACTICE 05/21/25 documented as of this encounter
--- OUTSIDE RECORDS SUMMARY | 2025-08-21 19:31 | XMS_ITS | Encounter Summary ---
Author Organization [facility] Address [facility] [place] [address] Care Team Providers Care Terminal Manager Name Role Phone WillyRosie carranza Maylin CARCAMO Primary Care Provider [phone] Encounter Details Date Type Department Care Team (Latest Contact Info) Description 05/26/2023 MyChart Message Enc [facility] Medical Group Multispecialty Care - [place] [address] [place] [address] [address] [place] [address] [place] [address] [place] [address] [address] [place] [address] your rybelsus is approved thanks. Social History Tobacco Use Types Packs/Day Years Used Date Smoking Tobacco: Never Smokeless Tobacco: Never Comments:Counseled by Dr Charisse vu. 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 AM SHANK TAPER Gender Identity Female 05/21/2025 1:18 PM CDT Sexual Orientation Not on file documented as of this encounter Plan of Treatment Upcoming Encounters Date Type Department Care Team (Late st Contact Info) Description 08/30/2025 11:00 AM SHANK TAPER Office Visit [facility] [facility] [address] [place] [address] Matthew Agustin MD 3 [place] [address] 12/26/2025 10:20 AM CDT Office Visit [facility] Medical Group Pulmonology Specialty Clinic - [address] [place] [address] Sebastien Naik MD 3 [facility] [place] [address] [place] [address] documented as of this encounter Visit Diagnoses Not on filedocumented in this encounter Additional Health Concerns Assessment Noted Time PHQ-9 Depression Total Score: 8 05/21/20 23 1:09 PM CDT documented as of this encounter Care Teams Terminal Manager Relationship Specialty Start Date End Date Rosie Aguilera DO [address] [place] [address] PCP - General FAMILY PRACTICE 05/21/25 documented as of this encounter
[2025-08-21] MEDS: VANCOMYCIN 1,250 MG/NS 250 ML 1,250 MG/250 ML BAG 166.67 MG IVPB ×2 (19:33→21:29)
--- OUTSIDE RECORDS SUMMARY | 2025-08-21 19:33 | XMS_ITS | Clinical Summary ---
Author Organization [facility] Address [facility] [place] [address] Care Team Providers Care Crm Dynamics Developer Name Role Phone Rosie Aguilera DO Primary Care Provider [phone] Allergies Active Allergy Reactions Criticality Noted Date Comments Seasonal Runny Nose 05/21/2025 Medications insulin glargine (LANTUS SOLOSTAR) 100 UNIT/ML injection (PEN)Indicati ons:Type 2 diabetes mellitus with hyperglycemia , with long-term current use of insulin ([facility]) Inject 28 Units into the skin nightly at bedtime. 15 mL 1 024 Active Additional Information Patient taking differently: 47 UnitsSubcutaneous Nightly at bedtime, 35 before poercwcwo25 at night, Reported on 08/06/2025 buPROPion XL [...] , with long-term current use of insulin ([facility] HHS/HCC) Inject 18 Units into the skin 3 (three) times daily. Plus sliding scale 48.6 mL 1 025 Active insulin lispro, 1 Unit Dial, (HUMALOG) 100 UNIT/ML injection (PEN)Indicati ons:Type 2 diabetes mellitus with hyperglycemia , with long-term current use of insulin ([facility]/HCC) Inject 6 Units into the skin 3 (three) times daily before meals. 9 mL 5 024 2024 Discontinued(D ose adjustment) pravastatin (PRAVACHOL) 40 MG tabletIndicat ions:Type 2 diabetes mellitus with hyperglycemia , with long-term current use of insulin ([facility]/HCC),Hype rlipidemia associated with type 2 diabetes mellitus ([facility]/HCC) TAKE 1 TABLET(40 MG) BY MOUTH EVERY NIGHT AT BEDTIME 90 tablet 1 024 2024 Discontinued(D ose adjustment) lisinopril-hy droCHLOROthia zide (ZESTORETIC) 20-25 MG tabletIndicat ions:Type 2 diabetes mellitus with hyperglycemia , with long-term current use of insulin ([facility]/HCC),Hype rtension associated with type 2 diabetes mellitus ([facility]/HCC) take 1 tablet by mouth daily 90 tablet 024 2024 Discontinued(D ose adjustment) empagliflozin (JARDIANCE) 10 MG tabletIndicat ions:Type 2 diabetes mellitus with hyperglycemia , with long-term current use of insulin ([facility]/HCC) Take 1 tablet (10 mg total) [...] Date Type Department Care Team Description 08/21/2025 Vitamin Research Productshart Message Enc [facility] Family Internal [address] [phone] Rosie Aguilera, DO Culture Results- MRSA 08/21/[address] [address] Rosie Aguilera, DO Lab Results 08/20/2025 Telephone [facility] Internal [address] [address] Rosie Aguilera, DO Medication Request 08/17/[address] [address] Rosie Aguilera, DO Information 08/07/2025 Telephone [facility] Internal [address] [phone] Rosie Aguilera, DO Prior Authorization (Ramelteon 8 mg tablets) 08/07/2025 SHAPE Message Enc [facility] Internal [address] [phone] Rosie Aguilera, DO Pain Meds for my Post Surgery Wound 08/06/2025 1:20 PM CDT Office Visit [facility] Internal [address] [phone] Rosie Aguilera, DO TCM (Pt is here for f[facility]u from [facility] on [facility]25 for cellulitis. Previous admitted to [facility] from [place] for Necrotizing Fasciitis, then placed at [facility] in [place]. Pt does have home health coming to her house now. /Pt was dx with new onset of Afib while at [facility] and has an appt with [facility] on 08/30/25/) 08/06/2025 Travel 08/03/2025 Scan [facility] INFO SRVCS Scanned, [facility] 08/01/2025 Telephone [facility], [address] [address] Malissa Alonso, RMA Consult 07/31/2025 Telephone [facility] Internal [address] [phone] Rosie Aguilera, DO Medication 07/26/2025 Orders Only [facility] Internal [address] [phone] Rosie Aguilera, 07/26/2025 MyChart Message Enc [facility] Internal [address] [phone] [facility] Provider cardiology 07/25/2025 Telephone [facility] Internal [address] [phone] Rosie Aguilera, Information 07/25/2025 MyChart Message Enc [facility] Family Internal [address] [phone] Rosie Aguilera, A Referral for a Pastry Mixer 07/16/2025 MyChart Message Enc [facility] Internal [address] [phone] Rosie Aguilera, Admitted to [facility] 07/10/2025 Telephone [facility] Internal [address] [phone] Rosie Aguilera, DO Information 07/05/2025 Telephone [facility] Family & Internal [facility] [address] [place] [phone] Rosie Aguilera, DO Medication Request 07/05/2025 Scan [employer] INFO SRVCS Scanned, [facility] 07/04/2025 MyChart Message Enc [facility] Internal [place] [address] [place] [address] Rosie Aguilera, DO My Blood Sugars 07/02/2025 Telephone [facility] Internal [address] [phone] Rosie Aguilera, DO Information 06/25/2025 MyChart Message Enc [facility] Internal [address] [phone] Rosie Aguilera, DO My hospital records 06/11/2025 MyChart Message Enc [facility] Pul[facility] Special[facility] - [place] [address] [place] [address] Sebastien Naik MD CPAP Machine 06/11/[address] [phone] Rosie Aguilera, DO Information 06/07/2025 MyChart Message Enc [facility] Internal [address] [phone] Rosie Aguilera, DO URGENT PRIOR AUTHORIZATION For OMNIPOD 06/03/2025 MyChart Message Enc [facility] Internal [address] [phone] Rosie Aguilera, Abcess-Yeast Infection Visit on 06-01-25 06/01/2025 8:20 AM CDT Office Visit [facility] Internal [address] [phone] Rosie Aguilera, DO Abscess (Pt is here today for a painful abscess on upper right inner thigh. Painful to walk. ) 06/01/2025 Abstract [facility] [place] [address] Delilah Hunt MA 06/01/2025 MyChart Message Enc [facility] Internal [address] [phone] Rosie Aguilera, DO Abcess 06/01/2025 Travel 05/31/2025 Telephone [facility] Internal [address] [phone] Rosie Aguilera, DO Advice (Nurse Triage - After Hours ([id number])/) 05/25/2025 Scan HEALTH INFO SRVCS Scanned, [facility] 05/25/[address] [phone] Rosie Aguilera, DO Derm Problem 05/25/2025 MyChart Message Enc [facility] Internal [address] [phone] Rosie Aguilera, DO [facility] 05/22/2025 MyChart Message Enc [facility] Family Internal [address] [phone] Rosie Aguilera, DO Atorvastatin 05/22/2025 Results Follow-Up [facility] Internal [address] [phone] Rosie Aguilera, DO LIPID PANEL, BASIC METABOLIC PANEL, ALBUMIN URINE RANDOM W/CREATININE 05/21/2025 1:00 PM CDT Office Visit [facility] Internal [address] [phone] Rosie Aguilera, DO Meet and Greet Provider [...] PM CDT Legal Sex Female 8:24 AM RECEPTION AGENT Gender Identity Female 05/21/2025 1:18 PM CDT [...] st Contact Info) Description 08/30/2025 11:00 AM RECEPTION AGENT Office Visit [facility] [facility] [address] [place], [place] [phone] Matthew Agustin MD 3 [place] [address] 12/26/2025 10:20 AM CDT Office Visit [facility] Medical Group Pulmonology Specialty Clinic - [address] [place] [address] Sebastien Naik MD 3 [facility] [address] [place], [place] [phone] Health Maintenance Due Date Last Done Comments Diabetes: Retinopathy Eye Exam 1995 Cervical Cancer Screening Pap Smear (Age 30 to 64) Every 3 Years 01/29/2024 01/28/2021 Annual Physical 05/21/2024 05/21/2023 COVID-19 Vaccine ( season) 2025 Hemoglobin A1C 09/05/2025 06/05/2025, 08/0 01/2025, 06/27/2024, Additional history exists Cervical Cancer Screening Pap with HPV Testing (Age 30 to 64) Every 5 Years 01/28/2026 01/28/2021 Cervical Cancer Screening with HPV 01/28/2026 Hepatitis B Vaccines (1 of 3 - 19+ 3-dose series) 05/21/2026 Postponed from 1996 (Patient/Guardian Refusal) Kidney Health Evaluation 05/21/2026 05/21/2025 Lipid Panel 05/21/2026 05/21/2025, 09/03/2023, 01/11/2023 Mammogram Screening 05/21/2026 04/09/2023, 03/03/2023, 11/14/2021, [...] 07/26/2019 Hepatitis C Completed 08/23/2023 PHQ-2 (Physician [place]) Completed 05/21/2025 Hepatitis A Vaccines Aged Out [...] hyperglycemia, with long-term current use of insulin ([facility]HCC) Essential hypertension BASIC METABOLIC PANEL Routine 05/21/2025 2:27 PM CDT Type 2 diabetes mellitus with hyperglycemia, with long-term current use of insulin ([facility]/HCC) Essential hypertension LIPID PANEL Routine 05/21/2025 2:27 PM CDT Hyperlipidemia, unspecified hyperlipidemia type COLLECTION VENOUS BLOOD VENIPUNCTURE Routine 05/21/2025 2:20 PM CDT Type 2 diabetes mellitus with hyperglycemia, with long-term current use of insulin ([facility]/HCC) Essential hypertension Hyperlipidemia, unspecified hyperlipidemia type COLLECT.CAPILLARY (FNGR,HEEL,EAR) Routine 05/21/2025 1:10 PM CDT Type 2 diabetes mellitus with hyperglycemia, with long-term current use of insulin ([facility]HCC) HEMOGLOBIN, GLYCOSYLATED Routine 05/21/2025 HEPATITIS C ANTIBODY 08/23/2023 10:05 AM RECEPTION AGENT MG DIAG W JOE LT DIGI Routine 04/09/2023 1:25 PM CDT Abnormal mammogram from Last 3 Months or Most Recently Relevant to Health Maintenance Results * COLOGUARD ([employer] SCIENCE) (05/28/2025 7:10 AM CDT) Pathologist [facility] COLOGUARD RESULT Negative Negative [employer] (CLIA #:[id number]) Comment: The Cologuard (TM) test was performed [...] cancer. Following a negative Cologuard result, the [place] [employer] and U.S. Multi-Society Task Force screening guidelines recommend a Cologuard re-screening interval of 3 years. References: [place] [employer] Guideline for Colorectal Cancer Screening: https://www.cancer.org/cancer/unyku-gcsadf-ofpftt/tistralkc-uefysemrn-jrmpkjc/ac s-rec ommendations.html.; Derek DK, Justin CR, Darrel ContrerasK, Colorectal Cancer Screening: Recommendations for Physicians and Patients from the U.S. Multi-Society Task Force on Colorectal Cancer Screening , Am J Gastroenterology 2017; 112:2840-7419. TEST DESCRIPTION: Composite algorithmic analysis of stool [...] (Becca Hankins al, N Engl J Med 2014;370(14):7215-9247.) Cologuard may produce a false negative or false positive result (no colorectal cancer or precancerous polyp present at colonoscopy follow up). A negative Cologuard test result does not guarantee the absence of CRC or advanced adenoma (pre-cancer). The current Cologuard screening interval is every 3 years. ([place] [employer] and U.S. Multi-Society Task Force). Cologuard performance data in a 10,000 patient pivotal study using colonoscopy as the reference method can be accessed at the following location: www.Seculert.com/results. Additional description of the Cologuard test process, warnings and precautions can be found at www.cologBalihoord.com. STOOL STOOL SPECIMEN / Unknown 05/28/2025 7:10 AM CDT 05/29/2025 10:01 AM CDT us Rosie Aguilera DO BODY FLUIDS AND STOOLS ORDERABL ES Final Result Performing Organization Address City/[facility] Co de Phone Number [place], [facility] [address] [place] [address], [place] (CLIA #:[id number]) [address] [place] [address] * (ABNORMAL) ALBUMIN URINE RANDOM W/CREATININE (05/21/2025 4:21 PM CDT) MICROALBUMIN (U) 23.3(H) <20 MG/L 05/22/20 25 10:04 AM CDT [facility] CREATININE RANDOM (U) 127.5 MG/DL 05/22/2025 10:04 AM CDT [facility] ALBUMIN/CREAT RATIO 18.3 <30 MG/G 05/22/2025 10:04 AM CDT [facility] URINE SPECIMEN / Unknown 05/21/2025 4:21 PM CDT us Rosie Aguilera DO URINE ORDERABLES Final Result Performing Organization Address [facility] Co de Phone Number [facility] [address] [place] [address], [place] [phone] * (ABNORMAL) BASIC METABOLIC PANEL (05/21/2025 2:27 PM CDT) SODIUM S/P/B 139 136 - 145 MMOL/L 05/22/2025 10:07 AM CDT [facility] POTASSIUM S/P/B 4.9 3.5 - 5.1 MMOL/L 05/22/2025 10:07 AM [facility] CHLORIDE S/P/B 100 98 - 107 MMOL/L 05/22/2025 10:07 AM [facility] CO2 25.7 21 - 32 MMOL/L 05/22/2025 10:07 AM [facility] GLUCOSE 216(H) 70 - 99 MG/DL 05/22/2025 10:07 AM [facility] BUN 25(H) 7 - 18 MG/DL 05/22/2025 10:07 AM [facility] CREATININE S/P/B 0.84 0.55 - 1.02 MG/DL 05/22/2025 10:07 AM [facility] CALCIUM S/P/B 10.0 8.4 - 10.5 MG/DL 05/22/2025 10:07 AM [facility] ANION GAP 13.3 5 - 15 MMOL/L 05/22/2025 10:07 AM [facility] Comment:REFERENCE RANGE NOT ESTABLISHED OSMOLALITY (CALC) 299 MOSM/KG 025 10:07 AM [facility] Comment:REFERENCE RANGE NOT ESTABLISHED GFR ESTIMATE 86(L) >90 ML/MIN/1. 73 M2 05/22/2025 10:07 AM [facility] GFR NOTES GFR REFERENCE S: 05/22/2025 10:07 AM [facility] Comment: THE ESTIMATED GFR IS CALCULATED USING [...] CDT Rosie Aguilera DO LABORATORY Final Result [facility] [address] [place] [address], * (ABNORMAL) LIPID PANEL (05/21/2025 2:27 PM CDT) [facility] CHOLESTEROL 235(H) <200 MG/DL 05/22/2025 10:07 AM CDT [facility] TRIGLYCERIDES 249(H) <150 MG/DL 05/22/2025 10:07 AM CDT [facility] HDL 71 >40 MG/DL 05/22/2025 10:07 AM CDT [facility] LDL-C 114(H) <100 MG/DL 05/22/2025 10:07 AM CDT [facility] VLDL CALCULATION 50(H) 5 - 28 MG/DL 05/22/2025 10:07 AM CDT [facility] CHOL/HDL RATIO 3.3 0.0 - 4.0 05/22/2025 10:07 AM CDT [facility] LDL/HDL 1.6 0.41 - 2.13 05/22/2025 10:07 AM CDT [facility] NON HDL CHOLESTEROL 164(H) <140 MG/DL 05/22/2025 10:07 AM CDT [facility] 05/21/2025 2:27 PM CDT Rosie Aguilera DO LABORATORY Final Result Performing Organization Address City/[facility]/ZIP Co de Phone Number [facility] [address] [place] [address], * HEMOGLOBIN, GLYCOSYLATED (05/21/2025) Pathologist [facility] HGB A1C 10.7 % 05/21/2025 [facility] Abstract LABORATORY Final Res ult * HEPATITIS C ANTIBODY (08/23/2023 10:05 AM RECEPTION AGENT) Pathologist [facility] HEPATITIS C AB Non Reactive Non Reacti [facility] 1 Comment: HCV antibody alone does not differentiate between previously resolved infection and active infection. Equivocal and Reactive HCV antibody results should be followed up with an HCV RNA test to support the diagnosis of active HCV infection. 08/23/2023 10:0 5 AM RECEPTION AGENT 08/23/2023 Narrative [facility] - 08/24/2023 5:08 AM RECEPTION AGENT Performed at: 01 - [facility] [id number] Warehouse Checker: Maninder Saenz PhD, Phone: [phone] Sarthak Munguia MD LABORATORY Final Result Performing Organization Address City/State/[facility] Co de Phone Number [facility] [address] [place] [address] [facility] * MG DIAG W JOE LT DIGI (04/09/2023 1:25 PM CDT) Anatomical Region Laterality Modality Breast Left Mammography 04/09/2023 3:05 PM CDT Narrative 04/09/2023 3:12 PM CDT EXAMINATION: Digital left diagnostic mammogram with 3-D tomography and left breast ultrasound [id number] EXAM DATE/TIME: 04/09/2023 1:25 PM REASON FOR [...] Recently Relevant to Health Maintenance [place] [address] [facility] Care Teams Crm Dynamics Developer Relationship Specialty Start Date End Date Rosie Aguilera DO [facility] [place] [address] PCP - General FAMILY PRACTICE 05/21/25
--- OUTSIDE RECORDS SUMMARY | 2025-08-21 19:33 | XMS_ITS | Encounter Summary ---
Author Organization [facility] Address [address] [place] [address] Care Team Providers Care Title Clerk Automobile Name Role Phone Qi Gabriel MD Primary Care Pr ovidRosie Quick DO Primary Care Provider [phone] Encounter Details Date Type Department Care Team (Late st Contact Info) Description 01/28/2023 Surya Power Magict Message Enc [facility] Medical Group Multispecialty Care - [address] [place] [address] Qi Gabriel MD Diarrhea/abdominal cramping Social History Tobacco Use Types Packs/Day Years Used Date Smoking Tobacco: Never Smokeless Tobacco: Never Comments No Sex and Gender Information Value Date Recorded Sex Assigned at Female 05/21/2025 1:18 PM CDT Legal Sex Female 8:24 AM SHOCK ABSORBER INSTALLER Gender Identity Female 05/21/2025 1:18 PM CDT [...] st Contact Info) Description 08/30/2025 11:00 AM SHOCK ABSORBER INSTALLER Office Visit [facility] [facility], [address] [address] Matthew Agustin MD [address] [place] [address] 12/26/2025 10:20 AM CDT Office Visit [facility] Medical Group Pulmonology Specialty Clinic - [address] [place] [address] Sebastien Naik MD [address] [address] documented as of this encounter Visit Diagnoses Not on filedocumented in this encounter Care Teams Title Clerk Automobile Relationship Specialty Start Date End Date Qi Gabriel MD PCP - General FAMILY PRACTICE 01/11/23 03/21/23 Rosie Aguilera DO [address] [place] [address] PCP - General FAMILY PRACTICE 05/21/25 documented as of this encounter
--- OUTSIDE RECORDS SUMMARY | 2025-08-21 19:33 | XMS_ITS | Encounter Summary ---
Author Organization [facility] Address [facility] [place] [address] Care Team Providers Care Cad Draftsman Name Role Phone Rosie Rivera DO Primary Care Provider [phone] Reason for Visit * Reason Onset Date Comments Medication Request 08/20/2025 Encounter Details Date Type Department Care Team (Late st Contact Info) Description 08/20/2025 Telephone [facility] Medical Group Family & Internal Medicine [address] [phone] Rosie Rievra DO [address] [address] Medication Request Social History Tobacco Use Types Packs/Day Years Used Date Smoking Tobacco: Never Smokeless Tobacco: Never Comments:Counseled by Dr Charisse uv. Alcohol Use Standard Drinks/Week Comments Never 0 (1 standard drink = 0.6 oz pur e alcohol) PHQ-2 Answer Date Recorded Patient Health Questionnaire-2 Score 1 05/21/2025 Comments No Sex and Gender Information Value Date Recorded Sex Assigned at Female 05/21/2025 1:18 PM CDT Legal Sex Female 8:24 AM OCCUPATIONAL HEALTH AND SAFETY MANAGER Gender Identity Female 05/21/2025 1:18 PM CDT Sexual Orientation Not on file documented as of this encounter Progress Notes * Graciela Downey MA - 08/20/2025 4:00 PM CST Refill request received from Patient Last visit with ROSIE RIVERA in FAMILY PRACTICE was on: 08/06/2025 in [facility] Future Appointments Date Time Provider Department Center 08/30/2025 11:00 AM [facility]in [facility]/26/2025 10:20 AM Sebastien Naik MD [facility] [id number] Prescription request responded to early today from a MyChart message from patient. [id number] - [place], [place] - [address] [place] [facility] [address] [facility] - [place], [place] - [address] [facility] [address] [facility] [address] Medications - Current, Listed Continuously[1] [1] Current [...] total) by mouth daily., Disp: , Rfl: PATIONAL HEALTH AND SAFETY MANAGER * Pia Sow - 08/20/2025 9:55 AM CST Refill request received from Patient Medication: insulin lispro, 1 Unit Dial, (HUMALOG) 100 UNIT/ML injection (PEN) Pharmacy: [id number] - [place] - [address] Last visit with ROSIE RIVERA in FAMILY PRACTICE was on: 08/06/2025 in [facility] Future Appointments Date Time Provider Department Center 08/30/2025 11:00 AM Matthew Agustin MD [facility]/2025 10:20 AM Sebastien Naik MD [facility]GP[facility] [id number] Patient said she only has 1 pen left please advise. PATIONAL HEALTH AND SAFETY MANAGER documented in this encounter Plan of Treatment Upcoming Encounters Date Type Department Care Team (Late st Contact Info) Description 08/30/2025 11:00 AM OCCUPATIONAL HEALTH AND SAFETY MANAGER Office Visit [facility] [facility], [address] [address] Matthew Agustin MD 3 [place] [address] 12/26/2025 10:20 AM CDT Office Visit [facility] Medical Group Pulmonology Specialty Clinic - [address] [place] [address] Sebastien Naik MD [address] [address] documented as of this encounter Visit Diagnoses Not on filedocumented in this encounter Additional Health Concerns Assessment Noted Time PHQ-9 Depression Total Score: 8 05/21/20 23 1:09 PM CDT documented as of this encounter Care Teams Cad Draftsman Relationship Specialty Start Date End Date Rosie Rivera DO [address] [place] [address] PCP - General FAMILY PRACTICE 05/21/25 documented as of this encounter
--- OUTSIDE RECORDS SUMMARY | 2025-08-21 19:33 | XMS_ITS | Encounter Summary ---
Author Organization [facility] Address [facility] [place] [address] Care Team Providers Care Painter Touch Up Name Role Phone Rosie Aguilera DO Primary Care Provider [phone] Encounter Details Date Type Department Care Team (Late Contact Info) Description 06/03/2025 MyChart Message Enc [facility] Medical Group Family & Internal Medicine [address] [phone] Rosie Aguilera DO 3 [facility]. [facility] [address] [place], [place] [phone] Abcess-Yeast Infection Visit on 06-01-25 Social History [...] PM CDT Legal Sex Female 8:24 AM CNC MILLING MACHINIST Gender Identity Female 05/21/2025 1:18 PM CDT Sexual Orientation Not on file documented as of this encounter Plan of Treatment Upcoming Encounters Date Type Department Care Team (Late st Contact Info) Description 08/30/2025 11:00 AM CNC MILLING MACHINIST Office Visit [place] [place] [facility], [facility] [address] [place], [place] [phone] Matthew Agustin MD 3 [place] [address] 12/26/2025 10:20 AM CDT Office Visit [facility] Medical [facility] Pulmonology Specialty Clinic - [address] [place] [address] Sebastien Naik MD [address] [address] documented as of this encounter Visit Diagnoses Not on filedocumented in this encounter Additional Health Concerns Assessment Noted Time PHQ-9 Depression Total Score: 8 05/21/20 23 1:09 PM CDT documented as of this encounter Care Teams Painter Touch Up Relationship Specialty Start Date End Date Rosie Aguilera DO [address] [place] [address] [phone] PCP - General FAMILY PRACTICE 05/21/25 documented as of this encounter
--- OUTSIDE RECORDS SUMMARY | 2025-08-21 19:33 | XMS_ITS | Encounter Summary ---
Author Organization [facility] Address [facility]6 [place] [address] Care Team Providers Care Sports Anchor Name Role Phone Rosie Aguilera DO Primary Care Provider [phone] Reason for Visit * Reason Onset Date Comments Lab Results 08/21/2025 Encounter Details Date Type Department Care Team (Late st Contact Info) Description 08/21/2025 Telephone [facility] Medical Group Family & Internal Medicine [address] [phone] Rosie Aguilera DO [address] [address] Lab Results Social History Tobacco [...] PM CDT Legal Sex Female 8:24 AM CERT OCCUPATIONAL THERAPY ASST Gender Identity Female 05/21/2025 1:18 PM CDT [...] agreeable and will go to the ED. OCCUPATIONAL THERAPY ASST documented in this encounter Plan of Treatment Upcoming Encounters Date Type Department Care Team (Late st Contact Info) Description 08/30/2025 11:00 AM CERT OCCUPATIONAL THERAPY ASST Office Visit [place] [facility] [facility] [place] [address] [place] [address] Matthew Agustin MD 3 [place] [address] 12/26/2025 10:20 AM CDT Office Visit [facility] Medical Group Pulmonology Specialty Clinic - [address] [place] [address] Sebastien Naik MD 3 [facility] [place] [address] [place] [address] documented as of this encounter Visit Diagnoses Not on filedocumented in this encounter Additional Health Concerns Assessment Noted Time PHQ-9 Depression Total Score: 8 05/21/20 23 1:09 PM CDT documented as of this encounter Care Teams Sports Anchor Relationship Specialty Start Date End Date Rosie Aguilera DO [address] [place] [id number] PCP - General FAMILY PRACTICE 05/21/25 documented as of this encounter
--- OUTSIDE RECORDS SUMMARY | 2025-08-21 19:33 | XMS_ITS | Encounter Summary ---
Author Organization [facility] Address [facility] [place] [address] Care Team Providers Care Education Administrative Assistant Name Role Phone Rosie Aguilera DO Primary Care Provider [phone] Encounter Details Date Type Department Care Team (Late Contact Info) Description 06/25/2025 MyChart Message Enc [facility] Family & Internal Medicine [address] [phone] Rosie Aguilera DO 3 [facility]. [facility] [address] [place], [place] [phone] My hospital records Social History Tobacco Use [...] PM CDT Legal Sex Female 8:24 AM PASSENGER SERVICE AGENT Gender Identity Female 05/21/2025 1:18 PM CDT Sexual Orientation Not on file documented as of this encounter Plan of Treatment Upcoming Encounters Date Type Department Care Team (Late Contact Info) Description 08/30/2025 11:00 AM PASSENGER SERVICE AGENT Office Visit [place] [place] [facility], [facility] [address] [place], [place] [phone] Matthew Agusitn MD 3 [place] [address] 12/26/2025 10:20 AM CDT Office Visit [facility] Pulmonology Specialty Clinic - [address] [place] [address] Sebastien Naik MD [address] [address] documented as of this encounter Visit Diagnoses Not on filedocumented in this encounter Additional Health Concerns Assessment Noted Time PHQ-9 Depression Total Score: 8 05/21/20 23 1:09 PM CDT documented as of this encounter Care Teams Education Administrative Assistant Relationship Specialty Start Date End Date Rosie Aguilera DO [address] [place] [address] PCP - General FAMILY PRACTICE 05/21/25 documented as of this encounter
--- OUTSIDE RECORDS SUMMARY | 2025-08-21 19:33 | XMS_ITS | Encounter Summary ---
Author Organization [facility] Address [address] [place] [address] Care Team Providers Care Players Assistant Name Role Phone Rosie Aguilera DO Primary Care Provider [phone] Encounter Details Date Type Department Care Team (Late Contact Info) Description 05/25/2025 MyChart Message Enc [facility] Medical Group Family & Internal Medicine [address] [phone] Rosie Aguilera DO 3 [facility]. [facility] [address] [place], [place] [phone] [facility] Program Social History Tobacco Use Types Packs/Day [...] PM CDT Legal Sex Female 8:24 AM STAVE INSPECTOR Gender Identity Female 05/21/2025 1:18 PM CDT Sexual Orientation Not on file documented as of this encounter Plan of Treatment Upcoming Encounters Date Type Department Care Team (Late st Contact Info) Description 08/30/2025 11:00 AM STAVE INSPECTOR Office Visit [place] [facility], [facility] [address] [place], [place] [phone] Matthew Agustin MD 3 [place] [address] 12/26/2025 10:20 AM CDT Office Visit [facility] Medical Group Pulmonology Specialty Clinic - [address] [place] [address] Sebastien Naik MD 3 [facility] [place] [address] [place] [address] documented as of this encounter Visit Diagnoses Not on filedocumented in this encounter Additional Health Concerns Assessment Noted Time PHQ-9 Depression Total Score: 8 05/21/20 23 1:09 PM CDT documented as of this encounter Care Teams Players Assistant Relationship Specialty Start Date End Date Rosie Aguilera DO [address] [place] [address] PCP - General FAMILY PRACTICE 05/21/25 documented as of this encounter
--- OUTSIDE RECORDS SUMMARY | 2025-08-21 19:33 | XMS_ITS | Encounter Summary ---
Author Organization [facility] Address [address] [place] [address] Phone Care Team Providers Care Keno Manager Name Role Phone Rosie Aguilera DO Primary Care Provider [phone] Encounter Details Date Type Department Care Team (Late st Contact Info) Description 07/02/2025 Nursing Facility [facility] [place] [address] Zahraa Carreno, BANKING ASSISTANT, SUPPLY CHAIN DESIGN MANAGER #[address] [place] [address] Social History Tobacco Use Types Packs/Day Years Used Date Smoking Tobacco: Never Assessed Comments No Sex and Gender Information Value Date Recorded Sex Assigned at Not on file Legal Sex Female 12:09 PM CDT Gender Identity Not on file Sexual Orientation Not on file documented as of this encounter Progress Notes * Zahraa Carreno, BANKING ASSISTANT, SUPPLY CHAIN DESIGN MANAGER - 07/02/2025 11:59 PM CDT [facility] PROGRESS NOTE Nelly J Petrona is a 49 y.o. female at [facility] for rehabilitation. Subjective: Interval History: I am [...] Right Perineum Multiple Incision and drainage at [facility]. Sutures intact, found to have large volume of drainage from area. Sent to [facility] ED for CT A/P. Results noted and sent to her surgeon at [facility]. Pt to follow up in the office tomorrow at [facility] Continue local wound care DM type 2 A1C was > 11 during hospitalization at [facility] BS still running high in 200-300s Increased [...] on filedocumented in this encounter Care Teams Keno Manager Relationship Specialty Start Date End Date Rosie Aguilera DO [address] [place] [address] PCP - General Family Medicine 07/02/25 documented as of this encounter
--- OUTSIDE RECORDS SUMMARY | 2025-08-21 19:33 | XMS_ITS | Encounter Summary ---
Author Organization [place] Address [facility]6 [place] [address] Care Team Providers Care Oscillograph Technician Name Role Phone Willy Rosie Carlisle DO Primary Care Provider [phone] Encounter Details Date Type Department Care Team (Latest Contact Info) Description 04/14/2023 MyChart Message Enc [facility] Medical Group Multispecialty Care - [place] [address] [address] [place] [address] Sarthak Munguia MD [address] [place] [address] [address] [place] [address] Ozempic 0.25-0.5 Social History Tobacco Use Types Packs/Day Years Used Date Smoking Tobacco: Never Smokeless Tobacco: Never Comments No Sex and Gender Information Value Date Recorded Sex Assigned at Female 05/21/2025 1:18 PM CDT Legal Sex Female 8:24 AM DIVISION PLANT ENGINEER Gender Identity Female 05/21/2025 1:18 PM CDT Sexual Orientation Not on file documented as of this encounter Plan of Treatment Upcoming Encounters Date Type Department Care Team (Late st Contact Info) Description 08/30/2025 11:00 AM DIVISION PLANT ENGINEER Office Visit [place] [facility] [facility], [place] [address] [place] [address] Matthew Agustin MD 3 [place] [address] 12/26/2025 10:20 AM CDT Office Visit [facility] Medical Group Pulmonology Specialty Clinic - [address] [place] [address] Sebastien Naik MD [address] [place] [address] documented as of this encounter Visit Diagnoses Not on filedocumented in this encounter Care Teams Oscillograph Technician Relationship Specialty Start Date End Date Rosie Aguilera DO [facility] [place] [address] PCP - General FAMILY PRACTICE 05/21/25 documented as of this encounter
--- OUTSIDE RECORDS SUMMARY | 2025-08-21 19:33 | XMS_ITS | Encounter Summary ---
Author Organization [facility] Address [address] [place] [address] Care Team Providers Care Nurse Practical Name Role Phone Qi Gabriel MD Primary Care Pr ovidRosie Quick DO Primary Care Provider Encounter Details Date Type Department Care Team (Late st Contact Info) Description 01/28/2023 [email or web address] Message Enc [facility] Medical Group Multispecialty Care - [address] [place] [address] Qi Gabriel MD [facility] Social History Tobacco Use Types Packs/Day Years Used Date Smoking Tobacco: Never Smokeless Tobacco: Never Comments No Sex and Gender Information Value Date Recorded Sex Assigned at Female 05/21/2025 1:18 PM CDT Legal Sex Female 8:24 AM MEDICAID ELIGIBILITY SPECIALIST Gender Identity Female 05/21/2025 1:18 PM [...] st Contact Info) Description 08/30/2025 11:00 AM MEDICAID ELIGIBILITY SPECIALIST Office Visit [place] [facility] [facility], [place] [address] [place] [address] Matthew Agustin MD 3 [place] [address] 12/26/2025 10:20 AM CDT Office Visit [facility] Medical Group Pulmonology Specialty Clinic - [address] [place] [address] Sebastien Naik MD 3 [facility] [place] [facility] [place] [address] documented as of this encounter Visit Diagnoses Not on filedocumented in this encounter Care Teams Nurse Practical Relationship Specialty Start Date End Date Qi Gabriel MD PCP - General FAMILY PRACTICE 01/11/23 03/21/23 Rosie Aguilera DO [facility]1 [place] [address] PCP - General FAMILY PRACTICE 05/21/25 documented as of this encounter
--- OUTSIDE RECORDS SUMMARY | 2025-08-21 19:33 | XMS_ITS | Encounter Summary ---
Author Organization [facility] Address [address] [place] [address] Care Team Providers Care Oracle Iam Consultant Name Role Phone Rosie Aguilera Primary Care Provider [phone] Encounter Details Date Type Department Care Team [...] PM CDT Legal Sex Female 8:24 AM PAINTER TOUCH UP Gender Identity Female 05/21/2025 1:18 PM CDT [...] (Late Contact Info) Description 08/30/2025 11:00 AM PAINTER TOUCH UP Office [facility], [facility] [address] [place] [address] Matthew Agustin MD 3 [place] [address] 12/26/2025 10:20 AM CDT Office Visit [facility] Medical Group Pulmonology Specialty Clinic - [address] [place] [address] Sebastien Naik MD 3 [facility] [address] [place] [address] documented as of this encounter Visit Diagnoses Not on filedocumented in this encounter Additional Health Concerns Assessment Noted Time PHQ-9 Depression Total Score: 8 05/21/20 23 1:09 PM CDT documented as of this encounter Care Teams Oracle Iam Consultant Relationship Specialty Start Date End Date Rosie Aguilera DO [address] [place] [address] PCP - General FAMILY PRACTICE 05/21/25 documented as of this encounter
--- OUTSIDE RECORDS SUMMARY | 2025-08-21 19:33 | XMS_ITS | Encounter Summary ---
Author Organization [facility] Address [address] [place] [address] Phone Care Team Providers Care Director Business Management Name Role Phone Rosie Aguilera DO Primary Care Provider [phone] Encounter Details Date Type Department Care Team (Late st Contact Info) Description 07/05/2025 Nursing Facility [facility] INTERMEDIATE SERVICES [facility] [place] [address] Zahraa Carreno, JOSHUA, POWER PLANT SUPERINTENDENT [address] [place] [address] Social History Tobacco Use Types Packs/Day Years Used Date Smoking Tobacco: Never Assessed Comments No Sex and Gender Information Value Date Recorded Sex Assigned at Not on file Legal Sex Female 12:09 PM CDT Gender Identity Not on file Sexual Orientation Not on file documented as of this encounter Progress Notes * Zahraa Carreno, COMMISSIONS SPECIALIST, POWER PLANT SUPERINTENDENT - 07/05/2025 11:[address] [facility] PROGRESS NOTE Nelly J Petrona is a 49 y.o. female at [facility] for rehabilitation. Subjective: Interval History: I [...] Right Perineum Multiple Incision and drainage at [facility]. Sutures intact, found to have large volume of drainage from area. Sent to [facility] ED for CT A/P. Results noted and sent to her surgeon at [facility]. Pt to follow up in the office tomorrow at [facility] Continue local wound care Seen by surgeon at [facility] and continue current local wound care and sutures to be removed on next visit per pt DM type 2 A1C was > 11 during hospitalization at [facility] BS still running high in 200-300s Increased [...] on filedocumented in this encounter Care Teams Director Business Management Relationship Specialty Start Date End Date Rosie Aguilera DO [address] [place] [address], [place] [address] [place] [address] PCP - General Family Medicine 07/02/25 documented as of this encounter
--- OUTSIDE RECORDS SUMMARY | 2025-08-21 19:33 | XMS_ITS | Clinical Summary ---
Author Organization [facility] Address [address] [address] Care Team Providers Care Auto Body Estimator Name Role Phone Rosie Aguilera DO Primary Care Provider [phone] Chip Hagen MD Unavailable +- [phone] Chad Castellon MD Unavailable + -[phone] Allergies No known active allergies Medications pen [...] 0 06/21/20 25 025 Discontinued PNV with rzwomys-ummo-WV 27 mg iron- 1 mg tablet Take [...] & Plan (06/21/2025 11:23 AM CDT): 06/21 [facility] dispense report reviewed and updated in [...] 08/12/2020 Assessment & Plan (11/05/2021 9:16 AM MED CARE MANAGER): Stable Continue bupropion and fluoxetine Assessment & [...] provided. Assessment & Plan (11/05/2021 8:47 AM MED CARE MANAGER): BMI Follow-up includes: nutrition counseling, exercise counseling [...] Regular aerobic exercise program discussed. 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 Surgical weight loss discussed: Not receptive to the idea. Persistent disorder of initiating or maintaining sleep 04/08/2018 Anxiety 03/29/2018 Assessment & Plan (06/21/2025 11:41 AM CDT): Home regimen: welbutrin, venlefaxine (continued) --- f/u PCP or previously established provider for ongoing management on hospital discharge Assessment & Plan (11/05/2021 9:16 AM MED CARE MANAGER): Increase fluoxetine to 60mg daily Continue bupropion [...] subcutaneously Q week Follow up with an product support consultant in her insurance network and will contact them to schedule an appointment Assessment & Plan (03/06/2022 12:03 PM CDT): A1c today Continue omnipod Will check with insurance which GLP-1 is covered. Assessment & Plan (11/05/2021 9:15 AM MED CARE MANAGER): A1c today asked patient to call her [...] loss Assessment & Plan (11/05/2021 9:13 AM MED CARE MANAGER): BP above goal Continue weight loss Continue [...] discharge Assessment & Plan (11/05/2021 9:12 AM MED CARE MANAGER): Continue pravastatin Lipid panel today Assessment & [...] antibiotics and monitor as clinical course dictates. [facility] 07/26/2019 Assessment & Plan (07/26/2019 2:29 PM CDT): Patient here to today for physical exam. The patient was evaluated and all health maintenance objectives were discussed and addressed. Rash 07/26/2019 04/10/2020 Assessment & Plan (12/01/2019 11:17 AM MED CARE MANAGER): Patient has a small erythematous rash on [...] obesity with BMI of 5 0.0-59.9, adult ([facility]) 11/23/2017 03/06/2022 Overview (03/09/2018): BMI Follow-up includes: [...] time Assessment & Plan (11/23/2017 3:45 PM MED CARE MANAGER): BMI Follow-up includes: nutrition counseling, exercise counseling and education provided. Sinus complaint 11/23/2017 04/10/2020 Assessment & Plan (11/23/2017 4:09 PM MED CARE MANAGER): Start antibiotic. Irrigate sinuses with saline. If [...] are very high likely due to her elu-va-pfowjsf diabetes otherwise LDL is excellent Acute non-recurrent [...] 08/03/2025 [facility] [address] [place] [address] 3rd [address] [place] [address] Socorro Morris, RN 08/03/2025 [facility]phone [facility] [address] [place] [address] 3rd Floor [address] [place] [address] Chloé Villalta 08/03/2025 Telephone [facility] [address] [place] [address] 3rd Floor [address] [place] [address] Socorro Morris, RN 08/02/2025 11:15 AM CDT Office Visit [facility] Critical [facility] [address] [place] [address] [place] [phone] Necrotizing soft tissue infection (Primary Dx) 08/02/2025 Telephone [facility] 2 [facility] [address] [place] [address] Darien Koroma MD 08/02/2025 Telephone [facility] [address] [place] [address] 3rd Floor [address] [place] [phone] Connie Carreno Appointment 07/23/2025 Telephone [facility] [address] [facility] [address] [place] [address] Chip Hagen MD Hospital Follow Up 07/14/2025 2:39 PM CDT - 07/26/2025 3:55 PM CDT Hospital Encounter [facility] 1 [place] [address] Miranda Chambers MD Shaba, Winnie, MD Kheirkhahan, Nazanin, MD Cellulitis of abdominal wall (Primary Dx); Paroxysmal A-fib (HCC); Primary hypertension Discharge Disposition: Discharge to home, home health skilled care 07/11/2025 Telephone [facility] [address] [place] [address] 3rd [address] [place] [phone] Connie Carreno wound/ wound d ishenced 07/05/2025 Telephone [facility] Acute and Critical Care Services [address] [place] [address] [address] [place] [address] Josephine Dhillon RN stitches coming out/lot of drainage 07/03/2025 10:30 AM CDT Office Visit [facility] Acute and Critical Care Services [address] [place] [address] [address] [place] [address] Necrotizing soft tissue infection (Primary Dx) 07/02/2025 Telephone [facility] Surgeon [address] [place] [address] Félix Arteaga MD 07/02/2025 Documentation General Surgery Adri Horvath PA 07/02/2025 Telephone [facility] [address] [place] [address] 3rd Floor [address] [place] [phone] CarrenoRemigioen 06/29/2025 Documentation General Surgery Lisha Hernandez NP 06/12/2025 2:56 PM CDT Anesthesia Event [facility] Operating Room 1 [place] [phone] Higinio Tamayo MD PhD Aiyana Alcantara NP 06/12/2025 2:13 PM CDT - 06/12/2025 5:23 PM CDT Surgery [facility] Operating Room 1 [place] [phone] Claire Krishnan MD WOUND CLOSURE - PERINEUM 06/10/2025 4:06 PM CDT Anesthesia Event [facility] Operating Room 1 [place] [phone] Higinio Tamayo MD PhD Lucretia Robles MD 06/10/2025 2:45 PM CDT - 06/10/2025 5:05 PM CDT Surgery [facility] Operating Room 1 [place] [phone] Claire Krishnan MD DEBRIDEMENT - PERINEUM,PARTIAL CLOSURE WOUND 06/08/2025 Documentation [facility] Acute and Critical Care Services [address] [place] [address] [address] [place] [address] Krystyna Menjivar 06/07/2025 5:12 PM CDT Anesthesia Event [facility] Operating Room [address] [place] [phone] Dayana Dias MD Jablonski, Melody A., NP 06/07/2025 3:59 PM CDT - 06/07/2025 5:49 PM CDT Surgery [facility] Operating Room 1 [place] [phone] Dari Bojorquez MD DEBRIDEMENT - PERINEUM 06/04/2025 2:53 PM CDT Anesthesia Event [facility] Operating Room 1 [place] [address] Edgar Blank MD Fischer, Elissa U., NP 06/04/2025 1:15 PM CDT - 06/04/2025 3:55 PM CDT Surgery [facility] Operating Room 1 [place] [phone] Lexi Tolbert, IRRIGATION AND DEBRIDEMENT - GROIN, PERINEUM, VULVAR 06/02/2025 7:43 AM CDT Anesthesia Event [facility] Operating Room 1 [place] [phone] Niki Medrano MD Bharadwaj, Millie Malik MD 06/02/2025 7:30 AM CDT - 06/02/2025 9:20 AM CDT Surgery [facility] Operating Room 1 [place] [address] Romana Ahn MD IRRIGATION AND DEBRIDEMENT GROIN 06/02/2025 4:47 AM CDT - 06/22/2025 1:15 PM CDT Hospital Encounter [address] [address] Sol Barba MD Matsumoto, Dari Pierre MD [...] diabetes mellitus Diabete s type 2; Comments: [facility] 01/24/2016 - Hypertension Hypertension Hyperlipidemia Hyperlipidemia; Comments: [facility] 01/24/2016 - Morbid obesity (HCC) Anxiety Depression [...] often do you attend chur ch or mormonism services? Never 07/16/2025 Do you belong to any clubs o r organizations such as samaritan groups, unions, fraternal or athletic groups, or [...] any time in the past 12 m [facility], were you homeless or living in a custodial (including now)? No 07/16/2025 [facility] Utilities Answer Date Recorded In the [...] on file Legal Sex Female 2:20 AM MED CARE MANAGER Gender Identity Female 10/21/2019 10:23 PM MED CARE MANAGER Sexual Orientation Not on file Occupation Industry [...] DEVICE Routine 06/12/2025 5 :22 PM CDT [place] 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 Routine 06/12/2025 3:36 PM CDT [place] AN ELECTIVE ENDOTRACHEAL AIRWAY Routine 06/12/2025 3:36 [...] DEVICE Routine 06/10/2025 4 :52 PM CDT [place] 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 Routine 06/10/2025 4:40 PM CDT [place] AN ELECTIVE ENDOTRACHEAL AIRWAY Routine 06/10/2025 4:40 [...] DEVICE Routine 06/07/2025 6 :52 PM CDT [place] 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 Routine 06/07/2025 5:49 PM CDT [place] AN ELECTIVE ENDOTRACHEAL AIRWAY Routine 06/07/2025 5:49 [...] DEVICE Routine 06/04/2025 3 :33 PM CDT [place] 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 Routine 06/04/2025 3:31 PM CDT [place] AN ELECTIVE ENDOTRACHEAL AIRWAY Routine 06/04/2025 3:31 PM CDT DEBRIDEMENT - PERINEUM 06/04/2025 2:57 PM CDT Necrotizing soft tissue infection Case Notes [facility] [phone] Special Needs lithotomy POCT GLUCOSE DEVICE Routine [...] Read Routine (OP Routine) 11/14/2021 9:21 AM MED CARE MANAGER Encounter for screening mammogram for malignant neoplasm of breast ALBUMIN CREATININE RATIO, URINE Routine 11/05/2021 9:19 AM MED CARE MANAGER Type 2 diabetes mellitus with other specified complication, with long-term current use of insulin (HCC) DIABETES FOOT EXAM Routine 07/26/2019 from Last 3 Months or Most Recently Relevant to Health Maintenance Results * Post-Discharge Dressing Care (08/02/2025 11:26 AM CDT) Narrative Radhika Del Toro RN - 08/02/2025 11:26 AM CDT [facility] with ABD Wound care performed per [...] ORDERABLES Final Result VIKKI MERCADO (JAMES) 1 [facility] [email or web address] [address] * (ABNORMAL) Basic metabolic panel (07/26/2025 12:13 [...] ORDERABLES Final Result [facility]KKI MERCADO (JAMES) 1 [facility] [employer] [place] [address] * POCT glucose (07/26/2025 11:53 AM CDT) Glucose, POC 199 70 - 199 mg/dL Blood 07/26/2025 11:5 3 AM CDT 07/26/2025 11:53 AM CDT Miranda Chambers MD LAB POCT ORDERABLES - DEVICE Final Result [facility] (SLATEDALE) 1 [facility] [place] [address] * (ABNORMAL) POCT glucose (07/26/2025 7:58 AM CDT) Glucose, POC 202(H) 70 - 199 mg/dL Blood 07/26/2025 7:58 AM CDT 07/26/2025 7:58 AM CDT Miranda Chambers MD LAB POCT ORDERABLES - DEVICE Final Result Performing Organization Address City/[facility]/ZIP Co de Phone Number [facility] (SLATEDALE) 1 [facility] [place] [place] [address] * eGFR (07/26/2025 6:33 AM CDT) eGFR [...] Yolanda abdul Result [facility] (JAMES) 1 [facility] [place] [address] * (ABNORMAL) CBC without differential (07/26/2025 6:33 [...] Yolanda l Result [facility] MERCADO (JAMES) 1 [facility] [place] [address] * (ABNORMAL) Basic metabolic panel (07/26/2025 6:33 [...] Yolanda l Result [facility] MERCADO (JAMES) 1 [facility] [place] [address] * POCT glucose (07/26/2025 2:25 AM CDT) Glucose, POC 138 70 - 199 mg/dL Blood 07/26/2025 2:25 AM CDT 07/26/2025 2:25 AM CDT us Miranda Chambers MD LAB POCT ORDERABLES - DEVICE Final Result Performing Organization Address City/[facility]/ZIP Co de Phone Number VIKKI MERCADO (SLATEDALE) 1 [facility] [employer] [place] [address] * POCT glucose (07/25/2025 9:24 PM CDT) Glucose, POC 186 70 - 199 mg/dL Blood 07/25/2025 9:24 PM CDT 07/25/2025 9:24 PM CDT us Miranda Chambers MD LAB POCT ORDERABLES - DEVICE Final Result Performing Organization Address City[facility]/ZIP Co de Phone Number [facility] (SLATED[place]) 1 [facility] [employer] [place] [address] * POCT glucose (07/25/2025 4:27 PM CDT) Glucose, POC 160 70 - 199 mg/dL Blood 07/25/2025 4:27 PM CDT 07/25/2025 4:27 PM CDT Miranda Chambers MD LAB POCT ORDERABLES - DEVICE Final Result [facility] ([place]) 1 [facility] [employer] [place] [address] * POCT glucose (07/25/2025 10:53 AM CDT) Glucose, POC 193 70 - 199 mg/dL Blood 07/25/2025 10:5 3 AM CDT 07/25/2025 10:53 AM CDT Miranda Chambers MD LAB POCT ORDERABLES - DEVICE Final Result VIKKI DiggsSLATEDALE) 1 [facility] [employer] [place] [address] * POCT glucose (07/25/2025 7:34 AM CDT) Glucose, POC 189 70 - 199 mg/dL Blood 07/25/2025 7:34 AM CDT 07/25/2025 7:34 AM CDT Miranda Chambers MD LAB POCT ORDERABLES - DEVICE Final Result Performing Organization Address [facility] Co de Phone Number VIKKI DiggsSLATEDALE) 1 [facility] [employer] [place] [address] * eGFR (07/25/2025 5:46 AM CDT) eGFR [...] Yolanda l Result [facility] (JAMES) 1 [facility] [employer] [place] [address] * (ABNORMAL) CBC without differential (07/25/2025 5:46 AM CDT) [facility] WBC 14.76(H) 3.80 - 9.90 K/cumm [...] Yolanda l Result VIKKI MERCADO (JAMES) 1 [facility] [place] [address] * (ABNORMAL) Basic metabolic panel (07/25/2025 5:46 AM CDT) Sodium 138 135 - 145 mmol/L [facility] (JAMES) Potassium, pl 4.4 3.3 - 4.9 mmol/L [facility] (JAMES) Chloride 100 97 - 110 mmol/L [facility] (JAMES) CO2 27 22 - 32 mmol/L [facility] (JAMES) Anion gap 11 2 - 15 mmol/L [facility] (JAMES) BUN 25 6 - 25 mg/dL [facility] (JAMES) Creatinine 0.54(L) 0.60 - 1.10 mg/dL [facility] (JAMES) Glucose 184 70 - 199 mg/dL [facility] (JAMES) Comment: Interpretive Data Fasting glucose >/= [...] 2022. Calcium 9.3 8.5 - 10.3 mg/dL [facility] (SLATEDALE) Blood 07/25/2025 5:46 AM CDT 07/25/2025 5:48 AM CDT us Nova Michael MD LAB BLOOD ORDERABLES Yolanda l Result [facility] (JAMES) 1 [facility] [place] [address] * POCT glucose (07/25/2025 2:39 AM CDT) Glucose, POC 152 70 - 199 mg/dL Blood 07/25/2025 2:39 AM CDT 07/25/2025 2:39 AM CDT Miranda Chambers MD LAB POCT ORDERABLES - DEVICE Final Result VIKKI MERCADO (SLATEDALE) 1 [facility] [employer] [facility] [employer] [place] [address] * POCT glucose (07/24/2025 8:21 PM CDT) Glucose, POC 162 70 - 199 mg/dL Blood 07/24/2025 8:21 PM CDT 07/24/2025 8:21 PM CDT Miranda Chambers MD LAB POCT ORDERABLES - DEVICE Final Result Performing Organization Address City[facility]/ZIP Co de Phone Number VIKKI MERCADO (SLATED[place]) 1 [facility] [employer] [facility] [employer] [place] [address] * POCT glucose (07/24/2025 4:35 PM CDT) Glucose, POC 139 70 - 199 mg/dL Blood 07/24/2025 4:35 PM CDT 07/24/2025 4:35 PM CDT Miranda Chambers MD LAB POCT ORDERABLES - DEVICE Final Result Performing Organization Address [facility]/ZIP Co de Phone Number VIKKI MERCADO (SLATEDALE) 1 [facility] [employer] [facility] [place] [address] * (ABNORMAL) POCT glucose (07/24/2025 11:17 AM CDT) Glucose, POC 223(H) 70 - 199 mg/dL Blood 07/24/2025 11:1 7 AM CDT 07/24/2025 11:17 AM CDT us Miranda Chambers MD LAB POCT ORDERABLES - DEVICE Final Result VIKKI MERCADO (JAMES) 1 [facility] [employer] [facility] [employer] [place] [address] * (ABNORMAL) POCT glucose (07/24/2025 7:58 AM CDT) Glucose, POC 213(H) 70 - 199 mg/dL Blood 07/24/2025 7:58 AM CDT 07/24/2025 7:58 AM CDT us Miranda Chambers MD LAB POCT ORDERABLES - DEVICE Final Result Performing Organization Address [facility]/ZIP Co de Phone Number [facility] ([place]) 1 [facility] [email or web address] [place] [address] * eGFR (07/24/2025 4:53 AM CDT) Pathologist [facility] eGFR >90 >=60 mL/min/1. 73 m2 Comment: [...] ORDERABLES Yolanda l Result Performing Organization Address [facility]/ZIP Co de Phone Number [facility] (JAMES) 1 [facility] Department [place] [address] * (ABNORMAL) CBC without differential (07/24/2025 4:53 [...] Yolanda l Result [facility] (JAMES) 1 [facility] [place] [address] * (ABNORMAL) Basic metabolic panel (07/24/2025 4:53 AM CDT) Pathologist [facility] Sodium 140 135 - 145 mmol/L [facility] (JAMES) Potassium, pl 4.1 3.3 - 4.9 mmol/L [facility] (JAMES) Chloride 100 97 - 110 mmol/L [facility] (JAMES) CO2 29 22 - 32 mmol/L [facility] (JAMES) Anion gap 11 2 - 15 mmol/L [facility] (JAMES) BUN 18 6 - 25 mg/dL [facility] (JAMES) Creatinine 0.52(L) 0.60 - 1.10 mg/dL [facility] (JAMES) Glucose 164 70 - 199 mg/dL [facility] (JAMES) Comment: Interpretive Data Fasting glucose >/= [...] 2022. Calcium 9.4 8.5 - 10.3 mg/dL [facility] (SLATED[place]) Blood 07/24/2025 4:53 AM CDT 07/24/2025 4:59 AM CDT Nova Michael MD LAB BLOOD ORDERABLES Yolanda l Result [facility] (SLATEDALE) 1 [facility] [employer] [place] [address] * POCT glucose (07/24/2025 2:34 AM CDT) [facility] Signature Glucose, POC 145 70 - 199 mg/dL Blood 07/24/2025 2:34 AM CDT 07/24/2025 2:34 AM CDT Nova Michael MD LAB POCT ORDERABLES - DEV ICE Final Result [facility] (SLATED[place]) 1 [facility] [employer] [place] [address] * POCT glucose (07/23/2025 8:40 PM CDT) Glucose, POC 134 70 - 199 mg/dL Blood 07/23/2025 8:40 PM CDT 07/23/2025 8:40 PM CDT Nova Michael MD LAB POCT ORDERABLES - DEV ICE Final Result Performing Organization Address City[facility]/ZIP Co de Phone Number VIKKI MERCADO (SLATEDALE) 1 [facility] [employer] [facility] [employer] [place] [address] * POCT glucose (07/23/2025 5:08 PM CDT) Glucose, POC 123 70 - 199 mg/dL Blood 07/23/2025 5:08 PM CDT 07/23/2025 5:08 PM CDT Nova Michael MD LAB POCT ORDERABLES - DEV ICE Final Result Performing Organization Address [facility] Co de Phone Number VIKKI MERCADO (SLATEDALE) 1 [facility] [employer] [facility] [employer] [place] [address] * (ABNORMAL) POCT glucose (07/23/2025 11:36 AM CDT) Glucose, POC 239(H) 70 - 199 mg/dL Blood 07/23/2025 11:3 6 AM CDT 07/23/2025 11:36 AM CDT Nova Michael MD LAB POCT ORDERABLES - DEV ICE Final Result VIKKI MERCADO (SLATEDALE) 1 [facility] [employer] [facility] [employer] [place] [address] * (ABNORMAL) POCT glucose (07/23/2025 7:35 AM CDT) Glucose, POC 229(H) 70 - 199 mg/dL Blood 07/23/2025 7:35 AM CDT 07/23/2025 7:35 AM CDT Nova Michael MD LAB POCT ORDERABLES - DEV ICE Final Result Performing Organization Address City[facility]/ZIP Co de Phone Number VIKKI MERCADO (SLATEDALE) 1 [facility] [employer] [place] [address] * eGFR (07/23/2025 5:10 AM CDT) eGFR [...] Yolanda l Result VIKKI MERCADO (JAMES) 1 [facility] [place] [address] * (ABNORMAL) CBC without differential (07/23/2025 5:10 [...] Yolanda abdul Result [facility] (JAMES) 1 [facility] [place] [address] * (ABNORMAL) Basic metabolic panel (07/23/2025 5:10 [...] Glucose 199 70 - 199 mg/dL [facility] (JAMES) Comment: Interpretive Data Fasting glucose >/= [...] Calcium 9.5 8.5 - 10.3 mg/dL [facility] (JAMES) Blood 07/23/2025 5:10 AM CDT 07/23/2025 5:13 AM CDT Nova Michael MD LAB BLOOD ORDERABLES Yolanda l Result Performing Organization Address City[facility]/ZIP Co de Phone Number [facility] ([place]) 1 [facility] [employer] [place] [address] * POCT glucose (07/23/2025 2:37 AM CDT) Glucose, POC 193 70 - 199 mg/dL Blood 07/23/2025 2:37 AM CDT 07/23/2025 2:37 AM CDT Nova Michael MD LAB POCT ORDERABLES - DEV ICE Final Result [facility] [place] (SLATEDALE) 1 [facility] [email or web address] [place] [address] * POCT glucose (07/22/2025 7:54 PM CDT) Glucose, POC 196 70 - 199 mg/dL Blood 07/22/2025 7:54 PM CDT 07/22/2025 7:54 PM CDT us Nova Michael MD LAB POCT ORDERABLES - DEV ICE Final Result Performing Organization Address [facility] Co de Phone Number VIKKI MERCADO (SLATEDALE) 1 [facility] [employer] [facility] [employer] [place] [address] * POCT glucose (07/22/2025 4:48 PM CDT) Glucose, POC 161 70 - 199 mg/dL Blood 07/22/2025 4:48 PM CDT 07/22/2025 4:48 PM CDT us Nova Michael MD LAB POCT ORDERABLES - DEV ICE Final Result Performing Organization Address [facility] de Phone Number VIKKI MERCADO (SLATEDALE) 1 [facility] [employer] [employer] [place] [address] * (ABNORMAL) POCT glucose (07/22/2025 11:39 AM CDT) Glucose, POC 212(H) 70 - 199 mg/dL Blood 07/22/2025 11:3 9 AM CDT 07/22/2025 11:39 AM CDT us Nova Michael MD LAB POCT ORDERABLES - DEV ICE Final Result Performing Organization Address [facility] de Phone Number VIKKI MERCADO (SLATEDALE) 1 [facility] [employer] [place] [address] * (ABNORMAL) POCT glucose (07/22/2025 7:41 AM CDT) Glucose, POC 201(H) 70 - 199 mg/dL Blood 07/22/2025 7:41 AM CDT 07/22/2025 7:41 AM CDT us Nova Michael MD LAB POCT ORDERABLES - DEV ICE Final Result Performing Organization Address [facility]/State/ZIP Co de Phone Number VIKKI MERCADO (JAMES) 1 [facility] [place] [address] * eGFR (07/22/2025 5:22 AM CDT) eGFR [...] ORDERABLES Yolanda abdul Result VIKKI MONTENEGRON) 1 [facility] [place] [address] * (ABNORMAL) CBC without differential (07/22/2025 5:22 AM CDT) WBC 13.69(H) 3.80 - 9.90 K/cumm Hgb 9.6(L) 11.9 - 15.5 g/dL [facility] (JAMES) Hct 31.6(L) 35.6 - 45.5 % [facility] ([place]ATEDALE) Plt 476(H) 150 - 400 K/cumm [facility] (JAMES) MPV 9.0(L) 9.1 - 12.3 [...] MD LAB BLOOD ORDERABLES Yolanda l Result [facility] (AJMES) 1 [facility] Department of Laboratories [place], [place] [address] * (ABNORMAL) Basic metabolic panel (07/22/2025 5:22 AM CDT) Sodium 141 135 - 145 mmol/L [facility] (JAMES) Potassium, pl 4.1 3.3 - 4.9 mmol/L [facility] ([place]AMES) Chloride 99 97 - 110 mmol/L [facility] ([place]AMES) CO2 30 22 - 32 mmol/L [facility] ([place]AMES) Anion gap 12 2 - 15 mmol/L [facility] ([place]AMES) BUN 11 6 - 25 mg/dL [facility] ([place]AMES) Creatinine 0.47(L) 0.60 [...] 9.7 8.5 - 10.3 mg/dL [facility] ([place]) Blood 07/22/2025 5:22 AM CDT 07/22/2025 5:29 AM CDT Nova Michael MD LAB BLOOD ORDERABLES Yolanda l Result Performing Organization Address City/[facility]/ZIP Co de Phone Number VIKKI MERCADO (SLATEDALE) 1 [facility] [employer] [facility] [employer] [place] [address] * POCT glucose (07/22/2025 3:07 AM CDT) Glucose, POC 174 70 - 199 mg/dL Blood 07/22/2025 3:07 AM CDT 07/22/2025 3:07 AM CDT Nova Michael MD LAB POCT ORDERABLES - DEV ICE Final Result Performing Organization Address [facility] [facility] Co de Phone Number VIKKI MERCADO (SLATEDALE) 1 [facility] [employer] [place] [address] * (ABNORMAL) POCT glucose (07/21/2025 7:43 PM CDT) Glucose, POC 281(H) 70 - 199 mg/dL Blood 07/21/2025 7:43 PM CDT 07/21/2025 7:43 PM CDT Nova Michael MD LAB POCT ORDERABLES - DEV ICE Final Result Performing Organization Address [facility] Co de Phone Number VIKKI MERCADO (SLATEDALE) 1 [facility] [place] [address] * POCT glucose (07/21/2025 4:21 PM CDT) Glucose, POC 180 70 - 199 mg/dL Blood 07/21/2025 4:21 PM CDT 07/21/2025 4:21 PM CDT Nova Michael MD LAB POCT ORDERABLES - DEV ICE Final Result VIKKI MERCADO (SLATEDALE) 1 [place] [address] * (ABNORMAL) POCT glucose (07/21/2025 11:27 AM CDT) [facility] Signature Glucose, POC 253(H) 70 - 199 mg/dL Blood 07/21/2025 11:2 7 AM CDT 07/21/2025 11:27 AM CDT us Nova Michael MD LAB POCT ORDERABLES - DEV ICE Final Result VIKKI MERCADO (SLATEDALE) 1 [facility] [place] [address] * POCT glucose (07/21/2025 7:53 AM CDT) [facility] Glucose, POC 192 70 - 199 mg/dL Blood 07/21/2025 7:53 AM CDT 07/21/2025 7:53 AM CDT Nova Michael MD LAB POCT ORDERABLES - DEV ICE Final Result VIKKI MERCADO (SLATEDALE) 1 [place] [address] * eGFR (07/21/2025 5:45 AM CDT) eGFR [...] LAB BLOOD ORDERABLES Yolanda abdul Result VIKKI [facility] (SLATEDALE) 1 [facility] [place] [address] * (ABNORMAL) CBC without differential (07/21/2025 5:45 AM CDT) WBC 13.95(H) 3.80 - 9.90 K/cumm Hgb 9.2(L) 11.9 - 15.5 g/dL [facility] (JAMES) Hct 30.4(L) 35.6 - 45.5 % [facility] Plt 460(H) 150 - 400 K/cumm [facility] ([facility] MPV 9.0(L) 9.1 - 12.3 fL [facility] (JAMES) RBC 3.50(L) 3.90 - 5.20 M/cumm [facility] (JAMES) MCV 86.9 81.3 - 96.4 fL [facility] ([facility] MCH 26.3(L) 27.1 - 33.3 pg [facility] (JAMES) MCHC 30.3(L) 32.3 - 35.7 g/dL [facility] (JAMES) RDW CV 15.9(H) 11.1 - 14.9 % [facility] (JAMES) RDW SD 49.6(H) 35.7 - 48.1 fL [facility] (JAMES) NRBC abs 0.00 0.00 - 0.01 K/cumm [facility] ([facility] Blood 07/21/2025 5:45 AM CDT 07/21/2025 5:48 AM CDT us Nova Michael MD LAB BLOOD ORDERABLES Yolanda abdul Result [facility] (JAMES) 1 [facility] [place] [address] * (ABNORMAL) Basic metabolic panel (07/21/2025 5:45 AM CDT) Sodium 142 135 - 145 mmol/L [facility] ([facility]) Potassium, pl 3.9 3.3 - 4.9 mmol/L [facility] (JAMES) Chloride 102 97 - 110 mmol/L [facility] (JAMES) CO2 28 22 - 32 mmol/L [facility] (JAMES) Anion gap 12 2 - 15 mmol/L [facility] ([facility] BUN 13 6 [...] 9.4 8.5 - 10.3 mg/dL VIKKI MERCADO (SLATEDALE) Blood 07/21/2025 5:45 AM CDT 07/21/2025 5:48 AM CDT Nova Michael MD LAB BLOOD ORDERABLES Yolanda l Result VIKKI MERCADO (SLATEDALE) 1 [facility] [place] [address] * POCT glucose (07/21/2025 2:27 AM CDT) Glucose, POC 97 70 - 199 mg/dL Blood 07/21/2025 2:27 AM CDT 07/21/2025 2:27 AM CDT Nova Michael MD LAB POCT ORDERABLES - DEV ICE Final Result Performing Organization Address [facility] Co de Phone Number VIKKI MERCADO (SLATEDALE) 1 [facility] [place] [address] * POCT glucose (07/20/2025 9:29 PM CDT) Glucose, POC 111 70 - 199 mg/dL Blood 07/20/2025 9:29 PM CDT 07/20/2025 9:29 PM CDT Nova Michael MD LAB POCT ORDERABLES - DEV ICE Final Result Performing Organization Address [facility] Co de Phone Number VIKKI MERCADO (SLATEDALE) 1 [facility] [place] [address] * POCT glucose (07/20/2025 7:19 PM CDT) Glucose, POC 85 70 - 199 mg/dL Blood 07/20/2025 7:19 PM CDT 07/20/2025 7:19 PM CDT Nova Michael MD LAB POCT ORDERABLES - DEV ICE Final Result VIKKI DiggsSLATEDALE) 1 [facility] [place] [address] * POCT glucose (07/20/2025 4:38 PM CDT) Glucose, POC 122 70 - 199 mg/dL Blood 07/20/2025 4:38 PM CDT 07/20/2025 4:38 PM CDT Nova Michael MD LAB POCT ORDERABLES - DEV ICE Final Result Performing Organization Address [facility] Co de Phone Number VIKKI DiggsSLATEDALE) 1 [facility] [place] [address] * eGFR (07/20/2025 3:03 PM CDT) eGFR [...] LAB BLOOD ORDERABLES Yolanda l Result VIKKI MERACDO (SLATEDALE) 1 [facility] [place] [address] * Protime-INR (07/20/2025 3:03 PM CDT) PT 11.6 10.2 - 13.5 sec VIKKI [facility] (SLATEDALE) INR 1.03 0.90 - 1.20 VIKKI [facility] (SLATEDALE) Comment: Interpretive data Oral anticoagulant therapeutic ranges: Venous thromboembolism prophylaxis or treatment: 2.0-3.0 CARDIOLOGY Standard range: 2.0-3.0 High-intensity range: 2.5-3.5 Refer to indication-specific guidelines for appropriate target ranges for prosthetic heart valve replacement. Current interpretive data was last revised on 2019. Blood 07/20/2025 3:03 PM CDT 07/20/2025 3:07 PM CDT Narrative [facility] (SLATEDALE) - 07/20/2025 3:39 PM CDT Baseline prior to apixaban initiation. us Nova Michael MD LAB BLOOD ORDERABLES Yolanda l Result Performing Organization Address City/[facility]/ZIP Co de Phone Number VIKKI MERCADO (SLATEDALE) 1 [facility] [employer] [place] [address] * (ABNORMAL) CBC without differential (07/20/2025 3:03 PM CDT) WBC 14.10(H) 3.80 - 9.90 K/cumm Hgb 9.4(L) 11.9 - 15.5 g/dL VIKKI [facility] (JAMES) Hct 30.5(L) 35.6 - 45.5 % [facility] [place] (SLATEDALE) Plt 517(H) 150 - 400 K/cumm [facility] (SLATEDALE) MPV 9.1 9.1 - 12.3 fL CERNER [...] ORDERABLES Yolanda l Result Performing Organization Address [facility]/ZIP Co de Phone Number VIKKI MERCADO (JAMES) 1 [facility] [email or web address] [address] * (ABNORMAL) Creatinine (07/20/2025 3:03 PM CDT) Creatinine 0.48(L) 0.60 - 1.10 mg/dL VIKKI [facility] (JAMES) Blood 07/20/2025 3:03 PM CDT 07/20/2025 3:07 PM CDT Narrative [facility]I [facility] (JAMES) - 07/20/2025 3:27 PM CDT Baseline prior to apixaban initiation. Nova Michael MD LAB BLOOD ORDERABLES Yolanda l Result VIKKI MERCADO (JAMES) 1 [facility] [place] [address] * (ABNORMAL) Hepatic function panel (07/20/2025 3:03 PM CDT) Bilirubin, total 0.2 0.1 - 1.2 mg/dL [facility] (JAMES) Bilirubin, direct 0.1 0.1 - 0.3 mg/dL [facility] (JAMES) Protein, pl 6.6 6.5 - 8.5 g/dL [facility] (JAMES) Albumin 3.2(L) 3.5 - 5.0 g/dL [facility] (JAMES) Alk phos 101 40 - 130 Units/L [facility] (JAMES) ALT 43 7 - 45 Units/L [facility] (JAMES) AST 21 10 - 45 Units/L [facility] (JAMES) Blood 07/20/2025 3:03 PM CDT 07/20/2025 3:07 PM CDT Narrative [facility] (SLATEDALE) - 07/20/2025 3:27 PM CDT Baseline prior to apixaban initiation. Nova Michael MD LAB BLOOD ORDERABLES Yolanda l Result [facility] (SLATEDALE) 1 [facility] [email or web address] [address] * POCT glucose (07/20/2025 11:33 AM CDT) Glucose, POC 172 70 - 199 mg/dL Blood 07/20/2025 11:3 3 AM CDT 07/20/2025 11:33 AM CDT Nova Michael MD LAB POCT ORDERABLES - DEV ICE Final Result VIKKI [facility] (SLATEDALE) 1 [facility] [email or web address] [address] * Vancomycin level trough (07/20/2025 10:14 AM CDT) Vancomycin trough 10.0 10.0 - 20.0 mcg/mL VIKKI MERCADO (JAMES) Blood 07/20/2025 10:1 4 AM CDT 07/20/2025 10:19 AM CDT Narrative VIKKI CASTELLON) - 07/20/2025 10:47 AM CDT Line bag and called to [facility]. 07/20/2025 08:52:38 CDT [id number] Nova Michael MD LAB BLOOD ORDERABLES Yolanda l Result VIKKI MERCADO (JAMES) 1 [facility] [employer] [place] [address] * POCT glucose (07/20/2025 7:46 AM CDT) Glucose, POC 181 70 - 199 mg/dL Blood 07/20/2025 7:46 AM CDT 07/20/2025 7:46 AM CDT us Nova Michael MD LAB POCT ORDERABLES - DEV ICE Final Result Performing Organization Address [facility]/ZIP Co de Phone Number VIKKI MERCADO (SLATEDALE) 1 [facility] [place] [address] * eGFR (07/20/2025 6:05 AM CDT) eGFR [...] BLOOD ORDERABLES Yolanda l Result VIKKI MERCADO (SLATEDALE) 1 [facility] [employer] [place] [address] * (ABNORMAL) Creatinine (07/20/2025 6:05 AM CDT) Creatinine 0.45(L) 0.60 - 1.10 mg/dL [facility] (SLATEDALE) Blood 07/20/2025 6:05 AM CDT 07/20/2025 6:28 AM CDT Nova Michael MD LAB BLOOD ORDERABLES Yolanda l Result Performing Organization Address [facility] Co de Phone Number VIKKI MERCADO (SLATEDALE) [address] [place] [address] [facility] [employer] [place] [address] * POCT glucose (07/20/2025 1:37 AM CDT) Glucose, POC 182 70 - 199 mg/dL Blood 07/20/2025 1:37 AM CDT 07/20/2025 1:37 AM CDT Nova Michael MD LAB POCT ORDERABLES - DEV ICE Final Result Performing Organization Address [facility] Co de Phone Number VIKKI MERCADO (SLATEDALE) 1 [facility] [employer] [place] [address] * POCT glucose (07/19/2025 8:54 PM CDT) Glucose, POC 125 70 - 199 mg/dL Blood 07/19/2025 8:54 PM CDT 07/19/2025 8:54 PM CDT Nova Michael MD LAB POCT ORDERABLES - DEV ICE Final Result Performing Organization Address [facility] Co de Phone Number VIKKI MERCADO (SLATEDALE) 1 [facility] [employer] [place] [address] * POCT glucose (07/19/2025 4:43 PM CDT) Glucose, POC 186 70 - 199 mg/dL Blood 07/19/2025 4:43 PM CDT 07/19/2025 4:43 PM CDT Nova Michael MD LAB POCT ORDERABLES - DEV ICE Final Result Performing Organization Address [facility] de Phone Number VIKKI MERCADO (SLATEDALE) 1 [facility] [employer] [place] [address] * (ABNORMAL) POCT glucose (07/19/2025 11:39 AM CDT) Glucose, POC 274(H) 70 - 199 mg/dL Blood 07/19/2025 11:3 9 AM CDT 07/19/2025 11:39 AM CDT Nova Michael MD LAB POCT ORDERABLES - DEV ICE Final Result Performing Organization Address [facility] Co de Phone Number VIKKI MERCADO (SLATEDALE) 1 [facility] [employer] [place] [address] * POCT glucose (07/19/2025 7:56 AM CDT) Glucose, POC 193 70 - 199 mg/dL Blood 07/19/2025 7:56 AM CDT 07/19/2025 7:56 AM CDT us Nova Michael MD LAB POCT ORDERABLES - DEV ICE Final Result Performing Organization Address [facility]/ZIP Co de Phone Number VIKKI MERCADO (SLATEDALE) 1 [facility] [employer] [facility] [employer] [place] [address] * eGFR (07/19/2025 5:15 AM CDT) eGFR [...] ORDERABLES Fi nal Result Performing Organization Address [facility]/ZIP Co de Phone Number VIKKI MERCADO (SLATEDALE) 1 [facility] Department of [facility] [employer] [place] [address] * (ABNORMAL) Differential, auto (07/19/2025 5:15 AM CDT) Neutrophil abs 9.27(H) 1.50 - 6.50 K/cumm Imm gran abs 0.11(H) 0.00 - 0.10 K/cumm VIKKI MERCADO (SLATEDALE) Lymphocyte abs 3.93(H) 0.80 - 3.30 K/cumm [...] Fi nal Result [facility] (JAMES) 1 [facility] [place] [address] * (ABNORMAL) CBC with auto differential (07/19/2025 5:15 AM CDT) [facility] WBC 14.85(H) 3.80 - 9.90 K/cumm [...] ORDERABLES nal Result VIKKI MERCADO (JAMES) 1 [facility] [place] [address] * (ABNORMAL) Comprehensive metabolic panel (07/19/2025 5:15 AM CDT) [facility] Sodium 142 135 - 145 mmol/L [...] Fi nal Result VIKKI [facility] (JAMES) 1 [facility] [place] [address] * POCT glucose (07/19/2025 2:12 AM CDT) Glucose, POC 113 70 - 199 mg/dL Blood 07/19/2025 2:12 AM CDT 07/19/2025 2:12 AM CDT Nova Michael MD LAB POCT ORDERABLES - DEV ICE Final Result Performing Organization Address [facility]/ZIP Co de Phone Number VIKKI MERCADO (SLATEDALE) 1 [facility] [employer] [place] [address] * POCT glucose (07/18/2025 8:54 PM CDT) [facility] Glucose, POC 185 70 - 199 mg/dL Blood 07/18/2025 8:54 PM CDT 07/18/2025 8:54 PM CDT Nova Michael MD LAB POCT ORDERABLES - DEV ICE Final Result Performing Organization Address [facility] Co de Phone Number TITUSJOE MERCADO (SLATEDALE) 1 [place] [address] * (ABNORMAL) POCT glucose (07/18/2025 4:57 PM CDT) [facility] Glucose, POC 214(H) 70 - 199 mg/dL Blood 07/18/2025 4:57 PM CDT 07/18/2025 4:57 PM CDT Nova Michael MD LAB POCT ORDERABLES - DEV ICE Final Result Performing Organization Address [facility] Co de Phone Number VIKKI MERCADO (JAMES) 1 [facility] [employer] [place] [address] * Respiratory pathogen panel Nasopharyngeal (07/18/2025 3:51 PM CDT) [facility] Influenza A RNA Not Detected Not Detected CH Comment:Testing performed by : [facility], [address] [place] [address], [place]., [address] Influenza B RNA Not Detected Not Detected [facility] (JAMES) Comment:Testing performed by : [facility], [address] [place] [address]., [id number] RSV RNA Not Detected Not Detected [facility] (JAMES) Comment:Testing performed by : [facility], [address] [place] [address]., [id number] COVID-19 RNA Not Detected Not Detected [facility] (JAMES) Comment:Testing performed by : [facility], [address] [place] [address]., [id number] Coronavirus 229E RNA Not Detected Not Detected [facility] (JAMES) Comment:Testing performed by : [facility], [address] [place] [address]., [id number] Coronavirus HKU1 RNA Not Detected Not Detected [facility] (JAMES) Comment:Testing performed by : [facility], [address] [place] [address]., [address] Coronavirus NL63 RNA Not Detected Not Detected [facility] (JAMES) Comment:Testing performed by : [facility], [address] [place] [address], [id number] Coronavirus OC43 RNA Not Detected Not Detected [facility] (JAMES) Comment:Testing performed by : [facility], [address] [place] [address]., [id number] Adenovirus DNA Not Detected Not Detected [facility] (JAMES) Comment:Testing performed by : [facility], [address] [place] [address], [address] Metapneumovirus RNA Not Detected Not Detected [facility] (JAMES) Comment:Testing performed by : [facility], [address] [place] [address], [phone] Rhinovirus/Enterov irus RNA Not Detected Not Detected [facility] (JAMES) Comment:Testing performed by : [facility], [address] [place] [address]., [id number] Parainfluenza 1 RNA Not Detected Not Detected [facility] (JAMES) Comment:Testing performed by : [facility], [address] [place] [address], [address] Parainfluenza 2 RNA Not Detected Not Detected [facility] (JAMES) Comment:Testing performed by : [facility], [address] [place] [address], [id number] Parainfluenza 3 RNA Not Detected Not Detected [facility] (JAMES) Comment:Testing performed by : [facility], [address] [place] [address]., [address] Parainfluenza 4 RNA Not Detected Not Detected [facility] (JAMES) Comment:Testing performed by : [facility], [address] [place] [address]., [id number] B. pertussis DNA Not Detected Not Detected [facility] (JAMES) Comment:Testing performed by : [facility], [address] [place] [address]., [id number] B. parapertussis DNA Not Detected Not Detected [facility] (JAMES) Comment:Testing performed by : [facility], [address] [place] [address]., [phone] C. pneumoniae DNA Not Detected Not Detected [facility] (JAMES) Comment:Testing performed by : [facility], [address] [place] [address]., [phone] M. pneumoniae DNA Not Detected Not Detected [facility] (JAMES) Comment: Interpretive Data The Snapt FilmArray Respiratory Panel (RP2.1) assay is a [...] assay has FDA clearance for testing of APPLIANCE INSTALLER swabs. The performance characteristics of this assay have been determined by [facility]. Current interpretive data was last revised on 2021. Testing performed by: [facility], [address] [place] [address]., [id number] Nasopharyngeal 07/18/2025 3: 51 PM CDT 07/18/2025 5:23 PM CDT Narrative VIKKI MERCADO (SLATEDALE) - 07/18/2025 7:00 PM CDT Is the Patient experiencing symptoms consistent with COVID?->Unknown Surveillance testing for transplant patient?->No Nova Michael MD LAB MICROBIOLOGY - GENERA L ORDERABLES Final Result VIKKI ROGELIO (SLATEDALE) 1 [facility] [place] [address] CH * XR CHEST 1 VIEW PORTABLE [...] by Helen Mccullough M.D. SN: Report ID: [id number] Reading Location: [id number] Procedure Note Helen Mccullough MD - 07/18/2025 [...] by Helen Mccullough M.D. SN: Report ID: [id number] Reading Location: [id number] Nova Michael MD IMG XR PROCEDURES Final R esult * (ABNORMAL) POCT glucose (07/18/2025 12:09 PM CDT) Glucose, POC 257(H) 70 - 199 mg/dL Blood 07/18/2025 12:0 9 PM CDT 07/18/2025 12:09 PM CDT Nova Michael MD LAB POCT ORDERABLES - DEV ICE Final Result [facility] (SLATEDALE) 1 [facility] [place] [address] * (ABNORMAL) POCT glucose (07/18/2025 7:59 AM CDT) Glucose, POC 288(H) 70 - 199 mg/dL Blood 07/18/2025 7:59 AM CDT 07/18/2025 7:59 AM CDT Nova Michael MD LAB POCT ORDERABLES - DEV ICE Final Result Performing Organization Address City/[facility]/ZIP Co de Phone Number VIKKI [facility] (SLATEDALE) 1 [facility] [email or web address] [place] [address] * eGFR (07/18/2025 4:36 AM CDT) eGFR [...] ORDERABLES Fi nal Result Performing Organization Address City/[facility]/ZIP Co de Phone Number VIKKI [facility] (JAMES) 1 [facility] Department of [employer] [facility] [employer] [place] [address] * (ABNORMAL) Differential, auto (07/18/2025 4:36 AM [...] 0.10 K/cumm [facility] (JAMES) Neutrophil pct 72.1 % [facility] [...] BLOOD ORDERABLES Fi nal Result VIKKI MERCADO (SLATEDALE) 1 [facility] [place] [address] * Pro B-type natriuretic peptide (07/18/2025 4:36 AM CDT) NT-proBNP 178 <=300 pg/mL VIKKI MERCADO (SLATEDALE) Comment: Interpretive Comments: A. Dyspnea in Acute [...] Yolanda l Result VIKKI [facility] (JAMES) 1 [facility] [employer] [place] [address] * (ABNORMAL) CBC with auto differential (07/18/2025 [...] Fi nal Result VIKKI MERCADO (JAMES) 1 [facility] [place] [address] * (ABNORMAL) Comprehensive metabolic panel (07/18/2025 4:36 AM CDT) Sodium 140 135 - 145 mmol/L [facility] (JAMES) Potassium, pl 4.0 3.3 - 4.9 mmol/L [facility] (JAMES) Chloride 103 97 - 110 mmol/L [facility] (JAMES) CO2 22 22 - 32 mmol/L [facility] (JAMES) Anion gap 15 2 - 15 mmol/L [facility] (JMAES) BUN 10 6 - 25 mg/dL CERNER [...] BLOOD ORDERABLES Fi nal Result VIKKI MERCADO (SLATEDALE) 1 [facility] [employer] [place] [address] * POCT glucose (07/18/2025 1:59 AM CDT) Glucose, POC 185 70 - 199 mg/dL Comment:Glu2: RN/MD Notified Blood 07/18/2025 1:59 AM CDT 07/18/2025 1:59 AM CDT us Nova Michael MD LAB POCT ORDERABLES - DEV ICE Final Result Performing Organization Address [facility] Co de Phone Number VIKKI MERCADO (SLATEDALE) 1 [facility] [employer] [place] [address] * Vancomycin level trough (07/17/2025 9:06 PM CDT) [facility] Vancomycin trough 17.1 10.0 - 20.0 mcg/mL VIKKI MERCADO (SLATEDALE) Blood 07/17/2025 9:06 PM CDT 07/17/2025 9:11 PM CDT us Sylvia Malone MD LAB BLOOD ORDERABLES Final Resul t Performing Organization Address [facility] Co de Phone Number VIKKI MERCADO (SLATEDALE) 1 [facility] [place] [address] * (ABNORMAL) POCT glucose (07/17/2025 7:39 PM CDT) Glucose, POC 236(H) 70 - 199 mg/dL Blood 07/17/2025 7:39 PM CDT 07/17/2025 7:39 PM CDT us Nova Michael MD LAB POCT ORDERABLES - DEV ICE Final Result Performing Organization Address City/[facility]/ZIP Co de Phone Number VIKKI MERCADO (SLATEDALE) 1 [facility] [place] [address] * (ABNORMAL) POCT glucose (07/17/2025 4:40 PM CDT) Glucose, POC 225(H) 70 - 199 mg/dL Blood 07/17/2025 4:40 PM CDT 07/17/2025 4:40 PM CDT Nova Michael MD LAB POCT ORDERABLES - DEV ICE Final Result Performing Organization Address City/[facility]/ZIP Co de Phone Number VIKKI MERCADO (SLATEDALE) 1 [facility] [employer] [place] [address] * (ABNORMAL) POCT glucose (07/17/2025 11:28 AM CDT) Glucose, POC 337(H) 70 - 199 mg/dL Blood 07/17/2025 11:2 8 AM CDT 07/17/2025 11:28 AM CDT Nova Michael MD LAB POCT ORDERABLES - DEV ICE Final Result Performing Organization Address City/[facility] Co de Phone Number VIKKI MERCADO (SLATEDALE) 1 [facility] [employer] [place] [address] * (ABNORMAL) POCT glucose (07/17/2025 7:38 AM CDT) Glucose, POC 315(H) 70 - 199 mg/dL Blood 07/17/2025 7:38 AM CDT 07/17/2025 7:38 AM CDT Nova Michael MD LAB POCT ORDERABLES - DEV ICE Final Result Performing Organization Address [facility] Co de Phone Number VIKKI MERCADO (SLATEDALE) 1 [facility] [employer] [place] [address] * eGFR (07/17/2025 5:44 AM CDT) eGFR [...] MD LAB BLOOD ORDERABLES Fi nal Result [facility] (SLATEDALE) 1 [facility] [place] [address] * (ABNORMAL) Differential, auto (07/17/2025 5:44 AM CDT) Neutrophil abs 13.40(H) 1.50 - 6.50 K/cumm Imm gran abs 0.07 0.00 - 0.10 K/cumm [facility] (JAMES) Lymphocyte abs 2.19 0.80 - 3.30 K/cumm [facility] (SLATEDALE) Monocyte abs 1.06(H) 0.20 - 0.80 K/cumm [facility] (JAMES) Eosinophil abs 0.30 0.00 - 0.50 K/cumm [facility] (JAMES) Basophil abs 0.07 0.00 - 0.10 K/cumm [facility] (JAMES) Neutrophil pct 78.4 % [facility] (SLATEDALE) Comment: Interpretive Data Percent cell count reference [...] Fi nal Result VIKKI MERCADO (JAMES) 1 [facility] Department of Laboratories [place], [place] [id number] * (ABNORMAL) CBC with auto differential (07/17/2025 [...] ORDERABLES nal Result [facility] (JAMES) 1 [facility] [place] [address] * (ABNORMAL) Comprehensive metabolic panel (07/17/2025 5:44 AM CDT) Sodium 138 135 - 145 mmol/L [facility] (JAMES) Potassium, pl 3.9 3.3 - 4.9 mmol/L [facility] (JAMES) Chloride 103 97 - 110 mmol/L [facility] (JAMES) CO2 20(L) 22 - 32 mmol/L [facility] (JAMES) Anion gap 15 2 - 15 mmol/L [facility] (JAMES) BUN 10 6 - 25 mg/dL [facility] ([facility] Creatinine 0.47(L) 0.60 [...] ORDERABLES Fi nal Result Performing Organization Address [facility]/ZIP Co de Phone Number VIKKI MERCADO (JAMES) 1 [facility] [place] [address] * POCT glucose (07/17/2025 2:06 AM CDT) Glucose, POC 180 70 - 199 mg/dL Blood 07/17/2025 2:06 AM CDT 07/17/2025 2:06 AM CDT us Sylvia Malone MD LAB POCT ORDERABLES - DEVICE Fin al Result VIKKI MERCADO (JAMES) 1 [facility] [employer] [place] [address] * (ABNORMAL) POCT glucose (07/16/2025 8:50 PM CDT) Glucose, POC 253(H) 70 - 199 mg/dL Blood 07/16/2025 8:50 PM CDT 07/16/2025 8:50 PM CDT us Sylvia Malone MD LAB POCT ORDERABLES - DEVICE Fin al Result VIKKI MERACDO (SLATEDALE) 1 [place] [address] * (ABNORMAL) POCT glucose (07/16/2025 4:51 PM CDT) Glucose, POC 217(H) 70 - 199 mg/dL Blood 07/16/2025 4:51 PM CDT 07/16/2025 4:51 PM CDT us Sylvia Malone MD LAB POCT ORDERABLES - DEVICE Fin al Result Performing Organization Address City/[facility]/ZIP Co de Phone Number VIKKI MERCADO (SLATEDALE) 1 [facility] [employer] [place] [address] * (ABNORMAL) POCT glucose (07/16/2025 12:06 PM CDT) Glucose, POC 225(H) 70 - 199 mg/dL Blood 07/16/2025 12:0 6 PM CDT 07/16/2025 12:06 PM CDT us Sylvia Malone MD LAB POCT ORDERABLES - DEVICE Fin al Result VIKKI MERCADO (SLATEDALE) 1 [facility] [employer] [place] [address] * (ABNORMAL) POCT glucose (07/16/2025 7:54 AM CDT) [facility] Glucose, POC 237(H) 70 - 199 mg/dL Blood 07/16/2025 7:54 AM CDT 07/16/2025 7:54 AM CDT us Sylvia Malone MD LAB POCT ORDERABLES - DEVICE Fin al Result Performing Organization Address City/[facility]/ZIP Co de Phone Number VIKKI MERCADO (SLATEDALE) [address] [place] [address] of [facility] [employer] [place] [address] * eGFR (07/16/2025 7:45 AM CDT) [facility] eGFR >90 >=60 mL/min/1. 73 m2 [...] BLOOD ORDERABLES Fi nal Result VIKKI [facility] (SLATEDALE) 1 [facility] Department [place] [address] * (ABNORMAL) Differential, auto (07/16/2025 7:45 AM [...] Fi nal Result VIKKI [facility] (JAMES) 1 [facility] Department [place] [address] * (ABNORMAL) CBC with auto differential (07/16/2025 [...] Fi nal Result VIKKI MERCADO (JAMES) 1 [facility] [place] [address] * (ABNORMAL) Vancomycin level trough (07/16/2025 7:45 AM CDT) Vancomycin trough 9.5(L) 10.0 - 20.0 mcg/mL [facility] (JAMES) Blood 07/16/2025 7:45 AM CDT 07/16/2025 8:12 AM CDT us Miranda Chambers MD LAB BLOOD ORDERABLES Final Result [facility] (JAMES) 1 [facility] Department [place] [address] * (ABNORMAL) Comprehensive metabolic panel (07/16/2025 7:45 [...] (JAMES) AST 15 10 - 45 Units/L [facility] (JAMES) Blood 07/16/2025 7:45 AM CDT 07/16/2025 8:12 AM CDT us Trip Ley MD LAB BLOOD ORDERABLES Fi nal Result VIKKI MERCADO (SLATEDALE) 1 [facility] [place] [address] * (ABNORMAL) POCT glucose (07/16/2025 5:28 AM CDT) Glucose, POC 321(H) 70 - 199 mg/dL Blood 07/16/2025 5:28 AM CDT 07/16/2025 5:28 AM CDT us Sylvia Malone MD LAB POCT ORDERABLES - DEVICE Fin al Result Performing Organization Address [facility]/ZIP Co de Phone Number VIKKI MERCADO (SLATEDALE) 1 [facility] [place] [address] * (ABNORMAL) POCT glucose (07/16/2025 2:18 AM CDT) Glucose, POC 311(H) 70 - 199 mg/dL Blood 07/16/2025 2:18 AM CDT 07/16/2025 2:18 AM CDT Sylvia Malone MD LAB POCT ORDERABLES - DEVICE Fin al Result VIKKI MERCADO (SLATEDALE) 1 [facility] [employer] [place] [address] * (ABNORMAL) POCT glucose (07/15/2025 9:53 PM CDT) Glucose, POC 231(H) 70 - 199 mg/dL Blood 07/15/2025 9:53 PM CDT 07/15/2025 9:53 PM CDT Sylvia Malone MD LAB POCT ORDERABLES - DEVICE Fin al Result Performing Organization Address City/[facility] Co de Phone Number VIKKI [facility] (SLATEDALE) 1 [facility] [employer] [place] [address] * (ABNORMAL) POCT glucose (07/15/2025 4:32 PM CDT) Glucose, POC 248(H) 70 - 199 mg/dL Blood 07/15/2025 4:32 PM CDT 07/15/2025 4:32 PM CDT Sylvia Malone MD LAB POCT ORDERABLES - DEVICE Fin al Result Performing Organization Address [facility] Co de Phone Number VIKKI [facility] (SLATEDALE) [address] [place] [address] [facility] [employer] [place] [address] * (ABNORMAL) POCT glucose (07/15/2025 11:34 AM CDT) Glucose, POC 375(H) 70 - 199 mg/dL Blood 07/15/2025 11:3 4 AM CDT 07/15/2025 11:34 AM CDT Sylvia Malone MD LAB POCT ORDERABLES - DEVICE Fin al Result Performing Organization Address City/[facility] Co de Phone Number VIKKI [facility] (SLATEDALE) 1 [facility] [employer] [place] [address] * (ABNORMAL) POCT glucose (07/15/2025 7:25 AM CDT) Glucose, POC 267(H) 70 - 199 mg/dL Blood 07/15/2025 7:25 AM CDT 07/15/2025 7:25 AM CDT us Sylvia Malone MD LAB POCT ORDERABLES - DEVICE Fin al Result VIKKI MERCADO (SLATEDALE) 1 [facility] [employer] [place] [address] * eGFR (07/15/2025 4:19 AM CDT) eGFR [...] BLOOD ORDERABLES Fi nal Result VIKKI MERCADO (SLATEDALE) 1 [facility] [employer] [place] [address] * (ABNORMAL) Differential, auto (07/15/2025 4:19 AM [...] Fi nal Result VIKKI [facility] (JAMES) 1 [facility] [employer] [place] [address] * (ABNORMAL) CBC with auto differential (07/15/2025 [...] 27.3 27.1 - 33.3 pg [facility] (JAEMS) MCHC 30.7(L) 32.3 - 35.7 g/dL [facility] (JAMES) RDW CV 15.8(H) 11.1 - 14.9 % [facility] (JAMES) RDW SD 50.9(H) 35.7 - 48.1 fL [facility] (JAMES) NRBC abs 0.00 0.00 - 0.01 K/cumm [facility] (JAMES) Blood 07/15/2025 4:19 AM CDT 07/15/2025 5:16 AM CDT us Trip Ley MD LAB BLOOD ORDERABLES Fi nal Result VIKKI MERCADO (JAMES) 1 [facility] [employer] [facility] [employer] [place] [address] * Magnesium (07/15/2025 4:19 AM CDT) Magnesium 1.6 1.4 - 2.5 mg/dL [facility] (JAMES) Blood 07/15/2025 4:19 AM CDT 07/15/2025 5:16 AM CDT Trip Ley MD LAB BLOOD ORDERABLES Fi nal Result VIKKI [facility] (JAMES) 1 [facility] Department [place] [address] * (ABNORMAL) Comprehensive metabolic panel (07/15/2025 4:19 [...] LAB BLOOD ORDERABLES Fi nal Result VIKKI [facility] (JAMES) 1 [facility] [employer] [place] [address] * (ABNORMAL) POCT glucose (07/15/2025 2:34 AM CDT) Glucose, POC 268(H) 70 - 199 mg/dL Blood 07/15/2025 2:34 AM CDT 07/15/2025 2:34 AM CDT us Miranda Chambers MD LAB POCT ORDERABLES - DEVICE Final Result Performing Organization Address [facility] Co de Phone Number VIKKI [facility] (SLATEDALE) 1 [facility] [employer] [place] [address] * (ABNORMAL) Urinalysis reflex to microscopic and culture Urine (07/14/2025 10:44 PM CDT) Color, ur Yellow Yellow Clarity, ur Clear Clear VIKKI A (JAMES) Specific gravity, ur 1.037(H) 1.003 - 1.030 [facility] (JAMES) pH, urine 6.0 CERNER [facility] (JAMES) Comment: Interpretive Data U rine pH is affected by diet, medications, systemic acid-base disturbances, and renal tubular function. pH may affect urinary stone formation. For example, urine pH below 6.0 may help reduce the tendency for calcium phosphate stones and pH greater than 6.0 may reduce the tendency for uric acid stone formation. Source: [facility] [employer] Current Interpretive Data was last revised on [...] RAL ORDERABLES Final Result Performing Organization Address City/[facility]/ZIP Co de Phone Number VIKKI [facility] (JAMES) 1 [facility] [employer] [facility] [place] [employer] [place] [address] * (ABNORMAL) Urinalysis, microscopic only (07/14/2025 10:44 [...] URINE ORDERABLES Final Result Performing Organization Address City/[facility]/ZIP Co de Phone Number VIKKI [facility] (JAMES) 1 [facility] [place] [address] * Urine culture Urine (07/14/2025 10:44 PM CDT) Report Final Report: Less than 100,000 colonies/mL (clinically insignificant growth based on current clinical standards) Comment:Testing performed by : [facility], [address] [place]., [address] Organism (CLINICALLY INSIGNIFICANT GROWTH [facility]ER[facility]E [facility] (JAMES) Urine 07/14/2025 10:4 4 PM CDT 07/15/2025 2:11 AM CDT Narrative CERNER [facility] (JAMES) - 07/16/2025 3:13 AM CDT Urine culture reflexed based upon urinalysis results. Testing performed by [facility] Microbiology Laboratory ([phone]) us Sky Monroe MD LAB MICROBIOLOGY - GENERAL ORDERABLES Final Result Performing Organization Address City/[facility]/ZIP Co de Phone Number VIKKI [facility] (SLATEDALE) 1 [facility] Department of [facility] [facility] [employer] [place] [address] * (ABNORMAL) POCT glucose (07/14/2025 8:00 PM CDT) Glucose, POC 238(H) 70 - 199 mg/dL Blood 07/14/2025 8:00 PM CDT 07/14/2025 8:00 PM CDT Miranda Chambers MD LAB POCT ORDERABLES - DEVICE Final Result VIKKI [facility] (JAMES) 1 [facility] [employer] [place] [address] * POCT glucose (07/14/2025 6:16 PM CDT) Glucose, POC 196 70 - 199 mg/dL Blood 07/14/2025 6:16 PM CDT 07/14/2025 6:16 PM CDT Miranda Chambers MD LAB POCT ORDERABLES - DEVICE Final Result VIKKI [facility] JAMES 1 [facility] [place] [address] * CT Abdomen Pelvis W Contrast (07/14/2025 [...] Zan Julian M.D. KR: KR Report ID: [id number] Reading Location: [id number] Procedure Note Zan Julian MD - 07/14/2025 [...] Zan Julian M.D. KR: IZABELLA Report ID: [id number] Reading Location: [id number] IMG CT PROCEDURES Final Result * XR Chest 1 View (07/14/2025 4:07 PM CDT) Anatomical Region Laterality Modality Body, Chest N/A Computed Radiogr aphy 07/14/2025 4:08 PM CDT Narrative 07/14/2025 4:09 PM CDT EXAM DESCRIPTION: XR CHEST 1 VIEW REASON FOR STUDY: suspected infection bpa Patient to triage via EMS from [facility] with complaint of redness and pain above [...] Evert Manley M.D. MJ: BRAYAN Report ID: [id number] Reading Location: [id number] Procedure Note Evert Manley MD - 07/14/2025 EXAM DESCRIPTION: XR CHEST 1 VIEW REASON FOR STUDY: suspected infection bpa Patient to triage via EMS from [facility] with complaint of redness and pain above [...] Evert Manley M.D. MJ: BRAYAN Report ID: [id number] Reading Location: [place] [address] Sky Monroe MD IMG XR PROCEDURES Final Res ult * Blood culture Blood Peripheral (07/14/2025 2:51 PM CDT) Report Final Report: No growth Comment:Testing performed by : [facility], 1 [facility], [place]., [address] Blood (Peripheral) 07/14/2025 2:51 PM CDT 07/14/2025 [...] performance characteristics have been verified by the [facility] Microbiology Laboratory. For questions about this culture, contact the Microbiology Laboratory at [phone]. Interpretive data was last revised on 24. Ashley SCOTT LAB MICROBIOLOGY - GENERAL [place] Final Result VIKKI MERCADO (SLATEDALE) 1 [facility] Department [place] [address] * Blood culture Blood Peripheral (07/14/2025 2:51 PM CDT) Report Final Report: No growth Comment:Testing performed by : [facility], [address] [facility], [place]., [address] Blood (Peripheral) 07/14/2025 2:51 PM CDT 07/14/2025 6:08 PM CDT Narrative VIKKI MERCADO (SLATEDALE) - 07/19/2025 7:00 AM CDT Draw Blood [...] performance characteristics have been verified by the [facility] Microbiology Laboratory. For questions about this culture, contact the Microbiology Laboratory at [phone]. Interpretive data was last revised on 24. Ashley SCOTT LAB MICROBIOLOGY - GENERAL [place] Final Result VIKKI MERCADO SLATEDALE) 1 [facility] [employer] [place] [address] * Sepsis Lactate w/ Reflex (07/14/2025 2:26 PM CDT) Pathologist [facility] Sepsis Lactate 1.7 0.7 - 2.0 mmol/L Blood 07/14/2025 2:26 PM CDT 07/14/2025 2:30 PM CDT Miranda Chambers MD LAB BLOOD ORDERABLES Final Result VIKKI MERCADO (SLATEDALE) 1 [facility] [place] [address] * eGFR (07/14/2025 2:26 PM CDT) eGFR [...] ORDERABLES Final Result [facility] (JAMES) 1 [facility] [place] [address] * (ABNORMAL) Differential, auto (07/14/2025 2:26 PM [...] ORDERABLES Final Result VIKKI [facility] (JAMES) 1 [facility] [place] [address] * (ABNORMAL) CBC with auto differential (07/14/2025 [...] Chambers MD LAB BLOOD ORDERABLES Final Result [facility] (JAMES) 1 [facility] [place] [address] * (ABNORMAL) Comprehensive metabolic panel (07/14/2025 2:26 [...] Bilirubin, total 0.4 0.1 - 1.2 mg/dL [facility] (JAMES) Protein, pl 7.0 6.5 - 8.5 g/dL [facility] (JAMES) Albumin 3.6 3.5 - 5.0 g/dL [facility] (JMAES) Alk phos 73 40 - 130 Units/L [facility] (JAMES) ALT 18 7 - 45 Units/L [facility] (JAMES) AST 18 10 - 45 Units/L [facility] (JAMES) Blood 07/14/2025 2:26 PM CDT 07/14/2025 2:30 PM CDT us Miranda Chambers MD LAB BLOOD ORDERABLES Final Result Performing Organization Address City/[facility]/ZIP Co de Phone Number VIKKI MERCADO (SLATEDALE) 1 [facility] [place] [address] * Apply dressing Incision Perineum Right Groin (07/03/2025 10:51 AM CDT) Narrative Brandi Stoll RN - 07/03/2025 10:51 AM CDT [...] LAB POCT ORDERABLES - DEVICE Final Result [facility] [place] [address] * POCT glucose (06/22/2025 6:58 AM CDT) Glucose, POC 121 70 - 199 mg/dL Blood 06/22/2025 6:58 AM CDT 06/22/2025 6:58 AM CDT Dari Bojorquez MD LAB POCT ORDERABLES - DEVICE Final Result Performing Organization Address [facility] Co de Phone Number [facility] [employer] [place] [address] * POCT glucose (06/22/2025 2:40 AM CDT) Glucose, POC 81 70 - 199 mg/dL Blood 06/22/2025 2:40 AM CDT 06/22/2025 2:40 AM CDT Dari Bojorquez MD LAB POCT ORDERABLES - DEVICE Final Result Performing Organization Address [facility] Co de Phone Number [facility] [employer] [place] [address] * POCT glucose (06/21/2025 8:16 PM CDT) Glucose, POC 156 70 - 199 mg/dL Blood 06/21/2025 8:16 PM CDT 06/21/2025 8:16 PM CDT Dari Bojorquez MD LAB POCT ORDERABLES - DEVICE Final Result Performing Organization Address [facility] Co de Phone Number [facility] [employer] [place] [address] * POCT glucose (06/21/2025 5:59 PM CDT) Glucose, POC 111 70 - 199 mg/dL Comment:Glu2: RN/ Notified Glucose comment 1 Glu2: RN/ Notified [facility] Blood 06/21/2025 5:59 PM CDT 06/21/2025 5:59 PM CDT us Dari Bojorquez MD LAB POCT ORDERABLES - DEVICE Final Result Performing Organization Address [facility] de Phone Number [facility] [place] [address] * POCT glucose (06/21/2025 11:57 AM CDT) Glucose, POC 134 70 - 199 mg/dL Blood 06/21/2025 11:5 7 AM CDT 06/21/2025 11:57 AM CDT us Dari Bojorquez MD LAB POCT ORDERABLES - DEVICE Final Result Performing Organization Address [facility] de Phone Number [facility] [employer] [place] [address] * POCT glucose (06/21/2025 7:48 AM CDT) Glucose, POC 126 70 - 199 mg/dL Blood 06/21/2025 7:48 AM CDT 06/21/2025 7:48 AM CDT us Dari Bojorquez MD LAB POCT ORDERABLES - DEVICE Final Result Performing Organization Address [facility] de Phone Number [facility] [employer] [place] [address] * POCT glucose (06/21/2025 6:07 AM CDT) Glucose, POC 104 70 - 199 mg/dL Blood 06/21/2025 6:07 AM CDT 06/21/2025 6:07 AM CDT Dari Bojorquez MD LAB POCT ORDERABLES - DEVICE Final Result Performing Organization Address City/[facility] Co de Phone Number [facility] [employer] [place] [address] * POCT glucose (06/21/2025 1:41 AM CDT) Glucose, POC 197 70 - 199 mg/dL Blood 06/21/2025 1:41 AM CDT 06/21/2025 1:41 AM CDT us Dari Bojorquez MD LAB POCT ORDERABLES - DEVICE Final Result Performing Organization Address [facility] [place] [address] * POCT glucose (06/20/2025 9:11 PM CDT) Glucose, POC 130 70 - 199 mg/dL Blood 06/20/2025 9:11 PM CDT 06/20/2025 9:11 PM CDT Dari Bojorquez MD LAB POCT ORDERABLES - DEVICE Final Result Performing Organization Address [facility]/ZIP Co de Phone Number [facility] [employer] [place] [address] * POCT glucose (06/20/2025 5:13 PM CDT) Glucose, POC 99 70 - 199 mg/dL Blood 06/20/2025 5:13 PM CDT 06/20/2025 5:13 PM CDT Dari Bojorquez MD LAB POCT ORDERABLES - DEVICE Final Result Performing Organization Address City/[facility]/ZIP Co de Phone Number [facility] [place] [address] * (ABNORMAL) POCT glucose (06/20/2025 12:25 PM CDT) Glucose, POC 205(H) 70 - 199 mg/dL Blood 06/20/2025 12:2 5 PM CDT 06/20/2025 12:25 PM CDT Dari Bojorquez MD LAB POCT ORDERABLES - DEVICE Final Result Performing Organization Address City/[facility] Co de Phone Number [facility] [place] [address] * POCT glucose (06/20/2025 8:39 AM CDT) Glucose, POC 134 70 - 199 mg/dL Blood 06/20/2025 8:39 AM CDT 06/20/2025 8:39 AM CDT Dari Bojorquez MD LAB POCT ORDERABLES - DEVICE Final Result Performing Organization Address [facility] de Phone Number [facility] [employer] [place] [address] * POCT glucose (06/20/2025 1:46 AM CDT) Glucose, POC 120 70 - 199 mg/dL Blood 06/20/2025 1:46 AM CDT 06/20/2025 1:46 AM CDT Dari Bojorquez MD LAB POCT ORDERABLES - DEVICE Final Result Performing Organization Address [facility] de Phone Number [facility] [place] [address] * Infection Prevention Nikhil auris PCR, surveillance Axilla/Groin (06/20/2025 12:31 AM CDT) Nikhil auris DNA Not Detected Not Detected [facility] Comment: Interpretive Data Testing performed by [facility] Molecular Infectious Disease Laboratory using the Daisy adelso 6800 Nikhil auris assay. This assay detects DNA from Nikhil auris using Real-Time PCR. This assay is laboratory developed and is not cleared by the [place] Food and Drug Administration. The performance characteristics have been verified by the [facility] Molecular Infectious Disease Laboratory. Axilla/Groin 06/20/2025 12:3 1 AM CDT 06/20/2025 12:52 AM CDT Narrative VIKKI [facility] - 06/20/2025 2:26 PM CDT Order placed by [facility] due to ring surveillance. us Instant Order Generic Provider LAB MICROBIOLOGY - GENERAL ORDERABLES Final Result VIKKI [facility] [place] [address] [facility] * eGFR (06/19/2025 10:31 PM CDT) eGFR [...] SCOTT LAB BLOOD ORDERABLES Fin al Result [facility] Department [place] [address] * (ABNORMAL) Manual Differential (06/19/2025 10:31 PM CDT) Differential Manual Cells Counted 119 [facility] Neutrophil abs 5.99 1.50 - 6.50 K/cumm [facility] Lymphocyte abs 4.70(H) 0.80 - 3.30 K/cumm [facility] Monocyte abs 0.58 0.20 - 0.80 K/cumm [facility] Eosinophil abs 0.29 0.00 - 0.50 K/cumm [facility] Basophil abs 0.09 0.00 - 0.10 K/cumm [facility] Neutrophil pct 51.4 % [facility] Comment: Interpretive Data Percent cell count reference ranges are not reported, since discordance with absolute values may lead to misinterpretation of CBC data. Current Interpretive Data was last revised on 2018. Lymphocyte pct 40.3 % [facility] Comment: Interpretive Data Percent cell count reference ranges are not reported, since discordance with absolute values may lead to misinterpretation of CBC data. Current Interpretive Data was last revised on 2018. Monocyte pct 5.0 % [facility] Comment: Interpretive Data Percent cell count reference ranges are not reported, since discordance with absolute values may lead to misinterpretation of CBC data. Current Interpretive Data was last revised on 2018. Eosinophil pct 2.5 % [facility] Comment: Interpretive Data Percent cell count reference ranges are not reported, since discordance with absolute values may lead to misinterpretation of CBC data. Current Interpretive Data was last revised on 2018. Basophil pct 0.8 % [facility] Comment: Interpretive Data Percent cell count reference ranges are not reported, since discordance with absolute values may lead to misinterpretation of CBC data. Current Interpretive Data was last revised on 2018. Blood 06/19/2025 10:3 1 PM CDT 06/19/2025 11:03 PM CDT Kelly SCOTT LAB BLOOD ORDERABLES Fin al Result [facility] Department [place] [address] * (ABNORMAL) CBC without differential (06/19/2025 10:31 PM CDT) WBC 11.66(H) 3.80 - 9.90 K/cumm Hgb 12.3 11.9 - 15.5 g/dL [facility] Hct 38.5 35.6 - 45.5 % [facility] Plt 349 150 - 400 K/cumm [facility] MPV 9.2 9.1 - 12.3 fL [facility] RBC 4.30 3.90 - 5.20 M/cumm [facility] MCV 89.5 81.3 - 96.4 fL [facility] MCH 28.6 27.1 - 33.3 pg [facility] MCHC 31.9(L) 32.3 - 35.7 g/dL [facility] RDW CV 17.6(H) 11.1 - 14.9 % [facility] RDW SD 48.2(H) 35.7 - 48.1 fL [facility] NRBC abs 0.03(H) 0.00 - 0.01 K/cumm [facility] Morphologic Screen Results confirmed by manual morphology review. [facility] Blood 06/19/2025 10:3 1 PM CDT 06/19/2025 11:00 PM CDT Kelly SCOTT LAB BLOOD ORDERABLES Parmjit dianne Result - Final [facility] Department [place] [address] * Prealbumin (06/19/2025 10:31 PM CDT) Prealbumin 28.0 20.0 - 40.0 mg/dL Comment: Repeated and Verified Telephone report made to: Lona Vasquez RN on 06/20/2025 17:40:23 CDT by [facility] . Blood 06/19/2025 10:3 1 PM CDT 06/19/2025 11:00 PM CDT Jovita Mo [employer] LAB BLOOD ORDERABLES Edite d Result - Final Performing Organization Address City/[facility]/ZIP Co de Phone Number [facility] [place] [address] * Phosphorus (06/19/2025 10:31 PM CDT) Pathologist [facility] Phosphorus, pl 4.5 2.3 - 4.5 mg/dL Blood 06/19/2025 10:3 1 PM CDT 06/19/2025 11:00 PM CDT Kelly No PA LAB BLOOD ORDERABLES Fin al Result Performing Organization Address [facility] Co de Phone Number [facility] Department [place] [address] * (ABNORMAL) Albumin (06/19/2025 10:31 PM CDT) [facility] Albumin 3.1(L) 3.5 - 5.0 g/dL Blood 06/19/2025 10:3 1 PM CDT 06/19/2025 11:00 PM CDT Jovita Mo APPLIANCE INSTALLER LAB BLOOD ORDERABLES Final Result Performing Organization Address [facility] Co de Phone Number [facility] Department [place] [address] * Basic metabolic panel (06/19/2025 10:31 PM CDT) Sodium 141 135 - 145 mmol/L Potassium, pl 4.5 3.3 - 4.9 mmol/L [facility] Chloride 105 97 - 110 mmol/L [facility] CO2 28 22 - 32 mmol/L [facility] Anion gap 8 2 - 15 mmol/L [facility] BUN 18 6 - 25 mg/dL [facility] Creatinine 0.87 0.60 - 1.10 mg/dL [facility] Glucose 118 70 - 199 mg/dL [facility] Comment: Interpretive Data Fasting glucose >/= 126 [...] 2022. Calcium 8.7 8.5 - 10.3 mg/dL [facility] Blood 06/19/2025 10:3 1 PM CDT 06/19/2025 11:00 PM CDT us Kelly SCOTT LAB BLOOD ORDERABLES Fin al Result Performing Organization Address City/[facility]/ZIP Co de Phone Number [facility] Department of [employer] [facility] [employer] [place] [address] * POCT glucose (06/19/2025 8:13 PM CDT) [facility] Signature Glucose, POC 121 70 - 199 mg/dL Blood 06/19/2025 8:13 PM CDT 06/19/2025 8:13 PM CDT us Dari Bojorquez MD LAB POCT ORDERABLES - DEVICE Final Result Performing Organization Address [facility] Co de Phone Number [facility] Department [place] [address] * POCT glucose (06/19/2025 5:10 PM CDT) Glucose, POC 132 70 - 199 mg/dL Blood 06/19/2025 5:10 PM CDT 06/19/2025 5:10 PM CDT Dari Bojorquez MD LAB POCT ORDERABLES - DEVICE Final Result Performing Organization Address City/[facility]/ZIP Co de Phone Number [facility] [employer] [place] [address] * POCT glucose (06/19/2025 12:10 PM CDT) Glucose, POC 150 70 - 199 mg/dL Blood 06/19/2025 12:1 0 PM CDT 06/19/2025 12:10 PM CDT Dari Bojorquez MD LAB POCT ORDERABLES - DEVICE Final Result Performing Organization Address [facility] Co de Phone Number [facility] [employer] [place] [address] * POCT glucose (06/19/2025 8:54 AM CDT) Glucose, POC 145 70 - 199 mg/dL Blood 06/19/2025 8:54 AM CDT 06/19/2025 8:54 AM CDT Dari Bojorquez MD LAB POCT ORDERABLES - DEVICE Final Result Performing Organization Address [facility] Co de Phone Number [facility] [employer] [place] [address] * POCT glucose (06/19/2025 12:47 AM CDT) Glucose, POC 104 70 - 199 mg/dL Blood 06/19/2025 12:4 7 AM CDT 06/19/2025 12:47 AM CDT us Dari Bojorquez MD LAB POCT ORDERABLES - DEVICE Final Result Performing Organization Address [facility] Co de Phone Number [facility] Department [place] [address] * eGFR (06/18/2025 9:47 PM CDT) eGFR [...] ORDERABLES Fin al Result Performing Organization Address City/[facility]/ZIP Co de Phone Number [facility] Department [place] [address] * (ABNORMAL) CBC without differential (06/18/2025 9:47 PM CDT) WBC 16.03(H) 3.80 - 9.90 K/cumm Hgb 9.4(L) 11.9 - 15.5 g/dL [facility] Hct 29.4(L) 35.6 - 45.5 % [facility] Plt 725(H) 150 - 400 K/cumm [facility] MPV 9.0(L) 9.1 - 12.3 fL [facility] RBC 3.29(L) 3.90 - 5.20 M/cumm [facility] MCV 89.4 81.3 - 96.4 fL [facility] MCH 28.6 27.1 - 33.3 pg [facility] MCHC 32.0(L) 32.3 - 35.7 g/dL [facility] RDW CV 17.0(H) 11.1 - 14.9 % [facility] RDW SD 46.6 35.7 - 48.1 fL [facility] NRBC abs 0.14(H) 0.00 - 0.01 K/cumm [facility] Blood 06/18/2025 9:47 PM CDT 06/18/2025 10:04 PM CDT Kelly SCOTT LAB BLOOD ORDERABLES Fin al Result [facility] [employer] [place] [address] * Phosphorus (06/18/2025 9:47 PM CDT) Pathologist [facility] Phosphorus, pl 4.4 2.3 - 4.5 mg/dL Blood 06/18/2025 9:47 PM CDT 06/18/2025 10:06 PM CDT Kelly SCOTT LAB BLOOD ORDERABLES Fin al Result [facility] [employer] [place] [address] * Basic metabolic panel (06/18/2025 9:47 PM CDT) Sodium 141 135 - 145 mmol/L Potassium, pl 4.9 3.3 - 4.9 mmol/L [facility] Chloride 104 97 - 110 mmol/L [facility] CO2 26 22 - 32 mmol/L [facility] Anion gap 11 2 - 15 mmol/L [facility] BUN 19 6 - 25 mg/dL [facility] Creatinine 0.60 0.60 - 1.10 mg/dL [facility] Glucose 94 70 - 199 mg/dL [facility] Comment: Interpretive Data Fasting glucose >/= 126 [...] 2022. Calcium 8.9 8.5 - 10.3 mg/dL [facility] Blood 06/18/2025 9:47 PM CDT 06/18/2025 10:06 PM CDT us Kelly SCOTT LAB BLOOD ORDERABLES Fin al Result Performing Organization Address City/[facility]/ZIP Co de Phone Number [facility] Department of [employer] [facility] [employer] [place] [address] * POCT glucose (06/18/2025 7:50 PM CDT) [facility] Signature Glucose, POC 172 70 - 199 mg/dL Blood 06/18/2025 7:50 PM CDT 06/18/2025 7:50 PM CDT us Dari Bojorquez MD LAB POCT ORDERABLES - DEVICE Final Result Performing Organization Address [facility] Co de Phone Number [facility] Department [place] [address] * POCT glucose (06/18/2025 4:44 PM CDT) Glucose, POC 186 70 - 199 mg/dL Blood 06/18/2025 4:44 PM CDT 06/18/2025 4:44 PM CDT Dari Bojorquez MD LAB POCT ORDERABLES - DEVICE Final Result Performing Organization Address City/[facility] Co de Phone Number [facility] [employer] [place] [address] * POCT glucose (06/18/2025 11:44 AM CDT) Glucose, POC 145 70 - 199 mg/dL Blood 06/18/2025 11:4 4 AM CDT 06/18/2025 11:44 AM CDT Dari Bojorquez MD LAB POCT ORDERABLES - DEVICE Final Result Performing Organization Address [facility] Co de Phone Number [facility] [facility] [employer] [place] [address] * POCT glucose (06/18/2025 8:00 AM CDT) Glucose, POC 136 70 - 199 mg/dL Blood 06/18/2025 8:00 AM CDT 06/18/2025 8:00 AM CDT Dari Bojorquez MD LAB POCT ORDERABLES - DEVICE Final Result Performing Organization Address [facility] Co de Phone Number [facility] [facility] [employer] [place] [address] * POCT glucose (06/18/2025 2:19 AM CDT) Glucose, POC 93 70 - 199 mg/dL Blood 06/18/2025 2:19 AM CDT 06/18/2025 2:19 AM CDT Dari Bojorquez MD LAB POCT ORDERABLES - DEVICE Final Result Performing Organization Address City/State/[facility] Co de Phone Number [id number] [place] [address] * POCT glucose (06/17/2025 8:06 PM CDT) Glucose, POC 196 70 - 199 mg/dL Blood 06/17/2025 8:06 PM CDT 06/17/2025 8:06 PM CDT Dari Bojorquez MD LAB POCT ORDERABLES - DEVICE Final Result Performing Organization Address [facility] de Phone Number [facility] [place] [address] * eGFR (06/17/2025 7:36 PM CDT) eGFR [...] ORDERABLES Fin al Result Performing Organization Address [facility] Co de Phone Number [facility] Department [place] [address] * (ABNORMAL) CBC without differential (06/17/2025 7:36 PM CDT) WBC 17.70(H) 3.80 - 9.90 K/cumm Hgb 9.0(L) 11.9 - 15.5 g/dL [facility] Hct 28.8(L) 35.6 - 45.5 % [facility] Plt 752(H) 150 - 400 K/cumm [facility] MPV 9.1 9.1 - 12.3 fL [facility] RBC 3.18(L) 3.90 - 5.20 M/cumm [facility] MCV 90.6 81.3 - 96.4 fL [facility] MCH 28.3 27.1 - 33.3 pg [facility] MCHC 31.3(L) 32.3 - 35.7 g/dL [facility] RDW CV 16.2(H) 11.1 - 14.9 % [facility] RDW SD 46.5 35.7 - 48.1 fL [facility] NRBC abs 0.10(H) 0.00 - 0.01 K/cumm [facility] Blood 06/17/2025 7:36 PM CDT 06/17/2025 9:28 PM CDT Kelly SCOTT LAB BLOOD ORDERABLES Fin al Result Performing Organization Address [facility] Co de Phone Number [facility] Department [place] [address] * Phosphorus (06/17/2025 7:36 PM CDT) Pathologist [facility] Phosphorus, pl 4.5 2.3 - 4.5 mg/dL Blood 06/17/2025 7:36 PM CDT 06/17/2025 9:27 PM CDT Kelly SCOTT LAB BLOOD ORDERABLES Fin al Result Performing Organization Address [facility] de Phone Number [facility] [place] [address] * Magnesium (06/17/2025 7:36 PM CDT) Pathologist [facility] Magnesium 1.6 1.4 - 2.5 mg/dL Blood 06/17/2025 7:36 PM CDT 06/17/2025 9:27 PM CDT Kelly SCOTT LAB BLOOD ORDERABLES Fin al Result Performing Organization Address [facility] de Phone Number [facility] Department [place] [address] * Basic metabolic panel (06/17/2025 7:36 PM CDT) Pathologist [facility] Sodium 140 135 - 145 mmol/L Potassium, pl 4.5 3.3 - 4.9 mmol/L [facility] Chloride 102 97 - 110 mmol/L [facility] CO2 26 22 - 32 mmol/L [facility] Anion gap 12 2 - 15 mmol/L [facility] BUN 18 6 - 25 mg/dL [facility] Creatinine 0.65 0.60 - 1.10 mg/dL [facility] Glucose 158 70 - 199 mg/dL [facility] Comment: Interpretive Data Fasting glucose >/= 126 [...] 2022. Calcium 8.9 8.5 - 10.3 mg/dL [facility] Blood 06/17/2025 7:36 PM CDT 06/17/2025 9:27 PM CDT Kelly SCOTT LAB BLOOD ORDERABLES Fin al Result Performing Organization Address City/[facility]/ZIP Co de Phone Number [facility] [employer] [place] [address] * POCT glucose (06/17/2025 6:23 PM CDT) Glucose, POC 115 70 - 199 mg/dL Blood 06/17/2025 6:23 PM CDT 06/17/2025 6:23 PM CDT us Dari Bojorquez MD LAB POCT ORDERABLES - DEVICE Final Result Performing Organization Address [facility] Co de Phone Number [facility] [employer] [place] [address] * POCT glucose (06/17/2025 12:51 PM CDT) Glucose, POC 158 70 - 199 mg/dL Blood 06/17/2025 12:5 1 PM CDT 06/17/2025 12:51 PM CDT us Dari Bojorquez MD LAB POCT ORDERABLES - DEVICE Final Result Performing Organization Address City/[facility] Co de Phone Number [facility] [facility] [employer] [place] [address] * POCT glucose (06/17/2025 9:39 AM CDT) Glucose, POC 156 70 - 199 mg/dL Blood 06/17/2025 9:39 AM CDT 06/17/2025 9:39 AM CDT Dari Bojorquez MD LAB POCT ORDERABLES - DEVICE Final Result Performing Organization Address [facility] Co de Phone Number [id number] [place] [address] * POCT glucose (06/17/2025 1:54 AM CDT) Glucose, POC 100 70 - 199 mg/dL Blood 06/17/2025 1:54 AM CDT 06/17/2025 1:54 AM CDT Dari Bojorquez MD LAB POCT ORDERABLES - DEVICE Final Result Performing Organization Address [facility] Co de Phone Number [facility] [place] [address] * eGFR (06/16/2025 10:31 PM CDT) eGFR [...] ORDERABLES Fin al Result Performing Organization Address [facility] Co de Phone Number [facility] Department [place] [address] * (ABNORMAL) CBC without differential (06/16/2025 10:31 PM CDT) WBC 19.73(H) 3.80 - 9.90 K/cumm Hgb 8.8(L) 11.9 - 15.5 g/dL [facility] Hct 27.6(L) 35.6 - 45.5 % [facility] Plt 783(H) 150 - 400 K/cumm [facility] MPV 9.3 9.1 - 12.3 fL [facility] RBC 3.09(L) 3.90 - 5.20 M/cumm [facility] MCV 89.3 81.3 - 96.4 fL [facility] MCH 28.5 27.1 - 33.3 pg [facility] MCHC 31.9(L) 32.3 - 35.7 g/dL [facility] RDW CV 15.9(H) 11.1 - 14.9 % [facility] RDW SD 46.9 35.7 - 48.1 fL [facility] NRBC abs 0.07(H) 0.00 - 0.01 K/cumm [facility] Blood 06/16/2025 10:3 1 PM CDT 06/16/2025 11:30 PM CDT Kelly SCOTT LAB BLOOD ORDERABLES Ramiro al Result Performing Organization Address [facility] Co de Phone Number [facility] Department [place] [address] * Phosphorus (06/16/2025 10:31 PM CDT) Phosphorus, pl 4.4 2.3 - 4.5 mg/dL Blood 06/16/2025 10:3 1 PM CDT 06/16/2025 11:28 PM CDT [facility] [place] LAB BLOOD ORDERABLES Fin al Result Performing Organization Address [facility] Co de Phone Number [facility] [place] [address] * Magnesium (06/16/2025 10:31 PM CDT) Pathologist [facility] Magnesium 1.7 1.4 - 2.5 mg/dL Blood 06/16/2025 10:3 1 PM CDT 06/16/2025 11:28 PM CDT [facility] No [place] LAB BLOOD ORDERABLES Fin al Result Performing Organization Address [facility] de Phone Number [facility] [place] [address] * Basic metabolic panel (06/16/2025 10:31 PM CDT) Pathologist [facility] Sodium 140 135 - 145 mmol/L Potassium, pl 4.6 3.3 - 4.9 mmol/L [facility] Chloride 104 97 - 110 mmol/L [facility] CO2 25 22 - 32 mmol/L [facility] Anion gap 11 2 - 15 mmol/L [facility] BUN 16 6 - 25 mg/dL [facility] Creatinine 0.69 0.60 - 1.10 mg/dL [facility] Glucose 111 70 - 199 mg/dL [facility] Comment: Interpretive Data Fasting glucose >/= 126 [...] 2022. Calcium 9.2 8.5 - 10.3 mg/dL [facility] Blood 06/16/2025 10:3 1 PM CDT 06/16/2025 11:28 PM CDT Kelly SCOTT LAB BLOOD ORDERABLES Fin al Result Performing Organization Address [facility] Co de Phone Number [facility] [employer] [place] [address] * POCT glucose (06/16/2025 9:01 PM CDT) Glucose, POC 133 70 - 199 mg/dL Blood 06/16/2025 9:01 PM CDT 06/16/2025 9:01 PM CDT us Dari Bojorquez MD LAB POCT ORDERABLES - DEVICE Final Result Performing Organization Address [facility] de Phone Number [facility] [employer] [place] [address] * POCT glucose (06/16/2025 3:57 PM CDT) Glucose, POC 172 70 - 199 mg/dL Blood 06/16/2025 3:57 PM CDT 06/16/2025 3:57 PM CDT Dari Bojorquez MD LAB POCT ORDERABLES - DEVICE Final Result Performing Organization Address [facility] de Phone Number [facility] [employer] [place] [address] * POCT glucose (06/16/2025 11:45 AM CDT) Glucose, POC 137 70 - 199 mg/dL Blood 06/16/2025 11:4 5 AM CDT 06/16/2025 11:45 AM CDT Dari Bojorquez MD LAB POCT ORDERABLES - DEVICE Final Result Performing Organization Address [facility] Co [facility] [place] [address] * POCT glucose (06/16/2025 7:51 AM CDT) Glucose, POC 176 70 - 199 mg/dL Blood 06/16/2025 7:51 AM CDT 06/16/2025 7:51 AM CDT Dari Bojorquez MD LAB POCT ORDERABLES - DEVICE Final Result Performing Organization Address [facility] de Phone Number [facility] Department [place] [address] * eGFR (06/15/2025 9:56 PM CDT) eGFR [...] ORDERABLES Fin al Result Performing Organization Address [facility] de Phone Number [facility] Department [place] [address] * (ABNORMAL) CBC without differential (06/15/2025 9:56 PM CDT) Pathologist [facility] WBC 18.70(H) 3.80 - 9.90 K/cumm Hgb 8.8(L) 11.9 - 15.5 g/dL [facility] Hct 27.2(L) 35.6 - 45.5 % [facility] Plt 736(H) 150 - 400 K/cumm [facility] MPV 8.9(L) 9.1 - 12.3 fL [facility] RBC 3.10(L) 3.90 - 5.20 M/cumm [facility] MCV 87.7 81.3 - 96.4 fL [facility] MCH 28.4 27.1 - 33.3 pg [facility] MCHC 32.4 32.3 - 35.7 g/dL [facility] RDW CV 15.3(H) 11.1 - 14.9 % [facility] RDW SD 44.8 35.7 - 48.1 fL [facility] NRBC abs 0.04(H) 0.00 - 0.01 K/cumm [facility] Blood 06/15/2025 9:56 PM CDT 06/15/2025 10:36 PM CDT Kelly SCOTT LAB BLOOD ORDERABLES Fin al Result Performing Organization Address [facility]/ZIP Co de Phone Number [facility] Department [place] [address] * Phosphorus (06/15/2025 9:56 PM CDT) Pathologist [facility] Phosphorus, pl 3.2 2.3 - 4.5 mg/dL Blood 06/15/2025 9:56 PM CDT 06/15/2025 10:35 PM CDT Kelly SCOTT LAB BLOOD ORDERABLES Fin al Result Performing Organization Address [facility] de Phone Number [facility] [place] [address] * Magnesium (06/15/2025 9:56 PM CDT) Pathologist [facility] Magnesium 1.7 1.4 - 2.5 mg/dL Blood 06/15/2025 9:56 PM CDT 06/15/2025 10:35 PM CDT Kelly SCOTT LAB BLOOD ORDERABLES Fin al Result Performing Organization Address [facility] de Phone Number [facility] [employer] [place] [address] * Basic metabolic panel (06/15/2025 9:56 PM CDT) Pathologist [facility] Sodium 142 135 - 145 mmol/L Comment:Repeated and Verifie d Potassium, pl 4.3 3.3 - 4.9 mmol/L [facility] Chloride 106 97 - 110 mmol/L [facility] Comment:Repeated and Verifie d CO2 28 22 - 32 mmol/L [facility] Anion gap 8 2 - 15 mmol/L [facility] Comment:Reviewed BUN 14 6 - 25 mg/dL [facility] Creatinine 0.64 0.60 - 1.10 mg/dL [facility] Glucose 153 70 - 199 mg/dL [facility] Comment: Interpretive Data Fasting glucose >/= 126 [...] 2022. Calcium 9.2 8.5 - 10.3 mg/dL [facility] Blood 06/15/2025 9:56 PM CDT 06/15/2025 10:35 PM CDT Kelly SCOTT LAB BLOOD ORDERABLES Fin al Result Performing Organization Address [facility] Co de Phone Number [facility] [employer] [place] [address] * (ABNORMAL) POCT glucose (06/15/2025 8:05 PM CDT) Glucose, POC 227(H) 70 - 199 mg/dL Blood 06/15/2025 8:05 PM CDT 06/15/2025 8:05 PM CDT Dari Bojorquez MD LAB POCT ORDERABLES - DEVICE Final Result Performing Organization Address [facility] Co de Phone Number [facility] [place] [address] * POCT glucose (06/15/2025 5:35 PM CDT) Glucose, POC 197 70 - 199 mg/dL Comment:Glu2: RN/MD Notified Glucose comment 1 Glu2: RN/MD Notified [facility] Blood 06/15/2025 5:35 PM CDT 06/15/2025 5:35 PM CDT Dari Bojorquez MD LAB POCT ORDERABLES - DEVICE Final Result Performing Organization Address City/[facility]/ZIP Co de Phone Number [facility] [employer] [place] [address] * COVID-19 Coronavirus RNA Nasopharyngeal (06/15/2025 12:21 PM CDT) Pathologist [facility] COVID-19 RNA Negative Negative [facility] Nasopharyngeal 06/15/2025 12 :21 PM CDT 06/15/2025 12:50 PM CDT Ariadna FLOREZ [facility] - 06/15/2025 1:25 PM CDT Is the patient experiencing any symptoms consistent with COVID (eg. Fever, cough, shortness of breath)?->No What is the reason for testing?->Screening for post-acute care placement Interpretive data Testing performed by [facility] ([phone]). This test is performed using the [employer] Xpert Xpress CoV-2 plus assay. This is a real-time RT-PCR test intended for the qualitative detection of nucleic acid from the SARS-CoV-2. This assay has been cleared by the [place] Food and Drug administration. The performance characteristics have been verified by the [facility]. Results must be considered in the clinical context, and a negative result does not rule out infection. Interpretive data last revised 2024. Interpretive data Testing performed by [facility] ([phone]). This test is performed using the [employer] Xpert Xpress CoV-2 plus assay. This is a real-time RT-PCR test intended for the qualitative detection of nucleic acid from the SARS-CoV-2. This assay has been cleared by the [place] Food and Drug administration. The performance characteristics have been verified by the [facility]. Results must be considered in the clinical context, and a negative result does not rule out infection. Interpretive data last revised 2024. us Yessy Campbell PhD LAB MICROBIOLOGY - GENERAL ORDER RUPERTO Final Result [facility] [place] [address] [facility] * (ABNORMAL) POCT glucose (06/15/2025 12:05 PM CDT) Glucose, POC 215(H) 70 - 199 mg/dL Comment:Glu2: RN/ Notified Glucose comment 1 Glu2: RACHEL/ Notified [facility] Blood 06/15/2025 12:0 5 PM CDT 06/15/2025 12:05 PM CDT Dari Bojorquez MD LAB POCT ORDERABLES - DEVICE Final Result Performing Organization Address [facility] Co de Phone Number [facility] Department [place] [address] * (ABNORMAL) POCT glucose (06/15/2025 7:52 AM CDT) [facility] Glucose, POC 235(H) 70 - 199 mg/dL Comment:Glu2: RACHEL/ Notified Glucose comment 1 Glu2: RACHEL/ Notified [facility] Blood 06/15/2025 7:52 AM CDT 06/15/2025 7:52 AM CDT Dari Bojorquez MD LAB POCT ORDERABLES - DEVICE Final Result Performing Organization Address [facility] de Phone Number [facility] Department [place] [address] * Infection Prevention Nikhil auris PCR, surveillance Axilla/Groin (06/15/2025 3:46 AM CDT) [facility] Nikhil auris DNA Not Detected Not Detected [facility] Comment: Interpretive Data Testing performed by [facility] using the Daisy adelso [id number] Nikhil auris assay. This assay detects DNA from Nikhil auris using Real-Time PCR. This assay is laboratory developed and is not cleared by the [place] Food and Drug Administration. The performance characteristics have been verified by the [facility]. Axilla/Groin 06/15/2025 3:46 AM CDT 06/15/2025 4:17 AM CDT Narrative VIKKI [facility] - 06/15/2025 2:26 PM CDT Order placed by [facility] due to ring surveillance. us Instant Order Generic Provider LAB MICROBIOLOGY - GENERAL ORDERABLES Final Result [facility] Department [place] [address] [facility] * Sodium, whole blood (06/15/2025 3:46 AM CDT) Sodium, Whole Blood 140 135 - 145 mmol/L Blood 06/15/2025 3:46 AM CDT 06/15/2025 3:55 AM CDT us Dari Bojorquez MD LAB BLOOD ORDERABLES Final Result Performing Organization Address City/[facility]/ZIP Co de Phone Number [facility] Department [place] [address] * eGFR (06/14/2025 8:41 PM CDT) eGFR [...] 8:41 PM CDT 06/14/2025 8:56 PM CDT Klely SCOTT LAB BLOOD ORDERABLES Fin al Result Performing Organization Address [facility] Co de Phone Number [facility] Department [place] [address] * (ABNORMAL) CBC without differential (06/14/2025 8:41 PM CDT) Pathologist [facility] [place] WBC 18.53(H) 3.80 - 9.90 K/cumm Hgb 8.4(L) 11.9 - 15.5 g/dL [facility] Hct 26.0(L) 35.6 - 45.5 % [facility] Plt 664(H) 150 - 400 K/cumm [facility] MPV 8.8(L) 9.1 - 12.3 fL [facility] RBC 2.94(L) 3.90 - 5.20 M/cumm [facility] MCV 88.4 81.3 - 96.4 fL [facility] MCH 28.6 27.1 - 33.3 pg [facility] MCHC 32.3 32.3 - 35.7 g/dL [facility] RDW CV 14.8 11.1 - 14.9 % [facility] RDW SD 45.4 35.7 - 48.1 fL [facility] NRBC abs 0.00 0.00 - 0.01 K/cumm [facility] Blood 06/14/2025 8:41 PM CDT 06/14/2025 8:55 PM CDT Kelly SCOTT LAB BLOOD ORDERABLES Fin al Result Performing Organization Address [facility] Co de Phone Number [facility] Department [place] [address] * Phosphorus (06/14/2025 8:41 PM CDT) Pathologist [facility] [place] Phosphorus, pl 2.3 2.3 - 4.5 mg/dL Blood 06/14/2025 8:41 PM CDT 06/14/2025 8:56 PM CDT Kelly SCOTT LAB BLOOD ORDERABLES Fin al Result Performing Organization Address City/[facility]/ZIP Co de Phone Number [facility] Department [place] [address] * Magnesium (06/14/2025 8:41 PM CDT) [facility] Magnesium 1.5 1.4 - 2.5 mg/dL Blood 06/14/2025 8:41 PM CDT 06/14/2025 8:56 PM CDT Kelly SCOTT LAB BLOOD ORDERABLES Fin al Result Performing Organization Address [facility] de Phone Number [facility] Department [place] [address] * (ABNORMAL) Basic metabolic panel (06/14/2025 8:41 PM CDT) [facility] Sodium 150(H) 135 - 145 mmol/L Comment:Repeated and Verifie d Potassium, pl 4.8 3.3 - 4.9 mmol/L [facility] Chloride 115(H) 97 - 110 mmol/L [facility] CO2 25 22 - 32 mmol/L [facility] Anion gap 10 2 - 15 mmol/L [facility] BUN 11 6 - 25 mg/dL [facility] Creatinine 0.56(L) 0.60 - 1.10 mg/dL [facility] Glucose 200(H) 70 - 199 mg/dL [facility] Comment: Interpretive Data Fasting glucose >/= 126 [...] 2022. Calcium 8.5 8.5 - 10.3 mg/dL [facility] Blood 06/14/2025 8:41 PM CDT 06/14/2025 8:56 PM CDT us Kelly SCOTT LAB BLOOD ORDERABLES Fin al Result [facility] [place] [address] * POCT glucose (06/14/2025 7:42 PM CDT) Glucose, POC 188 70 - 199 mg/dL Blood 06/14/2025 7:42 PM CDT 06/14/2025 7:42 PM CDT us Dari Bojorquez MD LAB POCT ORDERABLES - DEVICE Final Result Performing Organization Address City/[facility]/ZIP Co de Phone Number [facility] [place] [address] * POCT glucose (06/14/2025 4:59 PM CDT) Glucose, POC 131 70 - 199 mg/dL Blood 06/14/2025 4:59 PM CDT 06/14/2025 4:59 PM CDT Dari Bojorquez MD LAB POCT ORDERABLES - DEVICE Final Result Performing Organization Address [facility] Co de Phone Number [facility] [place] [address] * (ABNORMAL) POCT glucose (06/14/2025 11:50 AM CDT) Glucose, POC 263(H) 70 - 199 mg/dL Comment:Glu2: RN/ Notified Glucose comment 1 Glu2: RN/ Notified [facility] Blood 06/14/2025 11:5 0 AM CDT 06/14/2025 11:50 AM CDT us Dari Bojorquez MD LAB POCT ORDERABLES - DEVICE Final Result Performing Organization Address [facility] Co de Phone Number [facility] Department [place] [address] * (ABNORMAL) POCT glucose (06/14/2025 7:49 AM CDT) Glucose, POC 220(H) 70 - 199 mg/dL Comment:Glu2: RACHEL/ Notified Glucose comment 1 Glu2: RACHEL/ Notified [facility] Blood 06/14/2025 7:49 AM CDT 06/14/2025 7:49 AM CDT us Dari Bojorquez MD LAB POCT ORDERABLES - DEVICE Final Result Performing Organization Address [facility] de Phone Number [facility] Department [place] [address] * eGFR (06/13/2025 11:24 PM CDT) eGFR [...] ORDERABLES Fin al Result Performing Organization Address [facility]/ZIP Co de Phone Number [facility] Department [place] [address] * (ABNORMAL) CBC without differential (06/13/2025 11:24 PM CDT) WBC 18.95(H) 3.80 - 9.90 K/cumm Hgb 9.3(L) 11.9 - 15.5 g/dL [facility] Hct 28.5(L) 35.6 - 45.5 % [facility] Plt 546(H) 150 - 400 K/cumm [facility] MPV 9.2 9.1 - 12.3 fL [facility] RBC 3.20(L) 3.90 - 5.20 M/cumm [facility] MCV 89.1 81.3 - 96.4 fL [facility] MCH 29.1 27.1 - 33.3 pg [facility] MCHC 32.6 32.3 - 35.7 g/dL [facility] RDW CV 14.7 11.1 - 14.9 % [facility] RDW SD 46.3 35.7 - 48.1 fL [facility] NRBC abs 0.00 0.00 - 0.01 K/cumm [facility] Blood 06/13/2025 11:2 4 PM CDT 06/13/2025 11:43 PM CDT Kelly SCOTT LAB BLOOD ORDERABLES Fin al Result Performing Organization Address [facility]/ZIP Co de Phone Number [facility] Department [place] [address] * Phosphorus (06/13/2025 11:24 PM CDT) [facility] Phosphorus, pl 2.9 2.3 - 4.5 mg/dL Blood 06/13/2025 11:2 4 PM CDT 06/13/2025 11:42 PM CDT Kelly SCOTT LAB BLOOD ORDERABLES Fin al Result Performing Organization Address [facility] [place] [address] * Magnesium (06/13/2025 11:24 PM CDT) [facility] Magnesium 1.8 1.4 - 2.5 mg/dL Blood 06/13/2025 11:2 4 PM CDT 06/13/2025 11:42 PM CDT Kelly SCOTT LAB BLOOD ORDERABLES Fin al Result Performing Organization Address [facility] de Phone Number [facility] [place] [address] * (ABNORMAL) Basic metabolic panel (06/13/2025 11:24 PM CDT) [facility] Sodium 141 135 - 145 mmol/L Potassium, pl 4.3 3.3 - 4.9 mmol/L [facility] Chloride 106 97 - 110 mmol/L [facility] CO2 27 22 - 32 mmol/L [facility] Anion gap 8 2 - 15 mmol/L [facility] BUN 14 6 - 25 mg/dL [facility] Creatinine 0.51(L) 0.60 - 1.10 mg/dL [facility] Glucose 193 70 - 199 mg/dL [facility] Comment: Interpretive Data Fasting glucose >/= 126 [...] 2022. Calcium 8.2(L) 8.5 - 10.3 mg/dL [facility] Blood 06/13/2025 11:2 4 PM CDT 06/13/2025 11:42 PM CDT Kelly SCOTT LAB BLOOD ORDERABLES Fin al Result Performing Organization Address [facility] Co de Phone Number [facility] Department [place] [address] * POCT glucose (06/13/2025 7:58 PM CDT) Glucose, POC 182 70 - 199 mg/dL Blood 06/13/2025 7:58 PM CDT 06/13/2025 7:58 PM CDT Dari Bojorquez MD LAB POCT ORDERABLES - DEVICE Final Result Performing Organization Address [facility] de Phone Number [facility] Department [place] [address] * POCT glucose (06/13/2025 4:03 PM CDT) Glucose, POC 195 70 - 199 mg/dL Blood 06/13/2025 4:03 PM CDT 06/13/2025 4:03 PM CDT Dari Bojorquez MD LAB POCT ORDERABLES - DEVICE Final Result Performing Organization Address [facility]/State/ZIP Co de Phone Number [facility] [place] [address] * (ABNORMAL) POCT glucose (06/13/2025 12:11 PM CDT) Glucose, POC 226(H) 70 - 199 mg/dL Blood 06/13/2025 12:1 1 PM CDT 06/13/2025 12:11 PM CDT us Dari Bojorquez MD LAB POCT ORDERABLES - DEVICE Final Result Performing Organization Address [facility] Co de Phone Number [facility] [place] [address] * ECG 12 lead (06/13/2025 10:56 AM CDT) [facility] Ventricular Rate EKG/Min 63 BPM [facility] Atrial Rate 63 BPM [facility] [place]-Interval (MSEC) 148 ms [facility] QRS-Interval (MSEC) 82 ms [facility] QT-Interval (MSEC) 396 ms [facility] QTc 405 ms [facility] P [place] 20 degrees [facility] R [place] 50 degrees [facility] T [place] 72 degrees [facility] Diagnosis Normal sinus rhythm Low voltage QRS Septal infarct , age undetermined Abnormal ECG No previous ECGs available Confirmed by Peter HEALY, [facility] ([id number] on 06/14/2025 12:48:01 PM [facility] 06/13/2025 10:5 6 AM CDT 06/14/2025 12:48 PM CDT us Jovita Mo APPLIANCE INSTALLER ECG ORDERABLES Final Resu lt [facility] * POCT glucose (06/13/2025 8:01 AM CDT) Glucose, POC 189 70 - 199 mg/dL Blood 06/13/2025 8:01 AM CDT 06/13/2025 8:01 AM CDT Dari Bojorquez MD LAB POCT ORDERABLES - DEVICE Final Result Performing Organization Address [facility] Co de Phone Number [facility] Department [place] [address] * eGFR (06/12/2025 9:05 PM CDT) Pathologist [facility] [place] eGFR >90 >=60 mL/min/1. 73 m2 Comment: [...] ORDERABLES Fin al Result Performing Organization Address [facility]/ZIP Co de Phone Number [facility] Department [place] [address] * (ABNORMAL) CBC without differential (06/12/2025 9:05 PM CDT) Pathologist [facility] [place] WBC 20.49(H) 3.80 - 9.90 K/cumm Hgb 9.2(L) 11.9 - 15.5 g/dL [facility] Hct 29.2(L) 35.6 - 45.5 % [facility] Plt 603(H) 150 - 400 K/cumm [facility] MPV 9.1 9.1 - 12.3 fL [facility] RBC 3.25(L) 3.90 - 5.20 M/cumm [facility] MCV 89.8 81.3 - 96.4 fL [facility] MCH 28.3 27.1 - 33.3 pg [facility] MCHC 31.5(L) 32.3 - 35.7 g/dL [facility] RDW CV 14.7 11.1 - 14.9 % [facility] RDW SD 46.4 35.7 - 48.1 fL [facility] NRBC abs 0.00 0.00 - 0.01 K/cumm [facility] Blood 06/12/2025 9:05 PM CDT 06/12/2025 9:24 PM CDT us Kelly No PA LAB BLOOD ORDERABLES Fin al Result [facility] Department [place] [address] * (ABNORMAL) Prealbumin (06/12/2025 9:05 PM CDT) Prealbumin 18.0(L) 20.0 - 40.0 mg/dL Blood 06/12/2025 9:05 PM CDT 06/12/2025 9:26 PM CDT us Jovita Mo APPLIANCE INSTALLER LAB BLOOD ORDERABLES Final Result [facility] Department [place] [address] * Phosphorus (06/12/2025 9:05 PM CDT) Phosphorus, pl 3.3 2.3 - 4.5 mg/dL Blood 06/12/2025 9:05 PM CDT 06/12/2025 9:21 PM CDT Kelly SCOTT LAB BLOOD ORDERABLES Fin al Result Performing Organization Address [facility] de Phone Number [facility] [place] [address] * Magnesium (06/12/2025 9:05 PM CDT) [facility] Magnesium 1.4 1.4 - 2.5 mg/dL Blood 06/12/2025 9:05 PM CDT 06/12/2025 9:21 PM CDT Kelly SCOTT LAB BLOOD ORDERABLES Fin al Result Performing Organization Address [facility] de Phone Number [facility] [place] [address] * (ABNORMAL) Albumin (06/12/2025 9:05 PM CDT) [facility] Albumin 2.6(L) 3.5 - 5.0 g/dL Blood 06/12/2025 9:05 PM CDT 06/12/2025 9:21 PM CDT Dari Bojorquez MD LAB BLOOD ORDERABLES Final Result Performing Organization Address [facility] [place] [address] * (ABNORMAL) Basic metabolic panel (06/12/2025 9:05 PM CDT) [facility] Sodium 141 135 - 145 mmol/L Potassium, pl 4.3 3.3 - 4.9 mmol/L [facility] Chloride 107 97 - 110 mmol/L [facility] CO2 25 22 - 32 mmol/L [facility] Anion gap 9 2 - 15 mmol/L [facility] BUN 9 6 - 25 mg/dL [facility] Creatinine 0.49(L) 0.60 - 1.10 mg/dL [facility] Glucose 209(H) 70 - 199 mg/dL [facility] Comment: Interpretive Data Fasting glucose >/= 126 [...] 2022. Calcium 8.2(L) 8.5 - 10.3 mg/dL [facility] Blood 06/12/2025 9:05 PM CDT 06/12/2025 9:21 PM CDT us Kelly SCOTT LAB BLOOD ORDERABLES Fin al Result [facility] Department of [facility] [place], [place] [id number] * (ABNORMAL) POCT glucose (06/12/2025 9:01 PM CDT) Glucose, POC 234(H) 70 - 199 mg/dL Blood 06/12/2025 9:01 PM CDT 06/12/2025 9:01 PM CDT Dari Bojorquez MD LAB POCT ORDERABLES - DEVICE Final Result [facility] Department of [facility] [employer] [place] [address] * POCT glucose (06/12/2025 5:22 PM CDT) Glucose, POC 146 70 - 199 mg/dL Blood 06/12/2025 5:22 PM CDT 06/12/2025 5:22 PM CDT us Dari Bojorquez MD LAB POCT ORDERABLES - DEVICE Final Result VIKKI [facility] Department [place] [address] * [place] AN ELECTIVE ENDOTRACHEAL AIRWAY, [place] 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 (06/12/2025 3:36 PM CDT) [...] - DEVICE Final Result Performing Organization Address [facility] Co de Phone Number [facility] [place] [address] * POCT glucose (06/12/2025 1:11 PM CDT) Pathologist [facility] [place] Glucose, POC 180 70 - 199 mg/dL Blood 06/12/2025 1:11 PM CDT 06/12/2025 1:11 PM CDT Dari Bojorquez MD LAB POCT ORDERABLES - DEVICE Final Result Performing Organization Address [facility] [place] [address] * C. difficile testing Stool (06/12/2025 9:46 AM CDT) Pathologist [facility] Result Negative Negative Toxin Result Negative Negative [facility] C. diff result Negative, free toxin Negative, free toxin [facility] C. diff interp Negative for toxigenic Clostridioides (Clostridium) difficile. Analysis was performed using a glutamate dehydrogenase antigen detection assay combined with a C. difficile toxin detection assay. [facility] Stool 06/12/2025 9:46 AM CDT 06/12/2025 11:12 AM CDT Jovita Mo NP LAB MICROBIOLOGY - GENERAL ORDERABLES Final Result Performing Organization Address [facility] [place] [address] * Infection Prevention VRE Culture Stool (06/12/2025 9:46 AM CDT) Pathologist [facility] [place] Report Final Report: Negative Stool 06/12/2025 9:46 AM CDT 06/12/2025 12:21 PM CDT Narrative [facility] 06/14/2025 2:19 PM CDT Surveillance culture for Infection Prevention purposes only; results indicate colonization, not infection requiring treatment. Testing performed by [facility] ([phone]). Jovita Mo NP LAB MICROBIOLOGY - GENERAL ORDERABLES Final Result Performing Organization Address [facility] Co de Phone Number [facility] [place] [address] * POCT glucose (06/12/2025 7:29 AM CDT) Glucose, POC 197 70 - 199 mg/dL Blood 06/12/2025 7:29 AM CDT 06/12/2025 7:29 AM CDT Dari Bojorquez MD LAB POCT ORDERABLES - DEVICE Final Result Performing Organization Address [facility] Co de Phone Number [facility] [place] [address] * POCT glucose (06/12/2025 4:10 AM CDT) Glucose, POC 187 70 - 199 mg/dL Blood 06/12/2025 4:10 AM CDT 06/12/2025 4:10 AM CDT Dari Bojorquez MD LAB POCT ORDERABLES - DEVICE Final Result Performing Organization Address [facility] Co de Phone Number [facility] [place] [address] * POCT glucose (06/12/2025 12:29 AM CDT) Glucose, POC 167 70 - 199 mg/dL Blood 06/12/2025 12:2 9 AM CDT 06/12/2025 12:29 AM CDT us Dari Bojorquez MD LAB POCT ORDERABLES - DEVICE Final Result Performing Organization Address [facility] Co de Phone Number VIKKI [facility] Department [place] [address] * eGFR (06/11/2025 8:41 PM CDT) eGFR [...] ORDERABLES Fin al Result Performing Organization Address City/[facility]/ZIP Co de Phone Number VIKKI [facility] Department [place] [address] * (ABNORMAL) CBC without differential (06/11/2025 8:41 PM CDT) WBC 18.16(H) 3.80 - 9.90 K/cumm Hgb 9.3(L) 11.9 - 15.5 g/dL [facility] Hct 29.1(L) 35.6 - 45.5 % [facility] Plt 553(H) 150 - 400 K/cumm [facility] MPV 9.3 9.1 - 12.3 fL [facility] RBC 3.30(L) 3.90 - 5.20 M/cumm [facility] MCV 88.2 81.3 - 96.4 fL [facility] MCH 28.2 27.1 - 33.3 pg [facility] MCHC 32.0(L) 32.3 - 35.7 g/dL [facility] RDW CV 14.9 11.1 - 14.9 % [facility] RDW SD 47.0 35.7 - 48.1 fL [facility] NRBC abs 0.02(H) 0.00 - 0.01 K/cumm [facility] Blood 06/11/2025 8:41 PM CDT 06/11/2025 9:01 PM CDT Kelly SCOTT LAB BLOOD ORDERABLES Fin al Result Performing Organization Address City/[facility] Co de Phone Number [facility] Department of [facility] [employer] [place] [address] * Phosphorus (06/11/2025 8:41 PM CDT) [facility] Phosphorus, pl 3.2 2.3 - 4.5 mg/dL Blood 06/11/2025 8:41 PM CDT 06/11/2025 9:01 PM CDT Kelly SCOTT LAB BLOOD ORDERABLES Fin al Result [facility] [place] [address] * Magnesium (06/11/2025 8:41 PM CDT) Magnesium 1.5 1.4 - 2.5 mg/dL Blood 06/11/2025 8:41 PM CDT 06/11/2025 9:01 PM CDT Kelly SCOTT LAB BLOOD ORDERABLES Fin al Result Performing Organization Address [facility] Co de Phone Number [facility] [place] [address] * Basic metabolic panel (06/11/2025 8:41 PM CDT) [facility] Sodium 143 135 - 145 mmol/L Potassium, pl 4.2 3.3 - 4.9 mmol/L [facility] Chloride 108 97 - 110 mmol/L [facility] CO2 25 22 - 32 mmol/L [facility] Anion gap 10 2 - 15 mmol/L [facility] BUN 11 6 - 25 mg/dL [facility] Creatinine 0.67 0.60 - 1.10 mg/dL [facility] Glucose 150 70 - 199 mg/dL [facility] Comment: Interpretive Data Fasting glucose >/= 126 [...] 2022. Calcium 8.5 8.5 - 10.3 mg/dL [facility] Blood 06/11/2025 8:41 PM CDT 06/11/2025 9:01 PM CDT Kelly SCOTT LAB BLOOD ORDERABLES Fin al Result Performing Organization Address [facility] Co de Phone Number [facility] [place] [address] * POCT glucose (06/11/2025 7:57 PM CDT) Glucose, POC 174 70 - 199 mg/dL Blood 06/11/2025 7:57 PM CDT 06/11/2025 7:57 PM CDT us Dari Bojorquez MD LAB POCT ORDERABLES - DEVICE Final Result Performing Organization Address [facility] Co de Phone Number [facility] [place] [address] * POCT glucose (06/11/2025 4:59 PM CDT) Glucose, POC 126 70 - 199 mg/dL Blood 06/11/2025 4:59 PM CDT 06/11/2025 4:59 PM CDT us Dari oBjorquez MD LAB POCT ORDERABLES - DEVICE Final Result Performing Organization Address [facility] Co de Phone Number [facility] [place] [address] * POCT glucose (06/11/2025 3:02 PM CDT) Glucose, POC 114 70 - 199 mg/dL Blood 06/11/2025 3:02 PM CDT 06/11/2025 3:02 PM CDT us Dari Bojorquez MD LAB POCT ORDERABLES - DEVICE Final Result Performing Organization Address [facility] Co de Phone Number [facility] [place] [address] * POCT glucose (06/11/2025 2:20 PM CDT) Glucose, POC 124 70 - 199 mg/dL Blood 06/11/2025 2:20 PM CDT 06/11/2025 2:20 PM CDT us Dari Bojorquez MD LAB POCT ORDERABLES - DEVICE Final Result Performing Organization Address [facility] Co de Phone Number [facility] [place] [address] * POCT glucose (06/11/2025 1:05 PM CDT) Glucose, POC 114 70 - 199 mg/dL Blood 06/11/2025 1:05 PM CDT 06/11/2025 1:05 PM CDT Dari Bojorquez MD LAB POCT ORDERABLES - DEVICE Final Result Performing Organization Address [facility] de Phone Number [facility] [place] [address] * POCT glucose (06/11/2025 12:09 PM CDT) Glucose, POC 152 70 - 199 mg/dL Blood 06/11/2025 12:0 9 PM CDT 06/11/2025 12:09 PM CDT Dari Bojorquez MD LAB POCT ORDERABLES - DEVICE Final Result Performing Organization Address [facility] de Phone Number [facility] [place] [address] * POCT glucose (06/11/2025 11:13 AM CDT) Glucose, POC 162 70 - 199 mg/dL Blood 06/11/2025 11:1 3 AM CDT 06/11/2025 11:13 AM CDT Dari Bojorquez MD LAB POCT ORDERABLES - DEVICE Final Result Performing Organization Address City/[facility]/ZIP Co de Phone Number [facility] [place] [address] * (ABNORMAL) POCT glucose (06/11/2025 10:08 AM CDT) Glucose, POC 205(H) 70 - 199 mg/dL Blood 06/11/2025 10:0 8 AM CDT 06/11/2025 10:08 AM CDT us Dari Bojorquez MD LAB POCT ORDERABLES - DEVICE Final Result Performing Organization Address [facility] Co de Phone Number [facility] [place] [address] * POCT glucose (06/11/2025 9:23 AM CDT) Glucose, POC 176 70 - 199 mg/dL Blood 06/11/2025 9:23 AM CDT 06/11/2025 9:23 AM CDT us Dari Bojorquez MD LAB POCT ORDERABLES - DEVICE Final Result Performing Organization Address [facility] Co de Phone Number [facility] [place] [address] * POCT glucose (06/11/2025 7:59 AM CDT) Glucose, POC 76 70 - 199 mg/dL Blood 06/11/2025 7:59 AM CDT 06/11/2025 7:59 AM CDT Dari Bojorquez MD LAB POCT ORDERABLES - DEVICE Final Result Performing Organization Address City/[facility]/ZIP Co de Phone Number [facility] [place] [address] * POCT glucose (06/11/2025 6:02 AM CDT) Glucose, POC 113 70 - 199 mg/dL Blood 06/11/2025 6:02 AM CDT 06/11/2025 6:02 AM CDT us Dari Bojorquez MD LAB POCT ORDERABLES - [place] [address] * POCT glucose (06/11/2025 4:30 AM CDT) Glucose, POC 117 70 - 199 mg/dL Blood 06/11/2025 4:30 AM CDT 06/11/2025 4:30 AM CDT us Dari Bojorquez MD LAB POCT ORDERABLES - DEVICE Final Result Performing Organization Address City/[facility]/[place] [address] * POCT glucose (06/11/2025 3:37 AM CDT) Glucose, POC 117 70 - 199 mg/dL Blood 06/11/2025 3:37 AM CDT 06/11/2025 3:37 AM CDT us Dari Bojorquez MD LAB POCT ORDERABLES - DEVICE Final Result Performing Organization Address [facility]/[place] [address] * POCT glucose (06/11/2025 2:29 AM CDT) Glucose, POC 121 70 - 199 mg/dL Blood 06/11/2025 2:29 AM CDT 06/11/2025 2:29 AM CDT Dari Bojorquez MD LAB POCT ORDERABLES - DEVICE Final Result Performing Organization Address [facility] [facility] de Phone Number [facility] [place] [address] * POCT glucose (06/11/2025 1:26 AM CDT) Glucose, POC 140 70 - 199 mg/dL Blood 06/11/2025 1:26 AM CDT 06/11/2025 1:26 AM CDT Dari Bojorquez MD LAB POCT ORDERABLES - DEVICE Final Result Performing Organization Address [facility] de Phone Number [facility] [place] [address] * POCT glucose (06/11/2025 12:16 AM CDT) Glucose, POC 157 70 - 199 mg/dL Blood 06/11/2025 12:1 6 AM CDT 06/11/2025 12:16 AM CDT Dari Bojorquez MD LAB POCT ORDERABLES - DEVICE Final Result Performing Organization Address [facility] de Phone Number [facility] [place] [address] * POCT glucose (06/10/2025 11:00 PM CDT) Glucose, POC 194 70 - 199 mg/dL Blood 06/10/2025 11:0 0 PM CDT 06/10/2025 11:00 PM CDT us Dari Bojorquez MD LAB POCT ORDERABLES - DEVICE Final Result Performing Organization Address [facility] Co de Phone Number [id number] [place] [address] * (ABNORMAL) POCT glucose (06/10/2025 9:52 PM CDT) Glucose, POC 211(H) 70 - 199 mg/dL Blood 06/10/2025 9:52 PM CDT 06/10/2025 9:52 PM CDT Dari Bojorquez MD LAB POCT ORDERABLES - DEVICE Final Result Performing Organization Address [facility] Co de Phone Number VIKKI [facility] [place] [address] * POCT glucose (06/10/2025 8:58 PM CDT) Glucose, POC 164 70 - 199 mg/dL Blood 06/10/2025 8:58 PM CDT 06/10/2025 8:58 PM CDT Dari Bojorquez MD LAB POCT ORDERABLES - DEVICE Final Result Performing Organization Address [facility] Co de Phone Number [facility] [place] [address] * eGFR (06/10/2025 8:47 PM CDT) eGFR [...] SCOTT LAB BLOOD ORDERABLES Fin al Result [facility] [place] [address] * (ABNORMAL) CBC without differential (06/10/2025 8:47 PM CDT) WBC 25.59(H) 3.80 - 9.90 K/cumm Hgb 10.2(L) 11.9 - 15.5 g/dL [facility] Hct 32.5(L) 35.6 - 45.5 % [facility] Plt 522(H) 150 - 400 K/cumm [facility] MPV 9.4 9.1 - 12.3 fL [facility] RBC 3.67(L) 3.90 - 5.20 M/cumm [facility] MCV 88.6 81.3 - 96.4 fL [facility] MCH 27.8 27.1 - 33.3 pg [facility] MCHC 31.4(L) 32.3 - 35.7 g/dL [facility] RDW CV 14.6 11.1 - 14.9 % [facility] RDW SD 46.5 35.7 - 48.1 fL [facility] NRBC abs 0.02(H) 0.00 - 0.01 K/cumm [facility] Blood 06/10/2025 8:47 PM CDT 06/10/2025 9:07 PM CDT Kelly SCOTT LAB BLOOD ORDERABLES Fin al Result Performing Organization Address [facility] Co de Phone Number [facility] [place] [address] * Phosphorus (06/10/2025 8:47 PM CDT) Pathologist [facility] Phosphorus, pl 3.5 2.3 - 4.5 mg/dL Blood 06/10/2025 8:47 PM CDT 06/10/2025 9:07 PM CDT Kelly SCOTT LAB BLOOD ORDERABLES Fin al Result Performing Organization Address [facility] de Phone Number [facility] [place] [address] * Magnesium (06/10/2025 8:47 PM CDT) [facility] Magnesium 1.6 1.4 - 2.5 mg/dL Blood 06/10/2025 8:47 PM CDT 06/10/2025 9:07 PM CDT Kelly SCOTT LAB BLOOD ORDERABLES Fin al Result Performing Organization Address [facility] de Phone Number [facility] [place] [address] * (ABNORMAL) Basic metabolic panel (06/10/2025 8:47 PM CDT) Pathologist [facility] Sodium 147(H) 135 - 145 mmol/L Potassium, pl 4.4 3.3 - 4.9 mmol/L [facility] Chloride 113(H) 97 - 110 mmol/L [facility] CO2 24 22 - 32 mmol/L [facility] Anion gap 10 2 - 15 mmol/L [facility] BUN 9 6 - 25 mg/dL [facility] Creatinine 0.49(L) 0.60 - 1.10 mg/dL [facility] Glucose 153 70 - 199 mg/dL [facility] Comment: Interpretive Data Fasting glucose >/= 126 [...] 2022. Calcium 8.7 8.5 - 10.3 mg/dL [facility] Blood 06/10/2025 8:47 PM CDT 06/10/2025 9:07 PM CDT Kelly SCOTT LAB BLOOD ORDERABLES Fin al Result [facility] [place] [address] * POCT glucose (06/10/2025 8:03 PM CDT) Glucose, POC 141 70 - 199 mg/dL Blood 06/10/2025 8:03 PM CDT 06/10/2025 8:03 PM CDT Dari Bojorquez MD LAB POCT ORDERABLES - DEVICE Final Result [facility] [place] [address] * POCT glucose (06/10/2025 6:55 PM CDT) Glucose, POC 125 70 - 199 mg/dL Blood 06/10/2025 6:55 PM CDT 06/10/2025 6:55 PM CDT Dari Bojorquez MD LAB POCT ORDERABLES - DEVICE Final Result Performing Organization Address [facility] de Phone Number [facility] [place] [address] * POCT glucose (06/10/2025 6:01 PM CDT) Glucose, POC 111 70 - 199 mg/dL Blood 06/10/2025 6:01 PM CDT 06/10/2025 6:01 PM CDT Dari Bojorquez MD LAB POCT ORDERABLES - DEVICE Final Result Performing Organization Address [facility] de Phone Number [facility] [place] [address] * POCT glucose (06/10/2025 4:52 PM CDT) Glucose, POC 103 70 - 199 mg/dL Blood 06/10/2025 4:52 PM CDT 06/10/2025 4:52 PM CDT Dari Bojorquez MD LAB POCT ORDERABLES - DEVICE Final Result Performing Organization Address [facility] [place] [address] * [place] AN ELECTIVE ENDOTRACHEAL AIRWAY, [place] 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 (06/10/2025 4:40 PM CDT) Narrative Roselia Rios CRNA - 06/10/2025 4:40 PM CDT Roselia Rios CRNA 06/10/2025 4:40 PM Airway Patient location: OR Urgency: elective Indications for airway management: anesthesia Difficult airway: no Staff: Supervising provider: Higinio Tamayo MD PhD Placed by: ZANJERO: Roselia Rios CRNA Emergent airway documentation: Risks [...] POCT ORDERABLES - DEVICE Final Result [facility]I [facility] [place] [address] * POCT glucose (06/10/2025 2:22 PM CDT) Glucose, POC 131 70 - 199 mg/dL Blood 06/10/2025 2:22 PM CDT 06/10/2025 2:22 PM CDT Dari Bojorquez MD LAB POCT ORDERABLES - DEVICE Final Result Performing Organization Address [facility] de Phone Number [facility] [place] [address] * POCT glucose (06/10/2025 1:11 PM CDT) Glucose, POC 124 70 - 199 mg/dL Blood 06/10/2025 1:11 PM CDT 06/10/2025 1:11 PM CDT Dari Bojorquez MD LAB POCT ORDERABLES - DEVICE Final Result Performing Organization Address [facility] de Phone Number [facility] [place] [address] * POCT glucose (06/10/2025 12:19 PM CDT) Glucose, POC 99 70 - 199 mg/dL Blood 06/10/2025 12:1 9 PM CDT 06/10/2025 12:19 PM CDT Dari Bojorquez MD LAB POCT ORDERABLES - DEVICE Final Result Performing Organization Address [facility] de Phone Number [facility] [place] [address] * POCT glucose (06/10/2025 11:13 AM CDT) Glucose, POC 103 70 - 199 mg/dL Blood 06/10/2025 11:1 3 AM CDT 06/10/2025 11:13 AM CDT us Dari Bojorquez MD LAB POCT ORDERABLES - DEVICE Final Result Performing Organization Address [facility] Co de Phone Number [facility] [place] [address] * POCT glucose (06/10/2025 10:09 AM CDT) Glucose, POC 114 70 - 199 mg/dL Blood 06/10/2025 10:0 9 AM CDT 06/10/2025 10:09 AM CDT us Dari Bojorquez MD LAB POCT ORDERABLES - DEVICE Final Result Performing Organization Address [facility] de Phone Number [facility] [place] [address] * POCT glucose (06/10/2025 9:13 AM CDT) Glucose, POC 123 70 - 199 mg/dL Blood 06/10/2025 9:13 AM CDT 06/10/2025 9:13 AM CDT us Dari Bojorquez MD LAB POCT ORDERABLES - DEVICE Final Result Performing Organization Address [facility] Co de Phone Number [facility] [place] [address] * POCT glucose (06/10/2025 7:56 AM CDT) Glucose, POC 130 70 - 199 mg/dL Blood 06/10/2025 7:56 AM CDT 06/10/2025 7:56 AM CDT Dari Bojorquez MD LAB POCT ORDERABLES - DEVICE Final Result Performing Organization Address [facility] Co de Phone Number [facility] Department [place] [address] * POCT glucose (06/10/2025 6:56 AM CDT) Glucose, POC 144 70 - 199 mg/dL Blood 06/10/2025 6:56 AM CDT 06/10/2025 6:56 AM CDT us Dari Bojorquez MD LAB POCT ORDERABLES - DEVICE Final Result Performing Organization Address [facility]/[place] [address] * POCT glucose (06/10/2025 6:11 AM CDT) Glucose, POC 115 70 - 199 mg/dL Blood 06/10/2025 6:11 AM CDT 06/10/2025 6:11 AM CDT us Dari Bojorquez MD LAB POCT ORDERABLES - DEVICE Final Result Performing Organization Address [facility] [address] * POCT glucose (06/10/2025 4:50 AM CDT) Glucose, POC 92 70 - 199 mg/dL Blood 06/10/2025 4:50 AM CDT 06/10/2025 4:50 AM CDT us Dari Bojorquez MD LAB POCT ORDERABLES - DEVICE Final Result Performing Organization Address [facility] [address] * POCT glucose (06/10/2025 4:06 AM CDT) Glucose, POC 105 70 - 199 mg/dL Blood 06/10/2025 4:06 AM CDT 06/10/2025 4:06 AM CDT Dari Bojorquez MD LAB POCT ORDERABLES - DEVICE Final Result Performing Organization Address [facility] Co de Phone Number [facility] [place] [address] * POCT glucose (06/10/2025 3:11 AM CDT) Glucose, POC 129 70 - 199 mg/dL Blood 06/10/2025 3:11 AM CDT 06/10/2025 3:11 AM CDT Dari Bojorquez MD LAB POCT ORDERABLES - DEVICE Final Result Performing Organization Address [facility] de Phone Number [facility] [place] [address] * POCT glucose (06/10/2025 1:58 AM CDT) Glucose, POC 155 70 - 199 mg/dL Blood 06/10/2025 1:58 AM CDT 06/10/2025 1:58 AM CDT Dari Bojorquez MD LAB POCT ORDERABLES - DEVICE Final Result Performing Organization Address [facility] de Phone Number [facility] [place] [address] * POCT glucose (06/10/2025 1:07 AM CDT) Glucose, POC 122 70 - 199 mg/dL Blood 06/10/2025 1:07 AM CDT 06/10/2025 1:07 AM CDT us Dari Bojorquez MD LAB POCT ORDERABLES - DEVICE Final Result Performing Organization Address [facility] Co de Phone Number [facility] [place] [address] * POCT glucose (06/10/2025 12:08 AM CDT) Glucose, POC 144 70 - 199 mg/dL Blood 06/10/2025 12:0 8 AM CDT 06/10/2025 12:08 AM CDT Dari Bojorquez MD LAB POCT ORDERABLES - DEVICE Final Result Performing Organization Address [facility] de Phone Number [facility] [place] [address] * POCT glucose (06/09/2025 11:11 PM CDT) Glucose, POC 159 70 - 199 mg/dL Blood 06/09/2025 11:1 1 PM CDT 06/09/2025 11:11 PM CDT us Dari Bojorquez MD LAB POCT ORDERABLES - DEVICE Final Result Performing Organization Address [facility] Co de Phone Number [facility] Department [place] [address] * POCT glucose (06/09/2025 10:03 PM CDT) Glucose, POC 183 70 - 199 mg/dL Blood 06/09/2025 10:0 3 PM CDT 06/09/2025 10:03 PM CDT Dari Bojorquez MD LAB POCT ORDERABLES - DEVICE Final Result Performing Organization Address [facility] Co de Phone Number CERNER [facility] [place] [address] * (ABNORMAL) POCT glucose (06/09/2025 9:06 PM CDT) [facility] Glucose, POC 206(H) 70 - 199 mg/dL Blood 06/09/2025 9:06 PM CDT 06/09/2025 9:06 PM CDT us Dari Bojorquez MD LAB POCT ORDERABLES - DEVICE Final Result Performing Organization Address [facility]/ZIP Co de Phone Number VIKKI [facility] [place] [address] * eGFR (06/09/2025 8:07 PM CDT) [facility] eGFR >90 >=60 mL/min/1. 73 m2 [...] LAB BLOOD ORDERABLES Fin al Result VIKKI [facility] Department [place] [address] * (ABNORMAL) CBC without differential (06/09/2025 8:07 PM CDT) [facility] WBC 20.86(H) 3.80 - 9.90 K/cumm Hgb 9.5(L) 11.9 - 15.5 g/dL [facility] Hct 30.3(L) 35.6 - 45.5 % [facility] Plt 431(H) 150 - 400 K/cumm [facility] MPV 9.9 9.1 - 12.3 fL [facility] RBC 3.42(L) 3.90 - 5.20 M/cumm [facility] MCV 88.6 81.3 - 96.4 fL [facility] MCH 27.8 27.1 - 33.3 pg [facility] MCHC 31.4(L) 32.3 - 35.7 g/dL [facility] RDW CV 14.6 11.1 - 14.9 % [facility] RDW SD 46.2 35.7 - 48.1 fL [facility] NRBC abs 0.02(H) 0.00 - 0.01 K/cumm [facility] Blood 06/09/2025 8:07 PM CDT 06/09/2025 8:59 PM CDT Kelly SCOTT LAB BLOOD ORDERABLES Fin al Result Performing Organization Address [facility] Co de Phone Number [facility] Department [place] [address] * Phosphorus (06/09/2025 8:07 PM CDT) [facility] Phosphorus, pl 2.4 2.3 - 4.5 mg/dL Blood 06/09/2025 8:07 PM CDT 06/09/2025 8:59 PM CDT Kelly SCOTT LAB BLOOD ORDERABLES Fin al Result Performing Organization Address City/[facility] Co de Phone Number [facility] Department [place] [address] * Magnesium (06/09/2025 8:07 PM CDT) [facility] Magnesium 1.5 1.4 - 2.5 mg/dL Blood 06/09/2025 8:07 PM CDT 06/09/2025 8:59 PM CDT Kelly SCOTT LAB BLOOD ORDERABLES Fin al Result Performing Organization Address [facility] Co de Phone Number [facility] [place] [address] * (ABNORMAL) Basic metabolic panel (06/09/2025 8:07 PM CDT) [facility] Sodium 141 135 - 145 mmol/L Potassium, pl 4.1 3.3 - 4.9 mmol/L [facility] Chloride 107 97 - 110 mmol/L [facility] CO2 25 22 - 32 mmol/L [facility] Anion gap 9 2 - 15 mmol/L [facility] BUN 10 6 - 25 mg/dL [facility] Creatinine 0.49(L) 0.60 - 1.10 mg/dL [facility] Glucose 210(H) 70 - 199 mg/dL [facility] Comment: Interpretive Data Fasting glucose >/= 126 [...] 2022. Calcium 8.2(L) 8.5 - 10.3 mg/dL [facility] Blood 06/09/2025 8:07 PM CDT 06/09/2025 8:59 PM CDT us Kelly SCOTT LAB BLOOD ORDERABLES Fin al Result Performing Organization Address [facility] Co de Phone Number [facility] [place] [address] * (ABNORMAL) POCT glucose (06/09/2025 8:05 PM CDT) Glucose, POC 208(H) 70 - 199 mg/dL Blood 06/09/2025 8:05 PM CDT 06/09/2025 8:05 PM CDT us Dari Bojorquez MD LAB POCT ORDERABLES - DEVICE Final Result Performing Organization Address [facility] de Phone Number [facility] [place] [address] * (ABNORMAL) POCT glucose (06/09/2025 7:09 PM CDT) Glucose, POC 248(H) 70 - 199 mg/dL Blood 06/09/2025 7:09 PM CDT 06/09/2025 7:09 PM CDT us Dari Bojorquez MD LAB POCT ORDERABLES - DEVICE Final Result Performing Organization Address [facility] Co de Phone Number [facility] [place] [address] * POCT glucose (06/09/2025 6:17 PM CDT) Glucose, POC 176 70 - 199 mg/dL Blood 06/09/2025 6:17 PM CDT 06/09/2025 6:17 PM CDT Dari Bojorquez MD LAB POCT ORDERABLES - DEVICE Final Result Performing Organization Address [facility] Co de Phone Number [facility] [place] [address] * POCT glucose (06/09/2025 5:14 PM CDT) Glucose, POC 186 70 - 199 mg/dL Blood 06/09/2025 5:14 PM CDT 06/09/2025 5:14 PM CDT us Dari Bojorquez MD LAB POCT ORDERABLES - DEVICE Final Result Performing Organization Address [facility] [place] [address] * POCT glucose (06/09/2025 4:19 PM CDT) Glucose, POC 193 70 - 199 mg/dL Blood 06/09/2025 4:19 PM CDT 06/09/2025 4:19 PM CDT us Dari Bojorquez MD LAB POCT ORDERABLES - DEVICE Final Result Performing Organization Address [facility] Co de Phone Number [facility] [place] [address] * POCT glucose (06/09/2025 3:09 PM CDT) Glucose, POC 187 70 - 199 mg/dL Blood 06/09/2025 3:09 PM CDT 06/09/2025 3:09 PM CDT Dari Bojorquez MD LAB POCT ORDERABLES - DEVICE Final Result Performing Organization Address [facility] Co de Phone Number [facility] [place] [address] * POCT glucose (06/09/2025 2:11 PM CDT) Glucose, POC 180 70 - 199 mg/dL Blood 06/09/2025 2:11 PM CDT 06/09/2025 2:11 PM CDT Dari Bojorquez MD LAB POCT ORDERABLES - DEVICE Final Result Performing Organization Address [facility] Co de Phone Number [facility] [place] [address] * POCT glucose (06/09/2025 1:15 PM CDT) Glucose, POC 191 70 - 199 mg/dL Blood 06/09/2025 1:15 PM CDT 06/09/2025 1:15 PM CDT us Dari Bojorquez MD LAB POCT ORDERABLES - DEVICE Final Result Performing Organization Address [facility] Co de Phone Number [facility] [place] [address] * POCT glucose (06/09/2025 12:00 PM CDT) Glucose, POC 147 70 - 199 mg/dL Blood 06/09/2025 12:0 0 PM CDT 06/09/2025 12:00 PM CDT Dari Bojorquez MD LAB POCT ORDERABLES - DEVICE Final Result Performing Organization Address [facility] Co de Phone Number [facility] [place] [address] * (ABNORMAL) POCT glucose (06/09/2025 11:03 AM CDT) Glucose, POC 202(H) 70 - 199 mg/dL Blood 06/09/2025 11:0 3 AM CDT 06/09/2025 11:03 AM CDT Dari Bojorquez MD LAB POCT ORDERABLES - DEVICE Final Result Performing Organization Address [facility] de Phone Number [facility] [place] [address] * POCT glucose (06/09/2025 10:03 AM CDT) Glucose, POC 186 70 - 199 mg/dL Blood 06/09/2025 10:0 3 AM CDT 06/09/2025 10:03 AM CDT Dari Bojorquez MD LAB POCT ORDERABLES - DEVICE Final Result Performing Organization Address [facility] de Phone Number [facility] [place] [address] * POCT glucose (06/09/2025 9:18 AM CDT) Glucose, POC 154 70 - 199 mg/dL Blood 06/09/2025 9:18 AM CDT 06/09/2025 9:18 AM CDT Dari Bojorquez MD LAB POCT ORDERABLES - DEVICE Final Result Performing Organization Address [facility] [place] [address] * POCT glucose (06/09/2025 8:02 AM CDT) Glucose, POC 102 70 - 199 mg/dL Blood 06/09/2025 8:02 AM CDT 06/09/2025 8:02 AM CDT Dari Bojorquez MD LAB POCT ORDERABLES - DEVICE Final Result Performing Organization Address [facility]ZIP Co de Phone Number [facility] [place] [address] * POCT glucose (06/09/2025 6:53 AM CDT) Glucose, POC 111 70 - 199 mg/dL Blood 06/09/2025 6:53 AM CDT 06/09/2025 6:53 AM CDT Dari Bojorquez MD LAB POCT ORDERABLES - DEVICE Final Result Performing Organization Address [facility] [place] [address] * POCT glucose (06/09/2025 6:10 AM CDT) Glucose, POC 121 70 - 199 mg/dL Blood 06/09/2025 6:10 AM CDT 06/09/2025 6:10 AM CDT Dari Bojorquez MD LAB POCT ORDERABLES - DEVICE Final Result Performing Organization Address [facility]ZIP Co de Phone Number [facility] [place] [address] * POCT glucose (06/09/2025 4:58 AM CDT) Glucose, POC 115 70 - 199 mg/dL Blood 06/09/2025 4:58 AM CDT 06/09/2025 4:58 AM CDT Dari Bojorquez MD LAB POCT ORDERABLES - DEVICE Final Result Performing Organization Address [facility]ZIP Co de Phone Number [facility] [place] [address] * POCT glucose (06/09/2025 4:07 AM CDT) Glucose, POC 132 70 - 199 mg/dL Blood 06/09/2025 4:07 AM CDT 06/09/2025 4:07 AM CDT Dari Bojorquez MD LAB POCT ORDERABLES - DEVICE Final Result Performing Organization Address [facility]ZIP Co de Phone Number [facility] [place] [address] * POCT glucose (06/09/2025 3:01 AM CDT) Glucose, POC 85 70 - 199 mg/dL Blood 06/09/2025 3:01 AM CDT 06/09/2025 3:01 AM CDT us Dari Bojorquez MD LAB POCT ORDERABLES - DEVICE Final Result Performing Organization Address [facility]ZIP Co de Phone Number [facility] [place] [address] * POCT glucose (06/09/2025 2:06 AM CDT) Glucose, POC 125 70 - 199 mg/dL Blood 06/09/2025 2:06 AM CDT 06/09/2025 2:06 AM CDT Dari Bojorquez MD LAB POCT ORDERABLES - DEVICE Final Result Performing Organization Address [facility] [place] [address] * POCT glucose (06/09/2025 1:02 AM CDT) Glucose, POC 142 70 - 199 mg/dL Blood 06/09/2025 1:02 AM CDT 06/09/2025 1:02 AM CDT Dari Bojorquez MD LAB POCT ORDERABLES - DEVICE Final Result Performing Organization Address [facility] de Phone Number [facility] [place] [address] * POCT glucose (06/09/2025 12:09 AM CDT) Glucose, POC 172 70 - 199 mg/dL Blood 06/09/2025 12:0 9 AM CDT 06/09/2025 12:09 AM CDT Dari Bojorquez MD LAB POCT ORDERABLES - DEVICE Final Result Performing Organization Address [facility] de Phone Number [facility] [place] [address] * (ABNORMAL) POCT glucose (06/08/2025 11:08 PM CDT) Glucose, POC 208(H) 70 - 199 mg/dL Blood 06/08/2025 11:0 8 PM CDT 06/08/2025 11:08 PM CDT Dari Bojorquez MD LAB POCT ORDERABLES - DEVICE Final Result Performing Organization Address [facility] [place] [address] * (ABNORMAL) POCT glucose (06/08/2025 10:05 PM CDT) Glucose, POC 202(H) 70 - 199 mg/dL Blood 06/08/2025 10:0 5 PM CDT 06/08/2025 10:05 PM CDT Dari Bojorquez MD LAB POCT ORDERABLES - DEVICE Final Result [facility] Department [place] [address] * POCT glucose (06/08/2025 9:11 PM CDT) Glucose, POC 169 70 - 199 mg/dL Blood 06/08/2025 9:11 PM CDT 06/08/2025 9:11 PM CDT Dari Bojorquez MD LAB POCT ORDERABLES - DEVICE Final Result Performing Organization Address [facility] Co de Phone Number VIKKI [facility] [place] [address] * eGFR (06/08/2025 8:49 PM CDT) [facility] eGFR >90 >=60 mL/min/1. 73 m2 [...] ORDERABLES Fin al Result Performing Organization Address City/[facility]/ZIP Co de Phone Number [facility] Department [place] [address] * (ABNORMAL) CBC without differential (06/08/2025 8:49 PM CDT) WBC 26.41(H) 3.80 - 9.90 K/cumm Hgb 10.2(L) 11.9 - 15.5 g/dL [facility] Hct 32.3(L) 35.6 - 45.5 % [facility] Plt 430(H) 150 - 400 K/cumm [facility] MPV 9.7 9.1 - 12.3 fL [facility] RBC 3.65(L) 3.90 - 5.20 M/cumm [facility] MCV 88.5 81.3 - 96.4 fL [facility] MCH 27.9 27.1 - 33.3 pg [facility] MCHC 31.6(L) 32.3 - 35.7 g/dL [facility] RDW CV 14.4 11.1 - 14.9 % [facility] RDW SD 45.8 35.7 - 48.1 fL [facility] NRBC abs 0.07(H) 0.00 - 0.01 K/cumm [facility] Blood 06/08/2025 8:49 PM CDT 06/08/2025 9:04 PM CDT Kelly SCOTT LAB BLOOD ORDERABLES Fin al Result [facility] [place] [address] * Phosphorus (06/08/2025 8:49 PM CDT) Phosphorus, pl 3.3 2.3 - 4.5 mg/dL Blood 06/08/2025 8:49 PM CDT 06/08/2025 9:04 PM CDT Kelly SCOTT LAB BLOOD ORDERABLES Fin al Result Performing Organization Address City/[facility]/ZIP Co de Phone Number [facility] [place] [address] * Magnesium (06/08/2025 8:49 PM CDT) Pathologist [facility] Magnesium 1.7 1.4 - 2.5 mg/dL Blood 06/08/2025 8:49 PM CDT 06/08/2025 9:04 PM CDT Kelly SCOTT LAB BLOOD ORDERABLES Fin al Result Performing Organization Address [facility] de Phone Number [facility] [place] [address] * (ABNORMAL) Basic metabolic panel (06/08/2025 8:49 PM CDT) [facility] Sodium 140 135 - 145 mmol/L Potassium, pl 4.0 3.3 - 4.9 mmol/L [facility] Chloride 106 97 - 110 mmol/L [facility] CO2 24 22 - 32 mmol/L [facility] Anion gap 10 2 - 15 mmol/L [facility] BUN 10 6 - 25 mg/dL [facility] Creatinine 0.50(L) 0.60 - 1.10 mg/dL [facility] Glucose 107 70 - 199 mg/dL [facility] Comment: Interpretive Data Fasting glucose >/= 126 [...] 2022. Calcium 8.6 8.5 - 10.3 mg/dL [facility] Blood 06/08/2025 8:49 PM CDT 06/08/2025 9:04 PM CDT Kelly SCOTT LAB BLOOD ORDERABLES Fin al Result Performing Organization Address [facility] Co de Phone Number [facility] [place] [address] * POCT glucose (06/08/2025 8:04 PM CDT) Glucose, POC 77 70 - 199 mg/dL Blood 06/08/2025 8:04 PM CDT 06/08/2025 8:04 PM CDT Dari Bojorquez MD LAB POCT ORDERABLES - DEVICE Final Result Performing Organization Address City[facility] Co de Phone Number [facility] [place] [address] * POCT glucose (06/08/2025 6:59 PM CDT) Glucose, POC 132 70 - 199 mg/dL Blood 06/08/2025 6:5 9 PM CDT 06/08/2025 6:59 PM CDT Dari Bojorquez MD LAB POCT ORDERABLES - DEVICE Final Result Performing Organization Address [facility] de Phone Number [facility] [place] [address] * POCT glucose (06/08/2025 6:00 PM CDT) Glucose, POC 125 70 - 199 mg/dL Blood 06/08/2025 6:00 PM CDT 06/08/2025 6:00 PM CDT Dari Bojorquez MD LAB POCT ORDERABLES - DEVICE Final Result Performing Organization Address [facility] de Phone Number [facility] [place] [address] * POCT glucose (06/08/2025 4:59 PM CDT) Glucose, POC 144 70 - 199 mg/dL Blood 06/08/2025 4:59 PM CDT 06/08/2025 4:59 PM CDT us Dari Bojorquez MD LAB POCT ORDERABLES - DEVICE Final Result Performing Organization Address [facility] de Phone Number [facility] [place] [address] * POCT glucose (06/08/2025 4:07 PM CDT) Glucose, POC 182 70 - 199 mg/dL Blood 06/08/2025 4:07 PM CDT 06/08/2025 4:07 PM CDT Dari Bojorquez MD LAB POCT ORDERABLES - DEVICE Final Result Performing Organization Address [facility] de Phone Number [facility] [place] [address] * (ABNORMAL) POCT glucose (06/08/2025 2:49 PM CDT) Glucose, POC 218(H) 70 - 199 mg/dL Blood 06/08/2025 2:49 PM CDT 06/08/2025 2:49 PM CDT Dari Bojorquez MD LAB POCT ORDERABLES - DEVICE Final Result Performing Organization Address [facility]/State/ZIP Co de Phone Number [facility] [place] [address] * POCT glucose (06/08/2025 12:50 PM CDT) Glucose, POC 139 70 - 199 mg/dL Blood 06/08/2025 12:5 0 PM CDT 06/08/2025 12:50 PM CDT us Dari Bojorquez MD LAB POCT ORDERABLES - DEVICE Final Result Performing Organization Address [facility] [place] [address] * POCT glucose (06/08/2025 10:57 AM CDT) Glucose, POC 149 70 - 199 mg/dL Blood 06/08/2025 10:5 7 AM CDT 06/08/2025 10:57 AM CDT us Dari Bojorquez MD LAB POCT ORDERABLES - DEVICE Final Result Performing Organization Address [facility]/ZIP Co de Phone Number [facility] [place] [address] * POCT glucose (06/08/2025 10:07 AM CDT) Glucose, POC 141 70 - 199 mg/dL Blood 06/08/2025 10:0 7 AM CDT 06/08/2025 10:07 AM CDT us Dari Bojorquez MD LAB POCT ORDERABLES - DEVICE Final Result [facility] [place] [address] * POCT glucose (06/08/2025 8:54 AM CDT) Glucose, POC 102 70 - 199 mg/dL Blood 06/08/2025 8:54 AM CDT 06/08/2025 8:54 AM CDT Dari Bojorquez MD LAB POCT ORDERABLES - DEVICE Final Result Performing Organization Address [facility] Co de Phone Number [facility] [place] [address] * POCT glucose (06/08/2025 7:59 AM CDT) Glucose, POC 104 70 - 199 mg/dL Blood 06/08/2025 7:59 AM CDT 06/08/2025 7:59 AM CDT us Dari Bojorquez MD LAB POCT ORDERABLES - DEVICE Final Result Performing Organization Address [facility] Co de Phone Number [facility] [place] [address] * POCT glucose (06/08/2025 6:58 AM CDT) Glucose, POC 123 70 - 199 mg/dL Blood 06/08/2025 6:58 AM CDT 06/08/2025 6:58 AM CDT Dari Bojorquez MD LAB POCT ORDERABLES - DEVICE Final Result Performing Organization Address [facility] Co de Phone Number [facility] [place] [address] * POCT glucose (06/08/2025 5:59 AM CDT) Glucose, POC 149 70 - 199 mg/dL Blood 06/08/2025 5:59 AM CDT 06/08/2025 5:59 AM CDT us Dari Bojorquez MD LAB POCT ORDERABLES - DEVICE Final Result Performing Organization Address [facility] Co de Phone Number VIKKI JACKSON [facility] [place] [address] * Critical Care (06/08/2025 5:57 AM CDT) [...] plan with the patient's team and other medical/creative consultant staff. This time was in addition [...] - DEVICE Final Result Performing Organization Address City[facility]/ZIP Co de Phone Number [facility] [place] [address] * POCT glucose (06/08/2025 3:59 AM CDT) Glucose, POC 194 70 - 199 mg/dL Blood 06/08/2025 3:59 AM CDT 06/08/2025 3:59 AM CDT us Dari Bojorquez MD LAB POCT ORDERABLES - DEVICE Final Result Performing Organization Address [facility] Co de Phone Number [facility] [place] [address] * POCT glucose (06/08/2025 3:03 AM CDT) Glucose, POC 174 70 - 199 mg/dL Blood 06/08/2025 3:03 AM CDT 06/08/2025 3:03 AM CDT Dari Bojorquez MD LAB POCT ORDERABLES - DEVICE Final Result Performing Organization Address [facility] de Phone Number [facility] [place] [address] * (ABNORMAL) POCT glucose (06/08/2025 2:04 AM CDT) Glucose, POC 244(H) 70 - 199 mg/dL Blood 06/08/2025 2:04 AM CDT 06/08/2025 2:04 AM CDT Dari Bojorquez MD LAB POCT ORDERABLES - DEVICE Final Result Performing Organization Address [facility] [place] [address] * (ABNORMAL) POCT glucose (06/08/2025 12:57 AM CDT) Glucose, POC 221(H) 70 - 199 mg/dL Blood 06/08/2025 12:5 7 AM CDT 06/08/2025 12:57 AM CDT Dari Bojorquez MD LAB POCT ORDERABLES - DEVICE Final Result Performing Organization Address [facility] Co de Phone Number [facility] [place] [address] * (ABNORMAL) POCT glucose (06/08/2025 12:04 AM CDT) Glucose, POC 243(H) 70 - 199 mg/dL Comment:Glu2: RN/MD Notified Glucose comment 1 Glu2: RN/MD Notified [facility] Blood 06/08/2025 12:0 4 AM CDT 06/08/2025 12:04 AM CDT us Dari Bojorquez MD LAB POCT ORDERABLES - DEVICE Final Result Performing Organization Address [facility] Co de Phone Number [facility] [place] [address] * POCT glucose (06/07/2025 11:06 PM CDT) Glucose, POC 186 70 - 199 mg/dL Blood 06/07/2025 11:0 6 PM CDT 06/07/2025 11:06 PM CDT us Dari Bojorquez MD LAB POCT ORDERABLES - DEVICE Final Result Performing Organization Address [facility] Co de Phone Number [facility] [place] [address] * (ABNORMAL) POCT glucose (06/07/2025 10:04 PM CDT) Glucose, POC 205(H) 70 - 199 mg/dL Blood 06/07/2025 10:0 4 PM CDT 06/07/2025 10:04 PM CDT us Dari Bojorquez MD LAB POCT ORDERABLES - DEVICE Final Result [facility] [place] [address] * POCT glucose (06/07/2025 9:01 PM CDT) Glucose, POC 140 70 - 199 mg/dL Blood 06/07/2025 9:01 PM CDT 06/07/2025 9:01 PM CDT us Dari Bojorquez MD LAB POCT ORDERABLES - DEVICE Final Result Performing Organization Address [facility] Co de Phone Number [facility] [place] [address] * eGFR (06/07/2025 8:02 PM CDT) eGFR [...] ORDERABLES Fin al Result Performing Organization Address [facility] de Phone Number [facility] Department [place] [address] * (ABNORMAL) CBC without differential (06/07/2025 8:02 PM CDT) Pathologist [facility] WBC 24.89(H) 3.80 - 9.90 K/cumm Hgb 11.6(L) 11.9 - 15.5 g/dL [facility] Hct 35.9 35.6 - 45.5 % [facility] Plt 444(H) 150 - 400 K/cumm [facility] MPV 9.5 9.1 - 12.3 fL [facility] RBC 4.12 3.90 - 5.20 M/cumm [facility] MCV 87.1 81.3 - 96.4 fL [facility] MCH 28.2 27.1 - 33.3 pg [facility] MCHC 32.3 32.3 - 35.7 g/dL [facility] RDW CV 14.5 11.1 - 14.9 % [facility] RDW SD 45.8 35.7 - 48.1 fL [facility] NRBC abs 0.07(H) 0.00 - 0.01 K/cumm [facility] Blood 06/07/2025 8:02 PM CDT 06/07/2025 8:20 PM CDT Kelly SCOTT LAB BLOOD ORDERABLES Fin al Result Performing Organization Address [facility] de Phone Number [facility] Department [place] [address] * Phosphorus (06/07/2025 8:02 PM CDT) Pathologist [facility] Phosphorus, pl 4.1 2.3 - 4.5 mg/dL Blood 06/07/2025 8:02 PM CDT 06/07/2025 8:14 PM CDT Kelly SCOTT LAB BLOOD ORDERABLES Fin al Result Performing Organization Address City/[facility] Co de Phone Number [facility] Department [place] [address] * Magnesium (06/07/2025 8:02 PM CDT) Magnesium 2.2 1.4 - 2.5 mg/dL Blood 06/07/2025 8:02 PM CDT 06/07/2025 8:14 PM CDT Kelly Mendoza No PA LAB BLOOD ORDERABLES Fin al Result Performing Organization Address [facility] de Phone Number [facility] Department [place] [address] * (ABNORMAL) Lipid panel (06/07/2025 8:02 PM [...] revised on 2018. Triglycerides 153(H) <=149 mg/dL [facility] Comment: Interpretive Data Ages < [...] on 2018. HDL 33(L) >=40 mg/dL [facility] Comment: Interpretive Data Ages < or [...] 2018. LDL, calculated 40 <=129 mg/dL [facility] Comment: Interpretive Data Ages < or [...] on 2024. Non-HDL Cholesterol 66 mg/dL [facility] Comment: Interpretive Data Ages < or [...] last revised on 2018. Chol/HDL ratio 3 [facility] Blood 06/07/2025 8:02 PM CDT 06/07/2025 8:14 PM CDT us Dari Bojorquez MD LAB BLOOD ORDERABLES Final Result [facility] Department [place] [address] * (ABNORMAL) Basic metabolic panel (06/07/2025 8:02 PM CDT) Sodium 144 135 - 145 mmol/L Potassium, pl 4.3 3.3 - 4.9 mmol/L [facility] Chloride 109 97 - 110 mmol/L [facility] CO2 26 22 - 32 mmol/L [facility] Anion gap 9 2 - 15 mmol/L [facility] BUN 8 6 - 25 mg/dL [facility] Creatinine 0.52(L) 0.60 - 1.10 mg/dL [facility] Glucose 127 70 - 199 mg/dL [facility] Comment: Interpretive Data Fasting glucose >/= 126 [...] 2022. Calcium 8.7 8.5 - 10.3 mg/dL [facility] Blood 06/07/2025 8:02 PM CDT 06/07/2025 8:14 PM CDT us Kelly SCOTT LAB BLOOD ORDERABLES Fin al Result [facility] Department [place] [address] * Critical Care (06/07/2025 7:41 PM CDT) [...] plan with the ICU team and other medical/creative consultant staff, making frequent assessments and decisions [...] - DEVICE Final Result Performing Organization Address City/[facility] Co de Phone Number [facility] [place] [address] * POCT glucose (06/07/2025 6:52 PM CDT) Glucose, POC 107 70 - 199 mg/dL Blood 06/07/2025 6:52 PM CDT 06/07/2025 6:52 PM CDT Dari Bojorquez MD LAB POCT ORDERABLES - DEVICE Final Result Performing Organization Address [facility] de Phone Number [facility] [place] [address] * [place] AN ELECTIVE ENDOTRACHEAL AIRWAY, [place] 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 (06/07/2025 5:49 PM CDT) Narrative Radhika Cage CRNA - 06/07/2025 5:49 PM CDT Radhika Cage CRNA 06/07/2025 5:49 PM Airway Patient location: OR Urgency: elective Indications for airway management: anesthesia and airway protection Difficult airway: no Staff: Supervising provider: Dayana Dias MD Placed by: ZANJERO: Radhika Cage CRNA Emergent airway documentation: Risks [...] - DEVICE Final Result Performing Organization Address [facility] de Phone Number [facility] [place] [address] * POCT glucose (06/07/2025 4:15 PM CDT) Glucose, POC 133 70 - 199 mg/dL Blood 06/07/2025 4:15 PM CDT 06/07/2025 4:15 PM CDT Dari Bojorquez MD LAB POCT ORDERABLES - DEVICE Final Result Performing Organization Address [facility] de Phone Number [facility] [place] [address] * POCT glucose (06/07/2025 3:03 PM CDT) Glucose, POC 156 70 - 199 mg/dL Blood 06/07/2025 3:03 PM CDT 06/07/2025 3:03 PM CDT Dari Bojorquez MD LAB POCT ORDERABLES - DEVICE Final Result Performing Organization Address [facility] Co de Phone Number [facility] [place] [address] * POCT glucose (06/07/2025 2:24 PM CDT) Glucose, POC 170 70 - 199 mg/dL Blood 06/07/2025 2:24 PM CDT 06/07/2025 2:24 PM CDT Dari Bojorquez MD LAB POCT ORDERABLES - DEVICE Final Result Performing Organization Address [facility] Co de Phone Number [facility] [place] [address] * POCT glucose (06/07/2025 1:11 PM CDT) Glucose, POC 182 70 - 199 mg/dL Blood 06/07/2025 1:11 PM CDT 06/07/2025 1:11 PM CDT Dari Bojorquez MD LAB POCT ORDERABLES - DEVICE Final Result Performing Organization Address [facility] de Phone Number [facility] [place] [address] * CT Pelvis W Contrast (06/07/2025 12:51 [...] LAB POCT ORDERABLES - DEVICE Final Result [facility] [place] [address] * (ABNORMAL) POCT glucose (06/07/2025 11:00 AM CDT) Glucose, POC 217(H) 70 - 199 mg/dL Blood 06/07/2025 11:0 0 AM CDT 06/07/2025 11:00 AM CDT Dari Bojorquez MD LAB POCT ORDERABLES - DEVICE Final Result Performing Organization Address [facility] [place] [address] * (ABNORMAL) POCT glucose (06/07/2025 9:54 AM CDT) Glucose, POC 201(H) 70 - 199 mg/dL Blood 06/07/2025 9:54 AM CDT 06/07/2025 9:54 AM CDT Dari Bojorquez MD LAB POCT ORDERABLES - DEVICE Final Result Performing Organization Address [facility] [place] [address] * Critical Care (06/07/2025 6:44 AM CDT) [...] plan with the patient's team and other medical/creative consultant staff. This time was in addition to and separate from care provided by other practitioners on this day of service. Rajesh Jeffries MD IN CLINIC/BEDSIDE ORDERABLE S Final Result * (ABNORMAL) POCT glucose (06/07/2025 1:59 AM CDT) Glucose, POC 200(H) 70 - 199 mg/dL Blood 06/07/2025 1:59 AM CDT 06/07/2025 1:59 AM CDT Result [facility] Dari Bojorquez MD LAB POCT ORDERABLES - DEVICE Final Result Performing Organization Address [facility] de Phone Number [facility] Department [place] [address] * (ABNORMAL) Vancomycin level trough Draw trough 30 minutes prior to 4th dose. (06/06/2025 10:29 PM CDT) [facility] Vancomycin trough 7.1(L) 10.0 - 20.0 mcg/mL Blood 06/06/2025 10:2 9 PM CDT 06/06/2025 10:35 PM CDT Narrative [facility] 06/06/2025 11:43 PM CDT Draw trough 30 minutes prior to 4th dose. Result [facility] Kelly SCOTT LAB BLOOD ORDERABLES Fin al Result Performing Organization Address [facility] Co de Phone Number [facility] Department [place] [address] * (ABNORMAL) POCT glucose (06/06/2025 8:51 PM CDT) Glucose, POC 283(H) 70 - 199 mg/dL Blood 06/06/2025 8:51 PM CDT 06/06/2025 8:51 PM CDT Dari Bojorquez MD LAB POCT ORDERABLES - DEVICE Final Result Performing Organization Address [facility] Co de Phone Number VI[facility] Department [place] [address] * eGFR (06/06/2025 7:52 PM CDT) Pathologist [facility] eGFR >90 >=60 mL/min/1. 73 m2 Comment: [...] ORDERABLES Fin al Result Performing Organization Address [facility] Co de Phone Number [facility] Department [place] [address] * (ABNORMAL) CBC without differential (06/06/2025 7:52 PM CDT) [facility] WBC 21.30(H) 3.80 - 9.90 K/cumm Hgb 11.0(L) 11.9 - 15.5 g/dL [facility] Hct 33.4(L) 35.6 - 45.5 % [facility] Plt 416(H) 150 - 400 K/cumm [facility] MPV 10.0 9.1 - 12.3 fL [facility] RBC 3.90 3.90 - 5.20 M/cumm [facility] MCV 85.6 81.3 - 96.4 fL [facility] MCH 28.2 27.1 - 33.3 pg [facility] MCHC 32.9 32.3 - 35.7 g/dL [facility] RDW CV 14.0 11.1 - 14.9 % [facility] RDW SD 43.5 35.7 - 48.1 fL [facility] NRBC abs 0.06(H) 0.00 - 0.01 K/cumm [facility] Blood 06/06/2025 7:52 PM CDT 06/06/2025 8:05 PM CDT Kelly SCOTT LAB BLOOD ORDERABLES Fin al Result Performing Organization Address [facility] de Phone Number [facility] Department [place] [address] * (ABNORMAL) Phosphorus (06/06/2025 7:52 PM CDT) Pathologist [facility] Phosphorus, pl 2.2(L) 2.3 - 4.5 mg/dL Blood 06/06/2025 7:52 PM CDT 06/06/2025 8:05 PM CDT Kelly SCOTT LAB BLOOD ORDERABLES Fin al Result [facility] [place] [address] * Magnesium (06/06/2025 7:52 PM CDT) Pathologist [facility] Magnesium 1.7 1.4 - 2.5 mg/dL Blood 06/06/2025 7:52 PM CDT 06/06/2025 8:05 PM CDT Kelly SCOTT LAB BLOOD ORDERABLES Fin al Result [facility] Department [place] [address] * (ABNORMAL) Basic metabolic panel (06/06/2025 7:52 PM CDT) Sodium 139 135 - 145 mmol/L Potassium, pl 4.4 3.3 - 4.9 mmol/L [facility] Chloride 107 97 - 110 mmol/L [facility] CO2 22 22 - 32 mmol/L [facility] Anion gap 10 2 - 15 mmol/L [facility] BUN 11 6 - 25 mg/dL [facility] Creatinine 0.46(L) 0.60 - 1.10 mg/dL [facility] Glucose 283(H) 70 - 199 mg/dL [facility] Comment: Interpretive Data Fasting glucose >/= 126 [...] 2022. Calcium 8.5 8.5 - 10.3 mg/dL [facility] Blood 06/06/2025 7:52 PM CDT 06/06/2025 8:05 PM CDT Kelly SCOTT LAB BLOOD ORDERABLES Fin al Result [facility] Department [place] [address] * (ABNORMAL) POCT glucose (06/06/2025 7:16 PM CDT) Glucose, POC 273(H) 70 - 199 mg/dL Comment:Glu2: RN/MD Notified Glucose comment 1 Glu2: RN/MD Notified [facility] Blood 06/06/2025 7:16 PM CDT 06/06/2025 7:16 PM CDT us Dari Bojorquez MD LAB POCT ORDERABLES - DEVICE Final Result [facility] [place] [address] * Critical Care (06/06/2025 7:00 PM CDT) [...] plan with the ICU team and other medical/creative consultant staff, making frequent assessments and decisions [...] plan with the patient's team and other medical/creative consultant staff. This time was in addition [...] LAB POCT ORDERABLES - DEVICE Final Result [facility] Department [place] [address] * (ABNORMAL) POCT glucose (06/06/2025 11:30 AM CDT) Glucose, POC 278(H) 70 - 199 mg/dL Comment:Glu2: RN/ Notified Glucose comment 1 Glu2: RN/ Notified [facility] Blood 06/06/2025 11:3 0 AM CDT 06/06/2025 11:30 AM CDT Dari Bojorquez MD LAB POCT ORDERABLES - DEVICE Final Result Performing Organization Address [facility] [place] [address] * (ABNORMAL) POCT glucose (06/06/2025 7:25 AM CDT) Glucose, POC 257(H) 70 - 199 mg/dL Comment:Glu2: RN/MD Notified Glucose comment 1 Glu2: RN/MD Notified [facility] Blood 06/06/2025 7:25 AM CDT 06/06/2025 7:25 AM CDT us Dari Bojorquez MD LAB POCT ORDERABLES - DEVICE Final Result Performing Organization Address [facility] [place] [address] * (ABNORMAL) POCT glucose (06/06/2025 3:52 AM CDT) Glucose, POC 219(H) 70 - 199 mg/dL Blood 06/06/2025 3:52 AM CDT 06/06/2025 3:52 AM CDT us Dari Bojorquez MD LAB POCT ORDERABLES - DEVICE Final Result Performing Organization Address [facility] de Phone Number [facility] [place] [address] * (ABNORMAL) POCT glucose (06/06/2025 2:24 AM CDT) Glucose, POC 237(H) 70 - 199 mg/dL Blood 06/06/2025 2:24 AM CDT 06/06/2025 2:24 AM CDT us Dari Bojorquez MD LAB POCT ORDERABLES - DEVICE Final Result Performing Organization Address [facility] Co de Phone Number [facility] [place] [address] * (ABNORMAL) POCT glucose (06/05/2025 11:59 PM CDT) Glucose, POC 277(H) 70 - 199 mg/dL Blood 06/05/2025 11:5 9 PM CDT 06/05/2025 11:59 PM CDT us Dari Bojorquez MD LAB POCT ORDERABLES - DEVICE Final Result Performing Organization Address [facility] Co de Phone Number [facility] [place] [address] * (ABNORMAL) POCT glucose (06/05/2025 11:09 PM CDT) [facility] Glucose, POC 280(H) 70 - 199 mg/dL Comment:Glu2: RN/MD Notified Glucose comment 1 Glu2: RN/MD Notified [facility] Blood 06/05/2025 11:0 9 PM CDT 06/05/2025 11:09 PM CDT us Dari Bojorquez MD LAB POCT ORDERABLES - DEVICE Final Result Performing Organization Address [facility] de Phone Number [facility] [place] [address] * eGFR (06/05/2025 9:06 PM CDT) [facility] eGFR >90 >=60 mL/min/1. 73 m2 [...] SCOTT LAB BLOOD ORDERABLES Fin al Result [facility] [place] [address] * (ABNORMAL) CBC without differential (06/05/2025 9:06 PM CDT) WBC 17.75(H) 3.80 - 9.90 K/cumm Hgb 11.5(L) 11.9 - 15.5 g/dL [facility] Hct 34.3(L) 35.6 - 45.5 % [facility] Plt 378 150 - 400 K/cumm [facility] MPV 10.4 9.1 - 12.3 fL [facility] RBC 4.05 3.90 - 5.20 M/cumm [facility] MCV 84.7 81.3 - 96.4 fL [facility] MCH 28.4 27.1 - 33.3 pg [facility] MCHC 33.5 32.3 - 35.7 g/dL [facility] RDW CV 14.3 11.1 - 14.9 % [facility] RDW SD 44.3 35.7 - 48.1 fL [facility] NRBC abs 0.03(H) 0.00 - 0.01 K/cumm [facility] Blood 06/05/2025 9:06 PM CDT 06/05/2025 9:40 PM CDT Kelly SCOTT LAB BLOOD ORDERABLES Fin al Result Performing Organization Address [facility] de Phone Number [facility] [place] [address] * Phosphorus (06/05/2025 9:06 PM CDT) Phosphorus, pl 2.6 2.3 - 4.5 mg/dL Blood 06/05/2025 9:06 PM CDT 06/05/2025 9:39 PM CDT Kelly SCOTT LAB BLOOD ORDERABLES Fin al Result Performing Organization Address [facility] [place] [address] * Magnesium (06/05/2025 9:06 PM CDT) Magnesium 2.1 1.4 - 2.5 mg/dL Blood 06/05/2025 9:06 PM CDT 06/05/2025 9:39 PM CDT Kelly SCOTT LAB BLOOD ORDERABLES Fin al Result Performing Organization Address [facility] Phone Number [facility] [place] [address] * (ABNORMAL) Hemoglobin A1c (06/05/2025 9:06 PM CDT) Hgb A1C 11.0(H) 4.0 - 5.6 % Estimated Average Glucose 269 mg/dL [facility] Comment: The ADA recommends reporting an estimated [...] ORDERABLES Fin al Result Performing Organization Address [facility] Co de Phone Number [facility] [employer] [place] [address] * (ABNORMAL) Basic metabolic panel (06/05/2025 9:06 PM CDT) [facility] Sodium 137 135 - 145 mmol/L Potassium, pl 4.6 3.3 - 4.9 mmol/L [facility] Chloride 103 97 - 110 mmol/L [facility] CO2 23 22 - 32 mmol/L [facility] Anion gap 11 2 - 15 mmol/L [facility] BUN 15 6 - 25 mg/dL [facility] Creatinine 0.73 0.60 - 1.10 mg/dL [facility] Glucose 356(H) 70 - 199 mg/dL [facility] Comment: Interpretive Data Fasting glucose >/= 126 [...] 2022. Calcium 8.4(L) 8.5 - 10.3 mg/dL [facility] Blood 06/05/2025 9:06 PM CDT 06/05/2025 9:39 PM CDT Kelly SCOTT LAB BLOOD ORDERABLES Fin al Result Performing Organization Address [facility] Co de Phone Number [facility] Department [place] [address] * (ABNORMAL) POCT glucose (06/05/2025 8:48 PM CDT) Glucose, POC 341(H) 70 - 199 mg/dL Blood 06/05/2025 8:48 PM CDT 06/05/2025 8:48 PM CDT us Dari Bojorquez MD LAB POCT ORDERABLES - DEVICE Final Result VIKKI BJ [facility] Department [place] [address] * Critical Care (06/05/2025 6:49 PM CDT) [...] plan with the ICU team and other medical/creative consultant staff, making frequent assessments and decisions [...] (ABNORMAL) POCT glucose (06/05/2025 6:33 PM CDT) [facility] Glucose, POC 255(H) 70 - 199 mg/dL Blood 06/05/2025 6:33 PM CDT 06/05/2025 6:33 PM CDT us Dari Bojorquez MD LAB POCT ORDERABLES - DEVICE Final Result [facility] Department [place] [address] * Critical Care (06/05/2025 5:01 PM CDT) [...] plan with the ICU team and other medical/creative consultant staff, making frequent assessments and decisions [...] PM CDT Narrative 06/05/2025 2:42 PM CDT [facility] [place] [address] Transthoracic Echocardiographic Report Patient Name: DORIAN MONTIEL J : 1975 (49y 7m) Gender: F Study Date: 06/05/2025 13:34:27 Ht(Inch): 61 Wt(Lb): 313.94 BSA: 2.48 Program Project Analyst: Iwona Couch RDCS Location: [id number] Order Provider: DARI BOJORQUEZ Heart Rate: 87 [...] Procedure Note Alonso Russell MD - 06/05/2025 [facility] [place] [address] Transthoracic Echocardiographic Report Patient Name: DORIAN MONTIEL J : 1975 (49y 7m) Gender: F Study Date: 06/05/2025 13:34:27 Ht(Inch): 61 Wt(Lb): 313.94 BSA: 2.48 Program Project Analyst: Iwona Couch RDCS Location: [id number] Order Provider:DARI BOJORQUEZ Heart Rate: 87 BMI: [...] LA Length 2C 4.85 cm MV Decel Irlf297.09 msec [ 104.00 - 258.00 ] LA [...] POCT ORDERABLES - DEVICE Final Result VIKKI [facility] [place] [address] * (ABNORMAL) POCT glucose (06/05/2025 12:55 PM CDT) Glucose, POC 203(H) 70 - 199 mg/dL Blood 06/05/2025 12:5 5 PM CDT 06/05/2025 12:55 PM CDT us Dari Bojorquez MD LAB POCT ORDERABLES - DEVICE Final Result Performing Organization Address [facility] de Phone Number [facility] [place] [address] * POCT glucose (06/05/2025 12:07 PM CDT) Glucose, POC 197 70 - 199 mg/dL Blood 06/05/2025 12:0 7 PM CDT 06/05/2025 12:07 PM CDT us Dari Bojorquez MD LAB POCT ORDERABLES - DEVICE Final Result Performing Organization Address [facility] de Phone Number [facility] [place] [address] * POCT glucose (06/05/2025 11:09 AM CDT) Glucose, POC 152 70 - 199 mg/dL Blood 06/05/2025 11:0 9 AM CDT 06/05/2025 11:09 AM CDT us Dari Bojorquez MD LAB POCT ORDERABLES - DEVICE Final Result Performing Organization Address [facility] de Phone Number [facility] [place] [address] * POCT glucose (06/05/2025 10:03 AM CDT) Glucose, POC 172 70 - 199 mg/dL Blood 06/05/2025 10:0 3 AM CDT 06/05/2025 10:03 AM CDT Dari Bojorquez MD LAB POCT ORDERABLES - DEVICE Final Result Performing Organization Address City[facility] Co de Phone Number [facility] [place] [address] * POCT glucose (06/05/2025 8:55 AM CDT) Glucose, POC 137 70 - 199 mg/dL Blood 06/05/2025 8:55 AM CDT 06/05/2025 8:55 AM CDT us Dari Bojorquez MD LAB POCT ORDERABLES - DEVICE Final Result Performing Organization Address [facility] [place] [address] * POCT glucose (06/05/2025 8:03 AM CDT) Glucose, POC 110 70 - 199 mg/dL Blood 06/05/2025 8:03 AM CDT 06/05/2025 8:03 AM CDT us Dari Bojorquez MD LAB POCT ORDERABLES - DEVICE Final Result Performing Organization Address [facility] Co de Phone Number [facility] [place] [address] * POCT glucose (06/05/2025 7:26 AM CDT) Glucose, POC 134 70 - 199 mg/dL Blood 06/05/2025 7:26 AM CDT 06/05/2025 7:26 AM CDT Dari Bojorquez MD LAB POCT ORDERABLES - DEVICE Final Result Performing Organization Address [facility] Co de Phone Number [facility] [place] [address] * POCT glucose (06/05/2025 6:10 AM CDT) Glucose, POC 128 70 - 199 mg/dL Blood 06/05/2025 6:10 AM CDT 06/05/2025 6:10 AM CDT Dari Bojorquez MD LAB POCT ORDERABLES - DEVICE Final Result Performing Organization Address [facility] Co de Phone Number [facility] [place] [address] * POCT glucose (06/05/2025 4:59 AM CDT) Glucose, POC 99 70 - 199 mg/dL Blood 06/05/2025 4:59 AM CDT 06/05/2025 4:59 AM CDT us Dari Bojorquez MD LAB POCT ORDERABLES - DEVICE Final Result Performing Organization Address [facility] Co de Phone Number [facility] [place] [address] * POCT glucose (06/05/2025 4:02 AM CDT) Glucose, POC 98 70 - 199 mg/dL Blood 06/05/2025 4:02 AM CDT 06/05/2025 4:02 AM CDT Dari Bojorquez MD LAB POCT ORDERABLES - DEVICE Final Result Performing Organization Address [facility] Co de Phone Number [facility] [place] [address] * POCT glucose (06/05/2025 2:08 AM CDT) Glucose, POC 108 70 - 199 mg/dL Blood 06/05/2025 2:08 AM CDT 06/05/2025 2:08 AM CDT Dari Bojorquez MD LAB POCT ORDERABLES - DEVICE Final Result Performing Organization Address [facility] Co de Phone Number [facility] [place] [address] * POCT glucose (06/05/2025 12:08 AM CDT) Glucose, POC 121 70 - 199 mg/dL Blood 06/05/2025 12:0 8 AM CDT 06/05/2025 12:08 AM CDT us Dari Bojorquez MD LAB POCT ORDERABLES - DEVICE Final Result Performing Organization Address [facility] de Phone Number [facility] [place] [address] * POCT glucose (06/04/2025 10:53 PM CDT) Glucose, POC 114 70 - 199 mg/dL Blood 06/04/2025 10:5 3 PM CDT 06/04/2025 10:53 PM CDT us Dari Bojorquez MD LAB POCT ORDERABLES - DEVICE Final Result Performing Organization Address [facility] [place] [address] * POCT glucose (06/04/2025 10:10 PM CDT) Glucose, POC 132 70 - 199 mg/dL Blood 06/04/2025 10:1 0 PM CDT 06/04/2025 10:10 PM CDT Dari Bojorquez MD LAB POCT ORDERABLES - DEVICE Final Result Performing Organization Address [facility] Co de Phone [facility] [place] [address] * eGFR (06/04/2025 9:35 PM CDT) [facility] eGFR >90 >=60 mL/min/1. 73 m2 [...] BLOOD ORDERABLES Final Result Performing Organization Address [facility] Co de Phone Number [facility] [place] [address] * (ABNORMAL) CBC without differential (06/04/2025 9:35 PM CDT) [facility] WBC 23.38(H) 3.80 - 9.90 K/cumm Hgb 11.4(L) 11.9 - 15.5 g/dL [facility] Hct 33.4(L) 35.6 - 45.5 % [facility] Plt 360 150 - 400 K/cumm [facility] MPV 10.6 9.1 - 12.3 fL [facility] RBC 3.97 3.90 - 5.20 M/cumm [facility] MCV 84.1 81.3 - 96.4 fL [facility] MCH 28.7 27.1 - 33.3 pg [facility] MCHC 34.1 32.3 - 35.7 g/dL [facility] RDW CV 14.2 11.1 - 14.9 % [facility] RDW SD 43.8 35.7 - 48.1 fL [facility] NRBC abs 0.00 0.00 - 0.01 K/cumm [facility] Blood 06/04/2025 9:35 PM CDT 06/04/2025 10:47 PM CDT Dari Bojorquez MD LAB BLOOD ORDERABLES Final Result Performing Organization Address [facility]/ZIP Co de Phone Number [facility] Department [place] [address] * Phosphorus (06/04/2025 9:35 PM CDT) Phosphorus, pl 4.0 2.3 - 4.5 mg/dL Blood 06/04/2025 9:35 PM CDT 06/04/2025 10:47 PM CDT Dari Bojorquez MD LAB BLOOD ORDERABLES Final Result [facility] Department [place] [address] * Magnesium (06/04/2025 9:35 PM CDT) Magnesium 2.5 1.4 - 2.5 mg/dL Blood 06/04/2025 9:35 PM CDT 06/04/2025 10:47 PM CDT Dari Bojorquez MD LAB BLOOD ORDERABLES Final Result VIKKI [facility] Department [place] [address] * (ABNORMAL) Basic metabolic panel (06/04/2025 9:35 PM CDT) Sodium 137 135 - 145 mmol/L Potassium, pl 4.5 3.3 - 4.9 mmol/L [facility] Chloride 104 97 - 110 mmol/L [facility] CO2 24 22 - 32 mmol/L [facility] Anion gap 9 2 - 15 mmol/L [facility] BUN 18 6 - 25 mg/dL [facility] Creatinine 0.59(L) 0.60 - 1.10 mg/dL [facility] Glucose 128 70 - 199 mg/dL [facility] Comment: Interpretive Data Fasting glucose >/= 126 [...] 2022. Calcium 8.7 8.5 - 10.3 mg/dL [facility] Blood 06/04/2025 9:35 PM CDT 06/04/2025 10:47 PM CDT us Dari Bojorquez MD LAB BLOOD ORDERABLES Final Result Performing Organization Address [facility]/ZIP Co de Phone Number VIKKI [facility] Department [place] [address] * POCT glucose (06/04/2025 8:56 PM CDT) Glucose, POC 153 70 - 199 mg/dL Blood 06/04/2025 8:5 6 PM CDT 06/04/2025 8:56 PM CDT us Dari Bojorquez MD LAB POCT ORDERABLES - DEVICE Final Result Performing Organization Address [facility] Co de Phone Number VIKKI [facility] [place] [address] * POCT glucose (06/04/2025 8:08 PM CDT) Glucose, POC 129 70 - 199 mg/dL Blood 06/04/2025 8:08 PM CDT 06/04/2025 8:08 PM CDT Dari Bojorquez MD LAB POCT ORDERABLES - DEVICE Final Result Performing Organization Address [facility] Co de Phone Number [facility] [place] [address] * Critical Care (06/04/2025 6:15 PM CDT) [...] plan with the ICU team and other medical/creative consultant staff, making frequent assessments and decisions [...] - DEVICE Final Result CERNER B[facility] Department [place] [address] * Critical Care (06/04/2025 4:36 PM CDT) [...] plan with the ICU team and other medical/creative consultant staff, making frequent assessments and decisions [...] - DEVICE Final Result Performing Organization Address [facility]/ZIP Co de Phone Number [facility] Department [place] [address] * (ABNORMAL) Tissue aerobic and anaerobic culture and gram stain Tissue Groin, right (06/04/2025 3:55PM CDT) Pathologist [facility] Direct Specimen Exam Stain: Rare polymorphonuclear leukocytes seen. Rare Gram Positive Cocci Rare Gram Negative Bacilli Report Final Report: Rare Mixed anaerobic microorganisms (.) [facility] Organism MIXED ANAEROBIC MICROORGANISMS [facility] Tissue (Groin, right) 06/04/2025 3:55 PM CDT 06/04/2025 5:48 PM CDT Narrative [facility] - 06/13/2025 2:37 PM CDT Right groin tissue Specimen collected in the operating room. Testing performed by [facility] ([phone]) Specimens submitted from normally sterile body sites [...] - GEN ERAL ORDERABLES Final Result VIKKI [facility] Department [place] [address] * POCT glucose (06/04/2025 3:33 PM CDT) Glucose, POC 125 70 - 199 mg/dL Blood 06/04/2025 3:33 PM CDT 06/04/2025 3:33 PM CDT us Dari Bojorquez MD LAB POCT ORDERABLES - DEVICE Final Result Performing Organization Address [facility] Co de Phone Number VIKKI [facility] [place] [address] * [place] AN ELECTIVE ENDOTRACHEAL AIRWAY, [place] 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 (06/04/2025 3:31 PM CDT) Narrative Elvis Encinas CRNA - 06/04/2025 3:31 PM CDT Elvis Encinas CRNA 06/04/2025 3:31 PM Airway Patient location: OR Urgency: elective Date/time: 06/04/2025 3:07 PM Indications for airway management: anesthesia Difficult airway: no Staff: Supervising provider: Edgar Blank MD Placed by: ZANJERO: Elvis Encinas CRNA Emergent airway documentation: Risks [...] - DEVICE Final Result Performing Organization Address [facility] Co de Phone Number [facility] [place] [address] * POCT glucose (06/04/2025 1:03 PM CDT) Glucose, POC 140 70 - 199 mg/dL Blood 06/04/2025 1:03 PM CDT 06/04/2025 1:03 PM CDT Dari Bojorquez MD LAB POCT ORDERABLES - DEVICE Final Result Performing Organization Address [facility] Co de Phone Number [facility] [place] [address] * POCT glucose (06/04/2025 12:05 PM CDT) Glucose, POC 155 70 - 199 mg/dL Blood 06/04/2025 12:0 5 PM CDT 06/04/2025 12:05 PM CDT Dari Bojorquez MD LAB POCT ORDERABLES - DEVICE Final Result Performing Organization Address [facility] Co de Phone Number [facility] [place] [address] * (ABNORMAL) POCT glucose (06/04/2025 11:08 AM CDT) Glucose, POC 216(H) 70 - 199 mg/dL Blood 06/04/2025 11:0 8 AM CDT 06/04/2025 11:08 AM CDT Dari Bojorquez MD LAB POCT ORDERABLES - DEVICE Final Result Performing Organization Address [facility] Co de Phone Number [facility] [place] [address] * POCT glucose (06/04/2025 10:01 AM CDT) Pathologist [facility] Glucose, POC 198 70 - 199 mg/dL Blood 06/04/2025 10:0 1 AM CDT 06/04/2025 10:01 AM CDT us Dari Bojorquez MD LAB POCT ORDERABLES - DEVICE Final Result Performing Organization Address [facility] Co de Phone Number [facility] [place] [address] * (ABNORMAL) POCT glucose (06/04/2025 9:22 AM CDT) Glucose, POC 244(H) 70 - 199 mg/dL Blood 06/04/2025 9:22 AM CDT 06/04/2025 9:22 AM CDT Dari Bojorquez MD LAB POCT ORDERABLES - DEVICE Final Result Performing Organization Address [facility] Co de Phone Number [facility] [place] [address] * eGFR (06/04/2025 8:24 AM CDT) Pathologist [facility] eGFR >90 >=60 mL/min/1. 73 m2 Comment: [...] Bojorquez MD LAB BLOOD ORDERABLES Final Result [facility] Department [place] [address] * (ABNORMAL) CBC without differential (06/04/2025 8:24 AM CDT) WBC 23.18(H) 3.80 - 9.90 K/cumm Hgb 11.3(L) 11.9 - 15.5 g/dL [facility] Hct 33.3(L) 35.6 - 45.5 % [facility] Plt 350 150 - 400 K/cumm [facility] MPV 10.6 9.1 - 12.3 fL [facility] RBC 3.96 3.90 - 5.20 M/cumm [facility] MCV 84.1 81.3 - 96.4 fL [facility] MCH 28.5 27.1 - 33.3 pg [facility] MCHC 33.9 32.3 - 35.7 g/dL [facility] RDW CV 14.1 11.1 - 14.9 % [facility] RDW SD 43.5 35.7 - 48.1 fL [facility] NRBC abs 0.02(H) 0.00 - 0.01 K/cumm [facility] Blood 06/04/2025 8:24 AM CDT 06/04/2025 8:36 AM CDT us Dari Bojorquez MD LAB BLOOD ORDERABLES Final Result Performing Organization Address [facility] Co de Phone Number [facility] [place] [address] * Phosphorus (06/04/2025 8:24 AM CDT) Pathologist [facility] Phosphorus, pl 3.8 2.3 - 4.5 mg/dL Blood 06/04/2025 8:24 AM CDT 06/04/2025 8:36 AM CDT us Dari Bojorquez MD LAB BLOOD ORDERABLES Final Result Performing Organization Address [facility] de Phone Number [facility] [place] [address] * (ABNORMAL) Magnesium (06/04/2025 8:24 AM CDT) Magnesium 2.7(H) 1.4 - 2.5 mg/dL Blood 06/04/2025 8:24 AM CDT 06/04/2025 8:36 AM CDT Dari Bojorquez MD LAB BLOOD ORDERABLES Final Result Performing Organization Address [facility] Co de Phone Number [facility] [place] [address] * (ABNORMAL) Basic metabolic panel (06/04/2025 8:24 AM CDT) Sodium 135 135 - 145 mmol/L Potassium, pl 4.7 3.3 - 4.9 mmol/L [facility] Chloride 104 97 - 110 mmol/L [facility] CO2 21(L) 22 - 32 mmol/L [facility] Anion gap 10 2 - 15 mmol/L [facility] BUN 24 6 - 25 mg/dL [facility] Creatinine 0.80 0.60 - 1.10 mg/dL [facility] Glucose 234(H) 70 - 199 mg/dL [facility] Comment: Interpretive Data Fasting glucose >/= 126 [...] 2022. Calcium 8.1(L) 8.5 - 10.3 mg/dL [facility] Blood 06/04/2025 8:24 AM CDT 06/04/2025 8:36 AM CDT us Dari Bojorquez MD LAB BLOOD ORDERABLES Final Result Performing Organization Address [facility]/ZIP Co de Phone Number [facility] [place] [address] * (ABNORMAL) POCT glucose (06/04/2025 7:36 AM CDT) Glucose, POC 219(H) 70 - 199 mg/dL Blood 06/04/2025 7:36 AM CDT 06/04/2025 7:36 AM CDT Dari Bojorquez MD LAB POCT ORDERABLES - DEVICE Final Result Performing Organization Address [facility]ZIP Co de Phone Number [facility] Department [place] [address] * (ABNORMAL) POCT glucose (06/04/2025 3:57 AM CDT) Glucose, POC 219(H) 70 - 199 mg/dL Blood 06/04/2025 3:5 7 AM CDT 06/04/2025 3:57 AM CDT Dari Bojorquez MD LAB POCT ORDERABLES - DEVICE Final Result Performing Organization Address [facility] [place] [address] * (ABNORMAL) POCT glucose (06/03/2025 11:33 PM CDT) Glucose, POC 258(H) 70 - 199 mg/dL Blood 06/03/2025 11:3 3 PM CDT 06/03/2025 11:33 PM CDT Dari Bojorquez MD LAB POCT ORDERABLES - DEVICE Final Result Performing Organization Address [facility] de Phone Number [facility] [place] [address] * eGFR (06/03/2025 10:05 PM CDT) eGFR [...] BLOOD ORDERABLES Final Result Performing Organization Address [facility]/ZIP Co de Phone Number [facility] [place] [address] * Thyroid Function [place] (06/03/2025 10:05 PM CDT) Pathologist [facility] TSH 0.70 0.30 - 4.20 mcIUnit/mL Blood 06/03/2025 10:0 5 PM CDT 06/03/2025 10:20 PM CDT Dari Bojorquez MD LAB BLOOD ORDERABLES Final Result Performing Organization Address [facility] Co de Phone Number [facility] [place] [address] * (ABNORMAL) CBC without differential (06/03/2025 10:05 PM CDT) Pathologist [facility] WBC 24.56(H) 3.80 - 9.90 K/cumm Hgb 11.5(L) 11.9 - 15.5 g/dL [facility] Hct 33.5(L) 35.6 - 45.5 % [facility] Plt 342 150 - 400 K/cumm [facility] MPV 10.7 9.1 - 12.3 fL [facility] RBC 4.00 3.90 - 5.20 M/cumm [facility] MCV 83.8 81.3 - 96.4 fL [facility] MCH 28.8 27.1 - 33.3 pg [facility] MCHC 34.3 32.3 - 35.7 g/dL [facility] RDW CV 13.6 11.1 - 14.9 % [facility] RDW SD 42.4 35.7 - 48.1 fL [facility] NRBC abs 0.04(H) 0.00 - 0.01 K/cumm [facility] Blood 06/03/2025 10:0 5 PM CDT 06/03/2025 10:20 PM CDT Drai Bojorquez MD LAB BLOOD ORDERABLES Final Result Performing Organization Address City/[facility]/ZIP Co de Phone Number [facility] [place] [address] * Phosphorus (06/03/2025 10:05 PM CDT) Pathologist [facility] Phosphorus, pl 3.6 2.3 - 4.5 mg/dL Blood 06/03/2025 10:0 5 PM CDT 06/03/2025 10:20 PM CDT Dari Bojorquez MD LAB BLOOD ORDERABLES Final Result Performing Organization Address [facility] Co de Phone Number [facility] [place] [address] * (ABNORMAL) Magnesium (06/03/2025 10:05 PM CDT) Pathologist [facility] Magnesium 2.9(H) 1.4 - 2.5 mg/dL Blood 06/03/2025 10:0 5 PM CDT 06/03/2025 10:20 PM CDT Dari Bojorquez MD LAB BLOOD ORDERABLES Final Result Performing Organization Address [facility]/ZIP Co de Phone Number [facility] Department [place] [address] * (ABNORMAL) Basic metabolic panel (06/03/2025 10:05 PM CDT) Sodium 133(L) 135 - 145 mmol/L Potassium, pl 4.6 3.3 - 4.9 mmol/L [facility] Chloride 99 97 - 110 mmol/L [facility] CO2 25 22 - 32 mmol/L [facility] Anion gap 9 2 - 15 mmol/L [facility] BUN 29(H) 6 - 25 mg/dL [facility] Creatinine 1.07 0.60 - 1.10 mg/dL [facility] Glucose 296(H) 70 - 199 mg/dL [facility] Comment: Interpretive Data Fasting glucose >/= 126 [...] 2022. Calcium 8.7 8.5 - 10.3 mg/dL [facility] Blood 06/03/2025 10:0 5 PM CDT 06/03/2025 10:20 PM CDT us Dari Bojorquez MD LAB BLOOD ORDERABLES Final Result [facility] Department [place] [address] * Critical Care (06/03/2025 7:24 PM CDT) [...] plan with the ICU team and other medical/creative consultant staff, making frequent assessments and decisions [...] POCT ORDERABLES - DEVICE Final Result [facility] Department [place] [address] * (ABNORMAL) POCT glucose (06/03/2025 3:30 PM CDT) Glucose, POC 238(H) 70 - 199 mg/dL Blood 06/03/2025 3:30 PM CDT 06/03/2025 3:30 PM CDT us Dari Bojorquez MD LAB POCT ORDERABLES - DEVICE Final Result Performing Organization Address [facility]/ZIP Co de Phone Number VIKKI NASSAR [facility] Department [place] [address] * Critical Care (06/03/2025 3:00 PM CDT) [...] plan with the ICU team and other medical/creative consultant staff, making frequent assessments and decisions [...] - DEVICE Final Result Performing Organization Address [facility]/ZIP Co de Phone Number VIKKI NASSAR [facility] [place] [address] * POCT glucose (06/03/2025 1:02 PM CDT) Glucose, POC 189 70 - 199 mg/dL Blood 06/03/2025 1:02 PM CDT 06/03/2025 1:02 PM CDT Dari Bojorquez MD LAB POCT ORDERABLES - DEVICE Final Result Performing Organization Address [facility]/[place] [address] * POCT glucose (06/03/2025 12:02 PM CDT) Glucose, POC 184 70 - 199 mg/dL Blood 06/03/2025 12:0 2 PM CDT 06/03/2025 12:02 PM CDT us Dari Bojorquez MD LAB POCT ORDERABLES - DEVICE Final Result Performing Organization Address [facility] [address] * POCT glucose (06/03/2025 11:13 AM CDT) Glucose, POC 192 70 - 199 mg/dL Blood 06/03/2025 11:1 3 AM CDT 06/03/2025 11:13 AM CDT Dari Bojorquez MD LAB POCT ORDERABLES - DEVICE Final Result Performing Organization Address [facility] [place] [address] * POCT glucose (06/03/2025 8:53 AM CDT) Glucose, POC 120 70 - 199 mg/dL Blood 06/03/2025 8:53 AM CDT 06/03/2025 8:53 AM CDT us Dari Bojorquez MD LAB POCT ORDERABLES - DEVICE Final Result Performing Organization Address [facility] de Phone Number [facility] [place] [address] * POCT glucose (06/03/2025 6:53 AM CDT) Glucose, POC 113 70 - 199 mg/dL Blood 06/03/2025 6:53 AM CDT 06/03/2025 6:53 AM CDT Dari Bojorquez MD LAB POCT ORDERABLES - DEVICE Final Result Performing Organization Address [facility] de Phone Number [facility] [place] [address] * POCT glucose (06/03/2025 4:54 AM CDT) Glucose, POC 129 70 - 199 mg/dL Blood 06/03/2025 4:54 AM CDT 06/03/2025 4:54 AM CDT Dari Bojorquez MD LAB POCT ORDERABLES - DEVICE Final Result Performing Organization Address [facility] de Phone Number [facility] [place] [address] * POCT glucose (06/03/2025 3:51 AM CDT) Glucose, POC 131 70 - 199 mg/dL Blood 06/03/2025 3:51 AM CDT 06/03/2025 3:51 AM CDT Dari Bojorquez MD LAB POCT ORDERABLES - DEVICE Final Result Performing Organization Address [facility] Co de Phone Number [facility] [employer] [place] [address] * POCT glucose (06/03/2025 2:51 AM CDT) Glucose, POC 140 70 - 199 mg/dL Blood 06/03/2025 2:51 AM CDT 06/03/2025 2:51 AM CDT Dari Bojorquez MD LAB POCT ORDERABLES - DEVICE Final Result Performing Organization Address [facility] Co de Phone Number [facility] [place] [address] * POCT glucose (06/03/2025 12:57 AM CDT) Glucose, POC 112 70 - 199 mg/dL Blood 06/03/2025 12:5 7 AM CDT 06/03/2025 12:57 AM CDT Dari Bojorquez MD LAB POCT ORDERABLES - DEVICE Final Result Performing Organization Address [facility] Co de Phone Number [facility] [place] [address] * POCT glucose (06/02/2025 11:53 PM CDT) Glucose, POC 115 70 - 199 mg/dL Blood 06/02/2025 11:5 3 PM CDT 06/02/2025 11:53 PM CDT Dari Bojorquez MD LAB POCT ORDERABLES - DEVICE Final Result Performing Organization Address [facility] Co de Phone Number [facility] [place] [address] * POCT glucose (06/02/2025 10:55 PM CDT) Glucose, POC 114 70 - 199 mg/dL Blood 06/02/2025 10:5 5 PM CDT 06/02/2025 10:55 PM CDT us Dari Bojorquez MD LAB POCT ORDERABLES - DEVICE Final Result VIKKI [facility] [place] [address] * POCT glucose (06/02/2025 9:56 PM CDT) Glucose, POC 113 70 - 199 mg/dL Blood 06/02/2025 9:56 PM CDT 06/02/2025 9:56 PM CDT us Dari Bojorquez MD LAB POCT ORDERABLES - DEVICE Final Result Performing Organization Address [facility] [place] [address] * (ABNORMAL) eGFR (06/02/2025 9:54 PM CDT) [...] Bojorquez MD LAB BLOOD ORDERABLES Final Result [facility] Department [place] [address] * (ABNORMAL) CBC without differential (06/02/2025 9:54 PM CDT) WBC 28.16(H) 3.80 - 9.90 K/cumm Hgb 10.8(L) 11.9 - 15.5 g/dL [facility] Hct 33.0(L) 35.6 - 45.5 % [facility] Plt 335 150 - 400 K/cumm [facility] MPV 10.9 9.1 - 12.3 fL [facility] RBC 3.83(L) 3.90 - 5.20 M/cumm [facility] MCV 86.2 81.3 - 96.4 fL [facility] MCH 28.2 27.1 - 33.3 pg [facility] MCHC 32.7 32.3 - 35.7 g/dL [facility] RDW CV 13.6 11.1 - 14.9 % [facility] RDW SD 42.4 35.7 - 48.1 fL [facility] NRBC abs 0.00 0.00 - 0.01 K/cumm [facility] Blood 06/02/2025 9:54 PM CDT 06/02/2025 10:23 PM CDT us Dari Bojorquez MD LAB BLOOD ORDERABLES Final Result [id number] [place] [address] * (ABNORMAL) Phosphorus (06/02/2025 9:54 PM CDT) Pathologist [facility] Phosphorus, pl 5.4(H) 2.3 - 4.5 mg/dL Blood 06/02/2025 9:54 PM CDT 06/02/2025 10:23 PM CDT Dari Bojorquez MD LAB [place] [address] * Magnesium (06/02/2025 9:54 PM CDT) [facility] Magnesium 2.4 1.4 - 2.5 mg/dL Blood 06/02/2025 9:54 PM CDT 06/02/2025 10:23 PM CDT Dari Bojorquez MD LAB BLOOD ORDERABLES Final Result Performing Organization Address [facility] [place] [address] * (ABNORMAL) Lipid panel (06/02/2025 9:54 PM CDT) [facility] Cholesterol 105 30 - 199 mg/dL [...] revised on 2018. Triglycerides 178(H) <=149 mg/dL [facility] Comment: Interpretive Data Ages < [...] revised on 2018. HDL 29(L) >=40 mg/dL [facility] Comment: Interpretive Data Ages < [...] on 2018. LDL, calculated 46 <=129 mg/dL [facility] Comment: Interpretive Data Ages < [...] revised on 2024. Non-HDL Cholesterol 76 mg/dL [facility] Comment: Interpretive Data Ages < [...] last revised on 2018. Chol/HDL ratio 4 [facility] Blood 06/02/2025 9:54 PM CDT 06/02/2025 10:23 PM CDT Dari Bojorquez MD LAB BLOOD ORDERABLES Final Result [facility] Department [place] [address] * (ABNORMAL) Basic metabolic panel (06/02/2025 9:54 PM CDT) Sodium 138 135 - 145 mmol/L Potassium, pl 4.0 3.3 - 4.9 mmol/L [facility] Chloride 102 97 - 110 mmol/L [facility] CO2 21(L) 22 - 32 mmol/L [facility] Anion gap 15 2 - 15 mmol/L [facility] BUN 35(H) 6 - 25 mg/dL [facility] Creatinine 1.45(H) 0.60 - 1.10 mg/dL [facility] Glucose 104 70 - 199 mg/dL [facility] Comment: Interpretive Data Fasting glucose >/= 126 [...] 2022. Calcium 8.6 8.5 - 10.3 mg/dL [facility] Blood 06/02/2025 9:54 PM CDT 06/02/2025 10:23 PM CDT us Dari Bojorquez MD LAB BLOOD ORDERABLES Final Result Performing Organization Address City[facility]/[place] [address] * POCT glucose (06/02/2025 8:55 PM CDT) Glucose, POC 164 70 - 199 mg/dL Blood 06/02/2025 8:55 PM CDT 06/02/2025 8:55 PM CDT us Dari Bojorquez MD LAB POCT ORDERABLES - DEVICE Final Result Performing Organization Address [facility] Co de Phone Number [facility] Department of [facility] [employer] [place] [address] * POCT glucose (06/02/2025 8:01 PM CDT) Glucose, POC 171 70 - 199 mg/dL Blood 06/02/2025 8:01 PM CDT 06/02/2025 8:01 PM CDT Dari Bojorquez MD LAB POCT ORDERABLES - DEVICE Final Result Performing Organization Address [facility] Co de Phone Number [facility] [place] [address] * Critical Care (06/02/2025 7:10 PM CDT) [...] plan with the ICU team and other medical/creative consultant staff, making frequent assessments and decisions [...] LAB POCT ORDERABLES - DEVICE Final Result [facility] [place] [address] * POCT glucose (06/02/2025 5:07 PM CDT) [facility] Glucose, POC 101 70 - 199 mg/dL Blood 06/02/2025 5:07 PM CDT 06/02/2025 5:07 PM CDT us Dari Bojorquez MD LAB POCT ORDERABLES - DEVICE Final Result Performing Organization Address [facility] de Phone Number [facility] [place] [address] * (ABNORMAL) eGFR (06/02/2025 4:35 PM CDT) [facility] eGFR 55(L) >=60 mL/min/1. 73 m2 [...] BLOOD ORDERABLES Final Result Performing Organization Address [facility]/ZIP Co de Phone Number [facility] [place] [address] * (ABNORMAL) Phosphorus (06/02/2025 4:35 PM CDT) [facility] Phosphorus, pl 5.3(H) 2.3 - 4.5 mg/dL Blood 06/02/2025 4:35 PM CDT 06/02/2025 4:44 PM CDT Dari Bojorquez MD LAB BLOOD ORDERABLES Final Result Performing Organization Address [facility]/ZIP Co de Phone Number [facility] [place] [address] * Magnesium (06/02/2025 4:35 PM CDT) [facility] Magnesium 2.4 1.4 - 2.5 mg/dL Blood 06/02/2025 4:35 PM CDT 06/02/2025 4:44 PM CDT Dari Bojorquez MD LAB BLOOD ORDERABLES Final Result Performing Organization Address [facility] Co de Phone Number [facility] [place] [address] * (ABNORMAL) Basic metabolic panel (06/02/2025 4:35 PM CDT) [facility] Sodium 138 135 - 145 mmol/L Potassium, pl 4.2 3.3 - 4.9 mmol/L [facility] Chloride 103 97 - 110 mmol/L [facility] CO2 22 22 - 32 mmol/L [facility] Anion gap 13 2 - 15 mmol/L [facility] BUN 31(H) 6 - 25 mg/dL [facility] Creatinine 1.23(H) 0.60 - 1.10 mg/dL [facility] Glucose 105 70 - 199 mg/dL [facility] Comment: Interpretive Data Fasting glucose >/= 126 [...] 2022. Calcium 8.6 8.5 - 10.3 mg/dL [facility] Blood 06/02/2025 4:35 PM CDT 06/02/2025 4:44 PM CDT Dari Bojorquez MD LAB BLOOD ORDERABLES Final Result Performing Organization Address [facility] de Phone Number [facility] Department [place] [address] * POCT glucose (06/02/2025 4:28 PM CDT) Glucose, POC 100 70 - 199 mg/dL Blood 06/02/2025 4:28 PM CDT 06/02/2025 4:28 PM CDT Dari Bojorquez MD LAB POCT ORDERABLES - DEVICE Final Result Performing Organization Address [facility] de Phone Number [facility] Department [place] [address] * POCT glucose (06/02/2025 3:16 PM CDT) Glucose, POC 102 70 - 199 mg/dL Blood 06/02/2025 3:16 PM CDT 06/02/2025 3:16 PM CDT Dari Bojorquez MD LAB POCT ORDERABLES - DEVICE Final Result Performing Organization Address [facility]/ZIP Co de Phone Number VIKKI [facility] Department [place] [address] * POCT glucose (06/02/2025 2:34 PM CDT) Pathologist [facility] Glucose, POC 132 70 - 199 mg/dL Blood 06/02/2025 2:34 PM CDT 06/02/2025 2:34 PM CDT us Dari Bojorquez MD LAB POCT ORDERABLES - DEVICE Final Result Performing Organization Address [facility] de Phone Number VIKKI [facility] [place] [address] * (ABNORMAL) eGFR (06/02/2025 1:35 PM CDT) [facility] eGFR 54(L) >=60 mL/min/1. 73 m2 [...] Bojorquez MD LAB BLOOD ORDERABLES Final Result [facility] Department [place] [address] * Beta-hydroxybutyrate (06/02/2025 1:35 PM CDT) [facility] Beta-Hydroxybut yrate 0.2 0.0 - 0.5 mmol/L Blood 06/02/2025 1:35 PM CDT 06/02/2025 2:00 PM CDT Dari Bojorquez MD LAB BLOOD ORDERABLES Edited Result - Final [facility] [place] [address] * (ABNORMAL) CBC without differential (06/02/2025 1:35 PM CDT) [facility] WBC 28.31(H) 3.80 - 9.90 K/cumm Hgb 11.6(L) 11.9 - 15.5 g/dL [facility] Hct 34.6(L) 35.6 - 45.5 % [facility] Plt 331 150 - 400 K/cumm [facility] MPV 10.7 9.1 - 12.3 fL [facility] RBC 4.08 3.90 - 5.20 M/cumm [facility] MCV 84.8 81.3 - 96.4 fL [facility] MCH 28.4 27.1 - 33.3 pg [facility] MCHC 33.5 32.3 - 35.7 g/dL [facility] RDW CV 13.6 11.1 - 14.9 % [facility] RDW SD 42.1 35.7 - 48.1 fL [facility] NRBC abs 0.00 0.00 - 0.01 K/cumm [facility] Blood 06/02/2025 1:35 PM CDT 06/02/2025 1:56 PM CDT us Dari Bojorquez MD LAB BLOOD ORDERABLES Final Result [facility] Department [place] [address] * (ABNORMAL) Comprehensive metabolic panel (06/02/2025 1:35 PM CDT) Sodium 137 135 - 145 mmol/L Comment:Repeated and Verifie d Potassium, pl 4.2 3.3 - 4.9 mmol/L [facility] Chloride 102 97 - 110 mmol/L [facility] CO2 22 22 - 32 mmol/L [facility] Anion gap 14 2 - 15 mmol/L [facility] BUN 29(H) 6 - 25 mg/dL [facility] Creatinine 1.24(H) 0.60 - 1.10 mg/dL [facility] Glucose 163 70 - 199 mg/dL [facility] Comment: Interpretive Data Fasting glucose >/= 126 [...] 2022. Calcium 8.9 8.5 - 10.3 mg/dL [facility] Bilirubin, total <0.2 0.1 - 1.2 mg/dL [facility] Protein, pl 6.9 6.5 - 8.5 g/dL [facility] Albumin 3.0(L) 3.5 - 5.0 g/dL [facility] Alk phos 146(H) 40 - 130 Units/L [facility] ALT 19 7 - 45 Units/L [facility] AST 20 10 - 45 Units/L [facility] Blood 06/02/2025 1:35 PM CDT 06/02/2025 1:56 PM CDT us Dari Bojorquez MD LAB BLOOD ORDERABLES Final Result Performing Organization Address [facility] Co de Phone Number [facility] [place] [address] * POCT glucose (06/02/2025 12:54 PM CDT) Glucose, POC 181 70 - 199 mg/dL Blood 06/02/2025 12:5 4 PM CDT 06/02/2025 12:54 PM CDT Dari Bojorquez MD LAB POCT ORDERABLES - DEVICE Final Result Performing Organization Address [facility] de Phone Number [facility] [place] [address] * (ABNORMAL) POCT glucose (06/02/2025 11:50 AM CDT) Glucose, POC 245(H) 70 - 199 mg/dL Blood 06/02/2025 11:5 0 AM CDT 06/02/2025 11:50 AM CDT Dari Bojorquez MD LAB POCT ORDERABLES - DEVICE Final Result Performing Organization Address [facility] de Phone Number [facility] [place] [address] * (ABNORMAL) POCT glucose (06/02/2025 10:54 AM CDT) Glucose, POC 291(H) 70 - 199 mg/dL Blood 06/02/2025 10:5 4 AM CDT 06/02/2025 10:54 AM CDT Dari Bojorquez MD LAB POCT ORDERABLES - DEVICE Final Result Performing Organization Address [facility] Co de Phone Number [facility] Department [place] [address] * (ABNORMAL) POCT glucose (06/02/2025 9:44 AM CDT) Glucose, POC 336(H) 70 - 199 mg/dL Blood 06/02/2025 9:44 AM CDT 06/02/2025 9:44 AM CDT us Dari Bojorquez MD LAB POCT ORDERABLES - DEVICE Final Result [facility] [place] [address] * (ABNORMAL) Tissue aerobic and anaerobic culture and gram stain Tissue Perineum (06/02/2025 9:26 AM CDT) Pathologist [facility] Direct Specimen Exam Stain: Few polymorphonuclear leukocytes seen. Abundant Gram Positive Bacilli Abundant Gram Negative Bacilli Abundant Gram Positive Cocci Report Final Report: Abundant Mixed aerobic and anaerobic microorganisms Includes the following: Rare Staphylococcus lugdunensis (.) [facility] Organism STAPHYLOCOCCUS LUGDUNENSIS [facility] Organism MIXED AEROBIC AND ANAEROBIC MICROORGANISMS [facility] Tissue (Perineum) 06/02/2025 9:26 AM CDT 06/02/2025 11:55 AM CDT N[facility]ative [facility] - 06/09/2025 2:03 PM CDT Perineal deep tissue Testing performed by [facility] ([phone]) Specimens submitted from normally sterile body sites [...] ENERAL ORDERABLES Final Result Performing Organization Address [facility] de Phone Number [facility] Department [place] [address] * Mycology (fungal) culture and stain Abscess Perineum (06/02/2025 9:26 AM CDT) Direct Specimen Exam Stain: No Fungal elements seen. Report Final Report: No growth of fungus [facility] Abscess (Perineum) 06/02/2025 9:26 AM CDT 06/02/2025 11:57 AM CDT Narrative [facility] - 06/30/2025 1:15 PM CDT Right perineal fluid Testing performed by [facility] ([phone]). us Dari Bojorquez MD LAB MICROBIOLOGY - G ENERAL ORDERABLES Final Result Performing Organization Address [facility] de Phone Number [facility] [place] [address] * Mycology (fungal) culture and stain Tissue Perineum (06/02/2025 9:26 AM CDT) Direct Specimen Exam Stain: No Fungal elements seen. Report Final Report: No growth of fungus [facility] Tissue (Perineum) 06/02/2025 9:26 AM CDT 06/02/2025 11:55 AM CDT Narrative [facility] - 06/30/2025 1:15 PM CDT Perineal deep tissue Testing performed by [facility] ([phone]). Dari Bojorquez MD LAB MICROBIOLOGY - G ENERAL ORDERABLES Final Result Performing Organization Address [facility] de Phone Number VIKKI [facility] Department [place] [address] * (ABNORMAL) Aerobic and anaerobic culture and gram stain Abscess Groin, right (06/02/2025 9:26 AM CDT) Direct Specimen Exam Stain: Few polymorphonuclear leukocytes seen. Moderate Gram Positive Bacilli Moderate Gram Positive Cocci Few Gram Negative Bacilli Report Final Report: Moderate Mixed aerobic and anaerobic microorganisms (.) [facility] Organism MIXED AEROBIC AND ANAEROBIC MICROORGANISMS [facility] Abscess (Groin, right) 06/02/2025 9:26 AM CDT 06/02/2025 11:57 AM CDT Narrative [facility] - 06/08/2025 3:13 PM CDT Right perineal fluid Testing performed by [facility] ([phone]) Specimens submitted from normally sterile body sites [...] ENERAL ORDERABLES Final Result Performing Organization Address [facility] Co de Phone Number VIKKI NASSAR [facility] Department [place] [address] * (ABNORMAL) POCT glucose (06/02/2025 9:06 AM CDT) Glucose, POC 296(H) 70 - 199 mg/dL Blood 06/02/2025 9:06 AM CDT 06/02/2025 9:06 AM CDT us Dari Bojorquez MD LAB POCT ORDERABLES - DEVICE Final Result Performing Organization Address [facility] Co de Phone Number VIKKI [facility] Department [place] [address] * (ABNORMAL) POCT glucose (06/02/2025 8:35 AM CDT) Glucose, POC 286(H) 70 - 199 mg/dL Blood 06/02/2025 8:35 AM CDT 06/02/2025 8:35 AM CDT us Dari Bojorquez MD LAB POCT ORDERABLES - DEVICE Final Result Performing Organization Address [facility] de Phone Number VIKKI [facility] [place] [address] * Airway (06/02/2025 8:24 AM CDT) Narrative [...] plan with the ICU team and other medical/creative consultant staff, making frequent assessments and decisions [...] POCT ORDERABLES - DEVICE Final Result [facility] [place] [address] * Check Sample (06/02/2025 6:11 AM CDT) ABO Rh B Positive [facility] HCLL OTHER 06/02/2025 6:11 AM CDT 06/02/2025 6:29 AM CDT Dari Bojorquez MD LAB BLOOD ORDERABLES Final Result Performing Organization Address City/[facility]/ZIP Co de Phone Number [facility] [place] [address] [facility] * (ABNORMAL) Urinalysis reflex to microscopic and culture Urine (06/02/2025 6:11 AM CDT) Color, ur Straw Yellow Clarity, ur Clear Clear [facility] Specific gravity, ur 1.035(H) 1.003 - 1.030 [facility] pH, urine 6.0 [facility] Comment: Interpretive Data U rine pH is affected by diet, medications, systemic acid-base disturbances, and renal tubular function. pH may affect urinary stone formation. For example, urine pH below 6.0 may help reduce the tendency for calcium phosphate stones and pH greater than 6.0 may reduce the tendency for uric acid stone formation. Source: [facility] Current Interpretive Data was last revised on 2017 Protein, ur ql 1+(A) Negative [facility] Glucose, ur ql 4+(A) Negative [facility] Ketones, ur 1+(A) Negative [facility] Bilirubin, ur Negative Negative [facility] Blood, ur Negative Negative [facility] Urobilinogen, ur <2.0 <2.0 mg/dL [facility] Nitrite, ur Negative Negative [facility] Leukocyte esterase, ur Negative Negative [facility] UA reflex comment Reflex to microscopic UA will be performed. [facility] Urine 06/02/2025 6:11 AM CDT 06/02/2025 6:19 AM CDT us Mónica Hayes DO LAB MICROBIOLOGY - GENERAL ORDERABLES Final Result Performing Organization Address [facility]/ZIP Co de Phone Number [facility] Department [place] [address] * (ABNORMAL) Urinalysis, microscopic only (06/02/2025 6:11 AM CDT) WBC, ur 6-10(A) 0 - 5 /HPF RBC, ur 0-2 0 - 2 /HPF [facility] Epithelial cells, squamous, ur 1-5 0 - 5 /HPF [facility] Yeast, ur TRACE [facility] Culture Reflex Comment Reflex conditions for urine culture (WBC >10) not met. [facility] Urine 06/02/2025 6:11 AM CDT 06/02/2025 6:19 AM CDT Mónica Hayes DO LAB URINE ORDERABLE S Final Result Performing Organization Address [facility] de Phone Number [facility] Department [place] [address] * (ABNORMAL) POCT ketone, blood (06/02/2025 5:25 AM CDT) Beta-Hydroxybut yrate, POC 2.1(H) 0.0 - 0.5 mmol/L Blood 06/02/2025 5:25 AM CDT 06/02/2025 5:25 AM CDT Sol Barba MD LAB POCT ORDERABLES - DEVIC E Final Result Performing Organization Address City/[facility]/ZIP Co de Phone Number [facility] Department [place] [address] * (ABNORMAL) POCT glucose (06/02/2025 5:24 AM CDT) Glucose, POC 378(H) 70 - 199 mg/dL Blood 06/02/2025 5:24 AM CDT 06/02/2025 5:24 AM CDT Sol Barba MD LAB POCT ORDERABLES - DEVIC E Final Result VIKKI NASSAR [facility] Department [place] [address] * Sepsis Lactate w/ Reflex (06/02/2025 5:22 AM CDT) Sepsis Lactate 1.9 0.7 - 2.0 mmol/L Blood 06/02/2025 5:22 AM CDT 06/02/2025 5:36 AM CDT us Mónica Hayes DO LAB BLOOD ORDERABLE S Final Result Performing Organization Address [facility] Co de Phone Number [facility]KKI [facility] Department [place] [address] * (ABNORMAL) eGFR (06/02/2025 5:22 AM CDT) [...] BLOOD ORDERABLES Final Result VIKKI NASSAR [facility] [place] [address] * (ABNORMAL) Differential, auto (06/02/2025 5:22 AM [...] CERNER BJ Neutrophil pct 87.4 % [facility] Comment: Interpretive Data Percent cell count reference ranges are not reported, since discordance with absolute values may lead to misinterpretation of CBC data. Current Interpretive Data was last revised on 2018. Imm gran pct 2.3 % [facility] Comment: Interpretive Data Percent cell count reference ranges are not reported, since discordance with absolute values may lead to misinterpretation of CBC data. Current Interpretive Data was last revised on 2018. Lymphocyte pct 5.1 % [facility] Comment: Interpretive Data Percent cell count reference ranges are not reported, since discordance with absolute values may lead to misinterpretation of CBC data. Current Interpretive Data was last revised on 2018. Monocyte pct 4.5 % [facility] Comment: Interpretive Data Percent cell count reference ranges are not reported, since discordance with absolute values may lead to misinterpretation of CBC data. Current Interpretive Data was last revised on 2018. Eosinophil pct 0.2 % [facility] Comment: Interpretive Data Percent cell count reference ranges are not reported, since discordance with absolute values may lead to misinterpretation of CBC data. Current Interpretive Data was last revised on 2018. Basophil pct 0.5 % [facility] Comment: Interpretive Data Percent cell count reference ranges are not reported, since discordance with absolute values may lead to misinterpretation of CBC data. Current Interpretive Data was last revised on 2018. Blood 06/02/2025 5:22 AM CDT 06/02/2025 6:01 AM CDT Mónica Hayes LAB BLOOD ORDERABLE S Final Result Performing Organization Address City/[facility]/ZIP Co de Phone Number [facility] Department of [employer] [place] [address] * (ABNORMAL) CBC with auto differential (06/02/2025 5:22 AM CDT) WBC 29.09(H) 3.80 - 9.90 K/cumm Hgb 12.9 11.9 - 15.5 g/dL [facility] Hct 37.6 35.6 - 45.5 % [facility] Plt 311 150 - 400 K/cumm [facility] MPV 11.2 9.1 - 12.3 fL [facility] RBC 4.50 3.90 - 5.20 M/cumm [facility] MCV 83.6 81.3 - 96.4 fL [facility] MCH 28.7 27.1 - 33.3 pg [facility] MCHC 34.3 32.3 - 35.7 g/dL [facility] RDW CV 13.4 11.1 - 14.9 % [facility] RDW SD 41.2 35.7 - 48.1 fL [facility] NRBC abs 0.00 0.00 - 0.01 K/cumm [facility] Blood 06/02/2025 5:22 AM CDT 06/02/2025 6:01 AM CDT us Mónica Hayes DO LAB BLOOD ORDERABLE S Final Result Performing Organization Address City[facility]/ZIP Co de Phone Number [facility] [place] [address] * Blood culture Blood Peripheral (06/02/2025 5:22 [...] performance characteristics have been verified by the [facility] Microbiology Laboratory. For questions about this culture, contact the Microbiology Laboratory at [phone]. Interpretive data was last revised on 24. Mónica Hayes DO LAB MICROBIOLOGY - GENERAL ORDERABLES Final Result [facility] [place] [address] * Blood culture Blood Peripheral (06/02/2025 5:22 [...] performance characteristics have been verified by the [facility] Microbiology Laboratory. For questions about this culture, contact the Microbiology Laboratory at [phone]. Interpretive data was last revised on 24. Mónica Hayes DO LAB MICROBIOLOGY - GENERAL ORDERABLES Final Result VIKKI NASSAR [facility] Department [place] [address] * (ABNORMAL) aPTT (06/02/2025 5:22 AM CDT) [facility] aPTT 17(L) 26 - 38 sec Comment: No clot detected in sample - [id number] - 06/02/25, 7:10 AM Interpretive Data Heparin therapeutic range: 66.0 - 100.0 seconds. Range based on correlation with therapeutic heparin activity range of 0.3 - 0.7 Units/mL. Current interpretive data was last revised on 2023. Blood 06/02/2025 5:22 AM CDT 06/02/2025 5:42 AM CDT Mónica Hayes DO LAB BLOOD ORDERABLE S Final Result [facility] [employer] [place] [address] * (ABNORMAL) Erythrocyte sedimentation rate (06/02/2025 5:22 AM CDT) Erythrocyte sedimentation rate 44(H) 1 - 20 mm/hr Blood 06/02/2025 5:22 AM CDT 06/02/2025 6:01 AM CDT Mónica Hayes LAB BLOOD ORDERABLE S Final Result Performing Organization Address [facility] [place] [address] * Protime-INR (06/02/2025 5:22 AM CDT) Pathologist [facility] PT 12.2 10.2 - 13.5 sec INR 1.08 0.90 - 1.20 [facility] Comment: Interpretive data Oral anticoagulant therapeutic ranges: Venous thromboembolism prophylaxis or treatment: 2.0-3.0 CARDIOLOGY Standard range: 2.0-3.0 High-intensity range: 2.5-3.5 Refer to indication-specific guidelines for appropriate target ranges for prosthetic heart valve replacement. Current interpretive data was last revised on 2019. Blood 06/02/2025 5:22 AM CDT 06/02/2025 5:42 AM CDT Mónica Hayes LAB BLOOD ORDERABLE S Final Result Performing Organization Address [facility] [place] [address] * Type and screen (06/02/2025 5:22 AM CDT) ABO Rh B Positive James, indirect Negative [facility] Blood 06/02/2025 5:22 AM CDT 06/02/2025 5:44 AM CDT Narrative [facility] - 06/02/2025 6:38 AM CDT Has the patient had Daratumumab or Isatuximab in the past 6 months?->Unknown Mónica Hayes DO LAB BLOOD BANK TEST ORDERABLES Final Result Performing Organization Address [facility] Co de Phone Number [facility] Department [place] [address] * (ABNORMAL) CRP (acute phase) (06/02/2025 5:22 AM CDT) Pathologist [facility] CRP 277.4(H) <=10.0 mg/L Comment:Repeated on Dilution Blood 06/02/2025 5:22 AM CDT 06/02/2025 5:42 AM CDT Mónica Hayes DO LAB BLOOD ORDERABLE S Final Result Performing Organization Address [facility] de Phone Number [facility] [place] [address] * (ABNORMAL) Blood gas, venous (06/02/2025 5:22 AM CDT) pH, Venous 7.35 7.32 - 7.43 PCO2, Venous 31(L) 40 - 50 mmHg [facility] PO2, Venous 49 mmHg [facility] Comment: Interpretive Data No Reference Range Established Current Interpretive Data was last revised on 2018. HCO3 Venous, Calculated 18(L) 20 - 30 mmol/L [facility] BE, venous -7 mmol/L [facility] Comment: Interpretive Data No Reference Range Established Current Interpretive Data was last revised on 2018. Blood 06/02/2025 5:22 AM CDT 06/02/2025 5:36 AM CDT Dari Bojorquez MD LAB BLOOD ORDERABLES Final Result [facility] [place] [address] * (ABNORMAL) Comprehensive metabolic panel (06/02/2025 5:22 AM CDT) Sodium 127(L) 135 - 145 mmol/L Potassium, pl 4.7 3.3 - 4.9 mmol/L [facility] Comment:Hemolyzed; Potassium value may be falsely elevated by as much as 0.3-0.5 mmol/L. Suggest redraw and reanalysis. Chloride 93(L) 97 - 110 mmol/L [facility] CO2 15(L) 22 - 32 mmol/L [facility] Anion gap 19(H) 2 - 15 mmol/L [facility] BUN 29(H) 6 - 25 mg/dL [facility] Creatinine 1.22(H) 0.60 - 1.10 mg/dL [facility] Glucose 371(H) 70 - 199 mg/dL [facility] Comment: Interpretive Data Fasting glucose >/= 126 [...] 2022. Calcium 8.7 8.5 - 10.3 mg/dL [facility] Bilirubin, total 0.4 0.1 - 1.2 mg/dL [facility] Protein, pl 6.8 6.5 - 8.5 g/dL [facility] Albumin 2.8(L) 3.5 - 5.0 g/dL [facility] Alk phos 139(H) 40 - 130 Units/L [facility] ALT 20 7 - 45 Units/L [facility] AST 27 10 - 45 Units/L [facility] Comment:Hemolyzed; result ma y be falsely elevated Blood 06/02/2025 5:22 AM CDT 06/02/2025 5:42 AM CDT Dari Bojorquez MD LAB BLOOD ORDERABLES Final Result [facility] [place] [address] * CT Body Outside Consult (06/02/2025 5:21 [...] images may or may not represent the quechan source data set and thus may contain [...] IMAGING STUDY STUDY INITIALLY PERFORMED: 06/02/2025 at [facility]. TYPE OF STUDY: Multiple CT images [...] IMAGING STUDY STUDY INITIALLY PERFORMED: 06/02/2025 at [facility]. TYPE OF STUDY: Multiple CT images [...] images may or may not represent the quechan source data set and thus may contain [...] Mammogram Bilateral W Tim (11/14/2021 9:21 AM MED CARE MANAGER) Anatomical Region Laterality Modality Breast Bilateral Mammography Narrative 11/17/2021 9:31 AM MED CARE MANAGER Mammogram Technique: Bilateral Digital Breast Tomosynthesis, Bilateral C-view 2D Screening mammogram. Views obtained: bilateral craniocaudal and bilateral mediolateral oblique. Computer Aided Detection was performed. Mammogram Findings: The present examination has been compared to prior imaging studies performed at [facility] on 04/24/2020, and at [facility] on 03/23/2017. The breasts are almost [...] compared to prior imaging studies performed at [facility] on 04/24/2020, and at [facility] on 03/23/2017. The breasts are almost entirely fatty. There is no suspicious abnormality in either breast. Impression: There is no mammographic evidence of malignancy. Annual screening mammography is recommended. OVERALL FINAL ASSESSMENT: BI-RADS CATEGORY 1: Negative. us Melodie Mckinney MD IMG MAMMO PROCEDURES F inal Result * (ABNORMAL) Albumin Creatinine Ratio, Urine (11/05/2021 9:19 AM MED CARE MANAGER) Creatinine, ur 125 20 - 275 mg/dL [...] a diagnostic category. Urine 11/05/2021 9:19 AM MED CARE MANAGER 11/06/2021 6:41 AM MED CARE MANAGER Melodie Mckinney MD LAB URINE ORDERABLES F inal Result [facility] [address] [id number] * DIABETES FOOT EXAM (07/26/2019) Diabetic Foot Exam Normal us Historical Provider HEALTH MAINTENANCE Final Result from Last 3 Months or Most Recently Relevant to Health Maintenance Insurance [facility] Member Subscriber Plan / Payer (Ef fective 2024-Present) Name:Dorian Montiel Relation to Subscriber:Self Name:Dorian Montiel Payer ID:[id number] (NAIC) Group ID:[id number] Type:HEALTHCARE/EXCHANGE Address: [address] [facility] Advance Directives For more information, please contact: [phone] Documents on File Type Date Recorded Patient Machine Stamper Expl anation ADVANCE DIRECTIVE 06/27/2025 5:41 PM POWER OF MEDICAL APPLIANCE MAKER-MEDICAL ADVANCE DIRECTIVE 06/06/2025 2:19 PM Power of Geophysicist * Full Code (Latest Code Status on File) Date Activated Date Inactivated Comments 07/14/2025 7:32 PM 07/26/2025 7:55 PM * Full Code Date Activated Date Inactivated Comments 06/02/2025 1:23 PM 06/22/2025 5:24 PM Care Teams Auto Body Estimator Relationship Specialty Start Date End Date Rosie Aguilera DO [address] [place] [address] PCP - General 06/04/25 Chip Hagen MD [address] [place] [address] Consulting Physician Infectious Diseases 07/26/25 Chad Castellon MD [address] [facility] [address] [place] [address] Surgeon General Surgery 07/26/25
--- OUTSIDE RECORDS SUMMARY | 2025-08-21 19:33 | XMS_ITS | Encounter Summary ---
Author Organization [facility] Address [facility] [place] [address] Care Team Providers Care Animal Treatment Investigator Name Role Phone Rosie Aguilera DO Primary Care Provider [phone] Encounter Details Date Type Department Care Team (Late st Contact Info) Description 06/01/2025 MyChart Message Enc [facility] Medical [facility] Family & Internal Medicine [address] [phone] Rosie Aguilera DO 3 [facility]. [facility] [address] [place], [place] [phone] Abcess Social History Tobacco Use Types Packs/Day [...] PM CDT Legal Sex Female 8:24 AM HELICOPTER OFFICER Gender Identity Female 05/21/2025 1:18 PM CDT Sexual Orientation Not on file documented as of this encounter Plan of Treatment Upcoming Encounters Date Type Department Care Team (Late st Contact Info) Description 08/30/2025 11:00 AM HELICOPTER OFFICER Office Visit [facility] [place] THREE [facility] [address] [place], [place] [phone] Matthew Agustin MD 3 [place] [address] 12/26/2025 10:20 AM CDT Office Visit [facility] Medical [facility] Pulmonology Specialty Clinic - [address] [place] [address] Sebastien Naik MD [address] [address] documented as of this encounter Visit Diagnoses Not on filedocumented in this encounter Additional Health Concerns Assessment Noted Time PHQ-9 Depression Total Score: 8 05/21/20 23 1:09 PM CDT documented as of this encounter Care Teams Animal Treatment Investigator Relationship Specialty Start Date End Date Rosie Aguilera DO [address] [place] [address] PCP - General FAMILY PRACTICE 05/21/25 documented as of this encounter
--- OUTSIDE RECORDS SUMMARY | 2025-08-21 19:33 | XMS_ITS | Encounter Summary ---
Author Organization [facility] Address [address] [place] [address] Care Team Providers Care Gerontological Nurse Practitioner Name Role Phone Rosie Aguilera DO Primary Care Provider [phone] Encounter Details Date Type Department Care Team (Late Contact Info) Description 08/21/[address] [facility] Family & Internal Medicine [address] [phone] Rosie Aguilera DO 3 [facility]. [facility] [address] [place], [place] [phone] Culture Results- MRSA Social History Tobacco Use Types Packs/Day Years [...] PM CDT Legal Sex Female 8:24 AM BELLOWS CHARGER ASSEMBLER Gender Identity Female 05/21/2025 1:18 PM CDT Sexual Orientation Not on file documented as of this encounter Plan of Treatment Upcoming Encounters Date Type Department Care Team (Late Contact Info) Description 08/30/2025 11:00 AM BELLOWS CHARGER ASSEMBLER Office Visit [facility] [place] THREE [facility], [facility] [address] [place], [place] [phone] Matthew Agustin MD 3 [place] [address] 12/26/2025 10:20 AM CDT Office Visit [facility] Pulmonology Specialty Clinic - [address] [place] [address] Sebastien Naik MD [address] [address] documented as of this encounter Visit Diagnoses Not on filedocumented in this encounter Additional Health Concerns Assessment Noted Time PHQ-9 Depression Total Score: 8 05/21/20 23 1:09 PM CDT documented as of this encounter Care Teams Gerontological Nurse Practitioner Relationship Specialty Start Date End Date Rosie Aguilera DO [address] [place] [address] PCP - General FAMILY PRACTICE 05/21/25 documented as of this encounter
--- OUTSIDE RECORDS SUMMARY | 2025-08-21 19:33 | XMS_ITS | Encounter Summary ---
Author Organization [facility] Address [address] [place] [address] Phone Care Team Providers Care Nutrition Professor Name Role Phone Rosie Aguilera DO Primary Care Provider Encounter Details Date Type Department Care Team (Late st Contact Info) Description 06/29/2025 Nursing Facility [facility] [place] [phone] Balaji Thrasher MD [address] [place] [address] Social History Tobacco Use Types Packs/Day Years [...] on filedocumented in this encounter Care Teams Nutrition Professor Relationship Specialty Start Date End Date Rosie Aguilera DO [address] [place] [id number] PCP - General Family Medicine 07/02/25 documented as of this encounter
--- OUTSIDE RECORDS SUMMARY | 2025-08-21 19:33 | XMS_ITS | Encounter Summary ---
Author Organization [facility] Address [facility] [place] [address] Care Team Providers Care Home Companion Name Role Phone Rosie Aguilera DO Primary Care Provider [phone] Encounter Details Date Type Department Care Team (Latest Contact Info) Description 04/12/2023 MyChart Message Enc [facility] Medical Group Multispecialty Care - [place] [address] [address] [place] [address] Sarthak Munguia MD [address] [place] [address] [address] [place] [address] Need a Refill on Farxiga 5mg ST[place]ART Social History Tobacco Use Types Packs/Day Years Used Date Smoking Tobacco: Never Smokeless Tobacco: Never Comments No Sex and Gender Information Value Date Recorded Sex Assigned at Female 05/21/2025 1:18 PM CDT Legal Sex Female 8:24 AM VP OF CUSTOMER EXPERIENCE STRATEGY Gender Identity Female 05/21/2025 1:18 PM CDT Sexual Orientation Not on file documented as of this encounter Plan of Treatment Upcoming Encounters Date Type Department Care Team (Late st Contact Info) Description 08/30/2025 11:00 AM VP OF CUSTOMER EXPERIENCE STRATEGY Office Visit [facility] [facility] [place] [address] [place] [address] Matthew Agustin MD 3 [place] [address] 12/26/2025 10:20 AM CDT Office Visit [facility] Medical [facility] Pulmonology Specialty Clinic - [address] [place] [address] Sebastien Naik MD [address] [place] [address] documented as of this encounter Visit Diagnoses Not on filedocumented in this encounter Care Teams Home Companion Relationship Specialty Start Date End Date Rosie Aguilera DO Formerly named [facility] [place] [address] PCP - General FAMILY PRACTICE 05/21/25 documented as of this encounter
--- OUTSIDE RECORDS SUMMARY | 2025-08-21 19:33 | XMS_ITS | Clinical Summary ---
Author Organization [facility] Address [address] [place] [address] Phone Care Team Providers Care Systems Support Officer Name Role Phone Rosie Aguilera Primary Care Provider [phone] Allergies No known active allergies Medications No known medications Encounters Date Type Department Care Team Description 07/05/2025 Nursing Facility [facility] [place] [address] Zahraa Carreno APRN, [place] 07/02/2025 12:09 PM CDT - 07/02/2025 7:21 PM CDT Emergency [facility] Emergency [address] [place] [address] Edgar Mckeon DO Disruption of wound of perineum in female Discharge Disposition: Discharged to home or Selfcare 07/02/2025 Nursing Facility [facility] [place] [address] Zahraa Carreno APRN, [place] 07/02/2025 Travel 06/29/2025 Nursing Facility [facility] [place] [address] Balaji Thrasher MD from Last 3 Months [...] - 99 mg/dL 07/02/2025 3:33 PM CDT [facility] Blood 07/02/2025 3:28 PM CDT 07/02/2025 3:33 PM CDT us None Provider POINT OF CARE TESTING Final Resu lt [facility] [address] [place] [address] * CT ABDOMEN PELVIS W/ CONTRAST (07/02/2025 [...] CDT DICTATING PHYSICIAN: Derek Rodriguez M.D. - [facility] Examination: CT abdomen and pelvis [...] 07/02/2025 DICTATING PHYSICIAN: Derek Rodriguez M.D. - [facility] Examination: CT abdomen and pelvis with [...] communicate with the right inferomedial gluteal fold (, image #230). Adjacent mildly prominent right inguinal [...] Mckeon DO CHEMISTRY ORDERABLES Fi nal Result [facility] [address] [place] [address] * (ABNORMAL) CBC with Auto Differential (07/02/2025 1:20 PM CDT) WBC 10.53 4.00 - 12.00 10(3)/mcL 07/02/2025 2:21 PM CDT [facility] RBC 3.78(L) 3.80 - 5.30 10(6)/mcL 07/02/2025 2:21 PM CDT [facility] HEMOGLOBIN (HGB) 10.6(L) 12.0 - 15.8 g/dL 07/02/2025 2:21 PM CDT [facility] HEMATOCRIT (HCT) 34.7(L) 36.0 - 47.0 % 07/02/2025 2:21 PM CDT [facility] MCV 91.8 82.0 - 96.0 fL 07/02/2025 2:21 PM CDT [facility] MCH 28.0 26.0 - 34.0 pg 07/02/2025 2:21 PM CDT [facility] MCHC 30.5(L) 31.0 - 36.0 g/dL 07/02/2025 2:21 PM CDT [facility] PLATELET COUNT 441(H) 140 - 440 10(3)/mcL 07/02/2025 2:21 PM CDT [facility] RDW 16.6(H) 11.8 - 15.5 % 07/02/2025 2:21 PM CDT [facility] MPV 11.3 9.7 - 12.4 fL 07/02/2025 2:21 PM CDT [facility] NEUTROPHILS 51.6 47.0 - 73.0 % 07/02/2025 2:21 PM CDT [facility] LYMPHOCYTES 35.7 18.0 - 42.0 % 07/02/2025 2:21 PM CDT [facility] MONOCYTES 9.0 4.0 - 12.0 % 07/02/2025 2:21 PM CDT [facility] EOSINOPHILS 2.4 0.0 - 5.0 % 07/02/2025 2:21 PM CDT [facility] BASOPHILS 0.9 0.0 - 1.0 % 07/02/2025 2:21 PM CDT [facility] IMMATURE GRANULOCYTE 0.4 0.0 - 0.4 % 07/02/2025 2:21 PM CDT [facility] ABSOLUTE NEUTROPHILS 5.44 1.60 - 7.70 10(3)/[facility] 07/02/2025 2:21 PM CDT [facility] ABSOLUTE LYMPHOCYTES 3.76(H) 1.30 - 3.20 10(3)/[facility] 07/02/2025 2:21 PM CDT [facility] ABSOLUTE MONOCYTES 0.95 0.20 - 1.00 10(3)/[facility] 07/02/2025 2:21 PM CDT [facility] ABSOLUTE EOSINOPHIL 0.25 0.00 - 0.40 10(3)/[facility] 07/02/2025 2:21 PM CDT [facility] ABSOLUTE BASOPHILS 0.09 0.00 - 0.10 10(3)/[facility] 07/02/2025 2:21 PM CDT [facility] ABSOLUTE IMMATURE GRANULOCYTE 0.04(H) 0.00 - 0.03 10 (3) mcL. 07/02/2025 2:21 PM CDT [facility] NRBC PER 100 WBC 0 07/02/20 2:21 PM CDT [facility] RESULTS ARE CONSISTENT WITH PERIPHERAL SMEAR REVIEW Yes 07/02/2025 2:21 PM CDT [facility] Blood Venipuncture / Unknown 07/02/2025 1:20 PM CDT 07/02/2025 1:32 PM CDT us Edgar Mckeon DO HEMATOLOGY ORDERABLES F inal Result [facility] [address] [place] [address] * Lactic Acid (Lactate) Serum (07/02/2025 1:20 PM CDT) LACTIC ACID 1.1 0.7 - 2.0 mmol/L 07/02/2025 2:06 PM CDT [facility] Blood Venipuncture / Unknown 07/02/2025 1:20 PM CDT 07/02/2025 1:34 PM CDT us Edgar Mckeon DO CHEMISTRY ORDERABLES Fi nal Result Performing Organization Address [facility]/ZIP Co de Phone Number [facility] [address] [place] [address] * Culture, Blood (07/02/2025 1:20 PM CDT) Only the most recent of2 resultswithin the time period is included. CULTURE RESULTS NO GROWTH WITHIN 5 DAYS, FINAL RESULT 07/07/2025 2:00 PM CDT [facility] Culture BLOOD SPECIMEN / Unknown Venipuncture / Unknown 07/02/2025 1:20 PM CDT 07/02/2025 1:32 PM CDT us Edgar Mckeon DO MICROBIOLOGY - GENERAL ORDERABLES Final Result [facility] [address] [place] [address], * (ABNORMAL) CMP (Comprehensive Metabolic Panel) (07/02/2025 1:20 PM CDT) SODIUM 140 136 - 145 mmol/L 07/02/2025 2:08 PM CDT [facility] POTASSIUM 4.7 3.5 - 5.1 mmol/L 07/02/2025 2:08 PM CDT [facility] CHLORIDE 107 98 - 107 mmol/L 07/02/2025 2:08 PM CDT [facility] CO2, VENOUS 22 22 - 30 mmol/L 07/02/2025 2:08 PM CDT [facility] ANION GAP 15.7 <18.0 mmol/L 07/02/2025 2:08 PM CDT [facility] GLUCOSE 131(H) 70 - 99 mg/dL 07/02/2025 2:08 PM CDT [facility] BUN 26(H) 5 - 18 mg/dL 07/02/2025 2:08 PM CDT [facility] CREATININE, BLOOD 0.49(L) 0.60 - 1.00 mg/dL 07/02/2025 2:08 PM CDT [facility] BUN/CREATININE RATIO 53(H) 12 - 20 ratio 07/02/2025 2:08 PM CDT [facility] TOTAL PROTEIN 7.3 6.0 - 8.0 g/dL 07/02/2025 2:08 PM CDT [facility] ALBUMIN 3.7 3.5 - 5.0 g/dL 07/02/2025 2:08 PM CDT [facility] A/G RATIO 1.0 1.0 - 2.2 07/02/2025 2:08 PM CDT [facility] CALCIUM 9.2 8.7 - 10.5 mg/dL 07/02/2025 2:08 PM CDT [facility] T BILI 0.2 0.2 - 1.2 mg/dL 07/02/2025 2:08 PM CDT [facility] SGOT (AST) 31 <43 U/L 07/02/2025 2:08 PM CDT [facility] Comment: Specimen is hemolyzed. In vitro hemolysis could affect results. Clinical correlation advised. SGPT (ALT) 19 <56 U/L 07/02/2025 2:08 PM CDT [facility] ALKALINE PHOSPHATASE 65 40 - 150 U/L 07/02/2025 2:08 PM CDT [facility] GFR, ESTIMATED >60 >=60 07/02/2025 2:08 PM CDT [facility] Comment: Creatinine Clearance is the preferred criteria for selecting drug dose adjustments in renally impaired patients. The GFR is provided as additional pertinent clinical information. GFR is reported in mL/min/1.73 sq m. Calculation based on the 2020 Chronic Kidney Disease Epidemiology Collaboration (CKD-EPI) equation refit without adjustment for race. GFR, EST. >60 >=60 2:08 PM CDT [facility] Comment: Creatinine Clearance is the preferred criteria for selecting drug dose adjustments in renally impaired patients. The GFR is provided as additional pertinent clinical information. GFR is reported in mL/min/1.73 sq m. Calculation based on the 2009 Chronic Kidney Disease Epidemiology Collaboration (CKD-EPI). GFR, EST. NONAFRICAN >60 >=60 07/02/2025 2:08 PM CDT [facility] Comment: Creatinine Clearance is the [...] Mckeon DO CHEMISTRY ORDERABLES Fi nal Result [facility] [address] [place] [address] from Last 3 Months Insurance [facility] Care Teams Systems Support Officer Relationship Specialty Start Date End Date Rosie Aguilera DO [address] [address] [address] [place], [place] [id number] PCP - General Family Medicine 07/02/25
[2025-08-21 19:57] LABS: Pregnancy On Board Control Positive
--- NOTE | 2025-08-21 20:35 | PC.NURSE ---
Pt. pressed call light multiple times asking for food. Pt. expressed concern because she is a diabetic and has not eaten since 1130 today. B.S. checked. Pt. is not hypoglycemic. Pt. educated that this RN will alert the MD to ask if she can eat yet. Pt. upset with this answer. Dr. Hickey notified.
--- NOTE | 2025-08-21 20:50 | PC.NURSE ---
Dr. Hickey at bedside talking with pt.
--- NOTE | 2025-08-21 21:42 | PC.NURSE ---
This RN spoke with the [facility] transfer center.
--- NOTE | 2025-08-21 22:00 | PC.NURSE ---
Pharmacy called to confirm that vancomycin and cefepime can be given at the same time. Pharmacist confirmed that they could.
[2025-08-21] MEDS: CEFEPIME 2 GM in SODIUM CHLORIDE 0.9% IV 50 ML 100 ML IVPB (22:04)
--- NOTE | 2025-08-21 22:28 | PC.NURSE ---
This RN spoke with the [facility] transfer. Pt. has a bed at [facility]. Bed #:3606-1. Accepting doctor is Jules Morgan.
--- NOTE | 2025-08-21 22:40 | PC.NURSE ---
Report called to RACHEL Nieves at [facility]. All questions answered.
--- NOTE | 2025-08-21 23:38 | PC.NURSE ---
Report given to [facility]. All questions answered.
== END 2025-08-21 23:45 | disposition short-term general hospital (02) ==
LOC: ANHED 19:30
PROVIDERS: Emergency Provider Emergency Medicine
DX: L08.89 Other specified local infections of the skin and subcutaneous tissue (principal); B95.62 Methicillin resistant Staphylococcus aureus infection as the cause of diseases classified elsewhere; K80.20 Calculus of gallbladder without cholecystitis without obstruction
CPT/HCPCS: 36415; 74177; 80053; 81001; 81025; 82948; 83605; 85025; 85610; 85730; 86140; 87040; 96365; 96366; 96368; 99285; A9270; J0692; J3373; Q9967